=== PATIENT | male | born 1980 | race Caucasian/White ===

== ENCOUNTER 2016-12-07 15:01 | Inpatient (IN) | payer OTHER ==
[~2016-12-07] VITALS: Ht 162.6 cm; Wt 106.7 kg
[~2016-12-07 15:01] MED LIST: CLX40 PO; DSY50 PO; METH10TA2 PO; PRZ1 PO
[2016-12-07] MEDS ORDERED: LORAZEPAM 1 MG TAB SL STA ×2 (15:43→16:38)
[2016-12-07] MEDS ORDERED: [UNRECOGNIZED DRUG - CODE] PO (15:46)
[2016-12-07 15:51] LABS: URINE APPEARANCE CLEAR (CLEAR); URINE BILIRUBIN NEG (NEG); URINE COLOR DK YELLOW; URINE NITRITE NEG (NEG); URINE SPECIFIC GRAVITY 1.029 (1.000-1.030); UROBILINOGEN NEG (NEG); ZZUR CULT IF INDIC CLEAN CATCH NO
[2016-12-07 15:53] LABS: MANUAL MICROSCOPIC REQUIRED? NO; REVIEW REQ? NO
[2016-12-07 16:20] LABS: BASO % 0.4 %; BASO ABS # 0.05 K/uL (0-0.2); COMPLETE YES; EOS % 1.8 %; HEMATOCRIT 44.3 % (42-52); IG% 0.6 %; LYMPH % 32.9 %; LYMPH ABS # 4.32 K/uL (1.2-3.4); MEAN CELL VOLUME 91.2 fL (80-100); MEAN CORPUSCULAR HEMOGLOBIN 31.9 pg (25-34); MEAN PLATELET VOLUME 9.5 fL (7.4-10.4); NEUT % 56.3 %; PLATELET COUNT 266 K/uL (130-400); RED BLOOD COUNT 4.86 M/uL (4.7-6.1); WHITE BLOOD COUNT 13.15 K/uL (4.8-10.8)
[2016-12-07 16:30] LABS: BENZODIAZEPINE, URINE NEG (NEG); COCAINE,URINE NEG (NEG); PHENCYCLIDINE, URINE NEG (NEG)
[2016-12-07 16:38] LABS: BUN/CREATININE RATIO 12.3 (10-20); CALCIUM 9.1 mg/dl (8.5-10.1); CREATININE 1.2 mg/dl (0.60-1.40); POTASSIUM 3.8 mmol/L (3.5-5.1)
[2016-12-07 16:48] LABS: ALB/GLOB RATIO 0.8 (0.9-2); THYROID STIMULATING HORMONE 3.81 uIu/ml (0.300-4.500)
[2016-12-07 16:51] LABS: ACETAMINOPHEN < 2 ug/ml (10-30)
--- NOTE | 2016-12-07 17:51 | EMERGENCY ROOM VISIT NOTE ---
History Report prepared by Larisa: Heidy Varghese Under the Supervision of: Dr. Stas Bellamy M.D. First contact with patient: 15:18 Chief Complaint: MENTAL HEALTH EVALUATION Stated Complaint: SUICIDAL, SEVERE PANIC ATTACK, NIGHT TERROR History of Present Illness The patient is a 36 year old male who presents to the Emergency Room with complaints of a mental health evaluation. The patient goes to the methadone clinic and receives a dose of methadone daily, but when he went to the clinic today it was closed so he did not receive his dose of methadone. After trying to go to the clinic, the patient felt that he needed to come here to get help for depression. The patient states that he is depressed and is experiencing suicidal ideations. The patient states that he has a plan and his girlfriend adds that she is concerned that he will take action if she stops watching him so closely. The patient is also experiencing panic attacks in the mornings with mood swings. He states that he used to be on Celexa, Prazosin, and Trazodone but he has not taken those for 8-9 months. The patient's girlfriend states that the patient has been seeking help and has been in contact with multiple counties to try to get into a dual diagnosis clinic, but he has been unable to do so which is why he came into the ED. The patient states that he took 5 mg of Ritalin 3 days ago, but denies any other narcotic abuse. The patient's girlfriend adds that the patient is experiencing night terrors and wakes himself up every 15 minutes. She states that the patient used to be on a low dose of sleeping pills years ago. The patient denies chest pain, shortness of breath, abdominal pain, rashes, and any recent injuries. Source of History: patient Onset: earlier today Position: head Quality: other (mental health evaluation) Associated Symptoms: No SOB, No abdominal pain, No chest pain, No rash Note: night terrors, suicidal ideations, depression, no recent injuries Review of Systems See HPI for pertinent positives & negatives. A total of 10 systems reviewed and were otherwise negative. Past Medical & Surgical Medical Problems: (1) Acute gastroenteritis (2) Acute gastroenteritis (3) ACUTE PANCREATITIS (4) CALCULUS OF KIDNEY (5) Cholecystectomy (6) Chronic back pain (7) Gallbladder problem (8) Kidney stone (9) Moderate recurrent major depression (10) NONINF GASTROENTERIT NEC (11) POIS-SEDATIVE/HYPNOT NEC (12) Spasm of back muscles (13) Stomach problems (14) Thoracic back pain Family History Patient reports no known family medical history. Social History Smoking Status: Current Every Day Smoker Alcohol Use: none Drug Use: marijuana Marital Status: in relationship Housing Status: lives with family Occupation Status: employed Current/Historical Medications Scheduled Methadone HCl (Methadose), 129 MG PO DAILY Allergies Coded Allergies: No Known Allergies (Verified , 12/07/16) Physical Exam Vital Signs Date Time Temp Pulse Resp B/P Pulse Ox O2 Delivery O2 Flow Rate FiO2 12/07/16 15:16 37.0 120 18 154/94 94 Room Air Physical Exam GENERAL: Patient is anxious appearing and in no acute distress. Patient is pacing and picking at skin. HEENT: No acute trauma, normocephalic atraumatic, mucous membranes moist, no nasal congestion, no scleral icterus. NECK: No stridor, no adenopathy, no meningismus, trachea is midline. LUNGS: No dyspnea. Clear to auscultation and equal bilaterally. No wheeze, no rhonchi. HEART: Tachycardic rate and regular rhythm. No murmurs, rubs, gallops appreciated. ABDOMEN: Soft, nontender, bowel sounds positive, no masses appreciated, no peritonitis. BACK: No midline tenderness, no CVA tenderness EXTREMITIES: Normal motion all extremities, no cyanosis, no edema. NEUROLOGIC: Alert and oriented, no acute motor or sensory deficits, no focal weakness, cranial nerves grossly intact. SKIN: No rash, no jaundice, no diaphoresis. PSYCH: Admits depression, suicidal ideation with plan, denies homicidal ideation , denies hallucinations. Medical Decision & Procedures Laboratory Results 12/07/16 16:03 Red Blood Count 4.86, Mean Corpuscular Volume 91.2, Mean Corpuscular Hemoglobin 31.9, Mean Corpuscular Hemoglobin Concent 35.0, Mean Platelet Volume 9.5, Neutrophils (%) (Auto) 56.3, Lymphocytes (%) (Auto) 32.9, Monocytes (%) (Auto) 8.0, Eosinophils (%) (Auto) 1.8, Basophils (%) (Auto) 0.4, Neutrophils # (Auto) 7.41, Lymphocytes # (Auto) 4.32, Monocytes # (Auto) 1.05, Eosinophils # (Auto) 0.24, Basophils # (Auto) 0.05 12/07/16 16:03 Test 12/07/16 15:25 12/07/16 16:03 Urine Color DK YELLOW Urine Appearance CLEAR (CLEAR) Urine pH 5.0 (4.5-7.5) Urine Specific [place] 1.029 (1.000-1.030) Urine Protein NEG (NEG) Urine Glucose (UA) NEG (NEG) Urine Ketones TRACE (NEG) Urine Occult Blood NEG (NEG) Urine Nitrite NEG (NEG) Urine Bilirubin NEG (NEG) Urine Urobilinogen NEG (NEG) Urine Leukocyte Esterase TRACE (NEG) Urine WBC (Auto) 1-5 /hpf (0-5) Urine RBC (Auto) 0-4 /hpf (0-4) Urine Hyaline Casts (Auto) 1-5 /lpf (0-5) Urine Epithelial Cells (Auto) 5-10 /lpf (0-5) Urine Bacteria (Auto) NEG (NEG) Urine Opiates Screen NEG (NEG) Urine Methadone, Qualitative POS (NEG) Urine Barbiturates NEG (NEG) Urine Phencyclidine (PCP) Level NEG (NEG) Ur Amphetamine/Methamphetamine POS (NEG) MDMA (Ecstasy) Screen POS (NEG) Urine Benzodiazepines Screen NEG (NEG) Urine Cocaine Metabolite NEG (NEG) Urine Marijuana (THC) NEG (NEG) White Blood Count 13.15 K/uL (4.8-10.8) Red Blood Count 4.86 M/uL (4.7-6.1) Hemoglobin 15.5 g/dL (14.0-18.0) Hematocrit 44.3 % (42-52) Mean Corpuscular Volume 91.2 fL (80-100) Mean Corpuscular Hemoglobin 31.9 pg (25-34) Mean Corpuscular Hemoglobin Concent 35.0 g/dl (32-36) Platelet Count 266 K/uL (130-400) Mean Platelet Volume 9.5 fL (7.4-10.4) Neutrophils (%) (Auto) 56.3 % Lymphocytes (%) (Auto) 32.9 % Monocytes (%) (Auto) 8.0 % Eosinophils (%) (Auto) 1.8 % Basophils (%) (Auto) 0.4 % Neutrophils # (Auto) 7.41 K/uL (1.4-6.5) Lymphocytes # (Auto) 4.32 K/uL (1.2-3.4) Monocytes # (Auto) 1.05 K/uL (0.11-0.59) Eosinophils # (Auto) 0.24 K/uL (0-0.5) Basophils # (Auto) 0.05 K/uL (0-0.2) RDW Standard Deviation 45.5 fL (36.4-46.3) RDW Coefficient of Variation 13.6 % (11.5-14.5) Immature Granulocyte % (Auto) 0.6 % Immature Granulocyte # (Auto) 0.08 K/uL (0.00-0.02) Anion Gap 7.0 mmol/L (3-11) Est Creatinine Clear Calc Drug Dose 95.1 ml/min Estimated GFR () 90.3 Estimated GFR (Non- 77.9 BUN/Creatinine Ratio 12.3 (10-20) Calcium Level 9.1 mg/dl (8.5-10.1) Total Bilirubin 0.5 mg/dl (0.2-1) Aspartate Amino Transf (AST/SGOT) 85 U/L (15-37) Alanine Aminotransferase (ALT/SGPT) 144 U/L (12-78) Alkaline Phosphatase 87 U/L (45-117) Total Protein 8.0 gm/dl (6.4-8.2) Albumin 3.6 gm/dl (3.4-5.0) Globulin 4.4 gm/dl (2.5-4.0) Albumin/Globulin Ratio 0.8 (0.9-2) Thyroid Stimulating Hormone (TSH) 3.810 uIu/ml (0.300-4.500) Salicylates Level 2.7 mg/dl (2.8-20) Acetaminophen Level < 2 ug/ml (10-30) Ethyl Alcohol mg/dL < 3.0 mg/dl (0-3) Laboratory results as reviewed by me. Medications Administered Medications (Trade) Dose Ordered Sig/Jaime Route Start Time Stop Time Status Last Admin Dose Admin Lorazepam (Ativan Tab) 1 mg NOW STAT SL 12/07/16 15:43 12/07/16 15:44 DC 12/07/16 15:47 1 MG Lorazepam (Ativan Tab) 1 mg NOW STAT SL 12/07/16 16:38 12/07/16 16:39 DC 12/07/16 16:41 1 MG ED Course 1523: The patient was evaluated in room A8. A complete history and physical exam was performed. 1543: Ordered Ativan Tab 1 mg SL 1638: Ordered Ativan Tab 1 mg SL 1701: I informed the psych caseworker that the patient is medically clear. 174: The psych caseworker informed me that the patient has been accepted to [address] [place] [address]. Medical Decision Differential: Mood Disorder, Overdose, Infectious, Electrolyte Abnormality, Cardiac, Hepatic, Endocrine, Toxicologic, Neurologic, amongst other pathologies entertained. 36 yr old male with long psychiatric history and previous suicide attempts arrives for mental health evaluation. Admits long time worsening of suicidal ideation and depression to point with significant other doesn't feel safe leaving him alone. Is on Methadone and sounds like not getting dose today finally put over edge to critical point he is now. Very anxious on arrival thus given PO ativan with improvement. Mild LFT elevation of uncertain etiology though without having Overdosed and no reported other issues this may just be mild dehydration related vs early MORLEY. I do not feel it precludes him from mental health evaluation but he will need follow up as outpatient for further evaluation. He is medically clear for mental health evaluation. He was accepted to [address] [place] [address] for further treatment. Impression Primary Impression: Mood disorder Additional Impressions: Suicidal ideation Methadone use Anxiety Dehydration Scribe Attestation The scribe's documentation has been prepared under my direction and personally reviewed by me in its entirety. I confirm that the note above accurately reflects all work, treatment, procedures, and medical decision making performed by me. Departure Information Dispostion Mental Health Acute Care ([address] [place] [address]) Referrals Olivia Amin M.D. (MEDICAL) (PCP) Patient Instructions My [facility] Problem Qualifiers
[2016-12-07 18:13] VITALS: BP 135/98; PULSE 112; TEMP 37.1; Ht 162.6 cm; Wt 106.7 kg
[2016-12-07] MEDS ORDERED: NURSING VERBAL MED ORDER ONE (18:15)
[2016-12-07 18:30] VITALS: O2SAT 93
[2016-12-07] MEDS ORDERED: MAGNESIUM HYDROXIDE SUSP 30 ML UDC PO PRN (19:15)
[2016-12-07] MEDS ORDERED: CLONIDINE HCL 0.1 MG TAB PO PRN (19:15)
[2016-12-07] MEDS ORDERED: ACETAMINOPHEN 325 MG TAB PO PRN (19:15)
[2016-12-07] MEDS ORDERED: SODIUM CHLORIDE 0.65% NA SOLN 45 ML (OCEAN) PRN (19:15)
[2016-12-07] MEDS ORDERED: BISMUTH SUBSALICYLATE PER ML OMNICELL CHARGE PO PRN (19:15)
[2016-12-07] MEDS ORDERED: hydrOXYzine HCL 25 MG TAB PO PRN (19:15)
[2016-12-07] MEDS ORDERED: ALUMINUM/MAGNESIUM SUSP 30 ML UDC PO PRN (19:15)
[2016-12-07] MEDS: hydrOXYzine HCL 25 MG TAB PO PRN (21:08)
[2016-12-07 23:01] VITALS: BP 129/86; PULSE 99
[2016-12-08 07:05] VITALS: BP_SYST 121; BP_SYST 123; BP_DIAS 81; BP_DIAS 83; PULSE 80; PULSE 90; TEMP 36.5
[2016-12-08] MEDS: NICOTINE 14 MG/24 HR TDSY TD SCH (08:48)
[2016-12-08] MEDS: METHADONE ORAL SOLN 2 MG/1ML PO SCH (09:05)
[2016-12-08] MEDS ORDERED: ESCITALOPRAM OXALATE 10 MG TAB PO ONE (11:00)
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
[2016-12-08] MEDS: PRAZOSIN HCL 1 MG CAP PO SCH (21:32)
[2016-12-09 06:50] VITALS: BP_SYST 140; BP_SYST 145; BP_DIAS 87; BP_DIAS 94; PULSE 65; PULSE 78; TEMP 36.7
[2016-12-09] MEDS: ESCITALOPRAM OXALATE 10 MG TAB PO SCH (08:51)
[2016-12-09] MEDS: METHADONE ORAL SOLN 2 MG/1ML PO SCH (08:52)
[2016-12-09] MEDS: NICOTINE 14 MG/24 HR TDSY TD SCH (09:00)
--- NOTE | 2016-12-09 12:54 | Psychiatric Progress Notes ---
Progress Note Date of Service Dec 09, 2016. Interval History 36 yo male admitted 12/08 on a voluntary basis after presenting with depression and suicidality after missing his appt to get his methadone that morning. Chief Complaint "Down.". Subjective Patient was seen & assessed interval progress reviewed with Treatment Team. The patient had a meeting with his fiance this AM that he felt went well. They talked about what he needed to do to get better, including taking his meds and working on his addictions. He says that he is willing to consider a rehab or a partial hospitalization. He says that his mood is "down" today, worrying about when or whether he will begin to feel better. He reports "very high" anxiety about this. He denies SI. Sleep was impaired last night, waking frequently, but did not ask for any sleep meds. He has continued to try to be isolative, but staff have encouraged him to go to group, and now says he knows that its better to talk than to hide. He is committed to attending OP appts for mental health treatment. He denies any opiate withdrawal symptoms or cravings since he is on methadone. Review of Systems Constitutional: + fatigue ENT: No dental problems, No hearing loss, No nasal symptoms, No problem reported, No sore throat, No tinnitus, No trouble swallowing, No unusual epistaxis Respiratory: No cough, No dyspnea at rest, No dyspnea on exertion, No hemoptysis, No problem reported, No shortness of breath, No sputum, No wheezing Cardiovascular: No PND, No chest pain, No claudication, No edema, No orthopnea , No palpitations, No problem reported Abdomen: No GI bleeding, No constipation, No diarrhea, No nausea, No pain, No problem reported, No vomiting Musculoskeletal: No calf pain, No joint pain, No muscle pain, No problem reported, No swelling Neurologic: No balance problems, No memory loss, No numbness/tingling, No paralysis, No problem reported, No vertigo, No weakness Psychiatric: + anxiety, + depression symptoms, + insomnia Integumentary: No bleeding, No color change, No itch, No new/changing skin lesions, No problem reported, No rash Sleep Information Total Hours of Sleep: 6.25 Meal Information Percent of Breakfast Consumed: 0 Percent of Lunch Consumed: 90 Percent of Dinner Consumed: 50 Mental Status Exam During interview pt is: alert and oriented, cooperative Appearance: appropriately dressed Eye contact is: fair Motor behavior is: steady gait & station Speech: normal in rate, rhythm & volume Affect: mood congruent, depressed, flat Mood is: depressed Thought process: goal directed Thought content: reality based without delusions Suicidal thought are: denied Homicidal thoughts are: denied Hallucinations: denies auditory, denies visual Cognition: memory grossly intact, attention grossly intact Intelligence estimated to be: average Insight: impaired Judgement: impaired Impression Adjusting to the unit and to restarting meds. Denies side effects. Is cooperative with treatment including possible inpatient rehab. Will initiate referrals today. REmains with poor coping skills, but willing to listen to staff's encouragements to get out of bed and be with his peers. Appears anxious , and in need of direction. Plan (1) Major depressive disorder, recurrent severe without psychotic features 12/09 - Continue Lexapro 10 mg daily - Q 15 min checks for safety - Encourage participation in group and individual counseling - Family meeting done today with fiance - The patient will psychiatric aftercare - Assist the patient to learn and utilize healthy coping strategies. - EKG completed QTC WNL (2) PTSD (post-traumatic stress disorder) (3) Opiate dependence 12/09 - Continue OP dosing of Methadone - Coordinate with [facility] (4) Cannabis use disorder, mild, abuse 12/09 - Recommend abstinence (5) Tobacco use disorder 12/09 - Counseled about the detrimental effects of nicotine - Provided with a nicotine patch for cessation (6) Antisocial personality disorder 12/09 - Recommend therapy Discharge / Aftercare Planning Primary Care Physician: Name: Therapist: Name: memo Environmental Engineering Manager: Name: memo Visit Code E&M Code: 64867 Risk Factors Assessment Male: Yes : Yes /single/: Yes Higher / Fall in social status: No Health problems: No Mental Health Diagnoses: Yes Substance use disorders: Yes Protective Factors Assessment Rastafarian beliefs: No : No Responsible for young children: No Employed: No Stable relationships: Yes Supportive family: Yes Data Vital Signs Last 24 Hrs: Date Time Temp Pulse Resp B/P Pulse Ox O2 Delivery O2 Flow Rate FiO2 12/09/16 06:50 36.7 78 16 140/94 65 145/87 Meds Administered Last 24 Hrs: Meds Administered (Past 24Hrs) Medications (Trade) Dose Ordered Sig/Jaime Route Start Time Stop Time Status Last Admin Dose Admin Lorazepam (Ativan Tab) 1 mg NOW STAT SL 12/07/16 15:43 12/07/16 15:44 DC 12/07/16 15:47 1 MG Lorazepam (Ativan Tab) 1 mg NOW STAT SL 12/07/16 16:38 12/07/16 16:39 DC 12/07/16 16:41 1 MG Hydroxyzine HCl (Vistaril Tab) 50 mg HSZ PRN PO 12/07/16 19:15 01/06/17 19:14 12/07/16 21:08 50 MG Clonidine HCl (Catapres Tab) 0.1 mg TID PRN PO 12/07/16 19:15 12/08/16 09:57 DC 12/07/16 22:58 0.1 MG Methadone HCl (Methadone HCl) 129 mg DAILY PO 12/08/16 09:00 12/22/16 08:59 12/09/16 08:52 129 MG Prazosin HCl (Prazosin) 2 mg HS PO 12/08/16 22:00 01/07/17 21:59 12/08/16 21:32 2 MG Escitalopram Oxalate (Lexapro Tab) 10 mg QAM PO 12/09/16 09:00 01/08/17 08:59 12/09/16 08:51 10 MG Escitalopram Oxalate (Lexapro Tab) 10 mg NOW ONCE PO 12/08/16 11:00 12/08/16 11:01 DC 12/08/16 10:50 10 MG Lab Results Last 24 Hrs: 12/07/16 16:03 Red Blood Count 4.86, Mean Corpuscular Volume 91.2, Mean Corpuscular Hemoglobin 31.9, Mean Corpuscular Hemoglobin Concent 35.0, Mean Platelet Volume 9.5, Neutrophils (%) (Auto) 56.3, Lymphocytes (%) (Auto) 32.9, Monocytes (%) (Auto) 8.0, Eosinophils (%) (Auto) 1.8, Basophils (%) (Auto) 0.4, Neutrophils # (Auto) 7.41, Lymphocytes # (Auto) 4.32, Monocytes # (Auto) 1.05, Eosinophils # (Auto) 0.24, Basophils # (Auto) 0.05 12/07/16 16:03 Test 12/07/16 15:25 12/07/16 16:03 Urine Color DK YELLOW Urine Appearance CLEAR (CLEAR) Urine pH 5.0 (4.5-7.5) Urine Specific [place] 1.029 (1.000-1.030) Urine Protein NEG (NEG) Urine Glucose (UA) NEG (NEG) Urine Ketones TRACE (NEG) Urine Occult Blood NEG (NEG) Urine Nitrite NEG (NEG) Urine Bilirubin NEG (NEG) Urine Urobilinogen NEG (NEG) Urine Leukocyte Esterase TRACE (NEG) Urine WBC (Auto) 1-5 /hpf (0-5) Urine RBC (Auto) 0-4 /hpf (0-4) Urine Hyaline Casts (Auto) 1-5 /lpf (0-5) Urine Epithelial Cells (Auto) 5-10 /lpf (0-5) Urine Bacteria (Auto) NEG (NEG) Urine Opiates Screen NEG (NEG) Urine Methadone, Qualitative POS (NEG) Urine Barbiturates NEG (NEG) Urine Phencyclidine (PCP) Level NEG (NEG) Ur Amphetamine/Methamphetamine POS (NEG) MDMA (Ecstasy) Screen POS (NEG) Urine Benzodiazepines Screen NEG (NEG) Urine Cocaine Metabolite NEG (NEG) Urine Marijuana (THC) NEG (NEG) White Blood Count 13.15 K/uL (4.8-10.8) Red Blood Count 4.86 M/uL (4.7-6.1) Hemoglobin 15.5 g/dL (14.0-18.0) Hematocrit 44.3 % (42-52) Mean Corpuscular Volume 91.2 fL (80-100) Mean Corpuscular Hemoglobin 31.9 pg (25-34) Mean Corpuscular Hemoglobin Concent 35.0 g/dl (32-36) Platelet Count 266 K/uL (130-400) Mean Platelet Volume 9.5 fL (7.4-10.4) Neutrophils (%) (Auto) 56.3 % Lymphocytes (%) (Auto) 32.9 % Monocytes (%) (Auto) 8.0 % Eosinophils (%) (Auto) 1.8 % Basophils (%) (Auto) 0.4 % Neutrophils # (Auto) 7.41 K/uL (1.4-6.5) Lymphocytes # (Auto) 4.32 K/uL (1.2-3.4) Monocytes # (Auto) 1.05 K/uL (0.11-0.59) Eosinophils # (Auto) 0.24 K/uL (0-0.5) Basophils # (Auto) 0.05 K/uL (0-0.2) RDW Standard Deviation 45.5 fL (36.4-46.3) RDW Coefficient of Variation 13.6 % (11.5-14.5) Immature Granulocyte % (Auto) 0.6 % Immature Granulocyte # (Auto) 0.08 K/uL (0.00-0.02) Anion Gap 7.0 mmol/L (3-11) Est Creatinine Clear Calc Drug Dose 95.1 ml/min Estimated GFR () 90.3 Estimated GFR (Non- 77.9 BUN/Creatinine Ratio 12.3 (10-20) Calcium Level 9.1 mg/dl (8.5-10.1) Total Bilirubin 0.5 mg/dl (0.2-1) Aspartate Amino Transf (AST/SGOT) 85 U/L (15-37) Alanine Aminotransferase (ALT/SGPT) 144 U/L (12-78) Alkaline Phosphatase 87 U/L (45-117) Total Protein 8.0 gm/dl (6.4-8.2) Albumin 3.6 gm/dl (3.4-5.0) Globulin 4.4 gm/dl (2.5-4.0) Albumin/Globulin Ratio 0.8 (0.9-2) Thyroid Stimulating Hormone (TSH) 3.810 uIu/ml (0.300-4.500) Salicylates Level 2.7 mg/dl (2.8-20) Acetaminophen Level < 2 ug/ml (10-30) Ethyl Alcohol mg/dL < 3.0 mg/dl (0-3) Hepatitis C Antibody NEG (NEG) Problem Qualifiers (1) Opiate dependence: Substance use status: with opioid-induced mood disorder Qualified Codes: F11.24 - Opioid dependence with opioid-induced mood disorder
[2016-12-09] MEDS: hydrOXYzine HCL 25 MG TAB PO PRN ×2 (22:13→22:54)
[2016-12-09] MEDS: PRAZOSIN HCL 1 MG CAP PO SCH (22:13)
[2016-12-09 22:37] VITALS: BP 150/105; PULSE 68
[2016-12-10 06:39] VITALS: BP_SYST 125; BP_SYST 135; BP_DIAS 82; BP_DIAS 84; PULSE 64; PULSE 90; TEMP 36.8
[2016-12-10] MEDS: ESCITALOPRAM OXALATE 10 MG TAB PO SCH (08:58)
[2016-12-10] MEDS: METHADONE ORAL SOLN 2 MG/1ML PO SCH (08:58)
[2016-12-10] MEDS: NICOTINE 14 MG/24 HR TDSY TD SCH (09:00)
--- NOTE | 2016-12-10 10:51 | Psychiatric Progress Notes ---
Progress Note Date of Service Dec 10, 2016. Interval History 36 yo male admitted 12/08 on a voluntary basis after presenting with depression and suicidality after missing his appt to get his methadone that morning. Chief Complaint "I had an argument with my finance last night, Bad timing,I really did not need that". Subjective Patient was seen & assessed interval progress reviewed with nursing. Pt had a family meeting with his finance yesterday that he stated went ok. However, afterwards his finance and him had several phone calls that were rather intense with them arguing. His finance also contact the nursing staff last evening with a intense tone over concerns that pt could be discharged before he was stabilized. Last night at 2034 he signed a 72 hour notice tied to being upset. He shared that he really did not sleep much last night and that this was worse then his baseline poor sleep. This morning pt is not up for talking much about the situation between her and him. He is quite tired and feels upset. He views last night's tension with her as sending him backwards and making it even harder for him to engage in groups and in being an active participant to his care. He described not having things to live for besides his relationship with his finance and with his children. HE did not voice a suicidal plan or intent but alluded to para-suicidal concerns given his concerns about the relationship. He is still interested in inpt rehab. He denied cravings for substances. He is considering rescinding the 72 hour notice but not yet ready to do so. He endorsed constant paranoid thinking. He denied AH or VH. He denied HI. Pt denied s/e to lexapro, although he is a bit weary of possible sexual s/e. He vies prazosin as helping his sleep terrors but not his insomnia and has not foudn Vistaril helpful. He is seeking to be rx'd trazodone since it was helpful in the past, stating took it at 150mg at bedtime. Review of Systems Constitutional: + fatigue Respiratory: No cough, No dyspnea at rest, No dyspnea on exertion, No hemoptysis, No problem reported, No shortness of breath, No sputum, No wheezing Cardiovascular: No PND, No chest pain, No claudication, No edema, No orthopnea , No palpitations, No problem reported Abdomen: No GI bleeding, No constipation, No diarrhea, No nausea, No pain, No problem reported, No vomiting Neurologic: No balance problems, No memory loss, No numbness/tingling, No paralysis, No problem reported, No vertigo, No weakness Psychiatric: + anhedonism, + anxiety, + depression symptoms, + insomnia Sleep Information Total Hours of Sleep: 6.50 pt reported rather limited sleep last night Meal Information Percent of Breakfast Consumed: 0 Percent of Lunch Consumed: 100 Percent of Dinner Consumed: 90 Mental Status Exam During interview pt is: alert and oriented, cooperative Appearance: appropriately dressed Eye contact is: poor Motor behavior is: steady gait & station Speech: normal in rate, rhythm & volume, other (speech with increased latency of onset and slightly low in vol) Affect: mood congruent, depressed, flat Mood is: depressed Thought process: goal directed Thought content: reality based without delusions Suicidal thought are: denied Homicidal thoughts are: denied Hallucinations: denies auditory, denies visual Cognition: memory grossly intact, attention grossly intact Intelligence estimated to be: average Insight: impaired Judgement: impaired Impression He was getting adjusted to the unit, last evening had argument with gf that got intense (phone calls) and pt signed 72 hour notice. Pt is seeking referrals to in substance treatment centers and is considering rescinding the 72 hour notice, indicating likely to do but not quite yet. HE is seeking to have some time to settle self down from yesterdays argument and then reconnect with finance. He is finding it quite hard to attend groups today. Sleep impacted, pt seeking trial fo trazodone that was helpful in past. He has poor coping skills, but willing to listen to staff's encouragements. Appears anxious, and in need of direction but also sensitive to feeling pushed. Plan (1) Major depressive disorder, recurrent severe without psychotic features 12/09 - Continue Lexapro 10 mg daily - Q 15 min checks for safety - Encourage participation in group and individual counseling - Family meeting done today with fiance - The patient will psychiatric aftercare - Assist the patient to learn and utilize healthy coping strategies. - EKG completed QTC WNL 12/10 - continue lexapro 10mg qday - staff to maintain boundaries and unit rules with gf (appropriate times for phone calls) - add trazodone hs for sleep, will start at trazodone at 100mg hs given past response to trazodone - encourage group participation - seeking inpt substance rehab - referrals placed 12/09 - pt states leaning towards rescinding 72 hour notice (2) PTSD (post-traumatic stress disorder) (3) Opiate dependence 12/09 - Continue OP dosing of Methadone - Coordinate with [facility] (4) Cannabis use disorder, mild, abuse 12/09 - Recommend abstinence (5) Tobacco use disorder 12/09 - Counseled about the detrimental effects of nicotine - Provided with a nicotine patch for cessation (6) Antisocial personality disorder 12/09 - Recommend therapy Discharge / Aftercare Planning Primary Care Physician: Name: Psychiatrist: Name: [employer] Medication Management Date of Appointment: Feb 14, 2017 Time of Appointment: Therapist: Name: memo Tool Checker: Name: memo Visit Code E&M Code: 19592 Risk Factors Assessment Male: Yes : Yes /single/: Yes Higher / Fall in social status: No Health problems: No Mental Health Diagnoses: Yes Substance use disorders: Yes Protective Factors Assessment Sikh beliefs: No : No Responsible for young children: No Employed: No Stable relationships: Yes Supportive family: Yes Data Vital Signs Last 24 Hrs: Date Time Temp Pulse Resp B/P Pulse Ox O2 Delivery O2 Flow Rate FiO2 12/10/16 06:39 36.8 64 16 125/82 90 135/84 12/09/16 22:37 68 16 150/105 Meds Administered Last 24 Hrs: Meds Administered (Past 24Hrs) Medications (Trade) Dose Ordered Sig/Jaime Route Start Time Stop Time Status Last Admin Dose Admin Prazosin HCl (Prazosin) 2 mg HS PO 12/08/16 22:00 01/07/17 21:59 12/09/16 22:13 2 MG Escitalopram Oxalate (Lexapro Tab) 10 mg QAM PO 12/09/16 09:00 01/08/17 08:59 12/10/16 08:58 10 MG Escitalopram Oxalate (Lexapro Tab) 10 mg NOW ONCE PO 12/08/16 11:00 12/08/16 11:01 DC 12/08/16 10:50 10 MG Problem Qualifiers (1) Opiate dependence: Substance use status: with opioid-induced mood disorder Qualified Codes: F11.24 - Opioid dependence with opioid-induced mood disorder
[2016-12-10] MEDS: PRAZOSIN HCL 1 MG CAP PO SCH (22:15)
[2016-12-10] MEDS: TRAZODONE HCL 100 MG TAB PO SCH (22:15)
[2016-12-11 06:53] VITALS: BP_SYST 100; BP_SYST 102; BP_DIAS 65; BP_DIAS 67; PULSE 69; PULSE 96; TEMP 36.7
[2016-12-11] MEDS: ESCITALOPRAM OXALATE 10 MG TAB PO SCH (08:34)
[2016-12-11] MEDS: METHADONE ORAL SOLN 2 MG/1ML PO SCH (08:35)
[2016-12-11] MEDS: NICOTINE 14 MG/24 HR TDSY TD SCH (08:38)
--- NOTE | 2016-12-11 21:12 | Psychiatric Progress Notes ---
Progress Note Date of Service Dec 11, 2016. Interval History 36 yo male admitted 12/08 on a voluntary basis after presenting with depression and suicidality after missing his appt to get his methadone that morning. Chief Complaint "working things out with finance". after speaking to her last night Subjective Patient was seen & assessed interval progress reviewed with nursing pt has not yet rescind his 72 hour notice, this morning he stated leaning 90% towards doing so likely after finance visits in afternoon, inquired about the connection between finance and his 72 hour notice and he was not sure. Does admitted to distress over their argument Monday night and how it made him want to leave [place] at that time. Pt spoke to her by phone last evening and clarified things and she is more settled per him ( argument over old emails before they were together per pt). pt vaguely endorsed SI with hopelessness denied plan but endorsed not safe to leave. He endorsed not being ready to leave. He was not attending groups but did attend a group later in morning per staff. He endorsed paranoid thinking towards others that are described in manner of social anxiety. He endorsed hearing him named called yesterday in voice that sounded like his mother, pt was in his bed laying and does not think was asleep but had been drifting in and out of sleep at times yesterday, he stated a few times heard things like that in past few weeks but never before that. He denied other hallucination or related concerns. depression ongoing, sleep improved some last night but still only fair and some insomnia, pt finds trazodone alleviating factor and denied s/e from it , denied feeling more fatigue this morning, per staff ,did eat breakfast with peers. seeming shy and anxious. pt seeking inpt rehab but weary of process to get accepted denied craving of substances Sleep Information Total Hours of Sleep: 5.00 Meal Information Percent of Breakfast Consumed: 100 Percent of Lunch Consumed: 100 Percent of Dinner Consumed: 100 Mental Status Exam During interview pt is: alert and oriented, cooperative Appearance: appropriately dressed Eye contact is: fair Motor behavior is: steady gait & station Speech: normal in rate, rhythm & volume, other Affect: mood congruent, depressed, flat, anxious Mood is: depressed, anxious Thought process: goal directed Thought content: reality based without delusions Suicidal thought are: denied (specific thougths but referred to concerns and hopelessness ), Plan: denied, Intent: denied Homicidal thoughts are: denied Hallucinations: auditory (but likely hypnopompic of hearing his named called, perhaps even actually by staff ) Cognition: memory grossly intact, attention grossly intact Intelligence estimated to be: average Insight: impaired Judgement: impaired Impression 72 notice signed not rescinded yet despite stating leaning to, seeking inpt rehab, 72 hour notice up 12/12. 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 suicidality lexapro, prazosin, trazodone added for insomnia Plan (1) Major depressive disorder, recurrent severe without psychotic features 12/09 - Continue Lexapro 10 mg daily - Q 15 min checks for safety - Encourage participation in group and individual counseling - Family meeting done today with fiance - The patient will psychiatric aftercare - Assist the patient to learn and utilize healthy coping strategies. - EKG completed QTC WNL 12/10 - continue lexapro 10mg qday - staff to maintain boundaries and unit rules with gf (appropriate times for phone calls) - add trazodone hs for sleep, will start at trazodone at 100mg hs given past response to trazodone - encourage group participation - seeking inpt substance rehab - referrals placed 12/09 - pt states leaning towards rescinding 72 hour notice 12/11 maintain meds unchanged (2) PTSD (post-traumatic stress disorder) (3) Opiate dependence 12/09 - Continue OP dosing of Methadone - Coordinate with [facility] (4) Cannabis use disorder, mild, abuse 12/09 - Recommend abstinence (5) Tobacco use disorder 12/09 - Counseled about the detrimental effects of nicotine - Provided with a nicotine patch for cessation (6) Antisocial personality disorder 12/09 - Recommend therapy Discharge / Aftercare Planning Primary Care Physician: Name: Psychiatrist: Name: Linda [employer]RO[employer] Medication Management Date of Appointment: Feb 14, 2017 Time of Appointment: Therapist: Name: memo Asset Card Clerk: Name: memo Visit Code E&M Code: 64825 Risk Factors Assessment Male: Yes : Yes /single/: Yes Higher / Fall in social status: No Health problems: No Mental Health Diagnoses: Yes Substance use disorders: Yes Protective Factors Assessment Buddhist beliefs: No : No Responsible for young children: No Employed: No Stable relationships: Yes Supportive family: Yes Data Vital Signs Last 24 Hrs: Date Time Temp Pulse Resp B/P Pulse Ox O2 Delivery O2 Flow Rate FiO2 12/11/16 06:53 36.7 69 16 100/65 96 102/67 Meds Administered Last 24 Hrs: Meds Administered (Past 24Hrs) Medications (Trade) Dose Ordered Sig/Jaime Route Start Time Stop Time Status Last Admin Dose Admin Trazodone HCl (Desyrel Tab) 100 mg HS PO 12/10/16 22:00 01/09/17 21:59 12/10/16 22:15 100 MG Problem Qualifiers (1) Opiate dependence: Substance use status: with opioid-induced mood disorder Qualified Codes: F11.24 - Opioid dependence with opioid-induced mood disorder
[2016-12-11] MEDS: TRAZODONE HCL 100 MG TAB PO SCH (22:59)
[2016-12-11] MEDS: PRAZOSIN HCL 1 MG CAP PO SCH (22:59)
[2016-12-12 07:00] VITALS: BP_SYST 102; BP_SYST 111; BP_DIAS 72; BP_DIAS 80; PULSE 60; PULSE 91; TEMP 36.4
[2016-12-12] MEDS: NICOTINE 14 MG/24 HR TDSY TD SCH (09:00)
[2016-12-12] MEDS: ESCITALOPRAM OXALATE 10 MG TAB PO SCH (09:17)
[2016-12-12] MEDS: METHADONE ORAL SOLN 2 MG/1ML PO SCH (09:18)
[2016-12-12 12:30] LABS: METHADONE METABOLITE 31100 NG/ML (CUTOFF=100); METHADONE VERIFIC >40000 NG/ML (CUTOFF=100)
--- NOTE | 2016-12-12 13:15 | Psychiatric Progress Notes ---
Progress Note Date of Service Dec 12, 2016. Interval History 36 yo male admitted 12/08 on a voluntary basis after presenting with depression and suicidality after missing his appt to get his methadone that morning. Chief Complaint "Okay, I had a little setback". Subjective Patient was seen & assessed interval progress reviewed with Treatment Team. Staff report he had a difficult weekend, was fighting with his girlfriend, and agreed to meet with the [facility] about inpatient rehab referrals. He is refusing groups, saying they make him anxious. He endorses a tumultuous relationship with his girlfriend, and is requesting she be allowed to visit him outside normal visiting hours today. He was upset when he was given a roommate, saying he'd prefer to have a private room. Today, he says he is going to go to groups and make an effort to participate in his treatment. He also rescinded his 72 hour notice, saying he "needs to do what I came here to do," and wants to "get started on meds, stay on them, go to my appointments, and actually follow through." He says he "wants to get stabilized," and recognizes that he has not been compliant with treatment in the past, which led to relapse. He denies SI and says his mood is "improving." He rates it a 6 out of 10. Appetite is good, sleep is impaired but improving with trazodone. He denies side effects to meds. Sleep Information Total Hours of Sleep: 4.50 Meal Information Percent of Breakfast Consumed: 75 Percent of Lunch Consumed: 100 Percent of Dinner Consumed: 100 Mental Status Exam During interview pt is: alert and oriented, cooperative Appearance: appropriately dressed, appropriately groomed (obese, long hair pulled back, agrawal, malodorous) Eye contact is: fair Motor behavior is: steady gait & station, no abnormal motor movements, psychomotor retardation Speech: normal in rate, rhythm & volume, other Affect: mood congruent, depressed, anxious Mood is: other ("improving") Thought process: goal directed Thought content: reality based without delusions Suicidal thought are: denied Homicidal thoughts are: denied Hallucinations: denies auditory, denies visual Cognition: memory grossly intact, attention grossly intact Intelligence estimated to be: average Insight: impaired Judgement: impaired Impression He submitted a 72 notice after getting into a fight with his girlfriend, but rescinded it today. He has been isolating and refusing groups, but today agrees to go. He is interested in inpt rehab, and [facility] staff met with him today. 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 suicidality Plan (1) Major depressive disorder, recurrent severe without psychotic features 12/09 - Continue Lexapro 10 mg daily - Q 15 min checks for safety - Encourage participation in group and individual counseling - Family meeting done today with kurtance - The patient will psychiatric aftercare - Assist the patient to learn and utilize healthy coping strategies. - EKG completed QTC WNL 12/10 - continue lexapro 10mg qday - staff to maintain boundaries and unit rules with gf (appropriate times for phone calls) - add trazodone hs for sleep, will start at trazodone at 100mg hs given past response to trazodone - encourage group participation - seeking inpt substance rehab - referrals placed 12/09 - pt states leaning towards rescinding 72 hour notice 12/11 - maintain meds unchanged 12/12 - Continue escitalopram 10mg, trazodone 100mg qhs, and prazosin 2mg qhs. (2) PTSD (post-traumatic stress disorder) Meds as above. Refer for therapy. (3) Opiate dependence 12/09 - Continue OP dosing of Methadone - Coordinate with [facility] (4) Cannabis use disorder, mild, abuse 12/09 - Recommend abstinence - Will refer for outpatient therapy and psychiatric f/u to address mental illness and substance abuse. (5) Tobacco use disorder 12/09 - Counseled about the detrimental effects of nicotine - Provided with a nicotine patch for cessation (6) Antisocial personality disorder 12/09 - Recommend therapy Discharge / Aftercare Planning Primary Care Physician: Name: Psychiatrist: Name: Linda Mc4 Medication Management Date of Appointment: Feb 14, 2017 Time of Appointment: Therapist: Name: memo Illuminator: Name: memo Visit Code E&M Code: 65133 Risk Factors Assessment Male: Yes : Yes /single/: Yes Higher / Fall in social status: No Access to guns: No Health problems: No Mental Health Diagnoses: Yes Substance use disorders: Yes Protective Factors Assessment Gnosticism beliefs: No : No Responsible for young children: No Employed: No Stable relationships: Yes Supportive family: Yes Data Vital Signs Last 24 Hrs: Date Time Temp Pulse Resp B/P Pulse Ox O2 Delivery O2 Flow Rate FiO2 12/12/16 07:00 36.4 60 16 102/80 91 111/72 Meds Administered Last 24 Hrs: Meds Administered (Past 24Hrs) Medications (Trade) Dose Ordered Sig/Jaime Route Start Time Stop Time Status Last Admin Dose Admin Trazodone HCl (Desyrel Tab) 100 mg HS PO 12/10/16 22:00 01/09/17 21:59 12/11/16 22:59 100 MG Problem Qualifiers (1) Opiate dependence: Substance use status: with opioid-induced mood disorder Qualified Codes: F11.24 - Opioid dependence with opioid-induced mood disorder
[2016-12-12] MEDS: TRAZODONE HCL 100 MG TAB PO SCH (22:43)
[2016-12-12] MEDS: PRAZOSIN HCL 1 MG CAP PO SCH (22:44)
[2016-12-13 06:59] VITALS: BP_SYST 121; BP_SYST 128; BP_DIAS 73; BP_DIAS 80; PULSE 54; PULSE 85; TEMP 36.5
[2016-12-13] MEDS: NICOTINE 14 MG/24 HR TDSY TD SCH (08:12)
[2016-12-13] MEDS: ESCITALOPRAM OXALATE 10 MG TAB PO SCH (08:39)
[2016-12-13] MEDS: METHADONE ORAL SOLN 2 MG/1ML PO SCH (08:39)
--- NOTE | 2016-12-13 11:50 | Psychiatric Progress Notes ---
Progress Note Date of Service Dec 13, 2016. Interval History 36 yo male admitted 12/08 on a voluntary basis after presenting with depression and suicidality after missing his appt to get his methadone that morning. Chief Complaint "Pretty tired this morning". Subjective Patient was seen & assessed interval progress reviewed with nursing. Staff report he attended and participated in groups yesterday, was appropriate in his interactions with staff and peers, but continued to demonstrate flat affect. He had a visit with his fiance, which she said went well. Today, he says he felt very tired in the morning, due to poor sleep overnight, and would like to increase his trazodone to 150 mg. He says that his mood is improved, and he is proud of himself for forcing himself to go to groups and participate even when he doesn't feel like it. He describes his mood as "it's getting more positive. " He really enjoyed a group last evening about different ways to think about and deal with anxiety, and says he feels "ashamed" for refusing groups over the weekend, and upset that he missed out on an opportunity to feel better. He denies suicidal thoughts, but continues to struggle to "stay as positive as possible." [facility] treatment, and expresses frustration that they did not communicate to him what his options were or even when they get back in touch with him. Sleep Information Total Hours of Sleep: 3.50 Meal Information Percent of Breakfast Consumed: 100 Percent of Lunch Consumed: 25 Percent of Dinner Consumed: 100 Mental Status Exam During interview pt is: alert and oriented, cooperative Appearance: appropriately dressed, appropriately groomed (obese, long hair pulled back, agrawal, tattoo on left hand) Eye contact is: fair Motor behavior is: steady gait & station, no abnormal motor movements, psychomotor retardation Speech: normal in rate, rhythm & volume, other Affect: mood congruent, depressed, anxious Mood is: other ("improving") Thought process: goal directed Thought content: reality based without delusions Suicidal thought are: denied Homicidal thoughts are: denied Hallucinations: denies auditory, denies visual Cognition: memory grossly intact, attention grossly intact Intelligence estimated to be: average Insight: impaired Judgement: impaired Impression He submitted a 72 notice after getting into a fight with his girlfriend, but rescinded it today. He has been isolating and refusing groups, but today agrees to go. He is interested in inpt rehab, and [facility] staff met with him today. 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 suicidality Plan (1) Major depressive disorder, recurrent severe without psychotic features 12/09 - Continue Lexapro 10 mg daily - Q 15 min checks for safety - Encourage participation in group and individual counseling - Family meeting done today with fiance - The patient will psychiatric aftercare - Assist the patient to learn and utilize healthy coping strategies. - EKG completed QTC WNL 12/10 - continue lexapro 10mg qday - staff to maintain boundaries and unit rules with gf (appropriate times for phone calls) - add trazodone hs for sleep, will start at trazodone at 100mg hs given past response to trazodone - encourage group participation - seeking inpt substance rehab - referrals placed 12/09 - pt states leaning towards rescinding 72 hour notice 12/11 - maintain meds unchanged 12/12 - Continue escitalopram 10mg, trazodone 100mg qhs, and prazosin 2mg qhs. 12/13 - Increase trazodone to 150 mg daily at bedtime to target sleep. - [facility] about substance abuse treatment options. (2) PTSD (post-traumatic stress disorder) Meds as above. Refer for therapy. (3) Opiate dependence 12/09 - Continue OP dosing of Methadone - Coordinate with [facility] (4) Cannabis use disorder, mild, abuse 12/09 - Recommend abstinence - Will refer for outpatient therapy and psychiatric f/u to address mental illness and substance abuse. (5) Tobacco use disorder 12/09 - Counseled about the detrimental effects of nicotine - Provided with a nicotine patch for cessation (6) Antisocial personality disorder 12/09 - Recommend therapy Discharge / Aftercare Planning Primary Care Physician: Name: Psychiatrist: Name: Linda Atkinson Medication Management Date of Appointment: Feb 14, 2017 Time of Appointment: [id number] Therapist: Name: memo Microbiology Director: Name: Miley Maldonado at [facility] [place] Phone Number: [phone] Visit Code E&M Code: 84025 Risk Factors Assessment Male: Yes : Yes /single/: Yes Higher / Fall in social status: No Access to guns: No Health problems: No Mental Health Diagnoses: Yes Substance use disorders: Yes Previous attempt: Yes Family history of suicide: No Previous psychiatric stay: Yes Hopelessness: Yes Smoker: Yes Protective Factors Assessment Alevism beliefs: No : No Responsible for young children: No Employed: No Stable relationships: Yes Supportive family: Yes Data Vital Signs Last 24 Hrs: Date Time Temp Pulse Resp B/P Pulse Ox O2 Delivery O2 Flow Rate FiO2 12/13/16 06:59 36.5 54 16 128/80 85 121/73 Problem Qualifiers (1) Opiate dependence: Substance use status: with opioid-induced mood disorder Qualified Codes: F11.24 - Opioid dependence with opioid-induced mood disorder
[2016-12-13] MEDS: TRAZODONE HCL 50 MG TAB PO SCH (22:51)
[2016-12-13] MEDS: PRAZOSIN HCL 1 MG CAP PO SCH (22:51)
[2016-12-14 06:38] VITALS: BP_SYST 103; BP_SYST 106; BP_DIAS 73; BP_DIAS 74; PULSE 76; PULSE 90; TEMP 36.3
[2016-12-14] MEDS: NICOTINE 14 MG/24 HR TDSY TD SCH (09:00)
[2016-12-14] MEDS: ESCITALOPRAM OXALATE 10 MG TAB PO SCH (09:11)
[2016-12-14] MEDS: METHADONE ORAL SOLN 2 MG/1ML PO SCH (09:11)
--- NOTE | 2016-12-14 10:11 | Psychiatric Progress Notes ---
Progress Note Date of Service Dec 14, 2016. Interval History 36 yo male admitted 12/08 on a voluntary basis after presenting with depression and suicidality after missing his appt to get his methadone that morning. Chief Complaint "I just can't go". Subjective Patient was seen & assessed interval progress reviewed with treatment team. Patient had previously expressed his willingness for inpatient substance abuse treatment. Today he is tearful and states "I'm sorry if I misled them (Dr. Sanchez and psychologist social) but I can't tell my son that I won't see him for that long." Patient says that he talked to 7 year old son in the phone last night and his son wants him to come home. Patient indicates that he didn't really think we would be able to find an inpatient placement for him and that he wants to do "intensive outpatient" and see a psychiatrist locally. He reports that he has been trying to participate in groups and that his mood is "pretty good." He reports no improvement in his anxiety since her was admitted. He is willing to continue with his current medications. He is having some trouble falling asleep. He denies suicidal ideation. Review of Systems Constitutional: + fatigue Sleep Information Total Hours of Sleep: 4.00 Meal Information Percent of Breakfast Consumed: 100 Percent of Lunch Consumed: 100 Percent of Dinner Consumed: 100 Mental Status Exam During interview pt is: alert and oriented, cooperative Appearance: appropriately dressed, disheveled (and malodorous) Eye contact is: fair Motor behavior is: steady gait & station, no abnormal motor movements, psychomotor retardation Speech: normal in rate, rhythm & volume Affect: depressed, labile, anxious Mood is: other ("improving") Thought process: goal directed Thought content: reality based without delusions Suicidal thought are: denied Homicidal thoughts are: denied Hallucinations: denies auditory, denies visual Cognition: memory grossly intact, attention grossly intact Intelligence estimated to be: average Insight: impaired Judgement: impaired Impression He submitted a 72 notice after getting into a fight with his girlfriend, but rescinded it today. He has been isolating and refusing groups, but today agrees to go. He is interested in inpt rehab, and [facility] staff met with him today. 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 suicidality Plan (1) Major depressive disorder, recurrent severe without psychotic features 12/09 - Continue Lexapro 10 mg daily - Q 15 min checks for safety - Encourage participation in group and individual counseling - Family meeting done today with fiance - The patient will psychiatric aftercare - Assist the patient to learn and utilize healthy coping strategies. - EKG completed QTC WNL 12/10 - continue lexapro 10mg qday - staff to maintain boundaries and unit rules with gf (appropriate times for phone calls) - add trazodone hs for sleep, will start at trazodone at 100mg hs given past response to trazodone - encourage group participation - seeking inpt substance rehab - referrals placed 12/09 - pt states leaning towards rescinding 72 hour notice 12/11 - maintain meds unchanged 12/12 - Continue escitalopram 10mg, trazodone 100mg qhs, and prazosin 2mg qhs. 12/13 - Increase trazodone to 150 mg daily at bedtime to target sleep. - [facility] about [facility] abuse treatment options. 12/14 -Patient will continue same medications. May have vistaril at bedtime. Trazodone was increased yesterday -Patient declining inpatient substance abuse treatment after agreeing to do so. He is now wanting outpatient substance abuse treatment (2) PTSD (post-traumatic stress disorder) Meds as above. Refer for therapy. (3) Opiate dependence 12/09 - Continue OP dosing of Methadone - Coordinate with [facility] (4) Cannabis use disorder, mild, abuse 12/09 - Recommend abstinence - Will refer for outpatient therapy and psychiatric f/u to address mental illness and substance abuse. (5) Tobacco use disorder 12/09 - Counseled about the detrimental effects of nicotine - Provided with a nicotine patch for cessation (6) Antisocial personality disorder 12/09 - Recommend therapy Discharge / Aftercare Planning Primary Care Physician: Name: Psychiatrist: Name: Linda Atkinson Medication Management Date of Appointment: Feb 14, 2017 Time of Appointment: Therapist: Name: memo Production Support Developer: Name: Miley Maldonado at [facility] Phone Number: [phone] Visit Code E&M Code: 73629 Risk Factors Assessment Male: Yes : Yes /single/: Yes Higher / Fall in social status: No Access to guns: No Health problems: No Mental Health Diagnoses: Yes Substance use disorders: Yes Previous attempt: Yes Family history of suicide: No Previous psychiatric stay: Yes Hopelessness: Yes Smoker: Yes Protective Factors Assessment Orthodox beliefs: No : No Responsible for young children: No Employed: No Stable relationships: Yes Supportive family: Yes Data Vital Signs Last 24 Hrs: Date Time Temp Pulse Resp B/P Pulse Ox O2 Delivery O2 Flow Rate FiO2 12/14/16 06:38 36.3 76 16 103/73 90 106/74 Meds Administered Last 24 Hrs: Current Inpatient Medications Medications (Trade) Dose Ordered Sig/Jaime Route Start Time Stop Time Status Last Admin Dose Admin Acetaminophen (Tylenol Tab) 650 mg Q4H PRN PO 12/07/16 19:15 01/06/17 19:14 Al Hydroxide/Mg Hydroxide (Maalox Susp) 30 ml Q4H PRN PO 12/07/16 19:15 01/06/17 19:14 Bismuth Subsalicylate (Kaopectate Liqd) 15 ml DAILY PRN PO 12/07/16 19:15 01/06/17 19:14 Magnesium Hydroxide (Milk Of Magnesia Susp) 30 ml DAILY PRN PO 12/07/16 19:15 01/06/17 19:14 Sodium Chloride ([place] Nasal [place]) PRN PRN NA 12/07/16 19:15 01/06/17 19:14 Hydroxyzine HCl (Vistaril Tab) 50 mg HSZ PRN PO 12/07/16 19:15 01/06/17 19:14 12/09/16 22:54 50 MG Hydroxyzine HCl (Vistaril Tab) 25 mg Q4H PRN PO 12/07/16 19:15 01/06/17 19:14 12/09/16 14:14 25 MG Nicotine (Nicoderm Cq 14MG Patch) 1 patch QAM TD 12/08/16 09:00 01/07/17 08:59 Miscellaneous (Remove Nicoderm Patch) 1 ea QAM N/A 12/08/16 09:00 01/07/17 08:59 Methadone HCl (Methadone HCl) 129 mg DAILY PO 12/08/16 09:00 12/22/16 08:59 12/14/16 09:11 129 MG Prazosin HCl (Prazosin) 2 mg HS PO 12/08/16 22:00 01/07/17 21:59 12/13/16 22:51 2 MG Escitalopram Oxalate (Lexapro Tab) 10 mg QAM PO 12/09/16 09:00 01/08/17 08:59 12/14/16 09:11 10 MG Trazodone HCl (Desyrel Tab) 150 mg HS PO 12/13/16 22:00 01/12/17 21:59 12/13/16 22:51 150 MG Problem Qualifiers (1) Opiate dependence: Substance use status: with opioid-induced mood disorder Qualified Codes: F11.24 - Opioid dependence with opioid-induced mood disorder
[2016-12-14] MEDS: PRAZOSIN HCL 1 MG CAP PO SCH (22:31)
[2016-12-14] MEDS: TRAZODONE HCL 50 MG TAB PO SCH (22:31)
[2016-12-14] MEDS: hydrOXYzine HCL 25 MG TAB PO PRN (23:56)
[2016-12-15] MEDS: hydrOXYzine HCL 25 MG TAB PO PRN (01:19)
[2016-12-15 08:11] VITALS: BP 125/79; PULSE 88; TEMP 36.7
[2016-12-15] MEDS: NICOTINE 14 MG/24 HR TDSY TD SCH (09:00)
[2016-12-15] MEDS: ESCITALOPRAM OXALATE 10 MG TAB PO SCH (09:51)
[2016-12-15] MEDS: METHADONE ORAL SOLN 2 MG/1ML PO SCH (09:52)
--- NOTE | 2016-12-15 13:44 | Psychiatric Progress Notes ---
Progress Note Date of Service Dec 15, 2016. Interval History 36 yo male admitted 12/08 on a voluntary basis after presenting with depression and suicidality after missing his appt to get his methadone that morning. Chief Complaint "I had a rough night". Subjective Patient was seen & assessed interval progress reviewed with nursing. Staff report he had a difficult day, as he was quite tearful and distraught after being told he been accepted to inpatient rehabilitation and then deciding that he no longer wanted to go and wanted to pursue intensive outpatient treatment instead. He gave various reasons for this, including that he was worried about his son who is struggling in school. He was upset after speaking to his son in hearing about the bullying that has been going on, and then had another difficult phone call with his girlfriend, where she again became very upset with him and was demanding another meeting with the manager social services. Today, he states that he feels exhausted as he was very anxious and unable to sleep last night. He was picking at his skin to the point that he had to put a Band-Aid on his arm because it was bleeding. His mood is lower, and although he denies suicidal thoughts currently, he worries that if he leaves the hospital now he might not be safe. He feels helpless that he cannot help his son, and frustrated with the ongoing dramatics with his girlfriend. He has not gone to any groups yet today, stating that he was trying to catch up on sleep this morning, but agrees to go to groups this afternoon. Sleep Information Total Hours of Sleep: 2.75 Meal Information Percent of Breakfast Consumed: 0 Percent of Lunch Consumed: 90 Percent of Dinner Consumed: 90 Mental Status Exam During interview pt is: alert and oriented, cooperative Appearance: appropriately dressed, disheveled Eye contact is: poor (averted gaze) Motor behavior is: no abnormal motor movements, other (picking at his skin nervously) Speech: normal in rate, rhythm & volume Affect: depressed, anxious, constricted Mood is: other ("not that good") Thought process: goal directed Thought content: reality based without delusions Suicidal thought are: denied Homicidal thoughts are: denied Hallucinations: denies auditory, denies visual Cognition: memory grossly intact, attention grossly intact Intelligence estimated to be: average Insight: impaired Judgement: impaired Impression He submitted a 72 notice after getting into a fight with his girlfriend, but rescinded it today. He has been isolating and refusing groups, but today agrees to go. He is interested in inpt rehab, and [facility] staff met with him today. 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 suicidality Plan (1) Major depressive disorder, recurrent severe without psychotic features 12/09 - Continue Lexapro 10 mg daily - Q 15 min checks for safety - Encourage participation in group and individual counseling - Family meeting done today with dianne - The patient will psychiatric aftercare - Assist the patient to learn and utilize healthy coping strategies. - EKG completed QTC WNL 12/10 - continue lexapro 10mg qday - staff to maintain boundaries and unit rules with gf (appropriate times for phone calls) - add trazodone hs for sleep, will start at trazodone at 100mg hs given past response to trazodone - encourage group participation - seeking inpt substance rehab - referrals placed 12/09 - pt states leaning towards rescinding 72 hour notice 12/11 - maintain meds unchanged 12/12 - Continue escitalopram 10mg, trazodone 100mg qhs, and prazosin 2mg qhs. 12/13 - Increase trazodone to 150 mg daily at bedtime to target sleep. - [facility] about substance abuse treatment options. 12/14 -Patient will continue same medications. May have vistaril at bedtime. Trazodone was increased yesterday -Patient declining inpatient substance abuse treatment after agreeing to do so. He is now wanting outpatient substance abuse treatment 12/15 -continue current medications. Referral pending to [facility] for intensive outpatient substance abuse treatment. (2) PTSD (post-traumatic stress disorder) Meds as above. Refer for therapy. (3) Opiate dependence 12/09 - Continue OP dosing of Methadone - Coordinate with [facility] (4) Cannabis use disorder, mild, abuse 12/09 - Recommend abstinence - Will refer for outpatient therapy and psychiatric f/u to address mental illness and substance abuse. (5) Tobacco use disorder 12/09 - Counseled about the detrimental effects of nicotine - Provided with a nicotine patch for cessation (6) Antisocial personality disorder 12/09 - Recommend therapy Discharge / Aftercare Planning Primary Care Physician: Name: Phone Number: [phone] Appointment Notes: as needed Psychiatrist: Name: [facility] Medication Management Date of Appointment: Feb 14, 2017 Time of Appointment: Therapist: Name: [facility] Phone Number: [phone] Date of Appointment: Dec 16, 2016 Time of Appointment: 12:15 Appointment Notes: Intake for IOP and therapy Household Assistant: Name: Miley Maldonado at [facility] (and [facility]) Phone Number: [phone] Appointment Notes: per regular appointments Visit Code E&M Code: 82889 Risk Factors Assessment Male: Yes : Yes /single/: Yes Higher / Fall in social status: No Access to guns: No Health problems: No Mental Health Diagnoses: Yes Substance use disorders: Yes Previous attempt: Yes Family history of suicide: No Previous psychiatric stay: Yes Hopelessness: Yes Smoker: Yes Protective Factors Assessment Baptism beliefs: No : No Responsible for young children: No Employed: No Stable relationships: Yes Supportive family: Yes Data Vital Signs Last 24 Hrs: Date Time Temp Pulse Resp B/P Pulse Ox O2 Delivery O2 Flow Rate FiO2 12/15/16 08:11 36.7 88 16 125/79 Meds Administered Last 24 Hrs: Meds Administered (Past 24Hrs) Medications (Trade) Dose Ordered Sig/Jaime Route Start Time Stop Time Status Last Admin Dose Admin Trazodone HCl (Desyrel Tab) 150 mg HS PO 12/13/16 22:00 01/12/17 21:59 12/14/16 22:31 150 MG Problem Qualifiers (1) Opiate dependence: Substance use status: with opioid-induced mood disorder Qualified Codes: F11.24 - Opioid dependence with opioid-induced mood disorder
[2016-12-15] MEDS: PRAZOSIN HCL 1 MG CAP PO SCH (22:36)
[2016-12-15] MEDS: TRAZODONE HCL 50 MG TAB PO SCH (22:36)
[2016-12-16 07:14] VITALS: BP_SYST 111; BP_SYST 114; BP_DIAS 75; BP_DIAS 76; PULSE 54; PULSE 89; TEMP 36.6
[2016-12-16] MEDS: NICOTINE 14 MG/24 HR TDSY TD SCH (09:00)
[2016-12-16] MEDS: ESCITALOPRAM OXALATE 10 MG TAB PO SCH (09:07)
[2016-12-16] MEDS: METHADONE ORAL SOLN 2 MG/1ML PO SCH (09:07)
[2016-12-16] MEDS ORDERED: DSY50 PO (09:42)
[2016-12-16] MEDS ORDERED: PRAZ2CAP2 PO (09:42)
[2016-12-16] MEDS ORDERED: LXP10 PO (09:42)
--- NOTE | 2016-12-16 10:05 | Discharge Instructions ---
Discharge Information Report Includes Report will include the: Discharge Instructions & Summary Admission Admission Date / Time: Dec 07, 2016 at 18:07 Reason for Admission: Major Depressive Disorder Discharge Discharge Diagnosis / Problem: major depressive disorder, substance use disorder Condition at Discharge: Good Discharge Goals Goal(s): Improve function, Improve disease control Activity Recommendations Activity Limitations: resume your previous activity . Instructions / Follow-Up Instructions / Follow-Up . SPECIAL CARE INSTRUCTIONS: 1. Follow through with your scheduled aftercare appointments. If unable to keep an appointment, please call to reschedule. 2. Take your medication only as prescribed. Medication should not be changed or stopped without the approval of your doctor. In the event of worsening symptoms or concerns about side effects, contact your doctor immediately. 3. Utilize new healthy coping skills, anger management skills, and stress management skills learned during your hospitalization. Journal feelings and process them with a support person. Identify stressors or situations that may result in relapse, deterioration or inappropriate behaviors and develop a plan to deal with those issues. 4. If your coping skills are ineffective and you are in crisis, contact your outpatient providers for direction. If unable to reach your providers, please call the CAN HELP LINE AT or go to the closest Emergency Room. 5. Avoid alcohol and un-prescribed drugs. 6. You have been provided with the Mental Health Advance Directives Pamphlet for your review. AFTERCARE APPOINTMENTS: * Please call your insurance company prior to your scheduled appointment to confirm your aftercare providers are covered. Take your insurance information to your appointments. . Discharge / Aftercare Planning Primary Care Physician: Name: Phone Number: [phone] Appointment Notes: as needed Psychiatrist: Name: Linda [facility] Date of Appointment: Feb 14, 2017 Time of Appointment: Therapist: Name Of Therapist: [facility] Phone Number: [phone] Date of Appointment: Dec 16, 2016 Time of Appointment: 12:15 Appointment Comments: Intake for IOP and therapy Supervisor Data Processing: Name: Miley Maldonado at [facility] (and Westley Pena) Phone Number: [phone] Appointment Notes: per regular appointments . Follow-Up Care Plan for Follow-Up Care: see above, as you declined inpatient rehab when a bed was available you are being discharged to an intensive outpatient program. Current Hospital Diet Patient's current hospital diet: Regular Diet Discharge Diet Recommended Diet: Regular Diet Procedures Procedures Performed: No Pending Studies Pending Studies at Discharge: No Medical Emergencies . Who to Call and When: Medical Emergencies: For questions or emergencies related to your hospital stay, please contact the Inpatient Behavioral Health Unit at [phone]. A valve fitter is on-call 13/03 for the Behavioral Health Unit for emergencies At any time you feel your situation is an emergency, you may also call 911 immediately. . Non-Emergent Contact Non-Emergency issues call your: Primary Care Provider, Psychiatrist, Therapist Call Non-Emergent contact if: you have any medication questions Advance Directives Existing Advance Directive: No Do You Have an Existing Mental: No Existing Living Will: No Existing Power of Grounds Restoration Specialist: No Advance Directives Info Given: To Pt/S.O. Advance Directives Reason: Declines as Mental Health Visit. Discharge Summary Admission HPI Per the Admitting provider: See H&P which is transmitted with this document on discharge. Hospital Course (1) Major depressive disorder, recurrent severe without psychotic features 12/09 - Continue Lexapro 10 mg daily - Q 15 min checks for safety - Encourage participation in group and individual counseling - Family meeting done today with dianne - The patient will psychiatric aftercare - Assist the patient to learn and utilize healthy coping strategies. - EKG completed QTC WNL 12/10 - continue lexapro 10mg qday - staff to maintain boundaries and unit rules with gf (appropriate times for phone calls) - add trazodone hs for sleep, will start at trazodone at 100mg hs given past response to trazodone - encourage group participation - seeking inpt substance rehab - referrals placed 12/09 - pt states leaning towards rescinding 72 hour notice 12/11 - maintain meds unchanged 12/12 - Continue escitalopram 10mg, trazodone 100mg qhs, and prazosin 2mg qhs. 12/13 - Increase trazodone to 150 mg daily at bedtime to target sleep. - [facility] about substance abuse treatment options. 12/14 -Patient will continue same medications. May have vistaril at bedtime. Trazodone was increased yesterday -Patient declining inpatient substance abuse treatment after agreeing to do so. He is now wanting outpatient substance abuse treatment 12/15 -continue current medications. Referral pending to [facility] for intensive outpatient substance abuse treatment. (2) PTSD (post-traumatic stress disorder) Meds as above. Refer for therapy. (3) Opiate dependence 12/09 - Continue OP dosing of Methadone - Coordinate with [facility] 12/16/16 the patient did receive multiple brief interventions >5 min around his substance use. He is in action phase but would not commit to inpatient rehab. He will continue to receive counseling for his dependence as an outpatient through [facility] and [facility]. (4) Cannabis use disorder, mild, abuse 12/09 - Recommend abstinence - Will refer for outpatient therapy and psychiatric f/u to address mental illness and substance abuse. 12/16/16 the patient did receive multiple brief interventions >5 min around his substance use. He is in action phase but would not commit to inpatient rehab. He will continue to receive counseling for his dependence as an outpatient through [facility] and [facility]. (5) Tobacco use disorder 12/09 - Counseled about the detrimental effects of nicotine - Provided with a nicotine patch for cessation 12/16/16 the patient did receive multiple brief interventions >5 min around his substance use. He is in action phase with regards to other substances but not ready to quit nicotine but would not commit to inpatient rehab. He will continue to receive counseling for his dependencies as an outpatient through [facility] and [facility]. (6) Antisocial personality disorder 12/09 - Recommend therapy Risk Factors Assessment Male: Yes : Yes /single/: Yes Higher / Fall in social status: No Access to guns: No Health problems: No Mental Health Diagnoses: Yes Substance use disorders: Yes Previous attempt: Yes Family history of suicide: No Previous psychiatric stay: Yes Hopelessness: Yes Smoker: Yes Protective Factors Assessment Yazidism beliefs: No : No Responsible for young children: No Employed: No Stable relationships: Yes Supportive family: Yes Day of Discharge Assessment Michael was alert and denied suicidal thoughts. He expressed feeling almost back to baseline. He verbalizes safety plan developed with staff and had no med concerns. He did become more anxious after meeting with me in anticipation of having to leave early today to make his intake at [facility]. Laboratory Test 12/07/16 15:25 12/07/16 16:03 Urine Color DK YELLOW Urine Appearance CLEAR Urine pH 5.0 Urine Specific [place] 1.029 Urine Protein NEG Urine Glucose (UA) NEG Urine Ketones TRACE Urine Occult Blood NEG Urine Nitrite NEG Urine Bilirubin NEG Urine Urobilinogen NEG Urine Leukocyte Esterase TRACE Urine WBC (Auto) 1-5 Urine RBC (Auto) 0-4 Urine Hyaline Casts (Auto) 1-5 Urine Epithelial Cells (Auto) 5-10 Urine Bacteria (Auto) NEG Urine Opiates Screen NEG Urine Methadone, Qualitative POS Urine Methadone Metabolites 17850 Urine Methadone Confirm >02007 Urine Barbiturates NEG Urine Phencyclidine (PCP) Level NEG Urine Amphetamines Confirmation 2740 Ur Amphetamine/Methamphetamine POS Urine Methamphetamine Confirmation >00218 Urine MDE-amphetamine (MDEA) negative Ur Methylenedioxyamphetamine (MDA) negative MDMA (Ecstasy) Screen POS Methylenedioxymethamphetamine (MDMA negative Urine Benzodiazepines Screen NEG Urine Cocaine Metabolite NEG Urine Marijuana (THC) NEG White Blood Count 13.15 Red Blood Count 4.86 Hemoglobin 15.5 Hematocrit 44.3 Mean Corpuscular Volume 91.2 Mean Corpuscular Hemoglobin 31.9 Mean Corpuscular Hemoglobin Concent 35.0 Platelet Count 266 Mean Platelet Volume 9.5 Neutrophils (%) (Auto) 56.3 Lymphocytes (%) (Auto) 32.9 Monocytes (%) (Auto) 8.0 Eosinophils (%) (Auto) 1.8 Basophils (%) (Auto) 0.4 Neutrophils # (Auto) 7.41 Lymphocytes # (Auto) 4.32 Monocytes # (Auto) 1.05 Eosinophils # (Auto) 0.24 Basophils # (Auto) 0.05 RDW Standard Deviation 45.5 RDW Coefficient of Variation 13.6 Immature Granulocyte % (Auto) 0.6 Immature Granulocyte # (Auto) 0.08 Sodium Level 141 Potassium Level 3.8 Chloride Level 105 Carbon Dioxide Level 29 Anion Gap 7.0 Blood Urea Nitrogen 15 Creatinine 1.20 Est Creatinine Clear Calc Drug Dose 95.1 Estimated GFR () 90.3 Estimated GFR (Non- 77.9 BUN/Creatinine Ratio 12.3 Random Glucose 115 Calcium Level 9.1 Total Bilirubin 0.5 Aspartate Amino Transferase (AST) 85 Alanine Aminotransferase (ALT) 144 Alkaline Phosphatase 87 Total Protein 8.0 Albumin 3.6 Globulin 4.4 Albumin/Globulin Ratio 0.8 Thyroid Stimulating Hormone (TSH) 3.810 Salicylates Level 2.7 Acetaminophen Level < 2 Ethyl Alcohol mg/dL < 3.0 Hepatitis C Antibody NEG Total Time Total Time Spent (min): Greater than 30 minutes Total Time Included: examination of the patient, discharge planning, medication reconciliation Tobacco Cessation at Discharge Smoking Status: Current Every Day Smoker FDA approved Prescription: declined med & out pt counseling (other than via PCP and substance use counselors, gave number for quit line) Problem Qualifiers (1) Opiate dependence: Substance use status: with opioid-induced mood disorder Qualified Codes: F11.24 - Opioid dependence with opioid-induced mood disorder
--- NOTE | 2016-12-16 12:00 | Psychiatric Progress Notes ---
Progress Note Date of Service Dec 16, 2016. Interval History 36 yo male admitted 12/08 on a voluntary basis after presenting with depression and suicidality after missing his appt to get his methadone that morning. Chief Complaint "I'm pretty much baseline". Subjective Patient was seen & assessed interval progress reviewed with Treatment Team. Patient initially expressed willingness toward discharge with an IOP intake appt at 12:30 pm today. Denied medication concerns or side effects. After meeting with me called his fiance and then expressed SI to the social worker psychiatric. Review of Systems Psych: denies symptoms other than stated above Constitutional: denied Cardiovascular: denied GI: denied Neurologic: denied Sleep Information Total Hours of Sleep: 7.00 Meal Information Percent of Breakfast Consumed: 0 Percent of Lunch Consumed: 90 Percent of Dinner Consumed: 100 Mental Status Exam During interview pt is: alert and oriented, cooperative Appearance: appropriately dressed Eye contact is: fair Motor behavior is: no abnormal motor movements, other (picking at his skin nervously) Speech: normal in rate, rhythm & volume Affect: constricted Mood is: other ("OK") Thought process: goal directed Thought content: reality based without delusions Suicidal thought are: denied Homicidal thoughts are: denied Hallucinations: denies auditory, denies visual Cognition: memory grossly intact, attention grossly intact Intelligence estimated to be: average Insight: impaired Judgement: impaired Impression Major depressive disorder severe without psychotic features recurrent with PTSD and social anxiety and substance dependence on methadone maintenance. suicidality Continued Inpatient Care Patient remains resistant to recommended levels of substance abuse treatment and still expresses SI intermittently. Plan (1) Major depressive disorder, recurrent severe without psychotic features 12/09 - Continue Lexapro 10 mg daily - Q 15 min checks for safety - Encourage participation in group and individual counseling - Family meeting done today with kurtyeni - The patient will psychiatric aftercare - Assist the patient to learn and utilize healthy coping strategies. - EKG completed QTC WNL 12/10 - continue lexapro 10mg qday - staff to maintain boundaries and unit rules with gf (appropriate times for phone calls) - add trazodone hs for sleep, will start at trazodone at 100mg hs given past response to trazodone - encourage group participation - seeking inpt substance rehab - referrals placed 12/09 - pt states leaning towards rescinding 72 hour notice 12/11 - maintain meds unchanged 12/12 - Continue escitalopram 10mg, trazodone 100mg qhs, and prazosin 2mg qhs. 12/13 - Increase trazodone to 150 mg daily at bedtime to target sleep. - Follow-up with [facility] about substance abuse treatment options. 12/14 -Patient will continue same medications. May have vistaril at bedtime. Trazodone was increased yesterday -Patient declining inpatient substance abuse treatment after agreeing to do so. He is now wanting outpatient substance abuse treatment 12/15 -continue current medications. Referral pending to [facility] for intensive outpatient substance abuse treatment. (2) PTSD (post-traumatic stress disorder) Meds as above. Refer for therapy. (3) Opiate dependence 12/09 - Continue OP dosing of Methadone - Coordinate with [facility] 12/16/16 the patient did receive multiple brief interventions >5 min around his substance use. He is in action phase but would not commit to inpatient rehab. He will continue to receive counseling for his dependence as an outpatient through [facility] and [facility]. (4) Cannabis use disorder, mild, abuse 12/09 - Recommend abstinence - Will refer for outpatient therapy and psychiatric f/u to address mental illness and substance abuse. 12/16/16 the patient did receive multiple brief interventions >5 min around his substance use. He is in action phase but would not commit to inpatient rehab. He will continue to receive counseling for his dependence as an outpatient through [facility] and [facility]. (5) Tobacco use disorder 12/09 - Counseled about the detrimental effects of nicotine - Provided with a nicotine patch for cessation 12/16/16 the patient did receive multiple brief interventions >5 min around his substance use. He is in action phase with regards to other substances but not ready to quit nicotine but would not commit to inpatient rehab. He will continue to receive counseling for his dependencies as an outpatient through [facility] and [facility]. (6) Antisocial personality disorder 12/09 - Recommend therapy Discharge / Aftercare Planning Primary Care Physician: Name: Phone Number: [phone] Appointment Notes: as needed Psychiatrist: Name: [facility] Date of Appointment: Feb 14, 2017 Time of Appointment: [phone] Therapist: Name: [facility] Phone Number: [phone] Date of Appointment: Dec 16, 2016 Time of Appointment: 12:15 Appointment Notes: Intake for IOP and therapy Corrosion Prevention Metal Sprayer: Name: Miley Maldonado at [facility] (and Westley Jean) Phone Number: [phone] Appointment Notes: per regular appointments Visit Code E&M Code: 50802 Risk Factors Assessment Male: Yes : Yes /single/: Yes Higher / Fall in social status: No Access to guns: No Health problems: No Mental Health Diagnoses: Yes Substance use disorders: Yes Previous attempt: Yes Family history of suicide: No Previous psychiatric stay: Yes Hopelessness: Yes Smoker: Yes Protective Factors Assessment Catholic beliefs: No : No Responsible for young children: No Employed: No Stable relationships: Yes Supportive family: Yes Data Vital Signs Last 24 Hrs: Date Time Temp Pulse Resp B/P Pulse Ox O2 Delivery O2 Flow Rate FiO2 12/16/16 07:14 36.6 54 18 114/76 89 111/75 Problem Qualifiers (1) Opiate dependence: Substance use status: with opioid-induced mood disorder Qualified Codes: F11.24 - Opioid dependence with opioid-induced mood disorder
--- NOTE | 2016-12-16 13:08 | Psychiatric Progress Notes ---
Psychiatric Progress Note Date of Service Dec 16, 2016. Notes met with patient and his fiance with his permission. Reviewed treatment plan for the day involving ongoing safety planning and group attendance. She expressed concerns about structure following discharge, patient doesn't seem motivated to attend psych rehab but may consider a loss/bereavement support group. Reviewed measures taken to secure rent/utilities for remainder of month. He was able to verbalize a sense of accomplishment if assists his landlord. He was appeared more withdrawn than earlier this am. No intent or plan to self-harm at this time, passive SI. Dr. Sanchez to reassess appropriateness for discharge over weekend.
[2016-12-16] MEDS: TRAZODONE HCL 50 MG TAB PO SCH (22:30)
[2016-12-16] MEDS: PRAZOSIN HCL 1 MG CAP PO SCH (22:30)
[2016-12-17 07:02] VITALS: BP_SYST 120; BP_SYST 141; BP_DIAS 83; PULSE 60; PULSE 94; TEMP 36.6
[2016-12-17] MEDS: NICOTINE 14 MG/24 HR TDSY TD SCH (09:00)
[2016-12-17] MEDS: METHADONE ORAL SOLN 2 MG/1ML PO SCH (09:53)
[2016-12-17] MEDS: ESCITALOPRAM OXALATE 10 MG TAB PO SCH (09:53)
--- NOTE | 2016-12-17 10:37 | Psychiatric Progress Notes ---
Progress Note Date of Service Dec 17, 2016. Interval History 36 yo male admitted 12/08 on a voluntary basis after presenting with depression and suicidality after missing his appt to get his methadone that morning. Chief Complaint "Yesterday was not so good". Subjective Patient was seen & assessed interval progress reviewed with nursing. Staff report he refused some of the morning groups, but went to all of the afternoon and evening groups, and met one on one with staff to process his negative thoughts and suicidality. He continues to pick at his arms. This morning, he slept in, missing the first group. He states he slept poorly overnight, and mood is lower over the last 2 days, feels more overwhelmed, hopeless, and fearful. He continues to have suicidal thoughts which come and go daily, and describes himself as "just a ball of negative thoughts and feelings" he does not feel safe to leave the hospital at this time, and worries that he would try to hurt himself. He has tried different things to cope and distract himself, but is struggling with this as well. He denies any side effects to medications. Sleep Information Total Hours of Sleep: 4.50 Meal Information Percent of Breakfast Consumed: 0 Percent of Lunch Consumed: 25 Percent of Dinner Consumed: 90 Mental Status Exam During interview pt is: alert and oriented, cooperative Appearance: appropriately dressed, disheveled (obese, sitting in bed, multiple tattoos on upper extremities, picking at forearms) Eye contact is: poor (gaze is averted) Motor behavior is: no abnormal motor movements, other (picking at his skin nervously) Speech: normal in rate, rhythm & volume Affect: depressed, anxious, constricted Mood is: other ("not that great") Thought process: goal directed Thought content: cognitive distortions Suicidal thought are: present, Intent: denied Homicidal thoughts are: denied Hallucinations: denies auditory, denies visual Cognition: memory grossly intact, attention grossly intact Intelligence estimated to be: average Insight: impaired Judgement: impaired Impression Major depressive disorder severe without psychotic features recurrent with PTSD and social anxiety and substance dependence on methadone maintenance. suicidality Continued Inpatient Care Patient remains resistant to recommended levels of substance abuse treatment and still expresses SI intermittently. Plan (1) Major depressive disorder, recurrent severe without psychotic features 12/09 - Continue Lexapro 10 mg daily - Q 15 min checks for safety - Encourage participation in group and individual counseling - Family meeting done today with dianne - The patient will psychiatric aftercare - Assist the patient to learn and utilize healthy coping strategies. - EKG completed QTC WNL 12/10 - continue lexapro 10mg qday - staff to maintain boundaries and unit rules with gf (appropriate times for phone calls) - add trazodone hs for sleep, will start at trazodone at 100mg hs given past response to trazodone - encourage group participation - seeking inpt substance rehab - referrals placed 12/09 - pt states leaning towards rescinding 72 hour notice 12/11 - maintain meds unchanged 12/12 - Continue escitalopram 10mg, trazodone 100mg qhs, and prazosin 2mg qhs. 12/13 - Increase trazodone to 150 mg daily at bedtime to target sleep. - [facility] about [facility] abuse treatment options. 12/14 -Patient will continue same medications. May have vistaril at bedtime. Trazodone was increased yesterday -Patient declining inpatient substance abuse treatment after agreeing to do so. He is now wanting outpatient substance abuse treatment 12/15 -continue current medications. Referral pending to [facility] for intensive outpatient substance abuse treatment. 12/17 -increase escitalopram to 20 mg daily for tomorrow. -Follow-up at [facility] 02/14/2017. May need an interim appointment with his PCP for medication management. (2) PTSD (post-traumatic stress disorder) Meds as above. Refer for therapy. (3) Opiate dependence 12/09 - Continue OP dosing of Methadone - Coordinate with [facility] 12/16/16 - the patient did receive multiple brief interventions >5 min around his substance use. He is in action phase but would not commit to inpatient rehab. He will continue to receive counseling for his dependence as an outpatient through [facility] and [facility] 12/17 - intake at [facility] for intensive outpatient substance abuse treatment on 12/26/2016. (4) Cannabis use disorder, mild, abuse 12/09 - Recommend abstinence - Will refer for outpatient therapy and psychiatric f/u to address mental illness and substance abuse. 12/16/16 the patient did receive multiple brief interventions >5 min around his substance use. He is in action phase but would not commit to inpatient rehab. He will continue to receive counseling for his dependence as an outpatient through [facility] and [facility] (5) Tobacco use disorder 12/09 - Counseled about the detrimental effects of nicotine - Provided with a nicotine patch for cessation 12/16/16 the patient did receive multiple brief interventions >5 min around his substance use. He is in action phase with regards to other substances but not ready to quit nicotine but would not commit to inpatient rehab. He will continue to receive counseling for his dependencies as an outpatient through [facility] and [facility] (6) Antisocial personality disorder 12/09 - Recommend therapy Discharge / Aftercare Planning Primary Care Physician: Name: Phone Number: [phone] Appointment Notes: as needed Psychiatrist: Name: Linda Atkinson Medication Management Date of Appointment: Feb 14, 2017 Time of Appointment: Therapist: Name: [facility] through [facility] Phone Number: [phone] Date of Appointment: December 26, 2016 Time of Appointment: 2:00 Appointment Notes: Intake for IOP and therapy Centrifugal Extractor Operator: Name: Miley Maldonado at [facility] (and Westley Pena) Phone Number: [phone] Appointment Notes: per regular appointments Visit Code E&M Code: 60015 Risk Factors Assessment Male: Yes : Yes /single/: Yes Higher / Fall in social status: No Access to guns: No Health problems: No Mental Health Diagnoses: Yes Substance use disorders: Yes Previous attempt: Yes Family history of suicide: No Previous psychiatric stay: Yes Hopelessness: Yes Smoker: Yes Protective Factors Assessment Muslim beliefs: No : No Responsible for young children: No Employed: No Stable relationships: Yes Supportive family: Yes Data Vital Signs Last 24 Hrs: Date Time Temp Pulse Resp B/P Pulse Ox O2 Delivery O2 Flow Rate FiO2 12/17/16 07:02 36.6 60 16 120/83 94 141/83 Problem Qualifiers (1) Opiate dependence: Substance use status: with opioid-induced mood disorder Qualified Codes: F11.24 - Opioid dependence with opioid-induced mood disorder
[2016-12-17] MEDS: PRAZOSIN HCL 1 MG CAP PO SCH (22:51)
[2016-12-17] MEDS: TRAZODONE HCL 50 MG TAB PO SCH (22:51)
[2016-12-18 06:56] VITALS: BP_SYST 122; BP_SYST 123; BP_DIAS 81; PULSE 58; PULSE 86; TEMP 36.6
--- NOTE | 2016-12-18 07:59 | Psychiatric Progress Notes ---
Progress Note Date of Service Dec 18, 2016. Interval History 36 yo male admitted 12/08 on a voluntary basis after presenting with depression and suicidality after missing his appt to get his methadone that morning. Chief Complaint "Okay". Subjective Patient was seen & assessed interval progress reviewed with nursing. Staff report he has been refusing multiple groups and retreating to bed. Today he says he is "a little bit better, trying to keep up the positivity, that I can make it." He continues to dwell on "things in the past that were negative, think that I can't make it," and worries about "things that haven't happened, if my relationship would fall apart, that would be the end for me, I'd give up on everything." He doesn't expect his relationship to end, but still worries about it, and other things he can't control. He is "trying to stay in the now, just stay confident in myself." As his anxiety lessens, his mood improves. He continues to have episodic SI but it is less intense, "just jason drifts through my head." He has a goal to go to all groups and "get what I can from it , use the tools I learn." Sleep Information Total Hours of Sleep: 5.50 Meal Information Percent of Breakfast Consumed: 0 Percent of Lunch Consumed: 80 Percent of Dinner Consumed: 100 Mental Status Exam During interview pt is: alert and oriented, cooperative Appearance: appropriately dressed, disheveled (obese, long hair) Eye contact is: poor (gaze is averted) Motor behavior is: no abnormal motor movements, other (picking at arms) Speech: normal in rate, rhythm & volume Affect: depressed, anxious, constricted Mood is: other ("a little better") Thought process: goal directed Thought content: cognitive distortions (negative thoughts) Suicidal thought are: present (but lessening in intensity), Intent: denied Homicidal thoughts are: denied Hallucinations: denies auditory, denies visual Cognition: memory grossly intact, attention grossly intact Intelligence estimated to be: average Insight: impaired Judgement: impaired Impression Major depressive disorder severe without psychotic features recurrent with PTSD and social anxiety and substance dependence on methadone maintenance. suicidality Continued Inpatient Care Patient remains resistant to recommended levels of substance abuse treatment and still expresses SI intermittently. Plan (1) Major depressive disorder, recurrent severe without psychotic features 12/09 - Continue Lexapro 10 mg daily - Q 15 min checks for safety - Encourage participation in group and individual counseling - Family meeting done today with kurtance - The patient will psychiatric aftercare - Assist the patient to learn and utilize healthy coping strategies. - EKG completed QTC WNL 12/10 - continue lexapro 10mg qday - staff to maintain boundaries and unit rules with gf (appropriate times for phone calls) - add trazodone hs for sleep, will start at trazodone at 100mg hs given past response to trazodone - encourage group participation - seeking inpt substance rehab - referrals placed 12/09 - pt states leaning towards rescinding 72 hour notice 12/11 - maintain meds unchanged 12/12 - Continue escitalopram 10mg, trazodone 100mg qhs, and prazosin 2mg qhs. 12/13 - Increase trazodone to 150 mg daily at bedtime to target sleep. - [facility] about substance abuse treatment options. 12/14 -Patient will continue same medications. May have vistaril at bedtime. Trazodone was increased yesterday -Patient declining inpatient substance abuse treatment after agreeing to do so. He is now wanting outpatient substance abuse treatment 12/15 -continue current medications. Referral pending to [facility] for intensive outpatient substance abuse treatment. 12/17 -increase escitalopram to 20 mg daily for tomorrow. -Follow-up at [facility] 02/14/2017. May need an interim appointment with his PCP for medication management. 12/18 -Patient refusing most groups and spending all day in bed. Will ask staff to lock door during group time to encourage better attendance. (2) PTSD (post-traumatic stress disorder) Meds as above. Refer for therapy. (3) Opiate dependence 12/09 - Continue OP dosing of Methadone - Coordinate with [facility] 12/16/16 - the patient did receive multiple brief interventions >5 min around his substance use. He is in action phase but would not commit to inpatient rehab. He will continue to receive counseling for his dependence as an outpatient through [facility] and [facility]. 12/17 - intake at [facility] for intensive outpatient substance abuse treatment on 12/26/2016. (4) Cannabis use disorder, mild, abuse 12/09 - Recommend abstinence - Will refer for outpatient therapy and psychiatric f/u to address mental illness and substance abuse. 12/16/16 the patient did receive multiple brief interventions >5 min around his substance use. He is in action phase but would not commit to inpatient rehab. He will continue to receive counseling for his dependence as an outpatient through [facility] and [facility]. (5) Tobacco use disorder 12/09 - Counseled about the detrimental effects of nicotine - Provided with a nicotine patch for cessation 12/16/16 the patient did receive multiple brief interventions >5 min around his substance use. He is in action phase with regards to other substances but not ready to quit nicotine but would not commit to inpatient rehab. He will continue to receive counseling for his dependencies as an outpatient through [facility] and [facility]. (6) Antisocial personality disorder 12/09 - Recommend therapy Discharge / Aftercare Planning Primary Care Physician: Name: Phone Number: [phone] Appointment Notes: as needed Psychiatrist: [facility] Date of Appointment: Feb 14, 2017 Time of Appointment: Therapist: Name: [facility] through [facility] [place] Phone Number: [phone] Date of Appointment: December 26, 2016 Time of Appointment: 2:00 Appointment Notes: Intake for IOP and therapy Logistical Engineer: Name: Miley Maldonado at [facility] (and Westley Pena) Phone Number: [phone] Appointment Notes: per regular appointments Visit Code E&M Code: 78730 Risk Factors Assessment Male: Yes : Yes /single/: Yes Higher / Fall in social status: No Access to guns: No Health problems: No Mental Health Diagnoses: Yes Substance use disorders: Yes Previous attempt: Yes Family history of suicide: No Previous psychiatric stay: Yes Hopelessness: Yes Smoker: Yes Protective Factors Assessment Protestant beliefs: No : No Responsible for young children: No Employed: No Stable relationships: Yes Supportive family: Yes Data Vital Signs Last 24 Hrs: Date Time Temp Pulse Resp B/P Pulse Ox O2 Delivery O2 Flow Rate FiO2 12/18/16 06:56 36.6 58 16 122/81 86 123/81 Problem Qualifiers (1) Opiate dependence: Substance use status: with opioid-induced mood disorder Qualified Codes: F11.24 - Opioid dependence with opioid-induced mood disorder
[2016-12-18] MEDS: ESCITALOPRAM OXALATE 20 MG TAB PO SCH (08:56)
[2016-12-18] MEDS: METHADONE ORAL SOLN 2 MG/1ML PO SCH (08:57)
[2016-12-18] MEDS: NICOTINE 14 MG/24 HR TDSY TD SCH (08:57)
[2016-12-18] MEDS: TRAZODONE HCL 50 MG TAB PO SCH (22:06)
[2016-12-18] MEDS: PRAZOSIN HCL 1 MG CAP PO SCH (22:06)
[2016-12-19 06:58] VITALS: BP_SYST 119; BP_SYST 121; BP_DIAS 74; BP_DIAS 81; PULSE 52; PULSE 84; TEMP 36.5
[2016-12-19] MEDS: NICOTINE 14 MG/24 HR TDSY TD SCH (09:00)
[2016-12-19] MEDS: METHADONE ORAL SOLN 2 MG/1ML PO SCH (09:25)
[2016-12-19] MEDS: ESCITALOPRAM OXALATE 20 MG TAB PO SCH (09:25)
--- NOTE | 2016-12-19 09:57 | Psychiatric Progress Notes ---
Progress Note Date of Service December 19, 2016. Interval History 36 yo male admitted 12/08 on a voluntary basis after presenting with depression and suicidality after missing his appt to get his methadone that morning. Chief Complaint "Just worried". Subjective Patient was seen & assessed interval progress reviewed with Treatment Team. Staff report he attended groups and participated yesterday, but continued to express anxiety about discharge, feeling overwhelmed, with dysphoric affect. He isolated in his room in between groups, and was overwhelmed after conversation with his girlfriend about a flat tire on their vehicle. Today, he has again retreated to bed after breakfast, stating that he is very anxious and does not feel safe to leave the hospital. He initially says he doesn't know what he is anxious about, but then states he is worried that he will be able to handle his anxiety, stating he wakes up feeling panicky, and does not feel safe outside the hospital. This morning, he woke up and felt "I was going into a panic attack and shit, I hate them so much." He feels safe in the hospital, but does not feel able to go home today, fearing that he would do something to harm himself. He is able to engage in a discussion of the coping skills she's been working on, and agrees to get up at this time and attend community meeting this morning and to practice his coping skills here. He has not been eating breakfast due to the severity of his anxiety in the mornings, but is eating at least some of lunch and dinner, although appetite is still decreased. Sleep is improved from admission, but still decreased and impaired by anxiety, with 6-1/ 2 hours last night. Sleep Information Total Hours of Sleep: 6.50 Meal Information Percent of Breakfast Consumed: 0 Percent of Lunch Consumed: 80 Percent of Dinner Consumed: 10 Mental Status Exam During interview pt is: alert and oriented, cooperative Appearance: appropriately dressed, disheveled (obese, long hair that is unkempt ) Eye contact is: poor (gaze is averted, does not make direct eye contact, mostly looking down) Motor behavior is: no abnormal motor movements, other (picking at arms nervously) Speech: other (minimal, halting, long positives) Affect: depressed, anxious, constricted Mood is: other (") Thought process: goal directed Thought content: cognitive distortions (negative thoughts, catastrophizing) Suicidal thought are: present (but lessening in intensity), Intent: denied Homicidal thoughts are: denied Hallucinations: denies auditory, denies visual Cognition: memory grossly intact, attention grossly intact Intelligence estimated to be: average Insight: impaired Judgement: impaired Impression Major depressive disorder severe without psychotic features recurrent with PTSD and social anxiety and substance dependence on methadone maintenance. suicidality Continued Inpatient Care Patient remains resistant to recommended levels of substance abuse treatment and still expresses SI intermittently. Plan (1) Major depressive disorder, recurrent severe without psychotic features 12/09 - Continue Lexapro 10 mg daily - Q 15 min checks for safety - Encourage participation in group and individual counseling - Family meeting done today with fiance - The patient will psychiatric aftercare - Assist the patient to learn and utilize healthy coping strategies. - EKG completed QTC WNL 12/10 - continue lexapro 10mg qday - staff to maintain boundaries and unit rules with gf (appropriate times for phone calls) - add trazodone hs for sleep, will start at trazodone at 100mg hs given past response to trazodone - encourage group participation - seeking inpt substance rehab - referrals placed 12/09 - pt states leaning towards rescinding 72 hour notice 12/11 - maintain meds unchanged 12/12 - Continue escitalopram 10mg, trazodone 100mg qhs, and prazosin 2mg qhs. 12/13 - Increase trazodone to 150 mg daily at bedtime to target sleep. - [facility] about substance abuse treatment options. 12/14 -Patient will continue same medications. May have vistaril at bedtime. Trazodone was increased yesterday -Patient declining inpatient substance abuse treatment after agreeing to do so. He is now wanting outpatient substance abuse treatment 12/15 -continue current medications. Referral pending to [facility] for intensive outpatient substance abuse treatment. 12/17 -Increase escitalopram to 20 mg daily for tomorrow. -Follow-up at [facility] not available until 02/14/2017. Will need an interim appointment with his PCP for medication management. 12/18 -Patient refusing most groups and spending all day in bed. Will ask staff to lock door during group time to encourage better attendance. 12/19 -Better group attendance yesterday, but again today refusing group and retreating to bed. Continue to strongly encourage group attendance and participation in order to work on coping skills in preparation for discharge. Patient does not feel safe to leave the hospital today, and due to risk for suicide if discharged prematurely and when voicing inability to keep himself safe outside the hospital, will continue inpatient treatment. -Scheduled follow-up appointment with PCP, Dr. Amin, for medication management while he is waiting to get in to a psychiatrist. (2) PTSD (post-traumatic stress disorder) Meds as above. Refer for therapy. (3) Opiate dependence 12/09 - Continue OP dosing of Methadone - Coordinate with [facility] 12/16/16 - the patient did receive multiple brief interventions >5 min around his substance use. He is in action phase but would not commit to inpatient rehab. He will continue to receive counseling for his dependence as an outpatient through [facility] and [facility]. 12/17 - intake at [facility] for intensive outpatient substance abuse treatment on 12/26/2016. (4) Cannabis use disorder, mild, abuse 12/09 - Recommend abstinence - Will refer for outpatient therapy and psychiatric f/u to address mental illness and substance abuse. 12/16/16 the patient did receive multiple brief interventions >5 min around his substance use. He is in action phase but would not commit to inpatient rehab. He will continue to receive counseling for his dependence as an outpatient through [facility] and [facility]. (5) Tobacco use disorder 12/09 - Counseled about the detrimental effects of nicotine - Provided with a nicotine patch for cessation 12/16/16 the patient did receive multiple brief interventions >5 min around his substance use. He is in action phase with regards to other substances but not ready to quit nicotine but would not commit to inpatient rehab. He will continue to receive counseling for his dependencies as an outpatient through [facility] and [email or web address]. (6) Antisocial personality disorder 12/09 - Recommend therapy Discharge / Aftercare Planning Primary Care Physician: Name: Phone Number: [phone] Appointment Notes: as needed Psychiatrist: Name: Linda Atkinson Medication Management Date of Appointment: Feb 14, 2017 Time of Appointment: Therapist: Name: [facility] Therapy through [email or web address] Phone Number: [phone] Date of Appointment: December 26, 2016 Time of Appointment: 2:00 Appointment Notes: Intake for IOP and therapy Installer Helper: Name: Miley Maldonado at [facility] (and Westley Jean) Phone Number: [phone] Appointment Notes: per regular appointments Visit Code E&M Code: 43448 Risk Factors Assessment Male: Yes : Yes /single/: Yes Higher / Fall in social status: No Access to guns: No Health problems: No Mental Health Diagnoses: Yes Substance use disorders: Yes Previous attempt: Yes Family history of suicide: No Previous psychiatric stay: Yes Hopelessness: Yes Smoker: Yes Protective Factors Assessment Nondenominational beliefs: No : No Responsible for young children: No Employed: No Stable relationships: Yes Supportive family: Yes Data Vital Signs Last 24 Hrs: Date Time Temp Pulse Resp B/P Pulse Ox O2 Delivery O2 Flow Rate FiO2 12/19/16 06:58 36.5 52 16 119/74 84 121/81 Meds Administered Last 24 Hrs: Meds Administered (Past 24Hrs) Medications (Trade) Dose Ordered Sig/Jaime Route Start Time Stop Time Status Last Admin Dose Admin Escitalopram Oxalate (Lexapro Tab) 20 mg QAM PO 12/18/16 09:00 01/17/17 08:59 12/19/16 09:25 20 MG Problem Qualifiers (1) Opiate dependence: Substance use status: with opioid-induced mood disorder Qualified Codes: F11.24 - Opioid dependence with opioid-induced mood disorder
[2016-12-19] MEDS: TRAZODONE HCL 50 MG TAB PO SCH (22:35)
[2016-12-19] MEDS: PRAZOSIN HCL 1 MG CAP PO SCH (22:36)
[2016-12-20 06:59] VITALS: BP_SYST 114; BP_SYST 115; BP_DIAS 74; PULSE 49; PULSE 82; TEMP 36.5
[2016-12-20] MEDS ORDERED: ESCI1TAB10 PO (08:53)
[2016-12-20] MEDS: NICOTINE 14 MG/24 HR TDSY TD SCH (09:00)
--- NOTE | 2016-12-20 09:03 | Discharge Instructions ---
Discharge Information Report Includes Report will include the: Discharge Instructions & Summary Admission Admission Date / Time: Dec 07, 2016 at 18:07 Reason for Admission: Major Depressive Disorder Discharge Discharge Diagnosis / Problem: Depression, substance abuse (opiates, cannabis) , antisocial personality Condition at Discharge: Fair Discharge Goals Goal(s): Improve function, Improve disease control, Learn about illness, Therapeutic intervention Activity Recommendations Activity Limitations: per Instructions/Follow-up section . Instructions / Follow-Up Instructions / Follow-Up . SPECIAL CARE INSTRUCTIONS: 1. Follow through with your scheduled aftercare appointments. If unable to keep an appointment, please call to reschedule. 2. Take your medication only as prescribed. Medication should not be changed or stopped without the approval of your doctor. In the event of worsening symptoms or concerns about side effects, contact your doctor immediately. 3. Utilize new healthy coping skills, anger management skills, and stress management skills learned during your hospitalization. Journal feelings and process them with a support person. Identify stressors or situations that may result in relapse, deterioration or inappropriate behaviors and develop a plan to deal with those issues. 4. If your coping skills are ineffective and you are in crisis, contact your outpatient providers for direction. If unable to reach your providers, please call the CAN HELP LINE AT or go to the closest Emergency Room. 5. You have severe addictions issues and should not drink alcohol, use illicit or recreational drugs, or take medications that are not yours. 6. You have been provided with the Mental Health Advance Directives Pamphlet for your review. AFTERCARE APPOINTMENTS: * Please call your insurance company prior to your scheduled appointment to confirm your aftercare providers are covered. Take your insurance information to your appointments. . Discharge / Aftercare Planning Primary Care Physician: Name: Phone Number: [phone] Appointment Notes: as needed Psychiatrist: Name: Linda Atkinson Medication Management Date of Appointment: Feb 14, 2017 Time of Appointment: Therapist: Name Of Therapist: [facility] through [facility] Phone Number: [phone] Date of Appointment: December 26, 2016 Time of Appointment: 2:00 Appointment Comments: Intake for IOP and therapy Rf Test Engineer: Name: Miley Maldonado at [facility] (and [facility] Pena) Phone Number: [phone] Appointment Notes: per regular appointments . Follow-Up Care Plan for Follow-Up Care: See above. Current Hospital Diet Patient's current hospital diet: Regular Diet Discharge Diet Recommended Diet: Regular Diet Procedures Procedures Performed: No Pending Studies Pending Studies at Discharge: No Medical Emergencies . Who to Call and When: Medical Emergencies: For questions or emergencies related to your hospital stay, please contact the Inpatient Behavioral Health Unit at [phone]. A level vial inspector and tester is on-call 13/03 for the Behavioral Health Unit for emergencies At any time you feel your situation is an emergency, you may also call 911 immediately. . Non-Emergent Contact Non-Emergency issues call your: Primary Care Provider, Psychiatrist, Therapist , Rf Test Engineer Past History Medical & Surgical History: (1) Methadone use (2) Tobacco use disorder Advance Directives Existing Advance Directive: No Do You Have an Existing Mental: No Existing Living Will: No Existing Power of Customer Service Professional: No Advance Directives Info Given: To Pt/S.O. Advance Directives Reason: Declines as Mental Health Visit. Discharge Summary Admission HPI Per the Admitting provider: See H&P which is transmitted with this document on discharge. Admission Exam Per the Admitting provider: Please see admission H&P. Consultations None. Hospital Course (1) Major depressive disorder, recurrent severe without psychotic features 12/09 - Continue Lexapro 10 mg daily - Q 15 min checks for safety - Encourage participation in group and individual counseling - Family meeting done today with fiance - The patient will psychiatric aftercare - Assist the patient to learn and utilize healthy coping strategies. - EKG completed QTC WNL 12/10 - continue lexapro 10mg qday - staff to maintain boundaries and unit rules with gf (appropriate times for phone calls) - add trazodone hs for sleep, will start at trazodone at 100mg hs given past response to trazodone - encourage group participation - seeking inpt substance rehab - referrals placed 12/09 - pt states leaning towards rescinding 72 hour notice 12/11 - maintain meds unchanged 12/12 - Continue escitalopram 10mg, trazodone 100mg qhs, and prazosin 2mg qhs. 12/13 - Increase trazodone to 150 mg daily at bedtime to target sleep. - [facility] about [facility] abuse treatment options. 12/14 -Patient will continue same medications. May have vistaril at bedtime. Trazodone was increased yesterday -Patient declining inpatient substance abuse treatment after agreeing to do so. He is now wanting outpatient substance abuse treatment 12/15 -continue current medications. Referral pending to [facility] for intensive outpatient substance abuse treatment. 12/17 -Increase escitalopram to 20 mg daily for tomorrow. -Follow-up at [facility] not available until 02/14/2017. Will need an interim appointment with his PCP for medication management. 12/18 -Patient refusing most groups and spending all day in bed. Will ask staff to lock door during group time to encourage better attendance. 12/19 -Better group attendance yesterday, but again today refusing group and retreating to bed. Continue to strongly encourage group attendance and participation in order to work on coping skills in preparation for discharge. Patient does not feel safe to leave the hospital today, and due to risk for suicide if discharged prematurely and when voicing inability to keep himself safe outside the hospital, will continue inpatient treatment. -Scheduled follow-up appointment with PCP, Dr. Amin, for medication management while he is waiting to get in to a psychiatrist. (2) PTSD (post-traumatic stress disorder) Meds as above. Refer for therapy. (3) Opiate dependence 12/09 - Continue OP dosing of Methadone - Coordinate with [facility] 12/16/16 - the patient did receive multiple brief interventions >5 min around his substance use. He is in action phase but would not commit to inpatient rehab. He will continue to receive counseling for his dependence as an outpatient through [facility] and [facility]. 12/17 - intake at [facility] for intensive outpatient substance abuse treatment on 12/26/2016. (4) Cannabis use disorder, mild, abuse 12/09 - Recommend abstinence - Will refer for outpatient therapy and psychiatric f/u to address mental illness and substance abuse. 12/16/16 the patient did receive multiple brief interventions >5 min around his substance use. He is in action phase but would not commit to inpatient rehab. He will continue to receive counseling for his dependence as an outpatient through [facility] and [facility]. (5) Tobacco use disorder 12/09 - Counseled about the detrimental effects of nicotine - Provided with a nicotine patch for cessation 12/16/16 - The patient did receive multiple brief interventions >5 min around his substance use. He is in action phase with regards to other substances but not ready to quit nicotine but would not commit to inpatient rehab. He will continue to receive counseling for his dependencies as an outpatient through [facility]. 12/20 - Again counseled about the risks of smoking, and patient would like to try to quit. Provided prescription for a patch, and Quit Line appointment, (6) Antisocial personality disorder 12/09 - Recommend therapy Risk Factors Assessment Male: Yes : Yes /single/: Yes Higher / Fall in social status: No Access to guns: No Health problems: No Mental Health Diagnoses: Yes Substance use disorders: Yes Previous attempt: Yes Family history of suicide: No Previous psychiatric stay: Yes Hopelessness: Yes Smoker: Yes Protective Factors Assessment Anabaptism beliefs: No : No Responsible for young children: No Employed: No Stable relationships: Yes Supportive family: Yes Absence of risk factors above: Yes (risk factors were mitigated by treating mood and anxiety with medication, involving the patient in groups and therapy on the unit, working on healthy coping skills and her discharge safety plan, referring him for outpatient mental health and substance abuse treatment, educating him about the risks of ongoing substance use and the recommendations from abstinence from controlled substances, a family meeting with his fiance who is his primary support, and recommendations to go to inpatient rehabilitation, which she ultimately declined once a bed was secured. He has demonstrated improvement in mood and anxiety symptoms here, has not engaged in self-injurious or aggressive behavior, is eating, sleeping, and performing ADLs independently, and is denying suicidality. He has gained the maximum benefit from inpatient hospitalization, and is no longer at acute risk of harm to himself, so can be managed as an outpatient at this time. He does remain at chronic increased risk for harm to self given his sex, race, history of suicide attempts, mental illness, substance abuse, and personality disorder, that these risk factors are not modifiable by further inpatient hospitalization.) Day of Discharge Assessment Hospital course: On admission, the patient was continued on his home dose of methadone, and an EKG was checked for monitoring of QTC, which was 416. He was started on escitalopram, due to the lower risk of QTC prolongation when compared with citalopram, which she reported a previous good response to. He tolerated it well, and the dose was increased to 20 mg daily to target mood and anxiety. Clonidine was discontinued, and he was started on prazosin for panic and night terrors, which was previously effective. He was later also started on trazodone for sleep, and it was increased to 150 mg daily at bedtime. He was referred for outpatient psychiatric follow-up, but unfortunately an intake could not be secured until 02/14/2017, so he was referred to his PCP for an interim appointment. He had a meeting with his fiance on 12/09/2016, which appeared to go well. She shared a long history of the frustrations the patient has had with his psychiatric treatment, feeling that he would not be so depressed if he had the right medications and the right providers. She stated he was not medication compliant, but that this was due to circumstances beyond his control. She also stated there had been a great deal of stress at home since she got fired 2 days ago, has many responsibilities with her children, and her mother as being released from intermediate. The patient was stressed about money, stating he would like to eventually get a job so he can support his family. He attributed many of his struggles to poor sleep, which is negatively affected by nightmares and frequent awakenings. Multiple referrals were made for outpatient services, as well as a referral to the [facility] unit for inpatient rehabilitation, as he stated that he would ideally like to go to inpatient rehabilitation and then a [facility]. He was not initially forthcoming with the team that he had been working with Rossi spear at the [facility] service unit on getting into rehabilitation, but his girlfriend disclosed this. She confirmed that he does not have access to guns. Later that day, his girlfriend called and the patient was observed yelling and swearing loudly while on the phone. He then told staff he wanted to leave [place], as he was worried that she was going to throw away all of his things at home. He submitted a 72 hour notice requesting to withdraw from treatment. He continued to have multiple difficult phone conversations with his girlfriend, who apparently got into his email and was accusing him of things he had said or done in the past. She visited regularly, and at times the visits went well, but other times they fought. His girlfriend contacted the social problems specialist complaining that she can't trust the patient, as she found some contacts and emails he sent to women and thinks he is cheating on her. The patient declined another meeting with his girlfriend and the social problems specialist, but continued to talk to her daily, and ultimately stated they had worked things out and he would return to live with her. At times, he retreated to bed and refused all groups, so an order was written to lock his door during group times, and his attendance and participation improved. He met with a employee relations representative from the [facility] and referrals were made for inpatient rehabilitation, and he was accepted on 12/14/2016, but then refused to go, stating that he could not be away from his son for that long. His discharge was postponed multiple times , as he felt anxious and unsafe to leave the hospital. Day of discharge assessment: Patient states that his mood has improved since admission, but is still lower than he would like it to be. He denies suicidal thoughts, but continues to feel very anxious about discharge, worrying about all the negative things that could happen, although he is trying to employ CBT techniques as he knows that he is focusing on the worst case scenario. Staff report that he had a good visit with his girlfriend last night, and was out of his room with brighter affect following the visit, playing cards with his peers. He has been taking medications as prescribed and denies any side effects. Sleep has improved, with decreased nightmares, and anxiety is improved. He is able to review the coping skills he has worked on here, as well as his discharge safety plan in detail. He states a willingness to follow up with outpatient providers, and states that one of his goals is to attend all of his appointments, and not to procrastinate. Although he admits he is anxious about returning home and what might happen, he feels ready to try, and agrees to contact his disease case manager, call the crisis line, or return to the emergency room if he feels unsafe. Obese white male appearing stated age. Casually dressed with limited grooming, long hair is disheveled. Calm and cooperative. Seated in NAD, with poor eye contact and no abnormal movements. Speech is normal rate, volume, and tone. Mood is "okay, a little nervous," and affect is stable and congruent. Thoughts are linear, logical and goal directed. The patient denied suicidal and homicidal ideation and was able to review his coping skills and safety plan. No paranoia, delusions, or hallucinations, and did not appear to be responding to internal stimuli. Cognition was grossly intact. Alert and oriented to person, place and time. Intelligence is consistent with level of education. Insight and and judgment are fair. Laboratory Test 12/07/16 15:25 12/07/16 16:03 Urine Color DK YELLOW Urine Appearance CLEAR Urine pH 5.0 Urine Specific [place] 1.029 Urine Protein NEG Urine Glucose (UA) NEG Urine Ketones TRACE Urine Occult Blood NEG Urine Nitrite NEG Urine Bilirubin NEG Urine Urobilinogen NEG Urine Leukocyte Esterase TRACE Urine WBC (Auto) 1-5 Urine RBC (Auto) 0-4 Urine Hyaline Casts (Auto) 1-5 Urine Epithelial Cells (Auto) 5-10 Urine Bacteria (Auto) NEG Urine Opiates Screen NEG Urine Methadone, Qualitative POS Urine Methadone Metabolites 14637 Urine Methadone Confirm >46950 Urine Barbiturates NEG Urine Phencyclidine (PCP) Level NEG Urine Amphetamines Confirmation 2740 Ur Amphetamine/Methamphetamine POS Urine Methamphetamine Confirmation >10047 Urine MDE-amphetamine (MDEA) negative Ur Methylenedioxyamphetamine (MDA) negative MDMA (Ecstasy) Screen POS Methylenedioxymethamphetamine (MDMA negative Urine Benzodiazepines Screen NEG Urine Cocaine Metabolite NEG Urine Marijuana (THC) NEG White Blood Count 13.15 Red Blood Count 4.86 Hemoglobin 15.5 Hematocrit 44.3 Mean Corpuscular Volume 91.2 Mean Corpuscular Hemoglobin 31.9 Mean Corpuscular Hemoglobin Concent 35.0 Platelet Count 266 Mean Platelet Volume 9.5 Neutrophils (%) (Auto) 56.3 Lymphocytes (%) (Auto) 32.9 Monocytes (%) (Auto) 8.0 Eosinophils (%) (Auto) 1.8 Basophils (%) (Auto) 0.4 Neutrophils # (Auto) 7.41 Lymphocytes # (Auto) 4.32 Monocytes # (Auto) 1.05 Eosinophils # (Auto) 0.24 Basophils # (Auto) 0.05 RDW Standard Deviation 45.5 RDW Coefficient of Variation 13.6 Immature Granulocyte % (Auto) 0.6 Immature Granulocyte # (Auto) 0.08 Sodium Level 141 Potassium Level 3.8 Chloride Level 105 Carbon Dioxide Level 29 Anion Gap 7.0 Blood Urea Nitrogen 15 Creatinine 1.20 Est Creatinine Clear Calc Drug Dose 95.1 Estimated GFR () 90.3 Estimated GFR (Non- 77.9 BUN/Creatinine Ratio 12.3 Random Glucose 115 Calcium Level 9.1 Total Bilirubin 0.5 Aspartate Amino Transferase (AST) 85 Alanine Aminotransferase (ALT) 144 Alkaline Phosphatase 87 Total Protein 8.0 Albumin 3.6 Globulin 4.4 Albumin/Globulin Ratio 0.8 Thyroid Stimulating Hormone (TSH) 3.810 Salicylates Level 2.7 Acetaminophen Level < 2 Ethyl Alcohol mg/dL < 3.0 Hepatitis C Antibody NEG Total Time Total Time Spent (min): Greater than 30 minutes Total Time Included: examination of the patient, discharge planning, medication reconciliation Tobacco Cessation at Discharge Smoking Status: Current Every Day Smoker FDA approved Prescription: nicotine replacement product Problem Qualifiers (1) Opiate dependence: Substance use status: with opioid-induced mood disorder Qualified Codes: F11.24 - Opioid dependence with opioid-induced mood disorder
[2016-12-20] MEDS ORDERED: NICO14DI5 TD (09:04)
[2016-12-20] MEDS: METHADONE ORAL SOLN 2 MG/1ML PO SCH (09:25)
[2016-12-20] MEDS: ESCITALOPRAM OXALATE 20 MG TAB PO SCH (09:25)
[2016-12-20 20:58] VITALS: BP 119/78; PULSE 60
[2016-12-20] MEDS: TRAZODONE HCL 50 MG TAB PO SCH (21:44)
[2016-12-20] MEDS: PRAZOSIN HCL 1 MG CAP PO SCH (21:44)
[2016-12-21 06:46] VITALS: BP_SYST 118; BP_SYST 127; BP_DIAS 84; PULSE 61; PULSE 72; TEMP 36.7
[2016-12-21] MEDS: NICOTINE 14 MG/24 HR TDSY TD SCH (09:00)
[2016-12-21] MEDS: ESCITALOPRAM OXALATE 20 MG TAB PO SCH (10:43)
[2016-12-21] MEDS: METHADONE ORAL SOLN 2 MG/1ML PO SCH (10:43)
--- NOTE | 2016-12-21 11:45 | Psychiatric Progress Notes ---
Progress Note Date of Service December 21, 2016. Interval History 36 yo male admitted 12/08 on a voluntary basis after presenting with depression and suicidality after missing his appt to get his methadone that morning. Chief Complaint "Not good". Subjective Patient was seen & assessed interval progress reviewed with Treatment Team. He was scheduled for discharge yesterday but when he called his girlfriend to pick him up, "she started freaking out, yelling, accusing me of shit, chekhadra' on her , my [facility] went to [facility] He says he cannot return to live with her, and endorsed feeling hopeless and suicidal. "I'm done trying to live my life," says he's "very much" suicidal, "I don't see a point in trying to live anymore." He endorses multiple plans to end his life, including OD, carbon monoxide, "make the employment coordinator shoot me, whatever I can do." He denies plan or intent to harm himself here in the hospital. He agrees to go to groups and participate, but has not yet gotten out of bed today. He says he has "nobody to call" as far as other places he could stay. He was informed of the behavioral plan, including daily self care, showering, making phone calls as needed to work on housing options, and attending and participating. Sleep Information Total Hours of Sleep: 6.25 Meal Information Percent of Breakfast Consumed: 0 Percent of Lunch Consumed: 100 Percent of Dinner Consumed: 0 Mental Status Exam During interview pt is: alert and oriented, other (only partially cooperative, had to be retrieved from bed as he has not gotten up all day) Appearance: appropriately dressed (clothing rumpled and disheveled), disheveled (obese, long hair that is unkempt and visibly dirty, malodorous) Eye contact is: poor (refuses to make eye contact, hold hands over her face) Motor behavior is: no abnormal motor movements, other (picking at arms nervously) Speech: other (minimal, halting, long pauses) Affect: depressed, tearful, constricted Mood is: other ("terrible") Thought process: goal directed Thought content: cognitive distortions (negative thoughts, catastrophizing) Suicidal thought are: present (but lessening in intensity), Plan: present, Intent: denied (in the hospital, but cannot contract for safety outside of the hospital) Homicidal thoughts are: denied Hallucinations: denies auditory, denies visual Cognition: memory grossly intact, attention grossly intact, language grossly intact Intelligence estimated to be: average Insight: impaired Judgement: impaired Please see admission H&P. 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 suicidality Continued Inpatient Care Patient remains resistant to recommended levels of substance abuse treatment and still expresses SI intermittently. Plan (1) Major depressive disorder, recurrent severe without psychotic features 12/09 - Continue Lexapro 10 mg daily - Q 15 min checks for safety - Encourage participation in group and individual counseling - Family meeting done today with fiance - The patient will psychiatric aftercare - Assist the patient to learn and utilize healthy coping strategies. - EKG completed QTC WNL 12/10 - continue lexapro 10mg qday - staff to maintain boundaries and unit rules with gf (appropriate times for phone calls) - add trazodone hs for sleep, will start at trazodone at 100mg hs given past response to trazodone - encourage group participation - seeking inpt substance rehab - referrals placed 12/09 - pt states leaning towards rescinding 72 hour notice 12/11 - maintain meds unchanged 12/12 - Continue escitalopram 10mg, trazodone 100mg qhs, and prazosin 2mg qhs. 12/13 - Increase trazodone to 150 mg daily at bedtime to target sleep. - [facility] treatment options. 12/14 -Patient will continue same medications. May have vistaril at bedtime. Trazodone was increased yesterday -Patient declining inpatient substance abuse treatment after agreeing to do so. He is now wanting outpatient substance abuse treatment 12/15 -continue current medications. Referral pending to [facility] for intensive outpatient substance abuse treatment. 12/17 -Increase escitalopram to 20 mg daily for tomorrow. -Follow-up at [facility] not available until 02/14/2017. Will need an interim appointment with his PCP for medication management. 12/18 -Patient refusing most groups and spending all day in bed. Will ask staff to lock door during group time to encourage better attendance. 12/19 -Better group attendance yesterday, but again today refusing group and retreating to bed. Continue to strongly encourage group attendance and participation in order to work on coping skills in preparation for discharge. Patient does not feel safe to leave the hospital today, and due to risk for suicide if discharged prematurely and when voicing inability to keep himself safe outside the hospital, will continue inpatient treatment. -Scheduled follow-up appointment with PCP, Dr. Amin, for medication management while he is waiting to get in to a psychiatrist. 12/20 -Discharge cancelled as patient had fight with GF and expressed SI with multiple plans. 12/21 -Pt with worsening mood, suicidality with multiple plans, and inability to contract for safety outside of the hospital. Staff to lock his door during group times due to poor attendance. He was advised that he will be on a behavioral plan, which includes showering daily and attending to his ADLs, getting out of bed for meals in groups and participating in treatment, including making phone calls and working on aftercare and housing issues. (2) PTSD (post-traumatic stress disorder) Meds as above. Refer for therapy. (3) Opiate dependence 12/09 - Continue OP dosing of Methadone - Coordinate with [facility] 12/16/16 - the patient did receive multiple brief interventions >5 min around his substance use. He is in action phase but would not commit to inpatient rehab. He will continue to receive counseling for his dependence as an outpatient through [facility] and [facility]. 12/17 - intake at [facility] for intensive outpatient substance abuse treatment on 12/26/2016. (4) Cannabis use disorder, mild, abuse 12/09 - Recommend abstinence - Will refer for outpatient therapy and psychiatric f/u to address mental illness and substance abuse. 12/16/16 the patient did receive multiple brief interventions >5 min around his substance use. He is in action phase but would not commit to inpatient rehab. He will continue to receive counseling for his dependence as an outpatient through [facility] and [facility]. (5) Tobacco use disorder 12/09 - Counseled about the detrimental effects of nicotine - Provided with a nicotine patch for cessation 12/16/16 - The patient did receive multiple brief interventions >5 min around his substance use. He is in action phase with regards to other substances but not ready to quit nicotine but would not commit to inpatient rehab. He will continue to receive counseling for his dependencies as an outpatient through [facility] and [facility]. 12/20 - Again counseled about the risks of smoking, and patient would like to try to quit. Provided prescription for a patch, and Quit Line appointment, (6) Antisocial personality disorder 12/09 - Recommend therapy Discharge / Aftercare Planning Primary Care Physician: Name: Dr.Burke Street Phone Number: [phone] Date of Appointment: December 27, 2016 Time of Appointment: 10:25 Psychiatrist: Name: Linda Atkinson Medication Management Date of Appointment: Feb 14, 2017 Time of Appointment: Therapist: Name: [facility] Phone Number: [phone] Date of Appointment: December 26, 2016 Time of Appointment: 2:00 Appointment Notes: Intake for IOP and therapy Wire Machine Operator: Name: Miley Maldonado at [facility] (and [facility]) Phone Number: [phone] Appointment Notes: per regular appointments Home Health Services: Home Health Services: none Visit Code E&M Code: 72041 Risk Factors Assessment Male: Yes : Yes /single/: Yes Higher / Fall in social status: No Access to guns: No Health problems: No Mental Health Diagnoses: Yes Substance use disorders: Yes Previous attempt: Yes Family history of suicide: No Previous psychiatric stay: Yes Hopelessness: Yes Smoker: Yes Protective Factors Assessment Mandaeism beliefs: No : No Responsible for young children: No Employed: No Stable relationships: Yes Supportive family: Yes Absence of risk factors above: Yes (risk factors were mitigated by treating mood and anxiety with medication, involving the patient in groups and therapy on the unit, working on healthy coping skills and her discharge safety plan, referring him for outpatient mental health and substance abuse treatment, educating him about the risks of ongoing substance use and the recommendations from abstinence from controlled substances, a family meeting with his fiance who is his primary support, and recommendations to go to inpatient rehabilitation, which she ultimately declined once a bed was secured. He has demonstrated improvement in mood and anxiety symptoms here, has not engaged in self-injurious or aggressive behavior, is eating, sleeping, and performing ADLs independently, and is denying suicidality. He has gained the maximum benefit from inpatient hospitalization, and is no longer at acute risk of harm to himself, so can be managed as an outpatient at this time. He does remain at chronic increased risk for harm to self given his sex, race, history of suicide attempts, mental illness, substance abuse, and personality disorder, that these risk factors are not modifiable by further inpatient hospitalization.) Data Vital Signs Last 24 Hrs: Date Time Temp Pulse Resp B/P Pulse Ox O2 Delivery O2 Flow Rate FiO2 12/21/16 06:46 36.7 61 18 118/84 72 127/84 12/20/16 20:58 60 119/78 Problem Qualifiers (1) Opiate dependence: Substance use status: with opioid-induced mood disorder Qualified Codes: F11.24 - Opioid dependence with opioid-induced mood disorder
--- NOTE | 2016-12-21 11:49 | Psychiatric Progress Notes ---
Psychiatric Progress Note Date of Service December 20, 2016. Notes Late entry for 12/20/2016. Patient had been scheduled for discharge, that I was contacted by staff after he had an angry phone call with his girlfriend, was yelling and swearing at her, and then sobbing in his room. He stated his girlfriend would not allow him to return home and had just broken up with him. He said he had no place to live, no friends or family, and nowhere to go. He repeatedly stated he was "done with life," "I have nothing to live for," and " go ahead, kicked me the fact out of here, 'cause I'll just end it all!" His girlfriend then called the unit and spoke to the social worker palliative care, stating that she deserves better than with the patient has to offer in doesn't trust him. Multiple staff attempted to process this with him, and he remained focused on the negative things in his life and hopelessness. He attended self-awareness group in the evening, but left early, and refused most of his meal. He continued to tell evening staff that there was no point in living and was focused on being homeless without supports or a job. He reported multiple plans for suicide, including on overdosing on drugs he bought, carbon monoxide poisoning, or by animal cop. He talked about all the bad decisions he made, especially spending all of the money from his mother's estate on heroin. He rated his mood as 0 out of 10.
[2016-12-21] MEDS: TRAZODONE HCL 50 MG TAB PO SCH (22:04)
[2016-12-21] MEDS: PRAZOSIN HCL 1 MG CAP PO SCH (22:05)
[2016-12-22 06:53] VITALS: BP_SYST 128; BP_SYST 135; BP_DIAS 77; BP_DIAS 80; PULSE 66; PULSE 72; TEMP 36.6
[2016-12-22] MEDS: NICOTINE 14 MG/24 HR TDSY TD SCH (09:00)
[2016-12-22] MEDS: METHADONE ORAL SOLN 2 MG/1ML PO SCH (09:28)
[2016-12-22] MEDS: ESCITALOPRAM OXALATE 20 MG TAB PO SCH (09:28)
--- NOTE | 2016-12-22 11:12 | Psychiatric Progress Notes ---
Progress Note Date of Service December 22, 2016. Interval History 36 yo male admitted 12/08 on a voluntary basis after presenting with depression and suicidality after missing his appt to get his methadone that morning. Chief Complaint "Not so great". Subjective Patient was seen & assessed interval progress reviewed with Treatment Team. The patient continues to struggle with his circumstances. He continues with intermittant SI, feeling that he has no resources to move forward. We brainstorm ideas and he says that his father may be able to offer some small financial assistance and is willing to call him. He also wants to call his ex GF to see if he can live there temporarily until he can get on his feet. He was also encouraged to call [facility]. 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 He is no having SI today, saying "I know I need to stop thinking like that.". He feels tired because of poor sleep last night, never feeling that he got into a deep sleep. He is trying to force himself to get to groups today. Review of Systems Constitutional: + fatigue ENT: No dental problems, No hearing loss, No nasal symptoms, No problem reported, No sore throat, No tinnitus, No trouble swallowing, No unusual epistaxis Respiratory: No cough, No dyspnea at rest, No dyspnea on exertion, No hemoptysis, No problem reported, No shortness of breath, No sputum, No wheezing Cardiovascular: No PND, No chest pain, No claudication, No edema, No orthopnea , No palpitations, No problem reported Abdomen: No GI bleeding, No constipation, No diarrhea, No nausea, No pain, No problem reported, No vomiting Musculoskeletal: No calf pain, No joint pain, No muscle pain, No problem reported, No swelling Neurologic: No balance problems, No memory loss, No numbness/tingling, No paralysis, No problem reported, No vertigo, No weakness Psychiatric: + depression symptoms Integumentary: No bleeding, No color change, No itch, No new/changing skin lesions, No problem reported, No rash Sleep Information Total Hours of Sleep: 6.50 Meal Information Percent of Breakfast Consumed: 100 Percent of Lunch Consumed: 100 Percent of Dinner Consumed: 100 Mental Status Exam During interview pt is: alert and oriented, other (only partially cooperative, had to be retrieved from bed as he has not gotten up all day) Appearance: appropriately dressed (clothing rumpled and disheveled), disheveled (obese, long hair that is unkempt and visibly dirty, malodorous) Eye contact is: fair Motor behavior is: no abnormal motor movements, other (picking at arms nervously) Speech: other (minimal, halting, long pauses) Affect: depressed, constricted Mood is: depressed Thought process: goal directed Thought content: cognitive distortions (negative thoughts, catastrophizing), reality based without delusions Suicidal thought are: present (but lessening in intensity), Plan: present, Intent: denied (in the hospital, but cannot contract for safety outside of the hospital) Homicidal thoughts are: denied Hallucinations: denies auditory, denies visual Cognition: memory grossly intact, attention grossly intact, language grossly intact Intelligence estimated to be: average Insight: impaired Judgement: impaired Please see admission H&P. Impression He remains depressed, but today showing some willingness to reach out to get his needs met. Has a list of 3 calls that I have asked him to make today. We will be having him sign a behavioral contract involving his attendance to programming, participation in aftercare planning, and improved self care as he is malodorous and disheveled at all times. Continued Inpatient Care Patient remains resistant to recommended levels of substance abuse treatment and still expresses SI intermittently. Plan (1) Major depressive disorder, recurrent severe without psychotic features 12/09 - Continue Lexapro 10 mg daily - Q 15 min checks for safety - Encourage participation in group and individual counseling - Family meeting done today with fiance - The patient will psychiatric aftercare - Assist the patient to learn and utilize healthy coping strategies. - EKG completed QTC WNL 12/10 - continue lexapro 10mg qday - staff to maintain boundaries and unit rules with gf (appropriate times for phone calls) - add trazodone hs for sleep, will start at trazodone at 100mg hs given past response to trazodone - encourage group participation - seeking inpt substance rehab - referrals placed 12/09 - pt states leaning towards rescinding 72 hour notice 12/11 - maintain meds unchanged 12/12 - Continue escitalopram 10mg, trazodone 100mg qhs, and prazosin 2mg qhs. 12/13 - Increase trazodone to 150 mg daily at bedtime to target sleep. - [facility] treatment options. 12/14 -Patient will continue same medications. May have vistaril at bedtime. Trazodone was increased yesterday -Patient declining inpatient substance abuse treatment after agreeing to do so. He is now wanting outpatient substance abuse treatment 12/15 -continue current medications. Referral pending to [facility] for intensive outpatient substance abuse treatment. 12/17 -Increase escitalopram to 20 mg daily for tomorrow. -Follow-up at [facility] not available until 02/14/2017. Will need an interim appointment with his PCP for medication management. 12/18 -Patient refusing most groups and spending all day in bed. Will ask staff to lock door during group time to encourage better attendance. 12/19 -Better group attendance yesterday, but again today refusing group and retreating to bed. Continue to strongly encourage group attendance and participation in order to work on coping skills in preparation for discharge. Patient does not feel safe to leave the hospital today, and due to risk for suicide if discharged prematurely and when voicing inability to keep himself safe outside the hospital, will continue inpatient treatment. -Scheduled follow-up appointment with PCP, Dr. Amin, for medication management while he is waiting to get in to a psychiatrist. 12/20 -Discharge cancelled as patient had fight with GF and expressed SI with multiple plans. 12/21 -Pt with worsening mood, suicidality with multiple plans, and inability to contract for safety outside of the hospital. Staff to lock his door during group times due to poor attendance. He was advised that he will be on a behavioral plan, which includes showering daily and attending to his ADLs, getting out of bed for meals in groups and participating in treatment, including making phone calls and working on aftercare and housing issues. 12/22 - Behavioral contract - Patient has a list of 3 calls to make today to father, [facility] and ex GF (2) PTSD (post-traumatic stress disorder) Meds as above. Refer for therapy. (3) Opiate dependence 12/09 - Continue OP dosing of Methadone - Coordinate with [facility] 12/16/16 - the patient did receive multiple brief interventions >5 min around his substance use. He is in action phase but would not commit to inpatient rehab. He will continue to receive counseling for his dependence as an outpatient through [facility] and [facility]. 12/17 - intake at [facility] for intensive outpatient substance abuse treatment on 12/26/2016. (4) Cannabis use disorder, mild, abuse 12/09 - Recommend abstinence - Will refer for outpatient therapy and psychiatric f/u to address mental illness and substance abuse. 12/16/16 the patient did receive multiple brief interventions >5 min around his substance use. He is in action phase but would not commit to inpatient rehab. He will continue to receive counseling for his dependence as an outpatient through [facility] and [facility]. (5) Tobacco use disorder 12/09 - Counseled about the detrimental effects of nicotine - Provided with a nicotine patch for cessation 12/16/16 - The patient did receive multiple brief interventions >5 min around his substance use. He is in action phase with regards to other substances but not ready to quit nicotine but would not commit to inpatient rehab. He will continue to receive counseling for his dependencies as an outpatient through [facility] and [facility]. 12/20 - Again counseled about the risks of smoking, and patient would like to try to quit. Provided prescription for a patch, and Quit Line appointment, (6) Antisocial personality disorder 12/09 - Recommend therapy Discharge / Aftercare Planning Primary Care Physician: Name: Dr.Burke Street Phone Number: [phone] Date of Appointment: December 27, 2016 Time of Appointment: 10:25 Psychiatrist: Name: Linda Atkinson Medication Management Date of Appointment: Feb 14, 2017 Time of Appointment: 2016 Therapist: Name: [facility] and Therapy through [facility] Phone Number: [phone] Date of Appointment: December 26, 2016 Time of Appointment: 2:00 Appointment Notes: Intake for IOP and therapy Filler Room Attendant: Name: Miley Maldonado at [facility] (and Westley Pena) Phone Number: [phone] Appointment Notes: per regular appointments Home Health Services: Home Health Services: none Visit Code E&M Code: 96629 Risk Factors Assessment Male: Yes : Yes /single/: Yes Higher / Fall in social status: No Access to guns: No Health problems: No Mental Health Diagnoses: Yes Substance use disorders: Yes Previous attempt: Yes Family history of suicide: No Previous psychiatric stay: Yes Hopelessness: Yes Smoker: Yes Protective Factors Assessment Oriental [employer] beliefs: No : No Responsible for young children: No Employed: No Stable relationships: Yes Supportive family: Yes Absence of risk factors above: Yes (risk factors were mitigated by treating mood and anxiety with medication, involving the patient in groups and therapy on the unit, working on healthy coping skills and her discharge safety plan, referring him for outpatient mental health and substance abuse treatment, educating him about the risks of ongoing substance use and the recommendations from abstinence from controlled substances, a family meeting with his fiance who is his primary support, and recommendations to go to inpatient rehabilitation, which she ultimately declined once a bed was secured. He has demonstrated improvement in mood and anxiety symptoms here, has not engaged in self-injurious or aggressive behavior, is eating, sleeping, and performing ADLs independently, and is denying suicidality. He has gained the maximum benefit from inpatient hospitalization, and is no longer at acute risk of harm to himself, so can be managed as an outpatient at this time. He does remain at chronic increased risk for harm to self given his sex, race, history of suicide attempts, mental illness, substance abuse, and personality disorder, that these risk factors are not modifiable by further inpatient hospitalization.) Data Vital Signs Last 24 Hrs: Date Time Temp Pulse Resp B/P Pulse Ox O2 Delivery O2 Flow Rate FiO2 12/22/16 06:53 36.6 66 16 128/77 72 135/80 Meds Administered Last 24 Hrs: Current Inpatient Medications Medications (Trade) Dose Ordered Sig/Jaime Route Start Time Stop Time Status Last Admin Dose Admin Acetaminophen (Tylenol Tab) 650 mg Q4H PRN PO 12/07/16 19:15 01/06/17 19:14 Al Hydroxide/Mg Hydroxide (Maalox Susp) 30 ml Q4H PRN PO 12/07/16 19:15 01/06/17 19:14 Bismuth Subsalicylate (Kaopectate Liqd) 15 ml DAILY PRN PO 12/07/16 19:15 01/06/17 19:14 Magnesium Hydroxide (Milk Of Magnesia Susp) 30 ml DAILY PRN PO 12/07/16 19:15 01/06/17 19:14 12/14/16 16:03 30 ML Sodium Chloride ([place] Nasal [place]) PRN PRN NA 12/07/16 19:15 01/06/17 19:14 Hydroxyzine HCl (Vistaril Tab) 50 mg HSZ PRN PO 12/07/16 19:15 01/06/17 19:14 12/15/16 01:19 50 MG Hydroxyzine HCl (Vistaril Tab) 25 mg Q4H PRN PO 12/07/16 19:15 01/06/17 19:14 12/09/16 14:14 25 MG Nicotine (Nicoderm Cq 14MG Patch) 1 patch QAM TD 12/08/16 09:00 01/07/17 08:59 Miscellaneous (Remove Nicoderm Patch) 1 ea QAM N/A 12/08/16 09:00 01/07/17 08:59 Methadone HCl (Methadone HCl) 129 mg DAILY PO 12/08/16 09:00 01/05/17 08:59 12/22/16 09:28 129 MG Prazosin HCl (Prazosin) 2 mg HS PO 12/08/16 22:00 01/07/17 21:59 12/21/16 22:05 2 MG Trazodone HCl (Desyrel Tab) 150 mg HS PO 12/13/16 22:00 01/12/17 21:59 12/21/16 22:04 150 MG Escitalopram Oxalate (Lexapro Tab) 20 mg QAM PO 12/18/16 09:00 01/17/17 08:59 12/22/16 09:28 20 MG Lab Results Last 24 Hrs: 12/07/16 16:03 Red Blood Count 4.86, Mean Corpuscular Volume 91.2, Mean Corpuscular Hemoglobin 31.9, Mean Corpuscular Hemoglobin Concent 35.0, Mean Platelet Volume 9.5, Neutrophils (%) (Auto) 56.3, Lymphocytes (%) (Auto) 32.9, Monocytes (%) (Auto) 8.0, Eosinophils (%) (Auto) 1.8, Basophils (%) (Auto) 0.4, Neutrophils # (Auto) 7.41, Lymphocytes # (Auto) 4.32, Monocytes # (Auto) 1.05, Eosinophils # (Auto) 0.24, Basophils # (Auto) 0.05 12/07/16 16:03 Test 12/07/16 15:25 12/07/16 16:03 Urine Color DK YELLOW Urine Appearance CLEAR (CLEAR) Urine pH 5.0 (4.5-7.5) Urine Specific [place] 1.029 (1.000-1.030) Urine Protein NEG (NEG) Urine Glucose (UA) NEG (NEG) Urine Ketones TRACE (NEG) Urine Occult Blood NEG (NEG) Urine Nitrite NEG (NEG) Urine Bilirubin NEG (NEG) Urine Urobilinogen NEG (NEG) Urine Leukocyte Esterase TRACE (NEG) Urine WBC (Auto) 1-5 /hpf (0-5) Urine RBC (Auto) 0-4 /hpf (0-4) Urine Hyaline Casts (Auto) 1-5 /lpf (0-5) Urine Epithelial Cells (Auto) 5-10 /lpf (0-5) Urine Bacteria (Auto) NEG (NEG) Urine Opiates Screen NEG (NEG) Urine Methadone, Qualitative POS (NEG) Urine Methadone Metabolites 01251 NG/ML ([id number]) Urine Methadone Confirm >08826 NG/ML ([id number]=[id number]) Urine Barbiturates NEG (NEG) Urine Phencyclidine (PCP) Level NEG (NEG) Urine Amphetamines Confirmation 2740 NG/ML ([id number]) Ur Amphetamine/Methamphetamine POS (NEG) Urine Methamphetamine Confirmation >89222 NG/ML ([id number]) Urine MDE-amphetamine (MDEA) negative Ur Methylenedioxyamphetamine (MDA) negative MDMA (Ecstasy) Screen POS (NEG) Methylenedioxymethamphetamine (MDMA negative Urine Benzodiazepines Screen NEG (NEG) Urine Cocaine Metabolite NEG (NEG) Urine Marijuana (THC) NEG (NEG) White Blood Count 13.15 K/uL (4.8-10.8) Red Blood Count 4.86 M/uL (4.7-6.1) Hemoglobin 15.5 g/dL (14.0-18.0) Hematocrit 44.3 % (42-52) Mean Corpuscular Volume 91.2 fL (80-100) Mean Corpuscular Hemoglobin 31.9 pg (25-34) Mean Corpuscular Hemoglobin Concent 35.0 g/dl (32-36) Platelet Count 266 K/uL (130-400) Mean Platelet Volume 9.5 fL (7.4-10.4) Neutrophils (%) (Auto) 56.3 % Lymphocytes (%) (Auto) 32.9 % Monocytes (%) (Auto) 8.0 % Eosinophils (%) (Auto) 1.8 % Basophils (%) (Auto) 0.4 % Neutrophils # (Auto) 7.41 K/uL (1.4-6.5) Lymphocytes # (Auto) 4.32 K/uL (1.2-3.4) Monocytes # (Auto) 1.05 K/uL (0.11-0.59) Eosinophils # (Auto) 0.24 K/uL (0-0.5) Basophils # (Auto) 0.05 K/uL (0-0.2) RDW Standard Deviation 45.5 fL (36.4-46.3) RDW Coefficient of Variation 13.6 % (11.5-14.5) Immature Granulocyte % (Auto) 0.6 % Immature Granulocyte # (Auto) 0.08 K/uL (0.00-0.02) Anion Gap 7.0 mmol/L (3-11) Est Creatinine Clear Calc Drug Dose 95.1 ml/min Estimated GFR () 90.3 Estimated GFR (Non- 77.9 BUN/Creatinine Ratio 12.3 (10-20) Calcium Level 9.1 mg/dl (8.5-10.1) Total Bilirubin 0.5 mg/dl (0.2-1) Aspartate Amino Transf (AST/SGOT) 85 U/L (15-37) Alanine Aminotransferase (ALT/SGPT) 144 U/L (12-78) Alkaline Phosphatase 87 U/L (45-117) Total Protein 8.0 gm/dl (6.4-8.2) Albumin 3.6 gm/dl (3.4-5.0) Globulin 4.4 gm/dl (2.5-4.0) Albumin/Globulin Ratio 0.8 (0.9-2) Thyroid Stimulating Hormone (TSH) 3.810 uIu/ml (0.300-4.500) Salicylates Level 2.7 mg/dl (2.8-20) Acetaminophen Level < 2 ug/ml (10-30) Ethyl Alcohol mg/dL < 3.0 mg/dl (0-3) Hepatitis C Antibody NEG (NEG) Problem Qualifiers (1) Opiate dependence: Substance use status: with opioid-induced mood disorder Qualified Codes: F11.24 - Opioid dependence with opioid-induced mood disorder
[2016-12-22] MEDS: TRAZODONE HCL 50 MG TAB PO SCH (22:11)
[2016-12-22] MEDS: PRAZOSIN HCL 1 MG CAP PO SCH (22:12)
[2016-12-23 06:59] VITALS: BP_SYST 108; BP_SYST 110; BP_DIAS 60; BP_DIAS 69; PULSE 50; PULSE 76; TEMP 36.5
[2016-12-23] MEDS: NICOTINE 14 MG/24 HR TDSY TD SCH (09:00)
[2016-12-23] MEDS: METHADONE ORAL SOLN 2 MG/1ML PO SCH (09:04)
[2016-12-23] MEDS: ESCITALOPRAM OXALATE 20 MG TAB PO SCH (09:05)
--- NOTE | 2016-12-23 13:24 | Psychiatric Progress Notes ---
Progress Note Date of Service December 23, 2016. Interval History 36 yo male admitted 12/08 on a voluntary basis after presenting with depression and suicidality after missing his appt to get his methadone that morning. Chief Complaint "OK". Subjective Patient was seen & assessed interval progress reviewed with Treatment Team. The patient says that he made some phone calls yesterday. [facility] is unable to take him because of being on methadone, but he called his ex Jessica who has agreed to allow him to live with her until he gets a job and can move out. He feels good about this, but anxious, and fearing that they will fight. He says that if she starts to bicker, he will take a walk. He also showered and shaved off his agrawal, which he says was a product of his depression. He says thathe looked in the mirror every day and was reminded of his depression and is glad to have it gone. we also trimmed his fingernails today. He denies any SI today, and says that he thinks he can now work toward discharge. Review of Systems Constitutional: No chills, No fatigue, No fever, No problem reported, No sweats , No weakness, No weight loss ENT: No dental problems, No hearing loss, No nasal symptoms, No problem reported, No sore throat, No tinnitus, No trouble swallowing, No unusual epistaxis Respiratory: No cough, No dyspnea at rest, No dyspnea on exertion, No hemoptysis, No problem reported, No shortness of breath, No sputum, No wheezing Cardiovascular: No PND, No chest pain, No claudication, No edema, No orthopnea , No palpitations, No problem reported Musculoskeletal: No calf pain, No joint pain, No muscle pain, No problem reported, No swelling Neurologic: No balance problems, No memory loss, No numbness/tingling, No paralysis, No problem reported, No vertigo, No weakness Psychiatric: + anxiety, + depression symptoms Integumentary: No bleeding, No color change, No itch, No new/changing skin lesions, No problem reported, No rash Sleep Information Total Hours of Sleep: 6.00 Meal Information Percent of Breakfast Consumed: 100 Percent of Lunch Consumed: 100 Percent of Dinner Consumed: 100 Mental Status Exam During interview pt is: alert and oriented, cooperative, other Appearance: appropriately dressed, appropriately groomed Eye contact is: fair Motor behavior is: no abnormal motor movements Speech: normal in rate, rhythm & volume Affect: depressed, blunted Mood is: depressed, anxious Thought process: goal directed Thought content: cognitive distortions (negative thoughts, catastrophizing), reality based without delusions Suicidal thought are: present (but lessening in intensity), Plan: present, Intent: denied (in the hospital, but cannot contract for safety outside of the hospital) Homicidal thoughts are: denied Hallucinations: denies auditory, denies visual Cognition: memory grossly intact, attention grossly intact, language grossly intact Intelligence estimated to be: average Insight: limited Judgement: limited Please see admission H&P. Impression Has been abiding by the behavioral contract and taken it farther to include shaving and caring for his nails. He says that Jessica will allow him to return to her home until he can get a job and move out. Will have social work call Jessica to confirm. If so will work toward discharge as early as this weekend Continued Inpatient Care Patient remains resistant to recommended levels of substance abuse treatment and still expresses SI intermittently. Plan (1) Major depressive disorder, recurrent severe without psychotic features 12/09 - Continue Lexapro 10 mg daily - Q 15 min checks for safety - Encourage participation in group and individual counseling - Family meeting done today with dianne - The patient will psychiatric aftercare - Assist the patient to learn and utilize healthy coping strategies. - EKG completed QTC WNL 12/10 - continue lexapro 10mg qday - staff to maintain boundaries and unit rules with gf (appropriate times for phone calls) - add trazodone hs for sleep, will start at trazodone at 100mg hs given past response to trazodone - encourage group participation - seeking inpt substance rehab - referrals placed 12/09 - pt states leaning towards rescinding 72 hour notice 12/11 - maintain meds unchanged 12/12 - Continue escitalopram 10mg, trazodone 100mg qhs, and prazosin 2mg qhs. 12/13 - Increase trazodone to 150 mg daily at bedtime to target sleep. - [facility] about [facility] abuse treatment options. 12/14 -Patient will continue same medications. May have vistaril at bedtime. Trazodone was increased yesterday -Patient declining inpatient substance abuse treatment after agreeing to do so. He is now wanting outpatient substance abuse treatment 12/15 -continue current medications. Referral pending to [facility] for intensive outpatient substance abuse treatment. 12/17 -Increase escitalopram to 20 mg daily for tomorrow. -Follow-up at [facility] not available until 02/14/2017. Will need an interim appointment with his PCP for medication management. 12/18 -Patient refusing most groups and spending all day in bed. Will ask staff to lock door during group time to encourage better attendance. 12/19 -Better group attendance yesterday, but again today refusing group and retreating to bed. Continue to strongly encourage group attendance and participation in order to work on coping skills in preparation for discharge. Patient does not feel safe to leave the hospital today, and due to risk for suicide if discharged prematurely and when voicing inability to keep himself safe outside the hospital, will continue inpatient treatment. -Scheduled follow-up appointment with PCP, Dr. Amin, for medication management while he is waiting to get in to a psychiatrist. 12/20 -Discharge cancelled as patient had fight with GF and expressed SI with multiple plans. 12/21 -Pt with worsening mood, suicidality with multiple plans, and inability to contract for safety outside of the hospital. Staff to lock his door during group times due to poor attendance. He was advised that he will be on a behavioral plan, which includes showering daily and attending to his ADLs, getting out of bed for meals in groups and participating in treatment, including making phone calls and working on aftercare and housing issues. 12/22 - Behavioral contract - Patient has a list of 3 calls to make today to father, [facility] and ex GF 12/23 - Call Jessica to confirm that she is allowing him to return to her home. (2) PTSD (post-traumatic stress disorder) Meds as above. Refer for therapy. (3) Opiate dependence 12/09 - Continue OP dosing of Methadone - Coordinate with [facility] 12/16/16 - the patient did receive multiple brief interventions >5 min around his substance use. He is in action phase but would not commit to inpatient rehab. He will continue to receive counseling for his dependence as an outpatient through [facility] and [facility]. 12/17 - intake at [facility] for intensive outpatient substance abuse treatment on 12/26/2016. (4) Cannabis use disorder, mild, abuse 12/09 - Recommend abstinence - Will refer for outpatient therapy and psychiatric f/u to address mental illness and substance abuse. 12/16/16 the patient did receive multiple brief interventions >5 min around his substance use. He is in action phase but would not commit to inpatient rehab. He will continue to receive counseling for his dependence as an outpatient through [facility] and [facility]. (5) Tobacco use disorder 12/09 - Counseled about the detrimental effects of nicotine - Provided with a nicotine patch for cessation 12/16/16 - The patient did receive multiple brief interventions >5 min around his substance use. He is in action phase with regards to other substances but not ready to quit nicotine but would not commit to inpatient rehab. He will continue to receive counseling for his dependencies as an outpatient through [facility] and [facility]. 12/20 - Again counseled about the risks of smoking, and patient would like to try to quit. Provided prescription for a patch, and Quit Line appointment, (6) Antisocial personality disorder 12/09 - Recommend therapy Discharge / Aftercare Planning Primary Care Physician: Name: Dr.Burke Street Phone Number: [phone] Date of Appointment: December 27, 2016 Time of Appointment: 10:25 Psychiatrist: Name: Linda Atkinson Medication Management Date of Appointment: Feb 14, 2017 Time of Appointment: Therapist: Name: IOP and Therapy through [facility] Phone Number: [phone] Date of Appointment: December 26, 2016 Time of Appointment: 2:00 Appointment Notes: Intake for IOP and therapy Trouble Lineman: Name: Miley Maldonado at [facility] (and Westley Pena) Phone Number: [phone] Appointment Notes: per regular appointments Home Health Services: Home Health Services: none Visit Code E&M Code: 43371 Risk Factors Assessment Male: Yes : Yes /single/: Yes Higher / Fall in social status: No Access to guns: No Health problems: No Mental Health Diagnoses: Yes Substance use disorders: Yes Previous attempt: Yes Family history of suicide: No Previous psychiatric stay: Yes Hopelessness: Yes Smoker: Yes Protective Factors Assessment Christian beliefs: No : No Responsible for young children: No Employed: No Stable relationships: Yes Supportive family: Yes Absence of risk factors above: Yes (risk factors were mitigated by treating mood and anxiety with medication, involving the patient in groups and therapy on the unit, working on healthy coping skills and her discharge safety plan, referring him for outpatient mental health and substance abuse treatment, educating him about the risks of ongoing substance use and the recommendations from abstinence from controlled substances, a family meeting with his fiance who is his primary support, and recommendations to go to inpatient rehabilitation, which she ultimately declined once a bed was secured. He has demonstrated improvement in mood and anxiety symptoms here, has not engaged in self-injurious or aggressive behavior, is eating, sleeping, and performing ADLs independently, and is denying suicidality. He has gained the maximum benefit from inpatient hospitalization, and is no longer at acute risk of harm to himself, so can be managed as an outpatient at this time. He does remain at chronic increased risk for harm to self given his sex, race, history of suicide attempts, mental illness, substance abuse, and personality disorder, that these risk factors are not modifiable by further inpatient hospitalization.) Data Vital Signs Last 24 Hrs: Date Time Temp Pulse Resp B/P Pulse Ox O2 Delivery O2 Flow Rate FiO2 12/23/16 06:59 36.5 50 16 108/60 76 110/69 Meds Administered Last 24 Hrs: Current Inpatient Medications Medications (Trade) Dose Ordered Sig/Jaime Route Start Time Stop Time Status Last Admin Dose Admin Acetaminophen (Tylenol Tab) 650 mg Q4H PRN PO 12/07/16 19:15 01/06/17 19:14 Al Hydroxide/Mg Hydroxide (Maalox Susp) 30 ml Q4H PRN PO 12/07/16 19:15 01/06/17 19:14 Bismuth Subsalicylate (Kaopectate Liqd) 15 ml DAILY PRN PO 12/07/16 19:15 01/06/17 19:14 Magnesium Hydroxide (Milk Of Magnesia Susp) 30 ml DAILY PRN PO 12/07/16 19:15 01/06/17 19:14 12/14/16 16:03 30 ML Sodium Chloride ([place] Nasal [place]) PRN PRN NA 12/07/16 19:15 01/06/17 19:14 Hydroxyzine HCl (Vistaril Tab) 50 mg HSZ PRN PO 12/07/16 19:15 01/06/17 19:14 12/15/16 01:19 50 MG Hydroxyzine HCl (Vistaril Tab) 25 mg Q4H PRN PO 12/07/16 19:15 01/06/17 19:14 12/09/16 14:14 25 MG Nicotine (Nicoderm Cq 14MG Patch) 1 patch QAM TD 12/08/16 09:00 01/07/17 08:59 Miscellaneous (Remove Nicoderm Patch) 1 ea QAM N/A 12/08/16 09:00 01/07/17 08:59 Methadone HCl (Methadone HCl) 129 mg DAILY PO 12/08/16 09:00 01/05/17 08:59 12/23/16 09:04 129 MG Prazosin HCl (Prazosin) 2 mg HS PO 12/08/16 22:00 01/07/17 21:59 12/22/16 22:12 2 MG Trazodone HCl (Desyrel Tab) 150 mg HS PO 12/13/16 22:00 01/12/17 21:59 12/22/16 22:11 150 MG Escitalopram Oxalate (Lexapro Tab) 20 mg QAM PO 12/18/16 09:00 01/17/17 08:59 12/23/16 09:05 20 MG Lab Results Last 24 Hrs: 12/07/16 16:03 Red Blood Count 4.86, Mean Corpuscular Volume 91.2, Mean Corpuscular Hemoglobin 31.9, Mean Corpuscular Hemoglobin Concent 35.0, Mean Platelet Volume 9.5, Neutrophils (%) (Auto) 56.3, Lymphocytes (%) (Auto) 32.9, Monocytes (%) (Auto) 8.0, Eosinophils (%) (Auto) 1.8, Basophils (%) (Auto) 0.4, Neutrophils # (Auto) 7.41, Lymphocytes # (Auto) 4.32, Monocytes # (Auto) 1.05, Eosinophils # (Auto) 0.24, Basophils # (Auto) 0.05 12/07/16 16:03 Test 12/07/16 15:25 12/07/16 16:03 Urine Color DK YELLOW Urine Appearance CLEAR (CLEAR) Urine pH 5.0 (4.5-7.5) Urine Specific [place] 1.029 (1.000-1.030) Urine Protein NEG (NEG) Urine Glucose (UA) NEG (NEG) Urine Ketones TRACE (NEG) Urine Occult Blood NEG (NEG) Urine Nitrite NEG (NEG) Urine Bilirubin NEG (NEG) Urine Urobilinogen NEG (NEG) Urine Leukocyte Esterase TRACE (NEG) Urine WBC (Auto) 1-5 /hpf (0-5) Urine RBC (Auto) 0-4 /hpf (0-4) Urine Hyaline Casts (Auto) 1-5 /lpf (0-5) Urine Epithelial Cells (Auto) 5-10 /lpf (0-5) Urine Bacteria (Auto) NEG (NEG) Urine Opiates Screen NEG (NEG) Urine Methadone, Qualitative POS (NEG) Urine Methadone Metabolites 96580 NG/ML ([id number]=648) Urine Methadone Confirm >10003 NG/ML ([id number]=298) Urine Barbiturates NEG (NEG) Urine Phencyclidine (PCP) Level NEG (NEG) Urine Amphetamines Confirmation 2740 NG/ML (REESB=258) Ur Amphetamine/Methamphetamine POS (NEG) Urine Methamphetamine Confirmation >84839 NG/ML ([id number]=[id number]) Urine MDE-amphetamine (MDEA) negative Ur Methylenedioxyamphetamine (MDA) negative MDMA (Ecstasy) Screen POS (NEG) Methylenedioxymethamphetamine (MDMA negative Urine Benzodiazepines Screen NEG (NEG) Urine Cocaine Metabolite NEG (NEG) Urine Marijuana (THC) NEG (NEG) White Blood Count 13.15 K/uL (4.8-10.8) Red Blood Count 4.86 M/uL (4.7-6.1) Hemoglobin 15.5 g/dL (14.0-18.0) Hematocrit 44.3 % (42-52) Mean Corpuscular Volume 91.2 fL (80-100) Mean Corpuscular Hemoglobin 31.9 pg (25-34) Mean Corpuscular Hemoglobin Concent 35.0 g/dl (32-36) Platelet Count 266 K/uL (130-400) Mean Platelet Volume 9.5 fL (7.4-10.4) Neutrophils (%) (Auto) 56.3 % Lymphocytes (%) (Auto) 32.9 % Monocytes (%) (Auto) 8.0 % Eosinophils (%) (Auto) 1.8 % Basophils (%) (Auto) 0.4 % Neutrophils # (Auto) 7.41 K/uL (1.4-6.5) Lymphocytes # (Auto) 4.32 K/uL (1.2-3.4) Monocytes # (Auto) 1.05 K/uL (0.11-0.59) Eosinophils # (Auto) 0.24 K/uL (0-0.5) Basophils # (Auto) 0.05 K/uL (0-0.2) RDW Standard Deviation 45.5 fL (36.4-46.3) RDW Coefficient of Variation 13.6 % (11.5-14.5) Immature Granulocyte % (Auto) 0.6 % Immature Granulocyte # (Auto) 0.08 K/uL (0.00-0.02) Anion Gap 7.0 mmol/L (3-11) Est Creatinine Clear Calc Drug Dose 95.1 ml/min Estimated GFR () 90.3 Estimated GFR (Non- 77.9 BUN/Creatinine Ratio 12.3 (10-20) Calcium Level 9.1 mg/dl (8.5-10.1) Total Bilirubin 0.5 mg/dl (0.2-1) Aspartate Amino Transf (AST/SGOT) 85 U/L (15-37) Alanine Aminotransferase (ALT/SGPT) 144 U/L (12-78) Alkaline Phosphatase 87 U/L (45-117) Total Protein 8.0 gm/dl (6.4-8.2) Albumin 3.6 gm/dl (3.4-5.0) Globulin 4.4 gm/dl (2.5-4.0) Albumin/Globulin Ratio 0.8 (0.9-2) Thyroid Stimulating Hormone (TSH) 3.810 uIu/ml (0.300-4.500) Salicylates Level 2.7 mg/dl (2.8-20) Acetaminophen Level < 2 ug/ml (10-30) Ethyl Alcohol mg/dL < 3.0 mg/dl (0-3) Hepatitis C Antibody NEG (NEG) Problem Qualifiers (1) Opiate dependence: Substance use status: with opioid-induced mood disorder Qualified Codes: F11.24 - Opioid dependence with opioid-induced mood disorder
[2016-12-23] MEDS: TRAZODONE HCL 50 MG TAB PO SCH (21:58)
[2016-12-23] MEDS: PRAZOSIN HCL 1 MG CAP PO SCH (21:58)
[2016-12-24 06:52] VITALS: BP_SYST 120; BP_DIAS 81; BP_DIAS 82; PULSE 76; PULSE 90; TEMP 36.5
[2016-12-24] MEDS: NICOTINE 14 MG/24 HR TDSY TD SCH (09:00)
[2016-12-24] MEDS: METHADONE ORAL SOLN 2 MG/1ML PO SCH (09:13)
[2016-12-24] MEDS: ESCITALOPRAM OXALATE 20 MG TAB PO SCH (09:13)
--- NOTE | 2016-12-24 09:21 | Discharge Instructions ---
Discharge Information Report Includes Report will include the: Discharge Instructions & Summary Admission Admission Date / Time: Dec 07, 2016 at 18:07 Reason for Admission: Major Depressive Disorder Discharge Discharge Diagnosis / Problem: Depression, PTSD, opiate dependence Condition at Discharge: Fair Discharge Goals Goal(s): Decrease discomfort, Improve disease control, Prevent Disease Progression Activity Recommendations Activity Limitations: resume your previous activity . Instructions / Follow-Up Instructions / Follow-Up . SPECIAL CARE INSTRUCTIONS: 1. Follow through with your scheduled aftercare appointments. If unable to keep an appointment, please call to reschedule. 2. Take your medication only as prescribed. Medication should not be changed or stopped without the approval of your doctor. In the event of worsening symptoms or concerns about side effects, contact your doctor immediately. 3. Utilize new healthy coping skills, anger management skills, and stress management skills learned during your hospitalization. Journal feelings and process them with a support person. Identify stressors or situations that may result in relapse, deterioration or inappropriate behaviors and develop a plan to deal with those issues. 4. If your coping skills are ineffective and you are in crisis, contact your outpatient providers for direction. If unable to reach your providers, please call the CAN HELP LINE AT or go to the closest Emergency Room. 5. Avoid alcohol and un-prescribed drugs. 6. You have been provided with the Mental Health Advance Directives Pamphlet for your review. AFTERCARE APPOINTMENTS: * Please call your insurance company prior to your scheduled appointment to confirm your aftercare providers are covered. Take your insurance information to your appointments. . Discharge / Aftercare Planning Primary Care Physician: Name: Dr.Burke Street Phone Number: [phone] Date of Appointment: December 27, 2016 Time of Appointment: 10:25 Appointment Notes: as needed Psychiatrist: Name: [facility] Date of Appointment: Feb 14, 2017 Time of Appointment: Therapist: Name Of Therapist: [facility] marco antonio Larry Phone Number: [phone] Date of Appointment: December 26, 2016 Time of Appointment: 2:00 Appointment Comments: Intake for IOP and therapy Coating Manager: Name: Miley Maldonado at [facility] (and Westley Pena) Phone Number: [phone] Appointment Notes: per regular appointments Home Health Services: Home Health Services: none Other: Name of Appointment #1: [facility] ([facility]) Phone Number: [phone] Appointment #1 Notes: daily schedule . Follow-Up Care Plan for Follow-Up Care: The patient will begin OP services on Tuesday 12/26 with [facility] Current Hospital Diet Patient's current hospital diet: Regular Diet Discharge Diet Recommended Diet: Regular Diet Procedures Procedures Performed: No Pending Studies Pending Studies at Discharge: No Medical Emergencies . Who to Call and When: Medical Emergencies: For questions or emergencies related to your hospital stay, please contact the Inpatient Behavioral Health Unit at [phone]. A fire safety inspector is on-call 13/03 for the Behavioral Health Unit for emergencies At any time you feel your situation is an emergency, you may also call 911 immediately. . Non-Emergent Contact Non-Emergency issues call your: Psychiatrist, Therapist Advance Directives Existing Advance Directive: No Do You Have an Existing Mental: No Existing Living Will: No Existing Power of Rn Hyperbaric: No Advance Directives Info Given: To Pt/S.O. Advance Directives Reason: Declines as Mental Health Visit. Discharge Summary Admission HPI Per the Admitting provider: See H&P which is transmitted with this document on discharge. Admission Exam Per the Admitting provider: Please see admission H&P. Hospital Course (1) Major depressive disorder, recurrent severe without psychotic features 12/09 - Continue Lexapro 10 mg daily - Q 15 min checks for safety - Encourage participation in group and individual counseling - Family meeting done today with fiance - The patient will psychiatric aftercare - Assist the patient to learn and utilize healthy coping strategies. - EKG completed QTC WNL 12/10 - continue lexapro 10mg qday - staff to maintain boundaries and unit rules with gf (appropriate times for phone calls) - add trazodone hs for sleep, will start at trazodone at 100mg hs given past response to trazodone - encourage group participation - seeking inpt substance rehab - referrals placed 12/09 - pt states leaning towards rescinding 72 hour notice 12/11 - maintain meds unchanged 12/12 - Continue escitalopram 10mg, trazodone 100mg qhs, and prazosin 2mg qhs. 12/13 - Increase trazodone to 150 mg daily at bedtime to target sleep. - [facility] about [facility] abuse treatment options. 12/14 -Patient will continue same medications. May have vistaril at bedtime. Trazodone was increased yesterday -Patient declining inpatient substance abuse treatment after agreeing to do so. He is now wanting outpatient substance abuse treatment 12/15 -continue current medications. Referral pending to [facility] for intensive outpatient substance abuse treatment. 12/17 -Increase escitalopram to 20 mg daily for tomorrow. -Follow-up at [place] not available until 02/14/2017. Will need an interim appointment with his PCP for medication management. 12/18 -Patient refusing most groups and spending all day in bed. Will ask staff to lock door during group time to encourage better attendance. 12/19 -Better group attendance yesterday, but again today refusing group and retreating to bed. Continue to strongly encourage group attendance and participation in order to work on coping skills in preparation for discharge. Patient does not feel safe to leave the hospital today, and due to risk for suicide if discharged prematurely and when voicing inability to keep himself safe outside the hospital, will continue inpatient treatment. -Scheduled follow-up appointment with PCP, Dr. Amin, for medication management while he is waiting to get in to a psychiatrist. 12/20 -Discharge cancelled as patient had fight with GF and expressed SI with multiple plans. 12/21 -Pt with worsening mood, suicidality with multiple plans, and inability to contract for safety outside of the hospital. Staff to lock his door during group times due to poor attendance. He was advised that he will be on a behavioral plan, which includes showering daily and attending to his ADLs, getting out of bed for meals in groups and participating in treatment, including making phone calls and working on aftercare and housing issues. 12/22 - Behavioral contract - Patient has a list of 3 calls to make today to father, [facility] and ex GF 12/23 - Call Jessica to confirm that she is allowing him to return to her home. (2) PTSD (post-traumatic stress disorder) Meds as above. Refer for therapy. (3) Opiate dependence 12/09 - Continue OP dosing of Methadone - Coordinate with [facility] 12/16/16 - the patient did receive multiple brief interventions >5 min around his substance use. He is in action phase but would not commit to inpatient rehab. He will continue to receive counseling for his dependence as an outpatient through [facility] and [facility]. 12/17 - intake at [facility] for intensive outpatient substance abuse treatment on 12/26/2016. (4) Cannabis use disorder, mild, abuse 12/09 - Recommend abstinence - Will refer for outpatient therapy and psychiatric f/u to address mental illness and substance abuse. 12/16/16 the patient did receive multiple brief interventions >5 min around his substance use. He is in action phase but would not commit to inpatient rehab. He will continue to receive counseling for his dependence as an outpatient through [facility] and [facility]. (5) Tobacco use disorder 12/09 - Counseled about the detrimental effects of nicotine - Provided with a nicotine patch for cessation 12/16/16 - The patient did receive multiple brief interventions >5 min around his substance use. He is in action phase with regards to other substances but not ready to quit nicotine but would not commit to inpatient rehab. He will continue to receive counseling for his dependencies as an outpatient through [facility] and [facility]. 12/20 - Again counseled about the risks of smoking, and patient would like to try to quit. Provided prescription for a patch, and Quit Line appointment, (6) Antisocial personality disorder 12/09 - Recommend therapy Risk Factors Assessment Male: Yes : Yes /single/: Yes Higher / Fall in social status: No Access to guns: No Health problems: No Mental Health Diagnoses: Yes Substance use disorders: Yes Previous attempt: Yes Family history of suicide: No Previous psychiatric stay: Yes Hopelessness: Yes Smoker: Yes Protective Factors Assessment [employer] beliefs: No : No Responsible for young children: No Employed: No Stable relationships: Yes Supportive family: Yes Absence of risk factors above: Yes (risk factors were mitigated by treating mood and anxiety with medication, involving the patient in groups and therapy on the unit, working on healthy coping skills and her discharge safety plan, referring him for outpatient mental health and substance abuse treatment, educating him about the risks of ongoing substance use and the recommendations from abstinence from controlled substances, a family meeting with his fiance who is his primary support, and recommendations to go to inpatient rehabilitation, which she ultimately declined once a bed was secured. He has demonstrated improvement in mood and anxiety symptoms here, has not engaged in self-injurious or aggressive behavior, is eating, sleeping, and performing ADLs independently, and is denying suicidality. He has gained the maximum benefit from inpatient hospitalization, and is no longer at acute risk of harm to himself, so can be managed as an outpatient at this time. He does remain at chronic increased risk for harm to self given his sex, race, history of suicide attempts, mental illness, substance abuse, and personality disorder, that these risk factors are not modifiable by further inpatient hospitalization.) Day of Discharge Assessment COURSE OF HOSPITALIZATION: The patient was on the unit for 17 days. We attempted to discharge him at least 2 times during his stay but each time he felt unable to leave, developing suicidal thinking. During his stay, he was restarted on medications including Lexapro, trazodone and prazosin for his PTSD nightmares. He was continued on methadone at his outpatient dose. His primary stressor has been that of his relationship with his girlfriend Jessica. She had accused him of having affairs and time of his last scheduled discharge, she claims to have found evidence of this affairs and said that she was ending the relationship and he could not return home. This caused him to have an acute decompensation if he had no other resources, supports placed. Several days later, she agreed to come live with her well on his feet and last night visited and according to the patient, said she may even be willing to get into therapy in order to continue in their relationship. In the last several days he has signed and been working with a behavioral contract that included showering daily , taking better care of his ADLs, attending groups, and participating in his own aftercare. He has been able to abide by this contract and even decided to shave off his agrawal, which she saw as a symptom of his depression. He has denied suicidal thinking for the last several days and we will therefore moved toward discharge today. DAY OF DISCHARGE ASSESSMENT: Today the patient's continues to deny suicidal ideation. He reviews his visit with Jessica last night and is hopeful that maybe they can renew their relationship through the use of couple's therapy. He denies side effects to meds, and reports his mood as "good". I then tell him about discharging today and he immediately begins to back track, wanting to postpone the discharge. The patient has a lot of approach-avoidance about discharge, fearing leaving the hospital encouraged him that nothing would likely change in 1 or 2 days in view of the fact he has his discharge plan lined up with aftercare appointments that start on Monday. He reluctantly agrees to call Jessica to see if she can pick him up. Today he is casually and appropriately dressed and groomed. Gait and station are within normal limits. Eye contact is poor today after I tell him of discharge. Speech is of normal rate volume and tone. Thoughts are organized, goal-directed, without evidence of thought disorder. Recent and remote memory are intact per conversation. Intelligence is estimated to be average. Insight and judgment are improved over admission. Laboratory Test 12/07/16 15:25 12/07/16 16:03 Urine Color DK YELLOW Urine Appearance CLEAR Urine pH 5.0 Urine Specific [place] 1.029 Urine Protein NEG Urine Glucose (UA) NEG Urine Ketones TRACE Urine Occult Blood NEG Urine Nitrite NEG Urine Bilirubin NEG Urine Urobilinogen NEG Urine Leukocyte Esterase TRACE Urine WBC (Auto) 1-5 Urine RBC (Auto) 0-4 Urine Hyaline Casts (Auto) 1-5 Urine Epithelial Cells (Auto) 5-10 Urine Bacteria (Auto) NEG Urine Opiates Screen NEG Urine Methadone, Qualitative POS Urine Methadone Metabolites 17117 Urine Methadone Confirm >45451 Urine Barbiturates NEG Urine Phencyclidine (PCP) Level NEG Urine Amphetamines Confirmation 2740 Ur Amphetamine/Methamphetamine POS Urine Methamphetamine Confirmation >17789 Urine MDE-amphetamine (MDEA) negative Ur Methylenedioxyamphetamine (MDA) negative MDMA (Ecstasy) Screen POS Methylenedioxymethamphetamine (MDMA negative Urine Benzodiazepines Screen NEG Urine Cocaine Metabolite NEG Urine Marijuana (THC) NEG White Blood Count 13.15 Red Blood Count 4.86 Hemoglobin 15.5 Hematocrit 44.3 Mean Corpuscular Volume 91.2 Mean Corpuscular Hemoglobin 31.9 Mean Corpuscular Hemoglobin Concent 35.0 Platelet Count 266 Mean Platelet Volume 9.5 Neutrophils (%) (Auto) 56.3 Lymphocytes (%) (Auto) 32.9 Monocytes (%) (Auto) 8.0 Eosinophils (%) (Auto) 1.8 Basophils (%) (Auto) 0.4 Neutrophils # (Auto) 7.41 Lymphocytes # (Auto) 4.32 Monocytes # (Auto) 1.05 Eosinophils # (Auto) 0.24 Basophils # (Auto) 0.05 RDW Standard Deviation 45.5 RDW Coefficient of Variation 13.6 Immature Granulocyte % (Auto) 0.6 Immature Granulocyte # (Auto) 0.08 Sodium Level 141 Potassium Level 3.8 Chloride Level 105 Carbon Dioxide Level 29 Anion Gap 7.0 Blood Urea Nitrogen 15 Creatinine 1.20 Est Creatinine Clear Calc Drug Dose 95.1 Estimated GFR () 90.3 Estimated GFR (Non- 77.9 BUN/Creatinine Ratio 12.3 Random Glucose 115 Calcium Level 9.1 Total Bilirubin 0.5 Aspartate Amino Transferase (AST) 85 Alanine Aminotransferase (ALT) 144 Alkaline Phosphatase 87 Total Protein 8.0 Albumin 3.6 Globulin 4.4 Albumin/Globulin Ratio 0.8 Thyroid Stimulating Hormone (TSH) 3.810 Salicylates Level 2.7 Acetaminophen Level < 2 Ethyl Alcohol mg/dL < 3.0 Hepatitis C Antibody NEG Total Time Total Time Spent (min): Greater than 30 minutes Total Time Included: examination of the patient, discharge planning, medication reconciliation, communication with other providers Tobacco Cessation at Discharge Smoking Status: Current Every Day Smoker FDA approved Prescription: nicotine replacement product Problem Qualifiers (1) Opiate dependence: Substance use status: with opioid-induced mood disorder Qualified Codes: F11.24 - Opioid dependence with opioid-induced mood disorder
--- NOTE | 2016-12-24 09:51 | Psych Management Progress Note ---
Psychiatry Miscellaneous Date of Service: December 24, 2016. Patient seen, MS assessed. Rates mood as anxious re: discharge but wants to get "back to life". Voiced desire to cooperate with outpatient appointments. Discharge ordered as discussed with J[employer].
[2017-04-03] MEDS ORDERED: CTP1 PO (09:42)
[2017-05-26] MEDS ORDERED: CIPR-255 PO (19:17)
[2017-05-26] MEDS ORDERED: TRAZ1TAB52 PO (19:18)
[2017-05-26] MEDS ORDERED: HYDR12.56 PO (19:20)
[2017-05-26] MEDS ORDERED: HYDR50CA PO (19:23)
[2017-05-26] MEDS ORDERED: TORADOL 15 MG/ML IM (19:26)
[2017-05-28] MEDS ORDERED: CEPH500C2 PO (13:59)
[2017-05-28] MEDS ORDERED: FLM4 PO (13:59)
[2017-05-28] MEDS ORDERED: MTR600X OR (14:22)
== END 2016-12-24 14:05 | disposition home or self-care (01) | DRG 885 ==
LOC: ENRESERVDT → ENRESERVTM → C.EDB 15:04 → C.MHU 18:07
PROVIDERS: ADMIT Psychiatry & Neurology Psychiatry; ATTEND Psychiatry & Neurology Child & Adolescent Psychiatry
DX: F33.2 Major depressive disorder, recurrent severe without psychotic features (principal); F11.24 Opioid dependence with opioid-induced mood disorder; F12.90 Cannabis use, unspecified, uncomplicated; F17.200 Nicotine dependence, unspecified, uncomplicated; F41.9 Anxiety disorder, unspecified; E86.0 Dehydration; F60.2 Antisocial personality disorder; F43.10 Post-traumatic stress disorder, unspecified; Z87.442 Personal history of urinary calculi

== ENCOUNTER 2017-03-28 20:48 | Inpatient (IN) | payer OTHER ==
[~2017-03-28] VITALS: Ht 162.6 cm; Wt 105.9 kg
[~2017-03-28 20:48] MED LIST changes: -CLX40 PO; +ESCI1TAB10 PO; -METH10TA2 PO; +PRAZ2CAP2 PO; -PRZ1 PO; +[UNRECOGNIZED DRUG - CODE] PO
--- NOTE | 2017-03-28 21:41 | EMERGENCY ROOM VISIT NOTE ---
History Report prepared by Larisa: Marielena Vallejo Under the Supervision of: Dr. Papo Wong M.D. First contact with patient: 21:15 Chief Complaint: MENTAL HEALTH EVALUATION Stated Complaint: REFFERAL AND ASSESMENT History of Present Illness The patient is a 36 year old male who presents to the Emergency Room with complaints of worsening depression over the past several days. The patient present to the emergency department with persistent suicidal thoughts. He states that he has a plan, noting that he has been researching ways to commit suicide. The patient states that he has a history of previous attempts, noting that he attempted with overdose. He denies any attempt today. The patient denies any drug or alcohol use today. He states that today he talked to his counselor and states that they referred [facility] to come to his home and do a full assessment. The patient states that after his evaluation he was told that he had a bed waiting him at [facility]. He denies any auditory hallucinations. The patient states that he has been suffering from severe paranoia and delusions. He states that he has a history of PTSD, intermittent explosive disorder, depression, social anxiety, and insomnia. The patient states that he is a smoker. Source of History: patient Onset: past several days Position: other (global) Quality: other (depression) Timing: worsening Note: Associated Symptoms: suicidal thoughts with a plan Review of Systems See HPI for pertinent positives and negatives. A total of ten systems were reviewed and were otherwise negative. Past Medical & Surgical Medical Problems: (1) Acute gastroenteritis (2) ACUTE PANCREATITIS (3) Amphetamine abuse (4) Antisocial personality disorder (5) CALCULUS OF KIDNEY (6) Cannabis use disorder, mild, abuse (7) Cholecystectomy (8) Chronic back pain (9) Gallbladder problem (10) Kidney stone (11) Major depressive disorder, recurrent severe without psychotic features (12) NONINF GASTROENTERIT NEC (13) Opiate dependence (14) POIS-SEDATIVE/HYPNOT NEC (15) PTSD (post-traumatic stress disorder) (16) Spasm of back muscles (17) Stomach problems (18) Thoracic back pain (19) Tobacco use disorder Family History Patient reports no known family medical history. Social History Smoking Status: Current Every Day Smoker Alcohol Use: none Drug Use: marijuana Marital Status: in relationship Housing Status: lives with family Occupation Status: employed Current/Historical Medications Scheduled Escitalopram Oxalate (Lexapro), 20 MG PO DAILY Methadone HCl (Methadose), 120 MG PO DAILY Prazosin Hcl (Prazosin), 2 MG PO BID Trazodone Hcl (Trazodone), 150 MG PO HS Allergies Coded Allergies: No Known Allergies (Verified , 03/28/17) Physical Exam Vital Signs Date Time Temp Pulse Resp B/P (MAP) Pulse Ox O2 Delivery O2 Flow Rate FiO2 03/28/17 23:36 138/102 03/28/17 22:26 65 18 134/88 96 Room Air 03/28/17 20:56 36.7 67 20 135/86 94 Room Air Physical Exam GENERAL: Awake, alert, anxious-appearing, in no distress HENT: Normocephalic, atraumatic. Mucous membranes are dry. EYES: Normal conjunctiva. Sclera non-icteric. NECK: Supple. No nuchal rigidity. FROM. No JVD. RESPIRATORY: Clear to auscultation. CARDIAC: Regular rate, normal rhythm. Extremities warm and well perfused. Pulses equal. ABDOMEN: Obese abdomen. Soft, non-distended. No tenderness to palpation. No rebound or guarding. No masses. RECTAL: Deferred. MUSCULOSKELETAL: Chest examination reveals no tenderness. The back is symmetrical on inspection without obvious abnormality. There is no CVA tenderness to palpation. No joint edema. LOWER EXTREMITIES: Calves are equal size bilaterally and non-tender. No edema. No discoloration. Pulses are equal. NEURO: Normal sensorium. No sensory or motor deficits noted. SKIN: No rash or jaundice noted. PSYCH: Positive suicidal ideation with plan. Medical Decision & Procedures Laboratory Results 03/28/17 21:52 Red Blood Count 4.25, Mean Corpuscular Volume 92.5, Mean Corpuscular Hemoglobin 31.3, Mean Corpuscular Hemoglobin Concent 33.8, Mean Platelet Volume 9.3, Neutrophils (%) (Auto) 46.5, Lymphocytes (%) (Auto) 42.8, Monocytes (%) (Auto) 8.5, Eosinophils (%) (Auto) 1.4, Basophils (%) (Auto) 0.4, Neutrophils # (Auto) 5.02, Lymphocytes # (Auto) 4.60, Monocytes # (Auto) 0.91, Eosinophils # (Auto) 0.15, Basophils # (Auto) 0.04 03/28/17 21:52 Test 8/8/17 21:15 03/28/17 21:52 03/28/17 21:58 Urine Color YELLOW Urine Appearance CLEAR (CLEAR) Urine pH 5.0 (4.5-7.5) Urine Specific Mona 1.026 (1.000-1.030) Urine Protein NEG (NEG) Urine Glucose (UA) NEG (NEG) Urine Ketones TRACE (NEG) Urine Occult Blood NEG (NEG) Urine Nitrite NEG (NEG) Urine Bilirubin NEG (NEG) Urine Urobilinogen NEG (NEG) Urine Leukocyte Esterase NEG (NEG) White Blood Count 10.76 K/uL (4.8-10.8) Red Blood Count 4.25 M/uL (4.7-6.1) Hemoglobin 13.3 g/dL (14.0-18.0) Hematocrit 39.3 % (42-52) Mean Corpuscular Volume 92.5 fL (80-100) Mean Corpuscular Hemoglobin 31.3 pg (25-34) Mean Corpuscular Hemoglobin Concent 33.8 g/dl (32-36) Platelet Count 229 K/uL (130-400) Mean Platelet Volume 9.3 fL (7.4-10.4) Neutrophils (%) (Auto) 46.5 % Lymphocytes (%) (Auto) 42.8 % Monocytes (%) (Auto) 8.5 % Eosinophils (%) (Auto) 1.4 % Basophils (%) (Auto) 0.4 % Neutrophils # (Auto) 5.02 K/uL (1.4-6.5) Lymphocytes # (Auto) 4.60 K/uL (1.2-3.4) Monocytes # (Auto) 0.91 K/uL (0.11-0.59) Eosinophils # (Auto) 0.15 K/uL (0-0.5) Basophils # (Auto) 0.04 K/uL (0-0.2) RDW Standard Deviation 46.3 fL (36.4-46.3) RDW Coefficient of Variation 13.7 % (11.5-14.5) Immature Granulocyte % (Auto) 0.4 % Immature Granulocyte # (Auto) 0.04 K/uL (0.00-0.02) Anion Gap 5.0 mmol/L (3-11) Est Creatinine Clear Calc Drug Dose 83.0 ml/min Estimated GFR () 74.9 Estimated GFR (Non- 64.6 BUN/Creatinine Ratio 7.5 (10-20) Calcium Level 8.9 mg/dl (8.5-10.1) Total Bilirubin 0.3 mg/dl (0.2-1) Direct Bilirubin < 0.1 mg/dl (0-0.2) Aspartate Amino Transf (AST/SGOT) 41 U/L (15-37) Alanine Aminotransferase (ALT/SGPT) 83 U/L (12-78) Alkaline Phosphatase 59 U/L (45-117) Total Protein 7.1 gm/dl (6.4-8.2) Albumin 3.3 gm/dl (3.4-5.0) Globulin 3.8 gm/dl (2.5-4.0) Albumin/Globulin Ratio 0.9 (0.9-2) Thyroid Stimulating Hormone (TSH) 4.330 uIu/ml (0.300-4.500) Salicylates Level 1.8 mg/dl (2.8-20) Acetaminophen Level < 2 ug/ml (10-30) Ethyl Alcohol mg/dL < 3.0 mg/dl (0-3) Urine Opiates Screen NEG (NEG) Urine Methadone, Qualitative POS (NEG) Urine Barbiturates NEG (NEG) Urine Phencyclidine (PCP) Level NEG (NEG) Ur Amphetamine/Methamphetamine POS (NEG) MDMA (Ecstasy) Screen POS (NEG) Urine Benzodiazepines Screen NEG (NEG) Urine Cocaine Metabolite NEG (NEG) Urine Marijuana (THC) NEG (NEG) Laboratory results reviewed by me Medications Administered Medications (Trade) Dose Ordered Sig/Jaime Route Start Time Stop Time Status Last Admin Dose Admin Trazodone HCl (Desyrel Tab) 150 mg NOW ONCE PO 03/28/17 23:30 03/28/17 23:31 DC 03/28/17 23:34 150 MG Prazosin HCl (Prazosin) 2 mg NOW STAT PO 03/28/17 23:23 03/28/17 23:24 DC 03/28/17 23:34 2 MG ECG Indication: toxicologic Rate (beats per minute): 53 Rhythm: sinus bradycardia Findings: no acute ischemic change, other (normal intervals) ED Course 2130: The patient was evaluated in room A5. A complete history and physical exam was performed. 2323: Ordered Prazosin 2 mg PO. 2330: Ordered Trazodone HCl 150 mg PO. 0005: The patient has been accepted to [facility] for further psychological evaluation and treatment. He is in agreement with the treatment plan. Medical Decision I reviewed the patient's past medical history, medications, and the nursing notes as described above. The patient's presentation and history were concerning for Anxiety, depression, suicidal ideation, toxicologic overdose. The patient is a 36 y/o gentle man with pmhx of depression who presents to the emergency department with SI with plan per HPI. Arrives to the ED depressed appearting, tearful about thoughts he has of wanting to kill himself. Considering patient's active thoughts of SI inpatient psych admission indicated. Exam unremarkable. Denies drug use or attempts and self harm. Labs/ EKg unremarkable. Medically cleared and admitted to psych service. Medication Reconcilliation Current Medication List: was personally reviewed by me Blood Pressure Screening Patient's blood pressure: Elevated blood pressure Blood pressure disposition: Elevated BP felt to be situational, Did not require urgent referral Impression Primary Impression: Depression Additional Impression: Suicidal ideation Scribe Attestation The scribe's documentation has been prepared under my direction and personally reviewed by me in its entirety. I confirm that the note above accurately reflects all work, treatment, procedures, and medical decision making performed by me. Departure Information Dispostion Mental Health Acute Care Referrals Olivia Amin M.D. (MEDICAL) (PCP) Problem Qualifiers
[2017-03-28] MEDS ORDERED: TRAZ50TA35 PO (21:43)
[2017-03-28] MEDS ORDERED: ESCI1TAB10 PO (21:43)
[2017-03-28] MEDS ORDERED: PRAZ2CAP3 PO (21:43)
[2017-03-28 21:53] LABS: MANUAL MICROSCOPIC REQUIRED? NO; REVIEW REQ? NO; URINE APPEARANCE CLEAR (CLEAR); URINE BILIRUBIN NEG (NEG); URINE COLOR YELLOW; URINE NITRITE NEG (NEG); URINE SPECIFIC GRAVITY 1.026 (1.000-1.030); UROBILINOGEN NEG (NEG)
[2017-03-28 22:07] LABS: BASO % 0.4 %; BASO ABS # 0.04 K/uL (0-0.2); COMPLETE YES; EOS % 1.4 %; HEMATOCRIT 39.3 % (42-52); IG% 0.4 %; LYMPH % 42.8 %; MEAN CELL VOLUME 92.5 fL (80-100); MEAN CORPUSCULAR HEMOGLOBIN 31.3 pg (25-34); MEAN CORPUSCULAR HGB CONC 33.8 g/dl (32-36); MEAN PLATELET VOLUME 9.3 fL (7.4-10.4); MONO % 8.5 %; NEUT % 46.5 %; PLATELET COUNT 229 K/uL (130-400); RED BLOOD COUNT 4.25 M/uL (4.7-6.1); WHITE BLOOD COUNT 10.76 K/uL (4.8-10.8)
[2017-03-28 22:24] LABS: ALT/SGPT 83 U/L (12-78); BLOOD UREA NITROGEN 11 mg/dl (7-18); BUN/CREATININE RATIO 7.5 (10-20); CALCIUM 8.9 mg/dl (8.5-10.1); CARBON DIOXIDE 32 mmol/L (21-32); CHLORIDE 108 mmol/L (98-107); GLUCOSE 92 mg/dl (70-99); POTASSIUM 3.6 mmol/L (3.5-5.1); SODIUM 145 mmol/L (136-145)
[2017-03-28 22:34] LABS: BENZODIAZEPINE, URINE NEG (NEG); COCAINE,URINE NEG (NEG); PHENCYCLIDINE, URINE NEG (NEG)
[2017-03-28 22:35] LABS: ALB/GLOB RATIO 0.9 (0.9-2); ALKALINE PHOSPHATASE 59 U/L (45-117); AST/SGOT 41 U/L (15-37)
[2017-03-28 22:39] LABS: ACETAMINOPHEN < 2 ug/ml (10-30)
[2017-03-28] MEDS ORDERED: PRAZOSIN HCL 1 MG CAP PO STA (23:23)
[2017-03-28] MEDS ORDERED: TRAZODONE HCL 50 MG TAB PO ONE (23:30)
[2017-03-29] MEDS ORDERED: NURSING VERBAL MED ORDER ONE
[2017-03-29 00:06] VITALS: BP 143/89; PULSE 55; TEMP 36.7; Ht 162.6 cm; Wt 105.9 kg
[2017-03-29 00:45] VITALS: O2SAT 95
[2017-03-29] MEDS ORDERED: hydrOXYzine HCL 25 MG TAB PO PRN ×2 (01:15)
[2017-03-29] MEDS ORDERED: MAGNESIUM HYDROXIDE SUSP 30 ML UDC PO PRN (01:15)
[2017-03-29] MEDS ORDERED: ALUMINUM/MAGNESIUM SUSP 30 ML UDC PO PRN (01:15)
[2017-03-29] MEDS ORDERED: SODIUM CHLORIDE 0.65% NA SOLN 45 ML (OCEAN) PRN (01:15)
[2017-03-29] MEDS ORDERED: BISMUTH SUBSALICYLATE PER ML OMNICELL CHARGE PO PRN (01:15)
[2017-03-29] MEDS ORDERED: ACETAMINOPHEN 325 MG TAB PO PRN (01:15)
[2017-03-29 06:55] VITALS: BP_SYST 125; BP_SYST 136; BP_DIAS 82; BP_DIAS 93; PULSE 55; PULSE 69; TEMP 36.3
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
[2017-03-29] MEDS ORDERED: ESCITALOPRAM OXALATE 20 MG TAB PO ONE (10:00)
[2017-03-29] MEDS ORDERED: METHADONE HCL 10 MG TAB PO SCH (10:00)
[2017-03-29] MEDS ORDERED: METHADONE ORAL SOLN 2 MG/1ML PO SCH (11:00)
[2017-03-29] MEDS: PRAZOSIN HCL 1 MG CAP PO SCH ×2 (11:04→20:57)
[2017-03-29] MEDS: TRAZODONE HCL 50 MG TAB PO SCH (20:56)
[2017-03-30 06:46] VITALS: BP_SYST 126; BP_SYST 127; BP_DIAS 84; BP_DIAS 86; PULSE 65; PULSE 71; TEMP 36.4
--- NOTE | 2017-03-30 08:32 | Psychiatric Progress Notes ---
Progress Note Date of Service Mar 30, 2017. Interval History Michael Napoles is a 36-year-old male who currently lives in [place], has a history of depression, PTSD, polysubstance abuse, and antisocial personality disorder who was admitted on a 201 voluntary commitment for depression and suicidality. He was assessed at home by [facility] and referred for admission. Chief Complaint "Stomach not feeling good". Subjective Patient was seen & assessed interval progress reviewed with Nursing. Staff report he is going to groups, and remains willing for rehab. He isolates in his room when not in group. Beulah Maldonado at the [facility] was contacted as she has been working with him to try to get into rehab, and some referrals were made. He is eating and sleeping well. He says he is getting benefit from groups, but listened more than he participated. Mood is "pretty down on myself, mostly for what I said yesterday," (that he was abusing his girlfriend's child's stimulants ). He says he talked to his girlfriend and told her, and "she was pretty upset with me." He now says he was lying when he said he took her child's medications , and that really he has been doing meth. He says he started using meth in September, and has been binging on it every 1-2 weeks. He says his counselor at [facility] "knows I've been showing up hot for amphetamines, but I wasn't completely honest with them, told them I got pills from a friend." Suicidal thoughts are improved, although he doesn't feel safe leaving the hospital, but thinks he is safe in the hospital or at rehab. He says he "hates myself pretty bad right now," and endorses guilt about the choices he's made, "all I do is cause people harm." He denies a plan or intent to harm himself as long as he is in the hospital or rehab. Spoke to Millicent, his counselor at [facility] for the past 3 years, who states that he has tested positive for amphetamines multiple times in the past 7 months. He told her he was taking prescription stimulants, and did not tell them he was abusing meth. She had referred him to [facility] at the beginning of February, and he had to contact them to follow up on the referral, but he did not. He has a hearing tomorrow for DUI, and anticipates that he will be going to custodial, so they were looking into rehab to detox him off methadone. He has missed multiple sessions with her over the past month and a half. Sleep Information Total Hours of Sleep: 7.00 Meal Information Percent of Breakfast Consumed: 100 Percent of Lunch Consumed: 90 Percent of Dinner Consumed: 90 Mental Status Exam During interview pt is: alert and oriented, cooperative Appearance: disheveled, other (obese, dressed in scrub pants, long hair which is unkempt, tattoos on bilater forearms.) Eye contact is: poor Motor behavior is: steady gait & station, no abnormal motor movements Speech: normal in rate, rhythm & volume Affect: mood congruent, depressed, tearful, constricted Mood is: depressed Thought process: goal directed Thought content: reality based without delusions Suicidal thought are: present, Intent: denied Homicidal thoughts are: denied Hallucinations: denies auditory, denies visual Cognition: memory grossly intact, attention grossly intact, language grossly intact Intelligence estimated to be: average Insight: impaired Judgement: impaired Impression 36-year-old male with a history of antisocial personality disorder, recurrent depression, PTSD, and polysubstance abuse who presents with worsening mood, anxiety, and suicidal ideation with multiple plans in the context of methamphetamine and Ritalin abuse, as well as multiple psychosocial stressors. He has been consistently dishonest in treatment, especially with respect to his substance abuse and legal problems. He did not disclose that he has a hearing for his DUI this week, and believes he will be going to custodial. Plan (1) Suicidal ideation Suicide checks for safety. Attend groups and work on safety plan. Family meeting with girlfriend whom he lives with. 03/30 - patient feels safe as long as he is in the hospital or rehab, denies plan or intent to harm himself at this time, but would not feel safe going home at this time. (2) Major depressive disorder, recurrent severe without psychotic features Noncompliance with OP f/u and meds. Resume escitalopram 20mg qam, trazodone 150mg qhs, and prazosin at home doses. Will need re-referred for OP care. 03/30 - re-referred to [facility] for med management. Exploring rehab. (3) PTSD (post-traumatic stress disorder) Resume prazosin and escitalopram. (4) Opiate dependence Dose confirmed with [facility], will order as solution here to decrease abuse potential/cheeking. Will coordinate care with therapist Millicent given ongoing substance abuse. 03/30 - Coordinated care with his counselor, Millicent, at [facility] - he has been poorly compliant with treatment there, has had multiple drug screens positive for amphetamines, but did not disclose his meth abuse to them. They have recommended inpatient rehab, but he did not follow through on the referral. She also stated he has a DUI hearing this week and expects he will go to custodial. - Ask patient to allow coordination with his PO regarding his legal issues. (5) Amphetamine abuse Patient admits to abusing meth and Ritalin, which he is taking from his girlfriend's son. Recommend inpatient rehab, which he is willing for. CYS report made via [employer] due to patient's abusing his girlfriend's child's stimulants (made to April, [id number]). 03/30 - He remains willing for rehab, and referrals are being made. (6) Antisocial personality disorder Maintain consistent boundaries. Recommend OP therapy. (7) Tobacco use disorder Smoke 1/2 PPD. Educated about risks of ongoing use and will provide patch and gum for cravings here. (8) Cannabis use disorder, mild, abuse Discharge / Aftercare Planning Primary Care Physician: Name: Dr. Amin Therapist: Name: none Database Report Writer: Name: Rossi Maldonado Visit Code E&M Code: 74322 Inventory Assets Strengths: has children, willing for rehab Risk Factors Assessment Male: Yes : Yes /single/: No Higher / Fall in social status: No Health problems: Yes Mental Health Diagnoses: Yes Substance use disorders: Yes Previous attempt: Yes Previous psychiatric stay: Yes Hopelessness: Yes Smoker: Yes Protective Factors Assessment Jewish beliefs: Yes : No Responsible for young children: Yes Employed: No Stable relationships: Yes Supportive family: No Good rapport with provider: No (noncompliant with outpatient treatment) Data Vital Signs Last 24 Hrs: Date Time Temp Pulse Resp B/P (MAP) Pulse Ox O2 Delivery O2 Flow Rate FiO2 03/30/17 06:46 36.4 65 18 126/84 71 127/86 Meds Administered Last 24 Hrs: Meds Administered (Past 24Hrs) Medications (Trade) Dose Ordered Sig/Jaime Route Start Time Stop Time Status Last Admin Dose Admin Trazodone HCl (Desyrel Tab) 150 mg NOW ONCE PO 03/28/17 23:30 03/28/17 23:31 DC 03/28/17 23:34 150 MG Prazosin HCl (Prazosin) 2 mg NOW STAT PO 03/28/17 23:23 03/28/17 23:24 DC 03/28/17 23:34 2 MG Trazodone HCl (Desyrel Tab) 150 mg HS PO 03/29/17 22:00 04/28/17 21:59 03/29/17 20:56 150 MG Prazosin HCl (Prazosin) 2 mg BID PO 03/29/17 10:00 04/28/17 09:59 03/29/17 20:57 2 MG Escitalopram Oxalate (Lexapro Tab) 20 mg 1000 ONCE PO 03/29/17 10:00 03/29/17 10:01 DC 03/29/17 11:04 20 MG Methadone HCl (Methadone HCl) 120 mg TODAY@1100 PO 03/29/17 11:00 03/29/17 13:00 DC 03/29/17 11:05 120 MG
[2017-03-30] MEDS: ESCITALOPRAM OXALATE 20 MG TAB PO SCH (09:39)
[2017-03-30] MEDS: PRAZOSIN HCL 1 MG CAP PO SCH ×2 (09:39→22:12)
[2017-03-30] MEDS: METHADONE ORAL SOLN 2 MG/1ML PO SCH (09:40)
[2017-03-30] MEDS ORDERED: ONDANSETRON 4MG OD TAB PO PRN (12:30)
[2017-03-30] MEDS: TRAZODONE HCL 50 MG TAB PO SCH (22:12)
[2017-03-31 06:48] VITALS: BP_SYST 128; BP_SYST 129; BP_DIAS 85; BP_DIAS 88; PULSE 49; PULSE 64; TEMP 36.5
[2017-03-31] MEDS: PRAZOSIN HCL 1 MG CAP PO SCH ×2 (08:16→22:14)
[2017-03-31] MEDS: ESCITALOPRAM OXALATE 20 MG TAB PO SCH (08:16)
[2017-03-31] MEDS: METHADONE ORAL SOLN 2 MG/1ML PO SCH (08:16)
--- NOTE | 2017-03-31 11:32 | Psychiatric Progress Notes ---
Progress Note Date of Service Mar 31, 2017. Interval History Michael Napoles is a 36-year-old male who currently lives in [place], has a history of depression, PTSD, polysubstance abuse, and antisocial personality disorder who was admitted on a 201 voluntary commitment for depression and suicidality. He was assessed at home by [facility] and referred for admission. Chief Complaint "I'm pretty down on myself.". Subjective Patient was seen & assessed interval progress reviewed with Treatment Team. Michael is talking about feeling sorry that he has made so many mistakes and sees that those mistakes are impacting his ability to get help and affecting those around him. He admits that he has lied and not taken treatment seriously , but now wants to get the help he has pushed aside. He says that he feels like he is "toxic to people around me". He is aware that his loss prevention officer is revoking his probation and that he [facility] going [facility]. In that case, he is willing to have his methadone tapered, feeling anxious about going through withdrawal in [place] [facility] where they will not prescribe methadone. He admits to having some thoughts about suicide when he thinks that he is toxic to people, but denies plan/intent. He rates his mood 4/10. Staff report that he has been attending groups regularly. Review of Systems Constitutional: No fever, No chills, No sweats, No weight loss, No weakness, No fatigue, No problem reported ENT: No hearing loss, No unusual epistaxis, No nasal symptoms, No sore throat, No tinnitus, No dental problems, No trouble swallowing, No problem reported Respiratory: No cough, No sputum, No wheezing, No shortness of breath, No dyspnea on exertion, No dyspnea at rest, No hemoptysis, No problem reported Cardiovascular: No chest pain, No orthopnea, No PND, No edema, No claudication , No palpitations, No problem reported Abdomen: No pain, No nausea, No vomiting, No diarrhea, No constipation, No GI bleeding, No problem reported Musculoskeletal: No joint pain, No muscle pain, No swelling, No calf pain, No problem reported Neurologic: No memory loss, No paralysis, No weakness, No numbness/tingling, No vertigo, No balance problems, No problem reported Psychiatric: + depression symptoms Integumentary: No rash, No itch, No new/changing skin lesions, No color change , No bleeding, No problem reported Sleep Information Total Hours of Sleep: 6.00 Meal Information Percent of Breakfast Consumed: 100 Percent of Lunch Consumed: 90 Percent of Dinner Consumed: 100 Mental Status Exam During interview pt is: alert and oriented, cooperative Appearance: disheveled, other (obese, dressed in scrub pants, long hair which is unkempt, tattoos on bilater forearms, malodorous) Eye contact is: poor Motor behavior is: steady gait & station, no abnormal motor movements Speech: normal in rate, rhythm & volume Affect: mood congruent, depressed, flat Mood is: depressed Thought process: goal directed Thought content: reality based without delusions Suicidal thought are: present, Intent: denied Homicidal thoughts are: denied Hallucinations: denies auditory, denies visual Cognition: memory grossly intact, attention grossly intact, language grossly intact Intelligence estimated to be: average Insight: impaired Judgement: impaired Impression We have not been able to find a rehab to accept the patient. We have been in contact with his PO who will be revoking his probation which will mean that the patient will [place] going [facility]. We have been in contact with [facility] twice to ask for a taper schedule for methadone given that the [place] [facility] will not prescribe methadone, but we have yet to receive a return call. He is anxious about going to [facility] and going through withdrawal, but appears to be coping. Although he reports SI, he denies P/I and so would not be a reason to prevent him from moving forward to [facility] [facility]. We would like to take the weekend to begin the taper process if we can receive instructions from [facility]. Product information indicates that hospitalized patients could be tapered at 20% per day. we will continue his meds until we hear from [facility]. Plan (1) Suicidal ideation Suicide checks for safety. Attend groups and work on safety plan. Family meeting with girlfriend whom he lives with. 03/30 - patient feels safe as long as he is in the hospital or rehab, denies plan or intent to harm himself at this time, but would not feel safe going home at this time. 03/31 -Continue current meds - Has SI but not P/I. Likely going to [place] [facility] upon discharge (2) Major depressive disorder, recurrent severe without psychotic features Noncompliance with OP f/u and meds. Resume escitalopram 20mg qam, trazodone 150mg qhs, and prazosin at home doses. Will need re-referred for OP care. 03/30 - re-referred to [facility] for med management. Exploring rehab. (3) PTSD (post-traumatic stress disorder) Resume prazosin and escitalopram. (4) Opiate dependence Dose confirmed with [facility], will order as solution here to decrease abuse potential/cheeking. Will coordinate care with therapist Millicent given ongoing substance abuse. 03/30 - Coordinated care with his counselor, Millicent, at [facility] - he has been poorly compliant with treatment there, has had multiple drug screens positive for amphetamines, but did not disclose his meth abuse to them. They have recommended inpatient rehab, but he did not follow through on the referral. She also stated he has a DUI hearing this week and expects he will go [facility]. - Ask patient to allow coordination with his PO regarding his legal issues. 03/31 - Have left 2 messages with [facility] regarding request for taper schedule in view of likely [facility] at discharge. ADD: In view of no response from [facility], we have consulted with our pharmacy regarding methadone tapering. We are agreed that it is in the best interest of the patient to start tapering methadone starting tomorrow AM in view of the fact he may be going to [facility] as soon as Monday or Monday, where he will get no methadone at all. Dr. Israel has consulted with Dr. Nichols, Pain Management, who suggests that reducing by 25% would be reasonable at this time. Will therefore reduce methadone to 90 mg. daily starting tomorrow. (5) Amphetamine abuse Patient admits to abusing meth and Ritalin, which he is taking from his girlfriend's son. Recommend inpatient rehab, which he is willing for. CYS report made via [employer] due to patient's abusing his girlfriend's child's stimulants (made to April, [id number]). 03/30 - He remains willing for rehab, and referrals are being made. (6) Antisocial personality disorder Maintain consistent boundaries. Recommend OP therapy. 03/31 - Assist the patient look at his behaviors and how he can make better choices in the future (7) Tobacco use disorder Smoke 1/2 PPD. Educated about risks of ongoing use and will provide patch and gum for cravings here. (8) Cannabis use disorder, mild, abuse Discharge / Aftercare Planning Primary Care Physician: Name: Dr. Amin Therapist: Name: none Probe Operator: Name: Rossi Maldonado Visit Code E&M Code: 79910 Inventory Assets Strengths: has children, willing for rehab Risk Factors Assessment Male: Yes : Yes /single/: No Higher / Fall in social status: No Health problems: Yes Mental Health Diagnoses: Yes Substance use disorders: Yes Previous attempt: Yes Previous psychiatric stay: Yes Hopelessness: Yes Smoker: Yes Protective Factors Assessment Jain beliefs: Yes : No Responsible for young children: Yes Employed: No Stable relationships: Yes Supportive family: No Good rapport with provider: No (noncompliant with outpatient treatment) Data Vital Signs Last 24 Hrs: Date Time Temp Pulse Resp B/P (MAP) Pulse Ox O2 Delivery O2 Flow Rate FiO2 03/31/17 06:48 36.5 49 18 128/85 64 129/88 Meds Administered Last 24 Hrs: Meds Administered (Past 24Hrs) Medications (Trade) Dose Ordered Sig/Jaime Route Start Time Stop Time Status Last Admin Dose Admin Escitalopram Oxalate (Lexapro Tab) 20 mg DAILY PO 03/30/17 09:00 04/29/17 08:59 03/31/17 08:16 20 MG Trazodone HCl (Desyrel Tab) 150 mg HS PO 03/29/17 22:00 04/28/17 21:59 03/30/17 22:12 150 MG Methadone HCl (Methadone HCl) 120 mg QAM PO 03/30/17 09:00 04/13/17 08:59 03/31/17 08:16 120 MG Lab Results Last 24 Hrs: 03/28/17 21:52 Red Blood Count 4.25, Mean Corpuscular Volume 92.5, Mean Corpuscular Hemoglobin 31.3, Mean Corpuscular Hemoglobin Concent 33.8, Mean Platelet Volume 9.3, Neutrophils (%) (Auto) 46.5, Lymphocytes (%) (Auto) 42.8, Monocytes (%) (Auto) 8.5, Eosinophils (%) (Auto) 1.4, Basophils (%) (Auto) 0.4, Neutrophils # (Auto) 5.02, Lymphocytes # (Auto) 4.60, Monocytes # (Auto) 0.91, Eosinophils # (Auto) 0.15, Basophils # (Auto) 0.04 03/28/17 21:52 Test 03/28/17 21:15 03/28/17 21:52 03/28/17 21:58 Urine Color YELLOW Urine Appearance CLEAR (CLEAR) Urine pH 5.0 (4.5-7.5) Urine Specific [place] 1.026 (1.000-1.030) Urine Protein NEG (NEG) Urine Glucose (UA) NEG (NEG) Urine Ketones TRACE (NEG) Urine Occult Blood NEG (NEG) Urine Nitrite NEG (NEG) Urine Bilirubin NEG (NEG) Urine Urobilinogen NEG (NEG) Urine Leukocyte Esterase NEG (NEG) White Blood Count 10.76 K/uL (4.8-10.8) Red Blood Count 4.25 M/uL (4.7-6.1) Hemoglobin 13.3 g/dL (14.0-18.0) Hematocrit 39.3 % (42-52) Mean Corpuscular Volume 92.5 fL (80-100) Mean Corpuscular Hemoglobin 31.3 pg (25-34) Mean Corpuscular Hemoglobin Concent 33.8 g/dl (32-36) Platelet Count 229 K/uL (130-400) Mean Platelet Volume 9.3 fL (7.4-10.4) Neutrophils (%) (Auto) 46.5 % Lymphocytes (%) (Auto) 42.8 % Monocytes (%) (Auto) 8.5 % Eosinophils (%) (Auto) 1.4 % Basophils (%) (Auto) 0.4 % Neutrophils # (Auto) 5.02 K/uL (1.4-6.5) Lymphocytes # (Auto) 4.60 K/uL (1.2-3.4) Monocytes # (Auto) 0.91 K/uL (0.11-0.59) Eosinophils # (Auto) 0.15 K/uL (0-0.5) Basophils # (Auto) 0.04 K/uL (0-0.2) RDW Standard Deviation 46.3 fL (36.4-46.3) RDW Coefficient of Variation 13.7 % (11.5-14.5) Immature Granulocyte % (Auto) 0.4 % Immature Granulocyte # (Auto) 0.04 K/uL (0.00-0.02) Anion Gap 5.0 mmol/L (3-11) Est Creatinine Clear Calc Drug Dose 83.0 ml/min Estimated GFR () 74.9 Estimated GFR (Non- 64.6 BUN/Creatinine Ratio 7.5 (10-20) Calcium Level 8.9 mg/dl (8.5-10.1) Total Bilirubin 0.3 mg/dl (0.2-1) Direct Bilirubin < 0.1 mg/dl (0-0.2) Aspartate Amino Transf (AST/SGOT) 41 U/L (15-37) Alanine Aminotransferase (ALT/SGPT) 83 U/L (12-78) Alkaline Phosphatase 59 U/L (45-117) Total Protein 7.1 gm/dl (6.4-8.2) Albumin 3.3 gm/dl (3.4-5.0) Globulin 3.8 gm/dl (2.5-4.0) Albumin/Globulin Ratio 0.9 (0.9-2) Thyroid Stimulating Hormone (TSH) 4.330 uIu/ml (0.300-4.500) Salicylates Level 1.8 mg/dl (2.8-20) Acetaminophen Level < 2 ug/ml (10-30) Ethyl Alcohol mg/dL < 3.0 mg/dl (0-3) Urine Opiates Screen NEG (NEG) Urine Methadone, Qualitative POS (NEG) Urine Barbiturates NEG (NEG) Urine Phencyclidine (PCP) Level NEG (NEG) Ur Amphetamine/Methamphetamine POS (NEG) MDMA (Ecstasy) Screen POS (NEG) Urine Benzodiazepines Screen NEG (NEG) Urine Cocaine Metabolite NEG (NEG) Urine Marijuana (THC) NEG (NEG)
[2017-03-31] MEDS ORDERED: LOPERAMIDE HCL 2 MG CAP PO PRN (12:30)
[2017-03-31] MEDS: TRAZODONE HCL 50 MG TAB PO SCH (22:14)
[2017-04-01 06:54] VITALS: BP_SYST 124; BP_SYST 127; BP_DIAS 79; BP_DIAS 83; PULSE 50; PULSE 59; TEMP 36.5
[2017-04-01 08:28] VITALS: BP 135/96; PULSE 97
[2017-04-01] MEDS: CLONIDINE HCL 0.1 MG TAB PO SCH ×2 (08:30→21:03)
[2017-04-01] MEDS: PRAZOSIN HCL 1 MG CAP PO SCH ×2 (08:31→21:04)
[2017-04-01] MEDS: ESCITALOPRAM OXALATE 20 MG TAB PO SCH (08:31)
[2017-04-01] MEDS: METHADONE ORAL SOLN 2 MG/1ML PO SCH (08:34)
[2017-04-01] MEDS ORDERED: METHADONE HCL 10 MG TAB PO SCH (09:00)
[2017-04-01] MEDS: IBUPROFEN 600 MG TAB PO PRN (09:34)
--- NOTE | 2017-04-01 09:40 | Psychiatric Progress Notes ---
Progress Note Date of Service Apr 01, 2017. Interval History Michael Napoles is a 36-year-old male who currently lives in [place], has a history of depression, PTSD, polysubstance abuse, and antisocial personality disorder who was admitted on a 201 voluntary commitment for depression and suicidality. He was assessed at home by [facility] and referred for admission. Chief Complaint "OK". Subjective Patient was seen & assessed interval progress reviewed with Treatment Team. Patient starts methadone taper today and is anxious about withdrawal. He says he is trying to maintain a "positive outlook" moving forward. he is aware that his probation has been revoked and that he will be going to [facility] upon discharge. His mood is "OK" and today is denying SI. He denies hallucinations and at present, denies any withdrawal symptoms. He again says that he is grateful for the help he is receiving. Review of Systems Constitutional: No fever, No chills, No sweats, No weight loss, No weakness, No fatigue, No problem reported ENT: No hearing loss, No unusual epistaxis, No nasal symptoms, No sore throat, No tinnitus, No dental problems, No trouble swallowing, No problem reported Respiratory: No cough, No sputum, No wheezing, No shortness of breath, No dyspnea on exertion, No dyspnea at rest, No hemoptysis, No problem reported Cardiovascular: No chest pain, No orthopnea, No PND, No edema, No claudication , No palpitations, No problem reported Abdomen: No pain, No nausea, No vomiting, No diarrhea, No constipation, No GI bleeding, No problem reported Musculoskeletal: No joint pain, No muscle pain, No swelling, No calf pain, No problem reported Neurologic: No memory loss, No paralysis, No weakness, No numbness/tingling, No vertigo, No balance problems, No problem reported Psychiatric: + depression symptoms Integumentary: No rash, No itch, No new/changing skin lesions, No color change , No bleeding, No problem reported Sleep Information Total Hours of Sleep: 7.00 Meal Information Percent of Breakfast Consumed: 80 Percent of Lunch Consumed: 90 Percent of Dinner Consumed: 100 Mental Status Exam During interview pt is: alert and oriented, cooperative Appearance: disheveled, other (obese, dressed in scrub pants, long hair which is unkempt, tattoos on bilater forearms, malodorous) Eye contact is: fair Motor behavior is: steady gait & station, no abnormal motor movements Speech: normal in rate, rhythm & volume Affect: mood congruent, depressed, flat Mood is: depressed Thought process: goal directed Thought content: reality based without delusions Suicidal thought are: present, Intent: denied Homicidal thoughts are: denied Hallucinations: denies auditory, denies visual Cognition: memory grossly intact, attention grossly intact, language grossly intact Intelligence estimated to be: average Insight: impaired Judgement: impaired Impression In view of the patient going to fdc where he will be abruptly discontinued from methadone, we have started a taper, cutting his dose by 25%. We will manage symptoms with prn meds already written. Today he is not suicidal, and is aware that he will be going to fdc this week. We will continue meds as they are for now. Plan (1) Suicidal ideation Suicide checks for safety. Attend groups and work on safety plan. Family meeting with girlfriend whom he lives with. 03/30 - patient feels safe as long as he is in the hospital or rehab, denies plan or intent to harm himself at this time, but would not feel safe going home at this time. 03/31 -Continue current meds - Has SI but not P/I. Likely going to fdc upon discharge (2) Major depressive disorder, recurrent severe without psychotic features Noncompliance with OP f/u and meds. Resume escitalopram 20mg qam, trazodone 150mg qhs, and prazosin at home doses. Will need re-referred for OP care. 03/30 - re-referred to [facility] for med management. Exploring rehab. 04/01 - Continue current meds (3) PTSD (post-traumatic stress disorder) Resume prazosin and escitalopram. (4) Opiate dependence Dose confirmed with [facility], will order as solution here to decrease abuse potential/cheeking. Will coordinate care with therapist Millicent given ongoing substance abuse. 03/30 - Coordinated care with his counselor, Millicent, at [facility] - he has been poorly compliant with treatment there, has had multiple drug screens positive for amphetamines, but did not disclose his meth abuse to them. They have recommended inpatient rehab, but he did not follow through on the referral. She also stated he has a DUI hearing this week and expects he will go to fdc. - Ask patient to allow coordination with his PO regarding his legal issues. 03/31 - Have left 2 messages with [facility] regarding request for taper schedule in view of likely fdc at discharge. ADD: In view of no response from [facility], we have consulted with our pharmacy regarding methadone tapering. We are agreed that it is in the best interest of the patient to start tapering methadone starting tomorrow AM in view of the fact he may be going to fdc as soon as Monday or Monday, where he will get no methadone at all. Dr. Israel has consulted with Dr. Nichols, Pain Management, who suggests that reducing by 25% would be reasonable at this time. Will therefore reduce methadone to 90 mg. daily starting tomorrow. 04/01 - Methadone taper starts today. Will medicate withdrawal symptoms prn. (5) Amphetamine abuse Patient admits to abusing meth and Ritalin, which he is taking from his girlfriend's son. Recommend inpatient rehab, which he is willing for. CYS report made via [employer] due to patient's abusing his girlfriend's child's stimulants (made to April, [id number]). 03/30 - He remains willing for rehab, and referrals are being made. (6) Antisocial personality disorder Maintain consistent boundaries. Recommend OP therapy. 03/31 - Assist the patient look at his behaviors and how he can make better choices in the future (7) Tobacco use disorder Smoke 1/2 PPD. Educated about risks of ongoing use and will provide patch and gum for cravings here. (8) Cannabis use disorder, mild, abuse Discharge / Aftercare Planning Primary Care Physician: Name: Dr. Amin Therapist: Name: none Region Manager: Name: Rossi Maldonado Visit Code E&M Code: 73018 Inventory Assets Strengths: has children, willing for rehab Risk Factors Assessment Male: Yes : Yes /single/: No Higher / Fall in social status: No Health problems: Yes Mental Health Diagnoses: Yes Substance use disorders: Yes Previous attempt: Yes Previous psychiatric stay: Yes Hopelessness: Yes Smoker: Yes Protective Factors Assessment Muslim beliefs: Yes : No Responsible for young children: Yes Employed: No Stable relationships: Yes Supportive family: No Good rapport with provider: No (noncompliant with outpatient treatment) Data Vital Signs Last 24 Hrs: Date Time Temp Pulse Resp B/P (MAP) Pulse Ox O2 Delivery O2 Flow Rate FiO2 04/01/17 08:28 97 135/96 04/01/17 06:54 36.5 50 15 124/79 59 127/83 Meds Administered Last 24 Hrs: Meds Administered (Past 24Hrs) Medications (Trade) Dose Ordered Sig/Jaime Route Start Time Stop Time Status Last Admin Dose Admin Methadone HCl (Methadone HCl) 90 mg QAM PO 04/01/17 09:00 04/15/17 08:59 04/01/17 08:34 90 MG Clonidine HCl (Catapres Tab) 0.2 mg BID PO 04/01/17 09:00 05/01/17 08:59 04/01/17 08:30 0.2 MG Lab Results Last 24 Hrs: 03/28/17 21:52 Red Blood Count 4.25, Mean Corpuscular Volume 92.5, Mean Corpuscular Hemoglobin 31.3, Mean Corpuscular Hemoglobin Concent 33.8, Mean Platelet Volume 9.3, Neutrophils (%) (Auto) 46.5, Lymphocytes (%) (Auto) 42.8, Monocytes (%) (Auto) 8.5, Eosinophils (%) (Auto) 1.4, Basophils (%) (Auto) 0.4, Neutrophils # (Auto) 5.02, Lymphocytes # (Auto) 4.60, Monocytes # (Auto) 0.91, Eosinophils # (Auto) 0.15, Basophils # (Auto) 0.04 03/28/17 21:52 Test 03/28/17 21:15 03/28/17 21:52 03/28/17 21:58 Urine Color YELLOW Urine Appearance CLEAR (CLEAR) Urine pH 5.0 (4.5-7.5) Urine Specific [place] 1.026 (1.000-1.030) Urine Protein NEG (NEG) Urine Glucose (UA) NEG (NEG) Urine Ketones TRACE (NEG) Urine Occult Blood NEG (NEG) Urine Nitrite NEG (NEG) Urine Bilirubin NEG (NEG) Urine Urobilinogen NEG (NEG) Urine Leukocyte Esterase NEG (NEG) White Blood Count 10.76 K/uL (4.8-10.8) Red Blood Count 4.25 M/uL (4.7-6.1) Hemoglobin 13.3 g/dL (14.0-18.0) Hematocrit 39.3 % (42-52) Mean Corpuscular Volume 92.5 fL (80-100) Mean Corpuscular Hemoglobin 31.3 pg (25-34) Mean Corpuscular Hemoglobin Concent 33.8 g/dl (32-36) Platelet Count 229 K/uL (130-400) Mean Platelet Volume 9.3 fL (7.4-10.4) Neutrophils (%) (Auto) 46.5 % Lymphocytes (%) (Auto) 42.8 % Monocytes (%) (Auto) 8.5 % Eosinophils (%) (Auto) 1.4 % Basophils (%) (Auto) 0.4 % Neutrophils # (Auto) 5.02 K/uL (1.4-6.5) Lymphocytes # (Auto) 4.60 K/uL (1.2-3.4) Monocytes # (Auto) 0.91 K/uL (0.11-0.59) Eosinophils # (Auto) 0.15 K/uL (0-0.5) Basophils # (Auto) 0.04 K/uL (0-0.2) RDW Standard Deviation 46.3 fL (36.4-46.3) RDW Coefficient of Variation 13.7 % (11.5-14.5) Immature Granulocyte % (Auto) 0.4 % Immature Granulocyte # (Auto) 0.04 K/uL (0.00-0.02) Anion Gap 5.0 mmol/L (3-11) Est Creatinine Clear Calc Drug Dose 83.0 ml/min Estimated GFR () 74.9 Estimated GFR (Non- 64.6 BUN/Creatinine Ratio 7.5 (10-20) Calcium Level 8.9 mg/dl (8.5-10.1) Total Bilirubin 0.3 mg/dl (0.2-1) Direct Bilirubin < 0.1 mg/dl (0-0.2) Aspartate Amino Transf (AST/SGOT) 41 U/L (15-37) Alanine Aminotransferase (ALT/SGPT) 83 U/L (12-78) Alkaline Phosphatase 59 U/L (45-117) Total Protein 7.1 gm/dl (6.4-8.2) Albumin 3.3 gm/dl (3.4-5.0) Globulin 3.8 gm/dl (2.5-4.0) Albumin/Globulin Ratio 0.9 (0.9-2) Thyroid Stimulating Hormone (TSH) 4.330 uIu/ml (0.300-4.500) Salicylates Level 1.8 mg/dl (2.8-20) Acetaminophen Level < 2 ug/ml (10-30) Ethyl Alcohol mg/dL < 3.0 mg/dl (0-3) Urine Opiates Screen NEG (NEG) Urine Methadone, Qualitative POS (NEG) Urine Barbiturates NEG (NEG) Urine Phencyclidine (PCP) Level NEG (NEG) Ur Amphetamine/Methamphetamine POS (NEG) MDMA (Ecstasy) Screen POS (NEG) Urine Benzodiazepines Screen NEG (NEG) Urine Cocaine Metabolite NEG (NEG) Urine Marijuana (THC) NEG (NEG)
--- NOTE | 2017-04-01 10:04 | Psych Management Progress Note ---
Psychiatry Miscellaneous Date of Service: Apr 01, 2017. Patient seen, MS assessed. Rates mood as a 4 due to anxious anticipation of methadone taper. Cooperative with care and treatment plan as outlined by [facility]. Participating in groups this am. Note: methadone taper by 25% per week initiated this am. Reviewed case with outpatient prescriber Dr. Ochoa late yesterday afternoon who initially recommended decrease of 5-10 mg/week. Informed prescriber that patient will most likely be discharged to nursing home, no rehab available for several weeks, agreed that more aggressive taper in patient's best interest given that it will not be prescribed in nursing home and anticipate more abrupt discontinuation there. Prescriber did not comment on longer term plan if he remained in care at [facility] given multiple positive drug screens for controlled substances.
[2017-04-01 10:32] VITALS: BP 112/72; PULSE 61
[2017-04-01 12:34] LABS: METHADONE METABOLITE 23800 NG/ML (CUTOFF=100); METHADONE VERIFIC 34100 NG/ML (CUTOFF=100)
[2017-04-01 14:30] VITALS: BP 108/68; PULSE 48
[2017-04-01 19:56] VITALS: BP 135/92; PULSE 51
[2017-04-01] MEDS: DICYCLOMINE HCL 20 MG TAB PO PRN (21:03)
[2017-04-01] MEDS: TRAZODONE HCL 50 MG TAB PO SCH (21:03)
[2017-04-02 06:56] VITALS: BP_SYST 109; BP_SYST 114; BP_DIAS 74; BP_DIAS 77; PULSE 43; PULSE 65; TEMP 36.6
[2017-04-02] MEDS: ESCITALOPRAM OXALATE 20 MG TAB PO SCH (08:41)
[2017-04-02] MEDS: PRAZOSIN HCL 1 MG CAP PO SCH ×2 (08:41→21:25)
[2017-04-02] MEDS: METHADONE ORAL SOLN 2 MG/1ML PO SCH (08:44)
--- NOTE | 2017-04-02 08:44 | Psychiatric Progress Notes ---
Progress Note Date of Service Apr 02, 2017. Interval History Michael Napoles is a 36-year-old male who currently lives in [place], has a history of depression, PTSD, polysubstance abuse, and antisocial personality disorder who was admitted on a 201 voluntary commitment for depression and suicidality. He was assessed at home by [facility] and referred for admission. Chief Complaint "I'm OK". Subjective Patient was seen & assessed interval progress reviewed with Treatment Team. The patient says that he is doing OK. He is denying withdrawal symptoms today and is asking for the next dosage reduction. He did have sweats and aches last evening, and felt tired having a difficult time getting out of bed. He says that he is trying to do his best, denies SI. In groups yesterday, the staff said that he did a good job participating and was voicing his commitment to going to halfway, stopping drugs and doing better for his son. He denies aud/vis hallucinations. Review of Systems Constitutional: + fatigue ENT: No hearing loss, No unusual epistaxis, No nasal symptoms, No sore throat, No tinnitus, No dental problems, No trouble swallowing, No problem reported Respiratory: No cough, No sputum, No wheezing, No shortness of breath, No dyspnea on exertion, No dyspnea at rest, No hemoptysis, No problem reported Cardiovascular: No chest pain, No orthopnea, No PND, No edema, No claudication , No palpitations, No problem reported Abdomen: No pain, No nausea, No vomiting, No diarrhea, No constipation, No GI bleeding, No problem reported Musculoskeletal: + muscle pain Neurologic: No memory loss, No paralysis, No weakness, No numbness/tingling, No vertigo, No balance problems, No problem reported Psychiatric: + depression symptoms Integumentary: No rash, No itch, No new/changing skin lesions, No color change , No bleeding, No problem reported Sleep Information Total Hours of Sleep: 7.50 Meal Information Percent of Breakfast Consumed: 80 Percent of Lunch Consumed: 100 Percent of Dinner Consumed: 90 Mental Status Exam During interview pt is: alert and oriented, cooperative Appearance: disheveled, other (obese, dressed in scrub pants, long hair which is unkempt, tattoos on bilater forearms, malodorous) Eye contact is: fair Motor behavior is: steady gait & station, no abnormal motor movements Speech: normal in rate, rhythm & volume Affect: mood congruent, depressed, flat Mood is: depressed Thought process: goal directed Thought content: reality based without delusions Suicidal thought are: present, Intent: denied Homicidal thoughts are: denied Hallucinations: denies auditory, denies visual Cognition: memory grossly intact, attention grossly intact, language grossly intact Intelligence estimated to be: average Insight: impaired Judgement: impaired Impression In view of the patient going to halfway where he will be abruptly discontinued from methadone, we have started a taper, cutting his dose by 25%. He is asking for further taper, but will wait another 24 hrs in deference to the long half life. Is not suicidal again today, and we anticipate that he will be able to discharge on Monday or Monday. Plan (1) Suicidal ideation Suicide checks for safety. Attend groups and work on safety plan. Family meeting with girlfriend whom he lives with. 03/30 - patient feels safe as long as he is in the hospital or rehab, denies plan or intent to harm himself at this time, but would not feel safe going home at this time. 03/31 -Continue current meds - Has SI but not P/I. Likely going to halfway upon discharge (2) Major depressive disorder, recurrent severe without psychotic features Noncompliance with OP f/u and meds. Resume escitalopram 20mg qam, trazodone 150mg qhs, and prazosin at home doses. Will need re-referred for OP care. 03/30 - re-referred to [facility] for med management. Exploring rehab. 04/01 - Continue current meds (3) PTSD (post-traumatic stress disorder) Resume prazosin and escitalopram. (4) Opiate dependence Dose confirmed with [facility], will order as solution here to decrease abuse potential/cheeking. Will coordinate care with therapist Millicent given ongoing substance abuse. 03/30 - Coordinated care with his counselor, Millicent, at [facility] - he has been poorly compliant with treatment there, has had multiple drug screens positive for amphetamines, but did not disclose his meth abuse to them. They have recommended inpatient rehab, but he did not follow through on the referral. She also stated he has a DUI hearing this week and expects he will go to halfway. - Ask patient to allow coordination with his PO regarding his legal issues. 03/31 - Have left 2 messages with [facility] regarding request for taper schedule in view of likely halfway at discharge. ADD: In view of no response from [facility], we have consulted with our pharmacy regarding methadone tapering. We are agreed that it is in the best interest of the patient to start tapering methadone starting tomorrow AM in view of the fact he may be going to halfway as soon as Monday or Monday, where he will get no methadone at all. Dr. Israel has consulted with Dr. Nichols, Pain Management, who suggests that reducing by 25% would be reasonable at this time. Will therefore reduce methadone to 90 mg. daily starting tomorrow. 04/01 - Methadone taper starts today. Will medicate withdrawal symptoms prn. 04/02 - Tolerating taper with minimal withdrawal symptoms - Is asking for further taper but will wait til tomorrow (5) Amphetamine abuse Patient admits to abusing meth and Ritalin, which he is taking from his girlfriend's son. Recommend inpatient rehab, which he is willing for. CYS report made via [employer] due to patient's abusing his girlfriend's child's stimulants (made to April, ID#[id number]). 03/30 - He remains willing for rehab, and referrals are being made. (6) Antisocial personality disorder Maintain consistent boundaries. Recommend OP therapy. 03/31 - Assist the patient look at his behaviors and how he can make better choices in the future (7) Tobacco use disorder Smoke 1/2 PPD. Educated about risks of ongoing use and will provide patch and gum for cravings here. (8) Cannabis use disorder, mild, abuse Discharge / Aftercare Planning Primary Care Physician: Name: Dr. Amin Therapist: Name: none Sales Force Developer: Name: Rossi Maldonado Visit Code E&M Code: 35414 Inventory Assets Strengths: has children, willing for rehab Risk Factors Assessment Male: Yes : Yes /single/: No Higher / Fall in social status: No Health problems: Yes Mental Health Diagnoses: Yes Substance use disorders: Yes Previous attempt: Yes Previous psychiatric stay: Yes Hopelessness: Yes Smoker: Yes Protective Factors Assessment Religion beliefs: Yes : No Responsible for young children: Yes Employed: No Stable relationships: Yes Supportive family: No Good rapport with provider: No (noncompliant with outpatient treatment) Data Vital Signs Last 24 Hrs: Date Time Temp Pulse Resp B/P (MAP) Pulse Ox O2 Delivery O2 Flow Rate FiO2 04/02/17 06:56 36.6 43 20 114/77 65 109/74 04/01/17 19:56 51 16 135/92 04/01/17 14:30 48 14 108/68 48 04/01/17 10:32 61 112/72 Meds Administered Last 24 Hrs: Meds Administered (Past 24Hrs) Medications (Trade) Dose Ordered Sig/Jaime Route Start Time Stop Time Status Last Admin Dose Admin Methadone HCl (Methadone HCl) 90 mg QAM PO 04/01/17 09:00 04/15/17 08:59 04/01/17 08:34 90 MG Clonidine HCl (Catapres Tab) 0.2 mg BID PO 04/01/17 09:00 05/01/17 08:59 04/01/17 21:03 0.2 MG Loperamide HCl (Imodium Cap) 2 mg UD PRN PO 03/31/17 12:30 04/30/17 12:29 04/01/17 09:34 2 MG Dicyclomine HCl (Bentyl Tab) 20 mg QID PRN PO 03/31/17 12:30 04/30/17 12:29 04/01/17 21:03 20 MG Ibuprofen (Motrin Tab) 600 mg Q4H PRN PO 03/31/17 12:30 04/30/17 12:29 04/01/17 09:34 600 MG Lab Results Last 24 Hrs: 03/28/17 21:52 Red Blood Count 4.25, Mean Corpuscular Volume 92.5, Mean Corpuscular Hemoglobin 31.3, Mean Corpuscular Hemoglobin Concent 33.8, Mean Platelet Volume 9.3, Neutrophils (%) (Auto) 46.5, Lymphocytes (%) (Auto) 42.8, Monocytes (%) (Auto) 8.5, Eosinophils (%) (Auto) 1.4, Basophils (%) (Auto) 0.4, Neutrophils # (Auto) 5.02, Lymphocytes # (Auto) 4.60, Monocytes # (Auto) 0.91, Eosinophils # (Auto) 0.15, Basophils # (Auto) 0.04 03/28/17 21:52 Test 03/28/17 21:15 03/28/17 21:52 03/28/17 21:58 Urine Color YELLOW Urine Appearance CLEAR (CLEAR) Urine pH 5.0 (4.5-7.5) Urine Specific [place] 1.026 (1.000-1.030) Urine Protein NEG (NEG) Urine Glucose (UA) NEG (NEG) Urine Ketones TRACE (NEG) Urine Occult Blood NEG (NEG) Urine Nitrite NEG (NEG) Urine Bilirubin NEG (NEG) Urine Urobilinogen NEG (NEG) Urine Leukocyte Esterase NEG (NEG) White Blood Count 10.76 K/uL (4.8-10.8) Red Blood Count 4.25 M/uL (4.7-6.1) Hemoglobin 13.3 g/dL (14.0-18.0) Hematocrit 39.3 % (42-52) Mean Corpuscular Volume 92.5 fL (80-100) Mean Corpuscular Hemoglobin 31.3 pg (25-34) Mean Corpuscular Hemoglobin Concent 33.8 g/dl (32-36) Platelet Count 229 K/uL (130-400) Mean Platelet Volume 9.3 fL (7.4-10.4) Neutrophils (%) (Auto) 46.5 % Lymphocytes (%) (Auto) 42.8 % Monocytes (%) (Auto) 8.5 % Eosinophils (%) (Auto) 1.4 % Basophils (%) (Auto) 0.4 % Neutrophils # (Auto) 5.02 K/uL (1.4-6.5) Lymphocytes # (Auto) 4.60 K/uL (1.2-3.4) Monocytes # (Auto) 0.91 K/uL (0.11-0.59) Eosinophils # (Auto) 0.15 K/uL (0-0.5) Basophils # (Auto) 0.04 K/uL (0-0.2) RDW Standard Deviation 46.3 fL (36.4-46.3) RDW Coefficient of Variation 13.7 % (11.5-14.5) Immature Granulocyte % (Auto) 0.4 % Immature Granulocyte # (Auto) 0.04 K/uL (0.00-0.02) Anion Gap 5.0 mmol/L (3-11) Est Creatinine Clear Calc Drug Dose 83.0 ml/min Estimated GFR () 74.9 Estimated GFR (Non- 64.6 BUN/Creatinine Ratio 7.5 (10-20) Calcium Level 8.9 mg/dl (8.5-10.1) Total Bilirubin 0.3 mg/dl (0.2-1) Direct Bilirubin < 0.1 mg/dl (0-0.2) Aspartate Amino Transf (AST/SGOT) 41 U/L (15-37) Alanine Aminotransferase (ALT/SGPT) 83 U/L (12-78) Alkaline Phosphatase 59 U/L (45-117) Total Protein 7.1 gm/dl (6.4-8.2) Albumin 3.3 gm/dl (3.4-5.0) Globulin 3.8 gm/dl (2.5-4.0) Albumin/Globulin Ratio 0.9 (0.9-2) Thyroid Stimulating Hormone (TSH) 4.330 uIu/ml (0.300-4.500) Salicylates Level 1.8 mg/dl (2.8-20) Acetaminophen Level < 2 ug/ml (10-30) Ethyl Alcohol mg/dL < 3.0 mg/dl (0-3) Urine Opiates Screen NEG (NEG) Urine Methadone, Qualitative POS (NEG) Urine Methadone Metabolites [id number] NG/ML ([id number]) Urine Methadone Confirm [id number] NG/ML ([id number]) Urine Barbiturates NEG (NEG) Urine Phencyclidine (PCP) Level NEG (NEG) Urine Amphetamines Confirmation [id number] NG/ML ([id number]) Ur Amphetamine/Methamphetamine POS (NEG) Urine Methamphetamine Confirmation [id number] NG/ML ([id number]) Urine MDE-amphetamine (MDEA) negative Ur Methylenedioxyamphetamine (MDA) negative MDMA (Ecstasy) Screen POS (NEG) Methylenedioxymethamphetamine (MDMA negative Urine Benzodiazepines Screen NEG (NEG) Urine Cocaine Metabolite NEG (NEG) Urine Marijuana (THC) NEG (NEG)
[2017-04-02 08:45] VITALS: BP 127/86; PULSE 60
[2017-04-02] MEDS: DICYCLOMINE HCL 20 MG TAB PO PRN (08:45)
[2017-04-02] MEDS: CLONIDINE HCL 0.1 MG TAB PO SCH ×2 (08:45→21:26)
[2017-04-02] MEDS: IBUPROFEN 600 MG TAB PO PRN (08:51)
--- NOTE | 2017-04-02 10:01 | Psychiatric Progress Notes ---
Psychiatric Progress Note Date of Service Apr 02, 2017. Notes case reviewed as collaborator for RAY certification and selection specialist as patient is requesting more rapid methadone taper. He understands the risks and treatment team feels taper as far as possible during inpatient is in his best interest given typical practices of prisons when admitting person's on methadone. Case reviewed with Dr. Fields (partner and active medical staff) given his extensive experience in inpatient rehab settings. Prisons don't allow methadone maintenance so generally provide rapid tapers upon entry while other provide only symptomatic treatment for withdrawal depending on the medical social worker's preferences/ assessment of an inmate. In his experience, tapers are surprisingly well tolerated until doses between 40-60 mg and then slower tapers are typical once dose is 40 mg or below. Reviewed that in this patient our team is concerned about exacerbation of his depression, particularly suicidal ideation if he experiences severe withdrawal. If patient is stable for discharge to supervised setting of [facility] tomorrow, would suggest recommend discharge dose of 60 mg (50% dose reduction from admission) with taper at discretion of treating physician. Patient is aware that we cannot guarantee treating physician will follow our recommendations. [facility] to be updated on status of taper at discharge.
[2017-04-02] MEDS: TRAZODONE HCL 50 MG TAB PO SCH (21:25)
[2017-04-02 21:34] VITALS: BP 118/74; PULSE 56
[2017-04-03 06:49] VITALS: BP_SYST 116; BP_SYST 128; BP_DIAS 73; BP_DIAS 80; PULSE 41; PULSE 59; TEMP 36.3
[2017-04-03] MEDS ORDERED: METHADONE ORAL SOLN 2 MG/1ML PO SCH (09:00)
[2017-04-03] MEDS ORDERED: CTP1 PO (09:42)
[2017-04-03 09:47] VITALS: BP 108/75; PULSE 88
[2017-04-03] MEDS: CLONIDINE HCL 0.1 MG TAB PO SCH (09:48)
[2017-04-03] MEDS: PRAZOSIN HCL 1 MG CAP PO SCH (09:48)
[2017-04-03] MEDS: ESCITALOPRAM OXALATE 20 MG TAB PO SCH (09:48)
[2017-04-03] MEDS: DICYCLOMINE HCL 20 MG TAB PO PRN (09:50)
[2017-04-03] MEDS: IBUPROFEN 600 MG TAB PO PRN (09:52)
--- NOTE | 2017-04-03 10:02 | Discharge Instructions ---
Discharge Information Report Includes Report will include the: Discharge Instructions & Summary Admission Admission Date / Time: Mar 28, 2017 at 23:52 Reason for Admission: Major Depression Recurrent Discharge Discharge Diagnosis / Problem: Depression, methamphetamine abuse, antisocial personality disorder Condition at Discharge: Fair Discharge Goals Goal(s): Improve function, Improve disease control, Learn about illness, Therapeutic intervention, Specific goals (taper methadone prior to transfer to [facility].) Activity Recommendations Activity Limitations: per Instructions/Follow-up section . Instructions / Follow-Up Instructions / Follow-Up . SPECIAL CARE INSTRUCTIONS: 1. Follow through with your scheduled aftercare appointments. If unable to keep an appointment, please call to reschedule. 2. Take your medication only as prescribed. Medication should not be changed or stopped without the approval of your doctor. In the event of worsening symptoms or concerns about side effects, contact your doctor immediately. 3. Utilize new healthy coping skills, anger management skills, and stress management skills learned during your hospitalization. Journal feelings and process them with a support person. Identify stressors or situations that may result in relapse, deterioration or inappropriate behaviors and develop a plan to deal with those issues. 4. If your coping skills are ineffective and you are in crisis, contact your outpatient providers for direction. If unable to reach your providers, please call the [facility] LINE AT or go to the closest Emergency Room. 5. You should not drink alcohol or take un-prescribed drugs, including recreational drugs, illicit drugs, and prescription medications that are not yours or are addictive or abusable. 6. You have been provided with the Mental Health Advance Directives Pamphlet for your review. AFTERCARE APPOINTMENTS: * Please call your insurance company prior to your scheduled appointment to confirm your aftercare providers are covered. Take your insurance information to your appointments. . Discharge / Aftercare Planning Primary Care Physician: Name: Dr. Amin Therapist: Name Of Therapist: none Process Validation Engineer: Name: Rossi Maldonado . Follow-Up Care Plan for Follow-Up Care: See above - patient [facility] to [facility]. Current Hospital Diet Patient's current hospital diet: Regular Diet Discharge Diet Recommended Diet: Regular Diet Procedures Procedures Performed: No Pending Studies Pending Studies at Discharge: No Medical Emergencies . Who to Call and When: Medical Emergencies: For questions or emergencies related to your hospital stay, please contact the Inpatient Behavioral Health Unit at [phone]. A tire repairman is on-call 13/03 for the Behavioral Health Unit for emergencies At any time you feel your situation is an emergency, you may also call 911 immediately. . Non-Emergent Contact Non-Emergency issues call your: Primary Care Provider, Psychiatrist, Process Validation Engineer Past History Medical & Surgical History: (1) Opiate dependence (2) Tobacco use disorder (3) Cannabis use disorder, mild, abuse (4) Amphetamine abuse Advance Directives Existing Advance Directive: No Do You Have an Existing Mental: No Existing Living Will: No Existing Power of Spray Blender: No Advance Directives Info Given: To Pt/S.O. Advance Directives Reason: Declines as Mental Health Visit. Discharge Summary Admission HPI Per the Admitting provider: Patient is known to us for multiple previous admissions, most recently in November 2016, when he was here for an extended stay due to depression and suicidality in the context of substance abuse. Multiple attempts were made to discharge him , but each time he felt unable to leave and developed suicidal thinking. During his hospitalization, he was restarted on psychotropic medications, including escitalopram, trazodone, and prazosin for nightmares. He was continued on methadone at his outpatient dose. His primary stressor at that time was his relationship with his girlfriend Jessica, as she had discovered he was having contact with other women, and they had multiple arguments throughout the course of his hospitalization. They ultimately reconcile, and he was discharged to return to live with her. He was referred to [facility] for intensive outpatient substance abuse treatment, [facility] for medication management, and case management through the base service unit. He states that after he left the hospital, he "tried to" follow up with his aftercare, went to his initial evaluation at [facility], but then canceled his next appointment as his insurance lapsed, and never followed up there again. He says he is "almost out" of medications, as he got prescriptions at his [facility] appointment 03/16. which should have run out 2 weeks ago. He admits he is missing doses "here and there." He says he has followed up at [facility], but then says it's been "a few weeks" since he was seen there. He ultimately admits he only went to two appointments there, and has not been there in weeks. He continues to go to [facility] for methadone, and sees Millicent there for counseling once a week. He says he spoke to her yesterday, [facility] was contacted and came to his home to see him, and he then went to "merchandise pickup/receiving associate some hygiene stuff" and get food before coming to the hospital. He reports worsening depression and anxiety, "every day, just overwhelmed, thoughts of checking out." Stressors include that he and his girlfriend "lost our apartment, lost our vehicle." They out their things in storage and are now staying with a friend in [place]. He reports guilt, "I blame myself for everything that goes wrong in our lives." He endorses low mood, appetite, disrupted sleep, poor energy and focus. He admits to multiple plans for suicide , says he was "looking up stuff that is painless," including overdose, cut wrists, carbon monoxide poisoning, or suicide by [employer]cre[employer] helicopter. He denies that he has tried to hurt himself, but says "I really want to." He reports high anxiety, which is daily, constant, and denies alleviating factors. He denies hallucinations and manic symptoms. He reports "paranoia" which he describes as "worried about everything." He initially denies abusing substances, but when asked about his UDS which was positive for amphetamine, says he "found a Ritalin" and took it. With further questioning, he admits he takes Ritalin which is prescribed to his girlfriend's child, but is not sure which child it is (Felipe or Aniceto, says he doesn't know their last name). He say he takes the child's medication "but not real regular, " won't say how frequently, although also admitted to abusing it in November when admitted, and UDS was also positive at that time. He is resistant to answering questions about his substance use, saying "you're making me feel really overwhelmed." He states he is hoping to go to "a more ad terminal makeup operator dual diagnosis type of place." After being informed that this will require a mandated CYS report, he admits that he is also abusing methamphetamine for the past few months. He says his girlfriend doesn't know, and that he has been lying to people as he's had multiple positive UDS at the methadone clinic, telling them he's only using Ritalin as he thought that "wouldn't be as bad" as if he admitted he was abusing meth. Spoke to his counselor at [facility], Millicent, who states Admission Exam Per the Admitting provider: Please see admission H&P. Consultations None. Hospital Course (1) Suicidal ideation Suicide checks for safety. Attend groups and work on safety plan. Family meeting with girlfriend whom he lives with. 03/30 - patient feels safe as long as he is in the hospital or rehab, denies plan or intent to harm himself at this time, but would not feel safe going home at this time. 03/31 - Continue current meds - Has SI but not P/I. Likely going to [facility] upon discharge. 04/03 - Denying SI for the past 2 days, and is stable for discharge to [facility]. (2) Major depressive disorder, recurrent severe without psychotic features Noncompliance with OP f/u and meds. Resume escitalopram 20mg qam, trazodone 150mg qhs, and prazosin at home doses. Will need re-referred for OP care. 03/30 - re-referred to [facility] for med management. Exploring rehab. 04/01 - Continue current meds 04/03 - Continue meds. business banking officer informed staff that patient's probation was revoked due to ongoing substance abuse and noncompliance. He will be transferred to [facility] today. (3) PTSD (post-traumatic stress disorder) Resume prazosin and escitalopram. (4) Opiate dependence Dose confirmed with [facility], will order as solution here to decrease abuse potential/cheeking. Will coordinate care with therapist Millicent given ongoing substance abuse. 03/30 - Coordinated care with his counselor, Millicent, at [facility] - he has been poorly compliant with treatment there, has had multiple drug screens positive for amphetamines, but did not disclose his meth abuse to them. They have recommended inpatient rehab, but he did not follow through on the referral. She also stated he has a DUI hearing this week and expects he will go to [facility]. - Ask patient to allow coordination with his PO regarding his legal issues. 03/31 - Have left 2 messages with [facility] regarding request for taper schedule in view of likely [facility] at discharge. ADD: In view of no response from [facility], we have consulted with our pharmacy regarding methadone tapering. We are agreed that it is in the best interest of the patient to start tapering methadone starting tomorrow AM in view of the fact he may be going to [facility] as soon as Monday or Monday, where he will get no methadone at all. Dr. Israel has consulted with Dr. Nichols, Pain Management, who suggests that reducing by 25% would be reasonable at this time. Will therefore reduce methadone to 90 mg. daily starting tomorrow. 04/01 - Methadone taper starts today. Will medicate withdrawal symptoms prn. 04/02 - Tolerating taper with minimal withdrawal symptoms - Is asking for further taper but will wait until tomorrow 04/03 - Methadone tapered to 60mg, and patient discharging to [facility]. Continue clonidine bid for opiate withdrawal. (5) Amphetamine abuse Patient admits to abusing meth and Ritalin, which he is taking from his girlfriend's son. Recommend inpatient rehab, which he is willing for. CYS report made via [facility] due to patient's abusing his girlfriend's child's stimulants (made to April, ID#[id number]). 03/30 - He remains willing for rehab, and referrals are being made. (6) Antisocial personality disorder Maintain consistent boundaries. Recommend OP therapy. 03/31 - Assist the patient look at his behaviors and how he can make better choices in the future. (7) Tobacco use disorder Smoke 1/2 PPD. Educated about risks of ongoing use and will provide patch and gum for cravings here. (8) Cannabis use disorder, mild, abuse Educated about the risks of ongoing substance abuse and recommendations for abstinence. Risk Factors Assessment Male: Yes : Yes /single/: No Higher / Fall in social status: No Access to guns: No Health problems: Yes Mental Health Diagnoses: Yes Substance use disorders: Yes Previous attempt: Yes Previous psychiatric stay: Yes Hopelessness: Yes Smoker: Yes Protective Factors Assessment Quaker beliefs: Yes : No Responsible for young children: Yes Employed: No Stable relationships: Yes Supportive family: No Good rapport with provider: No (noncompliant with outpatient treatment) Absence of risk factors above: Yes (risk factors were mitigated by admission to the inpatient unit, treating depression and anxiety with medication, encouraging participation in unit groups and programming, working on healthy coping skills and a discharge safety plan, coordinating with his inspectors and regulatory officers regarding legal problems, coordinating with his substance abuse treatment providers at [facility], and ultimately transferred to [facility] due to [facility] violation. The patient's mood has improved here, he is denying suicidal thoughts for the past 2 days, and is able to review healthy coping skills and his discharge safety plan. He has been tapered off of methadone as he is going to [facility] where he cannot receive it, and has medication ordered for opiate withdrawal. He is no longer at acute risk of harm to himself or others, so can be discharged to police custody for transfer to [facility] at this time. CYS report was also made due to his statements that he had been taking his girlfriends child's controlled substances.) Day of Discharge Assessment Hospital course: On admission, the patient was not forthcoming with recent substance abuse, and initially denying that he had been using any drugs, until confronted with his drug screen, which was positive for amphetamine/methamphetamine. He initially stated that he had been taking Ritalin that was prescribed to his girlfriend's child, and when informed that this required a mandated CYS report, he stated that he had been abusing methamphetamine for the past several months. When records were reviewed, his drug screen was also positive for methamphetamine on his November 2016 admission. His counselor at [facility] was contacted, who has worked with them for the past 3 years, and stated that he tested positive for amphetamines multiple times in the past 7 months. He told her that he was taking prescription stimulants, and did not disclose that he was abusing methamphetamine. She had referred him to inpatient substance abuse treatment at the beginning of February, but he did not follow through, so was not accepted and did not attend treatment. She also stated that he had a hearing shortly after admission for his DUI, and expected that he would be going to [facility], which is why they had recommended he go to inpatient rehabilitation in order to be detoxed off of methadone, which he cannot get [facility]. He had been noncompliant with his appointments at [facility], and also admitted to noncompliance with outpatient substance abuse treatment at [facility], and outpatient psychiatric treatment at [facility]. Initially, he requested referrals for dual diagnosis inpatient treatment, and these were made. His inspectors and regulatory officers was then contacted after his counselor at the methadone clinic reported that he had active charges and was likely going to [facility], and stated that the patient had two hearings scheduled for 03/31/2017, the first for his DUI, and the second a probation revocation hearing. He stated the patient would be served a warrant and would be going to [facility] on release from the hospital. The patient was informed of this. He had visits from his girlfriend Jessica, attended and participated in groups, and demonstrated good appetite. Sleep was observed to be good. He requested to have his methadone tapered off, as he would not be able to get it in [facility], and this was done after consulting with pain management. He was also started on clonidine for opiate withdrawal symptoms. Day of discharge assessment: The patient states that his mood is "okay, hanging in there," but he feels he is having some opiate withdrawal symptoms, including stomach cramps and muscle aches. He was able to eat breakfast, and states sleep was "okay," but disrupted by his roommate who was restless and up frequently overnight. He denies suicidal thoughts and thoughts of harming others, stating that he "is trying to focus on the positive things, think about my kids." He is aware that he will be going to [facility] at discharge, and requested go down again on his methadone dose today. Obese white male appearing stated age. Casually dressed with limited grooming, multiple tattoos visible, long hair that is disheveled. Lying in bed in no acute distress. Calm and cooperative. Limited eye contact and no abnormal movements. Speech is normal rate, volume, and tone. Mood is "okay," and affect is restricted, stable and congruent. Thoughts are linear, logical and goal directed. The patient denied suicidal and homicidal ideation and was able to review his safety plan. No paranoia, delusions, or hallucinations, and did not appear to be responding to internal stimuli. Cognition was grossly intact. Alert and oriented to person, place and time. Intelligence is consistent with level of education. Insight and and judgment are fair. Laboratory Test 03/28/17 21:15 03/28/17 21:52 03/28/17 21:58 Urine Color YELLOW Urine Appearance CLEAR Urine pH 5.0 Urine Specific [place] 1.026 Urine Protein NEG Urine Glucose (UA) NEG Urine Ketones TRACE Urine Occult Blood NEG Urine Nitrite NEG Urine Bilirubin NEG Urine Urobilinogen NEG Urine Leukocyte Esterase NEG White Blood Count 10.76 Red Blood Count 4.25 Hemoglobin 13.3 Hematocrit 39.3 Mean Corpuscular Volume 92.5 Mean Corpuscular Hemoglobin 31.3 Mean Corpuscular Hemoglobin Concent 33.8 Platelet Count 229 Mean Platelet Volume 9.3 Neutrophils (%) (Auto) 46.5 Lymphocytes (%) (Auto) 42.8 Monocytes (%) (Auto) 8.5 Eosinophils (%) (Auto) 1.4 Basophils (%) (Auto) 0.4 Neutrophils # (Auto) 5.02 Lymphocytes # (Auto) 4.60 Monocytes # (Auto) 0.91 Eosinophils # (Auto) 0.15 Basophils # (Auto) 0.04 RDW Standard Deviation 46.3 RDW Coefficient of Variation 13.7 Immature Granulocyte % (Auto) 0.4 Immature Granulocyte # (Auto) 0.04 Sodium Level 145 Potassium Level 3.6 Chloride Level 108 Carbon Dioxide Level 32 Anion Gap 5.0 Blood Urea Nitrogen 11 Creatinine 1.40 Est Creatinine Clear Calc Drug Dose 83.0 Estimated GFR () 74.9 Estimated GFR (Non- 64.6 BUN/Creatinine Ratio 7.5 Random Glucose 92 Calcium Level 8.9 Total Bilirubin 0.3 Direct Bilirubin < 0.1 Aspartate Amino Transferase (AST) 41 Alanine Aminotransferase (ALT) 83 Alkaline Phosphatase 59 Total Protein 7.1 Albumin 3.3 Globulin 3.8 Albumin/Globulin Ratio 0.9 Thyroid Stimulating Hormone (TSH) 4.330 Salicylates Level 1.8 Acetaminophen Level < 2 Ethyl Alcohol mg/dL < 3.0 Urine Opiates Screen NEG Urine Methadone, Qualitative POS Urine Methadone Metabolites 99496 Urine Methadone Confirm 21766 Urine Barbiturates NEG Urine Phencyclidine (PCP) Level NEG Urine Amphetamines Confirmation 513 Ur Amphetamine/Methamphetamine POS Urine Methamphetamine Confirmation 5220 Urine MDE-amphetamine (MDEA) negative Ur Methylenedioxyamphetamine (MDA) negative MDMA (Ecstasy) Screen POS Methylenedioxymethamphetamine (MDMA negative Urine Benzodiazepines Screen NEG Urine Cocaine Metabolite NEG Urine Marijuana (THC) NEG Total Time Total Time Spent (min): Greater than 30 minutes Total Time Included: examination of the patient, discharge planning, medication reconciliation Tobacco Cessation at Discharge Smoking Status: Current Every Day Smoker (1/2 PPD) FDA approved Prescription: declined med & out pt counseling, nicotine replacement product
[2017-05-26] MEDS ORDERED: CIPR-255 PO (19:17)
[2017-05-26] MEDS ORDERED: TRAZ1TAB52 PO (19:18)
[2017-05-26] MEDS ORDERED: HYDR12.56 PO (19:20)
[2017-05-26] MEDS ORDERED: HYDR50CA PO (19:23)
[2017-05-26] MEDS ORDERED: TORADOL 15 MG/ML IM (19:26)
[2017-05-28] MEDS ORDERED: CEPH500C2 PO (13:59)
[2017-05-28] MEDS ORDERED: FLM4 PO (13:59)
[2017-05-28] MEDS ORDERED: MTR600X OR (14:22)
== END 2017-04-03 12:10 | DRG 885 ==
LOC: C.EDB 20:50 → C.MHU 23:52
PROVIDERS: ADMIT Psychiatry & Neurology Psychiatry; ATTEND Psychiatry & Neurology Psychiatry
DX: F33.2 Major depressive disorder, recurrent severe without psychotic features (principal); R45.851 Suicidal ideations; F11.20 Opioid dependence, uncomplicated; F17.200 Nicotine dependence, unspecified, uncomplicated; F43.10 Post-traumatic stress disorder, unspecified; F60.2 Antisocial personality disorder; F15.10 Other stimulant abuse, uncomplicated; F12.10 Cannabis abuse, uncomplicated; Z79.899 Other long term (current) drug therapy; Z81.8 Family history of other mental and behavioral disorders

== ENCOUNTER 2017-05-14 14:39 | Emergency (ER) | payer OTHER ==
[~2017-05-14] VITALS: Ht 165.1 cm; Wt 109.1 kg
[~2017-05-14 14:39] MED LIST changes: +CTP1 PO; -DSY50 PO; -PRAZ2CAP2 PO; +PRAZ2CAP3 PO; +TRAZ50TA35 PO; -[UNRECOGNIZED DRUG - CODE] PO
[2017-05-14 14:44] VITALS: TEMP 37.2; Ht 165.1 cm; Wt 109.1 kg
[2017-05-14] MEDS ORDERED: PRAZ2CAP PO (14:56)
[2017-05-14] MEDS ORDERED: HYDR25CA PO (14:56)
[2017-05-14] MEDS ORDERED: ESCI1TAB10 PO (14:56)
[2017-05-14] MEDS ORDERED: TRAZ100T29 PO (14:56)
[2017-05-14] MEDS ORDERED: ONDANSETRON INJ 2 MG/ML 2 ML VIAL IV STA (15:02)
[2017-05-14] MEDS ORDERED: SODIUM CHLORIDE 0.9% 1000ML 1,000 ML IV STA (15:02)
[2017-05-14] MEDS: MoRPHine SULFATE 4 MG/ML 1 ML CARP\\VIAL IV PRN ×2 (15:11→15:34)
[2017-05-14 15:12] LABS: BASO % 0.5 %; BASO ABS # 0.06 K/uL (0-0.2); COMPLETE YES; EOS % 0.7 %; HEMATOCRIT 46.7 % (42-52); IG% 0.4 %; LYMPH % 39.9 %; LYMPH ABS # 4.88 K/uL (1.2-3.4); MEAN CELL VOLUME 91.7 fL (80-100); MEAN CORPUSCULAR HGB CONC 33.8 g/dl (32-36); MEAN PLATELET VOLUME 9.3 fL (7.4-10.4); MONO % 8.9 %; NEUT % 49.6 %; PLATELET COUNT 321 K/uL (130-400); RED BLOOD COUNT 5.09 M/uL (4.7-6.1); WHITE BLOOD COUNT 12.22 K/uL (4.8-10.8)
[2017-05-14 15:34] LABS: MANUAL MICROSCOPIC REQUIRED? NO; REVIEW REQ? NO; URINE APPEARANCE CLEAR (CLEAR); URINE BILIRUBIN NEG (NEG); URINE COLOR YELLOW; URINE EPITHELIAL CELL AUTO 0-5 /lpf (0-5); URINE NITRITE NEG (NEG); URINE SPECIFIC GRAVITY 1.012 (1.000-1.030); UROBILINOGEN NEG (NEG)
--- NOTE | 2017-05-14 15:38 | DIAGNOSTIC IMAGING REPORT ---
ABD/PELVIS NO IV OR ORAL CONT CT DOSE: 1109.12 mGy.cm HISTORY: Flank pain right flank pain TECHNIQUE: Multiaxial CT images of the abdomen and pelvis were performed without contrast. A dose lowering technique was utilized adhering to the principles of ALARA. COMPARISON STUDY: 03/11/2013 FINDINGS: Lung bases are clear. Liver is uniform throughout. Prior cholecystectomy. Pancreas is uniform throughout. Bilateral renal nephrocalcinosis similar as compared to the prior study. Overall maximum dimension of the calcification is perhaps slightly increased. No evidence renal hydronephrosis. Ureters are normal in course and caliber. No evidence for an obstructing urinary tract calculus. Bladder is midline and again with no calcification. Nonobstructive bowel pattern. Unremarkable appendix. Moderate increase in fecal load within the a sending and transverse colonic region. IMPRESSION: 1. Bilateral nonobstructing renal calcifications. 2. No evidence for an obstructing urinary tract calculus. 3. Nonobstructive bowel pattern. 4. Moderate increase in fecal load within the a sending and proximal to mid transverse colon. The above report was generated using voice recognition software. It may contain grammatical, syntax or spelling errors. Electronically signed by: William Dominguez M.D. 05/14/2017 3:37 PM Dictated Date/Time: 05/14/2017 3:32 PM
[2017-05-14 15:41] LABS: ALKALINE PHOSPHATASE 81 U/L (45-117); CALCIUM 8.6 mg/dl (8.5-10.1); CARBON DIOXIDE 26 mmol/L (21-32); CHLORIDE 108 mmol/L (98-107); SODIUM 141 mmol/L (136-145)
[2017-05-14 16:06] LABS: ALT/SGPT 80 U/L (12-78); BLOOD UREA NITROGEN 11 mg/dl (7-18); GLUCOSE 160 mg/dl (70-99)
--- NOTE | 2017-05-14 17:03 | EMERGENCY ROOM VISIT NOTE ---
History Report prepared by Larisa: Tyra Coffey Under the Supervision of: Dr. Richie Hill D.O. First contact with patient: 14:50 Chief Complaint: FLANK PAIN Stated Complaint: RIGHT FLANK PAIN HX: KIDNEY STONES History of Present Illness The patient is a 36 year old male who presents to the Emergency Room with complaints of worsening right flank pain starting four hours ago. The patient states that he has a history of kidney stones and thinks that this is another one. The patient describes it as cramping. He complains of being diaphoretic and nauseous. He currently rates his pain as a 10/10 in severity. Source of History: patient Onset: four hours ago Position: other (right flank) Symptom Intensity: 10/10 Quality: cramping, other (similar to past kidney stones) Timing: worsening Associated Symptoms: + diaphoresis, + nausea Review of Systems See HPI for pertinent positives & negatives. A total of 10 systems reviewed and were otherwise negative. Past Medical & Surgical Medical Problems: (1) Acute gastroenteritis (2) ACUTE PANCREATITIS (3) Amphetamine abuse (4) Antisocial personality disorder (5) CALCULUS OF KIDNEY (6) Cannabis use disorder, mild, abuse (7) Cholecystectomy (8) Chronic back pain (9) Gallbladder problem (10) Kidney stone (11) Major depressive disorder, recurrent severe without psychotic features (12) NONINF GASTROENTERIT NEC (13) Opiate dependence (14) POIS-SEDATIVE/HYPNOT NEC (15) PTSD (post-traumatic stress disorder) (16) Spasm of back muscles (17) Stomach problems (18) Thoracic back pain (19) Tobacco use disorder Surgical Problems: (1) History of cholecystectomy (2) History of renal stent Family History Patient reports no known family medical history. 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2 122 20 97 Room Air Physical Exam GENERAL: Patient is awake, alert, and is very anxious. The patient is uncomfortable appearing and appears in significant pain. EYES: The conjunctivae are clear. The pupils are round and reactive. EARS, NOSE, MOUTH AND THROAT: The nose is without any evidence of any deformity. Mucous membranes are moist tongue is midline NECK: The neck is nontender and supple. RESPIRATORY: Normal respiratory effort is noted there is no evidence of wheezing rhonchi or rales CARDIOVASCULAR: Regular rate and rhythm noted there no murmurs rubs or gallops normal S1 normal S2 GASTROINTESTINAL: The abdomen is moderately distended with right side tenderness noted. No guarding or rigidity appreciated. BACK: No midline tenderness. Right CVA tenderness noted to percussion. MUSCULOSKELETAL/EXTREMITIES: There is no evidence of gross deformity full range of motion is noted in the hips and shoulders SKIN: There is no obvious evidence of any rash. There are no petechiae, pallor or cyanosis noted. NEUROLOGIC: Patient is awake alert and oriented x3 Medical Decision & Procedures ER Provider Diagnostic Interpretation: Radiology results as stated below per my review and radiologist interpretation: ABD/PELVIS NO IV OR ORAL CONT CT DOSE: 1109.12 mGy.cm HISTORY: Flank pain right flank pain TECHNIQUE: Multiaxial CT images of the abdomen and pelvis were performed without contrast. A dose lowering technique was utilized adhering to the principles of ALARA. COMPARISON STUDY: 03/11/2013 FINDINGS: Lung bases are clear. Liver is uniform throughout. Prior cholecystectomy. Pancreas is uniform throughout. Bilateral renal nephrocalcinosis similar as compared to the prior study. Overall maximum dimension of the calcification is perhaps slightly increased. No evidence renal hydronephrosis. Ureters are normal in course and caliber. No evidence for an obstructing urinary tract calculus. Bladder is midline and again with no calcification. Nonobstructive bowel pattern. Unremarkable appendix. Moderate increase in fecal load within the a sending and transverse colonic region. IMPRESSION: 1. Bilateral nonobstructing renal calcifications. 2. No evidence for an obstructing urinary tract calculus. 3. Nonobstructive bowel pattern. 4. Moderate increase in fecal load within the a sending and proximal to mid transverse colon. The above report was generated using voice recognition software. It may contain grammatical, syntax or spelling errors. Electronically signed by: William Dominguez M.D. 05/14/2017 3:37 PM Dictated Date/Time: 05/14/2017 3:32 PM Laboratory Results 05/14/17 14:54 Red Blood Count 5.09, Mean Corpuscular Volume 91.7, Mean Corpuscular Hemoglobin 31.0, Mean Corpuscular Hemoglobin Concent 33.8, Mean Platelet Volume 9.3, Neutrophils (%) (Auto) 49.6, Lymphocytes (%) (Auto) 39.9, Monocytes (%) (Auto) 8.9, Eosinophils (%) (Auto) 0.7, Basophils (%) (Auto) 0.5, Neutrophils # (Auto) 6.05, Lymphocytes # (Auto) 4.88, Monocytes # (Auto) 1.09, Eosinophils # (Auto) 0.09, Basophils # (Auto) 0.06 05/14/17 14:54 Test 05/14/17 14:54 05/14/17 16:41 White Blood Count 12.22 K/uL (4.8-10.8) Red Blood Count 5.09 M/uL (4.7-6.1) Hemoglobin 15.8 g/dL (14.0-18.0) Hematocrit 46.7 % (42-52) Mean Corpuscular Volume 91.7 fL (80-100) Mean Corpuscular Hemoglobin 31.0 pg (25-34) Mean Corpuscular Hemoglobin Concent 33.8 g/dl (32-36) Platelet Count 321 K/uL (130-400) Mean Platelet Volume 9.3 fL (7.4-10.4) Neutrophils (%) (Auto) 49.6 % Lymphocytes (%) (Auto) 39.9 % Monocytes (%) (Auto) 8.9 % Eosinophils (%) (Auto) 0.7 % Basophils (%) (Auto) 0.5 % Neutrophils # (Auto) 6.05 K/uL (1.4-6.5) Lymphocytes # (Auto) 4.88 K/uL (1.2-3.4) Monocytes # (Auto) 1.09 K/uL (0.11-0.59) Eosinophils # (Auto) 0.09 K/uL (0-0.5) Basophils # (Auto) 0.06 K/uL (0-0.2) RDW Standard Deviation 45.3 fL (36.4-46.3) RDW Coefficient of Variation 13.5 % (11.5-14.5) Immature Granulocyte % (Auto) 0.4 % Immature Granulocyte # (Auto) 0.05 K/uL (0.00-0.02) Urine Color YELLOW Urine Appearance CLEAR (CLEAR) Urine pH 5.0 (4.5-7.5) Urine Specific [place] 1.012 (1.000-1.030) Urine Protein NEG (NEG) Urine Glucose (UA) NEG (NEG) Urine Ketones NEG (NEG) Urine Occult Blood 2+ (NEG) Urine Nitrite NEG (NEG) Urine Bilirubin NEG (NEG) Urine Urobilinogen NEG (NEG) Urine Leukocyte Esterase NEG (NEG) Urine WBC (Auto) 1-5 /hpf (0-5) Urine RBC (Auto) 0-4 /hpf (0-4) Urine Hyaline Casts (Auto) 0 /lpf (0-5) Urine Epithelial Cells (Auto) 0-5 /lpf (0-5) Urine Bacteria (Auto) NEG (NEG) Anion Gap 7.0 mmol/L (3-11) Est Creatinine Clear Calc Drug Dose 106.8 ml/min Estimated GFR () 100.3 Estimated GFR (Non- 86.5 BUN/Creatinine Ratio 10.0 (10-20) Calcium Level 8.6 mg/dl (8.5-10.1) Total Bilirubin 0.5 mg/dl (0.2-1) Direct Bilirubin mg/dl (0-0.2) Aspartate Amino Transf (AST/SGOT) U/L (15-37) Alanine Aminotransferase (ALT/SGPT) 80 U/L (12-78) Alkaline Phosphatase 81 U/L (45-117) Total Protein 8.2 gm/dl (6.4-8.2) Albumin 3.7 gm/dl (3.4-5.0) Lipase 213 U/L (73-393) Total Creatine Kinase 119 U/L (39-308) Chemistry Specimen Hemolysis Laboratory results per my review. Medications Administered Medications (Trade) Dose Ordered Sig/Jaime Route Start Time Stop Time Status Last Admin Dose Admin Sodium Chloride 1,000 ml @ 999 mls/hr Q1H1M STAT IV 05/14/17 15:02 05/14/17 16:02 DC 05/14/17 15:10 999 MLS/HR Ondansetron HCl (Zofran Inj) 4 mg NOW STAT IV 05/14/17 15:02 05/14/17 15:04 DC 05/14/17 15:10 4 MG Morphine Sulfate (MoRPHine SULFATE INJ) 4 mg Q15M PRN IV 05/14/17 15:15 05/14/17 18:14 DC 05/14/17 15:34 4 MG ED Course 1501: The patient was evaluated in room C1B. A complete history and physical examination were performed. 1502: Ordered Zofran Inj 4 mg IV, NSS 1000 ml @ 999 mls/hr IV. 1515: Ordered Morphine Sulfate 4 mg PRN IV pain. 1720: Upon reevaluation, the patient is resting comfortably. I discussed the results and treatment plan with him. He verbalized agreement of the treatment plan. The patient was discharged home. Medical Decision Etiologies such as renal colic, appendicitis, diverticulitis, mesenteric ischemia, aortic pathology, infections, inflammatory bowel disease, PUD, biliary pathology, UTI, as well as others were entertained. Nursing notes reviewed. The patient is a 36-year-old male who has a history of kidney stone who presented to the emergency department for evaluation of acute right flank pain. The patient's history and physical exam appeared to be consistent with renal colic. He had hematuria on urinalysis. He was treated with IV fluids IV pain medicine and IV antiemetics. CT did not reveal any ureteral calculi but I feels condition could be consistent with a recently passed kidney stone. He was feeling much better on subsequent reevaluation. He was encouraged to rest and avoid any strenuous activity. He was also encouraged to continue all medications as prescribed and follow-up with his family doctor soon as possible. Otherwise she was encouraged to return to the emergency department immediately if symptoms change worsen or the need arises. Impression Primary Impression: Flank pain Additional Impression: Kidney stone Scribe Attestation The scribe's documentation has been prepared under my direction and personally reviewed by me in its entirety. I confirm that the note above accurately reflects all work, treatment, procedures, and medical decision making performed by me. Departure Information Dispostion Home / Self-Care Referrals Olivia Amin M.D. (MEDICAL) (PCP) Forms HOME CARE DOCUMENTATION FORM, IMPORTANT VISIT INFORMATION Patient Instructions My [facility] Additional Instructions Continue all medications as prescribed. Drink plenty clear liquids. Follow-up with your family for reevaluation. Problem Qualifiers
[2017-05-14 17:34] VITALS: BP 147/95; PULSE 86; O2SAT 96
[2017-05-26] MEDS ORDERED: CIPR-255 PO (19:17)
[2017-05-26] MEDS ORDERED: TRAZ1TAB52 PO (19:18)
[2017-05-26] MEDS ORDERED: HYDR12.56 PO (19:20)
[2017-05-26] MEDS ORDERED: HYDR50CA PO (19:23)
[2017-05-26] MEDS ORDERED: TORADOL 15 MG/ML IM (19:26)
[2017-05-28] MEDS ORDERED: CEPH500C2 PO (13:59)
[2017-05-28] MEDS ORDERED: FLM4 PO (13:59)
[2017-05-28] MEDS ORDERED: MTR600X OR (14:22)
== END 2017-05-14 17:35 | disposition home or self-care (01) ==
LOC: C.EDB 14:42 → C.EDC 17:35
DX: R10.9 Unspecified abdominal pain (principal); N20.0 Calculus of kidney; F33.2 Major depressive disorder, recurrent severe without psychotic features; F17.200 Nicotine dependence, unspecified, uncomplicated; Z87.442 Personal history of urinary calculi; Z90.49 Acquired absence of other specified parts of digestive tract; Z98.890 Other specified postprocedural states; Z79.899 Other long term (current) drug therapy

== ENCOUNTER 2017-06-08 19:28 | Emergency (ER) | payer OTHER ==
[~2017-06-08] VITALS: Ht 162.6 cm; Wt 107.1 kg
[~2017-06-08 19:28] MED LIST changes: -CTP1 PO; +FLM4 PO; +HYDR50CA PO; +MTR600X OR; +PRAZ2CAP PO; -PRAZ2CAP3 PO; +TRAZ1TAB52 PO; -TRAZ50TA35 PO
[2017-06-08 19:33] VITALS: TEMP 37.1; Ht 162.6 cm; Wt 107.1 kg
[2017-06-08] MEDS ORDERED: MoRPHine SULFATE 10 MG/ML CARP/VIAL IV STA (20:03)
[2017-06-08] MEDS ORDERED: SODIUM CHLORIDE 0.9% 1000ML 1,000 ML IV STA (20:03)
[2017-06-08] MEDS ORDERED: ONDANSETRON INJ 2 MG/ML 2 ML VIAL IV STA (20:03)
[2017-06-08] MEDS ORDERED: OPTIRAY 320 IV PRN (20:15)
--- NOTE | 2017-06-08 20:35 | EMERGENCY ROOM VISIT NOTE ---
History Report prepared by Larisa: Kaiden Abdullahi Under the Supervision of: Dr. Papo Wong M.D. First contact with patient: 19:59 Chief Complaint: KIDNEY STONE Stated Complaint: ABDOMINAL PAIN History of Present Illness The patient is a 36 year old male who presents to the Emergency Room with complaints of worsening abdominal pain beginning two days ago. The patient states he was recently here for a kidney stone and was told it was 9mm. He reports he had a pancreatic stent place 11 days ago to help him pass it. The patient notes his pain feels like he has to urinate extremely bad. He states his pain started in the right flank, and it has moved to the lower abdomen/ bladder area. The patient reports he has not been able to empty his bladder. He notes he has a history of kidney stones, and he has never had pain like this before. The patient states he has been short of breath, nauseous, and diaphoretic. He denies fever and vomiting. Source of History: patient Onset: two days ago Position: abdomen Timing: worsening Associated Symptoms: + diaphoresis, + SOB, + nausea, No fevers, No vomiting Review of Systems See HPI for pertinent positives and negatives. A total of ten systems were reviewed and were otherwise negative. Past Medical & Surgical Medical Problems: (1) Acute gastroenteritis (2) ACUTE PANCREATITIS (3) Amphetamine abuse (4) Antisocial personality disorder (5) CALCULUS OF KIDNEY (6) Cannabis use disorder, mild, abuse (7) Cholecystectomy (8) Chronic back pain (9) Flank pain (10) Gallbladder problem (11) Kidney stone (12) Major depressive disorder, recurrent severe without psychotic features (13) Nephrolithiasis (14) NONINF GASTROENTERIT NEC (15) Opiate dependence (16) POIS-SEDATIVE/HYPNOT NEC (17) PTSD (post-traumatic stress disorder) (18) Spasm of back muscles (19) Thoracic back pain (20) Tobacco use disorder (21) Ureteral calculi Surgical Problems: (1) History of cholecystectomy (2) History of renal stent Social History Problems: (1) Stomach problems Family History Patient reports no known family medical history. Social History Smoking Status: Former Smoker Alcohol Use: none Drug Use: marijuana, other Marital Status: in relationship Housing Status: other Occupation Status: other Current/Historical Medications Scheduled Escitalopram Oxalate (Lexapro), 20 MG PO DAILY Prazosin Hcl (Minipress), 2 MG PO BID Tamsulosin HCl (Tamsulosin HCl), 0.4 MG PO QAM Trazodone Hcl (Desyrel), 150 MG PO HS Scheduled PRN Hydroxyzine Pamoate (Vistaril), 50 MG PO TID PRN for PRN Ibuprofen (Ibuprofen), 1 TAB OR Q8 PRN for Pain Ibuprofen Tab (Motrin), 800 MG PO Q8H PRN for Pain Allergies Coded Allergies: No Known Allergies (Verified , 06/08/17) Physical Exam Vital Signs Date Time Temp Pulse Resp B/P (MAP) Pulse Ox O2 Delivery O2 Flow Rate FiO2 06/08/17 23:03 94 126/72 94 06/08/17 21:46 87 21 142/112 96 Room Air 06/08/17 20:48 104 06/08/17 19:33 37.1 141 24 138/113 96 Room Air Physical Exam GENERAL: Awake, alert, uncomfortable appearing, diaphoretic HENT: Normocephalic, atraumatic. Oropharynx dry MM but otherwise unremarkable. EYES: Normal conjunctiva. Sclera non-icteric. NECK: Supple. No nuchal rigidity. FROM. No JVD. RESPIRATORY: Clear to auscultation. CARDIAC: Sinus tachycardia. Extremities warm and well perfused. Pulses equal. ABDOMEN: Soft, non-distended. Mild suprapubic fullness and moderate tenderness to palpation. No rebound or guarding. No masses. No peritoneal signs. RECTAL: Deferred. MUSCULOSKELETAL: Chest examination reveals no tenderness. The back is symmetrical on inspection without obvious abnormality. There is no CVA tenderness to palpation. No joint edema. LOWER EXTREMITIES: Calves are equal size bilaterally and non-tender. No edema. No discoloration. NEURO: Normal sensorium. No sensory or motor deficits noted. SKIN: No rash or jaundice noted. Warm and clammy. Medical Decision & Procedures ER Provider Diagnostic Interpretation: Radiology results as stated below per my review and radiologist interpretation CT OF THE ABDOMEN AND PELVIS WITH CONTRAST CLINICAL HISTORY: Suprapubic pain. Known kidney stone. COMPARISON STUDY: CT of the abdomen and pelvis May 28, 2017. TECHNIQUE: Following IV administration of 94 mL of [id number]-320, axial images of the abdomen and pelvis were obtained from the lung bases to the proximal femurs. Images were reviewed in the axial, sagittal, and coronal planes. IV contrast was administered without complication. A dose lowering technique was utilized adhering to the principles of ALARA. CT DOSE: 1096.62 mGy.cm FINDINGS: A right ureteral stent is in place. There is no hydronephrosis. There is a suspected punctate 2 mm calculus/fragment along the proximal aspect of the right ureteral stent. An 8 mm calculus is now within the lower pole of the right kidney. No additional ureteral calculi/fragments are present. There are are multiple bilateral renal calculi. Fatty infiltration of the liver is noted. A 1.4 cm enhancing right hepatic lobe lesion is unchanged from earlier exams and is benign given stability. A 5 mm right lower lobe pulmonary nodule is also unchanged from earlier studies. This is benign given stability. There is no evidence for a bowel obstruction. Caliber and wall thickness of small and large bowel are normal. The appendix is normal. No pneumatosis, free air or portal venous gas is present. There is a small fat-containing left inguinal hernia. There is no lymphadenopathy. No suspicious osseous lesions are present. Both nephrograms are symmetric. IMPRESSION: 1. Right ureteral stent in place. No hydronephrosis. 2 mm calculus/fragment within the proximal right ureter. No additional ureteral calculi or fragments. 2. Bilateral nephrolithiasis. 3. Normal appendix. No bowel obstruction. Electronically signed by: Josh Zhou M.D. 06/08/2017 9:34 PM Dictated Date/Time: 06/08/2017 9:25 PM Laboratory Results 06/08/17 20:30 Red Blood Count 5.49, Mean Corpuscular Volume 88.0, Mean Corpuscular Hemoglobin 30.6, Mean Corpuscular Hemoglobin Concent 34.8, Mean Platelet Volume 9.1, Neutrophils (%) (Auto) 48.5, Lymphocytes (%) (Auto) 41.0, Monocytes (%) (Auto) 7.8, Eosinophils (%) (Auto) 1.2, Basophils (%) (Auto) 0.7, Neutrophils # (Auto) 6.45, Lymphocytes # (Auto) 5.46, Monocytes # (Auto) 1.04, Eosinophils # (Auto) 0.16, Basophils # (Auto) 0.09 06/08/17 20:30 Test 06/08/17 20:15 06/08/17 20:30 06/08/17 20:35 Urine Color YELLOW Urine Appearance CLOUDY (CLEAR) Urine pH 5.0 (4.5-7.5) Urine Specific [place] 1.015 (1.000-1.030) Urine Protein 1+ (NEG) Urine Glucose (UA) NEG (NEG) Urine Ketones NEG (NEG) Urine Occult Blood 3+ (NEG) Urine Nitrite NEG (NEG) Urine Bilirubin NEG (NEG) Urine Urobilinogen NEG (NEG) Urine Leukocyte Esterase TRACE (NEG) Urine WBC (Auto) 1-5 /hpf (0-5) Urine RBC (Auto) 10-30 /hpf (0-4) Urine Hyaline Casts (Auto) 1-5 /lpf (0-5) Urine Epithelial Cells (Auto) 10-20 /lpf (0-5) Urine Bacteria (Auto) NEG (NEG) White Blood Count 13.31 K/uL (4.8-10.8) Red Blood Count 5.49 M/uL (4.7-6.1) Hemoglobin 16.8 g/dL (14.0-18.0) Hematocrit 48.3 % (42-52) Mean Corpuscular Volume 88.0 fL (80-100) Mean Corpuscular Hemoglobin 30.6 pg (25-34) Mean Corpuscular Hemoglobin Concent 34.8 g/dl (32-36) Platelet Count 332 K/uL (130-400) Mean Platelet Volume 9.1 fL (7.4-10.4) Neutrophils (%) (Auto) 48.5 % Lymphocytes (%) (Auto) 41.0 % Monocytes (%) (Auto) 7.8 % Eosinophils (%) (Auto) 1.2 % Basophils (%) (Auto) 0.7 % Neutrophils # (Auto) 6.45 K/uL (1.4-6.5) Lymphocytes # (Auto) 5.46 K/uL (1.2-3.4) Monocytes # (Auto) 1.04 K/uL (0.11-0.59) Eosinophils # (Auto) 0.16 K/uL (0-0.5) Basophils # (Auto) 0.09 K/uL (0-0.2) RDW Standard Deviation 42.0 fL (36.4-46.3) RDW Coefficient of Variation 13.0 % (11.5-14.5) Immature Granulocyte % (Auto) 0.8 % Immature Granulocyte # (Auto) 0.11 K/uL (0.00-0.02) Anion Gap 7.0 mmol/L (3-11) Est Creatinine Clear Calc Drug Dose 93.7 ml/min Estimated GFR () 88.5 Estimated GFR (Non- 76.3 BUN/Creatinine Ratio 10.6 (10-20) Calcium Level 9.7 mg/dl (8.5-10.1) Total Bilirubin 0.3 mg/dl (0.2-1) Direct Bilirubin < 0.1 mg/dl (0-0.2) Aspartate Amino Transf (AST/SGOT) 41 U/L (15-37) Alanine Aminotransferase (ALT/SGPT) 65 U/L (12-78) Alkaline Phosphatase 73 U/L (45-117) Total Protein 8.7 gm/dl (6.4-8.2) Albumin 4.0 gm/dl (3.4-5.0) Lipase 194 U/L (73-393) Lactic Acid Level 1.5 mmol/L (0.4-2.0) Laboratory results reviewed by me Medications Administered Medications (Trade) Dose Ordered Sig/Jaime Route Start Time Stop Time Status Last Admin Dose Admin Sodium Chloride 1,000 ml @ 999 mls/hr Q1H1M STAT IV 06/08/17 20:03 06/08/17 21:03 DC 06/08/17 20:03 999 MLS/HR Ondansetron HCl (Zofran Inj) 4 mg NOW STAT IV 06/08/17 20:03 06/08/17 20:06 DC 06/08/17 20:41 4 MG Morphine Sulfate (MoRPHine SULFATE INJ) 6 mg NOW STAT IV 06/08/17 20:03 06/08/17 20:06 DC 06/08/17 20:41 6 MG Oxycodone HCl (Roxicodone Immediate Rel Tab) 10 mg NOW STAT PO 06/08/17 21:47 06/08/17 21:49 DC 06/08/17 22:09 10 MG Ibuprofen (Motrin Tab) 800 mg STK-MED ONCE .ROUTE 06/08/17 22:58 06/08/17 22:59 DC 06/08/17 23:02 800 MG ED Course 2001: The patient was evaluated in room B05. A complete history and physical exam was performed. 2002: Ordered Morphine Sulfate 6mg IV, Ondansetron HCl 4mg IV, Sodium Chloride 1000 ml @ 999 mls/hr IV 2104: Post void bladder scan revealed 39cc, so no retention. 2146: Ordered Oxycodone HCl 10mg PO 2224: I reevaluated the patient. Discussed results and discharge instructions: he verbalized understanding and agreement. The patient is ready for discharge when he received his medication. 2241: Ordered Ibuprofen 800mg PO Medical Decision I reviewed the patient's past medical history, medications, and the nursing notes as described above. Differential diagnosis: UTI, pyelonephritis, renal stone, bladder outlet obstruction. The patient is a 37 y/o gentlemen currently incarcerated with h/o of renal stones and recent right ureteral stent placement who presents to the ED with worsening lower abdominal pain for the past 2 days per HPI. On arrival the patient appears uncomfortable, diaphoretic with mild suprapubic fullness and ttp. HR 140s on arrival but improved to 80-90s with IVF hydration. Patient able to urinate with post-void residual >100 thus no urinary retention. UA with +LE but only 1-5 WBCs and no bacteria. WBC [address] abd/pel with b/l nephrolithiasis without hydro and 2 mm calculus/fragment within the proximal right ureter. Patient feeling improved after IVF and analgesia. Sx possible 2/2 bladder spasm vs UTI. Given patient has been on cipro through assisted provider may explain negative urine today. Given no obstruction and improvement after IVF not indication for admission at this time. Findings and plan for urology follow-up reviewed patient. Patient agreeable and d/c'd per discharge instructions. Medication Reconcilliation Current Medication List: was personally reviewed by me Blood Pressure Screening Patient's blood pressure: Elevated blood pressure Blood pressure disposition: Elevated BP felt to be situational Impression Primary Impression: Ureteral calculi Scribe Attestation The scribe's documentation has been prepared under my direction and personally reviewed by me in its entirety. I confirm that the note above accurately reflects all work, treatment, procedures, and medical decision making performed by me. Departure Information Dispostion Home / Self-Care Prescriptions Ibuprofen Tab (MOTRIN) 800 Mg Tab 800 MG PO Q8H Y for Pain for 10 Days, #30 TAB Prov: Papo Wong M.D. 06/08/17 Referrals [facility] (PCP) Joe Baig MD Patient Instructions Kidney Stones, My [facility] Additional Instructions Please follow up your urologist, Dr. Baig, by calling to confirm your follow up for re-evaluation concerning your recent ureteral stent. Your symptoms may have been due to a bladder spasm from may migrating stone or from a UTI which appears to be treated appropriately at this time with ciprofloxacin. Otherwise, your exam, CT scan and lab results did not show signs of an emergent condition at this time. Take ibuprofen for pain as needed. Continue your current medications including your ciprofloxacin. Return to the emergency department for worsening symptoms as described in the accompanying instructions.
[2017-06-08 20:47] LABS: HEMATOCRIT 48.3 % (42-52); MEAN CORPUSCULAR HEMOGLOBIN 30.6 pg (25-34); MEAN CORPUSCULAR HGB CONC 34.8 g/dl (32-36); MEAN PLATELET VOLUME 9.1 fL (7.4-10.4); PLATELET COUNT 332 K/uL (130-400); RED BLOOD COUNT 5.49 M/uL (4.7-6.1); WHITE BLOOD COUNT 13.31 K/uL (4.8-10.8)
[2017-06-08 20:49] LABS: URINE APPEARANCE CLOUDY (CLEAR); URINE BILIRUBIN NEG (NEG); URINE COLOR YELLOW; URINE NITRITE NEG (NEG); URINE SPECIFIC GRAVITY 1.015 (1.000-1.030); UROBILINOGEN NEG (NEG); ZZUR CULT IF INDIC CLEAN CATCH NO
[2017-06-08 20:50] LABS: MANUAL MICROSCOPIC REQUIRED? NO; REVIEW REQ? NO
[2017-06-08 21:04] LABS: ALT/SGPT 65 U/L (12-78); BLOOD UREA NITROGEN 13 mg/dl (7-18); BUN/CREATININE RATIO 10.6 (10-20); CALCIUM 9.7 mg/dl (8.5-10.1); CARBON DIOXIDE 24 mmol/L (21-32); CHLORIDE 107 mmol/L (98-107); CREATININE 1.22 mg/dl (0.60-1.40); GLUCOSE 107 mg/dl (70-99); POTASSIUM 3.8 mmol/L (3.5-5.1); SODIUM 138 mmol/L (136-145)
[2017-06-08 21:07] LABS: ALKALINE PHOSPHATASE 73 U/L (45-117); AST/SGOT 41 U/L (15-37)
[2017-06-08 21:34] LABS: BASO % 0.7 %; BASO ABS # 0.09 K/uL (0-0.2); COMPLETE YES; EOS % 1.2 %; IG% 0.8 %; LYMPH ABS # 5.46 K/uL (1.2-3.4); MONO % 7.8 %; NEUT % 48.5 %
--- NOTE | 2017-06-08 21:35 | DIAGNOSTIC IMAGING REPORT ---
CT OF THE ABDOMEN AND PELVIS WITH CONTRAST CLINICAL HISTORY: Suprapubic pain. Known kidney stone. COMPARISON STUDY: CT of the abdomen and pelvis May 28, 2017. TECHNIQUE: Following IV administration of 94 mL of Optiray-320, axial images of the abdomen and pelvis were obtained from the lung bases to the proximal femurs. Images were reviewed in the axial, sagittal, and coronal planes. IV contrast was administered without complication. A dose lowering technique was utilized adhering to the principles of ALARA. CT DOSE: 1096.62 mGy.cm FINDINGS: A right ureteral stent is in place. There is no hydronephrosis. There is a suspected punctate 2 mm calculus/fragment along the proximal aspect of the right ureteral stent. An 8 mm calculus is now within the lower pole of the right kidney. No additional ureteral calculi/fragments are present. There are are multiple bilateral renal calculi. Fatty infiltration of the liver is noted. A 1.4 cm enhancing right hepatic lobe lesion is unchanged from earlier exams and is benign given stability. A 5 mm right lower lobe pulmonary nodule is also unchanged from earlier studies. This is benign given stability. There is no evidence for a bowel obstruction. Caliber and wall thickness of small and large bowel are normal. The appendix is normal. No pneumatosis, free air or portal venous gas is present. There is a small fat-containing left inguinal hernia. There is no lymphadenopathy. No suspicious osseous lesions are present. Both nephrograms are symmetric. IMPRESSION: 1. Right ureteral stent in place. No hydronephrosis. 2 mm calculus/fragment within the proximal right ureter. No additional ureteral calculi or fragments. 2. Bilateral nephrolithiasis. 3. Normal appendix. No bowel obstruction. Electronically signed by: Josh Zhou M.D. 06/08/2017 9:34 PM Dictated Date/Time: 06/08/2017 9:25 PM
[2017-06-08] MEDS ORDERED: OXYCODONE HCL IR 5 MG TAB (IMMEDIATE RELEASE) PO STA (21:47)
[2017-06-08] MEDS ORDERED: IBUP-1451 PO (22:38)
[2017-06-08] MEDS ORDERED: IBUPROFEN 600 MG TAB PO STA (22:42)
[2017-06-08] MEDS ORDERED: IBUPROFEN 800 MG TAB ONE (22:58)
[2017-06-08 23:03] VITALS: BP 126/72; PULSE 94; O2SAT 94
== END 2017-06-08 23:05 | disposition home or self-care (01) ==
LOC: C.EDB 19:31
DX: N20.1 Calculus of ureter (principal); F15.10 Other stimulant abuse, uncomplicated; F60.2 Antisocial personality disorder; F12.90 Cannabis use, unspecified, uncomplicated; M54.6 Pain in thoracic spine; G89.29 Other chronic pain; F33.9 Major depressive disorder, recurrent, unspecified; F11.20 Opioid dependence, uncomplicated; F43.10 Post-traumatic stress disorder, unspecified; Z87.442 Personal history of urinary calculi; Z96.0 Presence of urogenital implants; Z87.891 Personal history of nicotine dependence

== ENCOUNTER 2017-06-20 14:26 | Emergency (ER) | payer OTHER ==
[~2017-06-20] VITALS: Ht 162.6 cm; Wt 110.2 kg
[2017-06-20 14:49] VITALS: TEMP 37; Ht 162.6 cm; Wt 110.2 kg
[2017-06-20] MEDS ORDERED: MoRPHine SULFATE 10 MG/ML CARP/VIAL IV STA (14:51)
[2017-06-20] MEDS ORDERED: SODIUM CHLORIDE 0.9% 1000ML 1,000 ML IV STA (14:51)
[2017-06-20] MEDS ORDERED: ONDANSETRON INJ 2 MG/ML 2 ML VIAL IV STA (14:51)
[2017-06-20 15:30] LABS: BASO % 0.5 %; BASO ABS # 0.05 K/uL (0-0.2); COMPLETE YES; EOS % 1.1 %; IG% 0.4 %; LYMPH % 32.8 %; LYMPH ABS # 3.16 K/uL (1.2-3.4); MEAN CELL VOLUME 89.1 fL (80-100); MEAN CORPUSCULAR HEMOGLOBIN 30.9 pg (25-34); MEAN CORPUSCULAR HGB CONC 34.6 g/dl (32-36); MEAN PLATELET VOLUME 9.1 fL (7.4-10.4); MONO % 10.1 %; NEUT % 55.1 %; PLATELET COUNT 284 K/uL (130-400); WHITE BLOOD COUNT 9.64 K/uL (4.8-10.8)
[2017-06-20 15:51] LABS: BUN/CREATININE RATIO 10.7 (10-20); CALCIUM 8.9 mg/dl (8.5-10.1); CREATININE 1.27 mg/dl (0.60-1.40); POTASSIUM 4.1 mmol/L (3.5-5.1)
--- NOTE | 2017-06-20 15:51 | DIAGNOSTIC IMAGING REPORT ---
KUB CLINICAL HISTORY: Right flank pain. Stones. Stent. COMPARISON STUDY: CT of the abdomen and pelvis June 08, 2017. FINDINGS: A right ureteral stent is in place. Bilateral nephrolithiasis is unchanged including a 1.1 cm calculus within lower pole of the right kidney. There is a possible faint 4 mm calcification/fragment within the proximal right ureter which is similar position to CT of June 08, 2017. Pelvic calcifications reflect phleboliths. IMPRESSION: 1. Right ureteral stent in place. Suspected 4 mm calculus/fragment within the proximal right ureter which is similar in position to CT of June 08, 2017. 2. No change in bilateral nephrolithiasis. Electronically signed by: Josh Zhou M.D. 06/20/2017 3:49 PM Dictated Date/Time: 06/20/2017 3:45 PM
--- NOTE | 2017-06-20 15:52 | EMERGENCY ROOM VISIT NOTE ---
History First contact with patient: 14:37 Chief Complaint: FLANK PAIN Stated Complaint: RIGHT SIDE/BLOOD IN URINE History of Present Illness The patient is a 37 year old male who presents to the Emergency Room accompanied by correctional officers with complaints of right flank pain and hematuria. The patient reports that he has a right-sided kidney stone which has not passed. He has been here multiple times in the past few months for this. The patient states that he had a stent inserted into the right kidney on May 26 of this year. He was seen here most recently on the and was told that he has a 2-3 mm stone in the right ureter. He has been increasing fluid intake but has not been able to pass the stone. The patient reports he has also had diarrhea since the stent was inserted. Patient states that he has had blood in his urine since the stent was placed, but he feels he has had "excessive" blood recently. He reports a history of kidney stones. He is currently a prisoner and states that he is unsure when his next follow-up with urology is. He denies any fevers/chills. He has had nausea, but no vomiting. Review of Systems A complete 10 point review of systems was reviewed with the patient with pertinent positives and negatives as per history of present illness. All else were negative. Past Medical/Surgical History Medical Problems: (1) Acute gastroenteritis (2) ACUTE PANCREATITIS (3) Amphetamine abuse (4) Antisocial personality disorder (5) CALCULUS OF KIDNEY (6) Cannabis use disorder, mild, abuse (7) Cholecystectomy (8) Chronic back pain (9) Flank pain (10) Gallbladder problem (11) Kidney stone (12) Major depressive disorder, recurrent severe without psychotic features (13) Nephrolithiasis (14) NONINF GASTROENTERIT NEC (15) Opiate dependence (16) POIS-SEDATIVE/HYPNOT NEC (17) PTSD (post-traumatic stress disorder) (18) Spasm of back muscles (19) Thoracic back pain (20) Tobacco use disorder (21) Ureteral calculi Surgical Problems: (1) History of cholecystectomy (2) History of renal stent Social History Problems: (1) Stomach problems Family History Patient reports no known family medical history. Social History Smoking Status: Former Smoker Alcohol Use: none Drug Use: marijuana, other Marital Status: in relationship Housing Status: other Occupation Status: other Current/Historical Medications Scheduled Escitalopram Oxalate (Lexapro), 20 MG PO DAILY Prazosin Hcl (Minipress), 2 MG PO BID Tamsulosin HCl (Tamsulosin HCl), 0.4 MG PO QAM Trazodone Hcl (Desyrel), 150 MG PO HS Scheduled PRN Hydroxyzine Pamoate (Vistaril), 50 MG PO TID PRN for PRN Ibuprofen (Ibuprofen), 1 TAB OR Q8 PRN for Pain Physical Exam Vital Signs Date Time Temp Pulse Resp B/P (MAP) Pulse Ox O2 Delivery O2 Flow Rate FiO2 06/20/17 18:16 93 18 139/108 95 06/20/17 17:41 90 18 121/81 94 Room Air 06/20/17 16:19 98 22 153/89 95 Room Air 06/20/17 15:22 98 20 165/97 95 Room Air 06/20/17 14:49 37.0 95 20 150/118 97 Room Air 06/20/17 14:34 37.0 95 20 97 Room Air Physical Exam VITALS: Vitals are noted on the nurse's note and reviewed by myself. Vital signs stable. GENERAL: This is a 37-year-old male, in no acute distress but appears uncomfortable, well-developed well-nourished. NECK: Supple without nuchal rigidity. HEART: Regular rate and rhythm without murmurs gallops or rubs. LUNGS: Clear to auscultation bilaterally without wheezes, rales or rhonchi. ABDOMEN: Positive bowel sounds x 4. Right upper quadrant, right lower quadrant and suprapubic tenderness tenderness. No guarding or rebound tenderness. There is right-sided CVA tenderness. NEURO: Patient was alert and oriented to person place and time. Medical Decision & Procedures ER Provider Diagnostic Interpretation: KUB FINDINGS: A right ureteral stent is in place. Bilateral nephrolithiasis is unchanged including a 1.1 cm calculus within lower pole of the right kidney. There is a possible faint 4 mm calcification/fragment within the proximal right ureter which is similar position to CT of June 08, 2017. Pelvic calcifications reflect phleboliths. IMPRESSION: 1. Right ureteral stent in place. Suspected 4 mm calculus/fragment within the proximal right ureter which is similar in position to CT of June 08, 2017. 2. No change in bilateral nephrolithiasis. (RENAL)RETROPERITON COMP FINDINGS: The right kidney measures 11.8 x 5.6 x 5.5 cm. At least two right-sided renal calculi are seen measuring up to 0.4 cm. Right-sided ureteral stent again noted terminating in the bladder lumen. No hydronephrosis. Left kidney measures 10.8 x 6.4 x 4.7 cm. At least 2 left-sided renal calculi are seen, largest of which measures up to 0.3 cm. No hydronephrosis. Urinary bladder is partially collapsed with bilateral ureteral jets documented. IMPRESSION: 1. Right-sided ureteral stent again noted without hydronephrosis. 2. Bilateral nephrolithiasis. Laboratory Results 06/20/17 15:10 Red Blood Count 4.60, Mean Corpuscular Volume 89.1, Mean Corpuscular Hemoglobin 30.9, Mean Corpuscular Hemoglobin Concent 34.6, Mean Platelet Volume 9.1, Neutrophils (%) (Auto) 55.1, Lymphocytes (%) (Auto) 32.8, Monocytes (%) (Auto) 10.1, Eosinophils (%) (Auto) 1.1, Basophils (%) (Auto) 0.5, Neutrophils # (Auto ) 5.31, Lymphocytes # (Auto) 3.16, Monocytes # (Auto) 0.97, Eosinophils # (Auto ) 0.11, Basophils # (Auto) 0.05 06/20/17 15:10 Test 06/20/17 15:10 06/20/17 15:25 White Blood Count 9.64 K/uL (4.8-10.8) Red Blood Count 4.60 M/uL (4.7-6.1) Hemoglobin 14.2 g/dL (14.0-18.0) Hematocrit 41.0 % (42-52) Mean Corpuscular Volume 89.1 fL (80-100) Mean Corpuscular Hemoglobin 30.9 pg (25-34) Mean Corpuscular Hemoglobin Concent 34.6 g/dl (32-36) Platelet Count 284 K/uL (130-400) Mean Platelet Volume 9.1 fL (7.4-10.4) Neutrophils (%) (Auto) 55.1 % Lymphocytes (%) (Auto) 32.8 % Monocytes (%) (Auto) 10.1 % Eosinophils (%) (Auto) 1.1 % Basophils (%) (Auto) 0.5 % Neutrophils # (Auto) 5.31 K/uL (1.4-6.5) Lymphocytes # (Auto) 3.16 K/uL (1.2-3.4) Monocytes # (Auto) 0.97 K/uL (0.11-0.59) Eosinophils # (Auto) 0.11 K/uL (0-0.5) Basophils # (Auto) 0.05 K/uL (0-0.2) RDW Standard Deviation 41.9 fL (36.4-46.3) RDW Coefficient of Variation 13.0 % (11.5-14.5) Immature Granulocyte % (Auto) 0.4 % Immature Granulocyte # (Auto) 0.04 K/uL (0.00-0.02) Anion Gap 6.0 mmol/L (3-11) Est Creatinine Clear Calc Drug Dose 90.6 ml/min Estimated GFR () 83.7 Estimated GFR (Non- 72.2 BUN/Creatinine Ratio 10.7 (10-20) Calcium Level 8.9 mg/dl (8.5-10.1) Total Bilirubin 0.3 mg/dl (0.2-1) Aspartate Amino Transf (AST/SGOT) 27 U/L (15-37) Alanine Aminotransferase (ALT/SGPT) 63 U/L (12-78) Alkaline Phosphatase 59 U/L (45-117) Total Protein 7.6 gm/dl (6.4-8.2) Albumin 3.6 gm/dl (3.4-5.0) Globulin 4.0 gm/dl (2.5-4.0) Albumin/Globulin Ratio 0.9 (0.9-2) Lipase 165 U/L (73-393) Urine Color FELISA Urine Appearance CLOUDY (CLEAR) Urine pH 5.5 (4.5-7.5) Urine Specific [place] 1.029 (1.000-1.030) Urine Protein 3+ (NEG) Urine Glucose (UA) NEG (NEG) Urine Ketones NEG (NEG) Urine Occult Blood 3+ (NEG) Urine Nitrite NEG (NEG) Urine Bilirubin NEG (NEG) Urine Urobilinogen NEG (NEG) Urine Leukocyte Esterase SMALL (NEG) Urine WBC (Auto) 0 /hpf (0-5) Urine RBC (Auto) 5-10 /hpf (0-4) Urine Hyaline Casts (Auto) 0 /lpf (0-5) Urine Epithelial Cells (Auto) 0-5 /lpf (0-5) Urine Bacteria (Auto) NEG (NEG) Medications Administered Medications (Trade) Dose Ordered Sig/Jaime Route Start Time Stop Time Status Last Admin Dose Admin Sodium Chloride 1,000 ml @ 999 mls/hr Q1H1M STAT IV 06/20/17 14:51 06/20/17 15:51 DC 06/20/17 15:21 999 MLS/HR Ondansetron HCl (Zofran Inj) 4 mg NOW STAT IV 06/20/17 14:51 06/20/17 14:55 DC 06/20/17 15:17 4 MG Morphine Sulfate (MoRPHine SULFATE INJ) 6 mg NOW STAT IV 06/20/17 14:51 06/20/17 14:55 DC 06/20/17 15:18 6 MG Hydromorphone HCl (Dilaudid Inj) 1 mg NOW STAT IV 06/20/17 16:31 06/20/17 16:32 DC 06/20/17 16:35 1 MG ED Course The patient was evaluated as above. Labs were drawn and IV access was obtained. Patient was medicated with 1 L normal saline solution, 4 mg Zofran and 6 mg morphine. KUB and ultrasound was performed and read by radiology as above. Patient was reevaluated and was having increased pain. He was given 1 mg Dilaudid IV. Discharge instructions were reviewed with the patient. The patient verbalized understanding of my assessment and treatment plan and was discharged home in good condition. Medical Decision Differential diagnosis includes UTI, pyelonephritis, obstructing renal calculus , stent irritation, among others. The patient is a 37-year-old male who presents today complaining of right flank pain. Labs revealed no leukocytosis, anemia or concerning electrolyte abnormalities. Creatinine is within normal limits. Urinalysis was not suggestive of infection. KUB and ultrasound show a persistent right ureteral calculus. The patient has had a stent in place for almost 4 weeks. He is currently a prisoner and has not had a follow-up with urology. I attempted to contact the on-call provider from the long-term, however was not able to reach them despite several calls. I did ask case management to call them tomorrow to speak with them regarding follow-up for the patient. I do feel he should see urology soon for definitive care. He was treated with IV pain medication in the emergency department and discharged back to the long-term. The patient's case was reviewed with Dr. Osman, ED attending physician, who agreed with my assessment and treatment plan. Medication Reconcilliation Current Medication List: was personally reviewed by me Blood Pressure Screening Patient's blood pressure: Elevated blood pressure Blood pressure disposition: Elevated BP felt to be situational Impression Primary Impression: Right ureteral calculus Departure Information Dispostion Other (Correctional facility) Condition GOOD Referrals [facility] (PCP) Patient Instructions [facility] Additional Instructions You should have follow up with urology within one week. Continue Tylenol and ibuprofen for pain control. Return here for vomiting, fevers, or any other worsening or new/concerning symptoms.
[2017-06-20 15:54] LABS: ALB/GLOB RATIO 0.9 (0.9-2)
[2017-06-20 15:56] LABS: URINE APPEARANCE CLOUDY (CLEAR); URINE BILIRUBIN NEG (NEG); URINE EPITHELIAL CELL AUTO 0-5 /lpf (0-5); URINE NITRITE NEG (NEG); URINE PH 5.5 (4.5-7.5); URINE SPECIFIC GRAVITY 1.029 (1.000-1.030); UROBILINOGEN NEG (NEG); ZZUR CULT IF INDIC CLEAN CATCH NO
[2017-06-20 16:02] LABS: MANUAL MICROSCOPIC REQUIRED? NO; REVIEW REQ? NO; URINE COLOR AMBER
--- NOTE | 2017-06-20 16:16 | DIAGNOSTIC IMAGING REPORT ---
(RENAL)RETROPERITON COMP HISTORY: 37 years-old Male right flank pain, stones, stent in place acute right flank pain with bilateral nephrolithiasis. COMPARISON: CT abdomen and pelvis 06/08/2017, renal ultrasound 05/26/2017 TECHNIQUE: Multiple real-time sonographic images of the kidneys and urinary bladder were obtained assessing grayscale appearance and color flow. FINDINGS: The right kidney measures 11.8 x 5.6 x 5.5 cm. At least two right-sided renal calculi are seen measuring up to 0.4 cm. Right-sided ureteral stent again noted terminating in the bladder lumen. No hydronephrosis. Left kidney measures 10.8 x 6.4 x 4.7 cm. At least 2 left-sided renal calculi are seen, largest of which measures up to 0.3 cm. No hydronephrosis. Urinary bladder is partially collapsed with bilateral ureteral jets documented. IMPRESSION: 1. Right-sided ureteral stent again noted without hydronephrosis. 2. Bilateral nephrolithiasis. The above report was generated using voice recognition software. It may contain grammatical, syntax or spelling errors. Electronically signed by: Kermit Schulte M.D. 06/20/2017 4:15 PM Dictated Date/Time: 06/20/2017 4:11 PM
[2017-06-20] MEDS ORDERED: HYDROmorphone INJ 1 MG/ML SYR IV STA (16:31)
[2017-06-20 18:16] VITALS: BP 139/108; PULSE 93; O2SAT 95
== END 2017-06-20 18:15 | disposition home or self-care (01) ==
LOC: C.EDB 14:28 → C.EDC 18:15
DX: N20.1 Calculus of ureter (principal); K82.9 Disease of gallbladder, unspecified; K86.1 Other chronic pancreatitis; F32.9 Major depressive disorder, single episode, unspecified; G89.29 Other chronic pain; Z87.442 Personal history of urinary calculi; Z87.19 Personal history of other diseases of the digestive system; Z90.49 Acquired absence of other specified parts of digestive tract; Z98.890 Other specified postprocedural states; Z79.899 Other long term (current) drug therapy

== ENCOUNTER 2017-11-24 10:39 | Emergency (ER) | payer SELFPAY ==
[~2017-11-24] VITALS: Ht 162.6 cm; Wt 119.0 kg
[2017-11-24 10:51] VITALS: TEMP 36.8; Ht 162.6 cm; Wt 119.0 kg
[2017-11-24] MEDS ORDERED: DiphenhydrAMINE HCL 50 MG/ML VIAL IV STA (11:18)
[2017-11-24] MEDS ORDERED: PROCHLORPERAZINE 5 MG/ML 2 ML VIAL IV STA (11:18)
[2017-11-24] MEDS ORDERED: DEXAMETHASONE SOD INJ 4 MG/ML VIAL IV STA (11:18)
[2017-11-24] MEDS ORDERED: SODIUM CHLORIDE 0.9% 1000ML 1,000 ML IV STA (11:18)
[2017-11-24] MEDS ORDERED: KETOROLAC TROMETHAMINE 30 MG/ML VIAL IV STA (11:18)
[2017-11-24 11:33] LABS: BASO % 0.4 %; BASO ABS # 0.03 K/uL (0-0.2); EOS % 1.8 %; EOS ABS # 0.15 K/uL (0-0.5); HEMATOCRIT 41.9 % (42-52); HEMOGLOBIN 14.6 g/dL (14.0-18.0); IG# 0.04 K/uL (0.00-0.02); LYMPH % 36.5 %; LYMPH ABS # 3.07 K/uL (1.2-3.4); MEAN CELL VOLUME 88.6 fL (80-100); MEAN CORPUSCULAR HEMOGLOBIN 30.9 pg (25-34); MEAN CORPUSCULAR HGB CONC 34.8 g/dl (32-36); MEAN PLATELET VOLUME 9.5 fL (7.4-10.4); MONO ABS # 0.67 K/uL (0.11-0.59); NEUT % 52.8 %; NEUT ABS # 4.46 K/uL (1.4-6.5); PLATELET COUNT 291 K/uL (130-400); RED CELL DISTRIBUTION WIDTH CV 14.4 % (11.5-14.5); RED CELL DISTRIBUTION WIDTH SD 46.8 fL (36.4-46.3); WHITE BLOOD COUNT 8.42 K/uL (4.8-10.8)
[2017-11-24 11:49] LABS: ALBUMIN 3.5 gm/dl (3.4-5.0); ALT/SGPT 101 U/L (12-78); AST/SGOT 52 U/L (15-37); BLOOD UREA NITROGEN 12 mg/dl (7-18); CALCIUM 9.2 mg/dl (8.5-10.1); CARBON DIOXIDE 25 mmol/L (21-32); CREATININE 1.34 mg/dl (0.60-1.40); GLUCOSE 220 mg/dl (70-99); POTASSIUM 3.8 mmol/L (3.5-5.1); SODIUM 138 mmol/L (136-145)
[2017-11-24 12:00] LABS: ALKALINE PHOSPHATASE 60 U/L (45-117); TOTAL PROTEIN 7.5 gm/dl (6.4-8.2)
--- NOTE | 2017-11-24 12:01 | DIAGNOSTIC IMAGING REPORT ---
CT SCAN OF THE BRAIN WITHOUT IV CONTRAST CLINICAL HISTORY: Headache. COMPARISON STUDY: CT of the brain dated 01/28/2012, TECHNIQUE: Unenhanced axial CT scan of the brain is performed from the vertex to the skull base. A dose lowering technique was utilized adhering to the principles of ALARA. CT DOSE: 788.63 mGycm FINDINGS: Brain parenchyma: The brain parenchyma is normal in appearance. There is no hemorrhage, mass effect, or evidence of acute territorial ischemia by CT criteria. [place]ieto-white matter is preserved. No extra-axial fluid collection is seen. Ventricles, sulci, cisterns: Normal in configuration. Intracranial vasculature: The visualized intracranial vasculature at the skull base is normal in appearance. Calvarium: Unremarkable. Sinuses and mastoids: The visualized paranasal sinuses are clear. The mastoid air cells are well pneumatized. Orbits: The bony orbits are grossly intact. IMPRESSION: No acute intracranial abnormality. Electronically signed by: Xavi Michelle M.D. 11/24/2017 12:00 PM Dictated Date/Time: 11/24/2017 11:57 AM
[2017-11-24] MEDS ORDERED: IBUP-1277 PO (13:31)
[2017-11-24 13:48] VITALS: BP 162/104; PULSE 64; O2SAT 96
--- NOTE | 2017-11-24 18:56 | EMERGENCY ROOM VISIT NOTE ---
ED Visit Note First contact with patient: 11:01 CHIEF COMPLAINT: Headache. HISTORY OF PRESENT ILLNESS: Mr. Napoles is a 37 year-old white male who ambulates into the ED complaining of a severe headache. Historically patient reports she has no history of headaches. He reports a gradual onset of a severe headache that started approximately 36 hours ago when he was at rest. The pain is constant and it is slowly increasing in severity. This is the worst headache of the life and nothing like any previous headaches he has had in the past. Currently he describes the headache as a pressure/knot sensation sensation/pain in the left occipital area. He rates the pain a 9/10. The pain is nonradiating. He reports taking ibuprofen the first 12 hours without relief of pain and has not taken any additional medications. Pain increases with simple movements of the head, exposure to loud sounds, exposure to light. He has not identified any alleviating factors related to the pain. There is been associated light sensitivity, nausea and vomiting. He denies recent head trauma, fever, chills, sweats, skin eruptions, skin color changes, upper respiratory tract symptoms including sinus congestion, sore throat, neck/back pain/stiffness, recent dental trauma, abnormal neurological symptoms including visual changes, hearing changes, difficulty speaking, difficulty swallowing, difficulty ambulating, chest pain, shortness of breath, abdominal pain, extremity weakness/numbness/tingling no weakness or numbness of the extremities. REVIEW OF SYSTEMS: As noted above in History of Present Illness; all body systems were reviewed with the patient and found to be negative unless noted above otherwise. PAST MEDICAL HISTORY: (1) Acute gastroenteritis (2) ACUTE PANCREATITIS (3) Amphetamine abuse (4) Antisocial personality disorder (5) CALCULUS OF KIDNEY (6) Cannabis use disorder, mild, abuse (7) Cholecystectomy (8) Chronic back pain (9) Flank pain (10) Gallbladder problem (11) Kidney stone (12) Major depressive disorder, recurrent severe without psychotic features (13) Nephrolithiasis (14) NONINF GASTROENTERIT NEC (15) Opiate dependence (16) POIS-SEDATIVE/HYPNOT NEC (17) PTSD (post-traumatic stress disorder) (18) Spasm of back muscles (19) Thoracic back pain (20) Tobacco use disorder (21) Ureteral calculi Surgical Problems: (1) History of cholecystectomy (2) History of renal stent CURRENT MEDICATIONS: Patient denies. ALLERGIES TO MEDICATIONS: Patient denies. SOCIAL HISTORY: Patient is not employed; he feels safe in his home environment; he denies alcohol use, admits to tobacco use and denies illicit drug use. PHYSICAL EXAM: Vital Signs: Date Time Temp Pulse Resp B/P (MAP) Pulse Ox O2 Delivery O2 Flow Rate FiO2 11/24/17 13:48 64 16 162/104 96 Room Air 11/24/17 12:50 60 16 152/101 96 Room Air 11/24/17 10:51 36.8 78 18 152/103 98 Room Air GENERAL: 37 year-old white female in moderate distress due to pain, afebrile and hemodynamically stable. Found lying in a darkened room with sunglasses on. NEUROLOGIC: Awake, alert and oriented to person place and time. Answering questions appropriately and following commands. Cranial nerves II-XII grossly intact. Deep tendon reflexes 2+ and bilaterally symmetric. No focal neurologic deficits noted. SKIN: Warm, dry and pink. No rashes, lesions or soft tissue trauma noted. HEENT: Normocephalic, atraumatic. Pupils equal, round and reactive. Extraocular movements intact and there is no nystagmus. Sclera anicteric. Ears , nose and oropharynx clear. The patient is photophobic, precluding funduscopic examination/ptic fundi are normal and the discs are flat. NECK: Soft and supple. No tenderness through the central cervical region or cervical musculature. Negative Kernigs and negative Brudzinski signs. No lymphadenopathy, jugular venous distention, or bruits noted. THORAX: Lungs clear to auscultation and equal bilaterally with no wheezing, crackles, rhonchi or stridor and equal chest wall movements. HEART: Regular rate and rhythm with no murmurs, rubs or gallops. ABDOMEN: Soft and nontender with bowel sounds present in all quadrants; no rigidity, rebound tenderness, organomegaly or guarding. MUSCULOSKELETAL: Full range of motion of all joints without any significant discomfort and the gait is normal. ED COURSE: Patient is assessed as noted above. Patient's medication list was reviewed. Laboratory Testing: Test 11/24/17 11:20 Range/Units White Blood Count 8.42 4.8-10.8 K/uL Red Blood Count 4.73 4.7-6.1 M/uL Hemoglobin 14.6 14.0-18.0 g/dL Hematocrit 41.9 42-52 % Mean Corpuscular Volume 88.6 80-100 fL Mean Corpuscular Hemoglobin 30.9 25-34 pg Mean Corpuscular Hemoglobin Concent 34.8 32-36 g/dl Platelet Count 291 130-400 K/uL Mean Platelet Volume 9.5 7.4-10.4 fL Neutrophils (%) (Auto) 52.8 % Lymphocytes (%) (Auto) 36.5 % Monocytes (%) (Auto) 8.0 % Eosinophils (%) (Auto) 1.8 % Basophils (%) (Auto) 0.4 % Neutrophils # (Auto) 4.46 1.4-6.5 K/uL Lymphocytes # (Auto) 3.07 1.2-3.4 K/uL Monocytes # (Auto) 0.67 0.11-0.59 K/uL Eosinophils # (Auto) 0.15 0-0.5 K/uL Basophils # (Auto) 0.03 0-0.2 K/uL RDW Standard Deviation 46.8 36.4-46.3 fL RDW Coefficient of Variation 14.4 11.5-14.5 % Immature Granulocyte % (Auto) 0.5 % Immature Granulocyte # (Auto) 0.04 0.00-0.02 K/uL Erythrocyte Sedimentation Rate 25 0-14 mm/hr Urine Color YELLOW Urine Appearance CLEAR CLEAR Urine pH 5.5 4.5-7.5 Urine Specific [place] 1.020 1.000-1.030 Urine Protein NEG NEG Urine Glucose (UA) 2+ NEG Urine Ketones NEG NEG Urine Occult Blood NEG NEG Urine Nitrite NEG NEG Urine Bilirubin NEG NEG Urine Urobilinogen NEG NEG Urine Leukocyte Esterase NEG NEG Sodium Level 138 136-145 mmol/L Potassium Level 3.8 3.5-5.1 mmol/L Chloride Level 106 98-107 mmol/L Carbon Dioxide Level 25 21-32 mmol/L Anion Gap 7.0 3-11 mmol/L Blood Urea Nitrogen 12 7-18 mg/dl Creatinine 1.34 0.60-1.40 mg/dl Est Creatinine Clear Calc Drug Dose 89.6 ml/min Estimated GFR () 78.4 Estimated GFR (Non- 67.7 BUN/Creatinine Ratio 8.9 10-20 Random Glucose 220 70-99 mg/dl Calcium Level 9.2 8.5-10.1 mg/dl Total Bilirubin 0.3 0.2-1 mg/dl Direct Bilirubin < 0.1 0-0.2 mg/dl Aspartate Amino Transf (AST/SGOT) 52 15-37 U/L Alanine Aminotransferase (ALT/SGPT) 101 12-78 U/L Alkaline Phosphatase 60 45-117 U/L Total Protein 7.5 6.4-8.2 gm/dl Albumin 3.5 3.4-5.0 gm/dl Thyroid Stimulating Hormone (TSH) 2.250 0.300-4.500 uIu/ml Urine Opiates Screen NEG NEG Urine Methadone, Qualitative NEG NEG Urine Barbiturates NEG NEG Urine Phencyclidine (PCP) Level NEG NEG Ur Amphetamine/Methamphetamine NEG NEG MDMA (Ecstasy) Screen NEG NEG Urine Benzodiazepines Screen NEG NEG Urine Cocaine Metabolite NEG NEG Urine Marijuana (THC) NEG NEG Lyme Disease IgG Antibody NEG NEG Lyme Disease IgM Antibody NEG NEG Head CT: Was reviewed by myself and read by the radiologist showing no acute intracranial abnormalities or skull fractures. Patient was hydrated with normal saline and he received 30 mg of Toradol IV, 50 mg of Benadryl IV, 10 mg of Decadron IV and 10 mg of Compazine for his symptoms. Patient was reassessed multiple times during his stay in the emergency. Patient was educated about his condition and instructed on his treatment plan; he verbalized understanding and agreement with this plan. CLINICAL IMPRESSION: Acute headache. Hyperglycemia. DECISION MAKIN-year-old male who presents for evaluation of headache. He is afebrile, well appearing, and hemodynamically stable. He has no signs of a sinus, dental, or ear infection and no evidence of meningismus. He is neurologically intact. I do not suspect a headache to be secondary to a subarachnoid hemorrhage, meningitis, encephalitis, or intracranial mass lesion. DISPOSITION: Patient was discharged to home in stable condition accompanied by accompanied by female friend; prior to departure he was reassessed and subjectively reported he is feeling much better and rated his overall discomfort 3/10. He also reported resolution of nausea. DISCHARGE INSTRUCTIONS: Patient was encouraged alternate ibuprofen and acetaminophen every 3 hours as needed for pain. Patient was encouraged to stay well-hydrated. Patient was encouraged to avoid alcohol use. Patient was encouraged to follow-up with his PCP for his headache and his hyperglycemia. Patient was encouraged return the ED for worsening headache, fevers, any new abnormal neurological symptoms or any new/concerning symptoms.
== END 2017-11-24 13:51 | disposition home or self-care (01) ==
LOC: C.EDB 10:41
DX: R51 Headache (principal); R73.9 Hyperglycemia, unspecified; F32.9 Major depressive disorder, single episode, unspecified; F43.10 Post-traumatic stress disorder, unspecified; F17.200 Nicotine dependence, unspecified, uncomplicated

== ENCOUNTER 2017-12-20 15:08 | Emergency (ER) | payer SELFPAY ==
[~2017-12-20] VITALS: Ht 162.6 cm; Wt 119.0 kg
[2017-12-20 15:10] VITALS: TEMP 36.7; Ht 162.6 cm; Wt 119.0 kg
[2017-12-20] MEDS ORDERED: SODIUM CHLORIDE 0.9% 1000ML 1,000 ML IV STA (15:36)
[2017-12-20] MEDS ORDERED: KETOROLAC TROMETHAMINE 30 MG/ML VIAL IV STA (15:36)
[2017-12-20] MEDS ORDERED: hydrOXYzine HCL 25 MG TAB PO STA (15:36)
[2017-12-20 16:00] LABS: BASO % 0.4 %; BASO ABS # 0.04 K/uL (0-0.2); EOS % 0.8 %; EOS ABS # 0.07 K/uL (0-0.5); HEMATOCRIT 41.7 % (42-52); HEMOGLOBIN 14.5 g/dL (14.0-18.0); IG# 0.07 K/uL (0.00-0.02); LYMPH % 41.2 %; LYMPH ABS # 3.77 K/uL (1.2-3.4); MEAN CELL VOLUME 87.8 fL (80-100); MEAN CORPUSCULAR HEMOGLOBIN 30.5 pg (25-34); MEAN CORPUSCULAR HGB CONC 34.8 g/dl (32-36); MEAN PLATELET VOLUME 9.4 fL (7.4-10.4); MONO % 9.8 %; NEUT ABS # 4.31 K/uL (1.4-6.5); PLATELET COUNT 308 K/uL (130-400); RED CELL DISTRIBUTION WIDTH CV 14.1 % (11.5-14.5); RED CELL DISTRIBUTION WIDTH SD 45.4 fL (36.4-46.3); WHITE BLOOD COUNT 9.16 K/uL (4.8-10.8)
[2017-12-20 16:03] LABS: ALBUMIN 3.4 gm/dl (3.4-5.0); ALT/SGPT 101 U/L (12-78); BLOOD UREA NITROGEN 9 mg/dl (7-18); CALCIUM 8.6 mg/dl (8.5-10.1); CARBON DIOXIDE 25 mmol/L (21-32); CREATININE 1.12 mg/dl (0.60-1.40); GLUCOSE 161 mg/dl (70-99); LIPASE 143 U/L (73-393); SODIUM 140 mmol/L (136-145)
[2017-12-20 16:11] LABS: ALKALINE PHOSPHATASE 71 U/L (45-117); TOTAL PROTEIN 7.6 gm/dl (6.4-8.2)
--- NOTE | 2017-12-20 16:51 | DIAGNOSTIC IMAGING REPORT ---
CHEST 2 VIEWS ROUTINE HISTORY: 37 years-old Male chest pain, dyspnea acute atypical chest pain with dyspnea COMPARISON: Chest radiograph 12/07/2013 TECHNIQUE: PA and lateral views of the chest FINDINGS: Cardiac silhouette appears be within the upper limits of normal, unchanged. Linear subsegmental bibasilar opacities favor atelectasis or scarring. There is no pneumothorax, pleural effusion, overt pulmonary edema or lobar airspace consolidation. Bones of the chest appear grossly intact. IMPRESSION: 1. No acute process. 2. Linear subsegmental bibasilar opacities favor atelectasis or scarring. The above report was generated using voice recognition software. It may contain grammatical, syntax or spelling errors. Electronically signed by: Kermit Schulte M.D. 12/20/2017 4:50 PM Dictated Date/Time: 12/20/2017 4:49 PM
--- NOTE | 2017-12-20 16:55 | EMERGENCY ROOM VISIT NOTE ---
History First contact with patient: 15:23 Chief Complaint: CHEST PAIN Stated Complaint: CHEST PAIN, DISORIENTED Nursing Triage Summary: c/o chest pain, difficulty breathing, and muffled hearing. states "may be related to anxiety". History of Present Illness The patient is a 37 year old male who presents to the Emergency Room with complaints of chest pain and dyspnea which began today while at work. The patient states he is "not feeling right". He reports bilateral sharp chest pain associated with difficulty taking a deep breath and reports a "constricted sensation". He states he went outside on his break, and upon exiting his building he began experiencing some mild lightheadedness, dizziness, and was forgetting things immediately after being told them. He states his symptoms worsened outside were also associated with muffled hearing. He describes the sensation as like being under water. He states he is continuing to experience some difficulty breathing and chest discomfort, but his symptoms have improved somewhat since arrival to the emergency department. The patient has had similar experiences in the past associated with anxiety. He has been off of his psychiatric medications for approximately 1 month. The patient has been drinking water and soda as usual today, but denies eating anything. Patient denies any family or personal history of heart disease or stroke. He does not have any history of blood clots or PE. He has not recently traveled. He is not on normal therapy. He does have a history of hypertension and is prescribed hydrochlorothiazide, however has not been taking this for approximately 1 month. Review of Systems A complete 10 point review of systems was reviewed with the patient with pertinent positives and negatives as per history of present illness. All else were negative. Past Medical/Surgical History Medical Problems: (1) Acute gastroenteritis (2) ACUTE PANCREATITIS (3) Amphetamine abuse (4) Antisocial personality disorder (5) CALCULUS OF KIDNEY (6) Cannabis use disorder, mild, abuse (7) Cholecystectomy (8) Chronic back pain (9) Flank pain (10) Gallbladder problem (11) Kidney stone (12) Major depressive disorder, recurrent severe without psychotic features (13) Nephrolithiasis (14) NONINF GASTROENTERIT NEC (15) Opiate dependence (16) POIS-SEDATIVE/HYPNOT NEC (17) PTSD (post-traumatic stress disorder) (18) Spasm of back muscles (19) Thoracic back pain (20) Tobacco use disorder (21) Ureteral calculi Surgical Problems: (1) History of cholecystectomy (2) History of renal stent Social History Problems: (1) Stomach problems Family History Patient reports no known family medical history. Social History Smoking Status: Current Every Day Smoker Smokeless Tobacco Use: No Alcohol Use: none Drug Use: marijuana, other Marital Status: single, in relationship Housing Status: lives with family, other Occupation Status: employed, other Current/Historical Medications No Active Prescriptions or Reported Meds Allergies None Physical Exam Vital Signs Date Time Temp Pulse Resp B/P (MAP) Pulse Ox O2 Delivery O2 Flow Rate FiO2 12/20/17 18:29 72 16 150/98 97 12/20/17 15:31 84 12/20/17 15:20 Room Air 12/20/17 15:20 Room Air 12/20/17 15:10 36.7 81 20 132/92 96 Room Air Physical Exam VITALS: Vitals are noted on the nurse's note and reviewed by myself. Vital signs stable. GENERAL: This is a 37-year-old white male, in no acute distress, nondiaphoretic , well-developed well-nourished. SKIN: The skin was without rashes, erythema, edema, or bruising. There is no tenting of the skin. Capillary reflex less than 2 seconds. HEAD: Normocephalic atraumatic. EARS: External auditory canals clear, tympanic membranes pearly lorenzo without erythema or effusion bilaterally. EYES: Pupils equal round and reactive to light and accommodation. Conjunctivae without injection, sclerae without icterus. Extraocular movements intact. NOSE: Patent, turbinates without inflammation or discharge. No sinus tenderness. MOUTH: Mucous membranes moist. Tonsils are not enlarged. Pharynx without erythema or exudate. Uvula midline. Airway patent. Tongue does not deviate. NECK: Supple without nuchal rigidity. No lymphadenopathy. No thyromegaly. Cervical spine is nontender. No JVD. HEART: Regular rate and rhythm without murmurs gallops or rubs. LUNGS: Clear to auscultation bilaterally without wheezes, rales or rhonchi. No dullness to percussion. No retractions or accessory muscle use. ABDOMEN: Positive bowel sounds x 4. Normal tympanic percussion. Mild epigastric discomfort. The abdomen was otherwise soft, nontender, without masses or organomegaly. Lockwood sign negative. No guarding or rebound tenderness. MUSCULOSKELETAL: No muscle atrophy, erythema, or edema noted. Full range of motion without joint tenderness in all extremities. No tenderness to palpation. Normal gait. Strength 5/5 throughout. NEURO: Patient was alert and oriented to person place and time. Normal sensation to light and sharp touch. Deep tendon reflexes 2+ throughout. No focal neurological deficits. Medical Decision & Procedures ER Provider Diagnostic Interpretation: CHEST 2 VIEWS ROUTINE HISTORY: 37 years-old Male chest pain, dyspnea acute atypical chest pain with dyspnea COMPARISON: Chest radiograph 12/07/2013 TECHNIQUE: PA and lateral views of the chest FINDINGS: Cardiac silhouette appears be within the upper limits of normal, unchanged. Linear subsegmental bibasilar opacities favor atelectasis or scarring. There is no pneumothorax, pleural effusion, overt pulmonary edema or lobar airspace consolidation. Bones of the chest appear grossly intact. IMPRESSION: 1. No acute process. 2. Linear subsegmental bibasilar opacities favor atelectasis or scarring. The above report was generated using voice recognition software. It may contain grammatical, syntax or spelling errors. Electronically signed by: Kermit Schulte M.D. 12/20/2017 4:50 PM Dictated Date/Time: 12/20/2017 4:49 PM Laboratory Results 12/20/17 15:20 Red Blood Count 4.75, Mean Corpuscular Volume 87.8, Mean Corpuscular Hemoglobin 30.5, Mean Corpuscular Hemoglobin Concent 34.8, Mean Platelet Volume 9.4, Neutrophils (%) (Auto) 47.0, Lymphocytes (%) (Auto) 41.2, Monocytes (%) (Auto) 9.8, Eosinophils (%) (Auto) 0.8, Basophils (%) (Auto) 0.4, Neutrophils # (Auto) 4.31, Lymphocytes # (Auto) 3.77, Monocytes # (Auto) 0.90, Eosinophils # (Auto) 0.07, Basophils # (Auto) 0.04 12/20/17 15:20 Test 12/20/17 15:20 12/20/17 17:24 White Blood Count 9.16 K/uL (4.8-10.8) Red Blood Count 4.75 M/uL (4.7-6.1) Hemoglobin 14.5 g/dL (14.0-18.0) Hematocrit 41.7 % (42-52) Mean Corpuscular Volume 87.8 fL (80-100) Mean Corpuscular Hemoglobin 30.5 pg (25-34) Mean Corpuscular Hemoglobin Concent 34.8 g/dl (32-36) Platelet Count 308 K/uL (130-400) Mean Platelet Volume 9.4 fL (7.4-10.4) Neutrophils (%) (Auto) 47.0 % Lymphocytes (%) (Auto) 41.2 % Monocytes (%) (Auto) 9.8 % Eosinophils (%) (Auto) 0.8 % Basophils (%) (Auto) 0.4 % Neutrophils # (Auto) 4.31 K/uL (1.4-6.5) Lymphocytes # (Auto) 3.77 K/uL (1.2-3.4) Monocytes # (Auto) 0.90 K/uL (0.11-0.59) Eosinophils # (Auto) 0.07 K/uL (0-0.5) Basophils # (Auto) 0.04 K/uL (0-0.2) RDW Standard Deviation 45.4 fL (36.4-46.3) RDW Coefficient of Variation 14.1 % (11.5-14.5) Immature Granulocyte % (Auto) 0.8 % Immature Granulocyte # (Auto) 0.07 K/uL (0.00-0.02) Anion Gap 5.0 mmol/L (3-11) Est Creatinine Clear Calc Drug Dose 107.2 ml/min Estimated GFR () 97.4 Estimated GFR (Non- 84.1 BUN/Creatinine Ratio 8.0 (10-20) Calcium Level 8.6 mg/dl (8.5-10.1) Total Bilirubin 0.4 mg/dl (0.2-1) Aspartate Amino Transf (AST/SGOT) U/L (15-37) Alanine Aminotransferase (ALT/SGPT) 101 U/L (12-78) Alkaline Phosphatase 71 U/L (45-117) Troponin I < 0.015 ng/ml (0-0.045) Total Protein 7.6 gm/dl (6.4-8.2) Albumin 3.4 gm/dl (3.4-5.0) Globulin 4.2 gm/dl (2.5-4.0) Albumin/Globulin Ratio 0.8 (0.9-2) Lipase 143 U/L (73-393) D-Dimer 310 ug/L FEU (0-500) Medications Administered Medications (Trade) Dose Ordered Sig/Jaime Route Start Time Stop Time Status Last Admin Dose Admin Sodium Chloride 1,000 ml @ 999 mls/hr Q1H1M STAT IV 12/20/17 15:36 12/20/17 16:36 DC 12/20/17 15:57 999 MLS/HR Ketorolac Tromethamine (Toradol Inj) 30 mg NOW STAT IV 12/20/17 15:36 12/20/17 15:40 DC 12/20/17 15:57 30 MG Hydroxyzine HCl (Vistaril Tab) 50 mg NOW STAT PO 12/20/17 15:36 12/20/17 15:40 DC 12/20/17 15:57 50 MG Lorazepam (Ativan Inj) 1 mg NOW STAT IV 12/20/17 17:02 12/20/17 17:05 DC 12/20/17 17:14 1 MG ECG Per My Interpretation Indication: chest pain, SOB/dyspnea Rate (beats per minute): 73 Rhythm: sinus with SA Findings: no acute ischemic change, no ectopy Comparison ECG Date: 05/26/17 Change: no significant change ED Course The patient was seen and evaluated as above. IV access obtained, labs drawn. EKG interpreted by myself as above. The patient was given 1L NSS, 30mg Toradol, and 50mg Vistaril. CXR performed. This was reviewed by myself and radiologist as above. He was reassessed and is feeling slightly better, however continues to have dyspnea. D-dimer ordered and the patient was given 1mg Ativan IV. D-dimer was negative. I discussed this with the patient. He was reassessed after Ativan. The patient is feeling better, however still not 100%. I discussed with the patient that I suspect his symptoms are related to anxiety. He was agreeable. He does have a follow-up appointment scheduled for tomorrow. Discharge instructions reviewed, patient was discharged home in good condition. Medical Decision This is a 37-year-old male patient presents to the emergency department today complaining of chest discomfort and dyspnea. He states he has overall "not feeling right". He does have a history of anxiety, depression, and other psychiatric conditions. He has not been taking his medications for approximately the past month. The patient's lab workup here in the emergency department was overall negative. CBC was without leukocytosis, anemia, thrombocytopenia. CMP did not reveal any significant renal, hepatic, electrolyte abnormalities. The patient's blood glucose was 161. ALT was 101. Troponin was negative. Lipase was negative. Patient's d-dimer was negative as well. Chest x-ray did not reveal any signs of pneumonia or other inflammatory or consolidation changes. I suspect the patient's symptoms are related to anxiety and stress at work, as he later explains that his workday was busier than normal today. Regarding the hearing complaints, I suspect a possible allergic component, as the patient has previously been on Vistaril, and did not note the symptoms while on this medication. His muffled hearing became worse outside the and while inside at work. He does have an appointment scheduled for [facility] Advised him to discuss with them that his symptoms did somewhat improved with Vistaril and Ativan, and I suspect the anxiety/stress. I recommended the patient get back on his prescription medications. He was agreeable. All questions were answered to the patient's satisfaction. He is encouraged to return to the emergency department for any worsening symptoms. Etiologies such as cardiac ischemia, aortic dissection, pulmonary embolism, pneumonia, pneumothorax, musculoskeletal, infections, gastrointestinal, as well as others were entertained. The chart was completed utilizing [employer] Speech voice recognition software. Grammatical errors, random word insertions, pronoun errors, and incomplete sentences are an occasional consequence of this system due to software limitations, ambient noise, and hardware issues. Any formal questions or concerns about the content, text, or information contained within the body of this dictation should be directly addressed to the provider for clarification. Medication Reconcilliation Current Medication List: was personally reviewed by me Blood Pressure Screening Patient's blood pressure: Elevated blood pressure Blood pressure disposition: Elevated BP felt to be situational Impression Primary Impression: Non-cardiac chest pain Additional Impressions: Dyspnea Anxiety Departure Information Dispostion Home / Self-Care Condition GOOD Prescriptions No Active Prescriptions or Reported Meds Referrals Olivia Amin M.D. (MEDICAL) (PCP) [facility] Patient Instructions ED Chest Pain NonCardiac, ED Dyspnea Shortness of Breath, Generalized Anxiety Disorder, My [facility] Additional Instructions You were seen in the emergency department today for chest pain and difficulty breathing. I suspect anxiety is the cause, as her cardiac workup was negative. Please follow-up at your appointment tomorrow with [facility] at 9 AM. You should discuss your anxiety and symptoms at that time. Restart Vistaril as prescribed. I suspect this medication will help with the potential allergy related symptoms of muffled hearing and breathing difficulty which were worse outside. This medication also may help with your anxiety. Ibuprofen(Motrin, Advil) may be used for fever or pain. Use 600mg every six hours as needed. Take with food. Avoid using more than 2400mg in a 24 hour period. Do not use 2400mg per day for more than three consecutive days without physician direction. Prolonged inappropriate use can lead to stomach upset or ulcers. (AND/OR) Acetaminophen(Tylenol) may be used for fever or pain. Use 1000mg every six hours as needed. Avoid using more than 3000mg in a 24 hour period. Return to the emergency department for any worsening or concerning symptoms. Problem Qualifiers Additional Impressions: Dyspnea Dyspnea type: shortness of breath Qualified Codes: R06.02 - Shortness of breath
[2017-12-20] MEDS ORDERED: LORAZEPAM 2 MG/ML 1 ML VIAL IV STA (17:02)
[2017-12-20 18:29] VITALS: BP 150/98; PULSE 72; O2SAT 97
== END 2017-12-20 18:31 | disposition home or self-care (01) ==
LOC: C.EDB 15:09
DX: R07.89 Other chest pain (principal); R06.00 Dyspnea, unspecified; F41.9 Anxiety disorder, unspecified; I10 Essential (primary) hypertension; F60.2 Antisocial personality disorder; F19.90 Other psychoactive substance use, unspecified, uncomplicated; F12.90 Cannabis use, unspecified, uncomplicated; Z87.442 Personal history of urinary calculi; Z90.49 Acquired absence of other specified parts of digestive tract; M54.5 Low back pain; G89.29 Other chronic pain; F32.9 Major depressive disorder, single episode, unspecified; F17.210 Nicotine dependence, cigarettes, uncomplicated

== ENCOUNTER 2017-12-22 14:05 | Emergency (ER) | payer SELFPAY ==
[~2017-12-22] VITALS: Ht 162.6 cm; Wt 117.0 kg
[2017-12-22 14:10] VITALS: TEMP 37; Ht 162.6 cm; Wt 117.0 kg
[2017-12-22 14:41] LABS: BASO % 0.4 %; BASO ABS # 0.04 K/uL (0-0.2); EOS % 0.8 %; EOS ABS # 0.08 K/uL (0-0.5); HEMATOCRIT 41.5 % (42-52); HEMOGLOBIN 14.6 g/dL (14.0-18.0); IG# 0.05 K/uL (0.00-0.02); LYMPH % 40.2 %; LYMPH ABS # 3.93 K/uL (1.2-3.4); MEAN CELL VOLUME 87.4 fL (80-100); MEAN CORPUSCULAR HEMOGLOBIN 30.7 pg (25-34); MEAN CORPUSCULAR HGB CONC 35.2 g/dl (32-36); MONO % 4.3 %; MONO ABS # 0.42 K/uL (0.11-0.59); NEUT % 53.8 %; NEUT ABS # 5.25 K/uL (1.4-6.5); PLATELET COUNT 264 K/uL (130-400); RED CELL DISTRIBUTION WIDTH CV 14.1 % (11.5-14.5); RED CELL DISTRIBUTION WIDTH SD 45.1 fL (36.4-46.3); WHITE BLOOD COUNT 9.77 K/uL (4.8-10.8)
[2017-12-22 15:15] LABS: ALBUMIN 3.5 gm/dl (3.4-5.0); CALCIUM 8.8 mg/dl (8.5-10.1); CREATININE 1.31 mg/dl (0.60-1.40); POTASSIUM 3.7 mmol/L (3.5-5.1)
[2017-12-22] MEDS ORDERED: LISI10TA PO (15:30)
[2017-12-22 15:49] LABS: TOTAL PROTEIN 7.8 gm/dl (6.4-8.2)
[2017-12-22] MEDS ORDERED: LORAZEPAM 1 MG TAB SL STA ×2 (15:51→21:50)
--- NOTE | 2017-12-22 18:08 | EMERGENCY ROOM VISIT NOTE ---
History Report prepared by Larisa: Anastasiia Rosales Under the Supervision of: Dr. Joe Whaley M.D. First contact with patient: 14:40 Chief Complaint: MENTAL HEALTH EVALUATION Stated Complaint: SUICIDAL THOUGHT, OFF MEDS - SENT BY History of Present Illness The patient is a 37 year old male who presents to the Emergency Room for a mental health evaluation. The patient reports he had a panic attack daily for the last week. The patient went to [facility] today who referred him to come to the ED. The patient reports he has been having suicidal ideations for the past couple days. He states "I rather be than feeling the way I have been feeling". The patient reports he tried to kill himself a couple years ago by overdosing. The patient denies any fever, chest pain, abdominal pain, or vomiting. The patient taken off of psychiatric medications two months ago. He was on Lexapro and Seroquel. He reports he was recently in [facility] for 6 months and when he got out he lost his insurance. When he lost his insurance he had to stop taking his medications. The patient reports he has been having headaches but he had a head CT two weeks ago which was normal. Source of History: patient Position: other (generalized) Symptom Intensity: severe Quality: other (mental health evaluation) Timing: constant Associated Symptoms: No fevers, No vomiting, No abdominal pain Review of Systems See HPI for pertinent positives & negatives. A total of 10 systems reviewed and were otherwise negative. Past Medical & Surgical Medical Problems: (1) Acute gastroenteritis (2) ACUTE PANCREATITIS (3) Amphetamine abuse (4) Antisocial personality disorder (5) CALCULUS OF KIDNEY (6) Cannabis use disorder, mild, abuse (7) Cholecystectomy (8) Chronic back pain (9) Flank pain (10) Gallbladder problem (11) Kidney stone (12) Major depressive disorder, recurrent severe without psychotic features (13) Nephrolithiasis (14) NONINF GASTROENTERIT NEC (15) Opiate dependence (16) POIS-SEDATIVE/HYPNOT NEC (17) PTSD (post-traumatic stress disorder) (18) Spasm of back muscles (19) Thoracic back pain (20) Tobacco use disorder (21) Ureteral calculi Surgical Problems: (1) History of cholecystectomy (2) History of renal stent Social History Problems: (1) Stomach problems Family History Patient reports no known family medical history. Social History Smoking Status: Current Every Day Smoker Alcohol Use: none Drug Use: marijuana, other Marital Status: single, in relationship Housing Status: lives with family, other Occupation Status: employed, other Current/Historical Medications Scheduled Lisinopril (Prinivil), 10 MG PO DAILY Allergies Coded Allergies: No Known Allergies (Verified , 11/24/17) Physical Exam Vital Signs Date Time Temp Pulse Resp B/P (MAP) Pulse Ox O2 Delivery O2 Flow Rate FiO2 12/22/17 14:10 37.0 91 18 167/108 97 Room Air Physical Exam Constitutional: Vital signs reviewed. Eyes: Pupils are equal round reactive to light. Conjunctiva are noninjected. ENT: Pharynx is clear without erythema or exudate. Mucous membranes are moist. Neck supple without meningeal signs. Respiratory: Clear to auscultation bilaterally. Breath sounds are equal bilaterally. Cardiovascular: Regular rate and rhythm. No rubs or gallops. GI: Soft, nondistended and nontender. Bowel sounds are present. Musculoskeletal: No peripheral edema. No lower extremity tenderness. Integumentary: No cyanosis. Neurological: The patient is awake and alert. No focal deficits. Psychiatric: Flat affect. Anxious appearing. Medical Decision & Procedures Laboratory Results 12/22/17 14:30 Red Blood Count 4.75, Mean Corpuscular Volume 87.4, Mean Corpuscular Hemoglobin 30.7, Mean Corpuscular Hemoglobin Concent 35.2, Mean Platelet Volume 9.0, Neutrophils (%) (Auto) 53.8, Lymphocytes (%) (Auto) 40.2, Monocytes (%) (Auto) 4.3, Eosinophils (%) (Auto) 0.8, Basophils (%) (Auto) 0.4, Neutrophils # (Auto) 5.25, Lymphocytes # (Auto) 3.93, Monocytes # (Auto) 0.42, Eosinophils # (Auto) 0.08, Basophils # (Auto) 0.04 12/22/17 14:30 Test 12/22/17 14:20 12/22/17 14:30 Urine Color YELLOW Urine Appearance CLEAR (CLEAR) Urine pH 5.0 (4.5-7.5) Urine Specific [place] 1.021 (1.000-1.030) Urine Protein NEG (NEG) Urine Glucose (UA) NEG (NEG) Urine Ketones NEG (NEG) Urine Occult Blood TRACE (NEG) Urine Nitrite NEG (NEG) Urine Bilirubin NEG (NEG) Urine Urobilinogen NEG (NEG) Urine Leukocyte Esterase NEG (NEG) Urine WBC (Auto) 1-5 /hpf (0-5) Urine RBC (Auto) 0-4 /hpf (0-4) Urine Hyaline Casts (Auto) 1-5 /lpf (0-5) Urine Epithelial Cells (Auto) 5-10 /lpf (0-5) Urine Bacteria (Auto) NEG (NEG) Urine Opiates Screen NEG (NEG) Urine Methadone, Qualitative POS (NEG) Urine Barbiturates NEG (NEG) Urine Phencyclidine (PCP) Level NEG (NEG) Ur Amphetamine/Methamphetamine NEG (NEG) MDMA (Ecstasy) Screen NEG (NEG) Urine Benzodiazepines Screen NEG (NEG) Urine Cocaine Metabolite NEG (NEG) Urine Marijuana (THC) POS (NEG) White Blood Count 9.77 K/uL (4.8-10.8) Red Blood Count 4.75 M/uL (4.7-6.1) Hemoglobin 14.6 g/dL (14.0-18.0) Hematocrit 41.5 % (42-52) Mean Corpuscular Volume 87.4 fL (80-100) Mean Corpuscular Hemoglobin 30.7 pg (25-34) Mean Corpuscular Hemoglobin Concent 35.2 g/dl (32-36) Platelet Count 264 K/uL (130-400) Mean Platelet Volume 9.0 fL (7.4-10.4) Neutrophils (%) (Auto) 53.8 % Lymphocytes (%) (Auto) 40.2 % Monocytes (%) (Auto) 4.3 % Eosinophils (%) (Auto) 0.8 % Basophils (%) (Auto) 0.4 % Neutrophils # (Auto) 5.25 K/uL (1.4-6.5) Lymphocytes # (Auto) 3.93 K/uL (1.2-3.4) Monocytes # (Auto) 0.42 K/uL (0.11-0.59) Eosinophils # (Auto) 0.08 K/uL (0-0.5) Basophils # (Auto) 0.04 K/uL (0-0.2) RDW Standard Deviation 45.1 fL (36.4-46.3) RDW Coefficient of Variation 14.1 % (11.5-14.5) Immature Granulocyte % (Auto) 0.5 % Immature Granulocyte # (Auto) 0.05 K/uL (0.00-0.02) Anion Gap 5.0 mmol/L (3-11) Est Creatinine Clear Calc Drug Dose 90.8 ml/min Estimated GFR () 80.6 Estimated GFR (Non- 69.6 BUN/Creatinine Ratio 8.7 (10-20) Calcium Level 8.8 mg/dl (8.5-10.1) Total Bilirubin 0.4 mg/dl (0.2-1) Aspartate Amino Transf (AST/SGOT) 60 U/L (15-37) Alanine Aminotransferase (ALT/SGPT) 110 U/L (12-78) Alkaline Phosphatase 72 U/L (45-117) Total Protein 7.8 gm/dl (6.4-8.2) Albumin 3.5 gm/dl (3.4-5.0) Globulin 4.3 gm/dl (2.5-4.0) Albumin/Globulin Ratio 0.8 (0.9-2) Thyroid Stimulating Hormone (TSH) 2.660 uIu/ml (0.300-4.500) Chemistry Specimen Hemolysis Salicylates Level 2.4 mg/dl (2.8-20) Acetaminophen Level < 2 ug/ml (10-30) Ethyl Alcohol mg/dL < 3.0 mg/dl (0-3) Laboratory results as reviewed by me. Medications Administered Medications (Trade) Dose Ordered Sig/Jaime Route Start Time Stop Time Status Last Admin Dose Admin Lorazepam (Ativan Tab) 1 mg NOW STAT SL 12/22/17 15:51 12/22/17 15:52 DC 12/22/17 16:05 1 MG ED Course 1443: The patient was evaluated in room A4B. A complete history and physical exam was performed. 1458: I discussed the patient's case with the psychiatric mattress spring encaser. 1800: The patient was signed out to Dr. Hopkins at the change of shifts. Medical Decision This is a 37-year-old male who presents with severe anxiety and suicidal ideation. I did perform a limited focused review of portions of the patient's old chart on the electronic medical record. The patient was in the ED two days ago for chest pain and feeling disoriented. He had an unremarkable work up and was treated with Ativan and Vistaril. He had follow up with his PCP the following day arranged. I did evaluate the patient as noted above. I did order and review the patient's blood work as noted in the electronic medical record. The patient was treated with Ativan. I did medically clear the patient. He was evaluated by the mental health mattress spring encaser who agreed the patient required inpatient treatment. Bed search is currently pending. The patient was signed out to Dr. hopkins. Medication Reconcilliation Current Medication List: was personally reviewed by me Blood Pressure Screening Patient's blood pressure: Elevated blood pressure Blood pressure disposition: Referred to PCP Impression Primary Impression: Mood disorder Additional Impressions: Suicidal ideation Anxiety Scribe Attestation The scribe's documentation has been prepared under my direct and personally reviewed by me in its entirety. I confirm that the note above accurately reflects all work, treatment, procedures, and medical decision making performed by me. Departure Information Dispostion Still a Patient Referrals Olivia Amin M.D. (MEDICAL) (PCP) Patient Instructions My [facility] [address] Problem Qualifiers
--- NOTE | 2017-12-22 21:04 | EMERGENCY ROOM VISIT NOTE ---
ED Visit Note First contact with patient: 18:00 Patient signed out to me at change of shift by Dr. Whaley. Patient awaiting placement. 2100: Transfer form and 201 signed.
[2017-12-22] MEDS ORDERED: LORAZEPAM 1 MG TAB ONE ×2 (21:26→21:31)
[2017-12-22 22:30] VITALS: BP 148/93; PULSE 70; O2SAT 96
== END 2017-12-22 22:32 ==
LOC: C.EDB 14:06 → C.EDA 22:32
DX: F39 Unspecified mood [affective] disorder (principal); R45.851 Suicidal ideations; F41.9 Anxiety disorder, unspecified; F32.9 Major depressive disorder, single episode, unspecified; F43.10 Post-traumatic stress disorder, unspecified; F17.200 Nicotine dependence, unspecified, uncomplicated; F12.90 Cannabis use, unspecified, uncomplicated

== ENCOUNTER 2018-01-06 13:06 | Emergency (ER) | payer SELFPAY ==
[~2018-01-06] VITALS: Ht 162.6 cm; Wt 116.8 kg
[2018-01-06 13:06] VITALS: Ht 162.6 cm; Wt 116.8 kg
[~2018-01-06 13:06] MED LIST changes: -ESCI1TAB10 PO; -FLM4 PO; -HYDR50CA PO; +LISI10TA PO; -MTR600X OR; -PRAZ2CAP PO; -TRAZ1TAB52 PO
[2018-01-06 13:07] VITALS: O2SAT 93
--- NOTE | 2018-01-06 13:31 | EMERGENCY ROOM VISIT NOTE ---
History Report prepared by [place]: Angel Cavazos Under the Supervision of: Dr. Juan Carlos Ash M.D. First contact with patient: 13:20 Chief Complaint: OVERDOSE (INTENTIONAL) Stated Complaint: OVERDOSE History of Present Illness The patient is a 37 year old male who presents to the Emergency Room due to heroin overdose. The patient states that he uses heroin recreationally. Per nursing, the patient had one dime bag of heroin. The police had found him unresponsive, which caused them to give him 2 mg of Narcan IM. The patient was still unresponsive which caused them to give him another 2 mg intranasally. EMS arrived and brought the patient to the ED. On the way to the ED, they gave him 0.4 mg of Narcan IV, which caused the patient to become responsive. The patient denies suicidal ideations and using other drugs. No trauma. 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 A total of ten systems were reviewed and were otherwise negative. Past Medical & Surgical Medical Problems: (1) Acute gastroenteritis (2) ACUTE PANCREATITIS (3) Amphetamine abuse (4) Antisocial personality disorder (5) CALCULUS OF KIDNEY (6) Cannabis use disorder, mild, abuse (7) Cholecystectomy (8) Chronic back pain (9) Flank pain (10) Gallbladder problem (11) Kidney stone (12) Major depressive disorder, recurrent severe without psychotic features (13) Nephrolithiasis (14) NONINF GASTROENTERIT NEC (15) Opiate dependence (16) POIS-SEDATIVE/HYPNOT NEC (17) PTSD (post-traumatic stress disorder) (18) Spasm of back muscles (19) Thoracic back pain (20) Tobacco use disorder (21) Ureteral calculi Surgical Problems: (1) History of cholecystectomy (2) History of renal stent Social History Problems: (1) Stomach problems Family History Patient reports no known family medical history. Social History Smoking Status: Current Every Day Smoker Alcohol Use: none Drug Use: marijuana, other Marital Status: single, in relationship Housing Status: lives with family, other Occupation Status: employed, other Current/Historical Medications Scheduled Clonazepam (Klonopin), 1.5 MG PO TID Lisinopril (Prinivil), 10 MG PO DAILY Scheduled PRN Naloxone HCl (Narcan), 1 SPRAY INT SPINAL DIRECTED PRN for Shortness of Breath Allergies Coded Allergies: No Known Allergies (Verified , 01/06/18) Physical Exam Vital Signs Date Time Temp Pulse Resp B/P (MAP) Pulse Ox O2 Delivery O2 Flow Rate FiO2 01/06/18 15:47 36.8 93 20 118/70 95 01/06/18 15:29 93 20 118/70 95 Room Air 01/06/18 15:24 97 20 94 Room Air 01/06/18 15:24 100 22 101/77 96 Room Air 01/06/18 15:15 100 22 94 Room Air 01/06/18 15:07 100 22 92 Room Air 01/06/18 15:06 98 101/75 90 Room Air 01/06/18 14:37 100 21 111/80 92 Room Air 01/06/18 14:07 100 21 97 Nasal Cannula 2.0 01/06/18 14:02 113/72 01/06/18 13:36 103 19 94 Nasal Cannula 2.0 01/06/18 13:31 104/66 01/06/18 13:21 97/71 01/06/18 13:19 104 01/06/18 13:13 117/90 01/06/18 13:07 93 Nasal Cannula 2.0 01/06/18 13:06 36.8 102 20 97/71 88 Room Air 01/06/18 13:06 36.8 102 20 97/71 88 Room Air 01/06/18 13:06 88 Room Air Physical Exam Physical Exam GENERAL: He is oriented to person, place, and time. He appears well-developed and well-nourished. He does not appear distressed. ____ HENT: Exam performed. Head: Normocephalic and atraumatic. Right Ear: External ear normal. No mastoid tenderness. Left Ear: External ear normal. No mastoid tenderness. Mouth/Throat: The oropharynx is clear and moist. No trismus in the jaw. No dental abscesses or uvula swelling. No oropharyngeal exudate or tonsillar abscesses. ____ EYES: Conjunctivae and EOM are normal. Pupils are equal, round, and reactive to light. Right eye exhibits no discharge. Left eye exhibits no discharge. No scleral icterus. ____ NECK: Normal range of motion. Neck supple. No JVD present. No spinous process tenderness present. No carotid bruit present. No rigidity. No tracheal deviation and normal range of motion present. No Brudzinski's sign and no Kernig 's sign noted. ____ CV: Normal rate, regular rhythm, normal heart sounds and intact distal pulses. There is no peripheral edema. Palpable radial pulses bue. ____ PULM/CHEST: Effort normal and breath sounds normal. No respiratory distress. No stridor. He has no wheezes. He has no rales. Chest Wall: He exhibits no tenderness. ____ ABD: The abdomen is soft. Bowel sounds are normal. He has no distension. No mass is present. There is no tenderness. There is no rebound, no guarding, no Lockwood's sign and no tenderness at McBurney's point. Rovsig negative MUSC/SKEL: Normal range of motion. There is no peripheral edema, tenderness or deformity. LYMPH: No cervical adenopathy. ____ NEURO: He is alert and oriented to person, place, and time. He is talking. He has normal strength. No cranial nerve deficit or sensory deficit. Coordination and gait normal. GCS eye subscore is 4. GCS verbal subscore is 5. GCS motor subscore is 6. Cerebellar tests wnl. ____ SKIN: Skin is warm and dry. He is not diaphoretic. ____ PSYCH: He has a normal mood and affect. His behavior is normal. Judgment and thought content normal. ____ Medical Decision & Procedures ECG Per My Interpretation Indication: altered mental status Rate (beats per minute): 104 Rhythm: normal sinus Findings: other (NJ, QRS, QTC WNL. No ST elevations or depressions.) ED Course 1323: The patient was evaluated in room A03. A complete history and physical exam was performed. He is 88 percent on RA. He was put on 2L of oxygen. 1542: I reevaluated the patient. His vital signs are stable. The patient tolerated PO. His oxygen saturation was stable on room air. No further Narcan needed in the emergency department. He was discharged with his girlfriend with a prescription of Narcan. He was instructed not to drive. DISCHARGE - Plan of care discussed with patient and questions answered. The patient was given both verbal and printed discharge instructions. The patient verbalized understanding and ability to comply. The patient is to seek outpatient follow up as noted in the discharge instructions. The patient verbalized understanding and ability to comply. The patient is discharged in stable condition. The patient was instructed to return for worsening symptoms. Medical Decision vital signs are stable. The patient tolerated PO. His oxygen saturation was stable on room air. No further Narcan needed in the emergency department. He was discharged with his girlfriend with a prescription of Narcan. He was instructed not to drive. DISCHARGE - Plan of care discussed with patient and questions answered. The patient was given both verbal and printed discharge instructions. The patient verbalized understanding and ability to comply. The patient is to seek outpatient follow up as noted in the discharge instructions. The patient verbalized understanding and ability to comply. The patient is discharged in stable condition. The patient was instructed to return for worsening symptoms. Medication Reconcilliation Current Medication List: was personally reviewed by me Blood Pressure Screening Patient's blood pressure: Normal blood pressure Impression Primary Impression: Heroin overdose Scribe Attestation The scribe's documentation has been prepared under my direction and personally reviewed by me in its entirety. I confirm that the note above accurately reflects all work, treatment, procedures, and medical decision making performed by me. The chart was completed utilizing [employer] Speech voice recognition software. Grammatical errors, random word insertions, pronoun errors, and incomplete sentences are an occasional consequence of this system due to software limitations, ambient noise, and hardware issues. Any formal questions or concerns about the content, text, or information contained within the body of this dictation should be directly addressed to the physician for clarification. Departure Information Dispostion Home / Self-Care Prescriptions Naloxone HCl (Narcan) 4 Mg/0.1 Ml Spr 1 SPRAY INT SPINAL DIRECTED Y for Shortness of Breath, #2 SPRAY 3 Refills Prov: Juan Carlos Ash M.D. 01/06/18 Referrals Olivia Amin M.D. (MEDICAL) (PCP) Forms HOME CARE DOCUMENTATION FORM, IMPORTANT VISIT INFORMATION, WORK / SCHOOL INSTRUCTIONS Patient Instructions Abuse Heroin Abuse and Addiction, Addiction Heroin Tx, ED Narcotic Abuse, ED Overdose Opiate, My [facility] Additional Instructions STOP DOING DRUGS Problem Qualifiers Primary Impression: Heroin overdose Encounter type: initial encounter Injury intent: accidental or unintentional Qualified Codes: T40.1X1A - Poisoning by heroin, accidental ( unintentional), initial encounter
[2018-01-06] MEDS ORDERED: CLON0.5T3 PO (13:36)
[2018-01-06] MEDS ORDERED: NALO1SPR INT SPINAL (15:31)
[2018-01-06 15:47] VITALS: BP 118/70; PULSE 93; TEMP 36.8; O2SAT 95
== END 2018-01-06 15:48 | disposition home or self-care (01) ==
LOC: EDUNIT# 13:06 → C.EDA 13:08
DX: T40.1X1A Poisoning by heroin, accidental (unintentional), initial encounter (principal); F39 Unspecified mood [affective] disorder; F32.9 Major depressive disorder, single episode, unspecified; F17.200 Nicotine dependence, unspecified, uncomplicated; F12.90 Cannabis use, unspecified, uncomplicated

== ENCOUNTER 2018-03-12 11:22 | Inpatient (IN) | payer OTHER ==
[~2018-03-12] VITALS: Ht 165.1 cm; Wt 90.0 kg
[~2018-03-12 11:22] MED LIST changes: +CLON0.5T9 PO; +NALO1SPR INT SPINAL
[2018-03-12] MEDS ORDERED: QUET400T PO (11:57)
[2018-03-12] MEDS ORDERED: PRAZ2CAP3 PO (11:57)
[2018-03-12] MEDS ORDERED: ESCI1TAB10 PO (11:57)
[2018-03-12] MEDS ORDERED: LISINOPRIL 10 MG TAB PO STA (12:00)
[2018-03-12] MEDS ORDERED: ESCITALOPRAM OXALATE 20 MG TAB PO STA (12:00)
--- NOTE | 2018-03-12 12:03 | EMERGENCY ROOM VISIT NOTE ---
History Report prepared by [place]: Zhen Garcia Under the Supervision of: Dr. Westley Raymundo M.D. First contact with patient: 11:47 Chief Complaint: PSYCHIATRIC PROBLEMS Stated Complaint: DEPRESSION, ANXIETY, SUICIDAL IDEATIONS History of Present Illness The patient is a 37 year old male who presents to the Emergency Room with complaints of constant suicidal ideations beginning a few days ago. The patient states that he has a history of anxiety and depression. He notes that he has been having a rough couple of months and reports that his electricity was recently shut off. The patient states that his significant other is away and he notes that he is having a hard time taking care of himself and dealing with life. He reports that he is currently feeling suicidal, and has a plan to overdose or disappear. The patient states that he has not been taking his medication for the last few days. He notes that he has had to be admitted for psychiatric problems in the past. He denies any fever, chills, and CP. Source of History: patient Onset: a few days ago Position: head Quality: other (suicidal ideations) Timing: constant Associated Symptoms: No fevers, No chills, No chest pain Review of Systems See HPI for pertinent positives & negatives. A total of 10 systems reviewed and were otherwise negative. Past Medical & Surgical Medical Problems: (1) Acute gastroenteritis (2) ACUTE PANCREATITIS (3) Amphetamine abuse (4) Antisocial personality disorder (5) Anxiety (6) CALCULUS OF KIDNEY (7) Cannabis abuse (8) Cannabis use disorder, mild, abuse (9) Cholecystectomy (10) Chronic back pain (11) Depression (12) Flank pain (13) Gallbladder problem (14) Kidney stone (15) Major depressive disorder, recurrent severe without psychotic features (16) Methamphetamine abuse (17) MRSA carrier (18) Nephrolithiasis (19) NONINF GASTROENTERIT NEC (20) Obesity (21) Opiate dependence (22) POIS-SEDATIVE/HYPNOT NEC (23) Polysubstance abuse (24) PTSD (post-traumatic stress disorder) (25) Spasm of back muscles (26) Suicidal ideation (27) Thoracic back pain (28) Tobacco use disorder (29) Ureteral calculi Surgical Problems: (1) History of cholecystectomy (2) History of renal stent Social History Problems: (1) Stomach problems Family History Patient reports no known family medical history. Social History Smoking Status: Current Every Day Smoker Alcohol Use: none Drug Use: marijuana, other Marital Status: in relationship Housing Status: lives with family Occupation Status: unemployed Current/Historical Medications Scheduled Escitalopram Oxalate (Lexapro), 30 MG PO DAILY Lisinopril (Prinivil), 10 MG PO DAILY Prazosin Hcl (Prazosin), 1 MG PO BID Quetiapine Fumarate Xr (Seroquel Xr Tab), 400 MG PO QPM Allergies Coded Allergies: No Known Allergies (Verified , 03/12/18) Physical Exam Vital Signs Date Time Temp Pulse Resp B/P (MAP) Pulse Ox O2 Delivery O2 Flow Rate FiO2 03/12/18 11:37 36.6 79 18 138/89 98 Room Air Physical Exam GENERAL: Awake, alert, well-appearing, in no acute distress HENT: Normocephalic, atraumatic. Oropharynx unremarkable. EYES: Normal conjunctiva. Sclera non-icteric. NECK: Supple. No nuchal rigidity. FROM. No JVD. RESPIRATORY: Clear to auscultation. CARDIAC: Regular rate, normal rhythm. Extremities warm and well perfused. Pulses equal. ABDOMEN: Soft, non-distended. No tenderness to palpation. No rebound or guarding. No masses. RECTAL: Deferred. MUSCULOSKELETAL: Chest examination reveals no tenderness. The back is symmetrical on inspection without obvious abnormality. There is no CVA tenderness to palpation. No joint edema. LOWER EXTREMITIES: Calves are equal size bilaterally and non-tender. No edema. No discoloration. NEURO: Normal sensorium. No sensory or motor deficits noted. SKIN: No rash or jaundice noted. Medical Decision & Procedures Laboratory Results 03/12/18 12:19 Red Blood Count 4.57, Mean Corpuscular Volume 90.2, Mean Corpuscular Hemoglobin 30.4, Mean Corpuscular Hemoglobin Concent 33.7, Mean Platelet Volume 9.4, Neutrophils (%) (Auto) 63.3, Lymphocytes (%) (Auto) 27.9, Monocytes (%) (Auto) 6.8, Eosinophils (%) (Auto) 1.2, Basophils (%) (Auto) 0.4, Neutrophils # (Auto) 5.88, Lymphocytes # (Auto) 2.59, Monocytes # (Auto) 0.63, Eosinophils # (Auto) 0.11, Basophils # (Auto) 0.04 03/12/18 12:19 Test 03/12/18 11:50 03/12/18 12:19 03/12/18 12:21 Urine Color YELLOW Urine Appearance CLEAR (CLEAR) Urine pH 5.5 (4.5-7.5) Urine Specific Ronan 1.024 (1.000-1.030) Urine Protein NEG (NEG) Urine Glucose (UA) NEG (NEG) Urine Ketones TRACE (NEG) Urine Occult Blood NEG (NEG) Urine Nitrite NEG (NEG) Urine Bilirubin NEG (NEG) Urine Urobilinogen NEG (NEG) Urine Leukocyte Esterase NEG (NEG) Urine Opiates Screen POS (NEG) Urine Methadone, Qualitative NEG (NEG) Urine Barbiturates NEG (NEG) Urine Phencyclidine (PCP) Level NEG (NEG) Ur Amphetamine/Methamphetamine POS (NEG) MDMA (Ecstasy) Screen POS (NEG) Urine Benzodiazepines Screen NEG (NEG) Urine Cocaine Metabolite NEG (NEG) Urine Marijuana (THC) NEG (NEG) White Blood Count 9.29 K/uL (4.8-10.8) Red Blood Count 4.57 M/uL (4.7-6.1) Hemoglobin 13.9 g/dL (14.0-18.0) Hematocrit 41.2 % (42-52) Mean Corpuscular Volume 90.2 fL (80-100) Mean Corpuscular Hemoglobin 30.4 pg (25-34) Mean Corpuscular Hemoglobin Concent 33.7 g/dl (32-36) Platelet Count 328 K/uL (130-400) Mean Platelet Volume 9.4 fL (7.4-10.4) Neutrophils (%) (Auto) 63.3 % Lymphocytes (%) (Auto) 27.9 % Monocytes (%) (Auto) 6.8 % Eosinophils (%) (Auto) 1.2 % Basophils (%) (Auto) 0.4 % Neutrophils # (Auto) 5.88 K/uL (1.4-6.5) Lymphocytes # (Auto) 2.59 K/uL (1.2-3.4) Monocytes # (Auto) 0.63 K/uL (0.11-0.59) Eosinophils # (Auto) 0.11 K/uL (0-0.5) Basophils # (Auto) 0.04 K/uL (0-0.2) RDW Standard Deviation 43.9 fL (36.4-46.3) RDW Coefficient of Variation 13.4 % (11.5-14.5) Immature Granulocyte % (Auto) 0.4 % Immature Granulocyte # (Auto) 0.04 K/uL (0.00-0.02) Anion Gap 6.0 mmol/L (3-11) Est Creatinine Clear Calc Drug Dose 96.6 ml/min Estimated GFR () 103.0 Estimated GFR (Non- 88.8 BUN/Creatinine Ratio 12.1 (10-20) Calcium Level 9.0 mg/dl (8.5-10.1) Total Bilirubin 0.4 mg/dl (0.2-1) Direct Bilirubin 0.1 mg/dl (0-0.2) Aspartate Amino Transf (AST/SGOT) 65 U/L (15-37) Alanine Aminotransferase (ALT/SGPT) 124 U/L (12-78) Alkaline Phosphatase 117 U/L (45-117) Total Protein 7.9 gm/dl (6.4-8.2) Albumin 3.5 gm/dl (3.4-5.0) Thyroid Stimulating Hormone (TSH) 1.080 uIu/ml (0.300-4.500) Ethyl Alcohol mg/dL < 3.0 mg/dl (0-3) Bedside Glucose 93 mg/dl (70-99) Labs reviewed by ED physician. Medications Administered Medications (Trade) Dose Ordered Sig/Jaime Route Start Time Stop Time Status Last Admin Dose Admin Escitalopram Oxalate (Lexapro Tab) 20 mg NOW STAT PO 03/12/18 12:00 03/12/18 12:03 DC 03/12/18 12:43 20 MG Lisinopril (Zestril Tab) 10 mg NOW STAT PO 03/12/18 12:00 03/12/18 12:03 DC 03/12/18 12:43 10 MG Nicotine (Nicoderm Cq 21MG Patch) 1 patch NOW STAT TD 03/12/18 14:21 03/12/18 14:22 DC 03/12/18 14:30 1 PATCH ED Course 1155: Past medical records reviewed. The patient was evaluated in room A7. A complete history and physical examination was performed. 1503: I spoke to psychiatric case management. The patient was accepted to [facility]. Medical Decision Differential diagnosis: Etiologies such as mood disorder, infection, hypoglycemia, electrolyte abnormalities, cardiac sources, intracerebral event, toxicologic, neurologic, as well as others were entertained. This is a 37-year-old male who presents emergency department over concerns that he is suicidal. The patient was given his morning medications in the emergency department. The patient reports he has not been taking his meds. He also reports his power has been shut off and he feels suicidal over this. He was medically cleared by me. He was independently evaluated by psychiatric case liaison. The patient was accepted to [facility]. Medication Reconcilliation Current Medication List: was personally reviewed by me Blood Pressure Screening Patient's blood pressure: Elevated blood pressure Blood pressure disposition: Elevated BP felt to be situational Impression Primary Impression: Mood disorder Scribe Attestation The scribe's documentation has been prepared under my direction and personally reviewed by me in its entirety. I confirm that the note above accurately reflects all work, treatment, procedures, and medical decision making performed by me. Departure Information Dispostion Mental Health Acute Care Referrals Olivia Amin M.D. (MEDICAL) (PCP) Patient Instructions My [facility]
[2018-03-12 12:45] LABS: BASO % 0.4 %; BASO ABS # 0.04 K/uL (0-0.2); EOS % 1.2 %; EOS ABS # 0.11 K/uL (0-0.5); HEMATOCRIT 41.2 % (42-52); HEMOGLOBIN 13.9 g/dL (14.0-18.0); IG# 0.04 K/uL (0.00-0.02); LYMPH % 27.9 %; LYMPH ABS # 2.59 K/uL (1.2-3.4); MEAN CELL VOLUME 90.2 fL (80-100); MEAN CORPUSCULAR HEMOGLOBIN 30.4 pg (25-34); MEAN CORPUSCULAR HGB CONC 33.7 g/dl (32-36); MEAN PLATELET VOLUME 9.4 fL (7.4-10.4); MONO % 6.8 %; MONO ABS # 0.63 K/uL (0.11-0.59); NEUT % 63.3 %; NEUT ABS # 5.88 K/uL (1.4-6.5); PLATELET COUNT 328 K/uL (130-400); RED CELL DISTRIBUTION WIDTH CV 13.4 % (11.5-14.5); RED CELL DISTRIBUTION WIDTH SD 43.9 fL (36.4-46.3); WHITE BLOOD COUNT 9.29 K/uL (4.8-10.8)
[2018-03-12 13:13] LABS: ALBUMIN 3.5 gm/dl (3.4-5.0); CREATININE 1.07 mg/dl (0.60-1.40); TOTAL PROTEIN 7.9 gm/dl (6.4-8.2)
[2018-03-12] MEDS ORDERED: NICOTINE 21 MG/24 HR TDSY TD STA (14:21)
[2018-03-12] MEDS ORDERED: NICOTINE POLACRILEX 2 MG GUM MT PRN (14:30)
[2018-03-12] MEDS ORDERED: ALUMINUM/MAGNESIUM SUSP 30 ML UDC PO PRN (15:00)
[2018-03-12] MEDS ORDERED: MAGNESIUM HYDROXIDE SUSP 30 ML UDC PO PRN (15:00)
[2018-03-12] MEDS ORDERED: BISMUTH SUBSALICYLATE PER ML OMNICELL CHARGE PO PRN (15:00)
[2018-03-12] MEDS ORDERED: SODIUM CHLORIDE 0.65% NA SOLN 45 ML (OCEAN) PRN (15:00)
[2018-03-12] MEDS ORDERED: ACETAMINOPHEN 325 MG TAB PO PRN (15:00)
[2018-03-12] MEDS ORDERED: hydrOXYzine HCL 25 MG TAB PO PRN ×2 (15:00)
[2018-03-12] MEDS ORDERED: DIPHENOXYLATE/ATROPINE 2.5/0.025MG TAB PO PRN (15:15)
[2018-03-12] MEDS ORDERED: CLONIDINE HCL 0.1 MG TAB PO PRN (15:15)
[2018-03-12] MEDS ORDERED: NON-FORMULARY MEDICATION SCH (15:15)
[2018-03-12] MEDS: NICOTINE 21 MG/24 HR TDSY TD SCH ×2 (15:30→18:43)
[2018-03-12 15:39] VITALS: O2SAT 96
[2018-03-12] MEDS: CLONIDINE HCL 0.1 MG TAB PO SCH ×2 (16:00→20:36)
[2018-03-12 16:16] VITALS: BP 118/88; PULSE 72; TEMP 36.6; Ht 165.1 cm; Wt 90.0 kg
[2018-03-12 17:14] VITALS: BP 122/78; PULSE 55; TEMP 36.5
[2018-03-12 20:41] VITALS: BP 128/81; PULSE 62; TEMP 36.6
[2018-03-12] MEDS: QUETIAPINE FUMARATE 200 MG TABCR PO SCH (20:53)
[2018-03-12] MEDS ORDERED: QUETIAPINE FUMARATE 200 MG TABCR PO SCH (21:00)
[2018-03-13 06:53] VITALS: BP_SYST 105; BP_SYST 121; BP_DIAS 71; BP_DIAS 76; PULSE 102; PULSE 94; TEMP 36.5
[2018-03-13] MEDS: CLONIDINE HCL 0.1 MG TAB PO SCH ×4 (08:00→20:00)
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
[2018-03-13] MEDS: NICOTINE 21 MG/24 HR TDSY TD SCH (09:00)
[2018-03-13] MEDS: ESCITALOPRAM OXALATE 20 MG TAB PO SCH (09:13)
[2018-03-13] MEDS: LISINOPRIL 10 MG TAB PO SCH (09:14)
[2018-03-13 12:33] VITALS: BP 108/73; PULSE 89; TEMP 36.7
[2018-03-13 17:24] VITALS: BP 120/76; PULSE 72
[2018-03-13] MEDS: QUETIAPINE FUMARATE 200 MG TABCR PO SCH (21:12)
[2018-03-14 06:53] VITALS: BP_SYST 107; BP_SYST 111; BP_DIAS 68; BP_DIAS 71; PULSE 59; PULSE 93; TEMP 36.6
[2018-03-14] MEDS: CLONIDINE HCL 0.1 MG TAB PO SCH (07:28)
[2018-03-14] MEDS: LISINOPRIL 10 MG TAB PO SCH (08:14)
[2018-03-14] MEDS: ESCITALOPRAM OXALATE 20 MG TAB PO SCH (08:14)
[2018-03-14] MEDS: NICOTINE 21 MG/24 HR TDSY TD SCH (08:15)
[2018-03-14 08:19] VITALS: BP 114/75; PULSE 69
[2018-03-14 12:42] VITALS: BP 114/75; PULSE 62; TEMP 36.4
--- NOTE | 2018-03-14 14:42 | Psychiatric Progress Notes ---
Progress Note Date of Service Mar 14, 2018. Interval History Michael Napoles is a 37-year-old male with a history of depression, antisocial personality disorder, and polysubstance abuse who was admitted voluntarily on Mar 12, 2018 at 15:02 for suicidal thoughts. He currently lives in [place] with his girlfriend. He reported medication noncompliance, and drug screen positive for opiates, amphetamine/methamphetamine, and MDMA. Chief Complaint "A little better may be ". Subjective Patient was seen & assessed interval progress reviewed with Treatment Team. Staff report he isolated in bed all day yesterday, refusing groups, and only came out to eat dinner. He refused breakfast and lunch. Today, he was informed that his door would be locked during group time to encourage him to attend, but continued to isolate in his room. On my assessment, he states that he still feels extremely depressed hopeless and suicidal. He says he is trying to "push the suicidal thoughts out real quick," by thinking about his 2 sons, but continues to have them constantly. He says he sees his son's multiple times a week, but there is no formal visitation schedule. He maintains that there is no when he wants to involve in his treatment, and that he has no support. He denies symptoms of opiate withdrawal. Review of Systems Denies shakes, sweats, chills, nausea, vomiting, and diarrhea Sleep Information Total Hours of Sleep: 12.25 Meal Information Percent of Breakfast Consumed: 100 Percent of Lunch Consumed: 100 Percent of Dinner Consumed: 100 Mental Status Exam During interview pt is: alert and oriented, cooperative Appearance: disheveled (Obese, unkempt, dressed in the same close, with long hair and goatee. ) Eye contact is: fair Motor behavior is: steady gait & station, psychomotor retardation Speech: other (Minimal, monotone.) Affect: depressed, constricted Mood is: other ("A little better maybe.") Thought process: goal directed, concrete Thought content: reality based without delusions Suicidal thought are: present, Plan: present Homicidal thoughts are: denied Hallucinations: denies auditory, denies visual Cognition: memory grossly intact, attention grossly intact, language grossly intact Intelligence estimated to be: consistent with level of education Insight: impaired Judgement: impaired Impression 37-year-old single white male with a history of polysubstance abuse, antisocial personality disorder, depression and treatment noncompliance who is admitted with suicidal ideation in the context of polysubstance abuse and multiple psychosocial stressors. He has been noncompliant with outpatient treatment since his last admission here a year ago, spent 6 months in correction, and then resumed his substance abuse upon release. He was hospitalized at another facility for depression earlier this spring, and then went to rehab for heroin abuse after heroin overdose in December when he had to be resuscitated. He says he was sober for over a month after release from rehab, until this past week when he abused Suboxone and prescription stimulants, but UDS is positive for opiates and methamphetamine/amphetamine, indicating and opiate other than Suboxone which is not detected. He has no insurance, no outpatient providers, girlfriend is away at rehab and has cut off contact with him as well as financial support, and his electricity has been turned off. Recommendations are for inpatient rehab, which he declined, but did agree to a referral to IOP at [facility]. Inpatient treatment is medically necessary due to the risk of suicide. Plan (1) Depression 03/13 -Differential includes MDD, personality disorder, substance induced depression. Collateral information from a reliable source would be helpful, as patient not necessarily forthcoming. -Suicide checks for safety. -Resume home meds: quetiapine XR qam and escitalopram 20mg. Hold prazosin due to hypotension risk, as being treated with clonidine for opiate withdrawal. -Fasting glucose normal at 90, fasting lipid profile notable for elevated triglycerides 209. Referred back to PCP for ongoing monitoring. -Coordinate with case manage, Rossi Maldonado. Has not been compliant with OP treatment, unclear if has providers currently. Would benefit from dual diagnosis treatment. -Refer for outpatient dual diagnosis treatment. 03/14 -Continue current meds, refer for dual diagnosis outpatient treatment at [facility]. Refer for case management services. -Locked door during group times to encourage him to be out of bed and participating in treatment. -He continues to decline a family meeting, but encouraged him to think about who could help support him after discharge, and to involve those people in his treatment. (2) Opiate dependence 03/13 - History of misrepresenting and minimizing substance abuse, and so unreliable historian. States he took one dose of Suboxone this week, which per the lab would not show up as a positive opiate screen, so cannot rule out ongoing heroin use or prescription opiate abuse. Was seen in ER 2 months ago for heroin OD and received Narcan. Will follow up on UDS results. Continue clonidine protocol for withdrawal. Brief intervention was offered and accepted. Intervention was greater than 5 min in length. Brief interventions include: 1. Assess Readiness to Quit, 2. Advise: Help Patient to Reduce or Abstain from Alcohol, 3. Agree: Set Specific, Feasible Goals, 4. Assist: Anticipate barriers, Problem-Solving Solutions. Social work to 5. Arrange: Referrals to appropriate treatment. Summary of intervention: The patient is in precontemplation stage with regards to transtheoretical model of change. The patient is advised to decrease alcohol consumption due to depressant effects and risk of interactions with prescription medications. The patient agreed to consider rehab and IOP, and will be provided with recovery materials to continue to education self on how to cope with their condition without drinking. -Patient has long-standing polysubstance abuse, and should not be prescribed controlled substances due to the high risk of abuse/misuse/negative outcomes. He does not currently have a [place] driver's license due to DUIs. -Patient denies being on probation or parole, but was recently released from correction for drug/DUI charges. 03/14-patient refusing scheduled clonidine, and blood pressure is normal, so will discontinue it but continue the as needed dose. (3) Methamphetamine abuse 03/13 - UDS + for meth/amphet. He reports prescription stimulant abuse, but on multiple past admission has lied about his drug use and reported abusing stimulants when in fact he was abusing meth. Supportive treatment for withdrawal. (4) Antisocial personality disorder History of dishonesty in treatment, manipulating others, repeated acts that are grounds for arrest, impulsivity and failure to plan ahead, irritability, consistent irresponsibility, and lack of remorse. (5) Tobacco use disorder Nicotine patch and gun prn. (6) Amphetamine abuse Patient reports ongoing stimulant abuse, which he gets illegally. (7) MRSA carrier EMR shows MRSA + swab from [facility] (from [facility] Will maintain patient in a private room due to MRSA + status, and will re-swab today. (8) Elevated transaminase level 03/13 -AST elevated at 65, and ALT at 124. Looking at his lifetime history of labs here, he has had elevated AST since 2014, and elevated ALT since 2012. He should follow with his PCP for ongoing workup. Differential includes alcohol abuse and hepatitis C; history of IV drug use. Discharge / Aftercare Planning Primary Care Physician: Name: Jad Starkey Date of Appointment: Mar 22, 2018 Time of Appointment: 10:05 a.m. Appointment Notes: [address] [place] [id number] Therapist: Name: None Legal Officer: Name: None Visit Code E&M Code: 15656 Inventory Assets Strengths: Has housing, willing for treatment Needs: Substance abuse treatment, compliance with treatment, abstinence from substances , honesty in treatment Risk Factors Assessment Male: Yes : Yes /single/: Yes Higher / Fall in social status: No Health problems: Yes Mental Health Diagnoses: Yes Substance use disorders: Yes Previous attempt: Yes Family history of suicide: No Previous psychiatric stay: Yes Hopelessness: Yes Smoker: Yes Protective Factors Assessment Gnosticism beliefs: No : No Responsible for young children: No (Has children but denies custoody) Employed: No Stable relationships: No (GF has cut off communication) Supportive family: No Good rapport with provider: No (noncompliant, no providers currently) Absence of risk factors above: No Data Vital Signs Last 24 Hrs: Date Time Temp Pulse Resp B/P (MAP) Pulse Ox O2 Delivery O2 Flow Rate FiO2 03/14/18 12:42 36.4 62 16 114/75 03/14/18 08:19 69 114/75 03/14/18 06:53 36.6 59 16 111/68 93 107/71 03/13/18 23:15 03/13/18 17:24 72 16 120/76 Meds Administered Last 24 Hrs: Meds Administered (Past 24Hrs) Medications (Trade) Dose Ordered Sig/Jaime Route Start Time Stop Time Status Last Admin Dose Admin Nicotine (Nicoderm Cq 21MG Patch) 1 patch QAM TD 03/12/18 15:30 04/11/18 15:29 03/12/18 18:43 1 PATCH Escitalopram Oxalate (Lexapro Tab) 20 mg DAILY PO 03/13/18 09:00 04/12/18 08:59 03/14/18 08:14 20 MG Lisinopril (Zestril Tab) 10 mg DAILY PO 03/13/18 09:00 04/12/18 08:59 03/14/18 08:14 10 MG Quetiapine Fumarate (seroQUEL XR TAB) 400 mg QPM PO 03/12/18 21:00 04/11/18 20:59 03/13/18 21:12 400 MG Clonidine HCl (Catapres Tab) 0.1 mg Q4HWA PO 03/12/18 16:00 03/14/18 08:18 DC 03/12/18 20:36 0.1 MG Problem Qualifiers (1) Depression: Depression Type: unspecified Qualified Codes: F32.9 - Major depressive disorder, single episode, unspecified
--- NOTE | 2018-03-14 14:53 | Medical Student: BHU Only ---
Psychiatric Progress Note IDENTIFYING DATA: Michael Napoles is a 37-year-old male with a history of depression, antisocial personality disorder, and polysubstance abuse who was admitted voluntarily on Mar 12, 2018 at 15:02 for suicidal thoughts. He currently lives in [place] with his girlfriend. He reported medication noncompliance, and drug screen positive for opiates, amphetamine/methamphetamine , and MDMA. CHIEF COMPLAINT: "tired" SUBJECTIVE: Pt was seen and interval progress was reviewed at treatment team. At treatment team, pt is reported to be sleeping most of the day. Pt gives very minimal answers to questions asked. He says he is "tired," but appetite is "pretty good." He thinks he is sleeping "OK," but is requesting his prazosin; he took this medication at home for night terrors. He says his most recent night terror was within the past couple weeks. He has been attending groups and states that they have been helpful. He said he has had no visitors or phone calls; does not want to involve anyone with his care. Pt restarted lexapro and seroquel; tolerating medications. Pt says suicidal thoughts "come and go;" they are not constant and he has no plan. Denies HI and AVH. ROS negative except for what is noted above. MENTAL STATUS EXAM: Pt was disheveled, uncombed hair. Eye contact is poor Motor behavior- normal Speech: low volume; normal rate, and tone Affect: depressed. Mood: "tired". Thought process: linear Thought content: reality based Perception:denies AH/VH occasional SI; denies HI Cognition: language and memory intact Insight is estimated to be poor. Judgment is estimated to be impaired. IMPRESSION: 37yo male with a history of depression, antisocial personality disorder, and polysubstance abuse who was admitted voluntarily for suicidal thoughts. He reported medication and outpatient treatment noncompliance, and drug screen positive for opiates, amphetamine/methamphetamine, and MDMA. He endorses symptoms of a major depressive episode in the context of multiple stressors ( living alone, no power, no job) and he has not been consistently taking his medications. Recently in rehab at the end of January for relapse on heroin. Plan will be to resume medications for depression and encourage an inpatient rehab stay. PLAN: 1. MDD, current MDE with [facility] a. restart seroquel 400MG PO HS and lexapro 20MG PO QAM- for depression b. q15 minute checks; encourage group attendance c. given that pt is on an atypical antipsychotic for depression augmentation, will check most rest fasting labs (glucose and lipid profile) d. will have discussion to include but not limited to risks, benefits, and alternative treatments 2. Substance use disorder (heroin, amphetamine/methamphetamine, nicotine) a. encourage abstinence and inpatient rehab 3. antisocial personality disorder a. it is unclear whether pt is on probation? [facility] September 2017 after 6 months
[2018-03-14] MEDS: QUETIAPINE FUMARATE 200 MG TABCR PO SCH (21:04)
[2018-03-15 06:55] VITALS: BP_SYST 122; BP_SYST 124; BP_DIAS 76; BP_DIAS 82; PULSE 84; PULSE 92; TEMP 36.4
[2018-03-15] MEDS: ESCITALOPRAM OXALATE 20 MG TAB PO SCH (09:32)
[2018-03-15] MEDS: LISINOPRIL 10 MG TAB PO SCH (09:33)
[2018-03-15] MEDS: NICOTINE 21 MG/24 HR TDSY TD SCH (09:37)
--- NOTE | 2018-03-15 10:02 | Psychiatric Progress Notes ---
Progress Note Date of Service Mar 15, 2018. Interval History Michael Napoles is a 37-year-old male with a history of depression, antisocial personality disorder, and polysubstance abuse who was admitted voluntarily on Mar 12, 2018 at 15:02 for suicidal thoughts. He currently lives in [place] with his girlfriend. He reported medication noncompliance, and drug screen positive for opiates, amphetamine/methamphetamine, and MDMA. Chief Complaint "Okay ". Subjective Patient was seen & assessed interval progress reviewed with Nursing and social work. Staff report the patient continues to report depression and suicidal thoughts. He continues to isolate in his room, refusing some meals and at times coming out to eat. He attended several group yesterday, with significant staff encouragement, but had poor participation and slept through some of them. He would often tell staff he was coming to group, but then would not get out of bed. This morning, he refused breakfast, and although he agreed to attend groups, he then refused to get out of bed and has refused all 3 morning groups. On my assessment, he was seen in his room, as he refused to get up. He said that his mood remains depressed, but his suicidal thoughts are "not as much." He continues to experience intrusive thoughts about suicide, but states he is trying to "push them out, I think about what it would do to my kids." He has not been able to get a hold of anyone to bring in belongings, so is wearing the same close he is warned since admission, and was encouraged to shower and change his clothes, which he agreed to do 2 days ago, but did not follow through on. He was again given an opportunity to be more forthcoming about his substance abuse, and was advised that his confirmatory drug screen results came back for morphine (indicating heroin use), and an extremely high level of methamphetamine (above the upper cutoff of 25,000ng/ml). He did not dispute that he had been using heroin and methamphetamine, but would not give any further information about his recent drug use. Spent some time discussing the importance of honesty both with himself and in treatment, and in engaging in treatment to work on a plan for meaningful change before discharge. While he expressed understanding of this, he did not offer additional information or thoughts about how to proceed. Review of Systems Denies chills, sweats, diarrhea, nausea, vomiting. Sleep Information Total Hours of Sleep: 8.25 Meal Information Percent of Breakfast Consumed: 100 Percent of Lunch Consumed: 100 Percent of Dinner Consumed: 90 Mental Status Exam During interview pt is: alert and oriented, cooperative (Partially, not forthcoming or well engage) Appearance: disheveled (Obese, unkempt, dressed in the same clothes since admission, with long unwashed hair and goatee. ), other (Seated in bed in no acute distress) Eye contact is: fair (Bleeding) Motor behavior is: steady gait & station, psychomotor retardation Speech: other (Minimal, monotone.) Affect: depressed, constricted Mood is: other ("About the same.") Thought process: goal directed, concrete Thought content: reality based without delusions (But not forthcoming with information) Suicidal thought are: present (But able to contract for safety in the hospital) Homicidal thoughts are: denied Hallucinations: denies auditory, denies visual Cognition: memory grossly intact, attention grossly intact, language grossly intact Intelligence estimated to be: consistent with level of education Insight: impaired Judgement: impaired Impression 37-year-old single white male with a history of heroin, methamphetamine, and other substance abuse, antisocial personality disorder, depression and treatment noncompliance who is admitted with suicidal ideation in the context of polysubstance abuse and multiple psychosocial stressors. He has been noncompliant with outpatient treatment since his last admission here a year ago , spent 6 months in long-term, and then resumed his substance abuse upon release. He was hospitalized at another facility for depression earlier this spring, and then went to rehab for heroin abuse after a heroin overdose in December when he had to be resuscitated. He says he was sober for over a month after release from rehab, until this past week when he abused Suboxone and prescription stimulants , but UDS is positive for morphine and methamphetamine, indicating and heroin and meth use. Even when provided with this information and encouraged to engage more truthfully in treatment, he is unable to do so. He remains isolative in his room, with poor participation. Although he denies withdrawal symptoms, it certainly possible that he is withdrawing from heroin and that is contributing to his poor engagement. He has no insurance, no outpatient providers, girlfriend is away at rehab and has cut off contact with him as well as financial support, and his electricity has been turned off. Recommendations are for inpatient rehab, which he declined, but did agree to [facility]. He says there is no one with whom he can have a family meeting to get collateral information. Inpatient treatment is medically necessary due to the risk of suicide. Plan (1) Depression 03/13 -Differential includes MDD, personality disorder, substance induced depression. Collateral information from a reliable source would be helpful, as patient not necessarily forthcoming. -Suicide checks for safety. -Resume home meds: quetiapine XR qam and escitalopram 20mg. Hold prazosin due to hypotension risk, as being treated with clonidine for opiate withdrawal. -Fasting glucose normal at 90, fasting lipid profile notable for elevated triglycerides 209. Referred back to PCP for ongoing monitoring. -Coordinate with case manage, Rossi Maldonado. Has not been compliant with OP treatment, unclear if has providers currently. Would benefit from dual diagnosis treatment. -Refer for outpatient dual diagnosis treatment. 03/14 -Continue current meds, refer for dual diagnosis outpatient treatment at [facility]. Refer for case management services. -Lock door during group times to encourage him to be out of bed and participating in treatment. -He continues to decline a family meeting, but encouraged him to think about who could help support him after discharge, and to involve those people in his treatment. 03/15 -Confirmatory drug screen results confirm heroin and meth use. Encourage patient to be more forthcoming in treatment, and to start working on plans for how to have a different outcome after this discharge. He typically is noncompliant with treatment and rapidly relapses. -Patient is not engaged in treatment, and has been poorly responsive to attempts to assist him to engage. (2) Opiate dependence 03/13 - History of misrepresenting and minimizing substance abuse, and so unreliable historian. States he took one dose of Suboxone this week, which per the lab would not show up as a positive opiate screen, so cannot rule out ongoing heroin use or prescription opiate abuse. Was seen in ER 2 months ago for heroin OD and received Narcan. Will follow up on UDS results. Continue clonidine protocol for withdrawal. Brief intervention was offered and accepted. Intervention was greater than 5 min in length. Brief interventions include: 1. Assess Readiness to Quit, 2. Advise: Help Patient to Reduce or Abstain from Alcohol, 3. Agree: Set Specific, Feasible Goals, 4. Assist: Anticipate barriers, Problem-Solving Solutions. Social work to 5. Arrange: Referrals to appropriate treatment. Summary of intervention: The patient is in precontemplation stage with regards to transtheoretical model of change. The patient is advised to decrease alcohol consumption due to depressant effects and risk of interactions with prescription medications. The patient agreed to consider rehab and IOP, and will be provided with recovery materials to continue to education self on how to cope with their condition without drinking. -Patient has long-standing polysubstance abuse, and should not be prescribed controlled substances due to the high risk of abuse/misuse/negative outcomes. 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 -Patient denies being on probation or parole, but was recently released from long-term for drug/DUI charges. 03/14-patient refusing scheduled clonidine, and blood pressure is normal, so will discontinue it but continue the as needed dose. 03/15-confirmatory drug screen results positive for morphine, which per lab indicates heroin use. Strongly encourage inpatient rehab, due to the risk of if he continues to use, as he has already had one near fatal overdose. He continues to refuse. (3) Methamphetamine abuse 03/13 - UDS + for meth/amphet. He reports prescription stimulant abuse, but on multiple past admission has lied about his drug use and reported abusing stimulants when in fact he was abusing meth. Supportive treatment for withdrawal. 03/15--confirmatory drug screen results positive for methamphetamine, with an extremely high level >25,000ng/ml. encourage patient to be honest about his substance use, and to work on a plan to change his behavior. (4) Antisocial personality disorder History of dishonesty in treatment, manipulating others, repeated acts that are grounds for arrest, impulsivity and failure to plan ahead, irritability, consistent irresponsibility, and lack of remorse. (5) Tobacco use disorder Nicotine patch and gun prn. (6) Amphetamine abuse Patient reports ongoing stimulant abuse, which he gets illegally. (7) MRSA carrier EMR shows MRSA + swab from 05/2017 (from long term). Will maintain patient in a private room due to MRSA + status, and will re-swab today. (8) Elevated transaminase level 03/13 -AST elevated at 65, and ALT at 124. Looking at his lifetime history of labs here, he has had elevated AST since 2014, and elevated ALT since 2012. He should follow with his PCP for ongoing workup. Differential includes alcohol abuse and hepatitis C; history of IV drug use. Discharge / Aftercare Planning Primary Care Physician: Name: Jad Starkey Date of Appointment: Mar 22, 2018 Time of Appointment: 10:05 a.m. Appointment Notes: [address] [place] [address], [place] [address] Psychiatrist: Name: [facility] - Intake with Poornima Walter Date of Appointment: Mar 19, 2018 Time of Appointment: 11:00 a.m. Appointment Notes: [address] [facility], [place] [address] Therapist: Name: Clarence St Date of Appointment: Apr 02, 2018 Time of Appointment: 11:00 a.m. Appointment Notes: [facility], [place] [address] [employer]: Name: None Visit Code E&M Code: 72771 Inventory Assets Strengths: Has housing, willing for treatment Needs: Substance abuse treatment, compliance with treatment, abstinence from substances , honesty in treatment Risk Factors Assessment Male: Yes : Yes /single/: Yes Higher / Fall in social status: No Health problems: Yes Mental Health Diagnoses: Yes Substance use disorders: Yes Previous attempt: Yes Family history of suicide: No Previous psychiatric stay: Yes Hopelessness: Yes Smoker: Yes Protective Factors Assessment Muslim beliefs: No : No Responsible for young children: No (Has children but denies custoody) Employed: No Stable relationships: No (GF has cut off communication) Supportive family: No Good rapport with provider: No (noncompliant, no providers currently) Absence of risk factors above: No Data Vital Signs Last 24 Hrs: Date Time Temp Pulse Resp B/P (MAP) Pulse Ox O2 Delivery O2 Flow Rate FiO2 03/15/18 06:55 36.4 84 16 122/82 92 124/76 03/14/18 12:42 36.4 62 16 114/75 Problem Qualifiers (1) Depression: Depression Type: unspecified Qualified Codes: F32.9 - Major depressive disorder, single episode, unspecified
[2018-03-15] MEDS: QUETIAPINE FUMARATE 200 MG TABCR PO SCH (21:06)
[2018-03-16 06:43] VITALS: BP_SYST 111; BP_SYST 115; BP_DIAS 75; BP_DIAS 77; PULSE 65; PULSE 80; TEMP 36.7
[2018-03-16] MEDS: LISINOPRIL 10 MG TAB PO SCH (09:38)
[2018-03-16] MEDS: ESCITALOPRAM OXALATE 20 MG TAB PO SCH (09:38)
[2018-03-16] MEDS: NICOTINE 21 MG/24 HR TDSY TD SCH (09:38)
--- NOTE | 2018-03-16 11:30 | Psychiatric Progress Notes ---
Progress Note Date of Service Mar 16, 2018. Interval History Michael Napoles is a 37-year-old male with a history of depression, antisocial personality disorder, and polysubstance abuse who was admitted voluntarily on Mar 12, 2018 at 15:02 for suicidal thoughts. He currently lives in [place] with his girlfriend. He reported medication noncompliance, and drug screen positive for opiates, amphetamine/methamphetamine, and MDMA. Chief Complaint "I don't know.". Subjective Patient was seen & assessed interval progress reviewed with Treatment Team. Nursing reports that the patient is not participating in his treatment, and went to no groups last evening, choosing to stay in bed with the exception of meals. Today we have locked his bedroom door to facilitate participation in programming, but he is just sitting in the dayroom and not going to groups. He has been postponing his decision about whether to go to rehab, and instead remains focused on wanting to talk with his girlfriend who is in rehab and not communicating with him, "If I could just talk to her.". Reinforced with him that he has no control over that and is allowing that to interfere with his own treatment and when asked to make a decision about rehab, says that he wants just to go home. He says that he will keep himself safe by going to his fathers after going to his apartment to "pack a few things". He says that he has no drugs in his apartment right now. Sleep Information Total Hours of Sleep: 8.00 Meal Information Percent of Breakfast Consumed: 0 Percent of Lunch Consumed: 0 Percent of Dinner Consumed: 90 Mental Status Exam During interview pt is: alert and oriented, cooperative (Partially, not forthcoming or well engage) Appearance: disheveled (Obese, unkempt, dressed in the same clothes since admission, with long unwashed hair and goatee. ), other (Seated in bed in no acute distress) Eye contact is: fair (Bleeding) Motor behavior is: steady gait & station, psychomotor retardation Speech: other (Minimal, monotone.) Affect: depressed, constricted Mood is: other ("About the same.") Thought process: goal directed, concrete Thought content: reality based without delusions (But not forthcoming with information) Suicidal thought are: present (But able to contract for safety in the hospital) Homicidal thoughts are: denied Hallucinations: denies auditory, denies visual Cognition: memory grossly intact, attention grossly intact, language grossly intact Intelligence estimated to be: consistent with level of education Insight: impaired Judgement: impaired Impression 37-year-old single white male with a history of heroin, methamphetamine, and other substance abuse, antisocial personality disorder, depression and treatment noncompliance who is admitted with suicidal ideation in the context of polysubstance abuse and multiple psychosocial stressors. He has been noncompliant with outpatient treatment since his last admission here a year ago , spent 6 months in intermediate, and then resumed his substance abuse upon release. He was hospitalized at another facility for depression earlier this spring, and then went to rehab for heroin abuse after a heroin overdose in December when he had to be resuscitated. He says he was sober for over a month after release from rehab, until this past week when he abused Suboxone and prescription stimulants , but UDS is positive for morphine and methamphetamine, indicating and heroin and meth use. Even when provided with this information and encouraged to engage more truthfully in treatment, he is unable to do so. He remains isolative in his room, with poor participation. Although he denies withdrawal symptoms, it certainly possible that he is withdrawing from heroin and that is contributing to his poor engagement. He has no insurance, no outpatient providers, girlfriend is away at rehab and has cut off contact with him as well as financial support, and his electricity has been turned off. Recommendations are for inpatient rehab, which he declined, but did agree to a [facility]. He says there is no one with whom he can have a family meeting to get collateral information. Inpatient treatment is medically necessary due to the risk of suicide. Plan (1) Depression 03/13 -Differential includes MDD, personality disorder, substance induced depression. Collateral information from a reliable source would be helpful, as patient not necessarily forthcoming. -Suicide checks for safety. -Resume home meds: quetiapine XR qam and escitalopram 20mg. Hold prazosin due to hypotension risk, as being treated with clonidine for opiate withdrawal. -Fasting glucose normal at 90, fasting lipid profile notable for elevated triglycerides 209. Referred back to PCP for ongoing monitoring. -Coordinate with case manage, Rossi Maldonado. Has not been compliant with OP treatment, unclear if has providers currently. Would benefit from dual diagnosis treatment. -Refer for outpatient dual diagnosis treatment. 03/14 -Continue current meds, refer for dual diagnosis outpatient treatment at [facility]. Refer for case management services. -Lock door during group times to encourage him to be out of bed and participating in treatment. -He continues to decline a family meeting, but encouraged him to think about who could help support him after discharge, and to involve those people in his treatment. 03/15 -Confirmatory drug screen results confirm heroin and meth use. Encourage patient to be more forthcoming in treatment, and to start working on plans for how to have a different outcome after this discharge. He typically is noncompliant with treatment and rapidly relapses. -Patient is not engaged in treatment, and has been poorly responsive to attempts to assist him to engage. (2) Opiate dependence 03/13 - History of misrepresenting and minimizing substance abuse, and so unreliable historian. States he took one dose of Suboxone this week, which per the lab would not show up as a positive opiate screen, so cannot rule out ongoing heroin use or prescription opiate abuse. Was seen in ER 2 months ago for heroin OD and received Narcan. Will follow up on UDS results. Continue clonidine protocol for withdrawal. Brief intervention was offered and accepted. Intervention was greater than 5 min in length. Brief interventions include: 1. Assess Readiness to Quit, 2. Advise: Help Patient to Reduce or Abstain from Alcohol, 3. Agree: Set Specific, Feasible Goals, 4. Assist: Anticipate barriers, Problem-Solving Solutions. Social work to 5. Arrange: Referrals to appropriate treatment. Summary of intervention: The patient is in precontemplation stage with regards to transtheoretical model of change. The patient is advised to decrease alcohol consumption due to depressant effects and risk of interactions with prescription medications. The patient agreed to consider rehab and IOP, and will be provided with recovery materials to continue to education self on how to cope with their condition without drinking. -Patient has long-standing polysubstance abuse, and should not be prescribed controlled substances due to the high risk of abuse/misuse/negative outcomes. 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 -Patient denies being on probation or parole, but was recently released from intermediate for drug/DUI charges. 03/14-patient refusing scheduled clonidine, and blood pressure is normal, so will discontinue it but continue the as needed dose. 03/15-confirmatory drug screen results positive for morphine, which per lab indicates heroin use. Strongly encourage inpatient rehab, due to the risk of if he continues to use, as he has already had one near fatal overdose. He continues to refuse. (3) Methamphetamine abuse 03/13 - UDS + for meth/amphet. He reports prescription stimulant abuse, but on multiple past admission has lied about his drug use and reported abusing stimulants when in fact he was abusing meth. Supportive treatment for withdrawal. 03/15--confirmatory drug screen results positive for methamphetamine, with an extremely high level >25,000ng/ml. encourage patient to be honest about his substance use, and to work on a plan to change his behavior. (4) Antisocial personality disorder History of dishonesty in treatment, manipulating others, repeated acts that are grounds for arrest, impulsivity and failure to plan ahead, irritability, consistent irresponsibility, and lack of remorse. (5) Tobacco use disorder Nicotine patch and gun prn. (6) Amphetamine abuse Patient reports ongoing stimulant abuse, which he gets illegally. (7) MRSA carrier EMR shows MRSA + swab from 05/2017 (from intermediate). Will maintain patient in a private room due to MRSA + status, and will re-swab today. (8) Elevated transaminase level 03/13 -AST elevated at 65, and ALT at 124. Looking at his lifetime history of labs here, he has had elevated AST since 2014, and elevated ALT since 2012. He should follow with his PCP for ongoing workup. Differential includes alcohol abuse and hepatitis C; history of IV drug use. Discharge / Aftercare Planning Primary Care Physician: Name: Jad Starkey Date of Appointment: Mar 22, 2018 Time of Appointment: 10:05 a.m. Appointment Notes: [address] [place] [address], [place] [address] Psychiatrist: Name: [facility] - Intake with Poornima Walter Date of Appointment: Mar 19, 2018 Time of Appointment: 11:00 a.m. Appointment Notes: [address] [place] [id number] Therapist: Name: Clarence St Date of Appointment: Apr 02, 2018 Time of Appointment: 11:00 a.m. Appointment Notes: [facility] [place] [address] Cardiopulmonary Physical Therapist: Name: None Inventory Assets Strengths: Has housing, willing for treatment Needs: Substance abuse treatment, compliance with treatment, abstinence from substances , honesty in treatment Risk Factors Assessment Male: Yes : Yes /single/: Yes Higher / Fall in social status: No Health problems: Yes Mental Health Diagnoses: Yes Substance use disorders: Yes Previous attempt: Yes Family history of suicide: No Previous psychiatric stay: Yes Hopelessness: Yes Smoker: Yes Protective Factors Assessment Taoist beliefs: No : No Responsible for young children: No (Has children but denies custoody) Employed: No Stable relationships: No (GF has cut off communication) Supportive family: No Good rapport with provider: No (noncompliant, no providers currently) Absence of risk factors above: No Data Vital Signs Last 24 Hrs: Date Time Temp Pulse Resp B/P (MAP) Pulse Ox O2 Delivery O2 Flow Rate FiO2 03/16/18 06:43 36.7 80 16 115/75 65 111/77 Problem Qualifiers (1) Depression: Depression Type: unspecified Qualified Codes: F32.9 - Major depressive disorder, single episode, unspecified
--- NOTE | 2018-03-16 13:12 | Discharge Instructions ---
Discharge Information Report Includes Report will include the: Discharge Instructions & Summary Admission Admission Date / Time: Mar 12, 2018 at 15:02 Reason for Admission: Polysubstance Abuse,Suicidal Ideation Discharge Discharge Diagnosis / Problem: Mood disorder related to substance abuse Condition at Discharge: Fair Discharge Goals Goal(s): Decrease discomfort, Improve function Activity Recommendations Activity Limitations: resume your previous activity . Instructions / Follow-Up Instructions / Follow-Up . SPECIAL CARE INSTRUCTIONS: 1. Follow through with your scheduled aftercare appointments. If unable to keep an appointment, please call to reschedule. 2. Take your medication only as prescribed. Medication should not be changed or stopped without the approval of your doctor. In the event of worsening symptoms or concerns about side effects, contact your doctor immediately. 3. Utilize new healthy coping skills, anger management skills, and stress management skills learned during your hospitalization. Journal feelings and process them with a support person. Identify stressors or situations that may result in relapse, deterioration or inappropriate behaviors and develop a plan to deal with those issues. 4. If your coping skills are ineffective and you are in crisis, contact your outpatient providers for direction. If unable to reach your providers, please call the CAN HELP LINE AT or go to the closest Emergency Room. 5. Avoid alcohol and un-prescribed drugs. 6. You have been provided with the Mental Health Advance Directives Pamphlet for your review. AFTERCARE APPOINTMENTS: * Please call your insurance company prior to your scheduled appointment to confirm your aftercare providers are covered. Take your insurance information to your appointments. . Discharge / Aftercare Planning Primary Care Physician: Name: Jad Starkey Date of Appointment: Mar 22, 2018 Time of Appointment: 10:05 a.m. Appointment Notes: [address] [place] [address], [place] [address] Psychiatrist: Name: [facility] Casi Squires with Poornima Walter Date of Appointment: Mar 19, 2018 Time of Appointment: 11:00 a.m. Appointment Notes: [address] [place], [place] [address] [address] Therapist: Name Of Therapist: Clarence St Date of Appointment: Apr 02, 2018 Time of Appointment: 11:00 a.m. Appointment Comments: [employer], [place] [id number] Tax Examiner: Name: None . Follow-Up Care Plan for Follow-Up Care: The patient will have an intake at [facility] on 03/19/18 Current Hospital Diet Patient's current hospital diet: Regular Diet Discharge Diet Recommended Diet: Regular Diet Procedures Procedures Performed: No Lipid Panel Test 03/13/18 08:08 Range/Units Triglycerides Level 209 H 0-150 mg/dl Cholesterol Level 154 0-200 mg/dl HDL Cholesterol 27 mg/dl Cholesterol/HDL Ratio 5.7 LDL Cholesterol, Calculated 85 mg/dl Pending Studies Pending Studies at Discharge: No Medical Emergencies . Who to Call and When: Medical Emergencies: For questions or emergencies related to your hospital stay, please contact the Inpatient Behavioral Health Unit at [phone]. A co op is on-call 13/03 for the Behavioral Health Unit for emergencies At any time you feel your situation is an emergency, you may also call 911 immediately. . Non-Emergent Contact Non-Emergency issues call your: Primary Care Provider, Psychiatrist, Therapist Advance Directives Do You Have an Existing Mental: No Existing Living Will: No Existing Power of Software Application Tester: No Advance Directives Info Given: To Pt/S.O. Advance Directives Reason: Declines as Mental Health Visit. Discharge Summary Admission HPI Per the Admitting provider: Patient is well known to us from multiple previous admissions, last here in March 2017 under similar circumstances, was abusing multiple substances and suicidal in the context of noncompliance with outpatient treatment. At that time, the recommendations were for inpatient rehab, which had also been recommended by his counselor at [facility] methadone clinic, but he had not followed through. Due to probation violation, he was served a warrant an transferred directly from the hospital to group home. He was placed on a methadone taper and withdrawal protocol due to inability to get methadone in group home. He reports being in group home for about 6 months, and over the past year, has been seen in the emergency room on a regular basis for flank pain, headaches, and chest pain. He was seen for in the ER for suicidal thoughts on 12/22/2017, at which time drug screen was positive for methadone and marijuana, and was transferred to [facility] for inpatient treatment. He was seen again in the emergency room on 01/06/2018 for a heroin overdose after EMS brought him in. According to EMS documents, his girlfriend called 911 after he fell while using drugs, and she found him unconscious on the floor. He had broken a chair, and there was drug paraphernalia lying next to him, including a syringe and baggies. His girlfriend stated he had recently been inpatient at the [facility] and was taking clonazepam, lisinopril, and Seroquel. His pupils were pinpoint and nonreactive, he was cyanotic and unresponsive and had to be ventilated. He received intranasal and intravenous naloxone, and woke up and was transported to the ER. Yesterday, he presented to the emergency room stating he had not been feeling well for a couple of days, and had suicidal thoughts to overdose or "simply disappear." He endorsed worsening depression, low motivation, decreased appetite, poor sleep, noncompliance with his medications, and not caring for himself. He said his electricity has been shut off for about a month, and he lost his job a couple of months ago. His girlfriend is in rehab, and has stopped contacting him and changed her bank card so he can no longer access her money. He stated that he did not want to live, and wanted to give up. He was tearful with poor eye contact. Drug screen positive for opiates, amphetamine/ methamphetamine, and MDMA. He admitted to abusing Ritalin and Suboxone, said he has no insurance, and no outpatient providers. Since arriving on the unit, he has been in his room in bed, and refused breakfast and all groups today. On my assessment, he was seen with Albino Barakat, MS 4. He is a limited historian , is not forthcoming with information, and gives only short, vague answers to questions. He states that after his last discharge from our unit in March 2017 he went to group home until September 2017. After release from group home, he resumed his drug use, and says that he went to rehab at [facility] after overdosing on heroin in December 2017. He says he was discharged from rehab after 2 weeks, and was supposed to follow-up at [facility], but never went. He never followed up with an outpatient psychiatrist, and does not have any current providers. He denies that he is on probation or has current legal charges. He continues to deny opiate use, even when informed that Suboxone would not cause a positive drug screen for opiates. He denies current withdrawal symptoms. He states his goals of treatment are "just take my meds," and says he is willing to consider substance abuse treatment. Hospital Course (1) Depression 03/13 -Differential includes MDD, personality disorder, substance induced depression. Collateral information from a reliable source would be helpful, as patient not necessarily forthcoming. -Suicide checks for safety. -Resume home meds: quetiapine XR qam and escitalopram 20mg. Hold prazosin due to hypotension risk, as being treated with clonidine for opiate withdrawal. -Fasting glucose normal at 90, fasting lipid profile notable for elevated triglycerides 209. Referred back to PCP for ongoing monitoring. -Coordinate with case manage, Rossi Maldonado. Has not been compliant with OP treatment, unclear if has providers currently. Would benefit from dual diagnosis treatment. -Refer for outpatient dual diagnosis treatment. 03/14 -Continue current meds, refer for dual diagnosis outpatient treatment at [facility]. Refer for case management services. -Lock door during group times to encourage him to be out of bed and participating in treatment. -He continues to decline a family meeting, but encouraged him to think about who could help support him after discharge, and to involve those people in his treatment. 03/15 -Confirmatory drug screen results confirm heroin and meth use. Encourage patient to be more forthcoming in treatment, and to start working on plans for how to have a different outcome after this discharge. He typically is noncompliant with treatment and rapidly relapses. -Patient is not engaged in treatment, and has been poorly responsive to attempts to assist him to engage. (2) Opiate dependence 03/13 - History of misrepresenting and minimizing substance abuse, and so unreliable historian. States he took one dose of Suboxone this week, which per the lab would not show up as a positive opiate screen, so cannot rule out ongoing heroin use or prescription opiate abuse. Was seen in ER 2 months ago for heroin OD and received Narcan. Will follow up on UDS results. Continue clonidine protocol for withdrawal. Brief intervention was offered and accepted. Intervention was greater than 5 min in length. Brief interventions include: 1. Assess Readiness to Quit, 2. Advise: Help Patient to Reduce or Abstain from Alcohol, 3. Agree: Set Specific, Feasible Goals, 4. Assist: Anticipate barriers, Problem-Solving Solutions. Social work to 5. Arrange: Referrals to appropriate treatment. Summary of intervention: The patient is in precontemplation stage with regards to transtheoretical model of change. The patient is advised to decrease alcohol consumption due to depressant effects and risk of interactions with prescription medications. The patient agreed to consider rehab and IOP, and will be provided with recovery materials to continue to education self on how to cope with their condition without drinking. -Patient has long-standing polysubstance abuse, and should not be prescribed controlled substances due to the high risk of abuse/misuse/negative outcomes. 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 -Patient denies being on probation or parole, but was recently released from group home for drug/DUI charges. 03/14-patient refusing scheduled clonidine, and blood pressure is normal, so will discontinue it but continue the as needed dose. 03/15-confirmatory drug screen results positive for morphine, which per lab indicates heroin use. Strongly encourage inpatient rehab, due to the risk of if he continues to use, as he has already had one near fatal overdose. He continues to refuse. (3) Methamphetamine abuse 03/13 - UDS + for meth/amphet. He reports prescription stimulant abuse, but on multiple past admission has lied about his drug use and reported abusing stimulants when in fact he was abusing meth. Supportive treatment for withdrawal. 03/15--confirmatory drug screen results positive for methamphetamine, with an extremely high level >25,000ng/ml. encourage patient to be honest about his substance use, and to work on a plan to change his behavior. (4) Antisocial personality disorder History of dishonesty in treatment, manipulating others, repeated acts that are grounds for arrest, impulsivity and failure to plan ahead, irritability, consistent irresponsibility, and lack of remorse. (5) Tobacco use disorder Nicotine patch and gun prn. (6) Amphetamine abuse Patient reports ongoing stimulant abuse, which he gets illegally. (7) MRSA carrier EMR shows MRSA + swab from 05/2017 (from nursing home). Will maintain patient in a private room due to MRSA + status, and will re-swab today. (8) Elevated transaminase level 03/13 -AST elevated at 65, and ALT at 124. Looking at his lifetime history of labs here, he has had elevated AST since 2014, and elevated ALT since 2012. He should follow with his PCP for ongoing workup. Differential includes alcohol abuse and hepatitis C; history of IV drug use. Risk Factors Assessment Male: Yes : Yes /single/: Yes Higher / Fall in social status: No Health problems: Yes Mental Health Diagnoses: Yes Substance use disorders: Yes Previous attempt: Yes Family history of suicide: No Previous psychiatric stay: Yes Hopelessness: Yes Smoker: Yes Protective Factors Assessment Quaker beliefs: No : No Responsible for young children: No (Has children but denies custoody) Employed: No Stable relationships: No (GF has cut off communication) Supportive family: No Good rapport with provider: No (noncompliant, no providers currently) Absence of risk factors above: No Day of Discharge Assessment COURSE OF HOSPITALIZATION: The patient has been on her unit for 4 days. He was admitted with depression and suicidal thoughts in the setting of significant substance use and being alone because his girlfriend is in rehab. For additional admission information I refer you to the attached history and physical. During his stay, he was continued on his medications although initially Lexapro was reduced from 30-20 mg. Unfortunately, the patient had not been honest about his substance use but the drug screen was positive for methamphetamines, amphetamines, and morphine. The patient was not participatory in his treatment, avoiding group and individual activities preferring to stay in his bed and sleep. He would not respond to encouragement and redirection and so we employed locking his bedroom door in order to get him to stay out of his room and participate in his treatment. Our primary recommendation was that he return to rehab in view of the seriousness of his substance use problems which she avoided making a decision on until he was pressured to do so today. When he was pressured, he indicated he did not want to go to rehab and preferred to be discharged home. He then said he had a safety plan and was planning to go home and Paxil things and go stay with his father and later when nursing checked with him he said he never said he was going to stay with his father and is going to have a friend pick him up. He tells me there are no drugs in the house. He will have follow-up with [facility] and will have an intake at [facility] within the week. What he did focus on during his stay was the fact that his girlfriend is currently in rehab and prior to going had shocked him off from using her money card and has not communicated with them since going to rehab. He feels forlorn and desperate about these things and kept repeating "if only I could talk with her". He did not seem motivated to care for himself, nor did he seem invested in his own care and demonstrated a great deal of dependent characteristics. We did not feel that his needs could be met any further on a short-term inpatient mental health treatment as the vast majority of his problems would require an inpatient drug rehab. We attempted to mitigate risk factors using medications, group and individual therapy, aftercare planning, family meeting however the patient put limits on what he was willing to engage in and essentially made no changes in his life while he was hospitalized. He carries a diagnosis of antisocial personality disorder as well as polysubstance dependence and abuse. There was some suspicion that he was trying to wait out his girlfriend's absence by being in the hospital. DAY OF DISCHARGE ASSESSMENT: Today the patient has decided that he will not go to rehab and would like to be discharged home. He lied to the undersigned in saying that he would go stay with his father but when asked about it by nursing later he denied ever having said that. He plans to have a friend pick him up and there is high likelihood that he will return to using drugs within a short period of time. We have encouraged him to attend rehab, attend AA, and clearly we have counseled him to keep all of his scheduled outpatient appointments. He is denying suicidality. He denies auditory or visual hallucinations. Today he is unkempt, unshowered and disheveled. He is malodorous. Gait and station are within normal limits. Eye contact is poor, affect is flat, speech is minimal, quiet. Thoughts are organized, goal-directed, without evidence of thought disorder. Recent and remote memory are intact per conversation. Intelligence estimated to be average. Insight and judgment improved over admission. Laboratory Test 03/12/18 11:50 03/12/18 12:19 03/12/18 12:21 03/13/18 08:08 Urine Color YELLOW Urine Appearance CLEAR Urine pH 5.5 Urine Specific [place] 1.024 Urine Protein NEG Urine Glucose (UA) NEG Urine Ketones TRACE Urine Occult Blood NEG Urine Nitrite NEG Urine Bilirubin NEG Urine Urobilinogen NEG Urine Leukocyte Esterase NEG Urine Opiates Screen POS Urine Codeine Confirmation (GC/MS) NEGATIVE Urine Morphine Confirm (GC/MS) 282 Urine Hydrocodone Confirm (GC/MS) NEGATIVE Urine Norhydrocodone NEGATIVE Urine Noroxycodone NEGATIVE Urine Oxycodone Confirm (GC/MS) NEGATIVE Urine Oxymorphone Confirm (GC/MS) NEGATIVE Urine Methadone, Qualitative NEG Urine Hydromorphone Confirm (GC/MS) NEGATIVE Urine Barbiturates NEG Urine Phencyclidine (PCP) Level NEG Urine Amphetamines Confirmation 3250 Ur Amphetamine/Methamphetamine POS Urine Methamphetamine Confirmation >59227 Urine MDE-amphetamine (MDEA) negative Ur Methylenedioxyamphetamine (MDA) negative MDMA (Ecstasy) Screen POS Methylenedioxymethamphetamine (MDMA negative Urine Benzodiazepines Screen NEG Urine Cocaine Metabolite NEG Urine Marijuana (THC) NEG White Blood Count 9.29 Red Blood Count 4.57 Hemoglobin 13.9 Hematocrit 41.2 Mean Corpuscular Volume 90.2 Mean Corpuscular Hemoglobin 30.4 Mean Corpuscular Hemoglobin Concent 33.7 Platelet Count 328 Mean Platelet Volume 9.4 Neutrophils (%) (Auto) 63.3 Lymphocytes (%) (Auto) 27.9 Monocytes (%) (Auto) 6.8 Eosinophils (%) (Auto) 1.2 Basophils (%) (Auto) 0.4 Neutrophils # (Auto) 5.88 Lymphocytes # (Auto) 2.59 Monocytes # (Auto) 0.63 Eosinophils # (Auto) 0.11 Basophils # (Auto) 0.04 RDW Standard Deviation 43.9 RDW Coefficient of Variation 13.4 Immature Granulocyte % (Auto) 0.4 Immature Granulocyte # (Auto) 0.04 Sodium Level 140 Potassium Level 4.0 Chloride Level 104 Carbon Dioxide Level 29 Anion Gap 6.0 Blood Urea Nitrogen 13 Creatinine 1.07 Est Creatinine Clear Calc Drug Dose 96.6 Estimated GFR () 103.0 Estimated GFR (Non- 88.8 BUN/Creatinine Ratio 12.1 Random Glucose 95 Calcium Level 9.0 Total Bilirubin 0.4 Direct Bilirubin 0.1 Aspartate Amino Transferase (AST) 65 Alanine Aminotransferase (ALT) 124 Alkaline Phosphatase 117 Total Protein 7.9 Albumin 3.5 Thyroid Stimulating Hormone (TSH) 1.080 Ethyl Alcohol mg/dL < 3.0 POC Glucose 93 Fasting Glucose 90 Triglycerides Level 209 Cholesterol Level 154 HDL Cholesterol 27 LDL Cholesterol, Calculated 85 VLDL Cholesterol, Calculated 42 Cholesterol/HDL Ratio 5.7 Total Time Total Time Spent (min): Greater than 30 minutes Total Time Included: examination of the patient, discharge planning, medication reconciliation, communication with other providers Transition of Care Transition of care record: was reviewed with the patient Tobacco Cessation at Discharge Smoking Status: Current Every Day Smoker FDA approved Prescription: declined med & out pt counseling Problem Qualifiers (1) Depression: Depression Type: unspecified Qualified Codes: F32.9 - Major depressive disorder, single episode, unspecified
== END 2018-03-16 16:10 | disposition home or self-care (01) | DRG 881 ==
LOC: C.EDB 11:23 → C.MHU 15:02
PROVIDERS: ADMIT Psychiatry & Neurology Psychiatry; ATTEND Psychiatry & Neurology Psychiatry
DX: F32.9 Major depressive disorder, single episode, unspecified (principal); R45.851 Suicidal ideations; F11.20 Opioid dependence, uncomplicated; F15.10 Other stimulant abuse, uncomplicated; F60.2 Antisocial personality disorder; R74.0 Nonspecific elevation of levels of transaminase and lactic acid dehydrogenase [LDH]; E66.9 Obesity, unspecified; F17.200 Nicotine dependence, unspecified, uncomplicated; Z91.14 Patient's other noncompliance with medication regimen; Z79.899 Other long term (current) drug therapy; Z22.322 Carrier or suspected carrier of Methicillin resistant Staphylococcus aureus; Z68.33 Body mass index [BMI] 33.0-33.9, adult

== ENCOUNTER 2018-03-31 23:17 | Emergency (ER) | payer OTHER ==
[~2018-03-31] VITALS: Ht 162.6 cm; Wt 103.1 kg
[~2018-03-31 23:17] MED LIST changes: -CLON0.5T9 PO; +ESCI1TAB10 PO; -NALO1SPR INT SPINAL; +PRAZ2CAP3 PO; +QUET400T PO
[2018-03-31 23:22] VITALS: TEMP 36.8; Ht 162.6 cm; Wt 103.1 kg
--- NOTE | 2018-04-01 00:03 | EMERGENCY ROOM VISIT NOTE ---
History Report prepared by Larisa: Joe Galvez Under the Supervision of: Dr. Stas Bellamy M.D. First contact with patient: 23:29 Chief Complaint: MENTAL HEALTH EVALUATION Stated Complaint: MAJOR DEPRESSION, ANXIETY, SUICIDAL IDEATIONS History of Present Illness The patient is a 37 year old male who presents to the Emergency Room with complaints of worsening depression that began about a week ago. Patient states that "life sucks" and admits to having suicidal ideations. He states he has thought about cutting himself, in addition to having new thoughts recently about wanting to hang himself after "researching it". He states nothing happened specifically today to worsen his symptoms but it has just been building up over the past week. Patient adds he is being evicted from his apartment and currently lives by himself with no electricity. He states his father lives in the area but denies having much interaction with him. He adds that his father is the one who brought him [facility] the [facility]. Past medical history includes major depression, anxiety, and PTSD. Patient states he is prescribed Lexapro, Seroquel, Lisinopril, and Perazine but is not taking them. Patient has a history of drug use but states he has been clean with no marijuana or pill use for the past week. Patient denies having a job. He states he is in a relationship which he denies any problems with. Patient adds he was admitted to [facility] a couple of weeks ago. Source of History: patient Onset: A week ago Position: head Timing: worsening Modifying Factors (Relieving): other (None) Note: Positive suicidal ideations. Review of Systems See HPI for pertinent positives & negatives. A total of 10 systems reviewed and were otherwise negative. Past Medical & Surgical Medical Problems: (1) Acute gastroenteritis (2) Amphetamine abuse (3) Antisocial personality disorder (4) Anxiety (5) Cannabis abuse (6) Cannabis use disorder, mild, abuse (7) Chronic back pain (8) Depression (9) Elevated transaminase level (10) Flank pain (11) Gallbladder problem (12) Heroin overdose (13) Major depressive disorder, recurrent severe without psychotic features (14) Methamphetamine abuse (15) MRSA carrier (16) Nephrolithiasis (17) Obesity (18) Opiate dependence (19) Polysubstance abuse (20) PTSD (post-traumatic stress disorder) (21) Spasm of back muscles (22) Suicidal ideation (23) Thoracic back pain (24) Tobacco use disorder (25) Ureteral calculi Surgical Problems: (1) Cholecystectomy (2) History of cholecystectomy (3) History of renal stent Social History Problems: (1) Stomach problems Family History Patient reports no known family medical history. Social History Smoking Status: Current Every Day Smoker Alcohol Use: none Drug Use: marijuana, other Marital Status: in relationship Housing Status: lives with family Occupation Status: unemployed Current/Historical Medications Scheduled Escitalopram Oxalate (Lexapro), 30 MG PO DAILY Lisinopril (Prinivil), 10 MG PO DAILY Prazosin Hcl (Prazosin), 1 MG PO BID Quetiapine Fumarate Xr (Seroquel Xr Tab), 400 MG PO QPM Allergies Coded Allergies: No Known Allergies (Verified , 04/01/18) Physical Exam Vital Signs Date Time Temp Pulse Resp B/P (MAP) Pulse Ox O2 Delivery O2 Flow Rate FiO2 04/01/18 06:54 97 14 110/78 98 04/01/18 01:59 71 16 136/85 98 Room Air 03/31/18 23:22 36.8 65 16 166/83 98 Room Air Physical Exam GENERAL: Patient is well appearing and in no acute distress. EYES: No scleral icterus, unremarkable pupils. ENT: Mucous membranes moist, no nasal congestion. NECK: No masses appreciated, no meningismus, trachea is midline. RESPIRATORY: No dyspnea. Clear to auscultation and equal bilaterally. No wheeze , no rhonchi. CARDIOVASCULAR: Regular rate and rhythm. No murmurs, rubs, gallops appreciated. GASTROINTESTINAL: Abdomen soft, nontender, no peritonitis. Bowel sounds positive. No masses appreciated. BACK: No midline tenderness, no CVA tenderness EXTREMITIES: Normal motion all extremities, no cyanosis, no edema. NEUROLOGIC: Alert and oriented, no acute motor or sensory deficits, no focal weakness, cranial nerves grossly intact. SKIN: No rash, no jaundice, no diaphoresis. PSYCH: notes suicidal ideation with plan. No hallucination . Admits depression. Medical Decision & Procedures Laboratory Results 03/31/18 23:46 Red Blood Count 5.10, Mean Corpuscular Volume 91.2, Mean Corpuscular Hemoglobin 31.4, Mean Corpuscular Hemoglobin Concent 34.4, Mean Platelet Volume 9.5, Neutrophils (%) (Auto) 52.0, Lymphocytes (%) (Auto) 36.3, Monocytes (%) (Auto) 8.5, Eosinophils (%) (Auto) 2.4, Basophils (%) (Auto) 0.4, Neutrophils # (Auto) 7.25, Lymphocytes # (Auto) 5.05, Monocytes # (Auto) 1.18, Eosinophils # (Auto) 0.33, Basophils # (Auto) 0.06 03/31/18 23:46 Test 03/31/18 23:46 White Blood Count 13.93 K/uL (4.8-10.8) Red Blood Count 5.10 M/uL (4.7-6.1) Hemoglobin 16.0 g/dL (14.0-18.0) Hematocrit 46.5 % (42-52) Mean Corpuscular Volume 91.2 fL (80-100) Mean Corpuscular Hemoglobin 31.4 pg (25-34) Mean Corpuscular Hemoglobin Concent 34.4 g/dl (32-36) Platelet Count 344 K/uL (130-400) Mean Platelet Volume 9.5 fL (7.4-10.4) Neutrophils (%) (Auto) 52.0 % Lymphocytes (%) (Auto) 36.3 % Monocytes (%) (Auto) 8.5 % Eosinophils (%) (Auto) 2.4 % Basophils (%) (Auto) 0.4 % Neutrophils # (Auto) 7.25 K/uL (1.4-6.5) Lymphocytes # (Auto) 5.05 K/uL (1.2-3.4) Monocytes # (Auto) 1.18 K/uL (0.11-0.59) Eosinophils # (Auto) 0.33 K/uL (0-0.5) Basophils # (Auto) 0.06 K/uL (0-0.2) RDW Standard Deviation 45.2 fL (36.4-46.3) RDW Coefficient of Variation 13.5 % (11.5-14.5) Immature Granulocyte % (Auto) 0.4 % Immature Granulocyte # (Auto) 0.06 K/uL (0.00-0.02) Urine Color YELLOW Urine Appearance CLEAR (CLEAR) Urine pH 5.5 (4.5-7.5) Urine Specific [place] >= 1.030 (1.000-1.030) Urine Protein NEG (NEG) Urine Glucose (UA) NEG (NEG) Urine Ketones NEG (NEG) Urine Occult Blood NEG (NEG) Urine Nitrite NEG (NEG) Urine Bilirubin NEG (NEG) Urine Urobilinogen NEG (NEG) Urine Leukocyte Esterase NEG (NEG) Anion Gap 8.0 mmol/L (3-11) Est Creatinine Clear Calc Drug Dose 86.6 ml/min Estimated GFR () 82.9 Estimated GFR (Non- 71.5 BUN/Creatinine Ratio 8.2 (10-20) Calcium Level 8.8 mg/dl (8.5-10.1) Total Bilirubin 0.3 mg/dl (0.2-1) Aspartate Amino Transf (AST/SGOT) 20 U/L (15-37) Alanine Aminotransferase (ALT/SGPT) 41 U/L (12-78) Alkaline Phosphatase 92 U/L (45-117) Total Protein 8.7 gm/dl (6.4-8.2) Albumin 3.7 gm/dl (3.4-5.0) Globulin 5.0 gm/dl (2.5-4.0) Albumin/Globulin Ratio 0.7 (0.9-2) Thyroid Stimulating Hormone (TSH) 1.530 uIu/ml (0.300-4.500) Salicylates Level < 1.7 mg/dl (2.8-20) Urine Opiates Screen NEG (NEG) Urine Methadone, Qualitative NEG (NEG) Acetaminophen Level < 2 ug/ml (10-30) Urine Barbiturates NEG (NEG) Urine Phencyclidine (PCP) Level NEG (NEG) Ur Amphetamine/Methamphetamine NEG (NEG) MDMA (Ecstasy) Screen NEG (NEG) Urine Benzodiazepines Screen NEG (NEG) Urine Cocaine Metabolite NEG (NEG) Urine Marijuana (THC) NEG (NEG) Ethyl Alcohol mg/dL < 3.0 mg/dl (0-3) Laboratory results as reviewed by me. Medications Administered Medications (Trade) Dose Ordered Sig/Jaime Route Start Time Stop Time Status Last Admin Dose Admin Quetiapine Fumarate (seroQUEL XR TAB) 400 mg NOW STAT PO 04/01/18 01:16 18 01:18 DC 04/01/18 01:28 400 MG ED Course 2354: The patient was evaluated in room A6. A complete history and physical exam was performed. 0058: I reevaluated the patient. He is medically cleared and states he would like to go to the [facility]. Mental health is talking with the patient now. Medical Decision Differential: Mood Disorder, Overdose, Infectious, Electrolyte Abnormality, Cardiac, Hepatic, Endocrine, Toxicologic, Neurologic, amongst other pathologies entertained. 37 yr old male who arrives for evaluation of depression. Admits previous drug use and multiple previous psych issues. States he has been thinking about hanging self or cutting wrists. No evidence of actual harm to self yet and medically he is clear. No report of withdrawal. Accepted to the [facility] for further treatment and evaluation. Medication Reconcilliation Current Medication List: was personally reviewed by me Blood Pressure Screening Patient's blood pressure: Normal blood pressure Impression Primary Impression: Suicidal ideation Additional Impression: Depression Scribe Attestation The scribe's documentation has been prepared under my direction and personally reviewed by me in its entirety. I confirm that the note above accurately reflects all work, treatment, procedures, and medical decision making performed by me. Departure Information Referrals Olivia Amin M.D. (MEDICAL) (PCP) Patient Instructions My [facility] Problem Qualifiers
[2018-04-01 00:16] LABS: HEMATOCRIT 46.5 % (42-52); MEAN CELL VOLUME 91.2 fL (80-100); MEAN CORPUSCULAR HEMOGLOBIN 31.4 pg (25-34); MEAN CORPUSCULAR HGB CONC 34.4 g/dl (32-36); MEAN PLATELET VOLUME 9.5 fL (7.4-10.4); PLATELET COUNT 344 K/uL (130-400); RED CELL DISTRIBUTION WIDTH CV 13.5 % (11.5-14.5); RED CELL DISTRIBUTION WIDTH SD 45.2 fL (36.4-46.3); WHITE BLOOD COUNT 13.93 K/uL (4.8-10.8)
[2018-04-01 00:36] LABS: ALBUMIN 3.7 gm/dl (3.4-5.0); CALCIUM 8.8 mg/dl (8.5-10.1); CREATININE 1.28 mg/dl (0.60-1.40); POTASSIUM 3.8 mmol/L (3.5-5.1); TOTAL PROTEIN 8.7 gm/dl (6.4-8.2)
[2018-04-01 00:50] LABS: BASO % 0.4 %; BASO ABS # 0.06 K/uL (0-0.2); EOS % 2.4 %; EOS ABS # 0.33 K/uL (0-0.5); IG# 0.06 K/uL (0.00-0.02); LYMPH % 36.3 %; LYMPH ABS # 5.05 K/uL (1.2-3.4); MONO % 8.5 %; MONO ABS # 1.18 K/uL (0.11-0.59); NEUT ABS # 7.25 K/uL (1.4-6.5)
[2018-04-01] MEDS ORDERED: QUETIAPINE FUMARATE 200 MG TABCR PO STA (01:16)
[2018-04-01 06:54] VITALS: BP 110/78; PULSE 97; O2SAT 98
== END 2018-04-01 06:54 ==
LOC: C.EDB 23:18 → C.EDA 04-01 06:54
DX: R45.851 Suicidal ideations (principal); F32.9 Major depressive disorder, single episode, unspecified; F43.10 Post-traumatic stress disorder, unspecified; F41.9 Anxiety disorder, unspecified; F17.200 Nicotine dependence, unspecified, uncomplicated; Z86.59 Personal history of other mental and behavioral disorders

== ENCOUNTER 2019-07-11 15:49 | Inpatient (IN) ==
[2019-07-11] MEDS ORDERED: TOPIRAMATE 50 MG TAB PO STA (16:40)
[2019-07-11] MEDS ORDERED: ARIPIprazole SOLN 10 MG/10 ML UDP PO STA (16:40)
[2019-07-11] MEDS ORDERED: PRAZOSIN HCL 1 MG CAP PO STA (16:40)
[2019-07-11] MEDS ORDERED: lisinopriL 5 MG TAB PO ONE (16:40)
[2019-07-11] MEDS ORDERED: METFORMIN HCL 500 MG TAB PO STA (16:40)
[2019-07-11] MEDS ORDERED: AMITRIPTYLINE HCL 100 MG TAB PO STA (16:40)
[2019-07-11 17:07] LABS: Basophils # (auto) 0.06 K/uL (0-0.2); Basophils % (auto) 0.7 %; Eosinophils % (auto) 1.2 %; Hematocrit (blood only) 43.3 % (42-52); Hemoglobin 14.6 g/dL (14.0-18.0); Immature Granulocytes # (auto) 0.09 K/uL (0.00-0.02); Lymphocytes # (auto) 3.63 K/uL (1.2-3.4); Lymphocytes % (auto) 42.2 %; Mean Corpuscular Hemoglobin 31.1 pg (25-34); Mean Corpuscular Hgb Conc 33.7 g/dL (32-36); Mean Corpuscular Volume 92.1 fL (80-100); Mean Platelet Volume 8.9 fL (7.4-10.4); Monocytes % (auto) 10.5 %; Neutrophils # (auto) 3.82 K/uL (1.4-6.5); Neutrophils % (auto) 44.4 %; Platelet Count 283 K/uL (130-400); RDW Coefficient of Variation 13.8 % (11.5-14.5); RDW Standard Deviation 46.2 fL (36.4-46.3)
[2019-07-11 17:22] LABS: Albumin Level 3.5 gm/dl (3.4-5.0); BUN Creatinine Ratio 9.3 (10-20); Calcium 9.3 mg/dl (8.5-10.1); Est GFR (Non-African American) 80.3
[2019-07-11 17:33] LABS: Albumin Globulin Ratio 0.8 (0.9-2); Bilirubin,Total 0.2 mg/dl (0.2-1); Globulin 4.2 gm/dl (2.5-4.0); Thyroid Stimulating Hormone 3.62 uIu/ml (0.300-4.500); Total Protein 7.7 gm/dl (6.4-8.2)
[2019-07-11 17:46] LABS: Acetaminophen < 2 ug/ml (10-30); Salicylate 1.7 mg/dl (2.8-20)
[2019-07-11 18:43] LABS: Appearance Urine Clear (Clear); Bacteria Urine Automated Negative (Negative); Bilirubin Urine Negative (Negative); Blood Urine Trace (Negative); Cast Urine Automated 0 /lpf (0-5); Color Urine Yellow; Epithelial Cell Urine Auto 0-5 /lpf (0-5); Glucose Urine UA Negative (Negative); Ketones Urine Negative (Negative); Leukocyte Esterase Urine Negative (Negative); Nitrite Urine Negative (Negative); Protein Urine Negative (Negative); RBC Urine Automated 0-4 /hpf (0-4); Urobilinogen Urine Negative (Negative)
[2019-07-11 19:13] LABS: Amphetamines+Metham, Urine Pos (Neg); Barbiturates, Urine Neg (Neg); Benzodiazepine, Urine Neg (Neg); Cocaine, Urine Neg (Neg); MDMA (Ecstacy), Urine Pos (Neg); Methadone, Urine Neg (Neg); Opiate, Urine Neg (Neg); Phencyclidine, Urine Neg (Neg)
[2019-07-11] MEDS ORDERED: SODIUM CHLORIDE 0.65% NA SOLN 45 ML (OCEAN) PRN (20:37)
[2019-07-11] MEDS ORDERED: ALUMINUM/MAGNESIUM SUSP 30 ML UDC PO PRN (20:37)
[2019-07-11] MEDS ORDERED: MAGNESIUM HYDROXIDE SUSP 30 ML UDC PO PRN (20:37)
[2019-07-11] MEDS ORDERED: BISMUTH SUBSALICYLATE PER ML OMNICELL CHARGE PO PRN (20:37)
[2019-07-11] MEDS ORDERED: NICOTINE POLACRILEX 2 MG GUM MT PRN (20:42)
--- NOTE | 2019-07-11 20:47 | Emergency Department Note ---
Entered by Francesca Cam acting as a scribe for Sukhjinder Acevedo MD ED Provider Note CHIEF COMPLAINT: Mental health evaluation HISTORY OF PRESENT ILLNESS: The patient is a 39 year old male who presents to the Emergency Room with co mplaints of needing a mental health evaluation. He is accompanied by staff from [facility], where he resides and was referred to the ED from [facility] A [facility] assessment noted the patient has been experiencing visual hallucinations, increased paranoia, not sleeping and has not been medication compliant for the past 5 days. He has not slept in the past 2 days. The patient states he has never experienced symptoms to this extent in the past. He denies any SI or HI. He does admit to a history of issues with sleeping. The patient has been treated here on as well as at the [facility] for inpatient psychiatric care in the past. He denies any recent changes in medications. He states "the things I'm seeing are happening". He denies any recent falls or trauma. Pt denies LOC, headache, fevers, chills, diaphoresis, visual changes, neck pain, chest pain, breathing difficulties, nausea, vomiting, abdominal pain, back pain, melena, hematochezia, urinary symptoms, numbness, weakness, lymphadenopathy, rash, or other complaints. REVIEW OF SYSTEMS: See HPI for pertinent positives and negatives. A total of ten systems were reviewed and were otherwise negative. PMHx/PSHx: Anxiety. Depression. PTSD. Polysubstance abuse. Anti-social personality disorder. SOCIAL HISTORY: Patient lives in a half-way PHYSICAL EXAM: GENERAL: Awake, alert, well-appearing, in no distress HENT: Normocephalic, atraumatic. Oropharynx unremarkable. EYES: PERRL. Normal conjunctiva. Sclera non-icteric. NECK: Inspection normal. Non-tender. Supple. No nuchal rigidity. FROM. No masses. RESPIRATORY: Clear to auscultation. No wheezes. No rales. Normal respiratory effort. CARDIAC: Normal rate. Normal rhythm. No murmurs. No rubs. Extremities warm and well perfused. Pulses equal. No JVD. GI: Soft, non-distended. No tenderness to palpation. No rebound or guarding. No masses. RECTAL: Deferred. MUSCULOSKELETAL: Atraumatic. Chest examination reveals no tenderness. The back is symmetrical on inspection without obvious abnormality. There is no CVA tenderness to palpation. No joint edema. UPPER EXTREMITIES: Some bruising and track-larson on both upper extremities. LOWER EXTREMITIES: Calves are equal size bilaterally and non-tender. No edema. No discoloration. NEURO: Normal sensorium. No sensory or motor deficits noted. SKIN: No rash or jaundice noted. PSYCHIATRIC: Auditory and visual hallucinations. Paranoid, depressed mood, flat affect, no SI or HI. EMERGENCY DEPARTMENT COURSE: 1628: I spoke with our Psychiatric [facility] Sales Executive about the patient. 1629: Past medical records reviewed. The patient was evaluated in room B7, and a complete history and physical examination were performed. 1921: Psychiatric Case Management is in with the patient to discuss inpatient treatment. 1944: Rhys our Psychiatric [facility] Sales Executive is placing a referral to [facility]. 2044: [facility] has accepted the patient. He will be further evaluated. 2099: I reevaluated the patient. He is feeling better. I discussed his results and my recommendation he undergo treatment by [facility] and he is agreeable with the plan. He did request Tylenol for some dental pain. MEDICAL DECISION MAKING: Prior records/ancillary studies reviewed. Triage Nursing notes reviewed and agree them. 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 The patient's history was concerning for possible psychiatric disturbance. Differential diagnosis: Etiologies such as mood disorder, infection, hypoglycemia, electrolyte abnormalities, cardiac sources, intracerebral event, toxicologic, neurologic, as well as others were entertained. Physical examination: The physical examination was performed as above and was completely benign. No emergent medical pathologies were noted. ER treatment provided: The patient was given his home medications for the evening that he was paranoid about receiving at [employer]. On reassessment the patient felt better. Diagnostic interpretation by me: The labs revealed an unremarkable CBC and chemistry panel. Urine drug screen was abnormal. Tylenol and salicylate levels negative. Imaging studies: Deferred Consultation: Consultation was placed with mental health. The patient was evaluated by Jono Lyles in the emergency department and accepted for inpatient mental health treatment. IMPRESSION: Mood disorder. Paranoia. Auditory hallucinations. PLAN: Further evaluation by [facility] Smith The scribe's documentation has been prepared under my direction and personally reviewed by me in its entirety. I confirm that the note above accurately reflects all work, treatment, procedures, and medical decision making performed by me. Impression & Plan Mood disorder, Paranoia, Auditory hallucinations Past Med/Surg History Surgical History History of cholecystectomy (Chronic) Social History Preferred Language: Kyrgyz Feels Safe at Home: Yes Smoking Status: Never smoker Tobacco Type: cigarettes ; Results & Data Vital Signs Vital Signs - 24 hr 07/11/19 16:02 07/11/19 18:00 Temperature 36.9 C Temperature Source Oral Pulse Rate 90 Pulse Rate [Right Finger] 94 H Pulse Rhythm [Right Finger] Regular Pulse Strength [Right Finger] Normal Respiratory Rate 18 Respiratory Effort / Characteristics Non-Labored Spontaneous Respiratory Depth Normal Normal Blood Pressure 128/87 Blood Pressure [Right Arm] 111/80 Blood Pressure Mean 100 Blood Pressure Mean [Right Arm] 90 Blood Pressure Position [Right Arm] Lying Pulse Oximetry 97 97 Oxygen Delivery Method Room Air Room Air Sepsis Recent Fever Within 48 Hours No Sepsis Action Taken by Nursing No Action Required Home Medications Current Medication List: was personally reviewed by me Laboratory Data Attestation: I reviewed the patient's lab results. Result diagrams: 07/11/19 16:53 07/11/19 16:53 Lab Results 07/11/19 07/11/19 07/11/19 Range/Units 16:53 16:53 16:53 WBC 8.60 (4.8-10.8) K/uL RBC 4.70 (4.7-6.1) M/uL Hgb 14.6 (14.0-18.0) g/dL Hct 43.3 (42-52) % MCV 92.1 (80-100) fL MCH 31.1 (25-34) pg MCHC 33.7 (32-36) g/dL RDW Std Deviation 46.2 (36.4-46.3) fL RDW Coeff of [place]shine 13.8 (11.5-14.5) % Plt Count 283 (130-400) K/uL MPV 8.9 (7.4-10.4) fL Immature Gran % (Auto) 1.0 % Neut % (Auto) 44.4 % Lymph % (Auto) 42.2 % [place] % (Auto) 10.5 % Eos % (Auto) 1.2 % Baso % (Auto) 0.7 % Immature Gran # (Auto) 0.09 H (0.00-0.02) K/uL Neut # (Auto) 3.82 (1.4-6.5) K/uL Lymph # (Auto) 3.63 H (1.2-3.4) K/uL [place] # (Auto) 0.90 H (0.11-0.59) K/uL Eos # (Auto) 0.10 (0-0.5) K/uL Baso # (Auto) 0.06 (0-0.2) K/uL Sodium 139 (136-145) mmol/L Potassium 4.0 (3.5-5.1) mmol/L Chloride 110 H (98-107) mmol/L Carbon Dioxide 26 (21-32) mmol/L Anion Gap 3.0 (3-11) BUN 11 (7-18) mg/dl Creatinine 1.15 (0.6-1.4) mg/dl Est Cr Clr Drug Dosing 93.0 ml/min Est GFR ( Amer) 93.0 Est GFR (Non-Af Amer) 80.3 BUN/Creatinine Ratio 9.3 L (10-20) Glucose 154 H (70-99) mg/dl Calcium 9.3 (8.5-10.1) mg/dl Total Bilirubin 0.2 (0.2-1) mg/dl AST 25 (15-37) U/L ALT 72 (12-78) U/L Alkaline Phosphatase 79 (45-117) U/L Total Protein 7.7 (6.4-8.2) gm/dl Albumin 3.5 (3.4-5.0) gm/dl Globulin 4.2 H (2.5-4.0) gm/dl Albumin/Globulin Ratio 0.8 L (0.9-2) TSH 3.620 (0.300-4.500) uIu/ml Urine Color Urine Appearance (Clear) Urine pH (4.5-7.5) Ur Specific [place] (1.000-1.030) Urine Protein (Negative) Urine Glucose (UA) (Negative) Urine Ketones (Negative) Urine Blood (Negative) Urine Nitrite (Negative) Urine Bilirubin (Negative) Urine Urobilinogen (Negative) Ur Leukocyte Esterase (Negative) Urine WBC (Auto) (0-5) /hpf Urine RBC (Auto) (0-4) /hpf U Hyaline Cast (Auto) (0-5) /lpf U Epithel Cells (Auto) (0-5) /lpf Urine Bacteria (Auto) (Negative) Nasal Screen MRSA (PCR) (Negative) Salicylates 1.7 L (2.8-20) mg/dl Urine Opiates Screen (Neg) Ur Methadone, Qual (Neg) Acetaminophen < 2 L (10-30) ug/ml Urine Barbiturates (Neg) Ur Phencyclidine (PCP) (Neg) U Amphetamin/Meth Scrn (Neg) MDMA (Ecstasy) Screen (Neg) U Benzodiazepines Scrn (Neg) Ur Cocaine Metabolite (Neg) U Marijuana (THC) Screen (Neg) Ethyl Alcohol mg/dL (0-3) mg/dl 07/11/19 07/11/19 07/11/19 Range/Units 16:53 18:15 18:15 WBC (4.8-10.8) K/uL RBC (4.7-6.1) M/uL Hgb (14.0-18.0) g/dL Hct (42-52) % MCV (80-100) fL MCH (25-34) pg MCHC (32-36) g/dL RDW Std Deviation (36.4-46.3) fL RDW Coeff of Sunshine (11.5-14.5) % Plt Count (130-400) K/uL MPV (7.4-10.4) fL Immature Gran % (Auto) % Neut % (Auto) % Lymph % (Auto) % [place] % (Auto) % Eos % (Auto) % Baso % (Auto) % Immature Gran # (Auto) (0.00-0.02) K/uL Neut # (Auto) (1.4-6.5) K/uL Lymph # (Auto) (1.2-3.4) K/uL [place] # (Auto) (0.11-0.59) K/uL Eos # (Auto) (0-0.5) K/uL Baso # (Auto) (0-0.2) K/uL Sodium (136-145) mmol/L Potassium (3.5-5.1) mmol/L Chloride (98-107) mmol/L Carbon Dioxide (21-32) mmol/L Anion Gap (3-11) BUN (7-18) mg/dl Creatinine (0.6-1.4) mg/dl Est Cr Clr Drug Dosing ml/min Est GFR ( Amer) Est GFR (Non-Af Amer) BUN/Creatinine Ratio (10-20) Glucose (70-99) mg/dl Calcium (8.5-10.1) mg/dl Total Bilirubin (0.2-1) mg/dl AST (15-37) U/L ALT (12-78) U/L Alkaline Phosphatase (45-117) U/L Total Protein (6.4-8.2) gm/dl Albumin (3.4-5.0) gm/dl Globulin (2.5-4.0) gm/dl Albumin/Globulin Ratio (0.9-2) TSH (0.300-4.500) uIu/ml Urine Color Yellow Urine Appearance Clear (Clear) Urine pH 6.0 (4.5-7.5) Ur Specific [place] 1.020 (1.000-1.030) Urine Protein Negative (Negative) Urine Glucose (UA) Negative (Negative) Urine Ketones Negative (Negative) Urine Blood Trace H (Negative) Urine Nitrite Negative (Negative) Urine Bilirubin Negative (Negative) Urine Urobilinogen Negative (Negative) Ur Leukocyte Esterase Negative (Negative) Urine WBC (Auto) 1-5 (0-5) /hpf Urine RBC (Auto) 0-4 (0-4) /hpf U Hyaline Cast (Auto) 0 (0-5) /lpf U Epithel Cells (Auto) 0-5 (0-5) /lpf Urine Bacteria (Auto) Negative (Negative) Nasal Screen MRSA (PCR) (Negative) Salicylates (2.8-20) mg/dl Urine Opiates Screen Neg (Neg) Ur Methadone, Qual Neg (Neg) Acetaminophen (10-30) ug/ml Urine Barbiturates Neg (Neg) Ur Phencyclidine (PCP) Neg (Neg) U Amphetamin/Meth Scrn Pos H (Neg) MDMA (Ecstasy) Screen Pos H (Neg) U Benzodiazepines Scrn Neg (Neg) Ur Cocaine Metabolite Neg (Neg) U Marijuana (THC) Screen Pos H (Neg) Ethyl Alcohol mg/dL < 3.0 (0-3) mg/dl 07/11/19 Range/Units 19:45 WBC (4.8-10.8) K/uL RBC (4.7-6.1) M/uL Hgb (14.0-18.0) g/dL Hct (42-52) % MCV (80-100) fL MCH (25-34) pg MCHC (32-36) g/dL RDW Std Deviation (36.4-46.3) fL RDW Coeff of Sunshine (11.5-14.5) % Plt Count (130-400) K/uL MPV (7.4-10.4) fL Immature Gran % (Auto) % Neut % (Auto) % Lymph % (Auto) % [place] % (Auto) % Eos % (Auto) % Baso % (Auto) % Immature Gran # (Auto) (0.00-0.02) K/uL Neut # (Auto) (1.4-6.5) K/uL Lymph # (Auto) (1.2-3.4) K/uL [place] # (Auto) (0.11-0.59) K/uL Eos # (Auto) (0-0.5) K/uL Baso # (Auto) (0-0.2) K/uL Sodium (136-145) mmol/L Potassium (3.5-5.1) mmol/L Chloride (98-107) mmol/L Carbon Dioxide (21-32) mmol/L Anion Gap (3-11) BUN (7-18) mg/dl Creatinine (0.6-1.4) mg/dl Est Cr Clr Drug Dosing ml/min Est GFR ( Amer) Est GFR (Non-Af Amer) BUN/Creatinine Ratio (10-20) Glucose (70-99) mg/dl Calcium (8.5-10.1) mg/dl Total Bilirubin (0.2-1) mg/dl AST (15-37) U/L ALT (12-78) U/L Alkaline Phosphatase (45-117) U/L Total Protein (6.4-8.2) gm/dl Albumin (3.4-5.0) gm/dl Globulin (2.5-4.0) gm/dl Albumin/Globulin Ratio (0.9-2) TSH (0.300-4.500) uIu/ml Urine Color Urine Appearance (Clear) Urine pH (4.5-7.5) Ur Specific [place] (1.000-1.030) Urine Protein (Negative) Urine Glucose (UA) (Negative) Urine Ketones (Negative) Urine Blood (Negative) Urine Nitrite (Negative) Urine Bilirubin (Negative) Urine Urobilinogen (Negative) Ur Leukocyte Esterase (Negative) Urine WBC (Auto) (0-5) /hpf Urine RBC (Auto) (0-4) /hpf U Hyaline Cast (Auto) (0-5) /lpf U Epithel Cells (Auto) (0-5) /lpf Urine Bacteria (Auto) (Negative) Nasal Screen MRSA (PCR) Negative (Negative) Salicylates (2.8-20) mg/dl Urine Opiates Screen (Neg) Ur Methadone, Qual (Neg) Acetaminophen (10-30) ug/ml Urine Barbiturates (Neg) Ur Phencyclidine (PCP) (Neg) U Amphetamin/Meth Scrn (Neg) MDMA (Ecstasy) Screen (Neg) U Benzodiazepines Scrn (Neg) Ur Cocaine Metabolite (Neg) U Marijuana (THC) Screen (Neg) Ethyl Alcohol mg/dL (0-3) mg/dl Administered Medications Discontinued Medications Amitriptyline HCl (Elavil) 200 mg PO NOW STA Stop: 07/11/19 16:41 Last Admin: 07/11/19 17:26 Dose: 200 mg Documented by: [id number] Aripiprazole (Abilify) 10 mg PO NOW STA Stop: 07/11/19 16:41 Last Admin: 07/11/19 17:26 Dose: 10 mg Documented by: [id number] Lisinopril (Zestril) 5 mg PO NOW ONE Stop: 07/11/19 16:41 Last Admin: 07/11/19 17:26 Dose: 5 mg Documented by: [id number] Metformin HCl (Glucophage) 1,000 mg PO NOW STA Stop: 07/11/19 16:41 Last Admin: 07/11/19 17:26 Dose: 1,000 mg Documented by: [id number] Prazosin HCl (Prazosin Hcl) 4 mg PO NOW STA Stop: 07/11/19 16:41 Last Admin: 07/11/19 17:25 Dose: 4 mg Documented by: [id number] Topiramate (Topamax) 50 mg PO NOW STA Stop: 07/11/19 16:41 Last Admin: 07/11/19 17:25 Dose: 50 mg Documented by: [id number] Blood Pressure Blood Pressure Findings: Normal blood pressure Blood Pressure Disposition: did not require urgent referral Discharge Plan Visit Data Chief Complaint: Mental Health Evaluation Stated Complaint: INCREASED PARANOIA, NO SLEEP ED Provider: Sukhjinder Acevedo Discharge Problem: Mood disorder, Paranoia, Auditory hallucinations Patient Disposition: Transfer Behavioral Health Fac Discharge Instructions Interventions: ED Discharge Assessment Last Done: 07/11/19 21:05 The scribe's documentation has been prepared under my direction and personally reviewed by me in its entirety. I confirm that the note above accurately reflects all work, treatment, procedures, and medical decision making performed by me.
[2019-07-11] MEDS ORDERED: ACETAMINOPHEN 500 MG TAB PO STA (21:10)
[2019-07-11] MEDS: NICOTINE 14 MG/24 HR PATCH TD SCH (21:56)
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
[2019-07-12] MEDS ORDERED: AMITRIPTYLINE HCL 25 MG TAB PO PRN (14:12)
[2019-07-12] MEDS ORDERED: ARIPiprazole 10 MG TAB PO SCH (14:30)
[2019-07-12] MEDS: lisinopriL 5 MG TAB PO SCH (15:07)
[2019-07-12] MEDS: METFORMIN HCL 500 MG TAB PO SCH (17:23)
[2019-07-12] MEDS: ACETAMINOPHEN 325 MG TAB PO PRN (20:40)
[2019-07-12] MEDS: ARIPiprazole 10 MG TAB PO SCH (21:17)
[2019-07-12] MEDS: AMITRIPTYLINE HCL 50 MG TAB PO SCH (21:17)
[2019-07-12] MEDS: TOPIRAMATE 50 MG TAB PO SCH (21:18)
[2019-07-12] MEDS: PRAZOSIN HCL 1 MG CAP PO SCH (21:18)
[2019-07-13] MEDS: METFORMIN HCL 500 MG TAB PO SCH ×2 (09:30→17:24)
[2019-07-13] MEDS: NICOTINE 14 MG/24 HR PATCH TD SCH (09:31)
[2019-07-13] MEDS: lisinopriL 5 MG TAB PO SCH (09:31)
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
[2019-07-13] MEDS: ACETAMINOPHEN 325 MG TAB PO PRN ×2 (15:05→19:53)
[2019-07-13] MEDS: ARIPiprazole 10 MG TAB PO SCH (21:08)
[2019-07-13] MEDS: AMITRIPTYLINE HCL 50 MG TAB PO SCH (21:08)
[2019-07-13] MEDS: IBUPROFEN 800 MG TAB PO PRN (21:08)
[2019-07-13] MEDS: PRAZOSIN HCL 1 MG CAP PO SCH (21:08)
[2019-07-13] MEDS: TOPIRAMATE 50 MG TAB PO SCH (21:08)
[2019-07-14 07:42] LABS: Glucose Fasting 112 mg/dl (70-99)
[2019-07-14 07:48] LABS: Cholesterol 193 mg/dl (0-200); HDL Cholesterol 35 mg/dl; Triglycerides 427 mg/dl (0-150)
[2019-07-14 07:49] LABS: Chol HDL Ratio 6
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
[2019-07-14] MEDS: METFORMIN HCL 500 MG TAB PO SCH ×2 (08:48→19:11)
[2019-07-14] MEDS: NICOTINE 14 MG/24 HR PATCH TD SCH (08:48)
[2019-07-14] MEDS: lisinopriL 5 MG TAB PO SCH (08:48)
[2019-07-14] MEDS: IBUPROFEN 800 MG TAB PO PRN (19:21)
[2019-07-14] MEDS: AMITRIPTYLINE HCL 50 MG TAB PO SCH (21:47)
[2019-07-14] MEDS: ARIPiprazole 10 MG TAB PO SCH (21:47)
[2019-07-14] MEDS: TOPIRAMATE 50 MG TAB PO SCH (21:48)
[2019-07-14] MEDS: PRAZOSIN HCL 1 MG CAP PO SCH (21:49)
[2019-07-15] MEDS: lisinopriL 5 MG TAB PO SCH (08:33)
[2019-07-15] MEDS: NICOTINE 14 MG/24 HR PATCH TD SCH (08:33)
[2019-07-15] MEDS: METFORMIN HCL 500 MG TAB PO SCH ×2 (08:33→17:20)
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
[2019-07-15] MEDS: ARIPiprazole 10 MG TAB PO SCH (21:31)
[2019-07-15] MEDS: PRAZOSIN HCL 1 MG CAP PO SCH (21:32)
[2019-07-15] MEDS: AMITRIPTYLINE HCL 50 MG TAB PO SCH (21:32)
[2019-07-15] MEDS: TOPIRAMATE 50 MG TAB PO SCH (21:32)
[2019-07-16] MEDS: NICOTINE 14 MG/24 HR PATCH TD SCH (09:14)
[2019-07-16] MEDS: lisinopriL 5 MG TAB PO SCH (09:15)
[2019-07-16] MEDS: METFORMIN HCL 500 MG TAB PO SCH ×2 (09:15→17:30)
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
[2019-07-16 15:09] LABS: Amphetamine Urine, Confirm 13500 NG/ML (CUTOFF=250); Marijuana Quant, GCMS Urine 108 NG/ML (CUTOFF=5); Methamphetamine, Ur Confirm 105000 NG/ML (CUTOFF=250)
[2019-07-16] MEDS: ARIPiprazole 10 MG TAB PO SCH (21:23)
[2019-07-16] MEDS: PRAZOSIN HCL 1 MG CAP PO SCH (21:23)
[2019-07-16] MEDS: TOPIRAMATE 50 MG TAB PO SCH (21:24)
[2019-07-16] MEDS: AMITRIPTYLINE HCL 50 MG TAB PO SCH (21:24)
[2019-07-17] MEDS: METFORMIN HCL 500 MG TAB PO SCH ×2 (09:06→17:45)
[2019-07-17] MEDS: lisinopriL 5 MG TAB PO SCH (09:06)
[2019-07-17] MEDS: NICOTINE 14 MG/24 HR PATCH TD SCH (09:07)
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
[2019-07-17] MEDS: IBUPROFEN 800 MG TAB PO PRN (13:14)
[2019-07-17] MEDS: AMITRIPTYLINE HCL 50 MG TAB PO SCH (21:18)
[2019-07-17] MEDS: ARIPiprazole 10 MG TAB PO SCH (21:18)
[2019-07-17] MEDS: PRAZOSIN HCL 1 MG CAP PO SCH (21:18)
[2019-07-17] MEDS: TOPIRAMATE 50 MG TAB PO SCH (21:19)
[2019-07-18] MEDS: METFORMIN HCL 500 MG TAB PO SCH ×2 (09:19→17:45)
[2019-07-18] MEDS: lisinopriL 5 MG TAB PO SCH (09:20)
[2019-07-18] MEDS: NICOTINE 14 MG/24 HR PATCH TD SCH (09:20)
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
[2019-07-18] MEDS: ARIPiprazole 10 MG TAB PO SCH (21:57)
[2019-07-18] MEDS: PRAZOSIN HCL 1 MG CAP PO SCH (21:58)
[2019-07-18] MEDS: AMITRIPTYLINE HCL 50 MG TAB PO SCH (21:59)
[2019-07-18] MEDS: TOPIRAMATE 50 MG TAB PO SCH (22:00)
[2019-07-19] MEDS: lisinopriL 5 MG TAB PO SCH (08:39)
[2019-07-19] MEDS: METFORMIN HCL 500 MG TAB PO SCH ×2 (08:39→17:39)
[2019-07-19] MEDS: NICOTINE 14 MG/24 HR PATCH TD SCH (08:42)
[2019-07-19] MEDS: IBUPROFEN 800 MG TAB PO PRN (11:38)
[2019-07-19] MEDS: CHLORPROMAZINE HCL 25 MG TABLET PO PRN ×2 (13:01→21:24)
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
[2019-07-19] MEDS: BuPROPion SR 100 MG TABCR PO SCH (15:04)
[2019-07-19] MEDS: haloperidoL 5 MG TAB PO PRN (17:40)
[2019-07-19] MEDS: AMITRIPTYLINE HCL 50 MG TAB PO SCH (21:23)
[2019-07-19] MEDS: ARIPiprazole 10 MG TAB PO SCH (21:23)
[2019-07-19] MEDS: PRAZOSIN HCL 1 MG CAP PO SCH (21:24)
[2019-07-19] MEDS: TOPIRAMATE 50 MG TAB PO SCH (21:24)
[2019-07-20] MEDS: METFORMIN HCL 500 MG TAB PO SCH ×2 (08:35→17:15)
[2019-07-20] MEDS: lisinopriL 5 MG TAB PO SCH (08:36)
[2019-07-20] MEDS: NICOTINE 14 MG/24 HR PATCH TD SCH (08:36)
[2019-07-20] MEDS: BuPROPion SR 100 MG TABCR PO SCH (08:36)
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
[2019-07-20] MEDS: CHLORPROMAZINE HCL 25 MG TABLET PO PRN (16:30)
[2019-07-20] MEDS: haloperidoL 5 MG TAB PO PRN (19:46)
[2019-07-20] MEDS: ARIPiprazole 10 MG TAB PO SCH (21:15)
[2019-07-20] MEDS: AMITRIPTYLINE HCL 50 MG TAB PO SCH (21:15)
[2019-07-20] MEDS: PRAZOSIN HCL 1 MG CAP PO SCH (21:16)
[2019-07-20] MEDS: TOPIRAMATE 50 MG TAB PO SCH (21:18)
[2019-07-21] MEDS: METFORMIN HCL 500 MG TAB PO SCH ×2 (08:32→17:40)
[2019-07-21] MEDS: BuPROPion SR 100 MG TABCR PO SCH (08:33)
[2019-07-21] MEDS: NICOTINE 14 MG/24 HR PATCH TD SCH (08:33)
[2019-07-21] MEDS: lisinopriL 5 MG TAB PO SCH (08:33)
[2019-07-21] MEDS: ACETAMINOPHEN 325 MG TAB PO PRN (09:33)
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
[2019-07-21] MEDS: GABAPENTIN 100 MG CAP PO SCH ×2 (13:37→21:38)
[2019-07-21] MEDS: CHLORPROMAZINE HCL 25 MG TABLET PO PRN (21:37)
[2019-07-21] MEDS: ARIPiprazole 10 MG TAB PO SCH (21:38)
[2019-07-21] MEDS: AMITRIPTYLINE HCL 50 MG TAB PO SCH (21:39)
[2019-07-21] MEDS: PRAZOSIN HCL 1 MG CAP PO SCH (21:40)
[2019-07-21] MEDS: TOPIRAMATE 50 MG TAB PO SCH (21:41)
[2019-07-22] MEDS: METFORMIN HCL 500 MG TAB PO SCH ×2 (08:51→17:22)
[2019-07-22] MEDS: GABAPENTIN 100 MG CAP PO SCH ×3 (08:51→21:58)
[2019-07-22] MEDS: NICOTINE 14 MG/24 HR PATCH TD SCH (08:52)
[2019-07-22] MEDS: lisinopriL 5 MG TAB PO SCH (08:53)
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
[2019-07-22] MEDS: CHLORPROMAZINE HCL 25 MG TABLET PO PRN (20:03)
[2019-07-22] MEDS: ARIPiprazole 10 MG TAB PO SCH (21:59)
[2019-07-22] MEDS: AMITRIPTYLINE HCL 50 MG TAB PO SCH (21:59)
[2019-07-22] MEDS: TOPIRAMATE 50 MG TAB PO SCH (22:00)
[2019-07-22] MEDS: PRAZOSIN HCL 1 MG CAP PO SCH (22:00)
[2019-07-23] MEDS: METFORMIN HCL 500 MG TAB PO SCH (08:58)
[2019-07-23] MEDS: GABAPENTIN 100 MG CAP PO SCH (08:59)
[2019-07-23] MEDS: lisinopriL 5 MG TAB PO SCH (08:59)
[2019-07-23] MEDS: NICOTINE 14 MG/24 HR PATCH TD SCH (08:59)
--- NOTE | 2019-07-23 09:23 | Discharge Summary ---
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 Wellbutrin -TCA level drawn and pending -Patient encouraged to take a more active role in discharge preparations 07/21 -Suggested meeting Monday or Monday with pillowcase folder to help with disposition. He was agreeable. States he would be willing to consider [facility] (6) Methamphetamine abuse: 07/12/19 -The patient freely acknowledges his abuse of methamphetamine, as well as episodic use of marijuana. His tox screen was positive for MDMA, but the patient says that he does not use ecstasy (nor does he use bupropion) and cannot explain the positive results. -The patient's insistence is that he uses methamphetamines with impunity and that it does not in any way affect his psychiatric condition. He will not consider that his paranoia may be "filled" by his methamphetamine use. The fact is that the patient remains floridly psychotic and is no longer under the influence of methamphetamine. -As the patient improves, we will continue to help the patient develop insight into the risks associated with abusing mood altering chemical substances, particularly within the context of his particular psychiatric problems. 07/19 -Patient educated again regarding potential consequences of methamphetamine abuse which sounds long-standing and he was advised that this may contribute to his paranoia and anxiety longitudinally and cessation was strongly encouraged (7) Cannabis abuse: Mental Health & Subst Abuse Tx Psychiatrist Name of Psychiatrist: Linda Pascal PA-C Psychiatrist's Date of Appointment with Psychiatrist: 07/31/19 Time of Appointment with Psychiatrist: 10am Psychiatric Appointment Comment: [id number] [facility], [place] [address] Therapist Name of Therapist: Shantell Snyder Therapist's Date of Therapist Appointment: 08/01/19 Time of Therapist Appointment: 2:00 pm Therapy Appointment Comment: [address] Territory Manager General Sales Name of Territory Manager General Sales: April Davis BSU Phone Number for Territory Manager General Sales: [phone] Case Management Appointment Comment: April is referring you to a D&A intensive casemanager Post Discharge Appointments Primary Care Physician Name Of Family Doctor: Dr. Loyola Drasco [facility] Primary Care Date of Appointment with PCP: 07/31/19 Time of Appointment with PCP: right after appt with Valeria Gonzales Provider Appointment Comment: [address] [facility] [id number] Smoking Cessation Counseling Tobacco Cessation Medication Prescribed at Discharge: Offered & Pt Refused Contact Information Discharge Discharge Address: homeless Discharge Plan Discharge Items Patient Disposition: Home - Self-Care Reason For Visit: DEPRESSION Discharge Diagnosis: Mood disorder not otherwise specified Psychosis not otherwise specified Methamphetamine use disorder Cannabis use disorder Activity: Per Instructions section Non-emergency contact: Primary Care Provider, Psychiatrist, Therapist and Spray Maker Call non-emergency contact if: you have any medication questions and your symptoms worsen Follow-up/Referrals: Olivia Amin MD [Primary Care Provider] - Diet: Carb Consistent or DM2 Addtl Attending Provider Instructions: SPECIAL CARE INSTRUCTIONS: 1. Follow through with your scheduled aftercare appointments. If unable to keep an appointment, please call to reschedule. 2. Take your medication only as prescribed. Medication should not be changed or stopped without the approval of your doctor. In the event of worsening symptoms or concerns about side effects, contact your doctor immediately. 3. Utilize new healthy coping skills, anger management skills, and stress management skills learned during your hospitalization. Journal feelings and process them with a support person. Identify stressors or situations that may result in relapse, deterioration or inappropriate behaviors and develop a plan to deal with those issues. 4. If your coping skills are ineffective and you are in crisis, contact your outpatient providers for direction. If unable to reach your providers, please call the CAN HELP LINE AT or go to the closest Emergency Room. 5. Avoid alcohol and un-prescribed drugs. Follow up with substance abuse treatment at [facility] and Peer support 6. You have been provided with the Mental Health Advance Directives Pamphlet for your review. AFTERCARE APPOINTMENTS: * Please call your insurance company prior to your scheduled appointment to confirm your aftercare providers are covered. Take your insurance information to your appointments. WHO TO CALL AND WHEN: Medical Emergencies: For questions or emergencies related to your hospital stay, please contact the Inpatient Behavioral Health Unit at [phone]. A bar staff is on-call 13/03 for the Behavioral Health Unit for emergencies At any time you feel your situation is an emergency, you may also call 911 immediately. Your Doctors Instructions noted above were prepared by provider Purvi Sanchez MD. Pending Studies at Discharge: Yes (amitriptyline and nortriptyline levels) Stand-Alone Forms: My [facility], Smoking Cessation, Suicide Prevention Resources Medications and DC Order Prescriptions: New gabapentin 100 mg Capsule 100 mg PO TID Qty: 30 RF: 0 Continued metformin 1,000 mg tablet 1,000 mg PO BID RF: 0 lisinopril 5 mg tablet 5 mg PO DAILY RF: 0 prazosin 2 mg capsule 4 mg PO HS RF: 0 topiramate 50 mg tablet 50 mg PO HS RF: 0 Changed amitriptyline 100 mg tablet 150 mg PO HS Qty: 0 RF: 0 aripiprazole 10 mg tablet 20 mg PO HS Qty: 0 RF: 0 Discontinued Trintellix 10 mg tablet 10 mg PO HS RF: 0 Discharge Orders: Discharge Order (Routine); Ordered 07/23/19 Ordered By: Purvi Sanchez Admission Data Admit Date/Time: 07/11/19 20:37 Attending Provider: Purvi Sanchez Admit Provider: Purvi Sanchez Primary Care Provider: Olivia Amin Other Interventions: Discharge Summary Assessment (RN) Last Done: 07/23/19 09:29 PSY Interdisciplinary Discharge Planning Last Done: 07/23/19 11:29 Coding Level of Care Code 60402 D/C day mgmt > 30 min Diagnoses Suicidal ideation R45.851 Psychosis F29 Anxiety F41.9 PTSD (post-traumatic stress disorder) F43.10 Mood disorder F39 Methamphetamine abuse F15.10 Cannabis abuse F12.10
[2019-07-23 12:28] LABS: Ami + Nortriptyline 136
[2019-07-23 12:30] LABS: Nortriptyline 48
== END 2019-07-23 12:00 | disposition home or self-care (01) | DRG 885 ==
LOC: ED 15:49 → SUATTDRO 20:37 → 3S 20:37

== ENCOUNTER 2019-09-19 13:12 | Inpatient (IN) ==
[2019-09-19 13:51] LABS: Appearance Urine Clear (Clear); Blood Urine Negative (Negative); Color Urine Dark Yellow; Glucose Urine UA Negative (Negative); Ketones Urine 1+ (Negative); Leukocyte Esterase Urine Negative (Negative); Nitrite Urine Negative (Negative); Protein Urine Negative (Negative); Specific Gravity Urine 1.032 (1.000-1.030); Urobilinogen Urine Negative (Negative); pH Urine 5.5 (4.5-7.5)
[2019-09-19 13:55] LABS: Bilirubin Urine Negative (Negative); Ictotest Urine Negative (Negative)
[2019-09-19 14:12] LABS: Amphetamines+Metham, Urine Pos (Neg); Barbiturates, Urine Neg (Neg); Benzodiazepine, Urine Neg (Neg); Cocaine, Urine Neg (Neg); MDMA (Ecstacy), Urine Pos (Neg); Methadone, Urine Pos (Neg); Opiate, Urine Neg (Neg); Phencyclidine, Urine Neg (Neg)
[2019-09-19 14:18] LABS: Basophils # (auto) 0.02 K/uL (0-0.2); Basophils % (auto) 0.2 %; Eosinophils # (auto) 0.02 K/uL (0-0.5); Eosinophils % (auto) 0.2 %; Hemoglobin 14.4 g/dL (14.0-18.0); Immature Granulocytes # (auto) 0.02 K/uL (0.00-0.02); Immature Granulocytes % (auto) 0.2 %; Lymphocytes # (auto) 1.86 K/uL (1.2-3.4); Lymphocytes % (auto) 22.5 %; Mean Corpuscular Hemoglobin 30.8 pg (25-34); Mean Corpuscular Hgb Conc 34.3 g/dL (32-36); Mean Corpuscular Volume 89.9 fL (80-100); Mean Platelet Volume 9.4 fL (7.4-10.4); Monocytes # (auto) 0.68 K/uL (0.11-0.59); Monocytes % (auto) 8.2 %; Neutrophils # (auto) 5.66 K/uL (1.4-6.5); Neutrophils % (auto) 68.7 %; Platelet Count 268 K/uL (130-400); RDW Coefficient of Variation 13.2 % (11.5-14.5); RDW Standard Deviation 42.8 fL (36.4-46.3); Red Blood Count 4.67 M/uL (4.7-6.1); White Blood Count 8.26 K/uL (4.8-10.8)
[2019-09-19 14:47] LABS: Albumin Level 3.7 gm/dl (3.4-5.0); BUN Creatinine Ratio 11.9 (10-20); Calcium 9.4 mg/dl (8.5-10.1); Creatinine Clr Calc Pharmacy 101.3 ml/min; Est GFR (African American) 115.7; Est GFR (Non-African American) 99.9; Potassium 3.7 mmol/L (3.5-5.1)
[2019-09-19 14:48] LABS: Acetaminophen < 2 ug/ml (10-30); Salicylate < 1.7 mg/dl (2.8-20)
[2019-09-19 14:57] LABS: Albumin Globulin Ratio 0.9 (0.9-2); Bilirubin,Total 0.4 mg/dl (0.2-1); Globulin 4.3 gm/dl (2.5-4.0); Thyroid Stimulating Hormone 0.897 uIu/ml (0.300-4.500)
--- NOTE | 2019-09-19 16:31 | Emergency Department Note ---
Entered by Tyra Coffey acting as a scribe for History of Present Illness General Chief complaint: Mental Health Evaluation Time Seen by Provider: 09/19/19 13:20 Source: patient and other (fiance) History of Present Illness Onset (ago): week(s) 3 Location: head Pain Consistency: + other (worsening) Quality: + other (mental health) Associated symptoms: + denies other symptoms (SI, HI) and + other (anxious, worked up, not eating, not drinking, not sleeping, paranoid) The patient is a 39 year old male who presents to the Emergency Room for a [facility] health evaluation. The patients fianc states that over the last 3 weeks the patient hasnt been taking his medications. The patient sates that this is because he ran out of medication and just didnt get it refilled. The patients fianc states that he now is extremely paranoid. She states that he has been terrified to go to work as he thinks they are out to get him. She reports that he also hasnt slept recently because he is worried that someone is coming into the house and is going to hurt him. She states that he today she decided to bring him in because he went to the bathroom with a knife. She states that he was saying that he wanted to take himself out before those people come and get him. She notes that when the police arrived, he told them he wasnt saying anything because they were in on it. The patient states that that didnt happen and she is just saying this to get him to go inpatient. He states that he isnt suicidal or homicidal. The patients fianc states that he is saying this because he is scared that they are going to call him a dirty drug addict who just needs to go to rehab. The patient sates that he doesnt think inpatient will help him because he needs validation and he doesnt feel he will get that as an inpatient. The patient complains of feeling anxious and feeling worked up. The patients fianc complains of him not eating or drinking. The patient notes that he did use meth 3 days ago. The patient denies use of alcohol. Home Medications Home Medications Medication Instructions Recorded Confirmed Type amitriptyline 100 mg PO HS 09/19/19 09/19/19 History aripiprazole [Abilify] 20 mg PO HS 09/19/19 09/19/19 History gabapentin 100 mg PO TID 09/19/19 09/19/19 History lisinopril 5 mg PO DAILY 09/19/19 09/19/19 History metformin 1,000 mg PO BID 09/19/19 09/19/19 History prazosin 4 mg PO HS 09/19/19 09/19/19 History topiramate 50 mg PO HS 09/19/19 09/19/19 History Allergies Allergy/AdvReac Type Severity Reaction Status Date / Time No Known Allergies Allergy Verified 09/19/19 15:15 Past Med/Surg History Medical History Amphetamine abuse (Chronic) Antisocial personality disorder (Chronic) Anxiety Cannabis abuse Cannabis use disorder, mild, abuse (Chronic) Chronic back pain (Chronic) Depression Elevated transaminase level Flank pain Heroin overdose Major depressive disorder, recurrent severe 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) Methamphetamine abuse MRSA carrier Nephrolithiasis (Chronic) Obesity Opiate dependence (Chronic) "on methadone therapy" Polysubstance abuse Psychosis PTSD (post-traumatic stress disorder) (Chronic) Right ureteral calculus (Acute) Suicidal ideation Thoracic back pain (Chronic) Tobacco use disorder (Chronic) Ureteral calculi Surgical History History of cholecystectomy (Chronic) Family History Other No significant family history Social History Preferred Language: Turkish Communication Ability: Effective Molecular Geneticist Required: No Beliefs That Will Affect Care: None marital status: Single Current Living Situation: Significant Other current occupational status: employed Feels Safe at Home: Yes and No Smoking Status: Current every day smoker Tobacco Type: cigarettes ; Review of Systems See HPI for pertinent positives & negatives. and A total of 10 systems reviewed and were otherwise negative Physical Exam Vital Signs Vital Signs - 24 hr 09/19/19 13:23 09/19/19 15:14 09/19/19 17:00 Temperature 37.3 C Temperature Source Oral Pulse Rate 108 H Pulse Rate [Finger] 87 86 Pulse Rhythm [Finger] Regular Regular Pulse Strength [Finger] Normal Respiratory Rate 19 17 20 Respiratory Effort / Characteristics Non-Labored Spontaneous Non-Labored Spontaneous Spontaneous Respiratory Depth Normal Normal Normal Respiratory Pattern Regular Regular Blood Pressure 147/61 H Blood Pressure [Left Arm] 141/80 H 143/85 H Blood Pressure Mean 89 Blood Pressure Mean [Left Arm] 100 104 Pulse Oximetry 96 97 96 Oxygen Delivery Method Room Air Room Air Room Air 09/19/19 17:26 Temperature Temperature Source Pulse Rate Pulse Rate [Finger] Pulse Rhythm [Finger] Pulse Strength [Finger] Respiratory Rate Respiratory Effort / Characteristics Respiratory Depth Respiratory Pattern Blood Pressure Blood Pressure [Left Arm] Blood Pressure Mean Blood Pressure Mean [Left Arm] Pulse Oximetry Oxygen Delivery Method Room Air GENERAL: Awake, alert, in no distress HENT: Normocephalic, atraumatic. EYES: Normal conjunctiva. Sclera non-icteric. RESPIRATORY: Normal respiratory effort. CARDIAC: Normal rate. Extremities warm and well perfused. NEURO: No sensory or motor deficits noted. No facial droop. SKIN: Warm and dry. No jaundice noted. PSYCH: Denies SI or HI. Endorses some paranoid thoughts about authorities. Irritable. Course Course 1328: The patient was evaluated in room [facility]. A complete history and physical exam was performed. 165: The patient was accepted to [address] [place] [address] at this time. Administered Medications Discontinued Medications Aripiprazole (Abilify) 20 mg PO ONE STA Stop: 09/19/19 16:57 Last Admin: 09/19/19 17:24 Dose: Not Given Documented by: [id number] Haloperidol (Haldol) 5 mg PO ONE STA Stop: 09/19/19 17:07 Last Admin: 09/19/19 17:15 Dose: 5 mg Documented by: [id number] Medical Decision Making Differential Diagnosis Differential diagnoses considered include mood disorder, infection, hypoglycemia, electrolyte abnormalities, cardiac sources, intracerebral event, toxicologic, neurologic, as well as others. Medical Records Attestation: I reviewed the patient's medical records. Home Medications Current Medication List: was personally reviewed by me Laboratory Data Attestation: I reviewed the patient's lab results. Result diagrams: 09/19/19 14:03 09/19/19 14:03 Lab Results 09/19/19 09/19/19 09/19/19 Range/Units 13:30 13:30 14:03 WBC 8.26 (4.8-10.8) K/uL RBC 4.67 L (4.7-6.1) M/uL Hgb 14.4 (14.0-18.0) g/dL Hct 42.0 (42-52) % MCV 89.9 (80-100) fL MCH 30.8 (25-34) pg MCHC 34.3 (32-36) g/dL RDW Std Deviation 42.8 (36.4-46.3) fL RDW Coeff of Sunshine 13.2 (11.5-14.5) % Plt Count 268 (130-400) K/uL MPV 9.4 (7.4-10.4) fL Immature Gran % (Auto) 0.2 % Neut % (Auto) 68.7 % Lymph % (Auto) 22.5 % Carroll % (Auto) 8.2 % Eos % (Auto) 0.2 % Baso % (Auto) 0.2 % Immature Gran # (Auto) 0.02 (0.00-0.02) K/uL Neut # (Auto) 5.66 (1.4-6.5) K/uL Lymph # (Auto) 1.86 (1.2-3.4) K/uL Carroll # (Auto) 0.68 H (0.11-0.59) K/uL Eos # (Auto) 0.02 (0-0.5) K/uL Baso # (Auto) 0.02 (0-0.2) K/uL Sodium (136-145) mmol/L Potassium (3.5-5.1) mmol/L Chloride (98-107) mmol/L Carbon Dioxide (21-32) mmol/L Anion Gap (3-11) BUN (7-18) mg/dl Creatinine (0.6-1.4) mg/dl Est Cr Clr Drug Dosing ml/min Est GFR ( Amer) Est GFR (Non-Af Amer) BUN/Creatinine Ratio (10-20) Glucose (70-99) mg/dl Calcium (8.5-10.1) mg/dl Total Bilirubin (0.2-1) mg/dl AST (15-37) U/L ALT (12-78) U/L Alkaline Phosphatase (45-117) U/L Total Protein (6.4-8.2) gm/dl Albumin (3.4-5.0) gm/dl Globulin (2.5-4.0) gm/dl Albumin/Globulin Ratio (0.9-2) TSH (0.300-4.500) uIu/ml Urine Color Dark Yellow Urine Appearance Clear (Clear) Urine pH 5.5 (4.5-7.5) Ur Specific [place] 1.032 H (1.000-1.030) Urine Protein Negative (Negative) Urine Glucose (UA) Negative (Negative) Urine Ketones 1+ H (Negative) Urine Blood Negative (Negative) Urine Nitrite Negative (Negative) Urine Bilirubin Negative (Negative) Urine Urobilinogen Negative (Negative) Ur Leukocyte Esterase Negative (Negative) Salicylates (2.8-20) mg/dl Urine Opiates Screen Neg (Neg) Ur Methadone, Qual Pos H (Neg) Acetaminophen (10-30) ug/ml Urine Barbiturates Neg (Neg) Ur Phencyclidine (PCP) Neg (Neg) U Amphetamin/Meth Scrn Pos H (Neg) MDMA (Ecstasy) Screen Pos H (Neg) U Benzodiazepines Scrn Neg (Neg) Ur Cocaine Metabolite Neg (Neg) U Marijuana (THC) Screen Pos H (Neg) Ethyl Alcohol mg/dL (0-3) mg/dl 09/19/19 09/19/19 09/19/19 Range/Units 14:03 14:03 14:03 WBC (4.8-10.8) K/uL RBC (4.7-6.1) M/uL Hgb (14.0-18.0) g/dL Hct (42-52) % MCV (80-100) fL MCH (25-34) pg MCHC (32-36) g/dL RDW Std Deviation (36.4-46.3) fL RDW Coeff of Sunshine (11.5-14.5) % Plt Count (130-400) K/uL MPV (7.4-10.4) fL Immature Gran % (Auto) % Neut % (Auto) % Lymph % (Auto) % Carroll % (Auto) % Eos % (Auto) % Baso % (Auto) % Immature Gran # (Auto) (0.00-0.02) K/uL Neut # (Auto) (1.4-6.5) K/uL Lymph # (Auto) (1.2-3.4) K/uL Carroll # (Auto) (0.11-0.59) K/uL Eos # (Auto) (0-0.5) K/uL Baso # (Auto) (0-0.2) K/uL Sodium 139 (136-145) mmol/L Potassium 3.7 (3.5-5.1) mmol/L Chloride 107 (98-107) mmol/L Carbon Dioxide 26 (21-32) mmol/L Anion Gap 6.0 (3-11) BUN 12 (7-18) mg/dl Creatinine 0.96 (0.6-1.4) mg/dl Est Cr Clr Drug Dosing 101.3 ml/min Est GFR ( Amer) 115.7 Est GFR (Non-Af Amer) 99.9 BUN/Creatinine Ratio 11.9 (10-20) Glucose 107 H (70-99) mg/dl Calcium 9.4 (8.5-10.1) mg/dl Total Bilirubin 0.4 (0.2-1) mg/dl AST 63 H (15-37) U/L ALT 93 H (12-78) U/L Alkaline Phosphatase 57 (45-117) U/L Total Protein 8.0 (6.4-8.2) gm/dl Albumin 3.7 (3.4-5.0) gm/dl Globulin 4.3 H (2.5-4.0) gm/dl Albumin/Globulin Ratio 0.9 (0.9-2) TSH 0.897 (0.300-4.500) uIu/ml Urine Color Urine Appearance (Clear) Urine pH (4.5-7.5) Ur Specific [place] (1.000-1.030) Urine Protein (Negative) Urine Glucose (UA) (Negative) Urine Ketones (Negative) Urine Blood (Negative) Urine Nitrite (Negative) Urine Bilirubin (Negative) Urine Urobilinogen (Negative) Ur Leukocyte Esterase (Negative) Salicylates < 1.7 L (2.8-20) mg/dl Urine Opiates Screen (Neg) Ur Methadone, Qual (Neg) Acetaminophen < 2 L (10-30) ug/ml Urine Barbiturates (Neg) Ur Phencyclidine (PCP) (Neg) U Amphetamin/Meth Scrn (Neg) MDMA (Ecstasy) Screen (Neg) U Benzodiazepines Scrn (Neg) Ur Cocaine Metabolite (Neg) U Marijuana (THC) Screen (Neg) Ethyl Alcohol mg/dL < 3.0 (0-3) mg/dl Blood Pressure Blood Pressure Findings: Elevated blood pressure Blood Pressure Disposition: Referred to patients primary care provider EMANUEL Narrative Patient is a 39-year-old gentleman with a past medical history of PTSD, kidney stones, polysubstance abuse, methamphetamine usage, antisocial personality disorder, MRSA presenting today with police with report of worsening paranoia and possible suicidal thoughts over the last several weeks. Presents with filois. Patient states that he has been off his meds for several weeks and believes he needs to go back on them. States he is paranoid that people are out try to get him. Denies any suicidal homicidal thoughts to me here. Obie states earlier this day he took a knife when to the bathroom. She is worried he is try to hurt himself and he told her at that time that he just wanted to do the dishes. She is concerned about his safety. Mobile crisis is been involved. Medical clearance was completed. Psychiatric healthcare technician assist with evaluation here. Believe inpatient psychiatric care would be beneficial for th is patient. Petitioning statement from the fianc was completed. 302 given his paranoia and episode today where he had a knife and went to the bathroom concerns for safety. Inpatient psychiatric treatment referral made. Patient was accepted to [facility] [address] for psychiatric treatment of his paranoia and suicidal thoughts. Patient was given a dose of Abilify which he has been on previously at home as he did become mildly agitated here. Impression & Plan Paranoia (psychosis), Methamphetamine abuse, Suicidal thoughts Discharge Plan Visit Data Chief Complaint: Mental Health Evaluation ED Provider: Shiv Bowen Discharge Problem: Paranoia (psychosis), Methamphetamine abuse, Suicidal thoughts Patient Disposition: Transfer Behavioral Health Fac Discharge Instructions Interventions: ED Discharge Assessment Last Done: 09/19/19 17:26 Forms Stand Alone Forms: My [facility], Suicide Prevention Resources Prescriptions Prescriptions: No Action amitriptyline 100 mg Tablet 100 mg PO HS RF: 0 aripiprazole [Abilify] 20 mg Tablet 20 mg PO HS RF: 0 gabapentin 100 mg Capsule 100 mg PO TID RF: 0 lisinopril 5 mg Tablet 5 mg PO DAILY RF: 0 metformin 1,000 mg Tablet 1,000 mg PO BID RF: 0 prazosin 2 mg Capsule 4 mg PO HS RF: 0 topiramate 50 mg Tablet 50 mg PO HS RF: 0 Referrals Referrals: Chichi Loyola, [Primary Care Provider] - The scribe's documentation has been prepared under my direction and personally reviewed by me in its entirety. I confirm that the note above accurately reflects all work, treatment, procedures, and medical decision making performed by me.
[2019-09-19] MEDS ORDERED: ARIPiprazole 10 MG TAB PO STA (16:56)
[2019-09-19] MEDS ORDERED: HALOPERIDOL 10 MG TABLET PO STA (17:06)
[2019-09-19] MEDS: ARIPiprazole 10 MG TAB PO SCH (21:00)
[2019-09-19] MEDS: GABAPENTIN 100 MG CAP PO SCH (21:00)
[2019-09-19] MEDS: METFORMIN HCL 500 MG TAB PO SCH (21:00)
[2019-09-19] MEDS: AMITRIPTYLINE HCL 50 MG TAB PO SCH (21:01)
[2019-09-19] MEDS: PRAZOSIN HCL 1 MG CAP PO SCH (21:01)
[2019-09-20] MEDS: METFORMIN HCL 500 MG TAB PO SCH ×3 (09:33→21:16)
[2019-09-20] MEDS: NICOTINE 21 MG/24 HR TDSY TD SCH (09:34)
[2019-09-20] MEDS: lisinopriL 5 MG TAB PO SCH (09:34)
[2019-09-20] MEDS: GABAPENTIN 100 MG CAP PO SCH ×3 (09:34→21:14)
--- NOTE | 2019-09-20 13:21 | History & Physical ---
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 (Auto) 22.5 [place] % (Auto) 8.2 Eos % (Auto) 0.2 Baso % (Auto) 0.2 Immature Gran # (Auto) 0.02 Neut # (Auto) 5.66 Lymph # (Auto) 1.86 [place] # (Auto) 0.68 H Eos # (Auto) 0.02 Baso # (Auto) 0.02 Sodium 139 Potassium 3.7 Chloride 107 Carbon Dioxide 26 Anion Gap 6.0 BUN 12 Creatinine 0.96 Est Cr Clr Drug Dosing 101.3 Est GFR ( Amer) 115.7 Est GFR (Non-Af Amer) 99.9 BUN/Creatinine Ratio 11.9 Glucose 107 H Calcium 9.4 Total Bilirubin 0.4 AST 63 H ALT 93 H Alkaline Phosphatase 57 Total Protein 8.0 Albumin 3.7 Globulin 4.3 H Albumin/Globulin Ratio 0.9 TSH 0.897 Urine Color Urine Appearance Urine pH Ur Specific [place] Urine Protein Urine Glucose (UA) Urine Ketones Urine Blood Urine Nitrite Urine Bilirubin Urine Urobilinogen Ur Leukocyte Esterase Nasal Screen MRSA (PCR) Salicylates < 1.7 L Urine Opiates Screen Ur Methadone, Qual U Methadone Metabolites Ur Methadone Confirm Acetaminophen < 2 L Urine Barbiturates Ur Phencyclidine (PCP) U Amphetamines Confirm U Amphetamin/Meth Scrn U Methamphetamin Confrm Urine MDEA MDMA (Ecstasy) Screen MDMA Urine MDMA U Benzodiazepines Scrn Ur Cocaine Metabolite U Marijuana (THC) Screen U Marijuana THC Carboxy Drug Screen Comment Ethyl Alcohol mg/dL 09/19/19 09/19/19 14:03 Unknown WBC RBC Hgb Hct MCV MCH MCHC RDW Std Deviation RDW Coeff of [place] Plt Count MPV Immature Gran % (Auto) Neut % (Auto) Lymph % (Auto) [place] % (Auto) Eos % (Auto) Baso % (Auto) Immature Gran # (Auto) Neut # (Auto) Lymph # (Auto) [place] # (Auto) Eos # (Auto) Baso # (Auto) Sodium Potassium Chloride Carbon Dioxide Anion Gap BUN Creatinine Est Cr Clr Drug Dosing Est GFR ( Amer) Est GFR (Non-Af Amer) BUN/Creatinine Ratio Glucose Calcium Total Bilirubin AST ALT Alkaline Phosphatase Total Protein Albumin Globulin Albumin/Globulin Ratio TSH Urine Color Urine Appearance Urine pH Ur Specific [place] Urine Protein Urine Glucose (UA) Urine Ketones Urine Blood Urine Nitrite Urine Bilirubin Urine Urobilinogen Ur Leukocyte Esterase Nasal Screen MRSA (PCR) Negative Salicylates Urine Opiates Screen Ur Methadone, Qual U Methadone Metabolites Ur Methadone Confirm Acetaminophen Urine Barbiturates Ur Phencyclidine (PCP) U Amphetamines Confirm U Amphetamin/Meth Scrn U Methamphetamin Confrm Urine MDEA MDMA (Ecstasy) Screen MDMA Urine MDMA U Benzodiazepines Scrn Ur Cocaine Metabolite U Marijuana (THC) Screen U Marijuana THC Carboxy Drug Screen Comment Ethyl Alcohol mg/dL < 3.0 Current Inpatient Medications Current Inpatient Medications: Current Inpatient Medications Amitriptyline HCl (Elavil) 50 mg PO HS [facility] Stop: 10/19/19 21:59 Last Admin: 09/19/19 21:01 Dose: 50 mg Documented by: Aripiprazole (Abilify) 10 mg PO HS [facility] Stop: 10/19/19 21:59 Last Admin: 09/19/19 21:00 Dose: 10 mg Documented by: Gabapentin (Neurontin) 100 mg PO TID [facility] Stop: 10/19/19 20:59 Last Admin: 09/20/19 09:34 Dose: 100 mg Documented by: Lisinopril (Zestril) 5 mg PO DAILY [facility] Stop: 10/20/19 08:59 Last Admin: 09/20/19 09:34 Dose: 5 mg Documented by: Metformin HCl (Glucophage) 1,000 mg PO BIDM [facility] Stop: 10/19/19 20:59 Last Admin: 09/20/19 09:33 Dose: 1,000 mg Documented by: Miscellaneous (Remove Nicoderm Patch) 1 ea N/A DAILY@0859 [facility] Stop: 10/20/19 08:58 Last Admin: 09/20/19 09:41 Dose: Not Given Documented by: Nicotine (Nicoderm Cq) 21 mg TD QAM [facility] Stop: 10/20/19 08:59 Last Admin: 09/20/19 09:34 Dose: 21 mg Documented by: Prazosin HCl (Prazosin Hcl) 4 mg PO HS [facility] Stop: 10/19/19 21:59 Last Admin: 09/19/19 21:01 Dose: 4 mg Documented by:
[2019-09-20] MEDS ORDERED: BENZTROPINE MESYLATE 0.5 MG TAB PO PRN (18:13)
[2019-09-20] MEDS: haloperidoL 5 MG TAB PO PRN (18:28)
[2019-09-20] MEDS ORDERED: ACETAMINOPHEN 325 MG TAB PO PRN (20:58)
[2019-09-20] MEDS ORDERED: BISMUTH SUBSALICYLATE PER ML OMNICELL CHARGE PO PRN (20:58)
[2019-09-20] MEDS ORDERED: MAGNESIUM HYDROXIDE SUSP 30 ML UDC PO PRN (20:58)
[2019-09-20] MEDS ORDERED: ALUMINUM/MAGNESIUM SUSP 30 ML UDC PO PRN (20:58)
[2019-09-20] MEDS ORDERED: SODIUM CHLORIDE 0.65% NA SOLN 45 ML (OCEAN) PRN (20:58)
[2019-09-20] MEDS: AMITRIPTYLINE HCL 50 MG TAB PO SCH (21:14)
[2019-09-20] MEDS: ARIPiprazole 10 MG TAB PO SCH (21:14)
[2019-09-20] MEDS: PRAZOSIN HCL 1 MG CAP PO SCH (21:15)
[2019-09-21] MEDS: METFORMIN HCL 500 MG TAB PO SCH ×2 (10:02→17:40)
[2019-09-21] MEDS: lisinopriL 5 MG TAB PO SCH (10:03)
[2019-09-21] MEDS: GABAPENTIN 100 MG CAP PO SCH ×3 (10:03→20:54)
[2019-09-21] MEDS: NICOTINE 21 MG/24 HR TDSY TD SCH (10:07)
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
[2019-09-21] MEDS ORDERED: IBUPROFEN 600 MG TAB PO PRN (13:56)
[2019-09-21] MEDS: haloperidoL 5 MG TAB PO SCH (17:36)
[2019-09-21] MEDS: ARIPiprazole 15 MG TAB PO SCH (20:54)
[2019-09-21] MEDS: AMITRIPTYLINE HCL 50 MG TAB PO SCH (20:54)
[2019-09-21] MEDS: PRAZOSIN HCL 1 MG CAP PO SCH (20:55)
[2019-09-21] MEDS: haloperidoL 5 MG TAB PO PRN (20:58)
[2019-09-22] MEDS: METFORMIN HCL 500 MG TAB PO SCH ×2 (08:39→17:33)
[2019-09-22] MEDS: lisinopriL 5 MG TAB PO SCH (08:40)
[2019-09-22] MEDS: GABAPENTIN 100 MG CAP PO SCH ×3 (08:40→21:26)
[2019-09-22] MEDS: NICOTINE 21 MG/24 HR TDSY TD SCH (08:44)
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
[2019-09-22] MEDS: haloperidoL 5 MG TAB PO SCH (17:33)
[2019-09-22] MEDS: AMITRIPTYLINE HCL 50 MG TAB PO SCH (21:27)
[2019-09-22] MEDS: PRAZOSIN HCL 1 MG CAP PO SCH (21:28)
[2019-09-22] MEDS: ARIPiprazole 15 MG TAB PO SCH (21:29)
[2019-09-22] MEDS ORDERED: haloperidoL 5 MG TAB PO SCH (22:00)
[2019-09-23] MEDS: METFORMIN HCL 500 MG TAB PO SCH ×2 (07:56→17:50)
[2019-09-23] MEDS: lisinopriL 5 MG TAB PO SCH (07:56)
[2019-09-23] MEDS: GABAPENTIN 100 MG CAP PO SCH ×3 (07:56→21:40)
[2019-09-23] MEDS: NICOTINE 21 MG/24 HR TDSY TD SCH (07:57)
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
[2019-09-23] MEDS: haloperidoL 5 MG TAB PO SCH (17:50)
[2019-09-23] MEDS: PRAZOSIN HCL 1 MG CAP PO SCH (21:42)
[2019-09-23] MEDS: AMITRIPTYLINE HCL 50 MG TAB PO SCH (21:42)
[2019-09-23] MEDS: HALOPERIDOL 10 MG TABLET PO SCH (21:42)
[2019-09-23] MEDS: ARIPiprazole 15 MG TAB PO SCH (21:45)
[2019-09-24 08:52] LABS: Amphetamine Urine, Confirm >15000 ng/mL (<250); MDA negative; MDEA negative; MDMA (Ecstasy) Urine, Confirm negative; Marijuana Quant, GCMS Urine 238 ng/mL (<5); Methadone, Ur Metabolite 2180 ng/mL (<100)
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
[2019-09-24] MEDS: METFORMIN HCL 500 MG TAB PO SCH ×2 (09:28→17:28)
[2019-09-24] MEDS: GABAPENTIN 100 MG CAP PO SCH ×3 (09:29→21:00)
[2019-09-24] MEDS: lisinopriL 5 MG TAB PO SCH (09:29)
[2019-09-24] MEDS: NICOTINE 21 MG/24 HR TDSY TD SCH (09:29)
[2019-09-24] MEDS ORDERED: ARIPIPRAZOLE 400 MG KIT IM ONE (10:45)
[2019-09-24] MEDS: haloperidoL 5 MG TAB PO SCH (17:27)
[2019-09-24] MEDS: ARIPiprazole 15 MG TAB PO SCH (21:01)
[2019-09-24] MEDS: HALOPERIDOL 10 MG TABLET PO SCH (21:01)
[2019-09-24] MEDS: AMITRIPTYLINE HCL 50 MG TAB PO SCH (21:01)
[2019-09-24] MEDS: PRAZOSIN HCL 1 MG CAP PO SCH (21:02)
[2019-09-25] MEDS: METFORMIN HCL 500 MG TAB PO SCH ×2 (09:13→17:04)
[2019-09-25] MEDS: NICOTINE 21 MG/24 HR TDSY TD SCH (09:14)
[2019-09-25] MEDS: GABAPENTIN 100 MG CAP PO SCH ×3 (09:14→21:13)
[2019-09-25] MEDS: lisinopriL 5 MG TAB PO SCH (09:22)
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
[2019-09-25] MEDS: haloperidoL 5 MG TAB PO SCH (17:04)
[2019-09-25] MEDS: HALOPERIDOL 10 MG TABLET PO SCH (21:13)
[2019-09-25] MEDS: ARIPiprazole 15 MG TAB PO SCH (21:13)
[2019-09-25] MEDS: AMITRIPTYLINE HCL 50 MG TAB PO SCH (21:13)
[2019-09-25] MEDS: PRAZOSIN HCL 1 MG CAP PO SCH (21:14)
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
[2019-09-26] MEDS: lisinopriL 5 MG TAB PO SCH (09:47)
[2019-09-26] MEDS: METFORMIN HCL 500 MG TAB PO SCH ×2 (09:47→17:05)
[2019-09-26] MEDS: GABAPENTIN 100 MG CAP PO SCH ×3 (09:47→21:38)
[2019-09-26] MEDS: NICOTINE 21 MG/24 HR TDSY TD SCH (09:47)
[2019-09-26] MEDS: haloperidoL 5 MG TAB PO SCH (17:05)
[2019-09-26] MEDS: ARIPiprazole 15 MG TAB PO SCH (21:38)
[2019-09-26] MEDS: AMITRIPTYLINE HCL 50 MG TAB PO SCH (21:39)
[2019-09-26] MEDS: HALOPERIDOL 10 MG TABLET PO SCH (21:39)
[2019-09-26] MEDS: PRAZOSIN HCL 1 MG CAP PO SCH (21:40)
[2019-09-27] MEDS: METFORMIN HCL 500 MG TAB PO SCH (08:45)
[2019-09-27] MEDS: NICOTINE 21 MG/24 HR TDSY TD SCH (08:45)
[2019-09-27] MEDS: GABAPENTIN 100 MG CAP PO SCH (08:45)
[2019-09-27] MEDS: lisinopriL 5 MG TAB PO SCH (08:46)
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
== END 2019-09-27 13:05 | disposition home or self-care (01) | DRG 885 ==
LOC: ED 13:12 → 3S 16:58 → SUATTDRO 16:58 → 3S 17:26

== ENCOUNTER 2021-04-22 12:10 | Inpatient (IN) ==
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
[2021-04-22 13:08] LABS: Appearance Urine Cloudy (Clear); Bacteria Urine Automated Negative (Negative); Blood Urine Negative (Negative); Color Urine Dark Yellow; Glucose Urine UA Negative (Negative); Ketones Urine Trace (Negative); Leukocyte Esterase Urine 1+ (Negative); Nitrite Urine Negative (Negative); Protein Urine Negative (Negative); RBC Urine Automated 0-4 /hpf (0-4); Specific Gravity Urine 1.025 (1.000-1.030); Urobilinogen Urine Negative (Negative)
[2021-04-22 13:08] LABS: Basophils # (auto) 0.02 K/uL (0-0.2); Basophils % (auto) 0.2 %; Hematocrit (blood only) 45.2 % (42-52); Hemoglobin 15.2 g/dL (14.0-18.0); Immature Granulocytes # (auto) 0.02 K/uL (0.00-0.02); Immature Granulocytes % (auto) 0.2 %; Lymphocytes # (auto) 1.74 K/uL (1.2-3.4); Lymphocytes % (auto) 18.2 %; Mean Corpuscular Hemoglobin 31.4 pg (25-34); Mean Corpuscular Hgb Conc 33.6 g/dL (32-36); Mean Corpuscular Volume 93.4 fL (80-100); Mean Platelet Volume 9.9 fL (7.4-10.4); Monocytes # (auto) 0.34 K/uL (0.11-0.59); Monocytes % (auto) 3.6 %; Neutrophils # (auto) 7.42 K/uL (1.4-6.5); Neutrophils % (auto) 77.8 %; Platelet Count 262 K/uL (130-400); RDW Coefficient of Variation 13.5 % (11.5-14.5); RDW Standard Deviation 46.2 fL (36.4-46.3); Red Blood Count 4.84 M/uL (4.7-6.1); White Blood Count 9.54 K/uL (4.8-10.8)
[2021-04-22 13:10] LABS: Bilirubin Urine 1+ (Negative)
[2021-04-22 13:27] LABS: Amphetamines+Metham, Urine Neg (Neg); Barbiturates, Urine Neg (Neg); Benzodiazepine, Urine Pos (Neg); Cocaine, Urine Neg (Neg); MDMA (Ecstacy), Urine Neg (Neg); Methadone, Urine Pos (Neg); Opiate, Urine Neg (Neg); Phencyclidine, Urine Neg (Neg)
[2021-04-22 13:31] LABS: Albumin Level 3.5 gm/dl (3.4-5.0); BUN Creatinine Ratio 4.7 (10-20); Calcium 9.1 mg/dl (8.5-10.1); Creatinine Clr Calc Pharmacy 79.4 ml/min; Est GFR (African American) 74.8 ml/min; Est GFR (Non-African American) 64.5 ml/min; Potassium 4.2 mmol/L (3.5-5.1)
[2021-04-22 13:41] LABS: Acetaminophen < 2 ug/ml (10-30); Albumin Globulin Ratio 0.8 (0.9-2); Bilirubin,Total 0.5 mg/dl (0.2-1); Globulin 4.2 gm/dl (2.5-4.0); Salicylate < 1.7 mg/dl (2.8-20); Thyroid Stimulating Hormone 1.06 uIu/ml (0.300-4.500); Total Protein 7.7 gm/dl (6.4-8.2)
[2021-04-22] MEDS ORDERED: SODIUM CHLORIDE 0.65% NA SOLN 45 ML (OCEAN) PRN (16:12)
[2021-04-22] MEDS ORDERED: ACETAMINOPHEN 325 MG TAB PO PRN (16:12)
[2021-04-22] MEDS ORDERED: hydrOXYzine HCl 25 MG TAB PO PRN ×2 (16:12)
[2021-04-22] MEDS ORDERED: BISMUTH SUBSALICYLATE LIQD 236 ML PO PRN (16:12)
[2021-04-22] MEDS ORDERED: ALUMINUM/MAGNESIUM SUSP 30 ML UDC PO PRN (16:12)
[2021-04-22] MEDS ORDERED: MAGNESIUM HYDROXIDE SUSP 30 ML UDC PO PRN (16:12)
[2021-04-22] MEDS ORDERED: CYCLOBENZAPRINE HCL 10 MG TAB PO PRN (16:18)
[2021-04-22] MEDS: PRAZOSIN HCL 1 MG CAP PO SCH (20:55)
[2021-04-22] MEDS: SIMVASTATIN 20 MG TAB PO SCH (20:56)
[2021-04-22] MEDS: cloZAPine 25 MG TAB PO SCH (20:56)
[2021-04-22] MEDS: metFORMIN HCL 500 MG TAB PO SCH (20:58)
[2021-04-22] MEDS: cloNIDine HCL 0.1 MG TAB PO SCH (20:58)
[2021-04-23 06:33] VITALS: O2SAT 97
[2021-04-23] MEDS: cloNIDine HCL 0.1 MG TAB PO SCH ×2 (08:59→20:58)
[2021-04-23] MEDS: METHADONE ORAL SOLN 2 MG/ML PO SCH (09:00)
[2021-04-23] MEDS: PATIENT'S OWN CONTROLLED MED 2 PO SCH (09:03)
[2021-04-23] MEDS: metFORMIN HCL 500 MG TAB PO SCH ×2 (09:03→17:21)
--- NOTE | 2021-04-23 11:55 | History & Physical ---
Date of Service April 23, 2021 Impression / Recommendations Impression 40 yo male with a history of substance induced psychosis and recurrent depression with remote suicide attempt but multiple inpatient hospitalizations presents with worsening depression, SI with plan, despite extensive community supports. Presentation this hospitalization is dramatically different from previous as he is not using meth. (1) Schizoaffective disorder, depressive type: (2) Long-term current use of methadone for opiate dependence: (3) Testosterone deficiency in male: 04/23/21--The patient was admitted to the [facility]) on q15 min checks (behavioral with suicide precautions) for safety. The patient will participate in group, recreational, and milieu therapies and will be offered additional individual and family sessions as clinically appropriate. Valeria Pascal PA-C was contacted to coordinate care with [facility] team and to discuss medication options as would benefit from an antidepressant (provided med hx above) with past clear response to Wellbutrin. She feels strongly that low T is contributing to his anxiety and depression. He has received 1 injection under direction of Dr. Loyola but insurance requires 3 blood draws to authorize. Will repeat #2 here with his am fasting metabolic labs. Risks/benefits/alternatives were reviewed re: his current medication (primarily Clozaril) and restart Wellbutrin. Discussion included but was not limited to need for metabolic and TD monitoring. He has no abnormal motor movements at baseline. Reviewed with patient that benzodiazepines are contraindicated in combination with methadone and can result in respiratory depression and even . This discussion around this and his MJ use lasted more than 5 min and constitutes a brief intervention. He was receptive but minimized use. He was made aware of depressant nature of these substances and how can interact with his medications. He is agreeable to continue therapy with [facility]'s methadone program. His dose of methadone was confirmed with [facility] before administered by hospital. Inventory Assets Strengths: has been more compliant with outpatient services, maintaining a job Needs: team meeting, antidepressant retrial Risk Factors Assessment Male: Yes : Yes Do You Have Access To A Gun?: No Mental Health Diagnoses: Yes Substance Use Disorders: Yes Previous Attempt: Yes Protective Factors Assessment Employed: Yes ([employer]) Stable Relationships: Yes Good Rapport with Provider: Yes Psychiatric History Identifying Data ALICIA DAVIS is a 40-year-old M who currently lives in [place], has a history psychosis (primarily substance induced) and recurrent depression, and was admitted on 04/22/21 17:05 on a 201 voluntary commitment for SI with plan. Chief Complaint "I've been down for months, I can't sleep". History of Present Illness Alicia reports worsening mood, low energy, anxiety, and difficulty concentrating for several weeks "if not months" despite community supports. He denies paranoia, meth use, or med noncompliance which have generally been involved with past admissions. 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 He denies missing any methadone maintenance visits/withdrawal. He has been isolating himself, or at least not talking as much/sharing his feelings with his long time girlfriend but she has noted his disrupted sleep. It takes him several hours to fall asleep due to "racing thoughts" that he can not really elaborate on. He did test positive for benzodiazepines and MJ in the emergency and he states this is rare use, states took 1 Xanax from a friend last week to "chill". He woke up yesterday feeling that he needed to "end it" with thoughts to either "slit my wrists" or OD. He denies any periods of irritable mood or rambo. He denies howard or delusions. He denies any change in his overall health but testosterone levels have been monitored by Dr. Loyola and lane. If persists, he may meet criteria for authorization for testosterone replacement therapy. Past Psychiatric History Current Psychiatric Diagnosis: Schizoaffective D/O [facility] Previous Psych Admissions: 8-12 ([facility] 2017, 2018, 2018, 2019) Do You Have Access To A Gun?: No History of Previous Suicide Attempt: Yes (OD maybe 10 years ago) Past Medication Trials: likely not exhaustive list--Effexor XR, buproprion (was discontinued by the [facility] during Spring 2021 hospitalization, traditionally helpful and decreased cravings), Paxil, Celexa, Abilify (now on maintenna), trazodone, topiramate, amytrip, lexapro, hydroxyzine, gabapentin. Past Head Trauma/Neuro History History of Concussion/Seizure: No Allergies Allergy/AdvReac Type Severity Reaction Status Date / Time No Known Allergies Allergy Verified 10/13/20 15:22 Home Medications Medication Instructions Recorded Confirmed Type prazosin 5 mg capsule 5 mg PO HS 06/26/20 04/23/21 History aripiprazole 400 mg intramuscular 400 mg IM MONTHLY 10/13/20 04/23/21 History suspension,extended release (Marlennicholas Berenicea) methadone 10 mg/5 mL oral solution 94 mg PO DAILY 10/13/20 04/22/21 History clonidine HCl 0.1 mg tablet 0.1 mg PO BID 04/22/21 04/22/21 History clozapine 50 mg tablet 50 mg PO HS 04/22/21 04/22/21 History cyclobenzaprine 10 mg tablet 10 mg PO Q8H PRN 04/22/21 04/22/21 History metformin 500 mg tablet 500 mg PO BIDM 04/22/21 04/23/21 History simvastatin 20 mg tablet 20 mg PO QPM 04/22/21 04/22/21 History testosterone cypionate 200 mg/mL See Rx Instructions .ROUTE .COMPLEX 04/22/21 04/23/21 History intramuscular oil aripiprazole 5 mg tablet See Rx Instructions .ROUTE .COMPLEX 04/23/21 04/23/21 History Family History Family History of: Doesn't Know Alcohol History Hx of Alcohol Use Over the Past 12 Months: No AUDIT Total Score: 0 Smoking Use Have You Smoked or Used Tobacco Products in the Last 30 Days: Yes tobacco type: cigarettes Smoking Status: Current every day smoker Smoking packs per day: 0.25 Substance History Hx of Prescription Med Misuse Over the Past 12 Months: Yes (denied, but tested positive for benzos) Hx of Over the Counter Med Misuse Over the Past 12 Months: No Hx of Inhalent Misuse Over the Past 12 Months: No Hx of Organic Substance Use Over the Past 12 Months: Yes (positive for THC) Hx of Illegal Substances/Street Drug Use Over Past 12 Months: No hx of rehabs at [facility] 2018 Personal History Living Arrangements: Apartment Born In: [place] Childhood: only child, parents when he was 4 Highest Grade Completed: G.E.D. 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 Other Number Of Children: 2 (live with their mother--previous relationship) Beliefs That Will Affect Care: None Hx Legal Problems: Yes (hx of incarceration (drug related)) Patient History Medical History Amphetamine abuse Antisocial personality disorder Cannabis abuse Chronic back pain Elevated transaminase level Flank pain Heroin overdose Major depressive disorder, recurrent severe without psychotic features MRSA carrier Nephrolithiasis Obesity Opiate abuse, episodic Polysubstance abuse Psychosis PTSD (post-traumatic stress disorder) Right ureteral calculus Suicidal ideation Tobacco use disorder Ureteral calculi Surgical History History of cholecystectomy Family History Other No significant family history Social History Smoking Status: Current every day smoker Tobacco Type: Cigarettes Preferred Language: Serbian Communication Ability: Effective Developer Automatic Required: No Beliefs That Will Affect Care: None marital status: Single Current Living Situation: Significant Other current occupational status: employed Feels Safe at Home: Yes Assistive Devices: None Review of Systems Review of Systems: All systems reviewed & are unremarkable except as noted in HPI & below Physical Exam Psychiatric: Orientation: alert and oriented x 3 Apperance: appropriately dressed and appropriately groomed Eye Contact: good eye contact Motor Behavior: no abnormal motor movements speech is somewhat slow Affect: + depressed affect Mood: + depressed mood Thought Process: goal directed thought process Thought Content: reality based without delusions Suicidal Thoughts: denies suicidal plan (on unit); + reports suicidal thoughts Homicidal Thoughts: denies homicidal thoughts Hallucinations: no auditory hallucinations and no visual hallucinations Cognition: attention grossly intact and language grossly intact Estimated Intelligence: consistent with education level Insight: + limited insight Judgement: + limited judgement Vital Signs (Past 24 Hours): Last Vital Signs Temp 36.8 C 04/23/21 06:00 Pulse 71 04/23/21 06:32 Resp 18 04/23/21 06:00 BP 122/77 04/23/21 06:32 Pulse Ox 97 04/23/21 06:00 Exam Statement: A physical exam was performed in the ED by Dr. Parker for the purposes of medical clearance. I accept that physical as correct and adequate for the purposes of the inpatient physical exam. Results & Data (U) Laboratory Results Laboratory Results - last 24 hr 04/22/21 04/22/21 04/22/21 12:32 12:32 12:32 WBC RBC Hgb Hct MCV MCH MCHC RDW Std Deviation RDW Coeff of Sunshine Plt Count MPV Immature Gran % (Auto) Neut % (Auto) Lymph % (Auto) [place] % (Auto) Eos % (Auto) Baso % (Auto) Neut # (Auto) Lymph # (Auto) [place] # (Auto) Eos # (Auto) Baso # (Auto) Immature Gran # (Auto) Sodium Potassium Chloride Carbon Dioxide Anion Gap BUN Creatinine Est Cr Clr Drug Dosing Est GFR ( Amer) Est GFR (Non-Af Amer) BUN/Creatinine Ratio Glucose Calcium Total Bilirubin AST ALT Alkaline Phosphatase Total Protein Albumin Globulin Albumin/Globulin Ratio TSH Urine Color Dark Yellow Urine Appearance Cloudy A Urine pH 5.0 Ur Specific Downs 1.025 Urine Protein Negative Urine Glucose (UA) Negative Urine Ketones Trace H Urine Blood Negative Urine Nitrite Negative Urine Bilirubin 1+ H Urine Urobilinogen Negative Ur Leukocyte Esterase 1+ H Urine WBC (Auto) 5-10 H Urine RBC (Auto) 0-4 U Hyaline Cast (Auto) 5-10 H U Epithel Cells (Auto) 10-20 H Urine Bacteria (Auto) Negative Salicylates Urine Opiates Screen Neg Ur Methadone, Qual Pos H U Methadone Metabolites Pending Ur Methadone Confirm Pending Acetaminophen Urine Barbiturates Neg Ur Phencyclidine (PCP) Neg U Amphetamin/Meth Scrn Neg MDMA (Ecstasy) Screen Neg U OH-Alprazolam Confrm Pending U Benzodiazepines Scrn Pos H 7-Amino Clonazepam Pending Ur Nordiazepam Confirm Pending U OH-ethylflurazepam Pending U Lorazepam Cnf GC/MS Pending U Oxazepam Confm GC/MS Pending Ur Temazepam Confirm Pending U OH-Triazolam Confirm Pending U OH-Midazolam Confirm Pending Ur Cocaine Metabolite Neg U Marijuana (THC) Screen Pos H U Marijuana THC Carboxy Pending Drug Screen Comment Pending Ethyl Alcohol mg/dL COVID-19 Eval Order SARS-CoV-2 (PCR) 04/22/21 04/22/21 04/22/21 12:54 12:54 12:54 WBC 9.54 RBC 4.84 Hgb 15.2 Hct 45.2 MCV 93.4 MCH 31.4 MCHC 33.6 RDW Std Deviation 46.2 RDW Coeff of Sunshine 13.5 Plt Count 262 MPV 9.9 Immature Gran % (Auto) 0.2 Neut % (Auto) 77.8 Lymph % (Auto) 18.2 [place] % (Auto) 3.6 Eos % (Auto) 0.0 Baso % (Auto) 0.2 Neut # (Auto) 7.42 H Lymph # (Auto) 1.74 [place] # (Auto) 0.34 Eos # (Auto) 0.00 Baso # (Auto) 0.02 Immature Gran # (Auto) 0.02 Sodium 143 Potassium 4.2 Chloride 110 H Carbon Dioxide 28 Anion Gap 5.0 BUN 7 Creatinine 1.37 Est Cr Clr Drug Dosing 79.4 Est GFR ( Amer) 74.8 Est GFR (Non-Af Amer) 64.5 BUN/Creatinine Ratio 4.7 L Glucose 164 H Calcium 9.1 Total Bilirubin 0.5 AST 55 H ALT 88 H Alkaline Phosphatase 60 Total Protein 7.7 Albumin 3.5 Globulin 4.2 H Albumin/Globulin Ratio 0.8 L TSH 1.060 Urine Color Urine Appearance Urine pH Ur Specific Downs Urine Protein Urine Glucose (UA) Urine Ketones Urine Blood Urine Nitrite Urine Bilirubin Urine Urobilinogen Ur Leukocyte Esterase Urine WBC (Auto) Urine RBC (Auto) U Hyaline Cast (Auto) U Epithel Cells (Auto) Urine Bacteria (Auto) Salicylates < 1.7 L Urine Opiates Screen Ur Methadone, Qual U Methadone Metabolites Ur Methadone Confirm Acetaminophen < 2 L Urine Barbiturates Ur Phencyclidine (PCP) U Amphetamin/Meth Scrn MDMA (Ecstasy) Screen U OH-Alprazolam Confrm U Benzodiazepines Scrn 7-Amino Clonazepam Ur Nordiazepam Confirm U OH-ethylflurazepam U Lorazepam Cnf GC/MS U Oxazepam Confm GC/MS Ur Temazepam Confirm U OH-Triazolam Confirm U OH-Midazolam Confirm Ur Cocaine Metabolite U Marijuana (THC) Screen U Marijuana THC Carboxy Drug Screen Comment Ethyl Alcohol mg/dL COVID-19 Eval Order SARS-CoV-2 (PCR) 04/22/21 04/22/21 04/22/21 12:54 13:17 13:17 WBC RBC Hgb Hct MCV MCH MCHC RDW Std Deviation RDW Coeff of Sunshine Plt Count MPV Immature Gran % (Auto) Neut % (Auto) Lymph % (Auto) [place] % (Auto) Eos % (Auto) Baso % (Auto) Neut # (Auto) Lymph # (Auto) [place] # (Auto) Eos # (Auto) Baso # (Auto) Immature Gran # (Auto) Sodium Potassium Chloride Carbon Dioxide Anion Gap BUN Creatinine Est Cr Clr Drug Dosing Est GFR ( Amer) Est GFR (Non-Af Amer) BUN/Creatinine Ratio Glucose Calcium Total Bilirubin AST ALT Alkaline Phosphatase Total Protein Albumin Globulin Albumin/Globulin Ratio TSH Urine Color Urine Appearance Urine pH Ur Specific Downs Urine Protein Urine Glucose (UA) Urine Ketones Urine Blood Urine Nitrite Urine Bilirubin Urine Urobilinogen Ur Leukocyte Esterase Urine WBC (Auto) Urine RBC (Auto) U Hyaline Cast (Auto) U Epithel Cells (Auto) Urine Bacteria (Auto) Salicylates Urine Opiates Screen Ur Methadone, Qual U Methadone Metabolites Ur Methadone Confirm Acetaminophen Urine Barbiturates Ur Phencyclidine (PCP) U Amphetamin/Meth Scrn MDMA (Ecstasy) Screen U OH-Alprazolam Confrm U Benzodiazepines Scrn 7-Amino Clonazepam Ur Nordiazepam Confirm U OH-ethylflurazepam U Lorazepam Cnf GC/MS U Oxazepam Confm GC/MS Ur Temazepam Confirm U OH-Triazolam Confirm U OH-Midazolam Confirm Ur Cocaine Metabolite U Marijuana (THC) Screen U Marijuana THC Carboxy Drug Screen Comment Ethyl Alcohol mg/dL < 3.0 COVID-19 Eval Order Covid19 at [facility] SARS-CoV-2 (PCR) NEGATIVE Current Inpatient Medications Current Inpatient Medications: Current Inpatient Medications Acetaminophen (Acetaminophen 325 Mg Tab) 650 mg PO Q4H PRN PRN Reason: Headache or Minor Fever Stop: 05/22/21 16:11 Al Hydrox/Mg Hydrox/Simethicone (Aluminum/Magnesium Susp 30 Ml Udc) 30 ml PO Q4H PRN PRN Reason: GI Upset Stop: 05/22/21 16:11 Bismuth Subsalicylate (Bismuth Subsalicylate Liqd 236 Ml) 15 ml PO PRN PRN PRN Reason: Loose Stool Stop: 05/22/21 16:11 Clonidine HCl (Clonidine Hcl 0.1 Mg Tab) 0.1 mg PO BID RAMÓN Stop: 05/22/21 20:59 Last Admin: 04/23/21 08:59 Dose: 0.1 mg Documented by: Clozapine (Clozapine 25 Mg Tab) 50 mg PO HS RAMÓN Stop: 05/22/21 20:59 Last Admin: 04/22/21 20:56 Dose: 50 mg Documented by: Hydroxyzine HCl (Hydroxyzine Hcl 25 Mg Tab) 50 mg PO HSZ PRN PRN Reason: Insomnia Stop: 05/22/21 16:11 Hydroxyzine HCl (Hydroxyzine Hcl 25 Mg Tab) 25 mg PO Q4H PRN PRN Reason: Anxiety Stop: 05/22/21 16:11 Magnesium Hydroxide (Magnesium Hydroxide Susp 30 Ml Udc) 30 ml PO DAILY PRN PRN Reason: Constipation Stop: 05/22/21 16:11 Metformin HCl (Metformin Hcl 500 Mg Tab) 500 mg PO BIDM RAMÓN Stop: 05/22/21 18:59 Last Admin: 04/23/21 09:03 Dose: Not Given Documented by: Methadone HCl (Methadone Oral Soln 2 Mg/Ml) 94 mg PO DAILY RAMÓN Stop: 05/07/21 08:59 Last Admin: 04/23/21 09:00 Dose: 94 mg Documented by: Non-Formulary Medication (Patient's Own Controlled Med) 1 ea PO DAILY RAMÓN Stop: 05/07/21 08:59 Last Admin: 04/23/21 09:03 Dose: Not Given Documented by: Prazosin HCl (Prazosin Hcl 1 Mg Cap) 5 mg PO QPM RAMÓN Stop: 05/22/21 20:59 Last Admin: 04/22/21 20:55 Dose: 5 mg Documented by: Simvastatin (Simvastatin 20 Mg Tab) 20 mg PO QPM RAMÓN Stop: 05/22/21 20:59 Last Admin: 04/22/21 20:56 Dose: 20 mg Documented by: Sodium Chloride (Sodium Chloride 0.65% Na Soln 45 Ml ([place])) 1 - 2 sprays NA PRN PRN PRN Reason: Nasal Dryness/Congestion Stop: 05/22/21 16:11
[2021-04-23] MEDS: buPROPion XL 150 MG TABCR PO SCH (12:27)
[2021-04-23] MEDS: cloZAPine 25 MG TAB PO SCH (20:57)
[2021-04-23] MEDS: SIMVASTATIN 20 MG TAB PO SCH (20:58)
[2021-04-23] MEDS: PRAZOSIN HCL 1 MG CAP PO SCH (20:58)
[2021-04-24] MEDS: buPROPion XL 150 MG TABCR PO SCH (08:54)
[2021-04-24] MEDS: metFORMIN HCL 500 MG TAB PO SCH ×2 (08:54→17:15)
[2021-04-24] MEDS: cloNIDine HCL 0.1 MG TAB PO SCH ×2 (08:54→21:02)
[2021-04-24] MEDS: METHADONE ORAL SOLN 2 MG/ML PO SCH (08:55)
[2021-04-24] MEDS: PATIENT'S OWN CONTROLLED MED 2 PO SCH (08:55)
[2021-04-24 09:04] LABS: Estimated Average Glucose 134 mg/dl; Hemoglobin A1C 6.3 % (4.5-5.6)
[2021-04-24 09:08] LABS: Chol HDL Ratio 4; Cholesterol 135 mg/dl (0-200); HDL Cholesterol 36 mg/dl; LDL Cholesterol Calculated 67 mg/dl; Triglycerides 160 mg/dl (0-150); VLDL Cholesterol 32 mg/dl
--- NOTE | 2021-04-24 13:29 | Psychiatric Progress Note ---
Date of Service April 24, 2021 Impression / Recommendations Impression 40 yo male with a history of substance induced psychosis and recurrent depression with remote suicide attempt but multiple inpatient hospitalizations presents with worsening depression, SI with plan, despite extensive community supports. Presentation this hospitalization is dramatically different from previous as he is not using meth. (1) Schizoaffective disorder, depressive type: (2) Long-term current use of methadone for opiate dependence: (3) Testosterone deficiency in male: 04/23/21--The patient was admitted to the [facility] on q15 min checks (behavioral with suicide precautions) for safety. The patient will participate in group, recreational, and milieu therapies and will be offered additional individual and family sessions as clinically appropriate. Valeria Pascal PA-C was contacted to coordinate care with [facility] team and to discuss medication options as would benefit from an antidepressant (provided med hx above) with past clear response to Wellbutrin. She feels strongly that low T is contributing to his anxiety and depression. He has received 1 injection under direction of Dr. Loyola but insurance requires 3 blood draws to authorize. Will repeat #2 here with his am fasting metabolic labs. Risks/benefits/alternatives were reviewed re: his current medication (primarily Clozaril) and restart Wellbutrin. Discussion included but was not limited to need for metabolic and TD monitoring. He has no abnormal motor movements at baseline. Reviewed with patient that benzodiazepines are contraindicated in combination with methadone and can result in respiratory depression and even . This discussion around this and his MJ use lasted more than 5 min and constitutes a brief intervention. He was receptive but minimized use. He was made aware of depressant nature of these substances and how can interact with his medications. He is agreeable to continue therapy with [facility]'s methadone program. His dose of methadone was [facility] with [facility] before administered by hospital. 1patient is behaviorally appropriate, attending groups and compliant with medications. Mood remains depressed, we will continue current treatment plan Inventory Assets Strengths: has been more compliant with outpatient services, maintaining a job Needs: team meeting, antidepressant retrial Risk Factors Assessment Male: Yes : Yes Do You Have Access To A Gun?: No Mental Health Diagnoses: Yes Substance Use Disorders: Yes Previous Attempt: Yes Protective Factors Assessment Employed: Yes ([employer]) Stable Relationships: Yes Good Rapport with Provider: Yes Interval History Chief Complaint "I'm still feeling down". Review of Systems Sleep Information Total Hours of Sleep: 7 Meal Information Percent Meal Consumed - Breakfast: 90 Percent Meal Consumed - Lunch: 100 Percent Meal Consumed - Dinner: 100 Subjective Subjective Patient seen, chart reviewed and case discussed with treatment team, nursing and social work. Patient reports a decent night of sleep and strong appetite. Patient has been compliant with the Wellbutrin medication. No side effects reported or observed. Regarding mood, patient reports some improvement which they attribute to the medications as well as the therapy they have received on the unit. I spent 30 minutes with the patient, 50% of which was dedicated to counselling and coordination of care. Physical Exam Psychiatric Orientation: alert and oriented x 3 Apperance: appropriately dressed and appropriately groomed Eye Contact: good eye contact Motor Behavior: no abnormal motor movements Affect: + depressed affect Mood: + depressed mood Thought Process: goal directed thought process Thought Content: reality based without delusions Suicidal Thoughts: denies suicidal plan (on unit); + reports suicidal thoughts Homicidal Thoughts: denies homicidal thoughts Hallucinations: no auditory hallucinations and no visual hallucinations Cognition: attention grossly intact and language grossly intact Estimated Intelligence: consistent with education level Insight: + limited insight Judgement: + limited judgement Vital Signs (Past 24 Hours) Last Vital Signs Temp 36.6 C 04/24/21 06:37 Pulse 75 04/24/21 09:00 Resp 18 04/24/21 06:37 BP 132/84 04/24/21 09:00 Pulse Ox 97 04/23/21 06:00 Results & Data ([facility]) Laboratory Results Laboratory Results - last 24 hr 04/24/21 04/24/21 04/24/21 08:36 08:36 08:36 Estimat Average Glucose 134 Hemoglobin A1c 6.3 H Triglycerides 160 H Cholesterol 135 LDL Cholesterol, Calc 67 VLDL Cholesterol, Calc 32 HDL Cholesterol 36 Cholesterol/HDL Ratio 4 Total Testosterone Pending Free Testosterone Pending Current Inpatient Medications Current Inpatient Medications: Current Inpatient Medications Acetaminophen (Acetaminophen 325 Mg Tab) 650 mg PO Q4H PRN PRN Reason: Headache or Minor Fever Stop: 05/22/21 16:11 Al Hydrox/Mg Hydrox/Simethicone (Aluminum/Magnesium Susp 30 Ml Udc) 30 ml PO Q4H PRN PRN Reason: GI Upset Stop: 05/22/21 16:11 Bismuth Subsalicylate (Bismuth Subsalicylate Liqd 236 Ml) 15 ml PO PRN PRN PRN Reason: Loose Stool Stop: 05/22/21 16:11 Bupropion HCl (Bupropion Xl 150 Mg Tabcr) 150 mg PO QAM RAMÓN Stop: 05/23/21 12:14 Last Admin: 04/24/21 08:54 Dose: 150 mg Documented by: Clonidine HCl (Clonidine Hcl 0.1 Mg Tab) 0.1 mg PO BID RAMÓN Stop: 05/22/21 20:59 Last Admin: 04/24/21 08:54 Dose: 0.1 mg Documented by: Clozapine (Clozapine 25 Mg Tab) 50 mg PO HS RAMÓN Stop: 05/22/21 20:59 Last Admin: 04/23/21 20:57 Dose: 50 mg Documented by: Hydroxyzine HCl (Hydroxyzine Hcl 25 Mg Tab) 50 mg PO HSZ PRN PRN Reason: Insomnia Stop: 05/22/21 16:11 Hydroxyzine HCl (Hydroxyzine Hcl 25 Mg Tab) 25 mg PO Q4H PRN PRN Reason: Anxiety Stop: 05/22/21 16:11 Magnesium Hydroxide (Magnesium Hydroxide Susp 30 Ml Udc) 30 ml PO DAILY PRN PRN Reason: Constipation Stop: 05/22/21 16:11 Metformin HCl (Metformin Hcl 500 Mg Tab) 500 mg PO BIDM RAMÓN Stop: 05/22/21 18:59 Last Admin: 04/24/21 08:54 Dose: 500 mg Documented by: Methadone HCl (Methadone Oral Soln 2 Mg/Ml) 94 mg PO DAILY RAMÓN Stop: 05/07/21 08:59 Last Admin: 04/24/21 08:55 Dose: 94 mg Documented by: Non-Formulary Medication (Patient's Own Controlled Med) 1 ea PO DAILY RAMÓN Stop: 05/07/21 08:59 Last Admin: 04/24/21 08:55 Dose: Not Given Documented by: Prazosin HCl (Prazosin Hcl 1 Mg Cap) 5 mg PO QPM RAMÓN Stop: 05/22/21 20:59 Last Admin: 04/23/21 20:58 Dose: 5 mg Documented by: Simvastatin (Simvastatin 20 Mg Tab) 20 mg PO QPM RAMÓN Stop: 05/22/21 20:59 Last Admin: 04/23/21 20:58 Dose: 20 mg Documented by: Sodium Chloride (Sodium Chloride 0.65% Na Soln 45 Ml ([place])) 1 - 2 sprays NA PRN PRN PRN Reason: Nasal Dryness/Congestion Stop: 05/22/21 16:11 Mental Health & Subst Abuse Tx Psychiatrist Name of Psychiatrist: Linda Gonzales PA-C Psychiatrist's Date of Appointment with Psychiatrist: 04/30/21 Time of Appointment with Psychiatrist: 12 p.m. Psychiatric Appointment Comment: [address] [place] [address] Therapist Name of Therapist: . Title Officer Name of Title Officer: [employer] - Emily Guzman Phone Number for Title Officer: [phone] Case Management Appointment Comment: Continue to see per routine - call at any time if/when needed Post Discharge Appointments Primary Care Physician Name Of Family Doctor: Linda Atkinson - Dr. Loyola Primary Care Time of Appointment with PCP: Please follow up as needed Provider Appointment Comment: [address] [place] [address] Elastic Cutter Name of Elastic Cutter: Yuri Zhou Phone Number of Elastic Cutter: [phone] Time of Appointment with Elastic Cutter: Continue to see per routine - call at any time if/when needed Elastic Cutter Appointment Comment: [address] [facility] [address], [place], [place] Other #1: Name of Aftercare Appointment: [place] [facility] Phone Number of Aftercare Appointment: Time of Aftercare Appointment: Continue to see per routine - call at any time if/when needed Aftercare Appointment Comment: [address], [place] [address] #2: Name of Aftercare Appointment: Magdy Keys - Ghada Phone Number of Aftercare Appointment: [phone] Date of Aftercare Appointment: 04/30/21 Time of Aftercare Appointment: 11 a.m. Aftercare Appointment Comment: [address] [place] Contact Information Discharge Discharge Address: [address] [place] [address] [address], [place] [address]
[2021-04-24] MEDS: SIMVASTATIN 20 MG TAB PO SCH (21:01)
[2021-04-24] MEDS: cloZAPine 25 MG TAB PO SCH (21:02)
[2021-04-24] MEDS: PRAZOSIN HCL 1 MG CAP PO SCH (21:04)
[2021-04-25] MEDS: buPROPion XL 150 MG TABCR PO SCH (08:45)
[2021-04-25] MEDS: cloNIDine HCL 0.1 MG TAB PO SCH ×2 (08:45→22:06)
[2021-04-25] MEDS: metFORMIN HCL 500 MG TAB PO SCH ×2 (08:45→17:17)
[2021-04-25] MEDS: PATIENT'S OWN CONTROLLED MED 2 PO SCH (08:46)
[2021-04-25] MEDS: METHADONE ORAL SOLN 2 MG/ML PO SCH (08:46)
--- NOTE | 2021-04-25 15:28 | Psychiatric Progress Note ---
Date of Service April 25, 2021 Impression / Recommendations Impression 40 yo male with a history of substance induced psychosis and recurrent depression with remote suicide attempt but multiple inpatient hospitalizations presents with worsening depression, SI with plan, despite extensive community supports. Presentation this hospitalization is dramatically different from previous as he is not using meth. (1) Schizoaffective disorder, depressive type: (2) Long-term current use of methadone for opiate dependence: (3) Testosterone deficiency in male: 04/23/21--The patient was admitted to the [facility] ([facility] mental [facility] unit) on q15 min checks (behavioral with suicide precautions) for safety. The patient will participate in group, recreational, and milieu therapies and will be offered additional individual and family sessions as clinically appropriate. Valeria Pascal PA-C was contacted to coordinate care with [facility] team and to discuss medication options as would benefit from an antidepressant (provided med hx above) with past clear response to Wellbutrin. She feels strongly that low T is contributing to his anxiety and depression. He has received 1 injection under direction of Dr. Loyola but insurance requires 3 blood draws to authorize. Will repeat #2 here with his am fasting metabolic labs. Risks/benefits/alternatives were reviewed re: his current medication (primarily Clozaril) and restart Wellbutrin. Discussion included but was not limited to need for metabolic and TD monitoring. He has no abnormal motor movements at baseline. Reviewed with patient that benzodiazepines are contraindicated in combination with methadone and can result in respiratory depression and even . This discussion around this and his MJ use lasted more than 5 min and constitutes a brief intervention. He was receptive but minimized use. He was made aware of depressant nature of these substances and how can interact with his medications. He is agreeable to continue therapy with [facility]'s methadone program. His dose of methadone was [facility] with [facility] before administered by hospital. 04/24/2021atient is behaviorally appropriate, attending groups and compliant with medications. Mood remains depressed, we will continue current treatment plan 04/25/2021we will increase patient's Wellbutrin to 300 mg p.o. every morning starting tomorrow morning. Inventory Assets Strengths: has been more compliant with outpatient services, maintaining a job Needs: team meeting, antidepressant retrial Risk Factors Assessment Male: Yes : Yes Do You Have Access To A Gun?: No Mental Health Diagnoses: Yes Substance Use Disorders: Yes Previous Attempt: Yes Protective Factors Assessment Employed: Yes ([employer]) Stable Relationships: Yes Good Rapport with Provider: Yes Interval History Chief Complaint "im still down". Review of Systems Sleep Information Total Hours of Sleep: 8 Meal Information Percent Meal Consumed - Breakfast: 100 Percent Meal Consumed - Lunch: 100 Percent Meal Consumed - Dinner: 50 Subjective Subjective Patient seen, chart reviewed and case discussed with treatment team, nursing and social work. Patient reports a good night of sleep and good appetite. No side effects reported or observed. Regarding mood, patient still reports depressed mood with little to no change. Agreeable to increase of wellbutrin XL to target mood symptoms. I spent 30 minutes with the patient, 50% of which was dedicated to counselling and coordination of care. Physical Exam Psychiatric Orientation: alert and oriented x 3 Apperance: appropriately dressed and appropriately groomed Eye Contact: good eye contact Motor Behavior: no abnormal motor movements Affect: + depressed affect Mood: + depressed mood Thought Process: goal directed thought process Thought Content: reality based without delusions Suicidal Thoughts: denies suicidal plan (on unit); + reports suicidal thoughts Homicidal Thoughts: denies homicidal thoughts Hallucinations: no auditory hallucinations and no visual hallucinations Cognition: attention grossly intact and language grossly intact Estimated Intelligence: consistent with education level Insight: + limited insight Judgement: + limited judgement Vital Signs (Past 24 Hours) Last Vital Signs Temp 36.7 C 04/25/21 06:45 Pulse 92 H 04/25/21 06:45 Resp 16 04/25/21 06:45 BP 104/76 04/25/21 06:45 Pulse Ox 97 04/23/21 06:00 Results & Data ([facility]) Current Inpatient Medications Current Inpatient Medications: Current Inpatient Medications Acetaminophen (Acetaminophen 325 Mg Tab) 650 mg PO Q4H PRN PRN Reason: Headache or Minor Fever Stop: 05/22/21 16:11 Al Hydrox/Mg Hydrox/Simethicone (Aluminum/Magnesium Susp 30 Ml Udc) 30 ml PO Q4H PRN PRN Reason: GI Upset Stop: 05/22/21 16:11 Bismuth Subsalicylate (Bismuth Subsalicylate Liqd 236 Ml) 15 ml PO PRN PRN PRN Reason: Loose Stool Stop: 05/22/21 16:11 Bupropion HCl (Bupropion Xl 300 Mg Tabcr) 300 mg PO QAM RAMÓN Stop: 05/26/21 08:59 Clonidine HCl (Clonidine Hcl 0.1 Mg Tab) 0.1 mg PO BID RAMÓN Stop: 05/22/21 20:59 Last Admin: 04/25/21 08:45 Dose: 0.1 mg Documented by: Clozapine (Clozapine 25 Mg Tab) 50 mg PO HS RAMÓN Stop: 05/22/21 20:59 Last Admin: 04/24/21 21:02 Dose: 50 mg Documented by: Hydroxyzine HCl (Hydroxyzine Hcl 25 Mg Tab) 50 mg PO HSZ PRN PRN Reason: Insomnia Stop: 05/22/21 16:11 Hydroxyzine HCl (Hydroxyzine Hcl 25 Mg Tab) 25 mg PO Q4H PRN PRN Reason: Anxiety Stop: 05/22/21 16:11 Magnesium Hydroxide (Magnesium Hydroxide Susp 30 Ml Udc) 30 ml PO DAILY PRN PRN Reason: Constipation Stop: 05/22/21 16:11 Metformin HCl (Metformin Hcl 500 Mg Tab) 500 mg PO BIDM RAMÓN Stop: 05/22/21 18:59 Last Admin: 04/25/21 08:45 Dose: 500 mg Documented by: Methadone HCl (Methadone Oral Soln 2 Mg/Ml) 94 mg PO DAILY RAMÓN Stop: 05/07/21 08:59 Last Admin: 04/25/21 08:46 Dose: 94 mg Documented by: Methadone HCl (Methadone Hcl 10 Mg Tab) 90 mg PO DAILY RAMÓN; Protocol Stop: 04/26/21 09:01 Methadone HCl (Methadone Hcl 5 Mg Tab) 5 mg PO DAILY RAMÓN; Protocol Stop: 04/26/21 09:01 Non-Formulary Medication (Patient's Own Controlled Med) 1 ea PO DAILY RAMÓN Stop: 05/07/21 08:59 Last Admin: 04/25/21 08:46 Dose: Not Given Documented by: Prazosin HCl (Prazosin Hcl 1 Mg Cap) 5 mg PO QPM RAMÓN Stop: 05/22/21 20:59 Last Admin: 04/24/21 21:04 Dose: 5 mg Documented by: Simvastatin (Simvastatin 20 Mg Tab) 20 mg PO QPM RAMÓN Stop: 05/22/21 20:59 Last Admin: 04/24/21 21:01 Dose: 20 mg Documented by: Sodium Chloride (Sodium Chloride 0.65% Na Soln 45 Ml (Saline)) 1 - 2 sprays NA PRN PRN PRN Reason: Nasal Dryness/Congestion Stop: 05/22/21 16:11 Mental Health & Subst Abuse Tx Psychiatrist Name of Psychiatrist: Linda Gonzales PA-C Psychiatrist's Date of Appointment with Psychiatrist: 04/30/21 Time of Appointment with Psychiatrist: 12 p.m. Psychiatric Appointment Comment: [address], [place] [address] Therapist Name of Therapist: . Space Buyer Name of Space Buyer: [employer] - Emily Guzman Phone Number for Space Buyer: [phone] Case Management Appointment Comment: Continue to see per routine - call at any time if/when needed Post Discharge Appointments Primary Care Physician Name Of Family Doctor: Linda Atkinson - Dr. Loyola Primary Care Time of Appointment with PCP: Please follow up as needed Provider Appointment Comment: [address], [place] [address] Glass Etcher Helper Name of Glass Etcher Helper: Yuri Zohu Phone Number of Glass Etcher Helper: [phone] Time of Appointment with Glass Etcher Helper: Continue to see per routine - call at any time if/when needed Glass Etcher Helper Appointment Comment: [address] [facility] [address], [place], [place] Other #1: Name of Aftercare Appointment: [place] [facility] Phone Number of Aftercare Appointment: Time of Aftercare Appointment: Continue to see per routine - call at any time if/when needed Aftercare Appointment Comment: [address], [place] [address] #2: Name of Aftercare Appointment: Magdy Keys - [place] Phone Number of Aftercare Appointment: [phone] Date of Aftercare Appointment: 04/30/21 Time of Aftercare Appointment: 11 a.m. Aftercare Appointment Comment: [address] [place] Contact Information Discharge Discharge Address: [address] [place] [address] [address], [place] [address]
[2021-04-25 15:52] LABS: 7-Aminoclonaz, Confirm NEGATIVE ng/mL (<25); Hydro-Alp Ur, GC/MS 104 ng/mL (<25); Hydroxyethylflurazepam, Conf NEGATIVE ng/mL (<50); Hydroxymidazolam Ur, GC/MS NEGATIVE ng/mL (<50); Hydroxytriazolam NEGATIVE ng/mL (<50); Lorazepam, Ur GC/MS NEGATIVE ng/mL (<50); Marijuana Quant, GCMS Urine 1760 ng/mL (<5); Methadone, Ur Metabolite >10000 ng/mL (<100); Nordiazepam, Confirm NEGATIVE ng/mL (<50); Oxazepam Ur, GC/MS NEGATIVE ng/mL (<50); Temazepam, Confirm NEGATIVE ng/mL (<50)
[2021-04-25] MEDS: PRAZOSIN HCL 1 MG CAP PO SCH (22:03)
[2021-04-25] MEDS: cloZAPine 25 MG TAB PO SCH (22:05)
[2021-04-25] MEDS: SIMVASTATIN 20 MG TAB PO SCH (22:05)
[2021-04-26] MEDS: buPROPion XL 300 MG TABCR PO SCH (08:51)
[2021-04-26] MEDS: cloNIDine HCL 0.1 MG TAB PO SCH ×2 (08:51→20:49)
[2021-04-26] MEDS: metFORMIN HCL 500 MG TAB PO SCH ×2 (08:54→17:43)
[2021-04-26] MEDS ORDERED: METHADONE HCL 5 MG TAB PO SCH (09:00)
[2021-04-26] MEDS ORDERED: METHADONE HCL 10 MG TAB PO SCH (09:00)
--- NOTE | 2021-04-26 14:09 | Psychiatric Progress Note ---
Date of Service April 26, 2021 Impression / Recommendations Impression 40 yo male with a history of substance induced psychosis and recurrent depression with remote suicide attempt but multiple inpatient hospitalizations presents with worsening depression, SI with plan, despite extensive community supports. Presentation this hospitalization is dramatically different from previous as he is not using meth. (1) Schizoaffective disorder, depressive type: (2) Long-term current use of methadone for opiate dependence: (3) Testosterone deficiency in male: 04/23/21--The patient was admitted to the [facility] on q15 min checks (behavioral with suicide precautions) for safety. The patient will participate in group, recreational, and milieu therapies and will be offered additional individual and family sessions as clinically appropriate. Valeria Pascal PA-C was contacted to coordinate care with [facility] team and to discuss medication options as would benefit from an antidepressant (provided med hx above) with past clear response to Wellbutrin. She feels strongly that low T is contributing to his anxiety and depression. He has received 1 injection under direction of Dr. Loyola but insurance requires 3 blood draws to authorize. Will repeat #2 here with his am fasting metabolic labs. Risks/benefits/alternatives were reviewed re: his current medication (primarily Clozaril) and restart Wellbutrin. Discussion included but was not limited to need for metabolic and TD monitoring. He has no abnormal motor movements at baseline. Reviewed with patient that benzodiazepines are contraindicated in combination with methadone and can result in respiratory depression and even . This discussion around this and his MJ use lasted more than 5 min and constitutes a brief intervention. He was receptive but minimized use. He was made aware of depressant nature of these substances and how can interact with his medications. He is agreeable to continue therapy with [facility]'s methadone program. His dose of methadone was [facility] with [facility] before administered by hospital. 04/24/2021atient is behaviorally appropriate, attending groups and compliant with medications. Mood remains depressed, we will continue current treatment plan 04/25/2021we will increase patient's Wellbutrin to 300 mg p.o. every morning starting tomorrow morning. 04/26/2021atient tolerating increased dosage of Wellbutrin well. Mood still remains low. Inventory Assets Strengths: has been more compliant with outpatient services, maintaining a job Needs: team meeting, antidepressant retrial Risk Factors Assessment Male: Yes : Yes Do You Have Access To A Gun?: No Mental Health Diagnoses: Yes Substance Use Disorders: Yes Previous Attempt: Yes Protective Factors Assessment Employed: Yes ([employer]) Stable Relationships: Yes Good Rapport with Provider: Yes Interval History Chief Complaint "Good morning". Review of Systems Sleep Information Total Hours of Sleep: 8 Meal Information Percent Meal Consumed - Breakfast: 100 Percent Meal Consumed - Lunch: 50 Percent Meal Consumed - Dinner: 100 Subjective Subjective Patient seen, chart reviewed and case discussed with treatment team, nursing and social work. Patient reports a good night of sleep and strong appetite. No side effects reported or observed. Regarding mood, patient reports some improvement which they attribute to the medications as well as the therapy they have received on the unit. Attending some groups. Overall mood remains quite dysphoric. Testosterone level still pending at this time. I spent 30 minutes with the patient, 50% of which was dedicated to counselling and coordination of care. Physical Exam Psychiatric Orientation: alert and oriented x 3 Apperance: appropriately dressed and appropriately groomed Eye Contact: good eye contact Motor Behavior: no abnormal motor movements Affect: + depressed affect Mood: + depressed mood Thought Process: goal directed thought process Thought Content: reality based without delusions Suicidal Thoughts: denies suicidal plan (on unit); + reports suicidal thoughts Homicidal Thoughts: denies homicidal thoughts Hallucinations: no auditory hallucinations and no visual hallucinations Cognition: attention grossly intact and language grossly intact Estimated Intelligence: consistent with education level Insight: + limited insight Judgement: + limited judgement Vital Signs (Past 24 Hours) Last Vital Signs Temp 36.6 C 04/26/21 06:50 Pulse 89 04/26/21 06:50 Resp 16 04/26/21 06:50 BP 107/70 04/26/21 06:50 Pulse Ox 97 04/23/21 06:00 Results & Data ([facility]) Laboratory Results Laboratory Results - last 24 hr 04/22/21 12:32 U Methadone Metabolites >00064 H Ur Methadone Confirm >99035 H U OH-Alprazolam Confrm 104 H 7-Amino Clonazepam NEGATIVE Ur Nordiazepam Confirm NEGATIVE U OH-ethylflurazepam NEGATIVE U Lorazepam Cnf GC/MS NEGATIVE U Oxazepam Confm GC/MS NEGATIVE Ur Temazepam Confirm NEGATIVE U OH-Triazolam Confirm NEGATIVE U OH-Midazolam Confirm NEGATIVE U Marijuana THC Carboxy 1760 H Drug Screen Comment SEE NOTE Current Inpatient Medications Current Inpatient Medications: Current Inpatient Medications Acetaminophen (Acetaminophen 325 Mg Tab) 650 mg PO Q4H PRN PRN Reason: Headache or Minor Fever Stop: 05/22/21 16:11 Al Hydrox/Mg Hydrox/Simethicone (Aluminum/Magnesium Susp 30 Ml Udc) 30 ml PO Q4H PRN PRN Reason: GI Upset Stop: 05/22/21 16:11 Bismuth Subsalicylate (Bismuth Subsalicylate Liqd 236 Ml) 15 ml PO PRN PRN PRN Reason: Loose Stool Stop: 05/22/21 16:11 Bupropion HCl (Bupropion Xl 300 Mg Tabcr) 300 mg PO QAM RAMÓN Stop: 05/26/21 08:59 Last Admin: 04/26/21 08:51 Dose: 300 mg Documented by: Clonidine HCl (Clonidine Hcl 0.1 Mg Tab) 0.1 mg PO BID RAMÓN Stop: 05/22/21 20:59 Last Admin: 04/26/21 08:51 Dose: 0.1 mg Documented by: Clozapine (Clozapine 25 Mg Tab) 50 mg PO HS RAMÓN Stop: 05/22/21 20:59 Last Admin: 04/25/21 22:05 Dose: 50 mg Documented by: Hydroxyzine HCl (Hydroxyzine Hcl 25 Mg Tab) 50 mg PO HSZ PRN PRN Reason: Insomnia Stop: 05/22/21 16:11 Hydroxyzine HCl (Hydroxyzine Hcl 25 Mg Tab) 25 mg PO Q4H PRN PRN Reason: Anxiety Stop: 05/22/21 16:11 Magnesium Hydroxide (Magnesium Hydroxide Susp 30 Ml Udc) 30 ml PO DAILY PRN PRN Reason: Constipation Stop: 05/22/21 16:11 Metformin HCl (Metformin Hcl 500 Mg Tab) 500 mg PO BIDM RAMÓN Stop: 05/22/21 18:59 Last Admin: 04/26/21 08:54 Dose: 500 mg Documented by: Methadone HCl (Methadone Oral Soln 2 Mg/Ml) 94 mg PO DAILY RAMÓN Stop: 05/07/21 08:59 Last Admin: 04/25/21 08:46 Dose: 94 mg Documented by: Non-Formulary Medication (Patient's Own Controlled Med) 1 ea PO DAILY RAMÓN Stop: 05/07/21 08:59 Last Admin: 04/25/21 08:46 Dose: Not Given Documented by: Prazosin HCl (Prazosin Hcl 1 Mg Cap) 5 mg PO QPM RAMÓN Stop: 05/22/21 20:59 Last Admin: 04/25/21 22:03 Dose: 5 mg Documented by: Simvastatin (Simvastatin 20 Mg Tab) 20 mg PO QPM RAMÓN Stop: 05/22/21 20:59 Last Admin: 04/25/21 22:05 Dose: 20 mg Documented by: Sodium Chloride (Sodium Chloride 0.65% Na Soln 45 Ml ([place])) 1 - 2 sprays NA PRN PRN PRN Reason: Nasal Dryness/Congestion Stop: 05/22/21 16:11 Mental Health & Subst Abuse Tx Psychiatrist Name of Psychiatrist: Linda Gonzales PA-C Psychiatrist's Date of Appointment with Psychiatrist: 04/30/21 Time of Appointment with Psychiatrist: 12 p.m. Psychiatric Appointment Comment: [address] [facility], [place] [address] Therapist Name of Therapist: . Drywall Installer Name of Drywall Installer: [employer] [facility] - Emily Guzman Phone Number for Drywall Installer: [phone] Case Management Appointment Comment: Continue to see per routine - call at any time if/when needed Post Discharge Appointments Primary Care Physician Name Of Family Doctor: Linda Loyola Primary Care Time of Appointment with PCP: Please follow up as needed Provider Appointment Comment: [address] [place] [address] Thread Clipper Name of Thread Clipper: Yuri Zhou Phone Number of Thread Clipper: [phone] Time of Appointment with Thread Clipper: Continue to see per routine - call at any time if/when needed Thread Clipper Appointment Comment: [address], [place], [place] Other #1: Name of Aftercare Appointment: [place] [facility] Phone Number of Aftercare Appointment: Time of Aftercare Appointment: Continue to see per routine - call at any time if/when needed Aftercare Appointment Comment: [address], [place] [address] #2: Name of Aftercare Appointment: Magdy Urrutia Phone Number of Aftercare Appointment: [phone] Date of Aftercare Appointment: 04/30/21 Time of Aftercare Appointment: 11 a.m. Aftercare Appointment Comment: [address] [facility], [place] Contact Information Discharge Discharge Address: [address] [place] [address] [facility] [address], [place] [address]
[2021-04-26] MEDS: PRAZOSIN HCL 1 MG CAP PO SCH (20:49)
[2021-04-26] MEDS: cloZAPine 25 MG TAB PO SCH (20:50)
[2021-04-26] MEDS: SIMVASTATIN 20 MG TAB PO SCH (20:50)
[2021-04-27] MEDS: cloNIDine HCL 0.1 MG TAB PO SCH ×2 (08:44→20:42)
[2021-04-27] MEDS: metFORMIN HCL 500 MG TAB PO SCH ×2 (08:44→17:07)
[2021-04-27] MEDS: buPROPion XL 300 MG TABCR PO SCH (08:44)
[2021-04-27] MEDS ORDERED: buPROPion XL 150 MG TABCR PO SCH (09:15)
[2021-04-27] MEDS ORDERED: buPROPion XL 150 MG TABCR PO ONE (09:19)
--- NOTE | 2021-04-27 10:15 | Psychiatric Progress Note ---
Date of Service April 27, 2021 Impression / Recommendations Impression 40 yo male with a history of substance induced psychosis and recurrent depression with remote suicide attempt but multiple inpatient hospitalizations presents with worsening depression, SI with plan, despite extensive community supports. Presentation this hospitalization is dramatically different from previous as he is not using meth. (1) Schizoaffective disorder, depressive type: (2) Long-term current use of methadone for opiate dependence: (3) Testosterone deficiency in male: 04/23/21--The patient was admitted to the [facility] on q15 min checks (behavioral with suicide precautions) for safety. The patient will participate in group, recreational, and milieu therapies and will be offered additional individual and family sessions as clinically appropriate. Valeria Pascal PA-C was contacted to coordinate care with [facility] team and to discuss medication options as would benefit from an antidepressant (provided med hx above) with past clear response to Wellbutrin. She feels strongly that low T is contributing to his anxiety and depression. He has received 1 injection under direction of Dr. Loyola but insurance requires 3 blood draws to authorize. Will repeat #2 here with his am fasting metabolic labs. Risks/benefits/alternatives were reviewed re: his current medication (primarily Clozaril) and restart Wellbutrin. Discussion included but was not limited to need for metabolic and TD monitoring. He has no abnormal motor movements at baseline. Reviewed with patient that benzodiazepines are contraindicated in combination with methadone and can result in respiratory depression and even . This discussion around this and his MJ use lasted more than 5 min and constitutes a brief intervention. He was receptive but minimized use. He was made aware of depressant nature of these substances and how can interact with his medications. He is agreeable to continue therapy with [facility]'s methadone program. His dose of methadone was confirmed with [facility] before administered by hospital. 04/24/2021atient is behaviorally appropriate, attending groups and compliant with medications. Mood remains depressed, we will continue current treatment plan 04/25/2021we will increase patient's Wellbutrin to 300 mg p.o. every morning starting tomorrow morning. 04/26/2021atient tolerating increased dosage of Wellbutrin well. Mood still remains low. 04/27/2021atient making progress although still feeling depressed. Improved from admission. Inventory Assets Strengths: has been more compliant with outpatient services, maintaining a job Needs: team meeting, antidepressant retrial Risk Factors Assessment Male: Yes : Yes Do You Have Access To A Gun?: No Mental Health Diagnoses: Yes Substance Use Disorders: Yes Previous Attempt: Yes Protective Factors Assessment Employed: Yes ([employer]) Stable Relationships: Yes Good Rapport with Provider: Yes Interval History Chief Complaint "I am okay still feeling down". Review of Systems Sleep Information Total Hours of Sleep: 6 Sleep Comments: pt on q-15 miinute checks Meal Information Percent Meal Consumed - Breakfast: 50 Percent Meal Consumed - Lunch: 50 Percent Meal Consumed - Dinner: 50 Subjective Subjective Patient seen, chart reviewed and case discussed with treatment team, nursing and social work. Patient reports a good night of sleep and strong appetite. No side effects reported or observed. Regarding mood, patient reports some improvement which they attribute to the medications as well as the therapy they have received on the unit. Denies side effects from increased dose of Wellbutrin, agreeable to continue increasing dose to a target of 450 mg. I spent 30 minutes with the patient, 50% of which was dedicated to counselling and coordination of care. Physical Exam Psychiatric Orientation: alert and oriented x 3 Apperance: appropriately dressed and appropriately groomed Eye Contact: good eye contact Motor Behavior: no abnormal motor movements Affect: + depressed affect Mood: + depressed mood Thought Process: goal directed thought process Thought Content: reality based without delusions Suicidal Thoughts: denies suicidal plan (on unit); + reports suicidal thoughts Homicidal Thoughts: denies homicidal thoughts Hallucinations: no auditory hallucinations and no visual hallucinations Cognition: attention grossly intact and language grossly intact Estimated Intelligence: consistent with education level Insight: + limited insight Judgement: + limited judgement Vital Signs (Past 24 Hours) Last Vital Signs Temp 36.6 C 04/27/21 06:45 Pulse 77 04/27/21 06:45 Resp 16 04/27/21 06:45 BP 97/66 L 04/27/21 06:45 Pulse Ox 97 04/23/21 06:00 Results & Data ([facility]) Current Inpatient Medications Current Inpatient Medications: Current Inpatient Medications Acetaminophen (Acetaminophen 325 Mg Tab) 650 mg PO Q4H PRN PRN Reason: Headache or Minor Fever Stop: 05/22/21 16:11 Al Hydrox/Mg Hydrox/Simethicone (Aluminum/Magnesium Susp 30 Ml Udc) 30 ml PO Q4H PRN PRN Reason: GI Upset Stop: 05/22/21 16:11 Bismuth Subsalicylate (Bismuth Subsalicylate Liqd 236 Ml) 15 ml PO PRN PRN PRN Reason: Loose Stool Stop: 05/22/21 16:11 Bupropion HCl (Bupropion Xl 150 Mg Tabcr) 450 mg PO QAM RAMÓN Stop: 05/28/21 08:59 Clonidine HCl (Clonidine Hcl 0.1 Mg Tab) 0.1 mg PO BID RAMÓN Stop: 05/22/21 20:59 Last Admin: 04/27/21 08:44 Dose: 0.1 mg Documented by: Clozapine (Clozapine 25 Mg Tab) 50 mg PO HS RAMÓN Stop: 05/22/21 20:59 Last Admin: 04/26/21 20:50 Dose: 50 mg Documented by: Hydroxyzine HCl (Hydroxyzine Hcl 25 Mg Tab) 50 mg PO HSZ PRN PRN Reason: Insomnia Stop: 05/22/21 16:11 Hydroxyzine HCl (Hydroxyzine Hcl 25 Mg Tab) 25 mg PO Q4H PRN PRN Reason: Anxiety Stop: 05/22/21 16:11 Magnesium Hydroxide (Magnesium Hydroxide Susp 30 Ml Udc) 30 ml PO DAILY PRN PRN Reason: Constipation Stop: 05/22/21 16:11 Metformin HCl (Metformin Hcl 500 Mg Tab) 500 mg PO BIDM RAMÓN Stop: 05/22/21 18:59 Last Admin: 04/27/21 08:44 Dose: 500 mg Documented by: Methadone HCl (Methadone Oral Soln 2 Mg/Ml) 94 mg PO DAILY RAMÓN Stop: 05/07/21 08:59 Last Admin: 04/25/21 08:46 Dose: 94 mg Documented by: Non-Formulary Medication (Patient's Own Controlled Med) 1 ea PO DAILY RAMÓN Stop: 05/07/21 08:59 Last Admin: 04/25/21 08:46 Dose: Not Given Documented by: Prazosin HCl (Prazosin Hcl 1 Mg Cap) 5 mg PO QPM RAMÓN Stop: 05/22/21 20:59 Last Admin: 04/26/21 20:49 Dose: 5 mg Documented by: Simvastatin (Simvastatin 20 Mg Tab) 20 mg PO QPM RAMÓN Stop: 05/22/21 20:59 Last Admin: 04/26/21 20:50 Dose: 20 mg Documented by: Sodium Chloride (Sodium Chloride 0.65% Na Soln 45 Ml ([place])) 1 - 2 sprays NA PRN PRN PRN Reason: Nasal Dryness/Congestion Stop: 05/22/21 16:11 Mental Health & Subst Abuse Tx Psychiatrist Name of Psychiatrist: Linda Gonzales PA-C Psychiatrist's Date of Appointment with Psychiatrist: 04/30/21 Time of Appointment with Psychiatrist: 12 p.m. Psychiatric Appointment Comment: [address] [place] [address] Therapist Name of Therapist: . Formula Maker Name of Formula Maker: [facility] - Emily Thomas Phone Number for Formula Maker: [phone] Case Management Appointment Comment: Continue to see per routine - call at any time if/when needed Post Discharge Appointments Primary Care Physician Name Of Family Doctor: Linda Loyola Primary Care Time of Appointment with PCP: Please follow up as needed Provider Appointment Comment: [address] [place] [address] Golf Range Attendant Name of Golf Range Attendant: Yuri Zhou Phone Number of Golf Range Attendant: [phone] Time of Appointment with Golf Range Attendant: Continue to see per routine - call at any time if/when needed Golf Range Attendant Appointment Comment: [address] [facility] [address], [place], [place] Other #1: Name of Aftercare Appointment: [place] [facility] Phone Number of Aftercare Appointment: Time of Aftercare Appointment: Continue to see per routine - call at any time if/when needed Aftercare Appointment Comment: [address], [place] [address] #2: Name of Aftercare Appointment: Magdy Keys - [place] Phone Number of Aftercare Appointment: [phone] Date of Aftercare Appointment: 04/30/21 Time of Aftercare Appointment: 11 a.m. Aftercare Appointment Comment: [address] [facility] #3: Name of Aftercare Appointment: Linda Atkinson - Next Injection Phone Number of Aftercare Appointment: [phone] Date of Aftercare Appointment: 04/30/21 Time of Aftercare Appointment: 9:30 a.m. Aftercare Appointment Comment: [address] [facility] [place] Contact Information Discharge Discharge Address: [address] [place] [address], [address], [place] [address]
[2021-04-27] MEDS: METHADONE ORAL SOLN 2 MG/ML PO SCH (11:40)
[2021-04-27] MEDS: PATIENT'S OWN CONTROLLED MED 2 PO SCH (11:41)
[2021-04-27] MEDS: cloZAPine 25 MG TAB PO SCH (20:41)
[2021-04-27] MEDS: PRAZOSIN HCL 1 MG CAP PO SCH (20:42)
[2021-04-27] MEDS: SIMVASTATIN 20 MG TAB PO SCH (20:42)
[2021-04-28] MEDS: cloNIDine HCL 0.1 MG TAB PO SCH ×2 (09:30→21:13)
[2021-04-28] MEDS: buPROPion XL 150 MG TABCR PO SCH (09:30)
[2021-04-28] MEDS: metFORMIN HCL 500 MG TAB PO SCH ×2 (09:30→17:34)
[2021-04-28] MEDS: METHADONE ORAL SOLN 2 MG/ML PO SCH (09:30)
[2021-04-28] MEDS: PATIENT'S OWN CONTROLLED MED 2 PO SCH (09:34)
--- NOTE | 2021-04-28 15:22 | Psychiatric Progress Note ---
Date of Service April 28, 2021 Impression / Recommendations Impression 40 yo male with a history of substance induced psychosis and recurrent depression with remote suicide attempt but multiple inpatient hospitalizations presents with worsening depression, SI with plan, despite extensive community supports. Presentation this hospitalization is dramatically different from previous as he is not using meth. (1) Schizoaffective disorder, depressive type: (2) Long-term current use of methadone for opiate dependence: (3) Testosterone deficiency in male: 04/23/21--The patient was admitted to the [facility] ([facility] mental health unit) on q15 min checks (behavioral with suicide precautions) for safety. The patient will participate in group, recreational, and milieu therapies and will be offered additional individual and family sessions as clinically appropriate. Valeria Pascal PA-C was contacted to coordinate care with [facility] team and to discuss medication options as would benefit from an antidepressant (provided med hx above) with past clear response to Wellbutrin. She feels strongly that low T is contributing to his anxiety and depression. He has received 1 injection under direction of Dr. Loyola but insurance requires 3 blood draws to authorize. Will repeat #2 here with his am fasting metabolic labs. Risks/benefits/alternatives were reviewed re: his current medication (primarily Clozaril) and restart Wellbutrin. Discussion included but was not limited to need for metabolic and TD monitoring. He has no abnormal motor movements at baseline. Reviewed with patient that benzodiazepines are contraindicated in combination with methadone and can result in respiratory depression and even . This discussion around this and his MJ use lasted more than 5 min and constitutes a brief intervention. He was receptive but minimized use. He was made aware of depressant nature of these substances and how can interact with his medications. He is agreeable to continue therapy with [facility]'s methadone program. His dose of methadone was confirmed with [facility] before administered by hospital. 04/24/2021atient is behaviorally appropriate, attending groups and compliant with medications. Mood remains depressed, we will continue current treatment plan 04/25/2021we will increase patient's Wellbutrin to 300 mg p.o. every morning starting tomorrow morning. 04/26/2021atient tolerating increased dosage of Wellbutrin well. Mood still remains low. 04/27/2021atient making progress although still feeling depressed. Improved from admission. 9/8/2021patient still reporting low mood, compliant with medications and appropriate with peers. We will continue current regimen for now. Inventory Assets Strengths: has been more compliant with outpatient services, maintaining a job Needs: team meeting, antidepressant retrial Risk Factors Assessment Male: Yes : Yes Do You Have Access To A Gun?: No Mental Health Diagnoses: Yes Substance Use Disorders: Yes Previous Attempt: Yes Protective Factors Assessment Employed: Yes ([employer]) Stable Relationships: Yes Good Rapport with Provider: Yes Interval History Chief Complaint "I am still not feeling so good man". Review of Systems Sleep Information Total Hours of Sleep: 7.5 Sleep Comments: pt on q-15 miinute checks Meal Information Percent Meal Consumed - Breakfast: 15 Percent Meal Consumed - Lunch: 50 Percent Meal Consumed - Dinner: 75 Subjective Subjective Patient seen, chart reviewed and case discussed with treatment team, nursing and social work. Patient reports a good night of sleep and decent appetite. No side effects reported or observed. Regarding mood, patient reports minimal improvement. He does state that he feels that the groups are helping him to process some of his traumas as well as to start to feel better, but he is still reporting little to no benefit from the medication in terms of helping his mood. He is encouraged to let the medication run its course and give it time to work. He was also informed that he is facing numerous other challenges with regards to treating his depression including battling low testosterone, as well as chronic methadone use. Patient expressed understanding and agreement and is thankful for the care he has been receiving here. I spent 30 minutes with the patient, 50% of which was dedicated to counselling and coordination of care. Physical Exam Psychiatric Orientation: alert and oriented x 3 Apperance: appropriately dressed and appropriately groomed Eye Contact: good eye contact Motor Behavior: no abnormal motor movements Affect: + depressed affect Mood: + depressed mood Thought Process: goal directed thought process Thought Content: reality based without delusions Suicidal Thoughts: denies suicidal plan (on unit); + reports suicidal thoughts Homicidal Thoughts: denies homicidal thoughts Hallucinations: no auditory hallucinations and no visual hallucinations Cognition: attention grossly intact and language grossly intact Estimated Intelligence: consistent with education level Insight: + limited insight Judgement: + limited judgement Vital Signs (Past 24 Hours) Last Vital Signs Temp 36.6 C 04/28/21 06:59 Pulse 105 H 04/28/21 08:42 Resp 18 04/28/21 06:59 BP 129/82 04/28/21 08:42 Pulse Ox 97 04/23/21 06:00 Results & Data ([facility]) Current Inpatient Medications Current Inpatient Medications: Current Inpatient Medications Acetaminophen (Acetaminophen 325 Mg Tab) 650 mg PO Q4H PRN PRN Reason: Headache or Minor Fever Stop: 05/22/21 16:11 Al Hydrox/Mg Hydrox/Simethicone (Aluminum/Magnesium Susp 30 Ml Udc) 30 ml PO Q4H PRN PRN Reason: GI Upset Stop: 05/22/21 16:11 Bismuth Subsalicylate (Bismuth Subsalicylate Liqd 236 Ml) 15 ml PO PRN PRN PRN Reason: Loose Stool Stop: 05/22/21 16:11 Bupropion HCl (Bupropion Xl 150 Mg Tabcr) 450 mg PO QAM RAMÓN Stop: 05/28/21 08:59 Last Admin: 04/28/21 09:30 Dose: 450 mg Documented by: Clonidine HCl (Clonidine Hcl 0.1 Mg Tab) 0.1 mg PO BID RAMÓN Stop: 05/22/21 20:59 Last Admin: 04/28/21 09:30 Dose: 0.1 mg Documented by: Clozapine (Clozapine 25 Mg Tab) 50 mg PO HS RAMÓN Stop: 05/22/21 20:59 Last Admin: 04/27/21 20:41 Dose: 50 mg Documented by: Hydroxyzine HCl (Hydroxyzine Hcl 25 Mg Tab) 50 mg PO HSZ PRN PRN Reason: Insomnia Stop: 05/22/21 16:11 Hydroxyzine HCl (Hydroxyzine Hcl 25 Mg Tab) 25 mg PO Q4H PRN PRN Reason: Anxiety Stop: 05/22/21 16:11 Magnesium Hydroxide (Magnesium Hydroxide Susp 30 Ml Udc) 30 ml PO DAILY PRN PRN Reason: Constipation Stop: 05/22/21 16:11 Metformin HCl (Metformin Hcl 500 Mg Tab) 500 mg PO BIDM RAMÓN Stop: 05/22/21 18:59 Last Admin: 04/28/21 09:30 Dose: 500 mg Documented by: Methadone HCl (Methadone Oral Soln 2 Mg/Ml) 94 mg PO DAILY RAMÓN Stop: 05/07/21 08:59 Last Admin: 04/28/21 09:30 Dose: 94 mg Documented by: Non-Formulary Medication (Patient's Own Controlled Med) 1 ea PO DAILY RAMÓN Stop: 05/07/21 08:59 Last Admin: 04/28/21 09:34 Dose: Not Given Documented by: Prazosin HCl (Prazosin Hcl 1 Mg Cap) 5 mg PO QPM RAMÓN Stop: 05/22/21 20:59 Last Admin: 04/27/21 20:42 Dose: 5 mg Documented by: Simvastatin (Simvastatin 20 Mg Tab) 20 mg PO QPM RAMÓN Stop: 05/22/21 20:59 Last Admin: 04/27/21 20:42 Dose: 20 mg Documented by: Sodium Chloride (Sodium Chloride 0.65% Na Soln 45 Ml ([place])) 1 - 2 sprays NA PRN PRN PRN Reason: Nasal Dryness/Congestion Stop: 05/22/21 16:11 Mental Health & Subst Abuse Tx Psychiatrist Name of Psychiatrist: Linda Gonzales PA-C Psychiatrist's Date of Appointment with Psychiatrist: 04/30/21 Time of Appointment with Psychiatrist: 12 p.m. Psychiatric Appointment Comment: [address] [facility] [place] [address] Therapist Name of Therapist: . Hand Welt Butter Name of Hand Welt Butter: [facility] - Emily Guzman Phone Number for Hand Welt Butter: [phone] Case Management Appointment Comment: Continue to see per routine - call at any time if/when needed Post Discharge Appointments Primary Care Physician Name Of Family Doctor: Linda Loyola Primary [facility] Time of Appointment with PCP: Please follow up as needed Provider Appointment Comment: [address] [facility] [place] [address] Hoop Flaring Machine Operator Name of Hoop Flaring Machine Operator: Yuri Zhou Phone Number of Hoop Flaring Machine Operator: [phone] Time of Appointment with Hoop Flaring Machine Operator: Continue to see per routine - call at any time if/when needed Hoop Flaring Machine Operator Appointment Comment: [address], [place], [place] Other #1: Name of Aftercare Appointment: [place] [facility] Phone Number of Aftercare Appointment: Time of Aftercare Appointment: Continue to see per routine - call at any time if/when needed Aftercare Appointment Comment: [address], [place] [address] #2: Name of Aftercare Appointment: [facility] Phone Number of Aftercare Appointment: [phone] Date of Aftercare Appointment: 04/30/21 Time of Aftercare Appointment: 11 a.m. Aftercare Appointment Comment: [facility] #3: Name of Aftercare Appointment: [facility] Phone Number of Aftercare Appointment: [phone] Date of Aftercare Appointment: 04/30/21 Time of Aftercare Appointment: 9:30 a.m. Aftercare Appointment [facility] Contact Information Discharge Discharge Address: [address] [place] [address], [address], [place] [address]
[2021-04-28] MEDS: cloZAPine 25 MG TAB PO SCH (21:13)
[2021-04-28] MEDS: SIMVASTATIN 20 MG TAB PO SCH (21:13)
[2021-04-28] MEDS: PRAZOSIN HCL 1 MG CAP PO SCH (21:13)
[2021-04-28 22:47] LABS: Testosterone Free 162.8 pg/mL (35.0-155.0)
[2021-04-29 08:08] LABS: Basophils # (auto) 0.08 K/uL (0-0.2); Basophils % (auto) 0.8 %; Eosinophils # (auto) 0.27 K/uL (0-0.5); Eosinophils % (auto) 2.6 %; Hematocrit (blood only) 47.5 % (42-52); Immature Granulocytes # (auto) 0.11 K/uL (0.00-0.02); Lymphocytes # (auto) 4.37 K/uL (1.2-3.4); Lymphocytes % (auto) 41.3 %; Mean Corpuscular Hemoglobin 31.7 pg (25-34); Mean Corpuscular Hgb Conc 33.7 g/dL (32-36); Mean Corpuscular Volume 94.2 fL (80-100); Mean Platelet Volume 9.5 fL (7.4-10.4); Monocytes # (auto) 1.09 K/uL (0.11-0.59); Monocytes % (auto) 10.3 %; Neutrophils # (auto) 4.65 K/uL (1.4-6.5); Platelet Count 244 K/uL (130-400); RDW Coefficient of Variation 14.1 % (11.5-14.5); Red Blood Count 5.04 M/uL (4.7-6.1); White Blood Count 10.57 K/uL (4.8-10.8)
[2021-04-29] MEDS: buPROPion XL 150 MG TABCR PO SCH (09:13)
[2021-04-29] MEDS: cloNIDine HCL 0.1 MG TAB PO SCH ×2 (09:13→20:38)
[2021-04-29] MEDS: METHADONE ORAL SOLN 2 MG/ML PO SCH (09:14)
[2021-04-29] MEDS: metFORMIN HCL 500 MG TAB PO SCH ×2 (09:14→17:25)
[2021-04-29] MEDS: PATIENT'S OWN CONTROLLED MED 2 PO SCH (09:32)
--- NOTE | 2021-04-29 16:34 | Psychiatric Progress Note ---
Date of Service April 29, 2021 Impression / Recommendations Impression 40 yo male with a history of substance induced psychosis and recurrent depression with remote suicide attempt but multiple inpatient hospitalizations presents with worsening depression, SI with plan, despite extensive community supports. Presentation this hospitalization is dramatically different from previous as he is not using meth. (1) Schizoaffective disorder, depressive type: (2) Long-term current use of methadone for opiate dependence: (3) Testosterone deficiency in male: 04/23/21--The patient was admitted to the [facility] ([facility] mental health unit) on q15 min checks (behavioral with suicide precautions) for safety. The patient will participate in group, recreational, and milieu therapies and will be offered additional individual and family sessions as clinically appropriate. Valeria Pascal PA-C was contacted to coordinate care with [facility] team and to discuss medication options as would benefit from an antidepressant (provided med hx above) with past clear response to Wellbutrin. She feels strongly that low T is contributing to his anxiety and depression. He has received 1 injection under direction of Dr. Loyola but insurance requires 3 blood draws to authorize. Will repeat #2 here with his am fasting metabolic labs. Risks/benefits/alternatives were reviewed re: his current medication (primarily Clozaril) and restart Wellbutrin. Discussion included but was not limited to need for metabolic and TD monitoring. He has no abnormal motor movements at baseline. Reviewed with patient that benzodiazepines are contraindicated in combination with methadone and can result in respiratory depression and even . This discussion around this and his MJ use lasted more than 5 min and constitutes a brief intervention. He was receptive but minimized use. He was made aware of depressant nature of these substances and how can interact with his medications. He is agreeable to continue therapy with [facility]'s methadone program. His dose of methadone was confirmed with [facility] before administered by hospital. 04/24/2021atient is behaviorally appropriate, attending groups and compliant with medications. Mood remains depressed, we will continue current treatment plan 04/25/2021we will increase patient's Wellbutrin to 300 mg p.o. every morning starting tomorrow morning. 04/26/2021atient tolerating increased dosage of Wellbutrin well. Mood still remains low. 04/27/2021atient making progress although still feeling depressed. Improved from admission. 9/8/2021patient still reporting low mood, compliant with medications and appropriate with peers. We will continue current regimen for now. continue current regimen for now. Patient still with low dysphoric mood. Inventory Assets Strengths: has been more compliant with outpatient services, maintaining a job Needs: team meeting, antidepressant retrial Risk Factors Assessment Male: Yes : Yes Do You Have Access To A Gun?: No Mental Health Diagnoses: Yes Substance Use Disorders: Yes Previous Attempt: Yes Protective Factors Assessment Employed: Yes ([employer]) Stable Relationships: Yes Good Rapport with Provider: Yes Interval History Chief Complaint "I am just not ready". Review of Systems Sleep Information Total Hours of Sleep: 8 Sleep Comments: pt on q-15 miinute checks Meal Information Percent Meal Consumed - Breakfast: 25 Percent Meal Consumed - Lunch: 100 Percent Meal Consumed - Dinner: 25 Subjective Subjective Patient was seen & assessed and interval progress reviewed with treatment team nursing and social work. Patient continues to have dysphoric mood. States that he is unable to feel safe outside of the hospital. At this time it was agreed with patient that we will continue to provide treatment here and attempts to lift his mood and allow him to feel safe leaving the hospital. No side effects of medications reported or observed. Patient is sleeping well, and eating fine. Attending groups although at times minimally interactive. He reports a positive experience from the groups. Testosterone levels did come back although according to laboratory results they appear to be within normal range. I spent 30 minutes with the patient, 50% of which was dedicated to counselling and coordination of care. Physical Exam Psychiatric Orientation: alert and oriented x 3 Apperance: appropriately dressed and appropriately groomed Eye Contact: good eye contact Motor Behavior: no abnormal motor movements Affect: + depressed affect Mood: + depressed mood Thought Process: goal directed thought process Thought Content: reality based without delusions Suicidal Thoughts: denies suicidal plan (on unit); + reports suicidal thoughts Homicidal Thoughts: denies homicidal thoughts Hallucinations: no auditory hallucinations and no visual hallucinations Cognition: attention grossly intact and language grossly intact Estimated Intelligence: consistent with education level Insight: + limited insight Judgement: + limited judgement Vital Signs (Past 24 Hours) Last Vital Signs Temp 36.6 C 04/29/21 06:00 Pulse 98 H 04/29/21 06:27 Resp 16 04/29/21 06:00 BP 109/70 04/29/21 06:27 Pulse Ox 97 04/23/21 06:00 Results & Data ([facility]) Laboratory Results Laboratory Results - last 24 hr 04/24/21 04/29/21 08:36 07:54 WBC 10.57 RBC 5.04 Hgb 16.0 Hct 47.5 MCV 94.2 MCH 31.7 MCHC 33.7 RDW Std Deviation 48.0 H RDW Coeff of Sunshine 14.1 Plt Count 244 MPV 9.5 Immature Gran % (Auto) 1.0 Neut % (Auto) 44.0 Lymph % (Auto) 41.3 Miner % (Auto) 10.3 Eos % (Auto) 2.6 Baso % (Auto) 0.8 Neut # (Auto) 4.65 Lymph # (Auto) 4.37 H Miner # (Auto) 1.09 H Eos # (Auto) 0.27 Baso # (Auto) 0.08 Immature Gran # (Auto) 0.11 H Total Testosterone 1078 Free Testosterone 162.8 H Current Inpatient Medications Current Inpatient Medications: Current Inpatient Medications Acetaminophen (Acetaminophen 325 Mg Tab) 650 mg PO Q4H PRN PRN Reason: Headache or Minor Fever Stop: 05/22/21 16:11 Al Hydrox/Mg Hydrox/Simethicone (Aluminum/Magnesium Susp 30 Ml Udc) 30 ml PO Q4H PRN PRN Reason: GI Upset Stop: 05/22/21 16:11 Bismuth Subsalicylate (Bismuth Subsalicylate Liqd 236 Ml) 15 ml PO PRN PRN PRN Reason: Loose Stool Stop: 05/22/21 16:11 Bupropion HCl (Bupropion Xl 150 Mg Tabcr) 450 mg PO QAM RAMÓN Stop: 05/28/21 08:59 Last Admin: 04/29/21 09:13 Dose: 450 mg Documented by: Clonidine HCl (Clonidine Hcl 0.1 Mg Tab) 0.1 mg PO BID RAMÓN Stop: 05/22/21 20:59 Last Admin: 04/29/21 09:13 Dose: 0.1 mg Documented by: Clozapine (Clozapine 25 Mg Tab) 50 mg PO HS RAMÓN Stop: 05/22/21 20:59 Last Admin: 04/28/21 21:13 Dose: 50 mg Documented by: Hydroxyzine HCl (Hydroxyzine Hcl 25 Mg Tab) 50 mg PO HSZ PRN PRN Reason: Insomnia Stop: 05/22/21 16:11 Hydroxyzine HCl (Hydroxyzine Hcl 25 Mg Tab) 25 mg PO Q4H PRN PRN Reason: Anxiety Stop: 05/22/21 16:11 Magnesium Hydroxide (Magnesium Hydroxide Susp 30 Ml Udc) 30 ml PO DAILY PRN PRN Reason: Constipation Stop: 05/22/21 16:11 Metformin HCl (Metformin Hcl 500 Mg Tab) 500 mg PO BIDM RAMÓN Stop: 05/22/21 18:59 Last Admin: 04/29/21 09:14 Dose: 500 mg Documented by: Methadone HCl (Methadone Oral Soln 2 Mg/Ml) 94 mg PO DAILY RAMÓN Stop: 05/07/21 08:59 Last Admin: 04/29/21 09:14 Dose: 94 mg Documented by: Non-Formulary Medication (Patient's Own Controlled Med) 1 ea PO DAILY RAMÓN Stop: 05/07/21 08:59 Last Admin: 04/29/21 09:32 Dose: Not Given Documented by: Prazosin HCl (Prazosin Hcl 1 Mg Cap) 5 mg PO QPM RAMÓN Stop: 05/22/21 20:59 Last Admin: 04/28/21 21:13 Dose: 5 mg Documented by: Simvastatin (Simvastatin 20 Mg Tab) 20 mg PO QPM RAMÓN Stop: 05/22/21 20:59 Last Admin: 04/28/21 21:13 Dose: 20 mg Documented by: Sodium Chloride (Sodium Chloride 0.65% Na Soln 45 Ml ([place])) 1 - 2 sprays NA PRN PRN PRN Reason: Nasal Dryness/Congestion Stop: 05/22/21 16:11 Mental Health & Subst Abuse Tx Psychiatrist Name of Psychiatrist: Linda Gonzales PA-C Psychiatrist's Date of Appointment with Psychiatrist: 04/30/21 Time of Appointment with Psychiatrist: 12 p.m. Psychiatric Appointment Comment: [address] [place] [address] Therapist Name of Therapist: . Bottle Capping Machine Operator Name of Bottle Capping Machine Operator: [facility] Emily Guzman Phone Number for Bottle Capping Machine Operator: [phone] Case Management Appointment Comment: Continue to see per routine - call at any time if/when needed Post Discharge Appointments Primary Care Physician Name Of Family Doctor: Linda Lance Dr. Shippert Primary [facility] Time of Appointment with PCP: Please follow up as needed Provider Appointment Comment: [address], [place] [address] Clinical Laboratory Aides Teacher Name of Clinical Laboratory Aides Teacher: Yuri Zhou Phone Number of Clinical Laboratory Aides Teacher: [phone] Time of Appointment with Clinical Laboratory Aides Teacher: Continue to see per routine - call at any time if/when needed Clinical Laboratory Aides Teacher Appointment Comment: [address] [facility] [address], [place], [place] Other #1: Name of Aftercare Appointment: [place] [facility] Phone Number of Aftercare Appointment: Time of Aftercare Appointment: Continue to see per routine - call at any time if/when needed Aftercare Appointment Comment: [address], [place] [address] #2: Name of Aftercare Appointment: [facility] Phone Number of Aftercare Appointment: [phone] Date of Aftercare Appointment: 04/30/21 Time of Aftercare Appointment: 11 a.m. Aftercare Appointment Comment: [address] [place] #3: Name of Aftercare Appointment: [facility] Phone Number of Aftercare Appointment: [phone] Date of Aftercare Appointment: 04/30/21 Time of Aftercare Appointment: 9:30 a.m. Aftercare Appointment Comment: Winifred Correa [place] Contact Information Discharge Discharge Address: [address] [place] [address] [address], [place] [address]
[2021-04-29] MEDS: cloZAPine 25 MG TAB PO SCH (20:37)
[2021-04-29] MEDS: PRAZOSIN HCL 1 MG CAP PO SCH (20:38)
[2021-04-29] MEDS: SIMVASTATIN 20 MG TAB PO SCH (20:38)
[2021-04-30] MEDS: buPROPion XL 150 MG TABCR PO SCH (09:05)
[2021-04-30] MEDS: METHADONE ORAL SOLN 2 MG/ML PO SCH (09:06)
[2021-04-30] MEDS: cloNIDine HCL 0.1 MG TAB PO SCH ×2 (10:07→20:49)
[2021-04-30] MEDS: PATIENT'S OWN CONTROLLED MED 2 PO SCH (10:07)
[2021-04-30] MEDS: metFORMIN HCL 500 MG TAB PO SCH ×2 (10:08→17:32)
--- NOTE | 2021-04-30 15:08 | Psychiatric Progress Note ---
Date of Service April 30, 2021 Impression / Recommendations Impression 40 yo male with a history of substance induced psychosis and recurrent depression with remote suicide attempt but multiple inpatient hospitalizations presents with worsening depression, SI with plan, despite extensive community supports. Presentation this hospitalization is dramatically different from previous as he is not using meth. (1) Schizoaffective disorder, depressive type: (2) Long-term current use of methadone for opiate dependence: (3) Testosterone deficiency in male: 04/23/21--[facility] on q15 min checks (behavioral with suicide precautions) for safety. The patient will participate in group, recreational, and milieu therapies and will be offered additional individual and family sessions as clinically appropriate. Valeria Pascal PA-C was contacted to coordinate care with [facility] team and to discuss medication options as would benefit from an antidepressant (provided med hx above) with past clear response to Wellbutrin. She feels strongly that low T is contributing to his anxiety and depression. He has received 1 injection under direction of Dr. Loyola but insurance requires 3 blood draws to authorize. Will repeat #2 here with his am fasting metabolic labs. Risks/benefits/alternatives were reviewed re: his current medication (primarily Clozaril) and restart Wellbutrin. Discussion included but was not limited to need for metabolic and TD monitoring. He has no abnormal motor movements at baseline. Reviewed with patient that benzodiazepines are contraindicated in combination with methadone and can result in respiratory depression and even . This discussion around this and his MJ use lasted more than 5 min and constitutes a brief intervention. He was receptive but minimized use. He was made aware of depressant nature of these substances and how can interact with his medications. He is agreeable to continue therapy with [facility]'s methadone program. His dose of methadone was confirmed with [facility] before administered by hospital. 04/24/2021atient is behaviorally appropriate, attending groups and compliant with medications. Mood remains depressed, we will continue current treatment plan 04/25/2021we will increase patient's Wellbutrin to 300 mg p.o. every morning starting tomorrow morning. 04/26/2021atient tolerating increased dosage of Wellbutrin well. Mood still remains low. 04/27/2021atient making progress although still feeling depressed. Improved from admission. 04/28/2021atient still reporting low mood, compliant with medications and appropriate with peers. We will continue current regimen for now. 04/29/2021ontinue current regimen for now. Patient still with low dysphoric mood. 04/30/2021--continue current regimen, patient appears to have minimal improvement with Wellbutrin regimen thus far. Will continue for a couple more days before reassessing efficacy Inventory Assets Strengths: has been more compliant with outpatient services, maintaining a job Needs: team meeting, antidepressant retrial Risk Factors Assessment Male: Yes : Yes Do You Have Access To A Gun?: No Mental Health Diagnoses: Yes Substance Use Disorders: Yes Previous Attempt: Yes Protective Factors Assessment Employed: Yes ([employer]) Stable Relationships: Yes Good Rapport with Provider: Yes Interval History Chief Complaint "Thank you for everything". Review of Systems Sleep Information Total Hours of Sleep: 8 Sleep Comments: pt on q-15 miinute checks Meal Information Percent Meal Consumed - Breakfast: 100 Percent Meal Consumed - Lunch: 90 Percent Meal Consumed - Dinner: 90 Subjective Subjective Patient was seen & assessed and interval progress reviewed with treatment team nursing and social work Patient states that he is sleeping well and eating well. He does continue with depressed mood and low energy levels. Denies any adverse effects of the increased dosage of Wellbutrin. I spent 30 minutes with the patient, 50% of which was dedicated to counselling and coordination of care. Physical Exam Psychiatric Orientation: alert and oriented x 3 Apperance: appropriately dressed and appropriately groomed Eye Contact: good eye contact Motor Behavior: no abnormal motor movements Affect: + depressed affect Mood: + depressed mood Thought Process: goal directed thought process Thought Content: reality based without delusions Suicidal Thoughts: denies suicidal plan (on unit); + reports suicidal thoughts Homicidal Thoughts: denies homicidal thoughts Hallucinations: no auditory hallucinations and no visual hallucinations Cognition: attention grossly intact and language grossly intact Estimated Intelligence: consistent with education level Insight: + limited insight Judgement: + limited judgement Vital Signs (Past 24 Hours) Last Vital Signs Temp 36.5 C 04/30/21 06:39 Pulse 106 H 04/30/21 10:05 Resp 16 04/30/21 06:39 BP 124/89 04/30/21 10:05 Pulse Ox 97 04/23/21 06:00 Results & Data ([facility]) Current Inpatient Medications Current Inpatient Medications: Current Inpatient Medications Acetaminophen (Acetaminophen 325 Mg Tab) 650 mg PO Q4H PRN PRN Reason: Headache or Minor Fever Stop: 05/22/21 16:11 Al Hydrox/Mg Hydrox/Simethicone (Aluminum/Magnesium Susp 30 Ml Udc) 30 ml PO Q4H PRN PRN Reason: GI Upset Stop: 05/22/21 16:11 Bismuth Subsalicylate (Bismuth Subsalicylate Liqd 236 Ml) 15 ml PO PRN PRN PRN Reason: Loose Stool Stop: 05/22/21 16:11 Bupropion HCl (Bupropion Xl 150 Mg Tabcr) 450 mg PO QAM RAMÓN Stop: 05/28/21 08:59 Last Admin: 04/30/21 09:05 Dose: 450 mg Documented by: Clonidine HCl (Clonidine Hcl 0.1 Mg Tab) 0.1 mg PO BID RAMÓN Stop: 05/22/21 20:59 Last Admin: 04/30/21 10:07 Dose: 0.1 mg Documented by: Clozapine (Clozapine 25 Mg Tab) 50 mg PO HS RAMÓN Stop: 05/22/21 20:59 Last Admin: 04/29/21 20:37 Dose: 50 mg Documented by: Hydroxyzine HCl (Hydroxyzine Hcl 25 Mg Tab) 50 mg PO HSZ PRN PRN Reason: Insomnia Stop: 05/22/21 16:11 Hydroxyzine HCl (Hydroxyzine Hcl 25 Mg Tab) 25 mg PO Q4H PRN PRN Reason: Anxiety Stop: 05/22/21 16:11 Magnesium Hydroxide (Magnesium Hydroxide Susp 30 Ml Udc) 30 ml PO DAILY PRN PRN Reason: Constipation Stop: 05/22/21 16:11 Metformin HCl (Metformin Hcl 500 Mg Tab) 500 mg PO BIDM RAMÓN Stop: 05/22/21 18:59 Last Admin: 04/30/21 10:08 Dose: 500 mg Documented by: Methadone HCl (Methadone Oral Soln 2 Mg/Ml) 94 mg PO DAILY RAMÓN Stop: 05/07/21 08:59 Last Admin: 04/30/21 09:06 Dose: 94 mg Documented by: Non-Formulary Medication (Patient's Own Controlled Med) 1 ea PO DAILY RAMÓN Stop: 05/07/21 08:59 Last Admin: 04/30/21 10:07 Dose: Not Given Documented by: Prazosin HCl (Prazosin Hcl 1 Mg Cap) 5 mg PO QPM RAMÓN Stop: 05/22/21 20:59 Last Admin: 04/29/21 20:38 Dose: 5 mg Documented by: Simvastatin (Simvastatin 20 Mg Tab) 20 mg PO QPM RAMÓN Stop: 05/22/21 20:59 Last Admin: 04/29/21 20:38 Dose: 20 mg Documented by: Sodium Chloride (Sodium Chloride 0.65% Na Soln 45 Ml ([place])) 1 - 2 sprays NA PRN PRN PRN Reason: Nasal Dryness/Congestion Stop: 05/22/21 16:11 Mental Health & Subst Abuse Tx Psychiatrist Name of Psychiatrist: Linda Gonzales PA-C Psychiatrist's Date of Appointment with Psychiatrist: 04/30/21 Time of Appointment with Psychiatrist: 12 p.m. Psychiatric Appointment Comment: [address] [facility], [place] [address] Therapist Name of Therapist: . Machine Ii Cutter Name of Machine Ii Cutter: [facility] - Emily Guzman Phone Number for Machine Ii Cutter: [phone] Case Management Appointment Comment: Continue to see per routine - call at any time if/when needed Post Discharge Appointments Primary Care Physician Name Of Family Doctor: Linda Loyola Primary Care Time of Appointment with PCP: Please follow up as needed Provider Appointment Comment: [address] [facility], [place] [address] Hand Mold Maker Name of Hand Mold Maker: Yuri Zhou Phone Number of Hand Mold Maker: [phone] Time of Appointment with Hand Mold Maker: Continue to see per routine - call at any time if/when needed Hand Mold Maker Appointment Comment: [address] [facility], [place], [place] Other #1: Name of Aftercare Appointment: [place] [facility] Phone Number of Aftercare Appointment: Time of Aftercare Appointment: Continue to see per routine - call at any time if/when needed Aftercare Appointment Comment: [address], [place] [address] #2: Name of Aftercare Appointment: Magdy Urrutia Phone Number of Aftercare Appointment: [phone] Date of Aftercare Appointment: 04/30/21 Time of Aftercare Appointment: 11 a.m. Aftercare Appointment Comment: [facility] #3: Name of Aftercare Appointment: [facility] Phone Number of Aftercare Appointment: [phone] Date of Aftercare Appointment: 04/30/21 Time of Aftercare Appointment: 9:30 a.m. Aftercare Appointment Comment: [address] [place] [address] Contact Information Discharge Discharge Address: [address] [place] [address], [facility] [address], [place] [address]
[2021-04-30] MEDS: cloZAPine 25 MG TAB PO SCH (20:49)
[2021-04-30] MEDS: PRAZOSIN HCL 1 MG CAP PO SCH (20:49)
[2021-04-30] MEDS: SIMVASTATIN 20 MG TAB PO SCH (20:49)
[2021-05-01] MEDS: buPROPion XL 150 MG TABCR PO SCH (09:22)
[2021-05-01] MEDS: cloNIDine HCL 0.1 MG TAB PO SCH ×2 (09:22→21:01)
[2021-05-01] MEDS: METHADONE ORAL SOLN 2 MG/ML PO SCH (09:22)
[2021-05-01] MEDS: metFORMIN HCL 500 MG TAB PO SCH ×2 (09:22→17:12)
[2021-05-01] MEDS: PATIENT'S OWN CONTROLLED MED 2 PO SCH (09:23)
--- NOTE | 2021-05-01 19:00 | Psychiatric Progress Note ---
Date of Service May 01, 2021 Impression / Recommendations Impression 40 yo male with a history of substance induced psychosis and recurrent depression with remote suicide attempt but multiple inpatient hospitalizations presents with worsening depression, SI with plan, despite extensive community supports. Presentation this hospitalization is dramatically different from previous as he is not using meth. 05/01/21--mood improving, anxiety increased (1) Schizoaffective disorder, depressive type: (2) Long-term current use of methadone for opiate dependence: (3) Testosterone deficiency in male: 05/01/21--decrease Wellbutrin to 300 mg daily. Reviewed italics: 04/23/21--The patient was admitted to the [facility] ([facility] mental health unit) on q15 min checks (behavioral with suicide precautions) for safety. The patient will participate in group, recreational, and milieu therapies and will be offered additional individual and family sessions as clinically appropriate. Valeria Pascal PA-C was contacted to coordinate care with [facility] team and to discuss medication options as would benefit from an antidepressant (provided med hx above) with past clear response to Wellbutrin. She feels strongly that low T is contributing to his anxiety and depression. He has received 1 injection under direction of Dr. Loyola but insurance requires 3 blood draws to authorize. Will repeat #2 here with his am fasting metabolic labs. Risks/benefits/alternatives were reviewed re: his current medication (primarily Clozaril) and restart Wellbutrin. Discussion included but was not limited to need for metabolic and TD monitoring. He has no abnormal motor movements at baseline. Reviewed with patient that benzodiazepines are contraindicated in combination with methadone and can result in respiratory depression and even . This discussion around this and his MJ use lasted more than 5 min and constitutes a brief intervention. He was receptive but minimized use. He was made aware of depressant nature of these substances and how can interact with his medications. He is agreeable to continue therapy with [facility]'s methadone program. His dose of methadone was confirmed with [facility] before administered by hospital. 04/24/2021atient is behaviorally appropriate, attending groups and compliant with medications. Mood remains depressed, we will continue current treatment plan 04/25/2021we will increase patient's Wellbutrin to 300 mg p.o. every morning starting tomorrow morning. 04/26/2021atient tolerating increased dosage of Wellbutrin well. Mood still remains low. 04/27/2021atient making progress although still feeling depressed. Improved from admission. 04/28/2021atient still reporting low mood, compliant with medications and appropriate with peers. We will continue current regimen for now. 04/29/2021ontinue current regimen for now. Patient still with low dysphoric mood. 04/30/2021--continue current regimen, patient appears to have minimal improvement with Wellbutrin regimen thus far. Will continue for a couple more days before reassessing efficacy Inventory Assets Strengths: has been more compliant with outpatient services, maintaining a job Needs: team meeting, antidepressant retrial Risk Factors Assessment Male: Yes : Yes Do You Have Access To A Gun?: No Mental Health Diagnoses: Yes Substance Use Disorders: Yes Previous Attempt: Yes Protective Factors Assessment Employed: Yes ([employer]) Stable Relationships: Yes Good Rapport with Provider: Yes Interval History Identifying Information 40 yo male with hx of psychosis related to drug use, opiate dependence, and recurrent depression admit 04/22 on 201. Chief Complaint "I'm feeling a little more hopeful but also more anxious past few days in am and bed". Review of Systems Sleep Information Total Hours of Sleep: 6.5 Sleep Comments: pt on q-15 miinute checks Meal Information Percent Meal Consumed - Breakfast: 25 Percent Meal Consumed - Lunch: 100 Percent Meal Consumed - Dinner: 30 Subjective Subjective Patient was seen & assessed and interval progress reviewed with nursing and social work. chart reviewed. patient known to me from earlier in hospital stay. Wellbutrin last titrated on 04/28 to 450 mg and reports some increase in anxiety which could be side effect of speed of titration. Physical Exam Psychiatric Orientation: alert and oriented x 3 Apperance: appropriately dressed and appropriately groomed Eye Contact: good eye contact Motor Behavior: no abnormal motor movements Speech: normal rate/rhythm/volume of speech Affect: + constricted affect mood is "Getting there" Thought Process: goal directed thought process Thought Content: reality based without delusions Suicidal Thoughts: denies suicidal thoughts (today, reports thoughts last pm, no intent or plan on unit) Homicidal Thoughts: denies homicidal thoughts Hallucinations: no auditory hallucinations and no visual hallucinations Cognition: attention grossly intact and language grossly intact Estimated Intelligence: consistent with education level Insight: + fair insight Judgement: + fair judgement Vital Signs (Past 24 Hours) Last Vital Signs Temp 36.4 C L 05/01/21 06:30 Pulse 91 H 05/01/21 06:30 Resp 14 05/01/21 06:30 BP 100/67 05/01/21 06:30 Pulse Ox 97 04/23/21 06:00 Results & Data ([facility]) Current Inpatient Medications Current Inpatient Medications: Current Inpatient Medications Acetaminophen (Acetaminophen 325 Mg Tab) 650 mg PO Q4H PRN PRN Reason: Headache or Minor Fever Stop: 05/22/21 16:11 Al Hydrox/Mg Hydrox/Simethicone (Aluminum/Magnesium Susp 30 Ml Udc) 30 ml PO Q4H PRN PRN Reason: GI Upset Stop: 05/22/21 16:11 Bismuth Subsalicylate (Bismuth Subsalicylate Liqd 236 Ml) 15 ml PO PRN PRN PRN Reason: Loose Stool Stop: 05/22/21 16:11 Bupropion HCl (Bupropion Xl 300 Mg Tabcr) 300 mg PO QAM RAMÓN Stop: 06/01/21 08:59 Clonidine HCl (Clonidine Hcl 0.1 Mg Tab) 0.1 mg PO BID RAMÓN Stop: 05/22/21 20:59 Last Admin: 05/01/21 09:22 Dose: 0.1 mg Documented by: Clozapine (Clozapine 25 Mg Tab) 50 mg PO HS RAMÓN Stop: 05/22/21 20:59 Last Admin: 04/30/21 20:49 Dose: 50 mg Documented by: Hydroxyzine HCl (Hydroxyzine Hcl 25 Mg Tab) 50 mg PO HSZ PRN PRN Reason: Insomnia Stop: 05/22/21 16:11 Hydroxyzine HCl (Hydroxyzine Hcl 25 Mg Tab) 25 mg PO Q4H PRN PRN Reason: Anxiety Stop: 05/22/21 16:11 Last Admin: 05/01/21 17:32 Dose: 25 mg Documented by: Magnesium Hydroxide (Magnesium Hydroxide Susp 30 Ml Udc) 30 ml PO DAILY PRN PRN Reason: Constipation Stop: 05/22/21 16:11 Metformin HCl (Metformin Hcl 500 Mg Tab) 500 mg PO BIDM RAMÓN Stop: 05/22/21 18:59 Last Admin: 05/01/21 17:12 Dose: 500 mg Documented by: Methadone HCl (Methadone Oral Soln 2 Mg/Ml) 94 mg PO DAILY RAMÓN Stop: 05/07/21 08:59 Last Admin: 05/01/21 09:22 Dose: 94 mg Documented by: Non-Formulary Medication (Patient's Own Controlled Med) 1 ea PO DAILY RAMÓN Stop: 05/07/21 08:59 Last Admin: 05/01/21 09:23 Dose: Not Given Documented by: Prazosin HCl (Prazosin Hcl 1 Mg Cap) 5 mg PO QPM RAMÓN Stop: 05/22/21 20:59 Last Admin: 04/30/21 20:49 Dose: 5 mg Documented by: Simvastatin (Simvastatin 20 Mg Tab) 20 mg PO QPM RAMÓN Stop: 05/22/21 20:59 Last Admin: 04/30/21 20:49 Dose: 20 mg Documented by: Sodium Chloride (Sodium Chloride 0.65% Na Soln 45 Ml ([place])) 1 - 2 sprays NA PRN PRN PRN Reason: Nasal Dryness/Congestion Stop: 05/22/21 16:11 Mental Health & Subst Abuse Tx Psychiatrist Name of Psychiatrist: Linda Gonzales PA-C Psychiatrist's Date of Appointment with Psychiatrist: 05/07/21 Time of Appointment with Psychiatrist: 12 p.m. Psychiatric Appointment Comment: [address] [facility], [place] [address] Therapist Name of Therapist: . Health Safety And Environment Manager Name of Health Safety And Environment Manager: [facility] - Emily Gzuman Phone Number for Health Safety And Environment Manager: [phone] Case Management Appointment Comment: Continue to see per routine - call at any time if/when needed Post Discharge Appointments Primary Care Physician Name Of Family Doctor: Linda Loyola Primary Care Time of Appointment with PCP: Please follow up as needed Provider Appointment Comment: [address], [place] [address] Adjunct Professor Of Law Name of Adjunct Professor Of Law: Yuri Zhou Phone Number of Adjunct Professor Of Law: [phone] Time of Appointment with Adjunct Professor Of Law: Continue to see per routine - call at any time if/when needed Adjunct Professor Of Law Appointment Comment: [address] [facility], [place], [place] Contact Information Discharge Discharge Address: [address] [place] [address] [address], [place] [address]
[2021-05-01] MEDS: PRAZOSIN HCL 1 MG CAP PO SCH (21:02)
[2021-05-01] MEDS: SIMVASTATIN 20 MG TAB PO SCH (21:04)
[2021-05-01] MEDS: cloZAPine 25 MG TAB PO SCH (21:04)
[2021-05-02] MEDS: cloNIDine HCL 0.1 MG TAB PO SCH ×3 (08:58→17:47)
[2021-05-02] MEDS: metFORMIN HCL 500 MG TAB PO SCH ×2 (08:58→17:43)
[2021-05-02] MEDS: PATIENT'S OWN CONTROLLED MED 2 PO SCH (08:58)
[2021-05-02] MEDS: buPROPion XL 300 MG TABCR PO SCH (08:58)
[2021-05-02] MEDS: METHADONE ORAL SOLN 2 MG/ML PO SCH (08:58)
[2021-05-02] MEDS: POLYETHYLENE (MIRALAX) 17 GM PACK PO SCH (13:15)
[2021-05-02] MEDS: DOCUSATE SODIUM 100 MG CAP PO SCH ×2 (13:26→21:16)
--- NOTE | 2021-05-02 16:23 | Psychiatric Progress Note ---
Date of Service May 02, 2021 Impression / Recommendations Impression 40 yo male with a history of substance induced psychosis and recurrent depression with remote suicide attempt but multiple inpatient hospitalizations presents with worsening depression, SI with plan, despite extensive community supports. Presentation this hospitalization is dramatically different from previous as he is not using meth. 05/02/21--intermittent passive SI with racing thoughts, likely activation on higher dose of Wellbutrin, 1st day of decreased dose. (1) Schizoaffective disorder, depressive type: (2) Long-term current use of methadone for opiate dependence: (3) Testosterone deficiency in male: 05/02/21--titrate clonidine to TID dosing and shift to coincide with meals for better coverage for anxiety, scheduled Vistaril at hs. 05/01/21--decrease Wellbutrin to 300 mg daily. Reviewed italics: 04/23/21--The patient was admitted to the [facility] ([facility] mental health unit) on q15 min checks (behavioral with suicide precautions) for safety. The patient will participate in group, recreational, and milieu therapies and will be offered additional individual and family sessions as clinically appropriate. Valeria Pascal PA-C was contacted to coordinate care with [facility] team and to discuss medication options as would benefit from an antidepressant (provided med hx above) with past clear response to Wellbutrin. She feels strongly that low T is contributing to his anxiety and depression. He has received 1 injection under direction of Dr. Loyola but insurance requires 3 blood draws to authorize. Will repeat #2 here with his am fasting metabolic labs. Risks/benefits/alternatives were reviewed re: his current medication (primarily Clozaril) and restart Wellbutrin. Discussion included but was not limited to sameer xavier for metabolic and TD monitoring. He has no abnormal motor movements at baseline. Reviewed with patient that benzodiazepines are contraindicated in combination with methadone and can result in respiratory depression and even . This discussion around this and his MJ use lasted more than 5 min and constitutes a brief intervention. He was receptive but minimized use. He was made aware of depressant nature of these substances and how can interact with his medications. He is agreeable to continue therapy with [facility]'s methadone program. His dose of methadone was confirmed with [facility] before administered by hospital. 04/24/2021atient is behaviorally appropriate, attending groups and compliant with medications. Mood remains depressed, we will continue current treatment plan 04/25/2021we will increase patient's Wellbutrin to 300 mg p.o. every morning starting tomorrow morning. 04/26/2021atient tolerating increased dosage of Wellbutrin well. Mood still remains low. 04/27/2021atient making progress although still feeling depressed. Improved from admission. 04/28/2021atient still reporting low mood, compliant with medications and appropriate with peers. We will continue current regimen for now. 04/29/2021ontinue current regimen for now. Patient still with low dysphoric mood. 04/30/2021--continue current regimen, patient appears to have minimal improvement with Wellbutrin regimen thus far. Will continue for a couple more days before reassessing efficacy Inventory Assets Strengths: has been more compliant with outpatient services, maintaining a job Needs: team meeting, antidepressant retrial Risk Factors Assessment Male: Yes : Yes Do You Have Access To A Gun?: No Mental Health Diagnoses: Yes Substance Use Disorders: Yes Previous Attempt: Yes Protective Factors Assessment Employed: Yes ([employer]) Stable Relationships: Yes Good Rapport with Provider: Yes Interval History Identifying Information 40 yo male with hx of psychosis related to drug use, opiate dependence, and recurrent depression admit 04/22 on 201. Chief Complaint "I'm so anxious again". Review of Systems Sleep Information Total Hours of Sleep: 10 Sleep Comments: pt on q-15 miinute checks Meal Information Percent Meal Consumed - Breakfast: 25 Percent Meal Consumed - Lunch: 100 Percent Meal Consumed - Dinner: 30 Subjective Subjective Patient was seen & assessed and interval progress reviewed with nursing and social work. Some concerns about increase in DFA, excessive sweating, and ongoing anxiety on higher dose of Wellbutrin. Discussed his dosing schedule for clonidine. He is showing interest in football and is somewhat relieved that work is accommodating his leave. Physical Exam Psychiatric Orientation: alert and oriented x 3 Apperance: appropriately dressed and appropriately groomed Eye Contact: good eye contact Motor Behavior: no abnormal motor movements Speech: normal rate/rhythm/volume of speech Affect: + depressed affect and + constricted affect Mood: + depressed mood Thought Process: goal directed thought process Thought Content: reality based without delusions Suicidal Thoughts: denies suicidal thoughts (today, reports thoughts last pm, no intent or plan on unit) and denies suicidal plan (on unit) Homicidal Thoughts: denies homicidal thoughts Hallucinations: no auditory hallucinations and no visual hallucinations Cognition: attention grossly intact and language grossly intact Estimated Intelligence: consistent with education level Insight: + fair insight Judgement: + fair judgement Vital Signs (Past 24 Hours) Last Vital Signs Temp 36.6 C 05/02/21 06:47 Pulse 85 05/02/21 06:47 Resp 16 05/02/21 06:47 BP 104/76 05/02/21 06:47 Pulse Ox 97 04/23/21 06:00 Results & Data ([facility]) Current Inpatient Medications Current Inpatient Medications: Current Inpatient Medications Acetaminophen (Acetaminophen 325 Mg Tab) 650 mg PO Q4H PRN PRN Reason: Headache or Minor Fever Stop: 05/22/21 16:11 Al Hydrox/Mg Hydrox/Simethicone (Aluminum/Magnesium Susp 30 Ml Udc) 30 ml PO Q4H PRN PRN Reason: GI Upset Stop: 05/22/21 16:11 Bismuth Subsalicylate (Bismuth Subsalicylate Liqd 236 Ml) 15 ml PO PRN PRN PRN Reason: Loose Stool Stop: 05/22/21 16:11 Bupropion HCl (Bupropion Xl 300 Mg Tabcr) 300 mg PO QAM RAMÓN Stop: 06/01/21 08:59 Last Admin: 05/02/21 08:58 Dose: 300 mg Documented by: Clonidine HCl (Clonidine Hcl 0.1 Mg Tab) 0.1 mg PO PC RAMÓN Stop: 06/01/21 12:59 Last Admin: 05/02/21 13:17 Dose: 0.1 mg Documented by: Clozapine (Clozapine 25 Mg Tab) 50 mg PO HS RAMÓN Stop: 05/22/21 20:59 Last Admin: 05/01/21 21:04 Dose: 50 mg Documented by: Docusate Sodium (Docusate Sodium 100 Mg Cap) 100 mg PO BID RAMÓN Stop: 06/01/21 11:24 Last Admin: 05/02/21 13:26 Dose: 100 mg Documented by: Hydroxyzine HCl (Hydroxyzine Hcl 25 Mg Tab) 50 mg PO Q4H PRN PRN Reason: Anxiety Stop: 05/22/21 16:11 Hydroxyzine HCl (Hydroxyzine Hcl 25 Mg Tab) 50 mg PO HSZ RAMÓN Stop: 06/01/21 21:59 Magnesium Hydroxide (Magnesium Hydroxide Susp 30 Ml Udc) 30 ml PO DAILY PRN PRN Reason: Constipation Stop: 05/22/21 16:11 Metformin HCl (Metformin Hcl 500 Mg Tab) 500 mg PO BIDM RAMÓN Stop: 05/22/21 18:59 Last Admin: 05/02/21 08:58 Dose: 500 mg Documented by: Methadone HCl (Methadone Oral Soln 2 Mg/Ml) 94 mg PO DAILY RAMÓN Stop: 05/07/21 08:59 Last Admin: 05/02/21 08:58 Dose: 94 mg Documented by: Non-Formulary Medication (Patient's Own Controlled Med) 1 ea PO DAILY RAMÓN Stop: 05/07/21 08:59 Last Admin: 05/02/21 08:58 Dose: Not Given Documented by: Polyethylene Glycol (Polyethylene (Miralax) 17 Gm Pack) 17 gm PO DAILY RAMÓN Stop: 06/01/21 11:24 Last Admin: 05/02/21 13:15 Dose: 17 gm Documented by: Prazosin HCl (Prazosin Hcl 1 Mg Cap) 5 mg PO QPM RAMÓN Stop: 05/22/21 20:59 Last Admin: 05/01/21 21:02 Dose: 5 mg Documented by: Simvastatin (Simvastatin 20 Mg Tab) 20 mg PO QPM RAMÓN Stop: 05/22/21 20:59 Last Admin: 05/01/21 21:04 Dose: 20 mg Documented by: Sodium Chloride (Sodium Chloride 0.65% Na Soln 45 Ml ([place])) 1 - 2 sprays NA PRN PRN PRN Reason: Nasal Dryness/Congestion Stop: 05/22/21 16:11 Mental Health & Subst Abuse Tx Psychiatrist Name of Psychiatrist: Linda Gonzales PA-C Psychiatrist's Date of Appointment with Psychiatrist: 05/07/21 Time of Appointment with Psychiatrist: 12 p.m. Psychiatric Appointment Comment: [address] [place] [address] Therapist Name of Therapist: . Airway Controller Name of Airway Controller: [employer] - Emily Guzman Phone Number for Airway Controller: [phone] Case Management Appointment Comment: Continue to see per routine - call at any time if/when needed Post Discharge Appointments Primary Care Physician Name Of Family Doctor: Linda Loyola Primary Care Time of Appointment with PCP: Please follow up as needed Provider Appointment Comment: [address] [facility], [place] [address] Tank Crewmember Name of Tank Crewmember: Yuri Zhou Phone Number of Tank Crewmember: [phone] Time of Appointment with Tank Crewmember: Continue to see per routine - call at any time if/when needed Tank Crewmember Appointment Comment: [address] [facility] [address], [place], [place] Contact Information Discharge Discharge Address: [address] [place] [address] [address], [place] [address]
[2021-05-02] MEDS: cloZAPine 25 MG TAB PO SCH (21:14)
[2021-05-02] MEDS: PRAZOSIN HCL 1 MG CAP PO SCH (21:15)
[2021-05-02] MEDS: SIMVASTATIN 20 MG TAB PO SCH (21:16)
[2021-05-02] MEDS: hydrOXYzine HCl 25 MG TAB PO SCH (21:19)
[2021-05-03] MEDS: DOCUSATE SODIUM 100 MG CAP PO SCH ×2 (08:50→20:32)
[2021-05-03] MEDS: metFORMIN HCL 500 MG TAB PO SCH ×2 (08:50→17:30)
[2021-05-03] MEDS: buPROPion XL 300 MG TABCR PO SCH (08:50)
[2021-05-03] MEDS: POLYETHYLENE (MIRALAX) 17 GM PACK PO SCH (08:50)
[2021-05-03] MEDS: cloNIDine HCL 0.1 MG TAB PO SCH ×3 (08:50→17:30)
[2021-05-03] MEDS: PATIENT'S OWN CONTROLLED MED 2 PO SCH (08:51)
[2021-05-03] MEDS: METHADONE ORAL SOLN 2 MG/ML PO SCH (08:51)
--- NOTE | 2021-05-03 16:57 | Psychiatric Progress Note ---
Date of Service May 03, 2021 Impression / Recommendations Impression 40 yo male with a history of substance induced psychosis and recurrent depression with remote suicide attempt but multiple inpatient hospitalizations presents with worsening depression, SI with plan, despite extensive community supports. Presentation this hospitalization is dramatically different from previous as he is not using meth. 05/03/21--intermittent passive SI with racing thoughts, tolerating 300 mg Wellbutrin better than 450 mg. (1) Schizoaffective disorder, depressive type: (2) Long-term current use of methadone for opiate dependence: (3) Testosterone deficiency in male: 05/03/21--continue current meds and treatment plan 05/02/21--titrate clonidine to TID dosing and shift to coincide with meals for better coverage for anxiety, scheduled Vistaril at hs. 05/01/21--decrease Wellbutrin to 300 mg daily. Reviewed italics: 04/23/21--The patient was admitted to the [facility] ([facility] mental health unit) on q15 min checks (behavioral with suicide precautions) for safety. The patient will participate in group, recreational, and milieu therapies and will be offered additional individual and family sessions as clinically appropriate. Valeria Pascal PA-C was contacted to coordinate care with [facility] team and to discuss medication options as would benefit from an antidepressant (provided med hx above) with past clear response to Wellbutrin. She feels strongly that low T is contributing to his anxiety and depression. He has received 1 injection under direction of Dr. Loyola but insurance requires 3 blood draws to auth orize. Will repeat #2 here with his am fasting metabolic labs. Risks/benefits/alternatives were reviewed re: his current medication (primarily Clozaril) and restart Wellbutrin. Discussion included but was not limited to need for metabolic and TD monitoring. He has no abnormal motor movements at baseline. Reviewed with patient that benzodiazepines are contraindicated in combination with methadone and can result in respiratory depression and even . This discussion around this and his MJ use lasted more than 5 min and constitutes a brief intervention. He was receptive but minimized use. He was made aware of depressant nature of these substances and how can interact with his medications. He is agreeable to continue therapy with [facility]'s methadone program. His dose of methadone was confirmed with [facility] before administered by hospital. 04/24/2021atient is behaviorally appropriate, attending groups and compliant with medications. Mood remains depressed, we will continue current treatment plan 04/25/2021we will increase patient's Wellbutrin to 300 mg p.o. every morning starting tomorrow morning. 04/26/2021atient tolerating increased dosage of Wellbutrin well. Mood still remains low. 04/27/2021atient making progress although still feeling depressed. Improved from admission. 04/28/2021atient still reporting low mood, compliant with medications and appropriate with peers. We will continue current regimen for now. 04/29/2021ontinue current regimen for now. Patient still with low dysphoric mood. 04/30/2021--continue current regimen, patient appears to have minimal improvement with Wellbutrin regimen thus far. Will continue for a couple more days before reassessing efficacy Inventory Assets Strengths: has been more compliant with outpatient services, maintaining a job Needs: team meeting, antidepressant retrial Risk Factors Assessment Male: Yes : Yes Do You Have Access To A Gun?: No Mental Health Diagnoses: Yes Substance Use Disorders: Yes Previous Attempt: Yes Protective Factors Assessment Employed: Yes ([employer]) Stable Relationships: Yes Good Rapport with Provider: Yes Interval History Identifying Information 40 yo male with hx of psychosis related to drug use, opiate dependence, and recurrent depression admit 04/22 on 201. Chief Complaint "yeah I feel a little better today I guess". Review of Systems Sleep Information Total Hours of Sleep: 8.5 Sleep Comments: pt on q-15 miinute checks Meal Information Percent Meal Consumed - Breakfast: 25 Percent Meal Consumed - Lunch: 100 Percent Meal Consumed - Dinner: 90 Subjective Subjective Patient was seen & assessed and interval progress reviewed with treatment team. Did not take as long to fall asleep last pm. sleep was disrupted only because got a roommate. Feels jitteriness is subsiding. P stable. Physical Exam Psychiatric Orientation: alert and oriented x 3 Apperance: appropriately dressed and appropriately groomed Eye Contact: good eye contact Motor Behavior: no abnormal motor movements Speech: normal rate/rhythm/volume of speech Affect: + depressed affect and + constricted affect Mood: + depressed mood Thought Process: goal directed thought process Thought Content: reality based without delusions Suicidal Thoughts: denies suicidal thoughts (today, reports thoughts last pm, no intent or plan on unit) and denies suicidal plan (on unit) Homicidal Thoughts: denies homicidal thoughts Hallucinations: no auditory hallucinations and no visual hallucinations Cognition: attention grossly intact and language grossly intact Estimated Intelligence: consistent with education level Insight: + limited insight Judgement: + limited judgement Vital Signs (Past 24 Hours) Last Vital Signs Temp 36.5 C 05/03/21 06:44 Pulse 99 H 05/03/21 13:03 Resp 16 05/03/21 06:44 BP 107/79 05/03/21 13:03 Pulse Ox 97 04/23/21 06:00 Results & Data ([facility]) Current Inpatient Medications Current Inpatient Medications: Current Inpatient Medications Acetaminophen (Acetaminophen 325 Mg Tab) 650 mg PO Q4H PRN PRN Reason: Headache or Minor Fever Stop: 05/22/21 16:11 Al Hydrox/Mg Hydrox/Simethicone (Aluminum/Magnesium Susp 30 Ml Udc) 30 ml PO Q4H PRN PRN Reason: GI Upset Stop: 05/22/21 16:11 Bismuth Subsalicylate (Bismuth Subsalicylate Liqd 236 Ml) 15 ml PO PRN PRN PRN Reason: Loose Stool Stop: 05/22/21 16:11 Bupropion HCl (Bupropion Xl 300 Mg Tabcr) 300 mg PO QAM RAMÓN Stop: 06/01/21 08:59 Last Admin: 05/03/21 08:50 Dose: 300 mg Documented by: Clonidine HCl (Clonidine Hcl 0.1 Mg Tab) 0.1 mg PO PC RAMÓN Stop: 06/01/21 12:59 Last Admin: 05/03/21 13:00 Dose: 0.1 mg Documented by: Clozapine (Clozapine 25 Mg Tab) 50 mg PO HS RAMÓN Stop: 05/22/21 20:59 Last Admin: 05/02/21 21:14 Dose: 50 mg Documented by: Docusate Sodium (Docusate Sodium 100 Mg Cap) 100 mg PO BID RAMÓN Stop: 06/01/21 11:24 Last Admin: 05/03/21 08:50 Dose: 100 mg Documented by: Hydroxyzine HCl (Hydroxyzine Hcl 25 Mg Tab) 50 mg PO Q4H PRN PRN Reason: Anxiety Stop: 05/22/21 16:11 Hydroxyzine HCl (Hydroxyzine Hcl 25 Mg Tab) 50 mg PO HSZ RAMÓN Stop: 06/01/21 21:59 Last Admin: 05/02/21 21:19 Dose: 50 mg Documented by: Magnesium Hydroxide (Magnesium Hydroxide Susp 30 Ml Udc) 30 ml PO DAILY PRN PRN Reason: Constipation Stop: 05/22/21 16:11 Metformin HCl (Metformin Hcl 500 Mg Tab) 500 mg PO BIDM RAMÓN Stop: 05/22/21 18:59 Last Admin: 05/03/21 08:50 Dose: 500 mg Documented by: Methadone HCl (Methadone Oral Soln 2 Mg/Ml) 94 mg PO DAILY RAMÓN Stop: 05/07/21 08:59 Last Admin: 05/03/21 08:51 Dose: 94 mg Documented by: Non-Formulary Medication (Patient's Own Controlled Med) 1 ea PO DAILY RAMÓN Stop: 05/07/21 08:59 Last Admin: 05/03/21 08:51 Dose: Not Given Documented by: Polyethylene Glycol (Polyethylene (Miralax) 17 Gm Pack) 17 gm PO DAILY RAMÓN Stop: 06/01/21 11:24 Last Admin: 05/03/21 08:50 Dose: 17 gm Documented by: Prazosin HCl (Prazosin Hcl 1 Mg Cap) 5 mg PO QPM RAMÓN Stop: 05/22/21 20:59 Last Admin: 05/02/21 21:15 Dose: 5 mg Documented by: Simvastatin (Simvastatin 20 Mg Tab) 20 mg PO QPM RAMÓN Stop: 05/22/21 20:59 Last Admin: 05/02/21 21:16 Dose: 20 mg Documented by: Sodium Chloride (Sodium Chloride 0.65% Na Soln 45 Ml ([place])) 1 - 2 sprays NA PRN PRN PRN Reason: Nasal Dryness/Congestion Stop: 05/22/21 16:11 Mental Health & Subst Abuse Tx Psychiatrist Name of Psychiatrist: Linda Gonzales PA-C Psychiatrist's Date of Appointment with Psychiatrist: 05/07/21 Time of Appointment with Psychiatrist: 12 p.m. Psychiatric Appointment Comment: [address] [facility] [address] Therapist Name of Therapist: . Auto Care Center Manager Name of Auto Care Center Manager: [facility] Service Unit - Emily Guzman Phone Number for Auto Care Center Manager: [phone] Case Management Appointment Comment: Continue to see per routine - call at any time if/when needed Post Discharge Appointments Primary Care Physician Name Of Family Doctor: Linda Atkinson - Dr. Loyola Primary Care Time of Appointment with PCP: Please follow up as needed Provider Appointment Comment: [address] [facility], [place] [address] Currency Examiner Name of Currency Examiner: Yuri Zhou Phone Number of Currency Examiner: [phone] Time of Appointment with Currency Examiner: Continue to see per routine - call at any time if/when needed Currency Examiner App[facility]ment Comment: [address] [facility] [address] [place], [place] Contact Information Discharge Discharge Address: [address] [place] [address] [address], [place] [address]
[2021-05-03] MEDS: hydrOXYzine HCl 25 MG TAB PO PRN (17:56)
[2021-05-03] MEDS: cloZAPine 25 MG TAB PO SCH (20:32)
[2021-05-03] MEDS: SIMVASTATIN 20 MG TAB PO SCH (20:32)
[2021-05-03] MEDS: PRAZOSIN HCL 1 MG CAP PO SCH (20:32)
[2021-05-03] MEDS: hydrOXYzine HCl 25 MG TAB PO SCH (20:34)
[2021-05-04] MEDS: metFORMIN HCL 500 MG TAB PO SCH ×2 (09:50→17:33)
[2021-05-04] MEDS: buPROPion XL 300 MG TABCR PO SCH (09:50)
[2021-05-04] MEDS: DOCUSATE SODIUM 100 MG CAP PO SCH ×2 (09:50→20:38)
[2021-05-04] MEDS: cloNIDine HCL 0.1 MG TAB PO SCH ×3 (09:50→17:39)
[2021-05-04] MEDS: METHADONE ORAL SOLN 2 MG/ML PO SCH (09:51)
[2021-05-04] MEDS: PATIENT'S OWN CONTROLLED MED 2 PO SCH (09:52)
[2021-05-04] MEDS: POLYETHYLENE (MIRALAX) 17 GM PACK PO SCH (09:53)
--- NOTE | 2021-05-04 20:01 | Psychiatric Progress Note ---
Date of Service May 04, 2021 Impression / Recommendations Impression 40 yo male with a history of substance induced psychosis and recurrent depression with remote suicide attempt but multiple inpatient hospitalizations presents with worsening depression, SI with plan, despite extensive community supports. Presentation this hospitalization is dramatically different from previous as he is not using meth. 05/04/21--decrease in SI under stress, jitteriness resolved Plan--continue current meds and treatment plan. Inventory Assets Strengths: has been more compliant with outpatient services, maintaining a job Needs: team meeting, antidepressant retrial Risk Factors Assessment Male: Yes : Yes Do You Have Access To A Gun?: No Mental Health Diagnoses: Yes Substance Use Disorders: Yes Previous Attempt: Yes Protective Factors Assessment Employed: Yes ([employer]) Stable Relationships: Yes Good Rapport with Provider: Yes Interval History Identifying Information 40 yo male with hx of psychosis related to drug use, opiate dependence, and recurrent depression admit 04/22 on 201. Chief Complaint "I was upset but I'm also proud of how I'm doing". Review of Systems Sleep Information Total Hours of Sleep: 7.25 Sleep Comments: pt on q-15 miinute checks Meal Information Percent Meal Consumed - Breakfast: 50 Percent Meal Consumed - Lunch: 100 Percent Meal Consumed - Dinner: 100 Subjective Subjective Patient was seen & assessed and interval progress reviewed with nursing and social work. Anxiety continues to improve but was appropriately upset last pm as Jessica related that she paid the rent but some personal items were missing. He is not sure she did pay it. Did not escalate to SI. Physical Exam Psychiatric Orientation: alert and oriented x 3 Apperance: appropriately dressed and appropriately groomed Eye Contact: good eye contact Motor Behavior: no abnormal motor movements Speech: normal rate/rhythm/volume of speech Affect: + depressed affect and + constricted affect Mood: + depressed mood Thought Process: goal directed thought process Thought Content: reality based without delusions Suicidal Thoughts: denies suicidal thoughts and denies suicidal plan Homicidal Thoughts: denies homicidal thoughts Hallucinations: no auditory hallucinations and no visual hallucinations Cognition: attention grossly intact and language grossly intact Estimated Intelligence: consistent with education level Insight: + fair insight Judgement: + fair judgement Vital Signs (Past 24 Hours) Last Vital Signs Temp 36.6 C 05/04/21 06:55 Pulse 93 H 05/04/21 17:37 Resp 16 05/04/21 06:55 BP 106/76 05/04/21 17:37 Pulse Ox 97 04/23/21 06:00 Results & Data ([facility]) Current Inpatient Medications Current Inpatient Medications: Current Inpatient Medications Acetaminophen (Acetaminophen 325 Mg Tab) 650 mg PO Q4H PRN PRN Reason: Headache or Minor Fever Stop: 05/22/21 16:11 Al Hydrox/Mg Hydrox/Simethicone (Aluminum/Magnesium Susp 30 Ml Udc) 30 ml PO Q4H PRN PRN Reason: GI Upset Stop: 05/22/21 16:11 Bismuth Subsalicylate (Bismuth Subsalicylate Liqd 236 Ml) 15 ml PO PRN PRN PRN Reason: Loose Stool Stop: 05/22/21 16:11 Bupropion HCl (Bupropion Xl 300 Mg Tabcr) 300 mg PO QAM RAMÓN Stop: 06/01/21 08:59 Last Admin: 05/04/21 09:50 Dose: 300 mg Documented by: Clonidine HCl (Clonidine Hcl 0.1 Mg Tab) 0.1 mg PO PC RAMÓN Stop: 06/01/21 12:59 Last Admin: 05/04/21 17:39 Dose: 0.1 mg Documented by: Clozapine (Clozapine 25 Mg Tab) 50 mg PO HS RAMÓN Stop: 05/22/21 20:59 Last Admin: 05/03/21 20:32 Dose: 50 mg Documented by: Docusate Sodium (Docusate Sodium 100 Mg Cap) 100 mg PO BID RAMÓN Stop: 06/01/21 11:24 Last Admin: 05/04/21 09:50 Dose: 100 mg Documented by: Hydroxyzine HCl (Hydroxyzine Hcl 25 Mg Tab) 50 mg PO Q4H PRN PRN Reason: Anxiety Stop: 05/22/21 16:11 Last Admin: 05/03/21 17:56 Dose: 50 mg Documented by: Hydroxyzine HCl (Hydroxyzine Hcl 25 Mg Tab) 50 mg PO HSZ RAMÓN Stop: 06/01/21 21:59 Last Admin: 05/03/21 20:34 Dose: 50 mg Documented by: Magnesium Hydroxide (Magnesium Hydroxide Susp 30 Ml Udc) 30 ml PO DAILY PRN PRN Reason: Constipation Stop: 05/22/21 16:11 Metformin HCl (Metformin Hcl 500 Mg Tab) 500 mg PO BIDM RAMÓN Stop: 05/22/21 18:59 Last Admin: 05/04/21 17:33 Dose: 500 mg Documented by: Methadone HCl (Methadone Oral Soln 2 Mg/Ml) 94 mg PO DAILY RAMÓN Stop: 05/07/21 08:59 Last Admin: 05/04/21 09:51 Dose: 94 mg Documented by: Non-Formulary Medication (Patient's Own Controlled Med) 1 ea PO DAILY RAMÓN Stop: 05/07/21 08:59 Last Admin: 05/04/21 09:52 Dose: Not Given Documented by: Polyethylene Glycol (Polyethylene (Miralax) 17 Gm Pack) 17 gm PO DAILY RAMÓN Stop: 06/01/21 11:24 Last Admin: 05/04/21 09:53 Dose: 17 gm Documented by: Prazosin HCl (Prazosin Hcl 1 Mg Cap) 5 mg PO QPM RAMÓN Stop: 05/22/21 20:59 Last Admin: 05/03/21 20:32 Dose: 5 mg Documented by: Simvastatin (Simvastatin 20 Mg Tab) 20 mg PO QPM RAMÓN Stop: 05/22/21 20:59 Last Admin: 05/03/21 20:32 Dose: 20 mg Documented by: Sodium Chloride (Sodium Chloride 0.65% Na Soln 45 Ml ([place])) 1 - 2 sprays NA PRN PRN PRN Reason: Nasal Dryness/Congestion Stop: 05/22/21 16:11 Mental Health & Subst Abuse Tx Psychiatrist Name of Psychiatrist: Linda Gonzales PA-C Psychiatrist's Date of Appointment with Psychiatrist: 05/07/21 Time of Appointment with Psychiatrist: 12 p.m. Psychiatric Appointment Comment: [id number] [place] [address] Therapist Name of Therapist: . Bed Worker Name of Bed Worker: [employer] - Emliy Guzman Phone Number for Bed Worker: [phone] Case Management Appointment Comment: Continue to see per routine - call at any time if/when needed Post Discharge Appointments Primary Care Physician Name Of Family Doctor: [facility] Time of Appointment with PCP: Please follow up as needed Provider Appointment Comment: [address] [place] [address] Graphite Mill Operator Name of Graphite Mill Operator: Yuri Zhou Phone Number of Graphite Mill Operator: [phone] Time of Appointment with Graphite Mill Operator: Continue to see per routine - call at any time if/when needed Graphite Mill Operator Appointment Comment: [address], [place], [place] Contact Information Discharge Discharge Address: [address] [place] [address] [address], [place] [address]
[2021-05-04] MEDS: hydrOXYzine HCl 25 MG TAB PO SCH (20:37)
[2021-05-04] MEDS: SIMVASTATIN 20 MG TAB PO SCH (20:38)
[2021-05-04] MEDS: PRAZOSIN HCL 1 MG CAP PO SCH (20:38)
[2021-05-04] MEDS: cloZAPine 25 MG TAB PO SCH (20:38)
[2021-05-05] MEDS: cloNIDine HCL 0.1 MG TAB PO SCH ×3 (09:05→17:24)
[2021-05-05] MEDS: buPROPion XL 300 MG TABCR PO SCH (09:05)
[2021-05-05] MEDS: METHADONE ORAL SOLN 2 MG/ML PO SCH (09:05)
[2021-05-05] MEDS: POLYETHYLENE (MIRALAX) 17 GM PACK PO SCH (09:05)
[2021-05-05] MEDS: metFORMIN HCL 500 MG TAB PO SCH ×2 (09:06→17:24)
[2021-05-05] MEDS: DOCUSATE SODIUM 100 MG CAP PO SCH ×2 (09:06→20:29)
[2021-05-05] MEDS: PATIENT'S OWN CONTROLLED MED 2 PO SCH (09:06)
--- NOTE | 2021-05-05 18:38 | Psychiatric Progress Note ---
Date of Service May 05, 2021 Impression / Recommendations Impression 40 yo male with a history of substance induced psychosis and recurrent depression with remote suicide attempt but multiple inpatient hospitalizations presents with worsening depression, SI with plan, despite extensive community supports. Presentation this hospitalization is dramatically different from previous as he is not using meth. 05/05/21--improving (1) Schizoaffective disorder, depressive type: (2) Long-term current use of methadone for opiate dependence: (3) Testosterone deficiency in male: 05/05/21--patient calm, may benefit from methadone reduction on outpatient basis, staff coordinating with [facility] to ensure transportation/no missed doses as significant stress that could trigger symptom relapse soon after discharge. 05/03/21--continue current meds and treatment plan 05/02/21--titrate clonidine to TID dosing and shift to coincide with meals for better coverage for anxiety, scheduled Vistaril at hs. 05/01/21--decrease Wellbutrin to 300 mg daily. Reviewed italics: 04/23/21--The patient was admitted to the [facility] ([facility] unit) on q15 min checks (behavioral with suicide precautions) for safety. The patient will participate in group, recreational, and milieu therapies and will be offered additional individual and family sessions as clinically appropriate. Valeria Pascal PA-C was contacted to coordinate care with [facility] team and to discuss medication options as would benefit from an antidepressant (provided med hx above) with past clear response to Wellbutrin. She feels strongly that low T is contributing to his anxiety and depression. He has received 1 injection under direction of Dr. Loyola but insurance requires 3 blood draws to authorize. Will repeat #2 here with his am fasting metabolic labs. Risks/benefits/alternatives were reviewed re: his current medication (primarily Clozaril) and restart Wellbutrin. Discussion included but was not limited to need for metabolic and TD monitoring. He has no abnormal motor movements at baseline. Reviewed with patient that benzodiazepines are contraindicated in combination with methadone and can result in respiratory depression and even . This discussion around this and his MJ use lasted more than 5 min and constitutes a brief intervention. He was receptive but minimized use. He was made aware of depressant nature of these substances and how can interact with his medications. He is agreeable to continue therapy with [facility]'s methadone program. His dose of methadone was confirmed with [facility] before administered by hospital. 04/24/2021atient is behaviorally appropriate, attending groups and compliant with medications. Mood remains depressed, we will continue current treatment plan 04/25/2021we will increase patient's Wellbutrin to 300 mg p.o. every morning starting tomorrow morning. 04/26/2021atient tolerating increased dosage of Wellbutrin well. Mood still remains low. 04/27/2021atient making progress although still feeling depressed. Improved from admission. 04/28/2021atient still reporting low mood, compliant with medications and appropriate with peers. We will continue current regimen for now. 04/29/2021ontinue current regimen for now. Patient still with low dysphoric mood. 04/30/2021--continue current regimen, patient appears to have minimal improvement with Wellbutrin regimen thus far. Will continue for a couple more days before reassessing efficacy Inventory Assets Strengths: has been more compliant with outpatient services, maintaining a job Needs: team meeting, antidepressant retrial Risk Factors Assessment Male: Yes : Yes Do You Have Access To A Gun?: No Mental Health Diagnoses: Yes Substance Use Disorders: Yes Previous Attempt: Yes Protective Factors Assessment Employed: Yes ([employer]) Stable Relationships: Yes Good Rapport with Provider: Yes Interval History Identifying Information 40 yo male with hx of psychosis related to drug use, opiate dependence, and recurrent depression admit 04/22 on . Chief Complaint "I'm fine, thinking about how to get my methadone this weekend when I don't have a ride". Review of Systems Sleep Information Total Hours of Sleep: 6.5 Sleep Comments: pt on q-15 miinute checks Meal Information Percent Meal Consumed - Breakfast: 15 Percent Meal Consumed - Lunch: 100 Percent Meal Consumed - Dinner: 50 Subjective Subjective Patient was seen & assessed and interval progress reviewed with treatment team. no new issues overnight. Patient reports feeling calmer. Still prefers to nap in dark room between groups so appears flat when available for sessions but brightens with peers. Denies SI. Physical Exam Psychiatric Orientation: alert and oriented x 3 Apperance: appropriately dressed and appropriately groomed Eye Contact: good eye contact Motor Behavior: no abnormal motor movements Speech: normal rate/rhythm/volume of speech Affect: + depressed affect and + constricted affect Mood: + depressed mood Thought Process: goal directed thought process Thought Content: reality based without delusions Suicidal Thoughts: denies suicidal thoughts and denies suicidal plan Homicidal Thoughts: denies homicidal thoughts Hallucinations: no auditory hallucinations and no visual hallucinations Cognition: attention grossly intact and language grossly intact Estimated Intelligence: consistent with education level Insight: + fair insight Judgement: + fair judgement Vital Signs (Past 24 Hours) Last Vital Signs Temp 36.6 C 05/05/21 06:44 Pulse 79 05/05/21 17:19 Resp 16 05/05/21 17:19 BP 122/86 05/05/21 17:19 Pulse Ox 97 04/23/21 06:00 Results & Data ([facility]) Current Inpatient Medications Current Inpatient Medications: Current Inpatient Medications Acetaminophen (Acetaminophen 325 Mg Tab) 650 mg PO Q4H PRN PRN Reason: Headache or Minor Fever Stop: 05/22/21 16:11 Al Hydrox/Mg Hydrox/Simethicone (Aluminum/Magnesium Susp 30 Ml Udc) 30 ml PO Q4H PRN PRN Reason: GI Upset Stop: 05/22/21 16:11 Bismuth Subsalicylate (Bismuth Subsalicylate Liqd 236 Ml) 15 ml PO PRN PRN PRN Reason: Loose Stool Stop: 05/22/21 16:11 Bupropion HCl (Bupropion Xl 300 Mg Tabcr) 300 mg PO QAM RAMÓN Stop: 06/01/21 08:59 Last Admin: 05/05/21 09:05 Dose: 300 mg Documented by: Clonidine HCl (Clonidine Hcl 0.1 Mg Tab) 0.1 mg PO PC RAMÓN Stop: 06/01/21 12:59 Last Admin: 05/05/21 17:24 Dose: 0.1 mg Documented by: Clozapine (Clozapine 25 Mg Tab) 50 mg PO HS RAMÓN Stop: 05/22/21 20:59 Last Admin: 05/04/21 20:38 Dose: 50 mg Documented by: Docusate Sodium (Docusate Sodium 100 Mg Cap) 100 mg PO BID RAMÓN Stop: 06/01/21 11:24 Last Admin: 05/05/21 09:06 Dose: 100 mg Documented by: Hydroxyzine HCl (Hydroxyzine Hcl 25 Mg Tab) 50 mg PO Q4H PRN PRN Reason: Anxiety Stop: 05/22/21 16:11 Last Admin: 05/03/21 17:56 Dose: 50 mg Documented by: Hydroxyzine HCl (Hydroxyzine Hcl 25 Mg Tab) 50 mg PO HSZ RAMÓN Stop: 06/01/21 21:59 Last Admin: 05/04/21 20:37 Dose: 50 mg Documented by: Magnesium Hydroxide (Magnesium Hydroxide Susp 30 Ml Udc) 30 ml PO DAILY PRN PRN Reason: Constipation Stop: 05/22/21 16:11 Metformin HCl (Metformin Hcl 500 Mg Tab) 500 mg PO BIDM RAMÓN Stop: 05/22/21 18:59 Last Admin: 05/05/21 17:24 Dose: 500 mg Documented by: Methadone HCl (Methadone Oral Soln 2 Mg/Ml) 94 mg PO DAILY RAMÓN Stop: 05/07/21 08:59 Last Admin: 05/05/21 09:05 Dose: 94 mg Documented by: Non-Formulary Medication (Patient's Own Controlled Med) 1 ea PO DAILY RAMÓN Stop: 05/07/21 08:59 Last Admin: 05/05/21 09:06 Dose: Not Given Documented by: Polyethylene Glycol (Polyethylene (Miralax) 17 Gm Pack) 17 gm PO DAILY RAMÓN Stop: 06/01/21 11:24 Last Admin: 05/05/21 09:05 Dose: 17 gm Documented by: Prazosin HCl (Prazosin Hcl 1 Mg Cap) 5 mg PO QPM RAMÓN Stop: 05/22/21 20:59 Last Admin: 05/04/21 20:38 Dose: 5 mg Documented by: Simvastatin (Simvastatin 20 Mg Tab) 20 mg PO QPM RAMÓN Stop: 05/22/21 20:59 Last Admin: 05/04/21 20:38 Dose: 20 mg Documented by: Sodium Chloride (Sodium Chloride 0.65% Na Soln 45 Ml ([place])) 1 - 2 sprays NA PRN PRN PRN Reason: Nasal Dryness/Congestion Stop: 05/22/21 16:11 Mental Health & Subst Abuse Tx Psychiatrist Name of Psychiatrist: Linda Gonzales PA-C Psychiatrist's Date of Appointment with Psychiatrist: 05/07/21 Time of Appointment with Psychiatrist: 12 p.m. Psychiatric Appointment Comment: [address] [facility] [place] [address] Therapist Name of Therapist: . Junior Linux Administrator Name of Junior Linux Administrator: [employer] - Emily Guzman Phone Number for Junior Linux Administrator: [phone] Date of Appointment with Junior Linux Administrator: 05/07/21 Time of Appointment with Junior Linux Administrator: 10:00am Case Management Appointment Comment: Emily will set up transportation and meet with pt before [facility] appt. Post Discharge Appointments Primary Care Physician Name Of Family Doctor: [facility] - Dr. Loyola Primary [facility] Time of Appointment with PCP: Please follow up as needed Provider Appointment Comment: [address] [facility], [place] [address] Welt Rander Name of Welt Rander: Yuri Zhou Phone Number of Welt Rander: [phone] Date of Appointment with Welt Rander: 05/10/21 Time of Appointment with Welt Rander: Continue to see per routine - call at any time if/when needed Welt Rander Appointment Comment: [facility] Contact Information Discharge Discharge Address: [address] [place] [address], [place] [address], [place] [address]
[2021-05-05] MEDS: SIMVASTATIN 20 MG TAB PO SCH (20:28)
[2021-05-05] MEDS: PRAZOSIN HCL 1 MG CAP PO SCH (20:28)
[2021-05-05] MEDS: cloZAPine 25 MG TAB PO SCH (20:28)
[2021-05-05] MEDS: hydrOXYzine HCl 25 MG TAB PO SCH (20:28)
[2021-05-06 07:03] VITALS: BP 116/81; TEMP 97.7
[2021-05-06 09:34] LABS: Basophils # (auto) 0.05 K/uL (0-0.2); Basophils % (auto) 0.4 %; Eosinophils # (auto) 0.21 K/uL (0-0.5); Eosinophils % (auto) 1.9 %; Hematocrit (blood only) 49.4 % (42-52); Hemoglobin 16.3 g/dL (14.0-18.0); Immature Granulocytes % (auto) 0.9 %; Lymphocytes % (auto) 38.6 %; Mean Corpuscular Hemoglobin 31.5 pg (25-34); Mean Corpuscular Volume 95.6 fL (80-100); Mean Platelet Volume 9.5 fL (7.4-10.4); Monocytes # (auto) 0.94 K/uL (0.11-0.59); Monocytes % (auto) 8.4 %; Neutrophils # (auto) 5.55 K/uL (1.4-6.5); Neutrophils % (auto) 49.8 %; Platelet Count 270 K/uL (130-400); RDW Coefficient of Variation 13.7 % (11.5-14.5); Red Blood Count 5.17 M/uL (4.7-6.1); White Blood Count 11.15 K/uL (4.8-10.8)
[2021-05-06] MEDS: POLYETHYLENE (MIRALAX) 17 GM PACK PO SCH (09:49)
[2021-05-06] MEDS: cloNIDine HCL 0.1 MG TAB PO SCH (09:51)
[2021-05-06] MEDS: metFORMIN HCL 500 MG TAB PO SCH (09:51)
[2021-05-06] MEDS: METHADONE ORAL SOLN 2 MG/ML PO SCH (09:51)
[2021-05-06] MEDS: buPROPion XL 300 MG TABCR PO SCH (09:51)
[2021-05-06] MEDS: DOCUSATE SODIUM 100 MG CAP PO SCH (09:51)
[2021-05-06] MEDS: PATIENT'S OWN CONTROLLED MED 2 PO SCH (09:52)
[2021-05-06] MEDS: hydrOXYzine HCl 25 MG TAB PO PRN (10:38)
[2021-05-06 10:40] VITALS: PULSE 81
--- NOTE | 2021-05-06 10:41 | Discharge Summary ---
Date of Service May 06, 2021 History of Present Illness Michael reports worsening mood, low energy, anxiety, and difficulty concentrating for several weeks "if not months" despite community supports. He denies paranoia, meth use, or med noncompliance which have generally been involved with past admissions. 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 He denies missing any methadone maintenance visits/withdrawal. He has been isolating himself, or at least not talking as much/sharing his feelings with his long time girlfriend but she has noted his disrupted sleep. It takes him several hours to fall asleep due to "racing thoughts" that he can not really elaborate on. He did test positive for benzodiazepines and MJ in the emergency and he states this is rare use, states took 1 Xanax from a friend last week to "chill". He woke up yesterday feeling that he needed to "end it" with thoughts to either "slit my wrists" or OD. He denies any periods of irritable mood or rambo. He denies howard or delusions. He denies any change in his overall health but testosterone levels have been monitored by Dr. Loyola and lane. If persists, he may meet criteria for authorization for testosterone replacement therapy. Physical Exam Mental Examination See admission H&P and DOD summary. Vital Signs (Past 24 Hours) Last Vital Signs Temp 36.5 C 05/06/21 10:37 Pulse 81 05/06/21 10:37 Resp 16 05/06/21 10:37 BP 116/81 05/06/21 10:37 Pulse Ox 97 05/06/21 10:37 Principal Diagnosis major depressive disorder Psychiatric Data See daily stay summary. In short, safety was maintained and the patient was cooperative with care. Medication changes included increase and shifting of clonidine dosing to address breakthrough anxiety and retrial of Wellbutrin XL for depression. He tolerated Wellbutrin XL 300 mg much better than 450 mg, perhaps due to speed of titration. A family session was held with his partner and safety plan was completed prior to discharge. Michael had anxiety re: his transition home given length of hospitalization and also his transition back to work. He is required to appear at methadone clinic Sat to get his weekend doses and was given bus tokens as otherwise did not have transportation. He does seem to have flattening of mood after am dose of methadone and tends to nap in a dark room several hours later. He is proud of his progress with sober living and we reviewed how now he is experiencing more of his emotions. He was able to manage his anxiety but did receive prn Vistaril around discharge. He was given short supplies of medications as has his outpatient appointments tomorrow. The risks that can be mitigated during an acute inpatient stay have been addressed. Day of Discharge Assessment Today the patient is nervous but voices readiness for discharge. They note improvement in mood and deny thoughts to harm self or others. Thoughts remain organized and they are improved from admission. There is no evidence of psychosis. They agree to take mediations as prescribed and keep follow-up appointments. They are stable for discharge to outpatient level of care. Transition of Care Transition Of Care Record: was reviewed with the patient Advance Directives Advance Directives Information Provided: Yes Advance Directives: No Mental Health Advance Directive: No Advance Directives on File: No Living Will: No Power of Medical Laboratory Assistant: No Advance Directives Reason:: Declines as Mental Health Visit. Risk Factors Assessment Male: Yes : Yes Do You Have Access To A Gun?: No Mental Health Diagnoses: Yes Substance Use Disorders: Yes Previous Attempt: Yes Protective Factors Assessment Employed: Yes ([employer]) Stable Relationships: Yes Good Rapport with Provider: Yes Tobacco Cessation at Discharge Tobacco Cessation Medication Prescribed at Discharge: Not Applicable/Non-Smoker Total Time Total Time Spent: Greater Than 30 Minutes Total Time Includes: Examination of the patient, Discharge Planning and Medication Reconciliation Discharge Data Lab Results 04/22/21 04/22/21 04/22/21 12:32 12:32 12:32 WBC RBC Hgb Hct MCV MCH MCHC RDW Std Deviation RDW Coeff of Sunshine Plt Count MPV Immature Gran % (Auto) Neut % (Auto) Lymph % (Auto) [place] % (Auto) Eos % (Auto) Baso % (Auto) Neut # (Auto) Lymph # (Auto) [place] # (Auto) Eos # (Auto) Baso # (Auto) Immature Gran # (Auto) Sodium Potassium Chloride Carbon Dioxide Anion Gap BUN Creatinine Est Cr Clr Drug Dosing Est GFR ( Amer) Est GFR (Non-Af Amer) BUN/Creatinine Ratio Glucose Estimat Average Glucose Hemoglobin A1c Calcium Total Bilirubin AST ALT Alkaline Phosphatase Total Protein Albumin Globulin Albumin/Globulin Ratio Triglycerides Cholesterol LDL Cholesterol, Calc VLDL Cholesterol, Calc HDL Cholesterol Cholesterol/HDL Ratio TSH Total Testosterone Free Testosterone Urine Color Dark Yellow Urine Appearance Cloudy A Urine pH 5.0 Ur Specific Metz 1.025 Urine Protein Negative Urine Glucose (UA) Negative Urine Ketones Trace H Urine Blood Negative Urine Nitrite Negative Urine Bilirubin 1+ H Urine Urobilinogen Negative Ur Leukocyte Esterase 1+ H Urine WBC (Auto) 5-10 H Urine RBC (Auto) 0-4 U Hyaline Cast (Auto) 5-10 H U Epithel Cells (Auto) 10-20 H Urine Bacteria (Auto) Negative Salicylates Urine Opiates Screen Neg Ur Methadone, Qual Pos H U Methadone Metabolites >64089 H Ur Methadone Confirm >09549 H Acetaminophen Urine Barbiturates Neg Ur Phencyclidine (PCP) Neg U Amphetamin/Meth Scrn Neg MDMA (Ecstasy) Screen Neg U OH-Alprazolam Confrm 104 H U Benzodiazepines Scrn Pos H 7-Amino Clonazepam NEGATIVE Ur Nordiazepam Confirm NEGATIVE U OH-ethylflurazepam NEGATIVE U Lorazepam Cnf GC/MS NEGATIVE U Oxazepam Confm GC/MS NEGATIVE Ur Temazepam Confirm NEGATIVE U OH-Triazolam Confirm NEGATIVE U OH-Midazolam Confirm NEGATIVE Ur Cocaine Metabolite Neg U Marijuana (THC) Screen Pos H U Marijuana THC Carboxy 1760 H Drug Screen Comment SEE NOTE Ethyl Alcohol mg/dL COVID-19 Eval Order SARS-CoV-2 (PCR) 04/22/21 04/22/21 04/22/21 12:54 12:54 12:54 WBC 9.54 RBC 4.84 Hgb 15.2 Hct 45.2 MCV 93.4 MCH 31.4 MCHC 33.6 RDW Std Deviation 46.2 RDW Coeff of Sunshine 13.5 Plt Count 262 MPV 9.9 Immature Gran % (Auto) 0.2 Neut % (Auto) 77.8 Lymph % (Auto) 18.2 Horry % (Auto) 3.6 Eos % (Auto) 0.0 Baso % (Auto) 0.2 Neut # (Auto) 7.42 H Lymph # (Auto) 1.74 Horry # (Auto) 0.34 Eos # (Auto) 0.00 Baso # (Auto) 0.02 Immature Gran # (Auto) 0.02 Sodium 143 Potassium 4.2 Chloride 110 H Carbon Dioxide 28 Anion Gap 5.0 BUN 7 Creatinine 1.37 Est Cr Clr Drug Dosing 79.4 Est GFR ( Amer) 74.8 Est GFR (Non-Af Amer) 64.5 BUN/Creatinine Ratio 4.7 L Glucose 164 H Estimat Average Glucose Hemoglobin A1c Calcium 9.1 Total Bilirubin 0.5 AST 55 H ALT 88 H Alkaline Phosphatase 60 Total Protein 7.7 Albumin 3.5 Globulin 4.2 H Albumin/Globulin Ratio 0.8 L Triglycerides Cholesterol LDL Cholesterol, Calc VLDL Cholesterol, Calc HDL Cholesterol Cholesterol/HDL Ratio TSH 1.060 Total Testosterone Free Testosterone Urine Color Urine Appearance Urine pH Ur Specific Metz Urine Protein Urine Glucose (UA) Urine Ketones Urine Blood Urine Nitrite Urine Bilirubin Urine Urobilinogen Ur Leukocyte Esterase Urine WBC (Auto) Urine RBC (Auto) U Hyaline Cast (Auto) U Epithel Cells (Auto) Urine Bacteria (Auto) Salicylates < 1.7 L Urine Opiates Screen Ur Methadone, Qual U Methadone Metabolites Ur Methadone Confirm Acetaminophen < 2 L Urine Barbiturates Ur Phencyclidine (PCP) U Amphetamin/Meth Scrn MDMA (Ecstasy) Screen U OH-Alprazolam Confrm U Benzodiazepines Scrn 7-Amino Clonazepam Ur Nordiazepam Confirm U OH-ethylflurazepam U Lorazepam Cnf GC/MS U Oxazepam Confm GC/MS Ur Temazepam Confirm U OH-Triazolam Confirm U OH-Midazolam Confirm Ur Cocaine Metabolite U Marijuana (THC) Screen U Marijuana THC Carboxy Drug Screen Comment Ethyl Alcohol mg/dL COVID-19 Eval Order SARS-CoV-2 (PCR) 04/22/21 04/22/21 04/22/21 12:54 13:17 13:17 WBC RBC Hgb Hct MCV MCH MCHC RDW Std Deviation RDW Coeff of Sunshine Plt Count MPV Immature Gran % (Auto) Neut % (Auto) Lymph % (Auto) [place] % (Auto) Eos % (Auto) Baso % (Auto) Neut # (Auto) Lymph # (Auto) Horry # (Auto) Eos # (Auto) Baso # (Auto) Immature Gran # (Auto) Sodium Potassium Chloride Carbon Dioxide Anion Gap BUN Creatinine Est Cr Clr Drug Dosing Est GFR ( Amer) Est GFR (Non-Af Amer) BUN/Creatinine Ratio Glucose Estimat Average Glucose Hemoglobin A1c Calcium Total Bilirubin AST ALT Alkaline Phosphatase Total Protein Albumin Globulin Albumin/Globulin Ratio Triglycerides Cholesterol LDL Cholesterol, Calc VLDL Cholesterol, Calc HDL Cholesterol Cholesterol/HDL Ratio TSH Total Testosterone Free Testosterone Urine Color Urine Appearance Urine pH Ur Specific Metz Urine Protein Urine Glucose (UA) Urine Ketones Urine Blood Urine Nitrite Urine Bilirubin Urine Urobilinogen Ur Leukocyte Esterase Urine WBC (Auto) Urine RBC (Auto) U Hyaline Cast (Auto) U Epithel Cells (Auto) Urine Bacteria (Auto) Salicylates Urine Opiates Screen Ur Methadone, Qual U Methadone Metabolites Ur Methadone Confirm Acetaminophen Urine Barbiturates Ur Phencyclidine (PCP) U Amphetamin/Meth Scrn MDMA (Ecstasy) Screen U OH-Alprazolam Confrm U Benzodiazepines Scrn 7-Amino Clonazepam Ur Nordiazepam Confirm U OH-ethylflurazepam U Lorazepam Cnf GC/MS U Oxazepam Confm GC/MS Ur Temazepam Confirm U OH-Triazolam Confirm U OH-Midazolam Confirm Ur Cocaine Metabolite U Marijuana (THC) Screen U Marijuana THC Carboxy Drug Screen Comment Ethyl Alcohol mg/dL < 3.0 COVID-19 Eval Order Covid19 at [facility] SARS-CoV-2 (PCR) NEGATIVE 04/24/21 04/24/21 04/24/21 08:36 08:36 08:36 WBC RBC Hgb Hct MCV MCH MCHC RDW Std Deviation RDW Coeff of Sunshine Plt Count MPV Immature Gran % (Auto) Neut % (Auto) Lymph % (Auto) [place] % (Auto) Eos % (Auto) Baso % (Auto) Neut # (Auto) Lymph # (Auto) [place] # (Auto) Eos # (Auto) Baso # (Auto) Immature Gran # (Auto) Sodium Potassium Chloride Carbon Dioxide Anion Gap BUN Creatinine Est Cr Clr Drug Dosing Est GFR ( Amer) Est GFR (Non-Af Amer) BUN/Creatinine Ratio Glucose Estimat Average Glucose 134 Hemoglobin A1c 6.3 H Calcium Total Bilirubin AST ALT Alkaline Phosphatase Total Protein Albumin Globulin Albumin/Globulin Ratio Triglycerides 160 H Cholesterol 135 LDL Cholesterol, Calc 67 VLDL Cholesterol, Calc 32 HDL Cholesterol 36 Cholesterol/HDL Ratio 4 TSH Total Testosterone 1078 Free Testosterone 162.8 H Urine Color Urine Appearance Urine pH Ur Specific Metz Urine Protein Urine Glucose (UA) Urine Ketones Urine Blood Urine Nitrite Urine Bilirubin Urine Urobilinogen Ur Leukocyte Esterase Urine WBC (Auto) Urine RBC (Auto) U Hyaline Cast (Auto) U Epithel Cells (Auto) Urine Bacteria (Auto) Salicylates Urine Opiates Screen Ur Methadone, Qual U Methadone Metabolites Ur Methadone Confirm Acetaminophen Urine Barbiturates Ur Phencyclidine (PCP) U Amphetamin/Meth Scrn MDMA (Ecstasy) Screen U OH-Alprazolam Confrm U Benzodiazepines Scrn 7-Amino Clonazepam Ur Nordiazepam Confirm U OH-ethylflurazepam U Lorazepam Cnf GC/MS U Oxazepam Confm GC/MS Ur Temazepam Confirm U OH-Triazolam Confirm U OH-Midazolam Confirm Ur Cocaine Metabolite U Marijuana (THC) Screen U Marijuana THC Carboxy Drug Screen Comment Ethyl Alcohol mg/dL COVID-19 Eval Order SARS-CoV-2 (PCR) 04/29/21 05/06/21 07:54 09:17 WBC 10.57 11.15 H RBC 5.04 5.17 Hgb 16.0 16.3 Hct 47.5 49.4 MCV 94.2 95.6 MCH 31.7 31.5 MCHC 33.7 33.0 RDW Std Deviation 48.0 H 48.0 H RDW Coeff of Sunshine 14.1 13.7 Plt Count 244 270 MPV 9.5 9.5 Immature Gran % (Auto) 1.0 0.9 Neut % (Auto) 44.0 49.8 Lymph % (Auto) 41.3 38.6 Horry % (Auto) 10.3 8.4 Eos % (Auto) 2.6 1.9 Baso % (Auto) 0.8 0.4 Neut # (Auto) 4.65 5.55 Lymph # (Auto) 4.37 H 4.30 H Horry # (Auto) 1.09 H 0.94 H Eos # (Auto) 0.27 0.21 Baso # (Auto) 0.08 0.05 Immature Gran # (Auto) 0.11 H 0.10 H Sodium Potassium Chloride Carbon Dioxide Anion Gap BUN Creatinine Est Cr Clr Drug Dosing Est GFR ( Amer) Est GFR (Non-Af Amer) BUN/Creatinine Ratio Glucose Estimat Average Glucose Hemoglobin A1c Calcium Total Bilirubin AST ALT Alkaline Phosphatase Total Protein Albumin Globulin Albumin/Globulin Ratio Triglycerides Cholesterol LDL Cholesterol, Calc VLDL Cholesterol, Calc HDL Cholesterol Cholesterol/HDL Ratio TSH Total Testosterone Free Testosterone Urine Color Urine Appearance Urine pH Ur Specific Metz Urine Protein Urine Glucose (UA) Urine Ketones Urine Blood Urine Nitrite Urine Bilirubin Urine Urobilinogen Ur Leukocyte Esterase Urine WBC (Auto) Urine RBC (Auto) U Hyaline Cast (Auto) U Epithel Cells (Auto) Urine Bacteria (Auto) Salicylates Urine Opiates Screen Ur Methadone, Qual U Methadone Metabolites Ur Methadone Confirm Acetaminophen Urine Barbiturates Ur Phencyclidine (PCP) U Amphetamin/Meth Scrn MDMA (Ecstasy) Screen U OH-Alprazolam Confrm U Benzodiazepines Scrn 7-Amino Clonazepam Ur Nordiazepam Confirm U OH-ethylflurazepam U Lorazepam Cnf GC/MS U Oxazepam Confm GC/MS Ur Temazepam Confirm U OH-Triazolam Confirm U OH-Midazolam Confirm Ur Cocaine Metabolite U Marijuana (THC) Screen U Marijuana THC Carboxy Drug Screen Comment Ethyl Alcohol mg/dL COVID-19 Eval Order SARS-CoV-2 (PCR) Hospital Course (1) Schizoaffective disorder, depressive type: (2) Long-term current use of methadone for opiate dependence: (3) Testosterone deficiency in male: 05/05/21--patient calm, may benefit from methadone reduction on outpatient basis, staff coordinating with [facility] to ensure transportation/no missed doses as significant stress that could trigger symptom relapse soon after discharge. 05/03/21--continue current meds and treatment plan 05/02/21--titrate clonidine to TID dosing and shift to coincide with meals for better coverage for anxiety, scheduled Vistaril at hs. 05/01/21--decrease Wellbutrin to 300 mg daily. Reviewed italics: 04/23/21--The patient was admitted to the [facility] ([facility] mental health unit) on q15 min checks (behavioral with suicide precautions) for safety. The patient will participate in group, recreational, and milieu therapies and will be offered additional individual and family sessions as clinically appropriate. Valeria Pascal PA-C was contacted to coordinate care with [facility] and to discuss medication options as would benefit from an antidepressant (provided med hx above) with past clear response to Wellbutrin. She feels strongly that low T is contributing to his anxiety and depression. He has received 1 injection under direction of Dr. Loyola but insurance requires 3 blood draws to authorize. Will repeat #2 here with his am fasting metabolic labs. Risks/benefits/alternatives were reviewed re: his current medication (primarily Clozaril) and restart Wellbutrin. Discussion included but was not limited to need for metabolic and TD monitoring. He has no abnormal motor movements at baseline. Reviewed with patient that benzodiazepines are contraindicated in combination with methadone and can result in respiratory depression and even . This discussion around this and his MJ use lasted more than 5 min and constitutes a brief intervention. He was receptive but minimized use. He was made aware of depressant nature of these substances and how can interact with his medications. He is agreeable to continue therapy with [facility]'s methadone program. His dose of methadone was confirmed with [facility] before administered by hospital. 04/24/2021atient is behaviorally appropriate, attending groups and compliant with medications. Mood remains depressed, we will continue current treatment plan 04/25/2021we will increase patient's Wellbutrin to 300 mg p.o. every morning starting tomorrow morning. 04/26/2021atient tolerating increased dosage of Wellbutrin well. Mood still remains low. 04/27/2021atient making progress although still feeling depressed. Improved from admission. 04/28/2021atient still reporting low mood, compliant with medications and appropriate with peers. We will continue current regimen for now. 04/29/2021ontinue current regimen for now. Patient still with low dysphoric mood. 04/30/2021--continue current regimen, patient appears to have minimal improvement with Wellbutrin regimen thus far. Will continue for a couple more days before reassessing efficacy Mental Health & Subst Abuse Tx Psychiatrist Name of Psychiatrist: Linda Gonzales PA-C Psychiatrist's Date of Appointment with Psychiatrist: 05/07/21 Time of Appointment with Psychiatrist: 12 p.m. Psychiatric Appointment Comment: [address], [place] [address] Therapist Name of Therapist: . Child Life Specialist Name of Child Life Specialist: [facility] Emily Guzman Phone Number for Child Life Specialist: [phone] Date of Appointment with Child Life Specialist: 05/07/21 Time of Appointment with Child Life Specialist: 10:00am Case Management Appointment Comment: Emily will set up transportation and meet with pt before [facility] appt. Post Discharge Appointments Primary Care Physician Name Of Family Doctor: [facility] Time of Appointment with PCP: Please follow up as needed Provider Appointment Comment: [address] [place] [address] Commercial Estimator Name of Commercial Estimator: Yuri Zhou Phone Number of Commercial Estimator: [phone] Date of Appointment with Commercial Estimator: 05/10/21 Time of Appointment with Commercial Estimator: Continue to see per routine - call at any time if/when needed Commercial Estimator Appointment Comment: [facility] Smoking Cessation Counseling Tobacco Cessation Medication Prescribed at Discharge: Not Applicable/Non-Smoker Other #1: Name of Aftercare Appointment: [place] [facility] Phone Number of Aftercare Appointment: Time of Aftercare Appointment: Continue to see per routine - call at any time if/when needed Aftercare Appointment Comment: [address], [place] [address] Release of Information Aftercare Appointment: Obtained, Reviewed and Signed #2: Name of Aftercare Appointment: [facility] Phone Number of Aftercare Appointment: [phone] Date of Aftercare Appointment: 05/07/21 Time of Aftercare Appointment: 11 a.m. Aftercare Appointment Comment: [address] Release of Information Aftercare Appointment: Obtained, Reviewed and Signed #3: Name of Aftercare Appointment: [facility] Phone Number of Aftercare Appointment: [phone] Date of Aftercare Appointment: 05/28/21 Time of Aftercare Appointment: 10:30 a.m. Aftercare Appointment Comment: [address] Release of Information Aftercare Appointment: Obtained, Reviewed and Signed Contact Information Discharge Discharge Address: [address] [place] [address], [place] [address] Discharge Plan Discharge Items Patient Disposition: Home - Self-Care Reason For Visit: SUICIDAL THOUGHTS Discharge Diagnosis: major depressive disorder Activity: Resume your previous activity Non-emergency contact: Primary Care Provider, Psychiatrist, Therapist and Portfolio Assistant Call non-emergency contact if: you have any medication questions and your symptoms worsen Follow-up/Referrals: Chichi Loyola DO [Primary Care Provider] - Diet: Regular Addtl Attending Provider Instructions: SPECIAL CARE INSTRUCTIONS: 1. Follow through with your scheduled aftercare appointments. If unable to keep an appointment, please call to reschedule. 2. Take your medication only as prescribed. Medication should not be changed or stopped without the approval of your doctor. In the event of worsening symptoms or concerns about side effects, contact your doctor immediately. 3. Utilize new healthy coping skills, anger management skills, and stress management skills learned during your hospitalization. Journal feelings and process them with a support person. Identify stressors or situations that may result in relapse, deterioration or inappropriate behaviors and develop a plan to deal with those issues. 4. If your coping skills are ineffective and you are in crisis, contact your outpatient providers for direction. If unable to reach your providers, please call the [facility] CRISIS LINE AT , go to the [facility] walk-in center at [address], [address], [place], or go to the closest Emergency Room. 5. Avoid alcohol and un-prescribed drugs. 6. You have been provided with the Mental Health Advance Directives Pamphlet for your review. 7. Your condition is stable for discharge to outpatient level of care, but recovery is an ongoing process. Ifthoughts to harm yourself or others return, follow the safety plan developed during your stay. Planning for a safe return home includes securing weapons. Our treatment team recommends weaponsbe removed from the home until your outpatient provider reassesses your progress. In rare cases where the items themselvescannot be removed, guns and ammunitionshould be secured separatelyand keys stored by a reliable personoutside of the home. If you were admitted on an involuntary commitment, the police or other legal authorities may be involved in this process. AFTERCARE APPOINTMENTS: * Please call your insurance company prior to your scheduled appointment to confirm your aftercare providers are covered. Take your insurance information to your appointments. WHO TO CALL AND WHEN: Medical Emergencies: For questions or emergencies related to your hospital stay, please contact the Inpatient Behavioral Health Unit at [phone]. A jig maker is on-call 13/03 for the Behavioral Health Unit for emergencies At any time you feel your situation is an emergency, you may also call 911 immediately. Pending Studies at Discharge: No Stand-Alone Forms: [employer], Smoking Cessation Medications and DC Order Prescriptions: New clonidine HCl 0.1 mg Tablet 0.1 mg PO PC 10 Days Qty: 30 RF: 0 hydroxyzine HCl 25 mg Tablet 50 mg PO Q4H PRN (Reason: Anxiety) 3 Days Qty: 10 RF: 0 bupropion HCl 300 mg Tablet Extended Release 24 Hr 300 mg PO QAM 10 Days Qty: 10 RF: 0 Continued prazosin 5 mg capsule 5 mg PO HS RF: 0 Abilify Maintena 400 mg suspension,extended rel recon 400 mg IM MONTHLY RF: 0 methadone 10 mg/5 mL Solution 94 mg PO DAILY RF: 0 metformin 500 mg tablet 500 mg PO BIDM RF: 0 simvastatin 20 mg tablet 20 mg PO QPM RF: 0 clozapine 50 mg tablet 50 mg PO HS RF: 0 aripiprazole 5 mg Tablet See Rx Instructions .ROUTE .COMPLEX RF: 0 Discontinued clonidine HCl 0.1 mg tablet 0.1 mg PO BID RF: 0 testosterone cypionate 200 mg/mL oil See Rx Instructions .ROUTE .COMPLEX RF: 0 cyclobenzaprine 10 mg tablet 10 mg PO Q8H PRN (Reason: Muscle Spasm) RF: 0 Discharge Orders: Discharge Order (Routine); Ordered 05/06/21 Ordered By: Genet Israel Admission Data Admit Date/Time: 04/22/21 17:05 Attending Provider: Genet Israel Admit Provider: Genet Israel Primary Care Provider: Chichi Loyola Other Interventions: Discharge Summary Assessment (RN) Last Done: 05/06/21 10:37 PSY Interdisciplinary Discharge Planning Last Done: 05/06/21 10:40 Coding Level of Care Code 85040 D/C day mgmt > 30 min Diagnoses Schizoaffective disorder, depressive type F25.1 Long-term current use of methadone for opiate dependence F11.20 Testosterone deficiency in male E29.1
--- NOTE | 2021-05-13 10:13 | Coding Query ---
CODING QUERY To promote full compliance with coding requirements relating to patient care, provider participation is requested in all cases of welder/fitter uncertainty. Please assist us with the question(s) below: Coding Question(s): The H&P documents history of Major Depressive Disorder, recurrent severe without psychotic features and the Impression documents Schizoaffective disorder, depressive type and the Discharge Summary documents in the Principal Diagnosis area, "major depressive disorder" and the Hospital Course documents Schizoaffective disorder, depressive type. Please specify below, the diagnosis most responsible for the admission. ( ) Schizoaffective Disorder, Depressive Type ( ) Major Depressive Disorder, recurrent severe without psychotic features ( ) Major Depressive Disorder, Unspecified ( ) Major Depressive Disorder, Other: Please Specify ( ) Other: Please Specify Physician's Response(s): the difference was related to his outpatient vs inpatient diagnoses. On our unit his psychotic symptoms have always been substance induced so the more conservative MDD, recurrent, severe without psychotic features is correct. Sorry fo the confusion. Thank you Irma Murphy Principal Diagnosis: "that condition established after study, to be chiefly responsible for occasioning the admission of the patient to the hospital for care." Co-Existing Principal Diagnosis: "when two or more diagnoses equally meet the criteria for principal diagnosis as determined by the circumstances of admission, diagnostic work up, and/or therapy provided, and the Alphabetic Index, Tabular List, or another coding guideline does not provide sequencing direction, any one of the diagnoses may be sequenced first." "When the physician has documented what appears to be a current diagnosis in the body of the record, but has not included the diagnosis in the final diagnostic statement, the physician should be asked whether the diagnosis should be added." ([facility] 2 QTR90. p3-4) CHELSEY
== END 2021-05-06 11:00 | disposition home or self-care (01) | DRG 885 ==
LOC: ED 12:10 → 3S 16:56 → SUATTDRO 17:05 → 3S 04-26 20:54

== ENCOUNTER 2022-07-29 12:03 | Inpatient (IN) ==
[2022-07-29] MEDS ORDERED: LORazepam 1 MG TAB SL STA (13:36)
[2022-07-29] MEDS ORDERED: haloperidoL 5 MG TAB PO STA (14:14)
[2022-07-29] MEDS ORDERED: LABETALOL HCL 100 MG TAB PO ONE (14:54)
--- NOTE | 2022-07-29 14:54 | Emergency Department Note ---
Impression & Plan Mood disorder, Suicidal ideation ED Provider Note CHIEF COMPLAINT: [facility] HISTORY OF PRESENT ILLNESS: This 42-year-old male patient presents to the emergency department with complaints of depression and anxiety. He states he has not been able to care for himself, he has not showered in 2 weeks prior to today. He states he showered "out of courtesy for us." His girlfriend packed his bags and told him this is what needed to happen. He has been having difficulty eating, sleeping. He did quit his job about 6 weeks ago because he was having difficulty processing at a higher level. He states he does have a history of drug abuse and was on methadone but stopped approximately 4 weeks ago , finishing his taper. He states he has rapid thoughts but they are all his own. He does not hear voices. The patient states he feels inside and he is just a shell. Sometimes he does feel extreme rage and feels as though he is likely to hurt himself or someone else but does not necessarily feel homicidal. He has googled physician assisted suicide so that he would not feel pain. He states there are doctors in the world that would help him. Patient also states he has 2 children aged 10 and 13 that live with their mother. He does see them and states it is very difficult to pretend that "things are fine." The patient states he no longer uses substances, he does not drink alcohol. He does smoke cigarettes occasionally and does use medical marijuana but he does not feel that this is effective. He states he has been treated for psychiatric issues in the past but he thinks this makes his brain worse. Patient states his has "been a joke." Mother about 10 years ago from multiple sclerosis. He states his father "like to democrat" most weekends and eventually this because his parents to split. A young age he began to drink with his father which eventually led to his drug use. He states he had more of a democrat mike relationship with his father then a father-son relationship. He does occasionally see his father now but states he "helps when he can." The patient feels he is in good standing with his live-in girlfriend who works full- time and stands by him. He does complain of headaches quite often. He denies any vomiting or diarrhea. He denies any visual changes or neck stiffness. He does complain of significant difficulty sleeping. REVIEW OF SYSTEMS: A review of systems was performed with positives and pertinent negatives listed in the history of present illness. 10 systems were reviewed and are otherwise negative. ALLERGIES: see below MEDICATIONS: see below PMH: see below SOCIAL HISTORY: see below DDx:Mood disorder, infection, hypoglycemia, electrolyte abnormalities, cardiac sources, intracerebral event, toxicologic, trauma, neurologic, as well as other pathologies. PHYSICAL EXAM: Vital signs reviewed. Markedly hypertensive General: Anxious but otherwise well-appearing 42-year-old male, in discomfort. Rocking back and forth, clutching of the fingers. HEENT: No scleral icterus or conjunctival injection, PERRLA, neck supple. Atraumatic. Cardiovascular: Regular rate and rhythm, no extra sounds. Pulmonary: Clear to auscultation bilaterally, normal work of breathing. Abdomen: Soft, obese, nontender, nondistended, positive bowel sounds. Musculoskeletal: Atraumatic, no peripheral edema. Neurologic: Patient awake alert and oriented x 3, speech is clear Psych: Positive SI without a plan, negative HI Skin: Warm, dry, no rash. Nicotine stained fingers. EMERGENCY DEPARTMENT COURSE/MDM: This patient was evaluated and appeared to be agitated but in no distress. The patient was noted to be hypertensive, tachycardic and anxious. He was given 2 mg of Ativan. He was cooperative and I sat at the bedside with him during my interview. He answered all questions without difficulty. Patient was given 100 mg of p.o. labetalol for hypertension. The patient does seem to be suffering from depression with significant anxiety and has never been evaluated on an inpatient basis. The patient is voluntary for admission at this time. CT imaging of the head was ordered due to the patient's complaint of headache and his high blood pressure. Study is read as negative for acute intracranial abnormality. 3 S. has evaluated the patient and he has been accepted for inpatient management. EKG: To my interpretation reveals a sinus rhythm with marked sinus arrhythmia at 75 bpm. Nonspecific T wave abnormality. Normal ST segments. QTC is 413. No PVC, no PAC. DISPOSITION: Admission Past Med/Surg History Medical History Amphetamine abuse Antisocial personality disorder Cannabis abuse Chronic back pain Elevated transaminase level Flank pain Heroin overdose Major depressive disorder, recurrent severe without psychotic features MRSA carrier Nephrolithiasis Obesity Opiate abuse, episodic Polysubstance abuse Psychosis PTSD (post-traumatic stress disorder) Right ureteral calculus Suicidal ideation Tobacco use disorder Ureteral calculi Surgical History History of cholecystectomy Family History Other No significant family history Social History Smoking Status: Light tobacco smoker (few times per week) Tobacco Type: Cigarettes Preferred Language: Kazakh Communication Ability: Effective Pneumatic Systems Operator Required: No Beliefs That Will Affect Care: None marital status: Single Current Living Situation: Significant Other current occupational status: employed Feels Safe at Home: Yes Assistive Devices: None Allergies Allergies Allergy/AdvReac Type Severity Reaction Status Date / Time No Known Allergies Allergy Verified 10/13/20 15:22 Home Meds Home Medications Medication Instructions Recorded Confirmed No Known Home Medications 07/29/22 07/29/22 Results & Data (ED) Vital Signs Vital Signs - 24 hr 07/29/22 12:16 07/29/22 14:03 07/29/22 16:00 Temperature 36.6 C Temperature Source Temporal Artery Scan Pulse Rate 106 H Pulse Rate [Right Finger] 108 H 108 H Pulse Rhythm [Right Finger] Regular Regular Pulse Strength [Right Finger] Normal Normal Respiratory Rate 18 22 22 Respiratory Effort / Characteristics Non-Labored Non-Labored Spontaneous Non-Labored Spontaneous Respiratory Depth Normal Normal Normal Respiratory Pattern Regular Regular Blood Pressure 210/118 H Blood Pressure [Left Arm] 156/132 H 139/115 H Blood Pressure Mean 148 Blood Pressure Mean [Left Arm] 140 123 Blood Pressure Position [Left Arm] Lying Lying Pulse Oximetry 97 96 95 Oxygen Delivery Method Room Air Room Air Room Air Sepsis Recent Fever Within 48 Hours No Sepsis New/Unexplained Change in Mental Status N/A Sepsis Action Taken by Nursing No Action Required 07/29/22 18:00 Temperature Temperature Source Pulse Rate Pulse Rate [Right Finger] 99 H Pulse Rhythm [Right Finger] Regular Pulse Strength [Right Finger] Normal Respiratory Rate 22 Respiratory Effort / Characteristics Non-Labored Spontaneous Respiratory Depth Normal Respiratory Pattern Regular Blood Pressure Blood Pressure [Left Arm] 140/88 Blood Pressure Mean Blood Pressure Mean [Left Arm] 105 Blood Pressure Position [Left Arm] Lying Pulse Oximetry 96 Oxygen Delivery Method Room Air Sepsis Recent Fever Within 48 Hours Sepsis New/Unexplained Change in Mental Status Sepsis Action Taken by Assisted Medications Current Medication List: was personally reviewed by me Laboratory Data Attestation: I reviewed the patient's lab results. Result diagrams: 07/29/22 16:06 07/29/22 16:06 Lab Results 07/29/22 07/29/22 07/29/22 Range/Units 12:35 12:35 12:35 WBC (4.8-10.8) K/ul RBC (4.63-6.08) M/uL Hgb (14.0-18.0) g/dl Hct (40.1-51.0) % MCV (80.0-100.0) fL MCH (25.0-34.0) pg MCHC (32.0-36.0) g/dL RDW Std Deviation (36.4-46.3) fL RDW Coeff of Sunshine (11.5-14.5) % Plt Count (130-400) K/uL MPV (9.4-12.4) fL Immature Gran % (Auto) % Neut % (Auto) % Lymph % (Auto) % [place] % (Auto) % Eos % (Auto) % Baso % (Auto) % Neut # (Auto) (1.4-6.5) K/uL Lymph # (Auto) (1.2-3.4) K/uL [place] # (Auto) (0.24-0.82) K/uL Eos # (Auto) (0-0.50) K/uL Baso # (Auto) (0-0.2) K/uL Immature Gran # (Auto) (0.00-0.02) K/uL Sodium (136-145) mmol/L Potassium (3.5-5.1) mmol/L Chloride (98-107) mmol/L Carbon Dioxide (21-32) mmol/L Anion Gap (3-11) BUN (6-23) mg/dl Creatinine (0.6-1.4) mg/dl Est Cr Clr Drug Dosing ml/min Est GFR ( Amer) ml/min Est GFR (Non-Af Amer) ml/min BUN/Creatinine Ratio (10-20) Glucose (70-99(Fasting)) mg/dl Calcium (8.5-10.1) mg/dl Total Bilirubin (0.2-1.0) mg/dl AST (13-39) U/L ALT (7-52) U/L Alkaline Phosphatase (34-104) U/L Total Protein (6.0-8.3) gm/dl Albumin (3.4-5.0) gm/dl Globulin (2.5-4.0) gm/dl Albumin/Globulin Ratio (0.9-2) TSH (0.300-4.500) uIu/ml Urine Color Maggie Urine Appearance Cloudy A (Clear) Urine pH 5.5 (4.5-7.5) Ur Specific [place] >= 1.030 (1.000-1.030) Urine Protein 2+ H (Negative) Urine Glucose (UA) Negative (Negative) Urine Ketones Trace H (Negative) Urine Blood Negative (Negative) Urine Nitrite Negative (Negative) Urine Bilirubin 1+ H (Negative) Urine Urobilinogen Negative (Negative) Ur Leukocyte Esterase Negative (Negative) Urine RBC 5-10 H (0-4) /hpf Urine WBC 0-5 (0-5) /hpf Ur Epithelial Cells 0-5 (0-5) /lpf Amorphous Sediment Present A (None Prsent) Urine Bacteria Negative (Negative) Hyaline Casts 0-5 (0-5) /lpf Urine Mucus Present A (None Prsent) Salicylates (3.0-30) mg/dl Urine Opiates Screen Neg (Neg) Ur Methadone, Qual Neg (Neg) Acetaminophen (10-30) ug/ml Urine Barbiturates Neg (Neg) Ur Phencyclidine (PCP) Neg (Neg) U Amphetamin/Meth Scrn Neg (Neg) MDMA (Ecstasy) Screen Neg (Neg) U Benzodiazepines Scrn Neg (Neg) Ur Cocaine Metabolite Neg (Neg) U Marijuana (THC) Screen Pos H (Neg) Ethyl Alcohol mg/dL (<10.0) mg/dl SARS-CoV-2, RNA, NAAT NEGATIVE (NEGATIVE) 07/29/22 07/29/22 07/29/22 Range/Units 16:06 16:06 16:06 WBC 13.64 H (4.8-10.8) K/ul RBC 5.64 (4.63-6.08) M/uL Hgb 17.2 (14.0-18.0) g/dl Hct 50.0 (40.1-51.0) % MCV 88.7 (80.0-100.0) fL MCH 30.5 (25.0-34.0) pg MCHC 34.4 (32.0-36.0) g/dL RDW Std Deviation 42.5 (36.4-46.3) fL RDW Coeff of Sunshine 13.0 (11.5-14.5) % Plt Count 350 (130-400) K/uL MPV 9.3 L (9.4-12.4) fL Immature Gran % (Auto) 0.3 % Neut % (Auto) 67.3 % Lymph % (Auto) 26.3 % [place] % (Auto) 5.3 % Eos % (Auto) 0.2 % Baso % (Auto) 0.6 % Neut # (Auto) 9.18 H (1.4-6.5) K/uL Lymph # (Auto) 3.59 H (1.2-3.4) K/uL [place] # (Auto) 0.72 (0.24-0.82) K/uL Eos # (Auto) 0.03 (0-0.50) K/uL Baso # (Auto) 0.08 (0-0.2) K/uL Immature Gran # (Auto) 0.04 H (0.00-0.02) K/uL Sodium 141 (136-145) mmol/L Potassium 4.1 (3.5-5.1) mmol/L Chloride 106 (98-107) mmol/L Carbon Dioxide 27 (21-32) mmol/L Anion Gap 8 (3-11) BUN 10 (6-23) mg/dl Creatinine 1.18 (0.6-1.4) mg/dl Est Cr Clr Drug Dosing 89.3 ml/min Est GFR ( Amer) 88.3 ml/min Est GFR (Non-Af Amer) 76.2 ml/min BUN/Creatinine Ratio 8.5 L (10-20) Glucose 112 H (70-99(Fasting)) mg/dl Calcium 9.7 (8.5-10.1) mg/dl Total Bilirubin 0.7 (0.2-1.0) mg/dl AST 21 (13-39) U/L ALT 30 (7-52) U/L Alkaline Phosphatase 85 (34-104) U/L Total Protein 8.6 H (6.0-8.3) gm/dl Albumin 4.9 (3.4-5.0) gm/dl Globulin 3.7 (2.5-4.0) gm/dl Albumin/Globulin Ratio 1.3 (0.9-2) TSH 3.800 (0.300-4.500) uIu/ml Urine Color Urine Appearance (Clear) Urine pH (4.5-7.5) Ur Specific [place] (1.000-1.030) Urine Protein (Negative) Urine Glucose (UA) (Negative) Urine Ketones (Negative) Urine Blood (Negative) Urine Nitrite (Negative) Urine Bilirubin (Negative) Urine Urobilinogen (Negative) Ur Leukocyte Esterase (Negative) Urine RBC (0-4) /hpf Urine WBC (0-5) /hpf Ur Epithelial Cells (0-5) /lpf Amorphous Sediment (None Prsent) Urine Bacteria (Negative) Hyaline Casts (0-5) /lpf Urine Mucus (None Prsent) Salicylates (3.0-30) mg/dl Urine Opiates Screen (Neg) Ur Methadone, Qual (Neg) Acetaminophen (10-30) ug/ml Urine Barbiturates (Neg) Ur Phencyclidine (PCP) (Neg) U Amphetamin/Meth Scrn (Neg) MDMA (Ecstasy) Screen (Neg) U Benzodiazepines Scrn (Neg) Ur Cocaine Metabolite (Neg) U Marijuana (THC) Screen (Neg) Ethyl Alcohol mg/dL (<10.0) mg/dl SARS-CoV-2, RNA, NAAT (NEGATIVE) 07/29/22 07/29/22 Range/Units 16:06 16:06 WBC (4.8-10.8) K/ul RBC (4.63-6.08) M/uL Hgb (14.0-18.0) g/dl Hct (40.1-51.0) % MCV (80.0-100.0) fL MCH (25.0-34.0) pg MCHC (32.0-36.0) g/dL RDW Std Deviation (36.4-46.3) fL RDW Coeff of Sunshine (11.5-14.5) % Plt Count (130-400) K/uL MPV (9.4-12.4) fL Immature Gran % (Auto) % Neut % (Auto) % Lymph % (Auto) % [place] % (Auto) % Eos % (Auto) % Baso % (Auto) % Neut # (Auto) (1.4-6.5) K/uL Lymph # (Auto) (1.2-3.4) K/uL [place] # (Auto) (0.24-0.82) K/uL Eos # (Auto) (0-0.50) K/uL Baso # (Auto) (0-0.2) K/uL Immature Gran # (Auto) (0.00-0.02) K/uL Sodium (136-145) mmol/L Potassium (3.5-5.1) mmol/L Chloride (98-107) mmol/L Carbon Dioxide (21-32) mmol/L Anion Gap (3-11) BUN (6-23) mg/dl Creatinine (0.6-1.4) mg/dl Est Cr Clr Drug Dosing ml/min Est GFR ( Amer) ml/min Est GFR (Non-Af Amer) ml/min BUN/Creatinine Ratio (10-20) Glucose (70-99(Fasting)) mg/dl Calcium (8.5-10.1) mg/dl Total Bilirubin (0.2-1.0) mg/dl AST (13-39) U/L ALT (7-52) U/L Alkaline Phosphatase (34-104) U/L Total Protein (6.0-8.3) gm/dl Albumin (3.4-5.0) gm/dl Globulin (2.5-4.0) gm/dl Albumin/Globulin Ratio (0.9-2) TSH (0.300-4.500) uIu/ml Urine Color Urine Appearance (Clear) Urine pH (4.5-7.5) Ur Specific [place] (1.000-1.030) Urine Protein (Negative) Urine Glucose (UA) (Negative) Urine Ketones (Negative) Urine Blood (Negative) Urine Nitrite (Negative) Urine Bilirubin (Negative) Urine Urobilinogen (Negative) Ur Leukocyte Esterase (Negative) Urine RBC (0-4) /hpf Urine WBC (0-5) /hpf Ur Epithelial Cells (0-5) /lpf Amorphous Sediment (None Prsent) Urine Bacteria (Negative) Hyaline Casts (0-5) /lpf Urine Mucus (None Prsent) Salicylates < 3.0 L (3.0-30) mg/dl Urine Opiates Screen (Neg) Ur Methadone, Qual (Neg) Acetaminophen < 3 L (10-30) ug/ml Urine Barbiturates (Neg) Ur Phencyclidine (PCP) (Neg) U Amphetamin/Meth Scrn (Neg) MDMA (Ecstasy) Screen (Neg) U Benzodiazepines Scrn (Neg) Ur Cocaine Metabolite (Neg) U Marijuana (THC) Screen (Neg) Ethyl Alcohol mg/dL < 10.0 (<10.0) mg/dl SARS-CoV-2, RNA, NAAT (NEGATIVE) Administered Medications Lisinopril (Lisinopril 10 Mg Tab) 10 mg PO QAM [facility] Stop: 08/30/22 08:59 Last Admin: 07/31/22 06:41 Dose: 10 mg Documented By: BARRETT Lorazepam (Lorazepam 0.5 Mg Tab) 0.5 mg PO Q6 PRN PRN Reason: Anxiety/Agitation Stop: 08/28/22 22:17 Last Admin: 07/31/22 09:14 Dose: 0.5 mg Documented By: [id number] Admin: 07/30/22 11:37 Dose: 0.5 mg Documented By: Admin: 07/29/22 22:28 Dose: 0.5 mg Documented By: GEGE [facility]ivitamins (Multivitamin Tab) [facility] [place]: 08/29/22 11:29 Last Admin: 07/31/22 08:55 Dose: 1 tab Documented By: [id number] Admin: 07/30/22 11:41 Dose: 1 tab Documented By: JAYDEN Paliperidone (Paliperidone 3 Mg Tabcr) 3 mg PO DAILY [facility] Stop: 08/29/22 11:59 Last Admin: 07/31/22 08:54 Dose: 3 mg Documented By: [id number] Admin: 07/30/22 12:04 Dose: 3 mg Documented By: JAYDEN Discontinued Medications Haloperidol (Haloperidol 5 Mg Tab) 5 mg PO NOW STA Stop: 07/29/22 14:15 Last Admin: 07/29/22 14:31 Dose: 5 mg Documented By: RSJessenia Haloperidol (Haloperidol 5 Mg Tab) 5 mg PO Q6 PRN PRN Reason: Agitation Stop: 08/28/22 22:16 Last Admin: 07/29/22 22:28 Dose: 5 mg Documented By: CL Labetalol HCl (Labetalol Hcl 100 Mg Tab) 100 mg PO NOW ONE Stop: 07/29/22 14:55 Last Admin: 07/29/22 15:23 Dose: 100 mg Documented By: Jyoti Lisinopril (Lisinopril 10 Mg Tab) 10 mg PO NOW STA Stop: 07/29/22 22:17 Last Admin: 07/29/22 22:28 Dose: 10 mg Documented By: VERITO Lorazepam (Lorazepam 1 Mg Tab) 2 mg SL NOW STA Stop: 07/29/22 13:37 Last Admin: 07/29/22 13:39 Dose: 2 mg Documented By: [facility] Imaging Data Radiologist's Impression: Head CT 07/29/22 19:38 CT SCAN OF THE BRAIN WITHOUT IV CONTRAST CLINICAL HISTORY: Hypertension. Headache. COMPARISON STUDY: CT of the brain dated 05/25/2019. TECHNIQUE: Unenhanced axial CT scan of the brain is performed from the vertex to the skull base. A dose lowering technique was utilized adhering to the principles of ALARA. CT DOSE: 691.05 mGy.cm FINDINGS: Brain parenchyma: The brain parenchyma is normal in appearance. There is no hemo rrhage, mass effect, or evidence of acute territorial ischemia by CT criteria. Nieto-white matter differentiation is preserved. No extra-axial fluid collection is seen. Ventricles, sulci, cisterns: Normal in configuration. Intracranial vasculature: The visualized intracranial vasculature at the skull base is normal in appearance. Calvarium: Unremarkable. Sinuses and mastoids: There is mild mucosal thickening within the right maxillary sinus. The remaining visualized paranasal sinuses are clear. The mastoid air cells are well pneumatized. Orbits: The bony orbits are grossly intact. IMPRESSION: No acute intracranial abnormality. ACT 112: Negative or not required by law. Electronically signed by: Xavi Michelle M.D. 07/29/2022 8:39 PM Blood Pressure Blood Pressure Findings: Elevated blood pressure Blood Pressure Disposition: elevated BP felt to be situational Discharge Plan Visit Data Chief Complaint: Mental Health Evaluation Stated Complaint: MENTAL HEALTH EVAL ED Provider: Lee Ann Giron Discharge Problem: Mood disorder, Suicidal ideation Patient Disposition: Admitted As Inpatient Discharge Instructions Interventions: ED Discharge Assessment Last Done: 07/29/22 22:05
[2022-07-29 16:18] LABS: Basophils # (auto) 0.08 K/uL (0-0.2); Basophils % (auto) 0.6 %; Eosinophils # (auto) 0.03 K/uL (0-0.50); Eosinophils % (auto) 0.2 %; Hemoglobin 17.2 g/dl (14.0-18.0); Immature Granulocytes # (auto) 0.04 K/uL (0.00-0.02); Immature Granulocytes % (auto) 0.3 %; Lymphocytes # (auto) 3.59 K/uL (1.2-3.4); Lymphocytes % (auto) 26.3 %; Mean Corpuscular Hemoglobin 30.5 pg (25.0-34.0); Mean Corpuscular Hgb Conc 34.4 g/dL (32.0-36.0); Mean Corpuscular Volume 88.7 fL (80.0-100.0); Mean Platelet Volume 9.3 fL (9.4-12.4); Monocytes # (auto) 0.72 K/uL (0.24-0.82); Monocytes % (auto) 5.3 %; Neutrophils # (auto) 9.18 K/uL (1.4-6.5); Neutrophils % (auto) 67.3 %; Platelet Count 350 K/uL (130-400); RDW Standard Deviation 42.5 fL (36.4-46.3); Red Blood Count 5.64 M/uL (4.63-6.08); White Blood Count 13.64 K/ul (4.8-10.8)
[2022-07-29 16:25] LABS: Appearance Urine Cloudy (Clear); Bilirubin Urine 1+ (Negative); Blood Urine Negative (Negative); Color Urine Amber; Glucose Urine UA Negative (Negative); Ketones Urine Trace (Negative); Leukocyte Esterase Urine Negative (Negative); Nitrite Urine Negative (Negative); Protein Urine 2+ (Negative); Specific Gravity Urine >= 1.030 (1.000-1.030); Urobilinogen Urine Negative (Negative); pH Urine 5.5 (4.5-7.5)
[2022-07-29 16:47] LABS: Amorphous Sediment Urine Present (None Prsent); Bacteria Urine Negative (Negative); Epithelial Cell Urine 0-5 /lpf (0-5); Mucus Urine Present (None Prsent); WBC Urine 0-5 /hpf (0-5)
[2022-07-29 16:48] LABS: Hyaline Casts Urine 0-5 /lpf (0-5)
[2022-07-29 16:52] LABS: Amphetamines+Metham, Urine Neg (Neg); Barbiturates, Urine Neg (Neg); Benzodiazepine, Urine Neg (Neg); Cocaine, Urine Neg (Neg); MDMA (Ecstacy), Urine Neg (Neg); Methadone, Urine Neg (Neg); Opiate, Urine Neg (Neg); Phencyclidine, Urine Neg (Neg)
[2022-07-29 16:55] LABS: Acetaminophen < 3 ug/ml (10-30); Albumin Globulin Ratio 1.3 (0.9-2); Albumin Level 4.9 gm/dl (3.4-5.0); BUN Creatinine Ratio 8.5 (10-20); Bilirubin,Total 0.7 mg/dl (0.2-1.0); Calcium 9.7 mg/dl (8.5-10.1); Creatinine Clr Calc Pharmacy 89.3 ml/min; Est GFR (African American) 88.3 ml/min; Est GFR (Non-African American) 76.2 ml/min; Globulin 3.7 gm/dl (2.5-4.0); Potassium 4.1 mmol/L (3.5-5.1); Salicylate < 3.0 mg/dl (3.0-30); Total Protein 8.6 gm/dl (6.0-8.3)
--- NOTE | 2022-07-29 20:40 | CT Scan Report ---
CT SCAN OF THE BRAIN WITHOUT IV CONTRAST CLINICAL HISTORY: Hypertension. Headache. COMPARISON STUDY: CT of the brain dated 05/25/2019. TECHNIQUE: Unenhanced axial CT scan of the brain is performed from the vertex to the skull base. A d ose lowering technique was utilized adhering to the principles of ALARA. CT DOSE: 691.05 mGy.cm FINDINGS: Brain parenchyma: The brain parenchyma is normal in appearance. There is no hemorrhage, mass effect, or evidence of acute territorial ischemia by CT criteria. [place]o-white matter differentiation is preser patrick. No extra-axial fluid collection is seen. Ventricles, sulci, cisterns: Normal in configuration. Intracranial vasculature: The visualized intracranial vasculature at the skull base is normal in appe arance. Calvarium: Unremarkable. Sinuses and mastoids: There is mild mucosal thickening within the right maxillary sinus. The remainin g visualized paranasal sinuses are clear. The mastoid air cells are well pneumatized. Orbits: The bony orbits are grossly intact. IMPRESSION: No acute intracranial abnormality. ACT 112: Negative or not required by law. Electronically signed by: Xavi Michelle M.D. 07/29/2022 8:39 PM
[2022-07-29] MEDS ORDERED: SODIUM CHLORIDE 0.65% NA SOLN 45 ML (OCEAN) PRN (22:14)
[2022-07-29] MEDS ORDERED: MAGNESIUM HYDROXIDE SUSP 30 ML UDC PO PRN (22:14)
[2022-07-29] MEDS ORDERED: ALUMINUM/MAGNESIUM SUSP 30 ML UDC PO PRN (22:14)
[2022-07-29] MEDS ORDERED: ACETAMINOPHEN 325 MG TAB PO PRN (22:14)
[2022-07-29] MEDS ORDERED: hydrOXYzine HCl 25 MG TAB PO PRN ×2 (22:14)
[2022-07-29] MEDS ORDERED: BISMUTH SUBSALICYLATE LIQD 236 ML PO PRN (22:14)
[2022-07-29] MEDS ORDERED: lisinopril 10 MG TAB PO STA (22:16)
[2022-07-29] MEDS ORDERED: haloperidoL 5 MG TAB PO PRN (22:17)
[2022-07-29] MEDS: LORazepam 0.5 MG TAB PO PRN (22:28)
--- NOTE | 2022-07-30 09:08 | History & Physical ---
Date of Service July 30, 2022 Impression / Recommendations Jazmin Rodriguez is a 42 year old with a history of schizoaffective disorder, opioid disorder in sustained remission, depression, anxiety and PTSD who was admitted for worsening depression with SI, inability to attend to ADLs and increased paranoia in the context of recent taper off of long-term methadone and feeling isolated from his extended family. Significant psychic distress. Diagnostically consistent with unspecified depression and psychosis, given history seems most consistent with schizophrenia vs schizoaffective disorder with current severe depressive episode versus major depression with psychotic features versus delusional disorder. The patient is deemed unstable and requires psychiatric hospitalization for diagnostic clarification, safety and stabilization, medication management and development of further coping skills. Discussed medication treatment options in detail including SSRI vs SNRI vs antipsychotic. Discussed risks, benefits and alternatives. Patient would like to start and consented to Invega for depression and psychosis. Reviewed side effects including but not limited to: movement (TD, NMS), cardiac (QTc prolongation), and metabolic (stroke, insulin resistance) and necessity for fasting lipid and glucose labwork and AIMS done with score of 0. MNPR due to poor hygiene, paranoia, recent thoughts of aggression (1) Schizoaffective disorder, depressive type: (2) Paranoia (psychosis): (3) Suicidal thoughts: (4) Major depression: Plan 07/30/22: The patient was admitted to the [facility] ([facility] mental health unit) on q15 min checks (behavioral with suicide precautions) for safety. The patient will participate in group, recreational, and milieu therapies and will be offered additional individual and family sessions as clinically appropriate. -Start Invega 3mg qd with additional 3mg daily prn for agitation -Fasting lipid panel and glucose tomorrow AM -Ativan 0.5mg q6h po prn for agitation/anxiety Inventory Assets Strengths: supportive partner, recent stability in outpatient setting with a job, avoided opioid use Needs: outpatient providers, medication initiation, additional coping skills, safety and stabilization Suicide Risk Level Suicide Risk Level: High-Moderate (q15 min suicide checks) (severe depression with psychosis and SI but feels safe in the hospital and agrees to alert staff/nursing if he feels unsafe, needs extra support or develops SI with plan or intent) Risk Factors Assessment Male: Yes : Yes Do You Have Access To A Gun?: No Mental Health Diagnoses: Yes Substance Use Disorders: Yes (in sustained remission ) Previous Attempt: Yes Family History of Suicide: No Previous Psychiatric Hospitalization: Yes Protective Factors Assessment : No Employed: No Stable Relationships: Yes Supportive Family: No Good Rapport with Provider: No Psychiatric History Identifying Data ALICIA DAVIS is a 42-year-old M who currently lives in [place] with his girlfriend, has a history of depression, opioid use disorder in sustained remission and schizoaffective disorder, and was admitted on 07/29/22 21:18 on a 201 voluntary commitment for worsening depression and inability to care for ADLs. Chief Complaint "I don't want to be around". History of Present Illness Alicia presents for psychiatric admission for worsening depression and inability to attend to his ADLs including poor sleep, appetite, hygiene and increased social isolation. He has not taken any psychiatric medications for the last 8 months, states he stopped them because "I had to keep getting shot and getting blood taken and they missed and missed and I was feeling ok so I stopped it". Has not seen any outpatient psychiatric providers since 8 months ago as he states he didn't like going to [facility] noting he didn't feel very comfortable with his provider as he felt "scrutinized". He was last hospitalized on [facility] in April 2021 and at that time was discharged on clonidine, Vistaril, Buspar, prazosin, Abilify KELLY, clozapine, and he was continuing with his methadone. He notes he stopped methadone as he felt like "I was ready" and he started to taper off but thought the staff thought he was doing it to quickly and felt like they started to question him and "mess with me". He's been off methadone for 6 weeks and notes "I'm feeling like sh*t". He states "I'm not functioning at home, I'm not even taking care of myself" and "something is going on in my head". He couldn't function so had to leave his job at the end of May. He has thoughts of suicide but no plans. He notes that waking up each morning "is such a disappointment". He's often alone during the day as his girlfriend works shift engineer and then sleeps during the day. He endorses paranoia "about other people" and that "I've seen some things" noting that his neighbor and a man in a truck were watching him and messing with him. Notes that he feels like there is "electricity inside of me, it almost hurts". Denies auditory hallucinations. States last week due to the depression he did think about "going on some type of crime spree and then throwing my life away that way until the electronic scanner operator came and put me away" but notes that he never developed a specific plan nor intent and becomes tearful noting "I'm not a violent person so I don't think I could ever do that". Denies any current violent thoughts. He's tried reaching out to a family member and then ignored his message. Tearful in expressing not seeing his extended family in many years and being cut off due to past substance use and that they continue to chose not to have contact with him. States he feels continuing to live is pointless as he doesn't have "family, money, a career" noting "I made nothing for myself". Past Psychiatric History Current Psychiatric Diagnosis: MDD, SHUKRI, PTSD, schizoaffective disorder Outpatient Services: none Previous Psych Admissions: ~8-10 times total last at [facility] April 2021 prior to that [facility] 2016, 2017, 2018, 2019 Do You Have Access To A Gun?: No History of Previous Suicide Attempt: Yes Describe Attempts in the Past: age 19 via overdose of medication Past Medication Trials: has limited recollection states "probably everything" but doesn't recall hx of Invega; per chart review from admission in 2020: Effexor XR, buproprion (was discontinued by the [facility] during Spring 2021 hospitalization, traditionally helpful and decreased cravings), Paxil, Celexa, Abilify (now on maintenna), trazodone, topiramate, amytrip, lexapro, hydroxyzine, gabapentin. Past Head Trauma/Neuro History History of Concussion/Seizure: No Allergies Allergy/AdvReac Type Severity Reaction Status Date / Time No Known Allergies Allergy Verified 10/13/20 15:22 Home Medications Medication Instructions Recorded Confirmed Type No Known Home Medications 07/29/22 07/29/22 History Family History Family History of: Doesn't Know Alcohol History Hx of Alcohol Use Over the Past 12 Months: No AUDIT Total Score: 0 Smoking Use Have You Smoked or Used Tobacco Products in the Last 30 Days: Yes tobacco type: cigarettes Smoking Status: Light tobacco smoker (few times per week) Smoking packs per day: 0 Substance History Hx of Prescription Med Misuse Over the Past 12 Months: No Hx of Over the Counter Med Misuse Over the Past 12 Months: No Hx of Inhalent Misuse Over the Past 12 Months: No Hx of Organic Substance Use Over the Past 12 Months: Yes (UDS pos for marijuana) Hx of Illegal Substances/Street Drug Use Over Past 12 Months: No Problems as a Result of Past Substance Use: None Identified Uses medical marijuana daily, likes that it helps him feel calm and concentrate and eat Personal History Living Arrangements: Apartment Born In: [place] Childhood: His mother 10 years ago. Has supportive relationship with his dad. Highest Grade Completed: G.E.D. Employment Status: Unemployed Marital Status: Living w/ Signif. Other Number Of Children: 2-live with their mother Beliefs That Will Affect Care: None Current Legal Problems: No Hx Legal Problems: Yes (hx of incarceration (drug related)) Hx Traumatic Life Events: Yes Patient History Medical History (Reviewed 07/30/22 @ 11: by Juana Rivas MD) Amphetamine abuse Antisocial personality disorder Cannabis abuse Chronic back pain Elevated transaminase level Flank pain Heroin overdose Major depressive disorder, recurrent severe without psychotic features MRSA carrier Nephrolithiasis Obesity Opiate abuse, episodic Polysubstance abuse Psychosis PTSD (post-traumatic stress disorder) Right ureteral calculus Suicidal ideation Tobacco use disorder Ureteral calculi Surgical History History of cholecystectomy Family History (Reviewed 07/30/22 @ 11: by Juana Rivas MD) Other No significant family history Social History Smoking Status: Current some day smoker Tobacco Type: Cigarettes Preferred Language: [place] Leonean Communication Ability: Effective Nailing Machine Feeder Required: No Beliefs That Will Affect Care: None marital status: Single Current Living Situation: Significant Other current occupational status: employed Feels Safe at Home: Yes Assistive Devices: None Review of Systems Review of Systems: All systems reviewed & are unremarkable except as noted in HPI & below (increased MORALES in the last week ) Physical Exam Psychiatric: Orientation: alert and oriented x 3 Apperance: appropriately dressed and + disheveled Eye Contact: + poor eye contact Motor Behavior: no abnormal motor movements Speech: + abnormal rate/rhythm/volume of speech (brief) Affect: + depressed affect, + tearful affect and + blunted affect Mood: + depressed mood Thought Process: + thought blocking and + concrete thought process Thought Content: + preoccupation and + paranoid Suicidal Thoughts: denies suicidal plan and denies suicidal intent; + reports suicidal thoughts Homicidal Thoughts: denies homicidal thoughts Hallucinations: no auditory hallucinations and no visual hallucinations Cognition: recent memory grossly intact, remote memory grossly intact, attention grossly intact and language grossly intact Estimated Intelligence: consistent with education level Insight: + limited insight Judgement: + limited judgement Vital Signs (Past 24 Hours): Last Vital Signs Temp 36.4 C 07/30/22 06:00 Pulse 87 07/30/22 06:49 Resp 16 07/30/22 06:00 BP 153/93 H 07/30/22 06:49 Pulse Ox 97 07/30/22 06:00 O2 Del Method 07/30/22 06:00 Exam Statement: A physical exam was performed in the ED by Dr. Giron for the purposes of medical clearance. I accept that physical as correct and adequate for the purposes of the inpatient physical exam. Results & Data ([facility]) Laboratory Results Laboratory Results - last 24 hr 07/29/22 07/29/22 07/29/22 12:35 12:35 12:35 WBC RBC Hgb Hct MCV MCH MCHC RDW Std Deviation RDW Coeff of Sunshine Plt Count MPV Immature Gran % (Auto) Neut % (Auto) Lymph % (Auto) [place] % (Auto) Eos % (Auto) Baso % (Auto) Neut # (Auto) Lymph # (Auto) [place] # (Auto) Eos # (Auto) Baso # (Auto) Immature Gran # (Auto) Sodium Potassium Chloride Carbon Dioxide Anion Gap BUN Creatinine Est Cr Clr Drug Dosing Est GFR ( Amer) Est GFR (Non-Af Amer) BUN/Creatinine Ratio Glucose Calcium Total Bilirubin AST ALT Alkaline Phosphatase Total Protein Albumin Globulin Albumin/Globulin Ratio TSH Urine Color Maggie Urine Appearance Cloudy A Urine pH 5.5 Ur Specific [place] >= 1.030 Urine Protein 2+ H Urine Glucose (UA) Negative Urine Ketones Trace H Urine Blood Negative Urine Nitrite Negative Urine Bilirubin 1+ H Urine Urobilinogen Negative Ur Leukocyte Esterase Negative Urine RBC 5-10 H Urine WBC 0-5 Ur Epithelial Cells 0-5 Amorphous Sediment Present A Urine Bacteria Negative Hyaline Casts 0-5 Urine Mucus Present A Salicylates Urine Opiates Screen Neg Ur Methadone, Qual Neg Acetaminophen Urine Barbiturates Neg Ur Phencyclidine (PCP) Neg U Amphetamin/Meth Scrn Neg MDMA (Ecstasy) Screen Neg U Benzodiazepines Scrn Neg Ur Cocaine Metabolite Neg U Marijuana (THC) Screen Pos H U Marijuana THC Carboxy Drug Screen Comment Ethyl Alcohol mg/dL SARS-CoV-2, RNA, NAAT NEGATIVE 07/29/22 07/29/22 07/29/22 12:35 16:06 16:06 WBC 13.64 H RBC 5.64 Hgb 17.2 Hct 50.0 MCV 88.7 MCH 30.5 MCHC 34.4 RDW Std Deviation 42.5 RDW Coeff of Sunshine 13.0 Plt Count 350 MPV 9.3 L Immature Gran % (Auto) 0.3 Neut % (Auto) 67.3 Lymph % (Auto) 26.3 [place] % (Auto) 5.3 Eos % (Auto) 0.2 Baso % (Auto) 0.6 Neut # (Auto) 9.18 H Lymph # (Auto) 3.59 H [place] # (Auto) 0.72 Eos # (Auto) 0.03 Baso # (Auto) 0.08 Immature Gran # (Auto) 0.04 H Sodium 141 Potassium 4.1 Chloride 106 Carbon Dioxide 27 Anion Gap 8 BUN 10 Creatinine 1.18 Est Cr Clr Drug Dosing 89.3 Est GFR ( Amer) 88.3 Est GFR (Non-Af Amer) 76.2 BUN/Creatinine Ratio 8.5 L Glucose 112 H Calcium 9.7 Total Bilirubin 0.7 AST 21 ALT 30 Alkaline Phosphatase 85 Total Protein 8.6 H Albumin 4.9 Globulin 3.7 Albumin/Globulin Ratio 1.3 TSH Urine Color Urine Appearance Urine pH Ur Specific [place] Urine Protein Urine Glucose (UA) Urine Ketones Urine Blood Urine Nitrite Urine Bilirubin Urine Urobilinogen Ur Leukocyte Esterase Urine RBC Urine WBC Ur Epithelial Cells Amorphous Sediment Urine Bacteria Hyaline Casts Urine Mucus Salicylates Urine Opiates Screen Ur Methadone, Qual Acetaminophen Urine Barbiturates Ur Phencyclidine (PCP) U Amphetamin/Meth Scrn MDMA (Ecstasy) Screen U Benzodiazepines Scrn Ur Cocaine Metabolite U Marijuana (THC) Screen U Marijuana THC Carboxy Pending Drug Screen Comment Pending Ethyl Alcohol mg/dL SARS-CoV-2, RNA, NAAT 07/29/22 07/29/22 07/29/22 16:06 16:06 16:06 WBC RBC Hgb Hct MCV MCH MCHC RDW Std Deviation RDW Coeff of [place] Plt Count MPV Immature Gran % (Auto) Neut % (Auto) Lymph % (Auto) [place] % (Auto) Eos % (Auto) Baso % (Auto) Neut # (Auto) Lymph # (Auto) [place] # (Auto) Eos # (Auto) Baso # (Auto) Immature Gran # (Auto) Sodium Potassium Chloride Carbon Dioxide Anion Gap BUN Creatinine Est Cr Clr Drug Dosing Est GFR ( Amer) Est GFR (Non-Af Amer) BUN/Creatinine Ratio Glucose Calcium Total Bilirubin AST ALT Alkaline Phosphatase Total Protein Albumin Globulin Albumin/Globulin Ratio TSH 3.800 Urine Color Urine Appearance Urine pH Ur Specific [place] Urine Protein Urine Glucose (UA) Urine Ketones Urine Blood Urine Nitrite Urine Bilirubin Urine Urobilinogen Ur Leukocyte Esterase Urine RBC Urine WBC Ur Epithelial Cells Amorphous Sediment Urine Bacteria Hyaline Casts Urine Mucus Salicylates < 3.0 L Urine Opiates Screen Ur Methadone, Qual Acetaminophen < 3 L Urine Barbiturates Ur Phencyclidine (PCP) U Amphetamin/Meth Scrn MDMA (Ecstasy) Screen U Benzodiazepines Scrn Ur Cocaine Metabolite U Marijuana (THC) Screen U Marijuana THC Carboxy Drug Screen Comment Ethyl Alcohol mg/dL < 10.0 SARS-CoV-2, RNA, NAAT Current Inpatient Medications Current Inpatient Medications: Current Inpatient Medications Acetaminophen (Acetaminophen 325 Mg Tab) 650 mg PO Q4H PRN PRN Reason: Headache or Minor Fever Stop: 08/28/22 22:13 Al Hydrox/Mg Hydrox/Simethicone (Aluminum/Magnesium Susp 30 Ml Udc) 30 ml PO Q4H PRN PRN Reason: GI Upset Stop: 08/28/22 22:13 Bismuth Subsalicylate (Bismuth Subsalicylate Liqd 236 Ml) 15 ml PO PRN PRN PRN Reason: Loose Stool Stop: 08/28/22 22:13 Haloperidol (Haloperidol 5 Mg Tab) 5 mg PO Q6 PRN PRN Reason: Agitation Stop: 08/28/22 22:16 Last Admin: 07/29/22 22:28 Dose: 5 mg Hydroxyzine HCl (Hydroxyzine Hcl 25 Mg Tab) 50 mg PO HSZ PRN PRN Reason: Insomnia Stop: 08/28/22 22:13 Hydroxyzine HCl (Hydroxyzine Hcl 25 Mg Tab) 25 mg PO Q4H PRN PRN Reason: Anxiety Stop: 08/28/22 22:13 Lorazepam (Lorazepam 0.5 Mg Tab) 0.5 mg PO Q6 PRN PRN Reason: Anxiety/Agitation Stop: 08/28/22 22:17 Last Admin: 07/29/22 22:28 Dose: 0.5 mg Magnesium Hydroxide (Magnesium Hydroxide Susp 30 Ml Udc) 30 ml PO DAILY PRN PRN Reason: Constipation Stop: 08/28/22 22:13 Sodium Chloride (Sodium Chloride 0.65% Na Soln 45 Ml ([place])) 1 - 2 sprays NA PRN PRN PRN Reason: Nasal Dryness/Congestion Stop: 08/28/22 22:13
[2022-07-30] MEDS: LORazepam 0.5 MG TAB PO PRN (11:37)
[2022-07-30] MEDS: MULTIVITAMIN TAB PO SCH (11:41)
[2022-07-30] MEDS ORDERED: PALIPERIDONE 3 MG TABCR PO PRN (11:45)
[2022-07-30] MEDS: PALIPERIDONE 3 MG TABCR PO SCH (12:04)
[2022-07-31] MEDS: lisinopril 10 MG TAB PO SCH (06:41)
[2022-07-31 08:38] LABS: Chol HDL Ratio 6.2 (0-5)
[2022-07-31] MEDS: PALIPERIDONE 3 MG TABCR PO SCH (08:54)
[2022-07-31] MEDS: MULTIVITAMIN TAB PO SCH (08:55)
--- NOTE | 2022-07-31 09:11 | Psychiatric Progress Note ---
Date of Service July 31, 2022 Impression / Recommendations Jazmin Rodriguez is a 42 year old with a history of schizoaffective disorder, opioid disorder in sustained remission, depression, anxiety and PTSD who was admitted for worsening depression with SI, inability to attend to ADLs and increased paranoia in the context of recent taper off of long-term methadone and feeling isolated from his extended family. Significant psychic distress. Diagnostically consistent with unspecified depression and psychosis, given history seems most consistent with schizophrenia vs schizoaffective disorder with current severe depressive episode versus major depression with psychotic features versus delusional disorder. The patient is deemed unstable and requires psychiatric hospitalization for diagnostic clarification, safety and stabilization, medication management and development of further coping skills. MNPR due to poor hygiene, paranoia, recent thoughts of aggression 07/31/22: Remains very depressed, with physical discomfort and isolative to his room. Continues to have elevated BP, new addition of lisinopril which he took in the past and consents to. Reviewed fasting lipid panel abnormal for elevated TGs, low HDL. Fasting glucose normal. Reviewed medication options and he consents to using trazodone for sleep and starting clonidine to help with elevated BP and possibility of protracted opoiod agonist withdrawal symptoms. Reviewed side effects including but not limited to sedation with trazodone, low BP/rebound HTN with clonidine. (1) Schizoaffective disorder, depressive type: (2) Paranoia (psychosis): (3) Suicidal thoughts: (4) Major depression: (5) HTN (hypertension): (6) High triglycerides: -follow-up with PCP to discuss monitoring frequency and if needed treatment -Reviewed exercise and healthy diet can be helpful Plan 07/31/22: Start trazodone 50mg qhs, clonidine patch 0.1mg/24 hours 07/30/22: The patient was admitted to the [facility] ([facility] inpatient mental health unit) on q15 min checks (behavioral with suicide precautions) for safety. The patient will participate in group, recreational, and milieu therapies and will be offered additional individual and family sessions as clinically appropriate. -Start Invega 3mg qd with additional 3mg daily prn for agitation -Fasting lipid panel and glucose tomorrow AM -Ativan 0.5mg q6h po prn for agitation/anxiety Inventory Assets Strengths: supportive partner, recent stability in outpatient setting with a job, avoided opioid use Needs: outpatient providers, medication initiation, additional coping skills, safety and stabilization Suicide Risk Level Suicide Risk Level: High-Moderate (q15 min suicide checks) (severe depression with psychosis and SI but feels safe in the hospital and agrees to alert staff/nursing if he feels unsafe, needs extra support or develops SI with plan or intent) Risk Factors Assessment Male: Yes : Yes Do You Have Access To A Gun?: No Mental Health Diagnoses: Yes Substance Use Disorders: Yes (in sustained remission ) Previous Attempt: Yes Family History of Suicide: No Previous Psychiatric Hospitalization: Yes Protective Factors Assessment : No Employed: No Stable Relationships: Yes Supportive Family: No Good Rapport with Provider: No Interval History Identifying Information ALICIA DAVIS is a 42-year-old M who currently lives in [place] with his girlfriend, has a history of depression, opioid use disorder in sustained remission and schizoaffective disorder, and was admitted on 07/29/22 21:18 on a 201 voluntary commitment for worsening depression and inability to care for ADLs. Chief Complaint "This morning I just felt this rage and irritability and like I was going to crawl out of my skin". Review of Systems Sleep Information Total Hours of Sleep: 8 Meal Information Percent Meal Consumed - Breakfast: 75 Percent Meal Consumed - Lunch: 50 Percent Meal Consumed - Dinner: 100 Subjective Subjective Patient was seen & assessed and interval progress reviewed with treatment team nursing and social work. Was in his room and isolative all day with exception of meals and to call his girlfriend briefly on the phone. This morning requested something to help with anger and irritability and sense of intense distress. Denies any side effects from Invega. Struggled to sleep. Continues to have elevated BP but denies any symptoms from this like MORALES nor vision changes nor SOB nor nose bleeding. Physical Exam Psychiatric Orientation: alert and oriented x 3 Apperance: appropriately dressed and + disheveled Eye Contact: + poor eye contact Motor Behavior: no abnormal motor movements Speech: + abnormal rate/rhythm/volume of speech (brief) Affect: + depressed affect and + blunted affect Mood: + depressed mood and + irritable mood Thought Process: + thought blocking and + concrete thought process Thought Content: + preoccupation and + paranoid Suicidal Thoughts: denies suicidal plan and denies suicidal intent; + reports suicidal thoughts Homicidal Thoughts: denies homicidal thoughts Hallucinations: no auditory hallucinations and no visual hallucinations Cognition: recent memory grossly intact, remote memory grossly intact, attention grossly intact and language grossly intact Estimated Intelligence: consistent with education level Insight: + limited insight Judgement: + limited judgement Vital Signs (Past 24 Hours) Last Vital Signs Temp 36.7 C 07/31/22 06:00 Pulse 102 H 07/31/22 06:52 Resp 20 07/31/22 06:00 BP 175/125 H 07/31/22 06:52 Pulse Ox 95 07/31/22 06:00 O2 Del Method 07/31/22 06:00 Results & Data ([facility]) Laboratory Results Laboratory Results - last 24 hr 07/31/22 07:55 Fasting Glucose 99 Triglycerides 235 H Cholesterol 199 LDL Cholesterol, Calc 120 VLDL Cholesterol, Calc 47 H HDL Cholesterol 32 Cholesterol/HDL Ratio 6.2 H Current Inpatient Medications Current Inpatient Medications: Current Inpatient Medications Acetaminophen (Acetaminophen 325 Mg Tab) 650 mg PO Q4H PRN PRN Reason: Headache or Minor Fever Stop: 08/28/22 22:13 Al Hydrox/Mg Hydrox/Simethicone (Aluminum/Magnesium Susp 30 Ml Udc) 30 ml PO Q4H PRN PRN Reason: GI Upset Stop: 08/28/22 22:13 Bismuth Subsalicylate (Bismuth Subsalicylate Liqd 236 Ml) 15 ml PO PRN PRN PRN Reason: Loose Stool Stop: 08/28/22 22:13 Hydroxyzine HCl (Hydroxyzine Hcl 25 Mg Tab) 50 mg PO HSZ PRN PRN Reason: Insomnia Stop: 08/28/22 22:13 Hydroxyzine HCl (Hydroxyzine Hcl 25 Mg Tab) 25 mg PO Q4H PRN PRN Reason: Anxiety Stop: 08/28/22 22:13 Lisinopril (Lisinopril 10 Mg Tab) 10 mg PO QAM RAMÓN Stop: 08/30/22 08:59 Last Admin: 07/31/22 06:41 Dose: 10 mg Lorazepam (Lorazepam 0.5 Mg Tab) 0.5 mg PO Q6 PRN PRN Reason: Anxiety/Agitation Stop: 08/28/22 22:17 Last Admin: 07/30/22 11:37 Dose: 0.5 mg Magnesium Hydroxide (Magnesium Hydroxide Susp 30 Ml Udc) 30 ml PO DAILY PRN PRN Reason: Constipation Stop: 08/28/22 22:13 Multivitamins (Multivitamin Tab) 1 tab PO QAM RAMÓN Stop: 08/29/22 11:29 Last Admin: 07/31/22 08:55 Dose: 1 tab Paliperidone (Paliperidone 3 Mg Tabcr) 3 mg PO DAILY RAMÓN Stop: 08/29/22 11:59 Last Admin: 07/31/22 08:54 Dose: 3 mg Paliperidone (Paliperidone 3 Mg Tabcr) 3 mg PO DAILY PRN PRN Reason: Agitation/anxiety Stop: 08/30/22 08:59 Sodium Chloride (Sodium Chloride 0.65% Na Soln 45 Ml ([place])) 1 - 2 sprays NA PRN PRN PRN Reason: Nasal Dryness/Congestion Stop: 08/28/22 22:13 Mental Health & Subst Abuse Tx Therapist Name of Therapist: N/A Dressmaking Teacher Name of Dressmaking Teacher: N/A
[2022-07-31] MEDS: LORazepam 0.5 MG TAB PO PRN ×2 (09:14→20:10)
[2022-07-31] MEDS ORDERED: cloNIDine HCL 0.1 MG/24 HR TRANSDERM SYS TD SCH (12:00)
[2022-07-31] MEDS: CHECK CLONIDINE PATCH PLACEMENT SCH (15:58)
[2022-07-31] MEDS: traZODone HCL 50 MG TAB PO SCH (21:16)
--- NOTE | 2022-07-31 22:54 | Electrocardiogram Report ---
Test Reason : Blood Pressure : / mmHG Vent. Rate : 075 BPM Atrial Rate : 075 BPM P-R Int : 134 ms QRS Dur : 090 ms QT Int : 370 ms P-R-T Axes : 015 -05 -16 degrees QTc Int : 413 ms Sinus rhythm with marked sinus arrhythmia Nonspecific T wave abnormality Abnormal ECG When compared with ECG of 05-NOV-2021 11:07, No significant change was found Confirmed by Abelardo Cohen ([id number]) on 07/31/2022 10:54:03 PM Referred By: REFERRED SELF Confirmed By:Abelardo Cohen
[2022-07-31 22:57] LABS: Marijuana Quant, GCMS Urine 2291 ng/mL (<5)
[2022-08-01] MEDS: lisinopril 10 MG TAB PO SCH (08:44)
[2022-08-01] MEDS: MULTIVITAMIN TAB PO SCH (08:44)
[2022-08-01] MEDS: CHECK CLONIDINE PATCH PLACEMENT SCH ×4 (08:44→23:44)
[2022-08-01] MEDS: PALIPERIDONE 3 MG TABCR PO SCH (08:45)
--- NOTE | 2022-08-01 09:01 | Psychiatric Progress Note ---
Date of Service August 01, 2022 Impression / Recommendations Jazmin Rodriguez is a 42 year old with a history of schizoaffective disorder, opioid disorder in sustained remission, depression, anxiety and PTSD who was admitted for worsening depression with SI, inability to attend to ADLs and increased paranoia in the context of recent taper off of long-term methadone and feeling isolated from his extended family. Significant psychic distress. Diagnostically consistent with unspecified depression and psychosis, given history seems most consistent with schizophrenia vs schizoaffective disorder with current severe depressive episode versus major depression with psychotic features versus delusional disorder. The patient is deemed unstable and requires psychiatric hospitalization for diagnostic clarification, safety and stabilization, medication management and development of further coping skills. MNPR due to poor hygiene, paranoia, high irritability/anger 08/01/22: Remains depressed, with increased physical discomfort and irritability. BP improved today. Physical distress not consistent with DVT nor akathisia. Suspect due to opioid withdrawal. Tolerating addition of clonidine patch which should start to take effect today and slept a bit better with trazodone. Will start gabapentin to help with nerve pain issues and off-label for anxiety which he consents to. Reviewed side effects including but not limited to dizziness, potential for abuse, potential for fatal respiratory depression if combined with alcohol/opoiods/benzodiazepines. (1) Schizoaffective disorder, depressive type: (2) Paranoia (psychosis): (3) Suicidal thoughts: (4) Major depression: (5) HTN (hypertension): (6) High triglycerides: -follow-up with PCP to discuss monitoring frequency and if needed treatment -Reviewed exercise and healthy diet can be helpful Plan 08/01/22: Start gabapentin 300mg TID prn for nerve pain 07/31/22: Start trazodone 50mg qhs, clonidine patch 0.1mg/24 hours 07/30/22: The patient was admitted to [facility] ([facility] inpatient mental health unit) on q15 min checks (behavioral with suicide precautions) for safety. The patient will participate in group, recreational, and milieu therapies and will be offered additional individual and family sessions as clinically appropriate. -Start Invega 3mg qd with additional 3mg daily prn for agitation -Fasting lipid panel and glucose tomorrow AM -Ativan 0.5mg q6h po prn for agitation/anxiety Inventory Assets Strengths: supportive partner, recent stability in outpatient setting with a job, avoided opioid use Needs: outpatient providers, medication initiation, additional coping skills, safety and stabilization Suicide Risk Level Suicide Risk Level: High-Moderate (q15 min suicide checks) (severe depression with SI but feels safe in the hospital and agrees to alert staff/nursing if he feels unsafe, needs extra support or develops SI with plan or intent) Risk Factors Assessment Male: Yes : Yes Do You Have Access To A Gun?: No Mental Health Diagnoses: Yes Substance Use Disorders: Yes (in sustained remission ) Previous Attempt: Yes Family History of Suicide: No Previous Psychiatric Hospitalization: Yes Protective Factors Assessment : No Employed: No Stable Relationships: Yes Supportive Family: No Good Rapport with Provider: No Interval History Identifying Information ALICIA DAVIS is a 42-year-old M who currently lives in [place] with his girlfriend, has a history of depression, opioid use disorder in sustained remission and schizoaffective disorder, and was admitted on 07/29/22 21:18 on a 201 voluntary commitment for worsening depression and inability to care for ADLs. Chief Complaint "I didn't sleep well I kept waking up and it feels like electricity in my legs". Review of Systems Sleep Information Total Hours of Sleep: 8.75 Meal Information Percent Meal Consumed - Breakfast: 10 Percent Meal Consumed - Lunch: 95 Percent Meal Consumed - Dinner: 100 Nutrition Comment: Subjective Subjective Patient was seen & assessed and interval progress reviewed with treatment team nursing and social work. Attended one group yesterday evening. Had an anger outburst last night with slamming his door after talking to his girlfriend last night but then was able to de-escalate. Got prn ativan which was helpful. Today reports ongoing distress due to feeling like "I need to scream" due to sense of physical discomfort. Denies symptoms of akathisia rather more sensation of "electricity" and "pins and needles" in his legs. Reports his mother has MS but that he's never experienced anything like this until the last few weeks. Bilateral in both lower legs. Discussed possibility it could be related to side effect from recent taper off of methadone and agrees timing matches with that. Feels his mood is improving a bit but distraught due to physical symptoms and still feeling very irritable. Physical Exam Psychiatric Orientation: alert and oriented x 3 Apperance: appropriately dressed and + disheveled Eye Contact: + fair eye contact Motor Behavior: no abnormal motor movements Speech: + loud speech and normal rate/rhythm/volume of speech Affect: + depressed affect, + anxious affect and + labile affect Mood: + depressed mood, + anxious mood and + irritable mood Thought Process: + perseveration and + concrete thought process Thought Content: + preoccupation and reality based without delusions Suicidal Thoughts: denies suicidal plan and denies suicidal intent; + reports suicidal thoughts Homicidal Thoughts: denies homicidal thoughts Hallucinations: no auditory hallucinations and no visual hallucinations Cognition: recent memory grossly intact, remote memory grossly intact, attention grossly intact and language grossly intact Estimated Intelligence: consistent with education level Insight: + limited insight Judgement: + limited judgement Vital Signs (Past 24 Hours) Last Vital Signs Temp 36.8 C 08/01/22 06:38 Pulse 96 H 08/01/22 06:39 Resp 16 08/01/22 06:38 BP 128/88 08/01/22 06:39 Pulse Ox 95 07/31/22 06:00 O2 Del Method 07/31/22 06:00 Results & Data ([facility]) Laboratory Results Laboratory Results - last 24 hr 07/29/22 12:35 U Marijuana THC Carboxy 2291 H Drug Screen Comment SEE NOTE Current Inpatient Medications Current Inpatient Medications: Current Inpatient Medications Acetaminophen (Acetaminophen 325 Mg Tab) 650 mg PO Q4H PRN PRN Reason: Headache or Minor Fever Stop: 08/28/22 22:13 Al Hydrox/Mg Hydrox/Simethicone (Aluminum/Magnesium Susp 30 Ml Udc) 30 ml PO Q4H PRN PRN Reason: GI Upset Stop: 08/28/22 22:13 Bismuth Subsalicylate (Bismuth Subsalicylate Liqd 236 Ml) 15 ml PO PRN PRN PRN Reason: Loose Stool Stop: 08/28/22 22:13 Clonidine HCl (Clonidine Hcl 0.1 Mg/24 Hr Transderm Sys) 1 patch TD Q7D RAMÓN Stop: 08/30/22 11:59 Last Admin: 07/31/22 13:16 Dose: 1 patch Hydroxyzine HCl (Hydroxyzine Hcl 25 Mg Tab) 50 mg PO HSZ PRN PRN Reason: Insomnia Stop: 08/28/22 22:13 Hydroxyzine HCl (Hydroxyzine Hcl 25 Mg Tab) 25 mg PO Q4H PRN PRN Reason: Anxiety Stop: 08/28/22 22:13 Lisinopril (Lisinopril 10 Mg Tab) 10 mg PO QAM [facility] Stop: 08/30/22 08:59 Last Admin: 08/01/22 08:44 Dose: 10 mg Lorazepam (Lorazepam 0.5 Mg Tab) 0.5 mg PO Q6 PRN PRN Reason: Anxiety/Agitation Stop: 08/28/22 22:17 Last Admin: 07/31/22 20:10 Dose: 0.5 mg Magnesium Hydroxide (Magnesium Hydroxide Susp 30 Ml Udc) 30 ml PO DAILY PRN PRN Reason: Constipation Stop: 08/28/22 22:13 Miscellaneous (Check Clonidine Patch Placement) 1 each N/A QS [facility] Stop: 08/30/22 15:59 Last Admin: 08/01/22 08:44 Dose: 1 each Miscellaneous (Remove Clonidine Patch) 1 each N/A CQWK [facility] Stop: 09/06/22 11:59 Multivitamins (Multivitamin Tab) 1 tab PO QAM [facility] Stop: 08/29/22 11:29 Last Admin: 08/01/22 08:44 Dose: 1 tab Paliperidone (Paliperidone 3 Mg Tabcr) 3 mg PO DAILY PRN PRN Reason: Agitation/anxiety Stop: 08/30/22 08:59 Paliperidone (Paliperidone 3 Mg Tabcr) 6 mg PO DAILY RAMÓN Stop: 08/31/22 08:59 Last Admin: 08/01/22 08:45 Dose: 6 mg Sodium Chloride (Sodium Chloride 0.65% Na Soln 45 Ml ([place])) 1 - 2 sprays NA PRN PRN PRN Reason: Nasal Dryness/Congestion Stop: 08/28/22 22:13 Trazodone HCl (Trazodone Hcl 50 Mg Tab) 50 mg PO HS RAMÓN Stop: 08/30/22 21:59 Last Admin: 07/31/22 21:16 Dose: 50 mg Mental Health & Subst Abuse Tx Therapist Name of Therapist: N/A [employer] Rep[employer] Estimator Name of Auto Body Repair Estimator: N/A
[2022-08-01] MEDS: GABAPENTIN 300 MG CAP PO PRN ×3 (10:54→21:38)
[2022-08-01] MEDS: traZODone HCL 50 MG TAB PO SCH (21:38)
[2022-08-02] MEDS: MULTIVITAMIN TAB PO SCH (08:46)
[2022-08-02] MEDS: PALIPERIDONE 3 MG TABCR PO SCH (08:47)
[2022-08-02] MEDS: lisinopril 10 MG TAB PO SCH (08:47)
[2022-08-02] MEDS: GABAPENTIN 300 MG CAP PO PRN (09:06)
[2022-08-02] MEDS: CHECK CLONIDINE PATCH PLACEMENT SCH ×2 (09:07→17:37)
[2022-08-02] MEDS ORDERED: GABAPENTIN 300 MG CAP PO ONE (10:30)
[2022-08-02] MEDS ORDERED: GABAPENTIN 300 MG CAP PO SCH (14:00)
[2022-08-02] MEDS: GABAPENTIN 600 MG TAB PO SCH ×2 (14:24→21:29)
--- NOTE | 2022-08-02 18:41 | Psychiatric Progress Note ---
Date of Service August 02, 2022 Impression / Recommendations Jazmin Rodriguez is a 42 year old with a history of schizoaffective disorder, opioid disorder in sustained remission, depression, anxiety and PTSD who was admitted for worsening depression with SI, inability to attend to ADLs and increased paranoia in the context of recent taper off of long-term methadone and feeling isolated from his extended family. Significant psychic distress. Diagnostically consistent with unspecified depression and psychosis, given history seems most consistent with schizophrenia vs schizoaffective disorder with current severe depressive episode versus major depression with psychotic features versus delusional disorder. The patient is deemed unstable and requires psychiatric hospitalization for diagnostic clarification, safety and stabilization, medication management and development of further coping skills. MNPR due to poor hygiene, paranoia, high irritability/anger 08/02/22: Remains depressed, ongoing nerve pain. Will continue to titrate gabapentin. (1) Schizoaffective disorder, depressive type: (2) Paranoia (psychosis): (3) Suicidal thoughts: (4) Major depression: (5) HTN (hypertension): (6) High triglycerides: -follow-up with PCP to discuss monitoring frequency and if needed treatment -Reviewed exercise and healthy diet can be helpful Plan 08/02/22: Increase gabapentin 600mg TID 08/01/22: Start gabapentin 300mg TID prn for nerve pain 07/31/22: Start trazodone 50mg qhs, clonidine patch 0.1mg/24 hours 07/30/22: The patient was admitted to the [facility] ([facility] mental health unit) on q15 min checks (behavioral with suicide precautions) for safety. The patient will participate in group, recreational, and milieu therapies and will be offered additional individual and family sessions as clinically appropriate. -Start Invega 3mg qd with additional 3mg daily prn for agitation -Fasting lipid panel and glucose tomorrow AM -Ativan 0.5mg q6h po prn for agitation/anxiety Inventory Assets Strengths: supportive partner, recent stability in outpatient setting with a job, avoided opioid use Needs: outpatient providers, medication initiation, additional coping skills, safety and stabilization Suicide Risk Level Suicide Risk Level: High-Moderate (q15 min suicide checks) (severe depression with SI prior to admission but feels safe in the hospital and agrees to alert staff/nursing if he feels unsafe, needs extra support or develops SI with plan or intent) Risk Factors Assessment Male: Yes : Yes Do You Have Access To A Gun?: No Mental Health Diagnoses: Yes Substance Use Disorders: Yes (in sustained remission ) Previous Attempt: Yes Family History of Suicide: No Previous Psychiatric Hospitalization: Yes Protective Factors Assessment : No Employed: No Stable Relationships: Yes Supportive Family: No Good Rapport with Provider: No Interval History Identifying Information ALICIA DAVIS is a 42-year-old M who currently lives in [place] with his girlfriend, has a history of depression, opioid use disorder in sustained remission and schizoaffective disorder, and was admitted on 07/29/22 21:18 on a 201 voluntary commitment for worsening depression and inability to care for ADLs. Chief Complaint "My legs are so painful". Review of Systems Sleep Information Total Hours of Sleep: 7.5 Meal Information Percent Meal Consumed - Breakfast: 0 Percent Meal Consumed - Lunch: 100 Percent Meal Consumed - Dinner: 75 Nutrition Comment: Subjective Subjective Patient was seen & assessed and interval progress reviewed with treatment team nursing and social work. Found some relief from gabapentin yesterday and then attended groups. More nerve pain along both legs last night so he feels he didn't sleep well. Denies any medication side effects. Today again having nerve pain along both legs. BP elevated but no other associated symptoms. Feels when he gets relief from the nerve pain his mood is starting to improve. Physical Exam Psychiatric Orientation: alert and oriented x 3 Apperance: appropriately dressed and + disheveled Eye Contact: + fair eye contact Motor Behavior: no abnormal motor movements Speech: normal rate/rhythm/volume of speech Affect: + depressed affect, + anxious affect and + labile affect Mood: + depressed mood, + anxious mood and + irritable mood Thought Process: + perseveration and + concrete thought process Thought Content: + preoccupation and reality based without delusions Suicidal Thoughts: denies suicidal plan and denies suicidal intent; + reports suicidal thoughts Homicidal Thoughts: denies homicidal thoughts Hallucinations: no auditory hallucinations and no visual hallucinations Cognition: recent memory grossly intact, remote memory grossly intact, attention grossly intact and language grossly intact Estimated Intelligence: consistent with education level Insight: + limited insight Judgement: + limited judgement Vital Signs (Past 24 Hours) Last Vital Signs Temp 36.5 C 08/02/22 06:39 Pulse 105 H 08/02/22 06:40 Resp 16 08/02/22 06:39 BP 156/113 H 08/02/22 06:40 Pulse Ox 95 07/31/22 06:00 O2 Del Method 07/31/22 06:00 Results & Data ([facility]) Current Inpatient Medications Current Inpatient Medications: Current Inpatient Medications Acetaminophen (Acetaminophen 325 Mg Tab) 650 mg PO Q4H PRN PRN Reason: Headache or Minor Fever Stop: 08/28/22 22:13 Al Hydrox/Mg Hydrox/Simethicone (Aluminum/Magnesium Susp 30 Ml Udc) 30 ml PO Q4H PRN PRN Reason: GI Upset Stop: 08/28/22 22:13 Bismuth Subsalicylate (Bismuth Subsalicylate Liqd 236 Ml) 15 ml PO PRN PRN PRN Reason: Loose Stool Stop: 08/28/22 22:13 Clonidine HCl (Clonidine Hcl 0.1 Mg/24 Hr Transderm Sys) 1 patch TD Q7D [facility] Stop: 08/30/22 11:59 Last Admin: 07/31/22 13:16 Dose: 1 patch Gabapentin (Gabapentin 600 Mg Tab) 600 mg PO TID [facility] Stop: 09/01/22 13:59 Last Admin: 08/02/22 14:24 Dose: 600 mg Hydroxyzine HCl (Hydroxyzine Hcl 25 Mg Tab) 50 mg PO HSZ PRN PRN Reason: Insomnia Stop: 08/28/22 22:13 Hydroxyzine HCl (Hydroxyzine Hcl 25 Mg Tab) 25 mg PO Q4H PRN PRN Reason: Anxiety Stop: 08/28/22 22:13 Lisinopril (Lisinopril 10 Mg Tab) 10 mg PO QAM [facility] Stop: 08/30/22 08:59 Last Admin: 08/02/22 08:47 Dose: 10 mg Lorazepam (Lorazepam 0.5 Mg Tab) 0.5 mg PO Q6 PRN PRN Reason: Anxiety/Agitation Stop: 08/28/22 22:17 Last Admin: 07/31/22 20:10 Dose: 0.5 mg Magnesium Hydroxide (Magnesium Hydroxide Susp 30 Ml Udc) 30 ml PO DAILY PRN PRN Reason: Constipation Stop: 08/28/22 22:13 Miscellaneous (Check Clonidine Patch Placement) 1 each N/A QS [facility] Stop: 08/30/22 15:59 Last Admin: 08/02/22 17:37 Dose: 1 each Miscellaneous (Remove Clonidine Patch) 1 each N/A CQWK [facility] Stop: 09/06/22 11:59 Multivitamins (Multivitamin Tab) 1 tab PO QAM [facility] Stop: 08/29/22 11:29 Last Admin: 08/02/22 08:46 Dose: 1 tab Paliperidone (Paliperidone 3 Mg Tabcr) 3 mg PO DAILY PRN PRN Reason: Agitation/anxiety Stop: 08/30/22 08:59 Paliperidone (Paliperidone 3 Mg Tabcr) 6 mg PO DAILY RAMÓN Stop: 08/31/22 08:59 Last Admin: 08/02/22 08:47 Dose: 6 mg Sodium Chloride (Sodium Chloride 0.65% Na Soln 45 Ml ([place])) 1 - 2 sprays NA PRN PRN PRN Reason: Nasal Dryness/Congestion Stop: 08/28/22 22:13 Trazodone HCl (Trazodone Hcl 50 Mg Tab) 50 mg PO HS RAMÓN Stop: 08/30/22 21:59 Last Admin: 08/01/22 21:38 Dose: 50 mg Mental Health & Subst Abuse Tx Psychiatrist Name of Psychiatrist: Linda Atkinson Psychiatrist's Psychiatric Appointment Comment: [address] [facility], [place], [place] Therapist [facility]rapist: [facility] Counsel[facility] Therapist's Therapy Appointment Comment: [address] [facility], [address], [place], [place] Managed Care Director Name of Managed Care Director: [employer] [facility] Case Management Appointment Comment: A continuous pillowcase cutter will follow-up with you directly. Post Discharge Appointments Primary Care Physician Name Of Family Doctor: Chichi Loyola PA-C Provider Appointment Comment: Please follow-up with your PCP as needed.
[2022-08-02] MEDS ORDERED: LORazepam 0.5 MG TAB PO PRN (18:42)
[2022-08-02] MEDS: traZODone HCL 50 MG TAB PO SCH (21:29)
[2022-08-03] MEDS: CHECK CLONIDINE PATCH PLACEMENT SCH ×3 (06:22→16:02)
[2022-08-03] MEDS: MULTIVITAMIN TAB PO SCH (09:06)
[2022-08-03] MEDS: GABAPENTIN 600 MG TAB PO SCH ×3 (09:06→21:13)
[2022-08-03] MEDS: lisinopril 10 MG TAB PO SCH (09:06)
[2022-08-03] MEDS: PALIPERIDONE 3 MG TABCR PO SCH (09:07)
--- NOTE | 2022-08-03 11:11 | Psychiatric Progress Note ---
Date of Service August 03, 2022 Impression / Recommendations Jazmin Rodriguez is a 42 year old with a history of schizoaffective disorder, opioid disorder in sustained remission, depression, anxiety and PTSD who was admitted for worsening depression with SI, inability to attend to ADLs and increased paranoia in the context of recent taper off of long-term methadone and feeling isolated from his extended family. Significant psychic distress. Diagnostically consistent with unspecified depression and psychosis, given history seems most consistent with schizophrenia vs schizoaffective disorder with current severe depressive episode versus major depression with psychotic features versus delusional disorder. The patient is deemed unstable and requires psychiatric hospitalization for diagnostic clarification, safety and stabilization, medication management and development of further coping skills. MNPR due to poor hygiene, paranoia, high irritability/anger 08/03/22: Remains depressed with increased tearfulness today after urinary incontinence last night. No signs of cauda equina syndrome per his report or changes in nature or quality of nerve pain in his legs, still ambulating with normal and stable gait. Will discontinue trazodone given nightmares and suspect sedation may have lead to urinary incontinence. He wishes to continue with gabapentin and tolerating this well. Continues to tolerate Invega. May consider addition of SSRI. (1) Schizoaffective disorder, depressive type: (2) Paranoia (psychosis): (3) Suicidal thoughts: (4) Major depression: (5) HTN (hypertension): (6) High triglycerides: -follow-up with PCP to discuss monitoring frequency and if needed treatment -Reviewed exercise and healthy diet can be helpful Plan 08/03/22: Discontinue trazodone and ativan. 08/02/22: Increase gabapentin 600mg TID 08/01/22: Start gabapentin 300mg TID prn for nerve pain 07/31/22: Start trazodone 50mg qhs, clonidine patch 0.1mg/24 hours 07/30/22: The patient was [facility] ([facility] mental health unit) on q15 min checks (behavioral with suicide precautions) for safety. The patient will participate in group, recreational, and milieu therapies and will be offered additional individual and family sessions as clinically appropriate. -Start Invega 3mg qd with additional 3mg daily prn for agitation -Fasting lipid panel and glucose tomorrow AM -Ativan 0.5mg q6h po prn for agitation/anxiety Inventory Assets Strengths: supportive partner, recent stability in outpatient setting with a job, avoided opioid use Needs: outpatient providers, medication initiation, additional coping skills, safety and stabilization Suicide Risk Level Suicide Risk Level: High-Moderate (q15 min suicide checks) (severe depression with SI prior to admission but feels safe in the hospital and agrees to alert staff/nursing if he feels unsafe, needs extra support or develops SI with plan or intent) Risk Factors Assessment Male: Yes : Yes Do You Have Access To A Gun?: No Mental Health Diagnoses: Yes Substance Use Disorders: Yes (in sustained remission ) Previous Attempt: Yes Family History of Suicide: No Previous Psychiatric Hospitalization: Yes Protective Factors Assessment : No Employed: No Stable Relationships: Yes Supportive Family: No Good Rapport with Provider: No Interval History Identifying Information ALICIA DAVIS is a 42-year-old M who currently lives in [place] with his girlfriend, has a history of depression, opioid use disorder in sustained remission and schizoaffective disorder, and was admitted on 07/29/22 21:18 on a 201 voluntary commitment for worsening depression and inability to care for ADLs. Chief Complaint "I'm just so embarrassed". Review of Systems Sleep Information Total Hours of Sleep: 6.5 Meal Information Percent Meal Consumed - Breakfast: 0 Percent Meal Consumed - Lunch: 100 Percent Meal Consumed - Dinner: 75 Subjective Subjective Patient was seen & assessed and interval progress reviewed with treatment team nursing and social work. Responded well to higher dose of gabapentin with improvement of nerve pain in his legs and engaged in groups and felt his mood was improving. Nerve pain increased around bedtime but he took gabapentin and trazodone and was able to sleep. However states he slept very deeply and noted "there's some kind of evil coming through my dreams" noting awful nightmares. On awakening he discussed he had an episode of urnary incontinence which he's never experienced in his adult life and has understandably caused him to feel overwhelmed and tearful this morning. Processed this with him and he notes feeling better from reassurance and no nerve pain this morning after dose of gabapentin. Nerve pain remains only present on both legs in sciatica distribution. He denies that the pain is getting worse, denies any back pain, denies any saddle region numbness or tingling, denies any issues with bowel movements or urination this morning and denies any new nerve or motor symptoms or changes. Agrees to alert nursing right away if this were to change or if he developed any type of saddle region numbness/tingling/odd sensations or changes with urination/bowel movements. Feels more depressed today due to events last night. Wants to continue with gabapentin but wants to stop the trazodone. Physical Exam Psychiatric Orientation: alert and oriented x 3 Apperance: appropriately dressed and + disheveled Eye Contact: + fair eye contact Motor Behavior: no abnormal motor movements Speech: normal rate/rhythm/volume of speech Affect: + depressed affect, + anxious affect and + tearful affect Mood: + depressed mood and + anxious mood Thought Process: + perseveration and + concrete thought process Thought Content: reality based without delusions Suicidal Thoughts: denies suicidal plan and denies suicidal intent; + reports suicidal thoughts Homicidal Thoughts: denies homicidal thoughts Hallucinations: no auditory hallucinations and no visual hallucinations Cognition: recent memory grossly intact, remote memory grossly intact, attention grossly intact and language grossly intact Estimated Intelligence: consistent with education level Insight: + limited insight Judgement: + limited judgement Vital Signs (Past 24 Hours) Last Vital Signs Temp 36.7 C 08/03/22 06:43 Pulse 108 H 08/03/22 06:44 Resp 16 08/03/22 06:43 BP 135/96 08/03/22 06:44 Pulse Ox 95 07/31/22 06:00 O2 Del Method 07/31/22 06:00 Results & Data ([facility]) Current Inpatient Medications Current Inpatient Medications: Current Inpatient Medications Acetaminophen (Acetaminophen 325 Mg Tab) 650 mg PO Q4H PRN PRN Reason: Headache or Minor Fever Stop: 08/28/22 22:13 Al Hydrox/Mg Hydrox/Simethicone (Aluminum/Magnesium Susp 30 Ml Udc) 30 ml PO Q4H PRN PRN Reason: GI Upset Stop: 08/28/22 22:13 Bismuth Subsalicylate (Bismuth Subsalicylate Liqd 236 Ml) 15 ml PO PRN PRN PRN Reason: Loose Stool Stop: 08/28/22 22:13 Clonidine HCl (Clonidine Hcl 0.1 Mg/24 Hr Transderm Sys) 1 patch TD Q7D RAMÓN Stop: 08/30/22 11:59 Last Admin: 07/31/22 13:16 Dose: 1 patch Gabapentin (Gabapentin 600 Mg Tab) 600 mg PO TID RAMÓN Stop: 09/01/22 13:59 Last Admin: 08/03/22 09:06 Dose: 600 mg Hydroxyzine HCl (Hydroxyzine Hcl 25 Mg Tab) 50 mg PO HSZ PRN PRN Reason: Insomnia Stop: 08/28/22 22:13 Hydroxyzine HCl (Hydroxyzine Hcl 25 Mg Tab) 25 mg PO Q4H PRN PRN Reason: Anxiety Stop: 08/28/22 22:13 Lisinopril (Lisinopril 10 Mg Tab) 10 mg PO QAM [facility] Stop: 08/30/22 08:59 Last Admin: 08/03/22 09:06 Dose: 10 mg Lorazepam (Lorazepam 0.5 Mg Tab) 0.5 mg PO DAILY PRN PRN Reason: Anxiety/Agitation Stop: 08/28/22 22:17 Magnesium Hydroxide (Magnesium Hydroxide Susp 30 Ml Udc) 30 ml PO DAILY PRN PRN Reason: Constipation Stop: 08/28/22 22:13 Miscellaneous (Check Clonidine Patch Placement) 1 each N/A QS [facility] Stop: 08/30/22 15:59 Last Admin: 08/03/22 09:09 Dose: 1 each Miscellaneous (Remove Clonidine Patch) 1 each N/A CQWK [facility] Stop: 09/06/22 11:59 Multivitamins (Multivitamin Tab) 1 tab PO QAM [facility] Stop: 08/29/22 11:29 Last Admin: 08/03/22 09:06 Dose: 1 tab Paliperidone (Paliperidone 3 Mg Tabcr) 3 mg PO DAILY PRN PRN Reason: Agitation/anxiety Stop: 08/30/22 08:59 Paliperidone (Paliperidone 3 Mg Tabcr) 6 mg PO DAILY RAMÓN Stop: 08/31/22 08:59 Last Admin: 08/03/22 09:07 Dose: 6 mg Sodium Chloride (Sodium Chloride 0.65% Na Soln 45 Ml ([place])) 1 - 2 sprays NA PRN PRN PRN Reason: Nasal Dryness/Congestion Stop: 08/28/22 22:13 Trazodone HCl (Trazodone Hcl 50 Mg Tab) 50 mg PO HS RAMÓN Stop: 01/10/23 21:59 Last Admin: 08/02/22 21:29 Dose: 50 mg Mental Health & Subst Abuse Tx Psychiatrist Name of Psychiatrist: Linda Atkinson Psychiatrist's Psychiatric Appointment Comment: [address] [facility], [place], [place] Therapist Name of Therapist: [facility] Therapist's Therapy Appointment Comment: [address], [address], [place], [place] Filterer Name of Filterer: [employer] Case Management Appointment Comment: A telephonic nurse case manager will follow-up with you directly. Post Discharge Appointments Primary Care Physician Name Of Family Doctor: Chichi Loyola PA-C Provider Appointment Comment: Please follow-up with your PCP as needed.
[2022-08-04] MEDS: CHECK CLONIDINE PATCH PLACEMENT SCH ×3 (02:36→15:59)
[2022-08-04] MEDS: PALIPERIDONE 3 MG TABCR PO SCH (09:07)
[2022-08-04] MEDS: MULTIVITAMIN TAB PO SCH (09:07)
[2022-08-04] MEDS: lisinopril 10 MG TAB PO SCH (09:07)
[2022-08-04] MEDS: GABAPENTIN 600 MG TAB PO SCH ×3 (09:07→20:29)
--- NOTE | 2022-08-04 11:43 | Psychiatric Progress Note ---
Date of Service August 04, 2022 Impression / Recommendations Impression Alicia is a 42 year old with a history of schizoaffective disorder, opioid disorder in sustained remission, depression, anxiety and PTSD who was admitted for worsening depression with SI, inability to attend to ADLs and increased paranoia in the context of recent taper off of long-term methadone and feeling isolated from his extended family. Significant psychic distress. Diagnostically consistent with unspecified depression and psychosis, given history seems most consistent with schizophrenia vs schizoaffective disorder with current severe depressive episode versus major depression with psychotic features versus delusional disorder. The patient is deemed unstable and requires psychiatric hospitalization for diagnostic clarification, safety and stabilization, medication management and development of further coping skills. MNPR due to poor hygiene, paranoia, high irritability/anger 08/04/22: Depression improving but still with some tearfulness and periods of anger intermittently. Had family meeting. Discussed medication treatment options for insomnia. Discussed risks, benefits and alternatives. Patient would like to start and consented to mirtazapine for insomnia. Reviewed side effects including but not limited to: sedation, increased appetite/weight gain. (1) Schizoaffective disorder, depressive type: (2) Paranoia (psychosis): (3) Suicidal thoughts: (4) Major depression: (5) HTN (hypertension): (6) High triglycerides: -follow-up with PCP to discuss monitoring frequency and if needed treatment -Reviewed exercise and healthy diet can be helpful Plan 08/04/22: Start mirtazapine 15mg qhs for insomnia and depression. 08/03/22: Discontinue trazodone and ativan. 08/02/22: Increase gabapentin 600mg TID 08/01/22: Start gabapentin 300mg TID prn for nerve pain 07/31/22: Start trazodone 50mg qhs, clonidine patch 0.1mg/24 hours 07/30/22: The patient was [facility]) on q15 min checks (behavioral with suicide precautions) for safety. The patient will participate in group, recreational, and milieu therapies and will be offered additional individual and family sessions as clinically appropriate. -Start Invega 3mg qd with additional 3mg daily prn for agitation -Fasting lipid panel and glucose tomorrow AM -Ativan 0.5mg q6h po prn for agitation/anxiety Inventory Assets Strengths: supportive partner, recent stability in outpatient setting with a job, avoided opioid use Needs: outpatient providers, medication initiation, additional coping skills, safety and stabilization Suicide Risk Level Suicide Risk Level: Moderate (q15 min suicide checks) (severe depression with SI prior to admission but depression improving, denies SI and feels safe in the hospital and agrees to alert staff/nursing if he feels unsafe, needs extra support or develops SI with plan or intent) Risk Factors Assessment Male: Yes : Yes Do You Have Access To A Gun?: No Mental Health Diagnoses: Yes Substance Use Disorders: Yes (in sustained remission ) Previous Attempt: Yes Family History of Suicide: No Previous Psychiatric Hospitalization: Yes Protective Factors Assessment : No Employed: No Stable Relationships: Yes Supportive Family: No Good Rapport with Provider: No Interval History Identifying Information ALICIA DAVIS is a 42-year-old M who currently lives in [place] with his girlfriend, has a history of depression, opioid use disorder in sustained remission and schizoaffective disorder, and was admitted on 07/29/22 21:18 on a 201 voluntary commitment for worsening depression and inability to care for ADLs. Chief Complaint "I didn't sleep well at all". Review of Systems Sleep Information Total Hours of Sleep: 5.5 Meal Information Percent Meal Consumed - Breakfast: 50 Percent Meal Consumed - Lunch: 100 Percent Meal Consumed - Dinner: 100 Subjective Subjective Patient was seen & assessed and interval progress reviewed with treatment team nursing and social work. He felt more tearful last night but feels otherwise had a good day yesterday. No further incontinence overnight. Struggled to sleep without trazodone. Wants some type of medication to help with this. No other medication side effects, nerve pain has improved with gabapentin. Feels frustrated about limited mental health resources locally but discussed further with social work and felt better after that. Physical Exam Psychiatric Orientation: alert and oriented x 3 Apperance: appropriately dressed and + disheveled Eye Contact: + fair eye contact Motor Behavior: no abnormal motor movements Speech: normal rate/rhythm/volume of speech Affect: + depressed affect, + anxious affect and + tearful affect Mood: + depressed mood and + anxious mood Thought Process: + concrete thought process Thought Content: reality based without delusions Suicidal Thoughts: denies suicidal thoughts, denies suicidal plan and denies suicidal intent Homicidal Thoughts: denies homicidal thoughts Hallucinations: no auditory hallucinations and no visual hallucinations Cognition: recent memory grossly intact, remote memory grossly intact, attention grossly intact and language grossly intact Estimated Intelligence: consistent with education level Insight: + limited insight Judgement: + limited judgement Vital Signs (Past 24 Hours) Last Vital Signs Temp 36.3 C L 08/04/22 06:37 Pulse 92 H 08/04/22 06:38 Resp 16 08/04/22 06:38 BP 125/86 08/04/22 06:38 Pulse Ox 95 07/31/22 06:00 O2 Del Method 07/31/22 06:00 Results & Data ([facility]) Current Inpatient Medications Current Inpatient Medications: Current Inpatient Medications Acetaminophen (Acetaminophen 325 Mg Tab) 650 mg PO Q4H PRN PRN Reason: Headache or Minor Fever Stop: 08/28/22 22:13 Al Hydrox/Mg Hydrox/Simethicone (Aluminum/Magnesium Susp 30 Ml Udc) 30 ml PO Q4H PRN PRN Reason: GI Upset Stop: 08/28/22 22:13 Bismuth Subsalicylate (Bismuth Subsalicylate Liqd 236 Ml) 15 ml PO PRN PRN PRN Reason: Loose Stool Stop: 08/28/22 22:13 Clonidine HCl (Clonidine Hcl 0.1 Mg/24 Hr Transderm Sys) 1 patch TD Q7D [facility] Stop: 08/30/22 11:59 Last Admin: 07/31/22 13:16 Dose: 1 patch Gabapentin (Gabapentin 600 Mg Tab) 600 mg PO TID [facility] Stop: 09/01/22 13:59 Last Admin: 08/04/22 09:07 Dose: 600 mg Hydroxyzine HCl (Hydroxyzine Hcl 25 Mg Tab) 50 mg PO HSZ PRN PRN Reason: Insomnia Stop: 08/28/22 22:13 Hydroxyzine HCl (Hydroxyzine Hcl 25 Mg Tab) 25 mg PO Q4H PRN PRN Reason: Anxiety Stop: 08/28/22 22:13 Lisinopril (Lisinopril 10 Mg Tab) 10 mg PO QAM [facility] Stop: 08/30/22 08:59 Last Admin: 08/04/22 09:07 Dose: 10 mg Magnesium Hydroxide (Magnesium Hydroxide Susp 30 Ml Udc) 30 ml PO DAILY PRN PRN Reason: Constipation Stop: 08/28/22 22:13 Miscellaneous (Check Clonidine Patch Placement) 1 each N/A QS [facility] Stop: 08/30/22 15:59 Last Admin: 08/04/22 09:07 Dose: 1 each Miscellaneous (Remove Clonidine Patch) 1 each N/A CQWK [facility] Stop: 09/06/22 11:59 Multivitamins (Multivitamin Tab) 1 tab PO QAM RAMÓN Stop: 08/29/22 11:29 Last Admin: 08/04/22 09:07 Dose: 1 tab Paliperidone (Paliperidone 3 Mg Tabcr) 3 mg PO DAILY PRN PRN Reason: Agitation/anxiety Stop: 08/30/22 08:59 Paliperidone (Paliperidone 3 Mg Tabcr) 6 mg PO DAILY RAMÓN Stop: 08/31/22 08:59 Last Admin: 08/04/22 09:07 Dose: 6 mg Sodium Chloride (Sodium Chloride 0.65% Na Soln 45 Ml ([place])) 1 - 2 sprays NA PRN PRN PRN Reason: Nasal Dryness/Congestion Stop: 08/28/22 22:13 Mental Health & Subst Abuse Tx Psychiatrist Name of Psychiatrist: Linda Atkinson Psychiatrist's Psychiatric Appointment Comment: [address] [facility], [place], [place] Therapist Name of Therapist: Shantell Boles Therapist's Date of Therapist Appointment: 08/23/21 Time of Therapist Appointment: 12:30 PM Therapy Appointment Comment: [address], [address], [place], [place] Crew Team Member Name of Crew Team Member: Margot Eller Phone Number for Crew Team Member: [phone] Case Management Appointment Comment: A case supervisor will follow-up with you directly. Post Discharge Appointments Primary Care Physician Name Of Family Doctor: Chichi Loyola PACasiC Provider Appointment Comment: Please follow-up with your PCP as needed. Contact Information Discharge Discharge Address: [address], [address], [place], [place]
[2022-08-04] MEDS ORDERED: MIRTAZAPINE TAB 15 MG TAB PO SCH (22:00)
[2022-08-05] MEDS: CHECK CLONIDINE PATCH PLACEMENT SCH ×2 (02:33→09:10)
[2022-08-05] MEDS: GABAPENTIN 600 MG TAB PO SCH (09:06)
[2022-08-05] MEDS: MULTIVITAMIN TAB PO SCH (09:07)
[2022-08-05] MEDS: PALIPERIDONE 3 MG TABCR PO SCH (09:07)
[2022-08-05] MEDS: lisinopril 10 MG TAB PO SCH (09:07)
--- NOTE | 2022-08-05 09:31 | Discharge Summary ---
Date of Service August 05, 2022 History of Present Illness Michael presents for psychiatric admission for worsening depression and inability to attend to his ADLs including poor sleep, appetite, hygiene and increased social isolation. He has not taken any psychiatric medications for the last 8 months, states he stopped them because "I had to keep getting shot and getting blood taken and they missed and missed and I was feeling ok so I stopped it". Has not seen any outpatient psychiatric providers since 8 months ago as he states he didn't like going to [facility] noting he didn't feel very comfortable with his provider as he felt "scrutinized". He was last hospitalized on [facility] in April 2021 and at that time was discharged on clonidine, Vistaril, Buspar, prazosin, Abilify KELLY, clozapine, and he was continuing with his methadone. He notes he stopped methadone as he felt like "I was ready" and he started to taper off but thought the staff thought he was doing it to quickly and felt like they started to question him and "mess with me". He's been off methadone for 6 weeks and notes "I'm feeling like sh*t". He states "I'm not functioning at home, I'm not even taking care of myself" and "something is going on in my head". He couldn't function so had to leave his job at the end of May. He has thoughts of suicide but no plans. He notes that waking up each morning "is such a disappointment". He's often alone during the day as his girlfriend works higher level teaching assistant and then sleeps during the day. He endorses paranoia "about other people" and that "I've seen some things" noting that his neighbor and a man in a truck were watching him and messing with him. Notes that he feels like there is "e lectricity inside of me, it almost hurts". Denies auditory hallucinations. States last week due to the depression he did think about "going on some type of crime spree and then throwing my life away that way until the head custodian came and put me away" but notes that he never developed a specific plan nor intent and becomes tearful noting "I'm not a violent person so I don't think I could ever do that". Denies any current violent thoughts. He's tried reaching out to a family member and then ignored his message. Tearful in expressing not seeing his extended family in many years and being cut off due to past substance use and that they continue to chose not to have contact with him. States he feels continuing to live is pointless as he doesn't have "family, money, a career" noting "I made nothing for myself". Physical Exam Vital Signs (Past 24 Hours) Last Vital Signs Temp 36.2 C L 08/05/22 09:25 Pulse 99 H 08/05/22 09:25 Resp 16 08/05/22 09:25 BP 135/96 08/05/22 09:25 Pulse Ox 95 08/05/22 09:25 O2 Del Method 07/31/22 06:00 See admission H&P and DOD summary. Principal Diagnosis Major Depressive Disorder Psychiatric Data See daily stay summary. Presentation felt to be most consistent with major depressive disorder and schizoaffective disorder (though paranoia cleared quickly and could have represented a depression with psychotic features or complex trauma component). In short, patient was engaged with the social/therapeutic milieu of the unit, safety was maintained and the patient was cooperative with care though he did have intermittent periods of increased anger and irritability but never with physical aggression and never required emergent medications nor behavioral events. Medication changes included initiation of Invega 6mg daily for psychosis and depression augmentation, mirtazapine 15mg hs for depression/insomnia, and gabapentin titrated to 600mg TID for nerve pain and off-label use for anxiety. His blood pressure was significantly elevated during his ED presentation and initial days of admission so lisinopril 10mg qd was started and he was on a clonidine patch for a few days to help with HTN and prolonged withdrawal symptoms from recent discontinuation of methadone. He tolerated all the medication changes well. Encouraged him to discuss nerve pain, HTN, elevated BMI and elevated triglycerides with his new primary care provider. Baseline labs of fasting glucose, fasting lipid profile, and weight were preformed and notable for abnormalities of elevated TGs, low HDL and elevated BMI. Recommend repeat weight in one month. Recommend repeat fasting glucose and fasting lipid profile every 12 weeks and then annually. If symptoms arise recommend checking BP, EKG, prolactin level as clinically indicated or relevant. A family session was held and safety plan was completed prior to discharge. He participated in safety planning and in discussions about ways to seek support and recognizing warning signs and utilizing coping skills. Reviewed mobile apps that could be used for additional ways to have their safety plan and contacts easily available should thoughts of SI re-emerge in the future. Reviewed importance of seeking emergency care should SI intensify, worsen or should they feel unsafe in the future which they agree to do. On the day of discharge he stated his mood was "good" and remained future-oriented including spending time with his girlfriend, seeing his kids and engaging in aftercare appointments for psychiatry, therapy and case management. After discharge was notified by pharmacy that Invega required prior authorization. Completed this based on three prior failed trials of alternative antipsychotics including haldol, Abilify and seroquel and also sent him a 7 day script for risperidone 0.5mg qd to take until Invega gets approved. Future option to transition to Invega Sustenna KELLY as he found this beneficial in the past but was not interested at this time. Day of Discharge Assessment Today the patient voices readiness for discharge. They note improvement in mood and anxiety. They deny thoughts of harm to self or others. Thoughts are organized and they are clinically improved from admission. There is no evidence of psychosis. They improved in the hospital with support and medication adjustments. They agree to take medications as prescribed and keep follow-up appointments. At the time of the discharge they are deemed to be stable and appropriate for outpatient level of care. They are not deemed to be at imminent risk of harm to self or others. They are aware of emergency and crisis services. Knows to call 911 or go to nearest emergency care center if in a crisis which cannot be handled as an outpatient. Transition of Care Transition Of Care Record: was reviewed with the patient Advance Directives Advance Directives Information Provided: Yes Advance Directives: No Mental Health Advance Directive: No Advance Directives on File: No Living Will: No Power of Dispatcher Maintenance: No Advance Directives Reason:: Declines as Mental Health Visit. Suicide Risk Level Suicide Risk Level Comments: Acute risk is low given improvement in mood and denial of SI, lack of access to lethal means, plan to avoid substance use, improvement in sleep, hopefulness, improvement in psychosis. Chronic risk is moderate given some non-modifiable ris k factors including psychiatric co-morbid diagnoses, periods of impulsivity, prior attempt, emotional reactivity, prior psychiatric hospitalizations, schizophrenia, childhood trauma but also with protective factors including long- term partner, children, supportive parents and now with new outpatient care in place. Counseled on ways to reduce acute and chronic risk including engaging with outpatient providers, using safety plan if needed, utilizing supports, taking medication, and using coping skills. Modifiable risk factors of SI, psychosis and depression were addressed during hospitalization through development of new coping skills, family meeting, safety planning, and medication adjustments. Risk Factors Assessment Male: Yes : Yes Do You Have Access To A Gun?: No Mental Health Diagnoses: Yes Substance Use Disorders: Yes (in sustained remission ) Previous Attempt: Yes Family History of Suicide: No Previous Psychiatric Hospitalization: Yes Hopelessness: No Protective Factors Assessment : No Employed: No Stable Relationships: Yes Supportive Family: Yes Good Rapport with Provider: No Opioid Risk Protocol Educated on use ofnaloxone nasal spray. Kit offered to patient. Patient declines kit today, stating, there is no need as he has been in sustained remission for opioid use disorder and has stopped methadone. Discharge Data Lab Results 07/29/22 07/29/22 07/29/22 12:35 12:35 12:35 WBC RBC Hgb Hct MCV MCH MCHC RDW Std Deviation RDW Coeff of [place]shine Plt Count MPV Immature Gran % (Auto) Neut % (Auto) Lymph % (Auto) [place] % (Auto) Eos % (Auto) Baso % (Auto) Neut # (Auto) Lymph # (Auto) [place] # (Auto) Eos # (Auto) Baso # (Auto) Immature Gran # (Auto) Sodium Potassium Chloride Carbon Dioxide Anion Gap BUN Creatinine Est Cr Clr Drug Dosing Est GFR ( Amer) Est GFR (Non-Af Amer) BUN/Creatinine Ratio Glucose Fasting Glucose Calcium Total Bilirubin AST ALT Alkaline Phosphatase Total Protein Albumin Globulin Albumin/Globulin Ratio Triglycerides Cholesterol LDL Cholesterol, Calc VLDL Cholesterol, Calc HDL Cholesterol Cholesterol/HDL Ratio TSH Urine Color Maggie Urine Appearance Cloudy A Urine pH 5.5 Ur Specific [place] >= 1.030 Urine Protein 2+ H Urine Glucose (UA) Negative Urine Ketones Trace H Urine Blood Negative Urine Nitrite Negative Urine Bilirubin 1+ H Urine Urobilinogen Negative Ur Leukocyte Esterase Negative Urine RBC 5-10 H Urine WBC 0-5 Ur Epithelial Cells 0-5 Amorphous Sediment Present A Urine Bacteria Negative Hyaline Casts 0-5 Urine Mucus Present A Salicylates Urine Opiates Screen Neg Ur Methadone, Qual Neg Acetaminophen Urine Barbiturates Neg Ur Phencyclidine (PCP) Neg U Amphetamin/Meth Scrn Neg MDMA (Ecstasy) Screen Neg U Benzodiazepines Scrn Neg Ur Cocaine Metabolite Neg U Marijuana (THC) Screen Pos H U Marijuana THC Carboxy Drug Screen Comment Ethyl Alcohol mg/dL SARS-CoV-2, RNA, NAAT NEGATIVE 07/29/22 07/29/22 07/29/22 12:35 16:06 16:06 WBC 13.64 H RBC 5.64 Hgb 17.2 Hct 50.0 MCV 88.7 MCH 30.5 MCHC 34.4 RDW Std Deviation 42.5 RDW Coeff of Sunshine 13.0 Plt Count 350 MPV 9.3 L Immature Gran % (Auto) 0.3 Neut % (Auto) 67.3 Lymph % (Auto) 26.3 [place] % (Auto) 5.3 Eos % (Auto) 0.2 Baso % (Auto) 0.6 Neut # (Auto) 9.18 H Lymph # (Auto) 3.59 H [place] # (Auto) 0.72 Eos # (Auto) 0.03 Baso # (Auto) 0.08 Immature Gran # (Auto) 0.04 H Sodium 141 Potassium 4.1 Chloride 106 Carbon Dioxide 27 Anion Gap 8 BUN 10 Creatinine 1.18 Est Cr Clr Drug Dosing 89.3 Est GFR ( Amer) 88.3 Est GFR (Non-Af Amer) 76.2 BUN/Creatinine Ratio 8.5 L Glucose 112 H Fasting Glucose Calcium 9.7 Total Bilirubin 0.7 AST 21 ALT 30 Alkaline Phosphatase 85 Total Protein 8.6 H Albumin 4.9 Globulin 3.7 Albumin/Globulin Ratio 1.3 Triglycerides Cholesterol LDL Cholesterol, Calc VLDL Cholesterol, Calc HDL Cholesterol Cholesterol/HDL Ratio TSH Urine Color Urine Appearance Urine pH Ur Specific [place] Urine Protein Urine Glucose (UA) Urine Ketones Urine Blood Urine Nitrite Urine Bilirubin Urine Urobilinogen Ur Leukocyte Esterase Urine RBC Urine WBC Ur Epithelial Cells Amorphous Sediment Urine Bacteria Hyaline Casts Urine Mucus Salicylates Urine Opiates Screen Ur Methadone, Qual Acetaminophen Urine Barbiturates Ur Phencyclidine (PCP) U Amphetamin/Meth Scrn MDMA (Ecstasy) Screen U Benzodiazepines Scrn Ur Cocaine Metabolite U Marijuana (THC) Screen U Marijuana THC Carboxy 2291 H Drug Screen Comment SEE NOTE Ethyl Alcohol mg/dL SARS-CoV-2, RNA, NAAT 07/29/22 07/29/22 07/29/22 16:06 16:06 16:06 WBC RBC Hgb Hct MCV MCH MCHC RDW Std Deviation RDW Coeff of Sunshine Plt Count MPV Immature Gran % (Auto) Neut % (Auto) Lymph % (Auto) [place] % (Auto) Eos % (Auto) Baso % (Auto) Neut # (Auto) Lymph # (Auto) [place] # (Auto) Eos # (Auto) Baso # (Auto) Immature Gran # (Auto) Sodium Potassium Chloride Carbon Dioxide Anion Gap BUN Creatinine Est Cr Clr Drug Dosing Est GFR ( Amer) Est GFR (Non-Af Amer) BUN/Creatinine Ratio Glucose Fasting Glucose Calcium Total Bilirubin AST ALT Alkaline Phosphatase Total Protein Albumin Globulin Albumin/Globulin Ratio Triglycerides Cholesterol LDL Cholesterol, Calc VLDL Cholesterol, Calc HDL Cholesterol Cholesterol/HDL Ratio TSH 3.800 Urine Color Urine Appearance Urine pH Ur Specific [place] Urine Protein Urine Glucose (UA) Urine Ketones Urine Blood Urine Nitrite Urine Bilirubin Urine Urobilinogen Ur Leukocyte Esterase Urine RBC Urine WBC Ur Epithelial Cells Amorphous Sediment Urine Bacteria Hyaline Casts Urine Mucus Salicylates < 3.0 L Urine Opiates Screen Ur Methadone, Qual Acetaminophen < 3 L Urine Barbiturates Ur Phencyclidine (PCP) U Amphetamin/Meth Scrn MDMA (Ecstasy) Screen U Benzodiazepines Scrn Ur Cocaine Metabolite U Marijuana (THC) Screen U Marijuana THC Carboxy Drug Screen Comment Ethyl Alcohol mg/dL < 10.0 SARS-CoV-2, RNA, NAAT 07/31/22 07:55 WBC RBC Hgb Hct MCV MCH MCHC RDW Std Deviation RDW Coeff of Sunshine Plt Count MPV Immature Gran % (Auto) Neut % (Auto) Lymph % (Auto) [place] % (Auto) Eos % (Auto) Baso % (Auto) Neut # (Auto) Lymph # (Auto) [place] # (Auto) Eos # (Auto) Baso # (Auto) Immature Gran # (Auto) Sodium Potassium Chloride Carbon Dioxide Anion Gap BUN Creatinine Est Cr Clr Drug Dosing Est GFR ( Amer) Est GFR (Non-Af Amer) BUN/Creatinine Ratio Glucose Fasting Glucose 99 Calcium Total Bilirubin AST ALT Alkaline Phosphatase Total Protein Albumin Globulin Albumin/Globulin Ratio Triglycerides 235 H Cholesterol 199 LDL Cholesterol, Calc 120 VLDL Cholesterol, Calc 47 H HDL Cholesterol 32 Cholesterol/HDL Ratio 6.2 H TSH Urine Color Urine Appearance Urine pH Ur Specific [place] Urine Protein Urine Glucose (UA) Urine Ketones Urine Blood Urine Nitrite Urine Bilirubin Urine Urobilinogen Ur Leukocyte Esterase Urine RBC Urine WBC Ur Epithelial Cells Amorphous Sediment Urine Bacteria Hyaline Casts Urine Mucus Salicylates Urine Opiates Screen Ur Methadone, Qual Acetaminophen Urine Barbiturates Ur Phencyclidine (PCP) U Amphetamin/Meth Scrn MDMA (Ecstasy) Screen U Benzodiazepines Scrn Ur Cocaine Metabolite U Marijuana (THC) Screen U Marijuana THC Carboxy Drug Screen Comment Ethyl Alcohol mg/dL SARS-CoV-2, RNA, NAAT Hospital Course (1) Major depression: (2) Schizoaffective disorder, depressive type: (3) Paranoia (psychosis): (4) Suicidal thoughts: (5) HTN (hypertension): (6) High triglycerides: -follow-up with PCP to discuss monitoring frequency and if needed treatment -Reviewed exercise and healthy diet can be helpful Plan 08/04/22: Start mirtazapine 15mg qhs for insomnia and depression. 08/03/22: Discontinue trazodone and ativan. 08/02/22: Increase gabapentin 600mg TID 08/01/22: Start gabapentin 300mg TID prn for nerve pain 07/31/22: Start trazodone 50mg qhs, clonidine patch 0.1mg/24 hours 07/30/22: [facility] on q15 min checks (behavioral with suicide precautions) for safety. The patient will participate in group, recreational, and milieu therapies and will be offered additional individual and family sessions as clinically appropriate. -Start Invega 3mg qd with additional 3mg daily prn for agitation -Fasting lipid panel and glucose tomorrow AM -Ativan 0.5mg q6h po prn for agitation/anxiety Mental Health & Subst Abuse Tx Psychiatrist Name of Psychiatrist: [facility] Psychiatrist's Date of Appointment with Psychiatrist: 08/24/21 Time of Appointment with Psychiatrist: 9am (link will be texted to you to start intake paperwork prior to appt) Psychiatric Appointment Comment: [address], [place] [address] Therapist Name of Therapist: Shantell Boles Therapist's Date of Therapist Appointment: 08/23/21 Time of Therapist Appointment: 12:30 PM Therapy Appointment Comment: [address], [address], [place], [place] Manager Heavy Duty Name of Manager Heavy Duty: Margot Eller Phone Number for Manager Heavy Duty: [phone] Case Management Appointment Comment: A machine adjuster leader case trim will follow-up with you directly. Post Discharge Appointments Primary Care Physician Name Of Family Doctor: SALIMA Montes [facility] Date of Appointment with PCP: 09/20/21 Time of Appointment with PCP: 2:20 PM Provider Appointment Comment: [address], [address], [place] [address] Other #1: Name of Aftercare Appointment: [place] - Certified Flanging Machine Operator: Prudence Phone Number of Aftercare Appointment: [phone] Date of Aftercare Appointment: 08/09/22 Time of Aftercare Appointment: 12:30 PM Aftercare Appointment Comment: [address], [address], [place], [place] Contact Information Discharge Discharge Address: [facility] [address] [facility] [facility] [address], [place], [place] Discharge Plan Discharge Items Patient Disposition: Home - Self-Care Reason For Visit: MENTAL HEALTH EVALUATION Discharge Diagnosis: Major Depressive Disorder, Schizoaffective Disorder Activity: Resume your previous activity Non-emergency contact: Primary Care Provider, Psychiatrist, Therapist and Vending Machine Technician Call non-emergency contact if: you have any medication questions and your symptoms worsen Follow-up/Referrals: Chichi Loyola, [Primary Care Provider] - Diet: Regular Addtl Attending Provider Instructions: Optional mobile apps: -Suicide safety plan -Virtual Hope Box SPECIAL CARE INSTRUCTIONS: 1. Follow through with your scheduled aftercare appointments. If unable to keep an appointment, please call to reschedule. 2. Take your medication only as prescribed. Medication should not be changed or stopped without the approval of your doctor. In the event of worsening symptoms or concerns about side effects, contact your doctor immediately. 3. Utilize new healthy coping skills, anger management skills, and stress management skills learned during your hospitalization. Journal feelings and process them with a support person. Identify stressors or situations that may result in relapse, deterioration or inappropriate behaviors and develop a plan to deal with those issues. 4. If your coping skills are ineffective and you are in crisis, contact your outpatient providers for direction. If unable to reach your providers, please call the [facility] CRISIS LINE AT , go to the [facility] walk-in center at [address], [address], [place], or go to the closest Emergency Room. 5. Avoid alcohol and un-prescribed drugs. 6. You have been provided with the Mental Health Advance Directives Pamphlet for your review. 7. Your condition is stable for discharge to outpatient level of care, but recovery is an ongoing process. Ifthoughts to harm yourself or others return, follow the safety plan developed during your stay. Planning for a safe return home includes securing weapons. Our treatment team recommends weaponsbe removed from the home until your outpatient provider reassesses your progress. In rare cases where the items themselvescannot be removed, guns and ammunitionshould be secured separatelyand keys stored by a reliable personoutside of the home. If you were admitted on an involuntary commitment, the police or other legal authorities may be involved in this process. AFTERCARE APPOINTMENTS: * Please call your insurance company prior to your scheduled appointment to confirm your aftercare providers are covered. Take your insurance information to your appointments. WHO TO CALL AND WHEN: Medical Emergencies: For questions or emergencies related to your hospital stay, please contact the Inpatient Behavioral Health Unit at [phone]. A solderer production line is on-call 13/03 for the Behavioral Health Unit for emergencies At any time you feel your situation is an emergency, you may also call 911 immediately. Pending Studies at Discharge: No Stand-Alone Forms: My [id number], Smoking Cessation Medications and DC Order Prescriptions: New lisinopril 10 mg Tablet 10 mg PO QAM 30 Days Qty: 30 0RF gabapentin 600 mg Tablet 600 mg PO TID 30 Days Qty: 90 0RF mirtazapine 15 mg Tablet 15 mg PO HS 30 Days Qty: 30 0RF paliperidone 6 mg tablet extended release 24 hr 6 mg PO DAILY 30 Days Qty: 30 0RF Discharge Orders: Discharge Order (Routine); Ordered 08/05/22 Ordered By: Juana Rivas Admission Data Admit Date/Time: 07/29/22 21:18 Attending Provider: Juana Rivas Admit Provider: Juana Rivas Primary Care Provider: Chichi Loyola Other Interventions: Discharge Summary Assessment (RN) Last Done: 08/05/22 09:25 PSY Interdisciplinary Discharge Planning Last Done: 08/05/22 10:15 Coding Level of Care Code 94826 D/C day mgmt > 30 min Diagnoses Major depression F32.9 Schizoaffective disorder, depressive type F25.1 Paranoia (psychosis) F22 Suicidal thoughts R45.851 HTN (hypertension) I10 High triglycerides E78.1 Time Spent (min) 40
== END 2022-08-05 11:30 | disposition home or self-care (01) | DRG 881 ==
LOC: ED 12:03 → 3S 21:18
DX: F25.1 Schizoaffective disorder, depressive type; F17.210 Nicotine dependence, cigarettes, uncomplicated; F11.21 Opioid dependence, in remission; F12.90 Cannabis use, unspecified, uncomplicated; F43.10 Post-traumatic stress disorder, unspecified; F32.9 Major depressive disorder, single episode, unspecified; R45.851 Suicidal ideations; I10 Essential (primary) hypertension; E78.1 Pure hyperglyceridemia; F22 Delusional disorders

== ENCOUNTER 2022-11-09 12:31 | Inpatient (IN) ==
[2022-11-09] MEDS ORDERED: LORazepam 1 MG TAB SL STA (14:16)
[2022-11-09 14:23] LABS: Basophils # (auto) 0.09 K/uL (0-0.2); Basophils % (auto) 0.9 %; Eosinophils # (auto) 0.03 K/uL (0-0.50); Eosinophils % (auto) 0.3 %; Hematocrit (blood only) 45.3 % (42.0-52.0); Hemoglobin 15.7 g/dl (14.0-18.0); Immature Granulocytes # (auto) 0.04 K/uL (0.01-0.20); Immature Granulocytes % (auto) 0.4 %; Lymphocytes % (auto) 27.8 %; Mean Corpuscular Hemoglobin 31.2 pg (25.0-34.0); Mean Corpuscular Hgb Conc 34.7 g/dL (32.0-36.0); Mean Corpuscular Volume 90.1 fL (80.0-100.0); Mean Platelet Volume 9.5 fL (9.4-12.4); Monocytes # (auto) 0.67 K/uL (0.11-0.59); Monocytes % (auto) 6.4 %; Neutrophils # (auto) 6.69 K/uL (1.40-6.50); Neutrophils % (auto) 64.2 %; Platelet Count 361 K/uL (130-400); RDW Standard Deviation 42.5 fL (36.4-46.3); Red Blood Count 5.03 M/uL (4.70-6.10); White Blood Count 10.42 K/ul (4.8-10.8)
[2022-11-09 14:27] LABS: Appearance Urine Clear (Clear); Bilirubin Urine Negative (Negative); Blood Urine Negative (Negative); Color Urine Yellow; Glucose Urine UA Negative (Negative); Ketones Urine 1+ (Negative); Leukocyte Esterase Urine Negative (Negative); Nitrite Urine Negative (Negative); Protein Urine Negative (Negative); Specific Gravity Urine 1.023 (1.000-1.030); Urobilinogen Urine Negative (Negative); pH Urine 5.5 (4.5-7.5)
[2022-11-09 14:29] LABS: Acetaminophen < 3 ug/ml (10-30); Albumin Globulin Ratio 1.3 (0.9-2); Albumin Level 4.6 gm/dl (3.4-5.0); BUN Creatinine Ratio 8.7 (10-20); Bilirubin,Total 0.4 mg/dl (0.2-1.0); Calcium 9.8 mg/dl (8.6-10.3); Creatinine Clr Calc Pharmacy 85.2 ml/min; Est GFR (African American) 81.6 ml/min; Est GFR (Non-African American) 70.4 ml/min; Globulin 3.6 gm/dl (2.5-4.0); Potassium 3.9 mmol/L (3.5-5.1); Salicylate < 3.0 mg/dl (3.0-30); Total Protein 8.2 gm/dl (6.0-8.3)
[2022-11-09 14:54] LABS: Amphetamines+Metham, Urine Neg (Neg); Barbiturates, Urine Neg (Neg); Benzodiazepine, Urine Neg (Neg); Cocaine, Urine Neg (Neg); MDMA (Ecstacy), Urine Neg (Neg); Methadone, Urine Neg (Neg); Opiate, Urine Neg (Neg); Phencyclidine, Urine Neg (Neg)
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
[2022-11-09] MEDS ORDERED: ALUMINUM/MAGNESIUM SUSP 30 ML UDC PO PRN (20:17)
[2022-11-09] MEDS ORDERED: BISMUTH SUBSALICYLATE LIQD 236 ML PO PRN (20:17)
[2022-11-09] MEDS ORDERED: ACETAMINOPHEN 325 MG TAB PO PRN (20:17)
[2022-11-09] MEDS ORDERED: SODIUM CHLORIDE 0.65% NA SOLN 45 ML (OCEAN) PRN (20:17)
[2022-11-09] MEDS ORDERED: hydrOXYzine HCl 25 MG TAB PO PRN (20:17)
[2022-11-09] MEDS ORDERED: MAGNESIUM HYDROXIDE SUSP 30 ML UDC PO PRN (20:17)
--- NOTE | 2022-11-09 20:42 | Emergency Department Note ---
ED Visit Note Patient is a 42-year-old male who was admitted on S. Patient was medically cleared prior to being signed out to me. Patient was signed out to me by Dr. Yip and accepted to [address] [place] [address]. .
[2022-11-10] MEDS ORDERED: LORazepam 1 MG TAB PO PRN (08:03)
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
[2022-11-10] MEDS: lamoTRIgine 100 MG TAB PO SCH (11:51)
[2022-11-10] MEDS: lisinopril 10 MG TAB PO SCH (11:53)
[2022-11-10] MEDS: buPROPion XL 150 MG TABCR PO SCH (11:54)
[2022-11-10] MEDS: metFORMIN HCL 500 MG TAB PO SCH ×2 (11:54→17:27)
[2022-11-10] MEDS: GABAPENTIN 600 MG TAB PO SCH ×2 (13:59→21:11)
[2022-11-10] MEDS: OLANZapine 10 MG TAB PO SCH (21:11)
[2022-11-10] MEDS: ATORVASTATIN 20 MG TAB PO SCH (21:11)
[2022-11-11 08:26] LABS: Chol HDL Ratio 8.9 (0-5)
--- NOTE | 2022-11-11 08:50 | Psychiatric Progress Note ---
Date of Service November 11, 2022 Impression / Recommendations Jazmin Rodriguez is a 42 year old man with a history of schizoaffective disorder, opioid disorder in sustained remission, depression, anxiety and PTSD who was admitted for worsening depression, poor attendance to ADLs and low motivation with increased SI. Diagnostically similar presentation to his past hospitalizations though this time he has been adherent with medications and has continued with outpatient therapy. Certainly some of his symptoms could be driven by negative symptoms from suspected schizoaffective disorder vs dependent PD traits vs neurovegetative symptoms from worsening depressive episode vs PTSD. He is deemed in need of psychiatric hospitalization for diagnostic clarification, safety and stabilization, medication management and development of further coping skills. MNPR due to history of impulsive aggression/agitation including during his last admission in 11/11/2022: Ongoing depression with tearfulness, guilt, apathy, poor motivation. Tolerating initiation of Wellbutrin so far. Fasting glucose elevated, fasting lipid panel with elevated TGs, total cholesterol, borderline high LDL and low HDL. He had not been adherent recently with metformin or lipitor, reviewed helpfulness of these medications for his glucose and lipid profile and importance of adherence especially while on olanzapine. Only required one dose of ativan yesterday so will continue with dose taper. (1) Suicidal ideation: (2) Major depressive disorder, recurrent severe without psychotic features: (3) Schizoaffective disorder, depressive type: (4) PTSD (post-traumatic stress disorder): (5) Diabetes mellitus: Plan 11/11/2022: Decrease ativan to 1mg daily prn, continue with other medications. 11/10/2022: The patient was admitted to the [facility] ([facility]) on q15 min checks (behavioral with suicide precautions) for safety. The patient will participate in group, recreational, and milieu therapies and will be offered additional individual and family sessions as clinically appropriate. -Start Wellbutrin XL 150mg daily for depression -Continue zyprexa 10mg hs and lamictal 150mg daily -reduce ativan from 2mg po TID prn to 1mg TID prn with goal of taper to discontinuation (he's been using at least daily and often multiple times per day, reviewed signs of withdrawal and he agrees to let nurses known if he experiences any signs of benzo withdrawal) -Discontinue doxepin Inventory Assets Strengths: supportive relationships, willing to get treatment Needs: safety and stabilization, medication adjustment, additional coping skills, increased outpatient services Suicide Risk Level Suicide Risk Level: High-Moderate (q15 min suicide checks) (due to severe depression with SI prior to admission but feels safe in the hospital, able to safety contract and agrees to let nursing/staff know should they develop plan, intent or feel unable to remain safe.) Suicide Risk Level Comments: Risk Factors Assessment Male: Yes : Yes Do You Have Access To A Gun?: No Health Problems: Yes Mental Health Diagnoses: Yes Substance Use Disorders: Yes (sustained remission) Previous Attempt: Yes Family History of Suicide: No Previous Psychiatric Hospitalization: Yes Protective Factors Assessment Responsible for Young Children: Yes Employed: No Stable Relationships: Yes Supportive Family: No Good Rapport with Provider: Yes Interval History Identifying Information ALICIA DAVIS is a 42-year-old M who currently lives in [place] with his girlfriend, has a history of depression, opioid use disorder in sustained remission and schizoaffective disorder, and was admitted on 11/09/22 20:50 on a 201 voluntary commitment for worsened depression with SI. Chief Complaint "I had pretty bad suicidal thoughts this morning". Review of Systems Sleep Information Total Hours of Sleep: 7 Meal Information Percent Meal Consumed - Breakfast: 0 Percent Meal Consumed - Lunch: 100 Percent Meal Consumed - Dinner: 100 Nutrition Comment: fluids only Subjective Subjective Patient was seen & assessed and interval progress reviewed with treatment team nursing and social work. Very tearful, feeling guilty and sad. Attending some roups. Apparently has not attended [facility] appointments since August. Had SI without plan or intent this morning that was intense. His kids remain his main reason for living. Slept poorly last night, wakes easily. Reviewed how EDISON could be playing a role in his decreased energy, motivation and frequent awakenings. No side effects so far from Wellbutrin. Still feeling very tearful. Reviewed fas ting labs, he acknowledges he hasn't been taking his lipitor or metformin. Physical Exam Psychiatric Orientation: alert and oriented x 3 Apperance: appropriately dressed and + disheveled Eye Contact: + fair eye contact Motor Behavior: no abnormal motor movements Speech: normal rate/rhythm/volume of speech Affect: + depressed affect and + tearful affect Mood: + depressed mood Thought Process: goal directed thought process Thought Content: reality based without delusions Suicidal Thoughts: denies suicidal plan and denies suicidal intent; + reports suicidal thoughts (intermittent suicidal thoughts ) Homicidal Thoughts: denies homicidal thoughts Hallucinations: no auditory hallucinations and no visual hallucinations Cognition: recent memory grossly intact, remote memory grossly intact, attention grossly intact and language grossly intact Estimated Intelligence: consistent with education level Insight: + limited insight Judgment: + limited judgement Vital Signs (Past 24 Hours) Last Vital Signs Temp 36.7 C 11/11/22 06:40 Pulse 72 11/11/22 06:40 Resp 16 11/11/22 06:40 BP 132/88 11/11/22 06:40 Pulse Ox 98 11/09/22 21:27 O2 Del Method Room Air 11/09/22 21:27 Results & Data ([facility]) Laboratory Results Laboratory Results - last 24 hr 11/11/22 07:47 Fasting Glucose 124 H Triglycerides 211 H Cholesterol 204 H LDL Cholesterol, Calc 139 VLDL Cholesterol, Calc 42 H HDL Cholesterol 23 Cholesterol/HDL Ratio 8.9 H Current Inpatient Medications Current Inpatient Medications: Current Inpatient Medications Acetaminophen (Acetaminophen 325 Mg Tab) 650 mg PO Q4H PRN PRN Reason: Headache or Minor Fever Stop: 12/09/22 20:16 Al Hydrox/Mg Hydrox/Simethicone (Aluminum/Magnesium Susp 30 Ml Udc) 30 ml PO Q4H PRN PRN Reason: GI Upset Stop: 12/09/22 20:16 Atorvastatin Calcium (Atorvastatin 20 Mg Tab) 20 mg PO HS RAMÓN Stop: 12/10/22 21:59 Last Admin: 11/10/22 21:11 Dose: 20 mg Bismuth Subsalicylate (Bismuth Subsalicylate Liqd 236 Ml) 15 ml PO PRN PRN PRN Reason: Loose Stool Stop: 12/09/22 20:16 Bupropion HCl (Bupropion Xl 150 Mg Tabcr) 150 mg PO QAM RAMÓN Stop: 12/10/22 11:44 Last Admin: 11/10/22 11:54 Dose: 150 mg Gabapentin (Gabapentin 600 Mg Tab) 600 mg PO TID RAMÓN Stop: 12/10/22 13:59 Last Admin: 11/10/22 21:11 Dose: 600 mg Hydroxyzine HCl (Hydroxyzine Hcl 25 Mg Tab) 50 mg PO HSZ PRN PRN Reason: Insomnia Stop: 12/09/22 20:16 Hydroxyzine HCl (Hydroxyzine Hcl 25 Mg Tab) 25 mg PO Q4H PRN PRN Reason: Anxiety Stop: 12/09/22 20:16 Lamotrigine (Lamotrigine 100 Mg Tab) 150 mg PO DAILY RAMÓN Stop: 12/10/22 11:29 Last Admin: 11/10/22 11:51 Dose: 150 mg Lisinopril (Lisinopril 10 Mg Tab) 10 mg PO DAILY RAMÓN Stop: 12/10/22 11:29 Last Admin: 11/10/22 11:53 Dose: 10 mg Lorazepam (Lorazepam 1 Mg Tab) 1 mg PO TID PRN PRN Reason: panic attack Stop: 12/10/22 08:02 Last Admin: 11/10/22 11:57 Dose: 1 mg Magnesium Hydroxide (Magnesium Hydroxide Susp 30 Ml Udc) 30 ml PO DAILY PRN PRN Reason: Constipation Stop: 12/09/22 20:16 Metformin HCl (Metformin Hcl 500 Mg Tab) 500 mg PO BIDM RAMÓN Stop: 12/10/22 11:44 Last Admin: 11/10/22 17:27 Dose: 500 mg Olanzapine (Olanzapine 10 Mg Tab) 10 mg PO PM RAMÓN Stop: 12/10/22 20:59 Last Admin: 11/10/22 21:11 Dose: 10 mg Sodium Chloride (Sodium Chloride 0.65% Na Soln 45 Ml ([place])) 1 - 2 sprays NA PRN PRN PRN Reason: Nasal Dryness/Congestion Stop: 12/09/22 20:16 Mental Health & Subst Abuse Tx Psychiatrist Name of Psychiatrist: [facility] Psychiatrist's Date Of Appointment With Psychiatric Provider: 11/24/2022 Time of Appointment with Psychiatrist: 11:30am Psychiatric Appointment Comment: [address] [facility] [place] [address] Therapist Name of Therapist: Shantell Dowd Therapist's Date of Therapist Appointment: 11/21/22 Time of Therapist Appointment: 3:00 pm Therapy Appointment Comment: [address], [address], [place] [address] Compliance Representative Dealer Name of Compliance Representative Dealer: None Post Discharge Appointments Primary Care Physician Name Of Family Doctor/PCP: [facility] Time of Appointment with PCP: please follow up as needed Provider Appointment Comment: [address], [place], [place] Specialist Name of Specialist: [facility]- Sleep Medicine, Sukhjinder Birch MD Phone Number for Specialist: [phone] Date of Appointment with Specialist: 11/15/22 Time of Appointment with Specialist: 3pm Specialty Appointment Comment: [facility] Sleep Lab- [address] [place], [place]
[2022-11-11] MEDS: lamoTRIgine 100 MG TAB PO SCH (10:02)
[2022-11-11] MEDS: GABAPENTIN 600 MG TAB PO SCH ×3 (10:03→21:13)
[2022-11-11] MEDS: buPROPion XL 150 MG TABCR PO SCH (10:03)
[2022-11-11] MEDS: metFORMIN HCL 500 MG TAB PO SCH ×2 (10:03→17:27)
[2022-11-11] MEDS: lisinopril 10 MG TAB PO SCH (10:04)
[2022-11-11] MEDS ORDERED: LORazepam 1 MG TAB PO PRN (15:41)
[2022-11-11] MEDS: ATORVASTATIN 20 MG TAB PO SCH (21:13)
[2022-11-11] MEDS: OLANZapine 10 MG TAB PO SCH (21:13)
[2022-11-12] MEDS: buPROPion XL 150 MG TABCR PO SCH (08:27)
[2022-11-12] MEDS: lamoTRIgine 100 MG TAB PO SCH (08:28)
[2022-11-12] MEDS: GABAPENTIN 600 MG TAB PO SCH ×3 (08:28→20:50)
[2022-11-12] MEDS: lisinopril 10 MG TAB PO SCH (08:29)
[2022-11-12] MEDS: hydrOXYzine HCl 25 MG TAB PO PRN (08:29)
[2022-11-12] MEDS: metFORMIN HCL 500 MG TAB PO SCH ×2 (08:29→17:46)
[2022-11-12 12:12] LABS: Marijuana Quant, GCMS Urine 1419 ng/mL (<5)
[2022-11-12] MEDS: ATORVASTATIN 20 MG TAB PO SCH (20:50)
[2022-11-12] MEDS: OLANZapine 10 MG TAB PO SCH (20:50)
--- NOTE | 2022-11-12 23:27 | Psychiatric Progress Note ---
Date of Service November 12, 2022 Impression / Recommendations Jazmin Rodriguez is a 42 year old man with a history of schizoaffective disorder, opioid disorder in sustained remission, depression, anxiety and PTSD who was admitted for worsening depression, poor attendance to ADLs and low motivation with increased SI. Diagnostically similar presentation to his past hospitalizations though this time he has been adherent with medications and has continued with outpatient therapy. Certainly some of his symptoms could be driven by negative symptoms from suspected schizoaffective disorder vs dependent PD traits vs neurovegetative symptoms from worsening depressive episode vs PTSD. He is deemed in need of psychiatric hospitalization for diagnostic clarification, safety and stabilization, medication management and development of further coping skills. MNPR due to history of impulsive aggression/agitation including during his last admission in 11/12/2022: Tells me he doesn't think the medication (bupropion XL 150 mg of which his first dose was this morning) is working. Has sleep medicine appointment soon. Discussed connection between untreated EDISON and depression and treatment responses. He reports no new or worse problems and acknowledges that both the nature and the severity of his current symptoms are essentially "the same as they usually are". Presents with blunted, nearly flat, affect. He remains apathetic and anhedonic, and somewhat dependent, but has participated reasonably well in the milieu. Has a family meeting this afternoon and should be appropriate for discharge tomorrow. Devoted a bit over an hour to cognitive-behavioral therapy addressing reasonable expectations of medication but also of life in general - "ordinary happiness level). He reports no adverse effects attributable to medication. 11/11/2022: Ongoing depression with tearfulness, guilt, apathy, poor motivation. Tolerating initiation of Wellbutrin so far. Fasting glucose elevated, fasting lipid panel with elevated TGs, total cholesterol, borderline high LDL and low HDL. He had not been adherent recently with metformin or lipitor, reviewed helpfulness of these medications for his glucose and lipid profile and importance of adherence especially while on olanzapine. Only required one dose of ativan yesterday so will continue with dose taper. (1) Schizoaffective disorder, depressive type: Present on Admission?: Yes (2) PTSD (post-traumatic stress disorder): Present on Admission?: Yes (3) Suicidal ideation: Present on Admission?: Yes (4) Diabetes mellitus: Suicide Risk Level Suicide Risk Level: Moderate (q15 min suicide checks) (due to severe depression with SI prior to admission but feels safe in the hospital, able to safety contract and agrees to let nursing/staff know should they develop plan, intent or feel unable to remain safe.) Risk Factors Assessment Male: Yes : Yes Do You Have Access To A Gun?: No Health Problems: Yes Mental Health Diagnoses: Yes Substance Use Disorders: Yes (sustained remission) Previous Attempt: Yes Family History of Suicide: No Previous Psychiatric Hospitalization: Yes Protective Factors Assessment Responsible for Young Children: Yes Employed: No Stable Relationships: Yes Supportive Family: No Good Rapport with Provider: Yes Interval History Identifying Information ALICIA DAVIS is a 42-year-old M who currently lives in [place] with his girlfriend, has a history of depression, opioid use disorder in sustained remission and schizoaffective disorder, and was admitted on 11/09/22 20:50 on a 201 voluntary commitment for worsened depression with SI. Chief Complaint "That medicine isn't working". Review of Systems Sleep Information Total Hours of Sleep: 7 Meal Information Percent Meal Consumed - Breakfast: 50 Percent Meal Consumed - Lunch: 100 Percent Meal Consumed - Dinner: 100 Nutrition Comment: fluids only Subjective Subjective Patient was seen & assessed and interval progress reviewed with nursing and social work. For detail, see the Impressions section. Physical Exam Psychiatric Orientation: alert and oriented x 3 Apperance: appropriately dressed, appropriately groomed and + disheveled Eye Contact: good eye contact and + fair eye contact Motor Behavior: no abnormal motor movements Speech: normal rate/rhythm/volume of speech Affect: + blunted affect Mood: + depressed mood and + anxious mood Thought Process: goal directed thought process Thought Content: reality based without delusions Suicidal Thoughts: denies suicidal plan and denies suicidal intent; + reports suicidal thoughts (intermittent suicidal thoughts ) Homicidal Thoughts: denies homicidal thoughts Hallucinations: no auditory hallucinations and no visual hallucinations Cognition: recent memory grossly intact, remote memory grossly intact, attention grossly intact and language grossly intact Estimated Intelligence: consistent with education level Insight: + limited insight Judgment: + limited judgement Vital Signs (Past 24 Hours) Last Vital Signs Temp 36.2 C L 11/12/22 20:00 Pulse 69 11/12/22 06:34 Resp 16 11/12/22 06:33 BP 138/97 11/12/22 06:34 Pulse Ox 98 11/09/22 21:27 O2 Del Method Room Air 11/09/22 21:27 Results & Data ([facility]) Laboratory Results Laboratory Results - last 24 hr 11/09/22 12:49 U Marijuana THC Carboxy 1419 H Drug Screen Comment SEE NOTE Current Inpatient Medications Current Inpatient Medications: Current Inpatient Medications Acetaminophen (Acetaminophen 325 Mg Tab) 650 mg PO Q4H PRN PRN Reason: Headache or Minor Fever Stop: 12/09/22 20:16 Al Hydrox/Mg Hydrox/Simethicone (Aluminum/Magnesium Susp 30 Ml Udc) 30 ml PO Q4H PRN PRN Reason: GI Upset Stop: 12/09/22 20:16 Atorvastatin Calcium (Atorvastatin 20 Mg Tab) 20 mg PO HS RAMÓN Stop: 12/10/22 21:59 Last Admin: 11/12/22 20:50 Dose: 20 mg Bismuth Subsalicylate (Bismuth Subsalicylate Liqd 236 Ml) 15 ml PO PRN PRN PRN Reason: Loose Stool Stop: 12/09/22 20:16 Bupropion HCl (Bupropion Xl 150 Mg Tabcr) 150 mg PO QAM RAMÓN Stop: 12/10/22 11:44 Last Admin: 11/12/22 08:27 Dose: 150 mg Gabapentin (Gabapentin 600 Mg Tab) 600 mg PO TID RAMÓN Stop: 12/10/22 13:59 Last Admin: 11/12/22 20:50 Dose: 600 mg Hydroxyzine HCl (Hydroxyzine Hcl 25 Mg Tab) 50 mg PO HSZ PRN PRN Reason: Insomnia Stop: 12/09/22 20:16 Hydroxyzine HCl (Hydroxyzine Hcl 25 Mg Tab) 25 mg PO Q4H PRN PRN Reason: Anxiety Stop: 12/09/22 20:16 Last Admin: 11/12/22 08:29 Dose: 25 mg Lamotrigine (Lamotrigine 100 Mg Tab) 150 mg PO DAILY RAMÓN Stop: 12/10/22 11:29 Last Admin: 11/12/22 08:28 Dose: 150 mg Lisinopril (Lisinopril 10 Mg Tab) 10 mg PO DAILY RAMÓN Stop: 12/10/22 11:29 Last Admin: 11/12/22 08:29 Dose: 10 mg Lorazepam (Lorazepam 1 Mg Tab) 1 mg PO DAILY PRN PRN Reason: panic attack Stop: 12/10/22 08:02 Last Admin: 11/12/22 19:26 Dose: 1 mg Magnesium Hydroxide (Magnesium Hydroxide Susp 30 Ml Udc) 30 ml PO DAILY PRN PRN Reason: Constipation Stop: 12/09/22 20:16 Metformin HCl (Metformin Hcl 500 Mg Tab) 500 mg PO BIDM RAMÓN Stop: 12/10/22 11:44 Last Admin: 11/12/22 17:46 Dose: 500 mg Olanzapine (Olanzapine 10 Mg Tab) 10 mg PO PM RAMÓN Stop: 12/10/22 20:59 Last Admin: 11/12/22 20:50 Dose: 10 mg Sodium Chloride (Sodium Chloride 0.65% Na Soln 45 Ml ([place])) 1 - 2 sprays NA PRN PRN PRN Reason: Nasal Dryness/Congestion Stop: 12/09/22 20:16 Mental Health & Subst Abuse Tx Psychiatrist Name of Psychiatrist: Psychiatrist's Date Of Appointment With Psychiatric Provider: 11/24/2022 Time of Appointment with Psychiatrist: 11:30am Psychiatric Appointment Comment: [address] [facility] [place] [address] Therapist Name of Therapist: Shantell Dowd Therapist's Date of Therapist Appointment: 11/21/22 Time of Therapist Appointment: 3:00 pm Therapy Appointment Comment: [address], [address], [place] [address] Radio Communication Coordinator Name of Radio Communication Coordinator: None Post Discharge Appointments Primary Care Physician [facility] Time of Appointment with PCP: please follow up as needed Provider Appointment Comment: [address], [place], [place] Specialist Name of Specialist: [facility]- Sleep Medicine, Sukhjinder Birch MD Phone Number for Specialist: [phone] Date of Appointment with Specialist: 11/15/22 Time of Appointment with Specialist: 3pm Specialty Appointment Comment: [facility]- [address] [place], [place] E&M Selection based on Time Time Spent Minutes Spent on Pre-Visit Items: 13 (multidisciplinary treatment team meeting, coordination of care) Minutes Spent During Visit: 61 (cognitive-behavioral therapy addressing cognitive distortions around expectations) Minutes Spent Post-Visit: 11 (documentation, communication with relevant members of the treatment team) Total Minutes Spent: 85
[2022-11-13] MEDS: GABAPENTIN 600 MG TAB PO SCH ×3 (08:40→20:40)
[2022-11-13] MEDS: lamoTRIgine 100 MG TAB PO SCH (08:40)
[2022-11-13] MEDS: buPROPion XL 150 MG TABCR PO SCH (08:40)
[2022-11-13] MEDS: metFORMIN HCL 500 MG TAB PO SCH ×2 (08:41→17:48)
[2022-11-13] MEDS: lisinopril 10 MG TAB PO SCH (08:41)
[2022-11-13] MEDS: hydrOXYzine HCl 25 MG TAB PO PRN (08:57)
--- NOTE | 2022-11-13 11:32 | Psychiatric Progress Note ---
Date of Service November 13, 2022 Impression / Recommendations Jazmin Rodriguez is a 42 year old man with a history of schizoaffective disorder, opioid disorder in sustained remission, depression, anxiety and PTSD who was admitted for worsening depression, poor attendance to ADLs and low motivation with increased SI. Diagnostically similar presentation to his past hospitalizations though this time he has been adherent with medications and has continued with outpatient therapy. Certainly some of his symptoms could be driven by negative symptoms from suspected schizoaffective disorder vs dependent PD traits vs neurovegetative symptoms from worsening depressive episode vs PTSD. He is deemed in need of psychiatric hospitalization for diagnostic clarification, safety and stabilization, medication management and development of further coping skills. MNPR due to history of impulsive aggression/agitation including during his last admission in 11/13/2022: Yesterday had considered discharge today but pt decided he wasn't ready because his chronic symptoms ("being tired", "not being able to do things", "those suicidal thoughts") remain present. He brought this up during his family meeting which naturally led to family feeling as if they couldn't manage him safely. Today voices more readiness for discharge. He says he still wakes up feeling "awful" but improves over the course of the day. We reviewed the sleep medicine appointment scheduled for the following day and the importance of ascertaining whether he has a sleep disorder. 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 11/12/2022: Tells me he doesn't think the medication (bupropion XL 150 mg of which his first dose was this morning) is working. Has sleep medicine appointment soon. Discussed connection between untreated EDISON and depression and treatment responses. He reports no new or worse problems and acknowledges that both the nature and the severity of his current symptoms are essentially "the same as they usually are". Presents with blunted, nearly flat, affect. He remains apathetic and anhedonic, and somewhat dependent, but has participated reasonably well in the milieu. Has a family meeting this afternoon and should be appropriate for discharge tomorrow. Devoted a bit over an hour to cognitive-behavioral therapy addressing reasonable expectations of medication but also of life in general - "ordinary happiness level). He reports no adverse effects attributable to medication. 11/11/2022: Ongoing depression with tearfulness, guilt, apathy, poor motivation. Tolerating initiation of Wellbutrin so far. Fasting glucose elevated, fasting lipid panel with elevated TGs, total cholesterol, borderline high LDL and low HDL. He had not been adherent recently with metformin or lipitor, reviewed helpfulness of these medications for his glucose and lipid profile and importance of adherence especially while on olanzapine. Only required one dose of ativan yesterday so will continue with dose taper. (1) Schizoaffective disorder, depressive type: (2) PTSD (post-traumatic stress disorder): (3) Suicidal ideation: (4) Diabetes mellitus: Plan 11/13/2022: * continue bupropion XL 150 mg QAM * continue lamotrigine 150 mg daily * continue olanzapine 10 mg QHS * continue efforts to taper lorazepam Suicide Risk Level Suicide Risk Level: Moderate (q15 min suicide checks) (due to severe depression with SI prior to admission but feels safe in the hospital, able to safety cont ract and agrees to let nursing/staff know should they develop plan, intent or feel unable to remain safe.) Risk Factors Assessment Male: Yes : Yes Do You Have Access To A Gun?: No Health Problems: Yes Mental Health Diagnoses: Yes Substance Use Disorders: Yes (sustained remission) Previous Attempt: Yes Family History of Suicide: No Previous Psychiatric Hospitalization: Yes Protective Factors Assessment Responsible for Young Children: Yes Employed: No Stable Relationships: Yes Supportive Family: No Good Rapport with Provider: Yes Interval History Identifying Information ALICIA DAVIS is a 42-year-old M who currently lives in [place] with his girlfriend, has a history of depression, opioid use disorder in sustained remission and schizoaffective disorder, and was admitted on 11/09/22 20:50 on a 201 voluntary commitment for worsened depression with SI. Chief Complaint "I guess I wasn't ready". Review of Systems Sleep Information Total Hours of Sleep: 7.75 Meal Information Percent Meal Consumed - Breakfast: 50 Percent Meal Consumed - Lunch: 100 Percent Meal Consumed - Dinner: 100 Nutrition Comment: fluids only Subjective Subjective Patient was seen & assessed and interval progress reviewed with nursing and social work Physical Exam Psychiatric Orientation: alert and oriented x 3 Apperance: appropriately dressed and appropriately groomed Eye Contact: good eye contact and + fair eye contact Motor Behavior: no abnormal motor movements Speech: normal rate/rhythm/volume of speech Affect: + blunted affect Mood: + depressed mood and + anxious mood Thought Process: goal directed thought process Thought Content: reality based without delusions Suicidal Thoughts: denies suicidal thoughts (chronic, intermittent suicidal thoughts ), denies suicidal plan and denies suicidal intent Homicidal Thoughts: denies homicidal thoughts Hallucinations: no auditory hallucinations and no visual hallucinations Cognition: recent memory grossly intact, remote memory grossly intact, attention grossly intact and language grossly intact Estimated Intelligence: consistent with education level Insight: + fair insight Judgment: + fair judgement Vital Signs (Past 24 Hours) Last Vital Signs Temp 36.5 C 11/13/22 06:39 Pulse 85 11/13/22 06:40 Resp 16 11/13/22 06:39 BP 131/85 11/13/22 06:40 Pulse Ox 98 11/09/22 21:27 O2 Del Method Room Air 11/09/22 21:27 Results & Data ([facility]) Laboratory Results Laboratory Results - last 24 hr 11/09/22 12:49 U Marijuana THC Carboxy 1419 H Drug Screen Comment SEE NOTE Current Inpatient Medications Current Inpatient Medications: Current Inpatient Medications Acetaminophen (Acetaminophen 325 Mg Tab) 650 mg PO Q4H PRN PRN Reason: Headache or Minor Fever Stop: 12/09/22 20:16 Al Hydrox/Mg Hydrox/Simethicone (Aluminum/Magnesium Susp 30 Ml Udc) 30 ml PO Q4H PRN PRN Reason: GI Upset Stop: 12/09/22 20:16 Atorvastatin Calcium (Atorvastatin 20 Mg Tab) 20 mg PO HS RAMÓN Stop: 12/10/22 21:59 Last Admin: 11/12/22 20:50 Dose: 20 mg Bismuth Subsalicylate (Bismuth Subsalicylate Liqd 236 Ml) 15 ml PO PRN PRN PRN Reason: Loose Stool Stop: 12/09/22 20:16 Bupropion HCl (Bupropion Xl 150 Mg Tabcr) 150 mg PO QAM RAMÓN Stop: 12/10/22 11:44 Last Admin: 11/13/22 08:40 Dose: 150 mg Gabapentin (Gabapentin 600 Mg Tab) 600 mg PO TID RAMÓN Stop: 12/10/22 13:59 Last Admin: 11/13/22 08:40 Dose: 600 mg Hydroxyzine HCl (Hydroxyzine Hcl 25 Mg Tab) 50 mg PO HSZ PRN PRN Reason: Insomnia Stop: 12/09/22 20:16 Hydroxyzine HCl (Hydroxyzine Hcl 25 Mg Tab) 25 mg PO Q4H PRN PRN Reason: Anxiety Stop: 12/09/22 20:16 Last Admin: 11/13/22 08:57 Dose: 25 mg Lamotrigine (Lamotrigine 100 Mg Tab) 150 mg PO DAILY RAMÓN Stop: 12/10/22 11:29 Last Admin: 11/13/22 08:40 Dose: 150 mg Lisinopril (Lisinopril 10 Mg Tab) 10 mg PO DAILY RAMÓN Stop: 12/10/22 11:29 Last Admin: 11/13/22 08:41 Dose: 10 mg Lorazepam (Lorazepam 1 Mg Tab) 1 mg PO DAILY PRN PRN Reason: panic attack Stop: 12/10/22 08:02 Last Admin: 11/12/22 19:26 Dose: 1 mg Magnesium Hydroxide (Magnesium Hydroxide Susp 30 Ml Udc) 30 ml PO DAILY PRN PRN Reason: Constipation Stop: 12/09/22 20:16 Metformin HCl (Metformin Hcl 500 Mg Tab) 500 mg PO BIDM RAMÓN Stop: 12/10/22 11:44 Last Admin: 11/13/22 08:41 Dose: 500 mg Olanzapine (Olanzapine 10 Mg Tab) 10 mg PO PM RAMÓN Stop: 12/10/22 20:59 Last Admin: 11/12/22 20:50 Dose: 10 mg Sodium Chloride (Sodium Chloride 0.65% Na Soln 45 Ml (Alfalfa)) 1 - 2 sprays NA PRN PRN PRN Reason: Nasal Dryness/Congestion Stop: 12/09/22 20:16 Mental Health & Subst Abuse Tx Psychiatrist Name of Psychiatrist: [facility] Psychiatrist's Date Of Appointment With Psychiatric Provider: 11/24/2022 Time of Appointment with Psychiatrist: 11:30am Psychiatric Appointment Comment: [address] , [place] [address] Therapist Name of Therapist: Shantell Dowd Therapist's Date of Therapist Appointment: 11/21/22 Time of Therapist Appointment: 3:00 pm Therapy Appointment Comment: [address], [address], [place] [address] Cottage Parent Name of Cottage Parent: None Post Discharge Appointments Primary Care Physician Name Of Family Doctor/PCP: [facility] Time of Appointment with PCP: please follow up as needed Provider Appointment Comment: [address], [place], [place] Specialist Name of Specialist: [facility]- Sleep Medicine, Sukhjinder Birch MD Phone Number for Specialist: [phone] Date of Appointment with Specialist: 11/15/22 Time of Appointment with Specialist: 3pm Specialty Appointment Comment: [facility] Sleep Lab- [address] [place], [place]
[2022-11-13] MEDS: ATORVASTATIN 20 MG TAB PO SCH (20:40)
[2022-11-13] MEDS: OLANZapine 10 MG TAB PO SCH (20:40)
[2022-11-14] MEDS: buPROPion XL 150 MG TABCR PO SCH (08:41)
[2022-11-14] MEDS: GABAPENTIN 600 MG TAB PO SCH ×2 (08:41→14:04)
[2022-11-14] MEDS: lamoTRIgine 100 MG TAB PO SCH (08:41)
[2022-11-14] MEDS: lisinopril 10 MG TAB PO SCH (08:42)
[2022-11-14] MEDS: metFORMIN HCL 500 MG TAB PO SCH (08:43)
--- NOTE | 2022-11-14 15:01 | Discharge Summary ---
Date of Service November 14, 2022 History of Present Illness Michael presented to the ED for worsening depression with passive SI, increasingly withdrawn and difficulty attending to his ADLs. He came to the hospital because "I'm just wanting to live", has been crying for hours, "real lethargic", and "flooded by bad thoughts of all the negatives from my past". He notes Cheyane and his kids are the "only thing keeping me going". He expresses "I feel like I'm doing everything I'm supposed to do and it's still going backwards". He notes stressors of his uncle dying and not being able to go to the service because "my family hates me" and ongoing grieving of the of his mother. He is scheduled for a sleep study on November 15. He notes he either sleeps too much or not at all. Further recent details reviewed and confirmed as documented by ED psych CM on 11/09/2022: "Pt is very tearful. He states that he has been crying for days. He has increased depression and sadness and states he has no will to live. Pt denies a suicidal plan but states I have overdosed in the past and that is probably what I would do. He cannot articulate any specific stressors or reasons for increased depression. Pt sees a psychiatrist at [facility] in [place]. He sees a therapist, Noemí, at [place] weekly. He has an appointment scheduled for tomorrow. Pt is not currently working. He lives with his girlfriend. He reports that he either sleeps too much or not at all. He reports that his psychiatrist recently switched him from an invega injection to abilify PO. Pt denies SIB. He denies D&A. He states that he smokes sometimes but it does not bother him if he doesnt smoke. Pt does not believe he can keep himself safe and is requesting inpatient treatment." He is currently prescribed psychiatric medications of: zyprexa (started two weeks ago, he's not sure if this is helping), lamictal, gabapentin, ativan 2mg TID (confirmed via PDMP review), doxepin. Physical Exam Psychiatric Orientation: alert, oriented to person, oriented to place, oriented to time and cooperative Apperance: appropriately dressed and appropriately groomed Eye Contact: good eye contact Motor Behavior: no abnormal motor movements Speech: normal rate/rhythm/volume of speech Affect: + constricted affect Mood: + depressed mood and + anxious mood Thought Process: goal directed thought process Thought Content: reality based without delusions Suicidal Thoughts: denies suicidal thoughts (chronic, intermittent suicidal thoughts ), denies suicidal plan and denies suicidal intent Homicidal Thoughts: denies homicidal thoughts Hallucinations: no auditory hallucinations and no visual hallucinations Cognition: recent memory grossly intact, remote memory grossly intact, attention grossly intact and language grossly intact Estimated Intelligence: consistent with education level Insight: + fair insight Judgment: + fair judgement Vital Signs (Past 24 Hours) Last Vital Signs Temp 36.5 C 11/14/22 12:41 Pulse 69 11/14/22 12:41 Resp 16 11/14/22 12:41 BP 143/97 H 11/14/22 12:41 Pulse Ox 98 11/14/22 12:41 O2 Del Method Room Air 11/09/22 21:27 See admission H&P and DOD assessment. Principal Diagnosis Schizoaffective Disorder, Bipolar Type Psychiatric Data See daily stay summary. In short, safety was maintained and the patient was cooperative with care. Medication changes included addition of bupropion XL 150 mg and taper of lorazepam and they tolerated this well. A family session was [held] and safety plan was completed prior to discharge. 11/13/2022: Yesterday had considered discharge today but pt decided he wasn't ready because his chronic symptoms ("being tired", "not being able to do things", "those suicidal thoughts") remain present. He brought this up during his family meeting which naturally led to family feeling as if they couldn't manage him safely. Today voices more readiness for discharge. He says he still wakes up feeling "awful" but improves over the course of the day. We reviewed the sleep medicine appointment scheduled for the following day and the importance of ascertaining whether he has a sleep disorder. He also notes that his new [employer] job is being held for him and is looking forward to this because brief, superficial social contact help his mood. 11/12/2022: Tells me he doesn't think the medication (bupropion XL 150 mg of which his first dose was this morning) is working. Has sleep medicine appointment soon. Discussed connection between untreated EDISON and depression and treatment responses. He reports no new or worse problems and acknowledges that both the nature and the severity of his current symptoms are essentially "the same as they usually are". Presents with blunted, nearly flat, affect. He remains apathetic and anhedonic, and somewhat dependent, but has participated reasonably well in the milieu. Has a family meeting this afternoon and should be appropriate for discharge tomorrow. Devoted a bit over an hour to cognitive-behavioral therapy addressing reasonable expectations of medication but also of life in general - "ordinary happiness level). He reports no adverse effects attributable to medication. 11/11/2022: Ongoing depression with tearfulness, guilt, apathy, poor motivation. Tolerating initiation of Wellbutrin so far. Fasting glucose elevated, fasting lipid panel with elevated TGs, total cholesterol, borderline high LDL and low HDL. He had not been adherent recently with metformin or lipitor, reviewed helpfulness of these medications for his glucose and lipid profile and importance of adherence especially while on olanzapine. Only required one dose of ativan yesterday so will continue with dose taper. Day of Discharge Assessment Today the patient voices readiness for discharge. They note improvement in mood and deny thoughts to harm self or others. Thoughts remain organized and they are improved from admission. There is no evidence of psychosis. They agree to take mediations as prescribed and keep follow-up appointments. They are stable for discharge to outpatient level of care. Transition of Care Transition Of Care Record: was reviewed with the patient Advance Directives Advance Directives Information Provided: Yes Advance Directives: No Mental Health Advance Directive: No Advance Directives on File: No Living Will: No Power of Corn Picker: No Advance Directives Reason:: Declines as Mental Health Visit. Suicide Risk Level Suicide Risk Level: Low (q15 min observation checks) Suicide Risk Level Comments: has had intermittent passive suicidal thoughts for years, reports these as currently at baseline Risk Factors Assessment Male: Yes : Yes Do You Have Access To A Gun?: No Health Problems: Yes Mental Health Diagnoses: Yes Substance Use Disorders: Yes (sustained remission) Previous Attempt: Yes Family History of Suicide: No Previous Psychiatric Hospitalization: Yes Protective Factors Assessment Responsible for Young Children: Yes Employed: No Stable Relationships: Yes Supportive Family: No Good Rapport with Provider: Yes Total Time Total Time Spent: Greater Than 30 Minutes Total Time Includes: Examination of the patient, Discharge Planning, Medication Reconciliation, Communication with other providers and As well as (documentation) Discharge Data Lab Results 11/09/22 11/09/22 11/09/22 12:49 12:49 12:49 WBC RBC Hgb Hct MCV MCH MCHC RDW Std Deviation RDW Coeff of Sunshine Plt Count MPV Immature Gran % (Auto) Neut % (Auto) Lymph % (Auto) Emmet % (Auto) Eos % (Auto) Baso % (Auto) Neut # (Auto) Lymph # (Auto) Emmet # (Auto) Eos # (Auto) Baso # (Auto) Immature Gran # (Auto) Sodium Potassium Chloride Carbon Dioxide Anion Gap BUN Creatinine Est Cr Clr Drug Dosing Est GFR ( Amer) Est GFR (Non-Af Amer) BUN/Creatinine Ratio Glucose Fasting Glucose Calcium Total Bilirubin AST ALT Alkaline Phosphatase Total Protein Albumin Globulin Albumin/Globulin Ratio Triglycerides Cholesterol LDL Cholesterol, Calc VLDL Cholesterol, Calc HDL Cholesterol Cholesterol/HDL Ratio TSH Urine Color Yellow Urine Appearance Clear Urine pH 5.5 Ur Specific [place] 1.023 Urine Protein Negative Urine Glucose (UA) Negative Urine Ketones 1+ H Urine Blood Negative Urine Nitrite Negative Urine Bilirubin Negative Urine Urobilinogen Negative Ur Leukocyte Esterase Negative Salicylates Urine Opiates Screen Neg Ur Methadone, Qual Neg Acetaminophen Urine Barbiturates Neg Ur Phencyclidine (PCP) Neg U Amphetamin/Meth Scrn Neg MDMA (Ecstasy) Screen Neg U Benzodiazepines Scrn Neg Ur Cocaine Metabolite Neg U Marijuana (THC) Screen Pos H U Marijuana THC Carboxy Drug Screen Comment Ethyl Alcohol mg/dL SARS-CoV-2, RNA, NAAT NEGATIVE 11/09/22 11/09/22 11/09/22 12:49 13:12 13:12 WBC 10.42 RBC 5.03 Hgb 15.7 Hct 45.3 MCV 90.1 MCH 31.2 MCHC 34.7 RDW Std Deviation 42.5 RDW Coeff of Sunshine 13.0 Plt Count 361 MPV 9.5 Immature Gran % (Auto) 0.4 Neut % (Auto) 64.2 Lymph % (Auto) 27.8 Emmet % (Auto) 6.4 Eos % (Auto) 0.3 Baso % (Auto) 0.9 Neut # (Auto) 6.69 H Lymph # (Auto) 2.90 Emmet # (Auto) 0.67 H Eos # (Auto) 0.03 Baso # (Auto) 0.09 Immature Gran # (Auto) 0.04 Sodium 140 Potassium 3.9 Chloride 108 H Carbon Dioxide 24 Anion Gap 8 BUN 11 Creatinine 1.26 Est Cr Clr Drug Dosing 85.2 Est GFR ( Amer) 81.6 Est GFR (Non-Af Amer) 70.4 BUN/Creatinine Ratio 8.7 L Glucose 125 H Fasting Glucose Calcium 9.8 Total Bilirubin 0.4 AST 27 ALT 36 Alkaline Phosphatase 56 Total Protein 8.2 Albumin 4.6 Globulin 3.6 Albumin/Globulin Ratio 1.3 Triglycerides Cholesterol LDL Cholesterol, Calc VLDL Cholesterol, Calc HDL Cholesterol Cholesterol/HDL Ratio TSH Urine Color Urine Appearance Urine pH Ur Specific [place] Urine Protein Urine Glucose (UA) Urine Ketones Urine Blood Urine Nitrite Urine Bilirubin Urine Urobilinogen Ur Leukocyte Esterase Salicylates Urine Opiates Screen Ur Methadone, Qual Acetaminophen Urine Barbiturates Ur Phencyclidine (PCP) U Amphetamin/Meth Scrn MDMA (Ecstasy) Screen U Benzodiazepines Scrn Ur Cocaine Metabolite U Marijuana (THC) Screen U Marijuana THC Carboxy 1419 H Drug Screen Comment SEE NOTE Ethyl Alcohol mg/dL SARS-CoV-2, RNA, NAAT 11/09/22 11/09/22 11/09/22 13:12 13:12 13:12 WBC RBC Hgb Hct MCV MCH MCHC RDW Std Deviation RDW Coeff of [place] Plt Count MPV Immature Gran % (Auto) Neut % (Auto) Lymph % (Auto) Emmet % (Auto) Eos % (Auto) Baso % (Auto) Neut # (Auto) Lymph # (Auto) Emmet # (Auto) Eos # (Auto) Baso # (Auto) Immature Gran # (Auto) Sodium Potassium Chloride Carbon Dioxide Anion Gap BUN Creatinine Est Cr Clr Drug Dosing Est GFR ( Amer) Est GFR (Non-Af Amer) BUN/Creatinine Ratio Glucose Fasting Glucose Calcium Total Bilirubin AST ALT Alkaline Phosphatase Total Protein Albumin Globulin Albumin/Globulin Ratio Triglycerides Cholesterol LDL Cholesterol, Calc VLDL Cholesterol, Calc HDL Cholesterol Cholesterol/HDL Ratio TSH 1.963 Urine Color Urine Appearance Urine pH Ur Specific [place] Urine Protein Urine Glucose (UA) Urine Ketones Urine Blood Urine Nitrite Urine Bilirubin Urine Urobilinogen Ur Leukocyte Esterase Salicylates < 3.0 L Urine Opiates Screen Ur Methadone, Qual Acetaminophen < 3 L Urine Barbiturates Ur Phencyclidine (PCP) U Amphetamin/Meth Scrn MDMA (Ecstasy) Screen U Benzodiazepines Scrn Ur Cocaine Metabolite U Marijuana (THC) Screen U Marijuana THC Carboxy Drug Screen Comment Ethyl Alcohol mg/dL < 10.0 SARS-CoV-2, RNA, NAAT 11/11/22 07:47 WBC RBC Hgb Hct MCV MCH MCHC RDW Std Deviation RDW Coeff of [place] Plt Count MPV Immature Gran % (Auto) Neut % (Auto) Lymph % (Auto) Emmet % (Auto) Eos % (Auto) Baso % (Auto) Neut # (Auto) Lymph # (Auto) Emmet # (Auto) Eos # (Auto) Baso # (Auto) Immature Gran # (Auto) Sodium Potassium Chloride Carbon Dioxide Anion Gap BUN Creatinine Est Cr Clr Drug Dosing Est GFR ( Amer) Est GFR (Non-Af Amer) BUN/Creatinine Ratio Glucose Fasting Glucose 124 H Calcium Total Bilirubin AST ALT Alkaline Phosphatase Total Protein Albumin Globulin Albumin/Globulin Ratio Triglycerides 211 H Cholesterol 204 H LDL Cholesterol, Calc 139 VLDL Cholesterol, Calc 42 H HDL Cholesterol 23 Cholesterol/HDL Ratio 8.9 H TSH Urine Color Urine Appearance Urine pH Ur Specific [place] Urine Protein Urine Glucose (UA) Urine Ketones Urine Blood Urine Nitrite Urine Bilirubin Urine Urobilinogen Ur Leukocyte Esterase Salicylates Urine Opiates Screen Ur Methadone, Qual Acetaminophen Urine Barbiturates Ur Phencyclidine (PCP) U Amphetamin/Meth Scrn MDMA (Ecstasy) Screen U Benzodiazepines Scrn Ur Cocaine Metabolite U Marijuana (THC) Screen U Marijuana THC Carboxy Drug Screen Comment Ethyl Alcohol mg/dL SARS-CoV-2, RNA, NAAT Hospital Course (1) Schizoaffective disorder, depressive type: (2) PTSD (post-traumatic stress disorder): (3) Suicidal ideation: (4) Diabetes mellitus: Plan 11/13/2022: * continue bupropion XL 150 mg QAM * continue lamotrigine 150 mg daily * continue olanzapine 10 mg QHS * continue efforts to taper lorazepam Mental Health & Subst Abuse Tx Psychiatrist Name of Psychiatrist: [facility] Psychiatrist's Date Of Appointment With Psychiatric Provider: 11/24/2022 Time of Appointment with Psychiatrist: 11:30am Psychiatric Appointment Comment: [address] [facility], [place] [address] Psychiatrist Release of Information: Obtained, Reviewed and Signed Therapist Name of Therapist: Shantell Dowd Therapist's Date of Therapist Appointment: 11/21/22 Time of Therapist Appointment: 3:00 pm Therapy Appointment Comment: [address], [place] [address] Therapist Release of Information: Obtained, Reviewed and Signed Amortization Schedule Clerk Name of Amortization Schedule Clerk: None Post Discharge Appointments Primary Care Physician [facility] Time of Appointment with PCP: please follow up as needed Provider Appointment Comment: [id number], [place], [place] Specialist Name of Specialist: [facility] Sleep Medicine, Sukhjinder Birch MD Phone Number for Specialist: [phone] Date of Appointment with Specialist: 11/15/22 Time of Appointment with Specialist: 3pm Specialty Appointment Comment: [facility]- [address] [place], [place] Discharge Plan Discharge Items Patient Disposition: Home - Self-Care Reason For Visit: MDD Discharge Diagnosis: Schizoaffective Disorder, Depressive Type Non-emergency contact: Primary Care Provider Call non-emergency contact if: you have any medication questions Follow-up/Referrals: Vamshi Montes III, CRNP [Primary Care Provider] - Diet: Regular Addtl Attending Provider Instructions: SPECIAL CARE INSTRUCTIONS: 1. Follow through with your scheduled aftercare appointments. If unable to keep an appointment, please call to reschedule. 2. Take your medication only as prescribed. Medication should not be changed or stopped without the approval of your doctor. In the event of worsening symptoms or concerns about side effects, contact your doctor immediately. 3. Utilize new healthy coping skills, anger management skills, and stress management skills learned during your hospitalization. Journal feelings and process them with a support person. Identify stressors or situations that may result in relapse, deterioration or inappropriate behaviors and develop a plan to deal with those issues. 4. If your coping skills are ineffective and you are in crisis, contact your outpatient providers for direction. If unable to reach your providers, please call the [facility] CRISIS LINE AT , go to the [facility] walk-in center at [address], [place], or go to the closest Emergency Room. 5. Avoid alcohol and un-prescribed drugs. 6. You have been provided with the Mental Health Advance Directives Pamphlet for your review. 7. Your condition is stable for discharge to outpatient level of care, but recovery is an ongoing process. Ifthoughts to harm yourself or others return, follow the safety plan developed during your stay. Planning for a safe return home includes securing weapons. Our treatment team recommends weaponsbe removed from the home until your outpatient provider reassesses your progress. In rare cases where the items themselvescannot be removed, guns and ammunitionshould be secured separatelyand keys stored by a reliable personoutside of the home. If you were admitted on an involuntary commitment, the police or other legal authorities may be involved in this process. AFTERCARE APPOINTMENTS: * Please call your insurance company prior to your scheduled appointment to confirm your aftercare providers are covered. Take your insurance information to your appointments. WHO TO CALL AND WHEN: Medical Emergencies: For questions or emergencies related to your hospital stay, please contact the Inpatient Behavioral Health Unit at [phone]. A historical manuscripts curator is on-call 13/03 for the Behavioral Health Unit for emergencies At any time you feel your situation is an emergency, you may also call 911 immediately. Pending Studies at Discharge: No Stand-Alone Forms: My [facility] Flowgram, Smoking Cessation Medications and DC Order Prescriptions: New bupropion HCl 150 mg Tablet Extended Release 24 Hr 150 mg PO QAM 30 Days Qty: 30 0RF lorazepam 1 mg Tablet 1 mg PO DAILY PRN (Reason: severe anxiety) 30 Days Qty: 30 0RF Continued gabapentin 600 mg tablet 600 mg PO TID atorvastatin 20 mg tablet 20 mg PO HS Qty: 90 1RF metformin 500 mg tablet 500 mg PO BID Qty: 180 1RF lisinopril 10 mg tablet 10 mg PO DAILY Qty: 90 1RF lamotrigine [Lamictal] 150 mg Tablet 150 mg PO DAILY propranolol 10 mg Tablet 10 mg PO TID olanzapine 10 mg Tablet 10 mg PO PM Discontinued lorazepam 2 mg tablet 2 mg PO TID doxepin 25 mg capsule 50 mg PO HS Discharge Orders: Discharge Order (Routine); Ordered 11/14/22 Ordered By: William Castañeda Admission Data Admit Date/Time: 11/09/22 20:50 Attending Provider: Juana Rivas Admit Provider: Juana Rivas Primary Care Provider: Vamshi Montes III Other Interventions: Discharge Summary Assessment (RN) Last Done: 11/14/22 12:41 PSY Interdisciplinary Discharge Planning Last Done: 11/14/22 12:42 Coding Level of Care Code 00246 D/C day mgmt > 30 min Diagnoses Schizoaffective disorder, depressive type F25.1 PTSD (post-traumatic stress disorder) F43.10 Suicidal ideation R45.851 Diabetes mellitus E11.9 Time Spent (min) 33
== END 2022-11-14 15:50 | disposition home or self-care (01) | DRG 885 ==
LOC: ED 12:31 → 3S 20:46